=== PATIENT | female | born 1950 | race Caucasian/White ===

== ENCOUNTER → 2020-06-19 11:08 | Outpatient (CLI) | payer OTHER, SELFPAY ==
[2020-06-19 10:42] VITALS: BMI 26.5
[2020-06-19 12:01] LABS: Absolute Lymphocyte Count 1.31 X10^3/uL (0.83-4.51); Absolute Neutrophil Count 2.9 X10^3/uL (2.0-7.7); Basophil# 0.02 X10^3/uL; Basophil% 0.4 % (0-1); Eosinophil# 0.05 X10^3/uL; Eosinophils% 1.1 % (0-5); Hematocrit 37.1 % (37-47); Hemoglobin 12.1 g/dL (12.0-15.0); Lymphocyte # 1.31 X10^3/ul (4.0); Lymphocyte % 28.7 % (19-41); Mean Corp Hgb Conc 32.6 g/dL (32-36); Mean Corpuscular Hgb 31.9 pg (27.0-32.0); Mean Corpuscular Volume 97.9 fL (81-99); Mean Platelet Vol. 10.8 fl (6.2-12.0); Monocyte# 0.32 X10^3/uL; NRBC Flagged by Analyzer 0 % (0-5); Neutrophil # 2.86 X10^3/uL (2.7-7.7); Neutrophil % 62.6 % (47-70); Platelet Count 246 K/mm3 (150-450); RBC Distribution Width CV 12.8 % (11.6-14.6); RBC Distribution Width SD 45.7 fl (35.1-43.9); Red Blood Count 3.79 M/mm3 (4.2-5.4); White Blood Count 4.6 K/mm3 (4.4-11.0)
[2020-06-19 12:28] LABS: ALB/GLOB Ratio 1.2 RATIO (0.9-2.4); AST(SGOT) 20 U/L (15-37); Alanine Aminotransfer ALT/SGPT 26 U/L (13-56); Albumin, Serum 4.1 g/dL (3.2-5.0); Alkaline Phosphatase 84 U/L (45-117); Anion Gap 6 (5-15); BUN 16 mg/dL (7-18); Calcium,Total 8.7 mg/dL (8.5-10.1); Chloride 105 mmol/L (98-107); EST Glomerular Filtration Rate 76 mL/min (>60); Est Glom Filt Rate - Afr Amer 92 mL/min (>60); Globulin 3.5 g/dL (2.2-4.2); Glucose 100 mg/dL (74-106); Protein, Total 7.6 g/dL (6.4-8.2); Sodium Level 140 mmol/L (136-145); T4 Free Direct 1.01 ng/dL (0.76-1.46); Thyroid Stim Hormone (TSH) 2.69 uIU/mL (0.358-3.74)
--- NOTE | 2020-06-19 16:49 | US_ITS ---
We are attempting to reach an attending provider to discuss findings. An addendum with communication details will be sent when the communication is complete. STUDY: ULTRASOUND TRANSVAGINAL CLINICAL: Female, 69 years old. Post menopausal bleeding -- HEAVY BLEEDING SINCE THIS MORNING TECHNIQUE: Transvaginal COMPARISON: None. FINDINGS: Normal uterine size measuring 7.3 x 5.7 x 4.1 cm in maximal craniocaudal dimension. There are no myometrial masses. Normal endometrial thickness measuring 19.1 mm. There is a small hyperechoic nodule within the endometrial lining with internal vascularity and adjacent cystic areas measuring 2.7 x 3.3 x 1.5 cm Normal uterine cervix. Right ovary is not visualized. There is no adnexal mass. Left ovary is not visualized. There is no adnexal mass. There is no free fluid in the pelvis. US/Transvaginal Non- IMPRESSION: Endometrial polypoid lesion with internal vascularity which may be consistent with polypoid neoplasm however clinical correlation is recommended Electronically Signed: Jose Yanes MD at 18:36 EDT , Service support ,
== END ==
PROVIDERS: PCP Internal Medicine; Referring Provider Internal Medicine; Visit Provider Internal Medicine
DX: N95.0 Postmenopausal bleeding (principal); I10 Essential (primary) hypertension
CPT/HCPCS: 36415; 76830; 80053; 84439; 84443; 85025

== ENCOUNTER → 2020-06-24 15:32 | Outpatient (CLI) | payer OTHER, SELFPAY ==
--- NOTE | 2020-06-24 | IMM_PTH ---
PATIENT: CARY SPRAGUE LOC: [facility] U#:[id number] AGE/SX: 74/F ROOM: RE06/24/[address]: MALATHI Amaya : 1950 BED: DIS: SPEC #: [id number] RECD: 06/26/20 10:55 STATUS: ANGIE REQ #: [id number] YULY: 06/24/20 00:[address]: Linda Nieves NP DEPT: IMMUNOHISTOCHEMISTRY RECD BY: Matilde Willams ENTERED: 06/26/20 11:02 SP TYPE: IMMUNO OTHR DR: Dr. Jose L Wiseman MD Tissues: Endometrium, NOS Procedures: MSH2 (add) MLH-1 (add) MSH6 (add) Anti-PMS2 (add) CEA (add) CK20 (add) CK7 (add) CK8 (add) DIAZ-2 (add) RODRICK (add) P53 (add) VA (add) Vimentin (add) Pankeratin (add) ER (initial) PHYSICIAN & [address] [address] SPECIMEN INFORMATION: Tissue Source: Endometrial biopsy Clinical Info: [facility] Specimen Number: [id number] #2 CPT code: 93108, 84827 x14 METHODOLOGY: Deparaffinized sections of prefer/formalin-fixed tissue or PAP/DQ stained slides are incubated with monoclonal/polyclonal antibodies/oligonucleotide probes. Localization is made via biotin free immunoperoxidase method. Appropriate controls are performed and reacted as expected. Results on target cell population are indicated in the following table: RESULTS: ANTIBODY / CLONE RESULT Block 2 ER (6F11) positive VA (1E2) negative AE1-3 (AE1/AE3/PCK26) positive CK7 (OV-TL12/30) positive CK8 (75bwnmV99) positive CK20 (KS20.8) negative Vimentin (V9) positive RODRICK (E29) positive CEA (11-7/TF-3HB-1) negative P53 (DO-7) positive, >95% DIAZ-2 (SP21) positive MLH-1 (M1) positive MSH2 (25D12) positive MSH6 (44) positive PMS2 (XOD4351) positive These tests were developed and their performance characteristics determined by [facility]. They may not have been cleared or approved by the U.S. Food and Drug Administration. The FDA has determined that such clearance or approval is not necessary. The above immunohistochemical/dualISH markers are ordered and reviewed by the Pathologist. INTERPRETATION: Endometrial biopsy: Papillary adenocarcinoma. Result of Microsatellite Instability Study: Negative (no loss of mismatch protein; no microsatellite instability detected). AM:dennis 06/29/2020
[2020-06-24 10:04] VITALS: BMI 25.7
--- NOTE | 2020-06-24 10:20 | EMB_PTH ---
PATIENT: CARY SPRAGUE LOC: [facility] U#:[id number] AGE/SX: 74/F ROOM: RE06/24/[address]: MALATHI Amaya : 1950 BED: DIS: SPEC #: [id number] RECD: 06/24/20 13:27 STATUS: ANGIE TERESA #: [id number] YULY: 06/24/20 10:[address]: Linda Nieves NP DEPT: SURGICAL PATHOLOGY RECD BY: Lou Hedrick ENTERED: 06/25/20 07:18 SP TYPE: ENDOM BX/C KARI DR: Dr. Jose L Wiseman MD Tissues: Endometrium, NOS Procedures: Surgery Specimen Level IV HEADER OPERATION: Endometrial biopsy PRE-OP DIAGNOSIS: PMB TISSUE SUBMITTED: Endometrial biopsy MICROSCOPIC DIAGNOSIS Endometrium, biopsy: Endometrial adenocarcinoma, predominantly papillary morphology, FIGO grade 3. See comment. AM:dennis 06/26/2020 COMMENT Immunohistochemistry ([id number]) supports the above diagnosis. Case has been reviewed in consultation with Dr. Noriega who concurs with the above diagnosis. IDC:SJ MICROSCOPIC DESCRIPTION Slides are reviewed. GROSS DESCRIPTION Received is one container labeled with the patient's name and not further designated. The specimen consists of multiple fragments of hemorrhagic soft tissue that in aggregate measure 7.5 x 3 x 0.3 cm. The specimen is totally submitted in three cassettes. / KATHY:dennis 06/25/20 TC:0 CPT: 95277
[2020-06-24 14:09] VITALS: BMI 25.5
--- NOTE | 2020-06-24 15:36 | BI_ITS ---
MAMMOGRAPHY - BILATERAL SCREENING REASON FOR EXAM: Female, 69 years old. Routine annual screening examination. PERTINENT HISTORY: Non-contributory. TECHNIQUE: Digital bilateral breast rian (3D mammographic acquisition) in the CC and MLO projections. 2-D mediolateral oblique (MLO) and craniocaudad (CC) views of both breasts were obtained. CAD: Full Field Digital Mammography with Computer Added Detection was performed. COMPARISON: Comparison is made with prior study dated 10/21/2016 and 01/09/2014. FINDINGS: Breast Composition: There are scattered areas of fibroglandular density. There are no dominant masses or suspicious calcifications. No other significant abnormalities are identified. There has been no significant change since the prior study. BI/SCRN MAMM (CAD)W/RIAN BILAT IMPRESSION: Stable bilateral screening mammogram. Yearly follow-up mammogram recommended. (A) ASSESSMENT CATEGORY: BIRADS Category 1: Negative. A letter regarding these results will be sent to the patient by the facility within 30 days. Approximately 10% of breast cancers are not detected by mammography. A normal mammogram should not delay biopsy of a clinically suspicious abnormality. [id number] Electronically Signed: Russ Lion MD at 8:24 EDT , Service support ,
[2020-06-29 16:28] LABS: HPV APTIMA, High Risk Negative (Negative)
== END ==
PROVIDERS: PCP Internal Medicine; Referring Provider Nurse Practitioner Women's Health; Visit Provider Nurse Practitioner Women's Health
DX: Z12.31 Encounter for screening mammogram for malignant neoplasm of breast (principal); Z12.4 Encounter for screening for malignant neoplasm of cervix; C54.1 Malignant neoplasm of endometrium; N95.0 Postmenopausal bleeding
CPT/HCPCS: 77063; 77067; 87624; 88175; 88305; 88341; 88342; G0145

== ENCOUNTER → 2020-08-13 09:04 | Outpatient (CLI) | payer OTHER, SELFPAY ==
[2020-06-24 14:09] VITALS: BMI 25.5
[2020-08-10 13:01] VITALS: BMI 25.5
--- NOTE | 2020-08-13 09:08 | NM_ITS ---
CLINICAL: 69-year-old female with reported history of endometrial carcinoma. WHOLE BODY 99m Tc MDP RADIONUCLIDE BONE SCINTIGRAPHY COMPARISON: None available FINDINGS: Following the intravenous administration of 23.0 mCi of 99m Tc MDP, whole body bone images reveal: 1. Increased radiopharmaceutical concentration is identified in the acromioclavicular and glenohumeral compartments of both shoulders, sternoclavicular compartment of the left shoulder, bilateral wrists and hands, both knees, the left ankle, right-left midfoot and left forefoot. 2. The remaining skeletal structures are scintigraphically unremarkable with normal-appearing renal images and urinary bladder activity identified. NM/Bone Scan Whole Body IMPRESSION: 1. The increase in tracer uptake defined in the bilateral shoulders, right and left wrists, both hands, knees bilaterally, the left ankle, right-left midfoot and left forefoot is most consistent with degenerative arthritis. Plain film radiography correlation may be of benefit in the region of the right knee. 2. No other definitive scintigraphic abnormalities are noted. There is no typical scintigraphic evidence of diffuse axial skeletal metastatic disease on the current examination. Electronically Signed: Sunday Granados DO at 23:10 EDT Tel , Service support ,
== END ==
PROVIDERS: PCP Internal Medicine; Referring Provider Internal Medicine Hematology & Oncology; Visit Provider Internal Medicine Hematology & Oncology
DX: C54.1 Malignant neoplasm of endometrium (principal); C79.51 Secondary malignant neoplasm of bone
CPT/HCPCS: 78306; A9503

== ENCOUNTER → 2020-08-14 12:45 | Outpatient (CLI) | payer OTHER, SELFPAY ==
[2020-06-24 14:09] VITALS: BMI 25.5
[2020-08-10 13:01] VITALS: BMI 25.5
--- NOTE | 2020-08-14 12:49 | CT_ITS ---
STUDY: CT CHEST, ABDOMEN T PELVIS WITH CONTRAST REASON FOR EXAM: Female, 69 years old. Endometrial cancer. Initial staging. RADIATION DOSAGE (If Supplied By Facility): CTDIvol = ( 11.36 ) mGy, DLP = ( 801.65 ) mGycm TECHNIQUE: Transaxial imaging was performed following intravenous administration of ; 100mL Isovue-300. Oral contrast was also utilized. Multiplanar coronal and sagittal images were reformatted. Individualized dose optimization techniques were used for this CT. COMPARISON: Whole-body bone scan, 08/13/2020. FINDINGS: CHEST The lungs are normal. There is no demonstrated pleural abnormality. Normal heart and pericardium. Normal mediastinum. Normal hilar regions. Normal unenhanced pulmonary arteries. Normal aorta arch and descending thoracic aorta. Mild degenerative changes of the thoracic spine. No lytic or blastic lesions. No evidence of fracture. ABDOMEN Liver is enlarged. There is a 7.7 x 7.7 x 7.0 cm cyst in segment 7 of the liver. A smaller 2.3 x 1.7 x 1.6 cm cyst is seen in segment IVb. There is no enhancing mass. Normal gallbladder and extrahepatic biliary system. Normal spleen. Normal pancreas. Normal bilateral adrenal glands. Normal right kidney. There is a 2.2 cm in the upper pole of the left kidney. No hydronephrosis. Normal bilateral ureters. Normal visualized stomach. Normal small intestine. Disease is seen in the colon without mass or obstruction. There are surgical clips in the region of the appendix consistent with a prior appendectomy. No evidence of mesenteric mass. Minimal atherosclerotic changes of the abdominal aorta without aneurysm or dissection. Normal inferior vena cava. Normal retroperitoneum. PELVIS Urinary bladder is poorly distended but appears otherwise unremarkable. Unremarkable vaginal cuff. There is no pelvic lymphadenopathy or mass. No free air or free fluid is seen within the peritoneal cavity. Normal abdominal wall. There are mild degenerative changes of the lumbar spine. No lytic or blastic lesions are seen. CT/CT Chest, Abd, Pel w/Contrast IMPRESSION: 1. No evidence of local recurrence or metastatic disease. 2. Hepatic and left renal cysts. 3. Status post hysterectomy. Electronically Signed: Min Jay DO at 20:08 EDT Tel [phone], Service support ,
== END ==
PROVIDERS: PCP Internal Medicine; Referring Provider Internal Medicine Hematology & Oncology; Visit Provider Internal Medicine Hematology & Oncology
DX: C54.1 Malignant neoplasm of endometrium (principal)
CPT/HCPCS: 71260; 74177; Q9967

== ENCOUNTER → 2020-08-20 12:55 | Outpatient (CLI) | payer OTHER, SELFPAY ==
[2020-08-10 13:01] VITALS: BMI 25.5
[2020-08-17 15:37] VITALS: BMI 25.3
--- NOTE | 2020-08-20 12:58 | ECHODONC_ITS ---
Version 2 Reason For Study: HIGH RISK MEDICATION, PRE-CHEMO Procedure This was a 2D Doppler, Color Flow transthoracic echocardiogram. Myocardial strain analysis was performed in this exam to aid in the assessment of cardiac function. Exam performed in department. Left Ventricle Normal LV size. Left ventricular systolic function is normal. The estimated ejection fraction is 60 %. Stage 1 diastolic dysfunction. No regional wall motion abnormalities noted. Right Ventricle Normal RV size. Normal systolic function. Atria Normal left atrium. Normal right atrium. Mitral Valve Normal mitral valve. Tricuspid Valve Normal tricuspid valve. Mild tricuspid valve insufficiency. Pulmonary artery systolic pressure is 24 mmHg. Aortic Valve Trisinus/trileaflet aortic valve. Mild (1+) aortic valve insufficiency. Pulmonic Valve Normal pulmonic valve. Great Vessels Normal aortic root. The pulmonary artery is normal size. Normal inferior vena cava. Pericardium/Pleural No pericardial effusion. MMode/2D Measurements & Calculations LVIDd: 3.6 cm IVSd: 0.86 cm Ao root diam: 3.2 cm LVIDs: 2.4 cm LVPWd: 0.86 cm RVDd: 3.0 cm FS: 33.0 % LAV(MOD-bp): 27.9 ml LVAd ap4: 24.7 cm2 SV(MOD-sp4): 45.4 ml LAV(MOD-bp) Indexed: 16.3 ml/m2 LVLd ap4: 6.6 cm LAV(MOD-sp2): 33.9 ml EDV(MOD-sp4): 74.0 ml LAV(MOD-sp4): 19.4 ml EDV(sp4-el): 77.8 ml LVAs ap4: 14.1 cm2 LVLs ap4: 5.7 cm ESV(MOD-sp4): 28.6 ml ESV(sp4-el): 29.5 ml EF(MOD-sp4): 61.4 % EF(sp4-el): 62.0 % SV(sp4-el): 48.2 ml LA A4 area: 9.8 cm2 LA dimension(2D): 2.8 cm RA A4 area: 8.8 cm2 Time Measurements MV dec time: 0.31 sec Doppler Measurements & Calculations MV E max rian: 48.0 cm/sec Lat Peak E' Rian: 6.7 cm/sec Med Peak E' Rian: 4.7 cm/sec MV A max rian: 60.5 cm/sec E/E' lat: 7.2 E/E' med: 10.1 MV E/A: 0.79 Ao V2 max: 108.7 cm/sec AI max rian: 349.0 cm/sec LV V1 max: 109.6 cm/sec Ao max P.7 mmHg AI max P.7 mmHg LV V1 max P.8 mmHg AI dec slope: 229.0 cm/sec2 AI P1/2t: 446.4 msec PA V2 max: 79.7 cm/sec PI end-d rian: 101.3 cm/sec TR max rian: 227.0 cm/sec TR max P.3 mmHg ECHO/ONC Echo Complete Interpretation Summary Normal LV size. Left ventricular systolic function is normal. The estimated ejection fraction is 60 %. Stage 1 diastolic dysfunction. Mild (1+) aortic valve insufficiency. The global longitudinal strain is normal. The global longitudinal strain = -19. 3 % (normal). Ordering Physician: Rishi Gonzalez Referring Physician: ASHLEIGH MONTE Performed By: Rylee Marte RDCS
== END ==
PROVIDERS: PCP Internal Medicine; Referring Provider Internal Medicine Cardiovascular Disease; Visit Provider Internal Medicine Cardiovascular Disease
DX: C77.9 Secondary and unspecified malignant neoplasm of lymph node, unspecified (principal); C54.1 Malignant neoplasm of endometrium; M85.80 Other specified disorders of bone density and structure, unspecified site; M19.90 Unspecified osteoarthritis, unspecified site; Z51.81 Encounter for therapeutic drug level monitoring; Z79.899 Other long term (current) drug therapy
CPT/HCPCS: 93306; 93356

== ENCOUNTER 2020-09-07 10:29 | Day surgery (SDC) | payer MEDICARE, OTHER, SELFPAY ==
[2020-08-10 13:01] VITALS: BMI 25.5
[2020-08-21 08:31] VITALS: BMI 25.4
[2020-09-07] VITALS (7 sets, daily range): BP systolic 125–148; BP diastolic 63–77; PULSE 73–90; RESP 16; TEMP 35.7–37.1; O2SAT 98–100; BMI 25.4
[2020-09-07] MEDS: Lactated Ringers 1,000 ML 100 ML IV (11:16)
[2020-09-07] MEDS: Bupiv/Epi 0.25% 30 ML Vial (12:10)
[2020-09-07] MEDS: Cefazolin 2 GM in 0.9% Normal Saline 100 ML IV (12:10)
--- NOTE | 2020-09-07 12:13 | HP.PCM_ITS ---
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 Is patient in pain?: No Allergies levofloxacin [From Levaquin] Allergy (Severe, Verified 08/10/20 13:01) abdominal pain Medications ascorbate calcium (vitamin C) 500 mg tablet 500 mg PO DAILY 06/19/20 [History Confirmed 08/10/20] cholecalciferol (vitamin D3) 25 mcg (1,000 unit) capsule 25 mcg PO DAILY 06/19/20 [History Confirmed 08/10/20] multivitamin 1 tablet PO DAILY 06/19/20 [History Confirmed 08/10/20] Is last menstrual period known: No Post menopausal: Yes Patient : No PFSH Medical History (Updated 08/10/20 @ 12:59 by Shana Spencer) Cancer of endometrium Hemorrhoids History of fracture of ankle Osteoarthritis Osteopenia Post-menopausal bleeding Regional lymph node metastasis present Surgical History (Updated 08/10/20 @ 12:59 by Shana Spencer) History of ankle surgery History of colonoscopy (~2003) History of knee surgery History of sinus surgery Family History Father Cancer lung Sister Depression Thyroid disorder Hypertension Skin cancer Diabetes Grandmother Osteoporosis Mother Hypertension Skin cancer Aunt Cancer cervical cancer Other Arthritis Social History (Updated 08/06/20 @ 09:17 by Micki Cuellar) Smoking Status: Never smoker second hand exposure: No alcohol intake: never caffeine: Yes what type of physical activity do you participate in: walking frequency: 3-4 times per week seatbelt use: always do you feel safe at home: Yes additional social history: [employer] HPI HPI HPI: CARY SPRAGUE, is a 69 F who presents to the office today for port placement due to endometrial cancer with lymph node metastasis. Patient has completed surgery with Dr. Richey and is currently seeing Dr. Ignacio per oncology. Plan to start treatments once patient is able to be switched to Medicare. Likely beginning of August. Patient denies any abdominal pain incisions healing well. ROS General General: No weight change or fatigue Gastro Gastrointestinal: No abdominal pain, No nausea or vomiting, No diarrhea, No constipation, No blood in stool, No acid reflux, Yes hemorrhoids, No ulcers, No gallbladder problem and No black,tarry stools Exam Const General: cooperative, healthy appearing, comfortable and no acute distress Neck Neck: normal visual inspection Chest Other: Inspection palpation of upper chest normal Resp Effort & Inspection: normal respiratory effort Cardio Rate: regular rate GI Inspection: non-distended Palpation: soft, no guarding and nontender Skin General: no rashes or lesions noted Neuro General: patient oriented x3 Psych Affect: normal affect COVID (Procedure Consent) Procedure Criteria Procedure Criteria: Yes Elective The surgeon/proceduralist and patient have discussed in detail the risk of exposure to and/or potential harm posed by the COVID-19 virus with having a surgery/procedure at this time versus the risk of delaying the surgery/procedure. It is not possible to know either the risk of delaying the surgery or procedure or chance of getting an infection with perfect accuracy, but a joint decision was made between the patient and the surgeon/proceduralist to proceed at this time with the scheduled surgery/procedure as indicated on the consent form. Assessment and Plan Assessment and Plan (1) Cancer of endometrium: Status: Acute (2) Regional lymph node metastasis present: Status: Acute (3) Admission for fitting and adjustment of vascular catheter: Plan - Dr. Arielle Sol MD: I have discussed above with the patient- Port-a-Cath placement. Right possible left, scheduling for 08/27/2020 per patient request Patient has been counseled as to the risks/benefits of the procedure. I have explained the risks of the surgery, including but not limited to: infection, bleeding, injury to any blood vessels/nerves, injury to lungs (such as pneumothorax or hemothorax and need for chest tube), not having any access, nonfunctioning of port due to thrombosis, infection of port, etc. the patient understands and agrees to proceed. I have answered all the patient's questions to the patient?s satisfaction and the patient has no further questions. Arielle Sol M.D. Pager: [phone] [facility] [address] [place] [address], [address] [place] [id number] Office: [phone] I saw the patient today and individually saw and examined the patient. The patient was seen by Dr. Sol who was unable to be here today to perform her port. I discussed port placement with the patient in detail. I discussed the risk including but not limited to bleeding, infection, pneumothorax, line infection or DVT. Patient understands the risks and I will proceed with right- sided chest port placement. Davin Mccullough MD Pager: [facility] [address] [place] [phone] Office:
--- NOTE | 2020-09-07 12:54 | OP.PCM_ITS ---
Problems Associated Problem List Diagnoses (1) Cancer of endometrium: (2) Encounter for insertion of venous access port: Report of Operation Date of Procedure: 09/07/20 Pre-Operative Diagnosis: Need for vascular access for chemotherapy for endometrial carcinoma Post-Operative Diagnosis: Same Surgery/Procedure Performed:: Ultrasound and fluoroscopy guided right chest port placement utilizing right IJ Description of Procedure: After obtaining informed consent patient was brought back to the operating room MAC anesthesia was induced and the right chest and neck were prepped in normal sterile fashion. Ultrasound was used to evaluate both IJs and the right IJ was selected. Next, using a needle, the right IJ was accessed and a guidewire was passed on into the superior vena cava under fluoroscopy guidance. A small incision was made over the puncture site and the dilator introducer was placed over the guidewire. Next this was capped and the pocket was made for the port. 1% lidocaine with epinephrine was injected in the proposed port site. An incision was made with scalpel. Electrocautery was used to make a pocket under the skin and subcutaneous tissue. Hemostasis was obtained. Next, the catheter was tunneled up to the neck incision site and placed through the introducer. The peel-away introducer was removed and the position of the catheter was confirmed on fluoroscopy. Next, the catheter was trimmed and attached to the port with the locking device. Interrupted 2-0 Vicryl sutures were used to anchor the port to the chest wall and then the port was placed inside the pocket. The pocket was then flushed with saline and the port irrigated with saline. There was good blood return and the port flushed easily. The skin was closed with subcutaneous interrupted 3-0 Vicryl sutures. A single 3-0 Vicryl sutures placed under the skin at the neck incision site. Steri-Strips were placed as well as op sites. The port was then accessed with the access needle and there was good drawback and flushing. The port was then flushed with heparinized saline. The bandage was then applied. Patient tolerated procedure well, was taken to PACU in stable condition. Chest x-ray will be obtained. Grafts/Implants Used: 8 [place] [employer]Port Admit VTE Documentation VTE Mechan Device Prophylaxis: SCD's
--- NOTE | 2020-09-07 12:56 | EX.PCM.DISCH ---
Discharge Instructions Procedure Port-A-Cath Diet Discharge Diet: Light diet - advance as tolerated (Pain medication may cause nausea. You should typically eat light foods as you take your pain medication.) Activity Discharge Activity: Return to Normal Activity and May Shower (with your bandage in place in 1-2 days after surgery. DO NOT SHOWER WHEN YOUR PORT IS ACCESSED.) Dressing / Incision Call your doctor if your incision/area has: Continuous Slow Oozing, Sudden Increased Bleeding, Increased Pain/ Swelling and Increased Redness Call your doctor if you observe: Fever of 101 or Higher Remove Dressing in: tomorrow Cleanse incision/area with: Soap & Water Follow Up Care Please Follow Up With: Davin Mccullough MD When: Follow up as needed. [phone] Test Results: Test results from this visit will be discussed in further detail at your follow-up appointment, if applicable. Discharge Plan Admission Attending Provider: Davin Mccullough Primary Care Provider: Jose L Wiseman Discharge Orders/Prescriptions Prescriptions: No Action multivitamin Tablet 1 tablet PO DAILY RF: 0 cholecalciferol (vitamin D3) 25 mcg (1,000 unit) capsule 25 mcg PO DAILY RF: 0 prochlorperazine maleate 10 mg tablet 10 mg PO Q6H PRN (Reason: nausea and vomiting) Qty: 30 RF: 2 ondansetron 8 mg tablet,disintegrating 8 mg PO Q8H PRN (Reason: nausea and vomiting) Qty: 30 RF: 2 lidocaine-prilocaine 2.5-2.5 % cream 1 applic topical ONCE PRN (Reason: Port access) 30 Days Qty: 30 RF: 2 Referrals / Follow Up: Jose L Wiseman MD [Primary Care Provider] - Disposition Disposition (needs filled in before D/C Order can be placed): Home, self care
--- NOTE | 2020-09-07 13:00 | RAD_ITS ---
STUDY: X-RAY CHEST REASON FOR EXAM: Female, 69 years old. Line placement -- in pacu TECHNIQUE: Single AP portable view of the chest. COMPARISON: None. FINDINGS: A right-sided portacatheter has been placed with the tip at the junction of the superior vena cava and right atrium. Hyperinflation. The lungs are clear. There is no demonstrated pleural abnormality. Normal size heart. Normal mediastinum and kali. Normal visualized pulmonary arteries. There is atherosclerotic calcification of the aortic arch with tortuosity. There are degenerative changes of the visualized thoracic spine. Normal visualized ribs, clavicles, and shoulders. There is no demonstrated abnormality of the visualized soft tissue structures of the upper abdomen. RAD/CXR for Line Placement IMPRESSION: The tip of the right-sided edita catheter is at the junction of the superior vena cava and right atrium. Electronically Signed: Russ Lion MD at 13:22 EDT , Service support ,
== END 2020-09-07 13:45 | disposition home or self-care (01) ==
LOC: SDC 10:35 → AC 10:36
PROVIDERS: PCP Internal Medicine; Referring Provider Surgery; Visit Provider Surgery
PROC: (CPT 36561; principal; 2020-09-07 12:00)
DX: Z45.2 Encounter for adjustment and management of vascular access device (principal); C54.1 Malignant neoplasm of endometrium; C77.9 Secondary and unspecified malignant neoplasm of lymph node, unspecified; Z88.1 Allergy status to other antibiotic agents
CPT/HCPCS: 00532; 36561; 71045; 77001; J7120; C1788

== ENCOUNTER → 2020-12-21 13:10 | Outpatient (CLI) | payer MEDICARE, OTHER, SELFPAY ==
[2020-09-30 09:10] VITALS: BMI 25.6
--- NOTE | 2020-12-21 13:22 | CT_ITS ---
STUDY: CT CHEST, ABDOMEN T PELVIS WITH CONTRAST REASON FOR EXAM: Female, 70 years old. F/U UTERINE CANCER. IV AND PO CONTRAST. RADIATION DOSAGE (If Supplied By Facility): CTDIvol = ( 8.60 ) mGy, DLP = ( 754.47 ) mGycm TECHNIQUE: Transaxial imaging was performed following intravenous administration of Oral and amp; IV Gastrografin and amp; 100mL Isovue-300. Individualized dose optimization techniques were used for this CT. COMPARISON: Comparison is made with prior examination dated 08/14/2020. FINDINGS: CHEST A right-sided portacatheter is seen with the tip in the superior vena cava. Stable small benign-appearing bilateral axillary lymph nodes. Mild degree of emphysematous changes. No focal mass lesion or infiltration is seen. There is no demonstrated pleural abnormality. Normal heart and pericardium. Normal mediastinum. Normal hilar regions. Normal unenhanced pulmonary arteries. Mild degree of calcified atherosclerotic plaques of the aortic arch and descending thoracic aorta. There are degenerative changes of the thoracic spine. Increased kyphosis. There is a 7.7 cm x 7.9 cm cyst in the mid and inferior aspects of the right lobe of the liver. ABDOMEN There is a 7.7 cm x 7.9 cm cyst in the mid and inferior aspects of the right lobe of the liver. This is essentially unchanged. There is also evidence of a 2.4 cm x 1.4 cm cyst in the medial aspect of the right lobe of the liver. Normal gallbladder and extrahepatic biliary system. Normal spleen. Normal pancreas. Normal bilateral adrenal glands. Normal right kidney. There is a 2.7 cm x 2.5 summary cyst in the medial upper pole of the left kidney. Normal visualized stomach. Normal small intestine. Normal colon. The patient is status post appendectomy. There is atherosclerotic calcification of the abdominal aorta and its major visceral branches, without a demonstrated aneurysm. Normal inferior vena cava. Normal retroperitoneum. PELVIS There is evidence of a cystocele. The patient is status post hysterectomy. Normal visualized small intestine. Normal visualized colon. There is no pelvic fluid. There is no pelvic lymphadenopathy or mass lesion. Normal visualized pelvic arteries. Normal abdominal wall. There are degenerative changes of the visualized lumbar spine. CT/CT Chest, Abd, Pel w/Contrast IMPRESSION: Stable examination. Electronically Signed: Russ Lion MD at 14:40 EDT , Service support ,
[2020-12-21 13:26] LABS: CREATININE FINGERSTICK 0.7 mg/dL (0.55-1.02); EGFR FINGERSTICK > 60.0000 mL/min (>60)
[2020-12-21] MEDS: 0.9% Saline Lock 10 ML Syringe IV (13:29)
== END ==
PROVIDERS: PCP Internal Medicine; Visit Provider Internal Medicine Hematology & Oncology
DX: C54.1 Malignant neoplasm of endometrium (principal); C77.9 Secondary and unspecified malignant neoplasm of lymph node, unspecified; M85.80 Other specified disorders of bone density and structure, unspecified site
CPT/HCPCS: 36591; 71260; 74177; 80053; 85025; 86304; Q9967; A4216

== ENCOUNTER 2021-01-22 09:58 | Day surgery (SDC) | payer MEDICARE, OTHER, SELFPAY ==
--- NOTE | 2021-01-22 09:58 | HP.PCM_ITS ---
History and Physical Date of Admission: 01/22/21 Date of Service: 01/05/21 Intake Vital Signs 01/05/21 09:23 Height 5 ft 4 in Weight: 147 lb BMI 25.2 BP 145/76 H Blood Pressure Location Rt brachial Position Sitting Respiration 16 Intake Visit Reasons: C-Scope Chief Complaint: c-scope [employer] Required: No Is patient in pain?: No Allergies carboplatin Allergy (Severe, Verified 01/05/21 09:24) Rash hyaluronidase [From Herceptin Hylecta] Allergy (Severe, Verified 01/05/21 09:24) Rash paclitaxel [From Taxol] Allergy (Severe, Verified 01/05/21 09:24) Rash trastuzumab-oysk [From Herceptin Hylecta] Allergy (Severe, Verified 01/05/21 09:24) Rash levofloxacin [From Levaquin] Adverse Reaction (Severe, Verified 01/05/21 09:24) abdominal pain Medications cholecalciferol (vitamin D3) 25 mcg (1,000 unit) capsule 25 mcg PO DAILY 06/19/20 [History Confirmed 01/05/21] multivitamin 1 tablet PO DAILY 06/19/20 [History Confirmed 01/05/21] lidocaine-prilocaine 2.5 %-2.5 % topical cream 1 applic TOPICAL ONCE PRN 30 Days #30 g 08/17/20 [Rx Confirmed 01/05/21] ondansetron 8 mg disintegrating tablet 8 mg PO Q8H PRN #30 tab 08/17/20 [Rx Confirmed 01/05/21] prochlorperazine maleate 10 mg tablet 10 mg PO Q6H PRN #30 tab 08/17/20 [Rx Confirmed 01/05/21] Hydrocortisone 2.5%/lidocaine 5% suppository (cmpd) #30 ea 01/05/21 [Rx Co nfirmed 01/05/21] [facility] Medical History (Updated 01/05/21 @ 09:[address] Arielle Sol MD) Arthritis Cancer Cancer of endometrium Cardiology follow-up encounter Hemorrhoids History of fracture of ankle Hx of echocardiogram Non-smoker Osteoarthritis Osteopenia Post-menopausal bleeding Regional lymph node metastasis present Wears glasses Surgical History History of ankle surgery History of colonoscopy (2003) History of knee surgery History of sinus surgery Hx of total hysterectomy Family History Father Cancer lung Sister Depression Thyroid disorder Hypertension Skin cancer Diabetes Grandmother Osteoporosis Mother Hypertension Skin cancer Aunt Cancer cervical cancer Other Arthritis Social History Smoking Status: Never smoker second hand exposure: No alcohol intake: never caffeine: Yes what type of physical activity do you participate in: walking frequency: 3-4 times per week seatbelt use: always do you feel safe at home: Yes additional social history: [employer] [facility] HPI HPI HPI: CARY SPRAGUE, is a 70 F who presents to the office today for hemorrhoids and screening colonoscopy. Patient was recently diagnosed with endometrial adenocarcinoma in May of this year. In August patient started adjuvant chemotherapy however she did not tolerate this well and did stop after the first cycle due to side effects. Patient states she has had hemorrhoids since childhood patient has 5 kids. States that she does have some daily bleeding and needing to push the hemorrhoid back in. Patient states that she occasionally has some constipation and occasionally has some straining as well. Patient's last colonoscopy was 16 years ago. Patient denies any family history of colon cancer. Patient denies any pain with her hemorrhoids but does admit to a high pain tolerance. ROS General General: No weight change or fatigue Gastro Gastrointestinal: No abdominal pain, No nausea or vomiting, No diarrhea, No constipation, No blood in stool, No acid reflux, Yes hemorrhoids, No ulcers, No gallbladder problem and No black,tarry stools Exam Const General: cooperative, healthy appearing, comfortable and no acute distress Neck Neck: normal visual inspection Resp Effort & Inspection: normal respiratory effort Cardio Rate: regular rate GI Inspection: non-distended Palpation: soft, no guarding and nontender Rectal Exam: normal sphincter tone, hemorrhoids (Internal at about 5:00, manually reduced, no active bleeding) and No mass Skin General: no rashes or lesions noted Neuro General: patient oriented x3 Psych Affect: normal affect COVID (Procedure Consent) Procedure Criteria Procedure Criteria: Yes Elective The surgeon/proceduralist and patient have discussed in detail the risk of exposure to and/or potential harm posed by the COVID-19 virus with having a surgery/procedure at this time versus the risk of delaying the surgery/procedure. It is not possible to know either the risk of delaying the surgery or procedure or chance of getting an infection with perfect accuracy, but a joint decision was made between the patient and the surgeon/proceduralist to proceed at this time with the scheduled surgery/procedure as indicated on the consent form. Assessment and Plan Assessment and Plan (1) Hemorrhoids: Status: Inactive (2) Screening for colon cancer: Status: Acute Plan - Dr. Arielle Sol MD: Did discuss with patient that hydrocortisone/lidocaine suppositories may help with her hemorrhoids and not be at bothersome to her. Patient was willing to try medication first before going forward with any surgery. Did discuss surgery with the patient as well as that it can be a painful surgery. Also went over recommended fiber for her age is 20 g daily and gave her a sheet of high-fiber foods as well. We will schedule colonoscopy and patient will let us know if the medication does not help with her hemorrhoids and she preferred to have them excised. I have discussed the above with the patient. I have offered the patient colonoscopy for evaluation. I have explained the risks/benefits of the procedure and described the procedure. I have discussed the risks with the patient, including but not limited to: infection, bleeding, perforation of the GI tract requiring emergency surgery, inability to complete the procedure, injury to any internal organs, complications of anesthesia, etc. - the patient understands and agrees to proceed. I have answered all the patient's questions to the patient's satisfaction and the patient has no further questions. The patient has been given instructions for the colon cleansing preparation. Arielle Sol M.D. Pager: [phone] [facility] [address] [place] [address], [address] [place] [address] Office: [phone] Plan Details Other Medications: New: Hydrocortisone 2.5%/lidocaine 5% suppository (cmpd) As directed 30 ea 1RF Other Orders: Orders: Colonoscopy Today Follow Up: We will schedule colonoscopy Coding Level of Care Code Off vis,est,level 3 Diagnoses Hemorrhoids K64.9 Screening for colon cancer Z12.11 01/05/21 1001<Electronically signed by Arielle Sol MD>[facility]
[2021-01-22 10:31] VITALS: BP 124/68; PULSE 82; RESP 16; TEMP 36.5; O2SAT 99; BMI 24.9
[2021-01-22] MEDS: Lactated Ringers 1,000 ML 100 ML IV (10:35)
[2021-01-22 11:40] VITALS: BP 104/52; BP 124/68; PULSE 74; RESP 14; TEMP 35.8; O2SAT 100
--- NOTE | 2021-01-22 11:43 | OP.COLON_ITS ---
Patient Name: Genevieve Swenson Procedure Date: 01/22/2021 10:51 AM Date of : 1950 Age: 70 Procedure: Colonoscopy Indications: Screening for colorectal malignant neoplasm Providers: Arielle Sol MD Medicines: Monitored Anesthesia Care Patient Profile: This is a 70 year old female. Last Colonoscopy: more than 10 years ago. Complications: No immediate complications. Procedure: Pre-Anesthesia Assessment: - Prior to the procedure, a History and Physical was performed, and patient medications and allergies were reviewed. The patient's tolerance of previous anesthesia was also reviewed. The risks and benefits of the procedure and the sedation options and risks were discussed with the patient. All questions were answered, and informed consent was obtained. Prior Anticoagulants: The patient has taken no previous anticoagulant or antiplatelet agents. ASA Grade Assessment: Per anesthesia. After reviewing the risks and benefits, the patient was deemed in satisfactory condition to undergo the procedure. After I obtained informed consent, the scope was passed under direct vision. Throughout the procedure, the patient's blood pressure, pulse, and oxygen saturations were monitored continuously. The pediatric colonoscope was introduced through the anus and advanced to the cecum, identified by the appendiceal orifice, IC valve and transillumination. The colonoscopy was technically difficult and complex due to a tortuous colon. The patient tolerated the procedure well. The quality of the bowel preparation was good. Scope In: 11:02:07 AM Scope Withdrawal Time 0 hours 6 minutes 32 seconds Scope Out: 11:34:31 AM Total Procedure Duration Time 0 hours 32 minutes 24 seconds Findings: Hemorrhoids were found on perianal exam. Non-bleeding external and internal hemorrhoids were found. The hemorrhoids were Grade II (internal hemorrhoids that prolapse but reduce spontaneously). The exam was otherwise without abnormality. Impression: - Hemorrhoids found on perianal exam. - Non-bleeding external and internal hemorrhoids. - The examination was otherwise normal. - No specimens collected. Recommendation: - Discharge patient to home. - Resume previous diet. - Continue present medications. - Repeat colonoscopy in 10 years for screening purposes. Procedure Code(s): --- Professional --- G0121, PT, Colorectal cancer screening; colonoscopy on individual not meeting criteria for high risk Diagnosis Code(s): --- Professional --- Z12.11, Encounter for screening for malignant neoplasm of colon K64.1, Second degree hemorrhoids CPT copyright 2017 [employer]. All rights reserved. The codes documented in this report are preliminary and upon senior software tester review may be revised to meet current compliance requirements. MD Arielle Gonzalez MD 01/22/2021 11:43:03 AM This report has been signed electronically. Number of Addenda: 0 Note Initiated On: 01/22/2021 10:51 AM
--- NOTE | 2021-01-22 11:44 | OP.CCLET_ITS ---
01/22/2021 Jose L Wiseman MD [address] [place] [address] [place] [address] Re : Colonoscopy procedure for Genevieve Swenson Dear Dr. Wiseman This procedure was performed on Friday, January 22, 2021. My impressions and recommendations are as follows: Impressions : - Hemorrhoids found on perianal exam. - Non-bleeding external and internal hemorrhoids. - The examination was otherwise normal. - No specimens collected. Recommendations : - Discharge patient to home. - Resume previous diet. - Continue present medications. - Repeat colonoscopy in 10 years for screening purposes. My findings are described in the full procedure note, which is enclosed. If I can be of further assistance, please feel free to contact me at Doctor phone number(s): , Work: . Sincerely, MD Arielle Gonzalez MD 01/22/2021 11:43:03 AM This report has been signed electronically.
[2021-01-22 11:45] VITALS: BP 106/58; BP 124/68; PULSE 75; RESP 14; O2SAT 98
[2021-01-22 11:50] VITALS: BP 110/56; BP 124/68; PULSE 78; RESP 16; O2SAT 99
[2021-01-22 11:56] VITALS: BP 107/61; BP 124/68; PULSE 69; RESP 16; TEMP 36.2; O2SAT 98
[2021-01-22 12:39] VITALS: BP 124/68
== END 2021-01-22 12:59 | disposition home or self-care (01) ==
LOC: EN 10:01 → AC 10:01
PROVIDERS: PCP Internal Medicine; Referring Provider Internal Medicine; Visit Provider Surgery
PROC: 0DJD8ZZ Inspection of Lower Intestinal Tract, Via Natural or Artificial Opening Endoscopic (ICD-10-PCS; CPT 45378; principal; 2021-01-22 10:55)
DX: Z12.11 Encounter for screening for malignant neoplasm of colon (principal); K64.1 Second degree hemorrhoids; C54.1 Malignant neoplasm of endometrium; M19.90 Unspecified osteoarthritis, unspecified site
CPT/HCPCS: G0121; J7120; A4216; J2405

== ENCOUNTER 2021-02-24 09:31 | Day surgery (SDC) | payer MEDICARE, OTHER, SELFPAY ==
[2021-02-24] VITALS (7 sets, daily range): BP systolic 132–154; BP diastolic 65–84; PULSE 78–94; RESP 14–16; TEMP 36–36.8; O2SAT 93–98; BMI 25.0
[2021-02-24] MEDS: Lactated Ringers 1,000 ML 100 ML IV (09:45)
--- NOTE | 2021-02-24 10:34 | PCM.HP.STD ---
HPI - General HPI Narrative CARY SPRAGUE, is a 70 F who presents for hemorrhoidectomy. Patient did have a screening colonoscopy which was negative only showed internal/external hemorrhoids. Patient states she still has daily bleeding and needing to push the hemorrhoid back in. Patient denies any family history of colon cancer. Patient denies any pain with her hemorrhoids but does admit to a high pain tolerance. [facility] Medical History (Updated 02/24/21 @ 10:[address] Arielle Sol MD) Arthritis Cancer Cancer of endometrium Cardiology follow-up encounter Hemorrhoids History of fracture of ankle Hx of echocardiogram Non-smoker Osteoarthritis Osteopenia Port-A-Cath in place Post-menopausal bleeding Regional lymph node metastasis present Wears glasses Home Medications cholecalciferol (vitamin D3) 25 mcg (1,000 unit) capsule 25 mcg PO DAILY 06/19/20 [History Last Taken Unknown] multivitamin 1 tablet PO DAILY 06/19/20 [History Last Taken Unknown] Hydrocortisone 2.5%/lidocaine 5% suppository (cmpd) #30 ea 01/05/21 [Rx Last Taken Unknown] B-complex with vitamin C [Vitamin B Complex-8] 1 tab PO DAILY 01/07/21 [History Last Taken Unknown] ascorbic acid (vitamin C) [Vitamin C] 500 mg PO DAILY 01/07/21 [History Last Taken Unknown] Allergy/AdvReac Type Severity Reaction Status Date / Time carboplatin Allergy Severe Rash Verified 02/17/21 09:26 hyaluronidase Allergy Severe Rash Verified 02/17/21 09:26 [From Herceptin Hylecta] paclitaxel [From Taxol] Allergy Severe Rash Verified 02/17/21 09:26 trastuzumab-oysk Allergy Severe Rash Verified 02/17/21 09:26 [From Herceptin Hylecta] levofloxacin [From Levaquin] AdvReac Severe abdominal Verified 02/17/21 09:26 pain Family History Father Cancer lung Sister Depression Thyroid disorder Hypertension Skin cancer Diabetes Grandmother Osteoporosis Mother Hypertension Skin cancer Aunt Cancer cervical cancer Other Arthritis Surgical History History of ankle surgery History of colonoscopy (2003) History of knee surgery History of sinus surgery Hx of total hysterectomy Social History Smoking Status: Never smoker second hand exposure: No alcohol intake: never caffeine: Yes what type of physical activity do you participate in: walking frequency: 3-4 times per week seatbelt use: always do you feel safe at home: Yes additional social history: [employer] [facility] Vital Signs Vital Signs Vital Signs: 02/24/21 09:30 02/24/21 10:25 Temperature 98.2 F Temperature Source Temporal Pulse Rate 78 Respiratory Rate 16 Respiratory Pattern Normal Blood Pressure 142/76 H Blood Pressure Mean 98 Blood Pressure Source Monitor Blood Pressure Position Semi-Fowlers Blood Pressure Location Left Arm Pulse Ox 98 Oxygen Delivery Method Room Air Weight Weight: 146 lb Body Mass Index (BMI) 25.0 Physical Exam Const alert, oriented x3 and no apparent distress HEENT normocephalic and head/scalp atraumatic Resp normal respiratory effort Cardio regular rate GI soft to palpation and non-tender; Negative for non-distended Palpation: Negative for guarding Extremity no clubbing, cyanosis or edema Neuro CN's II-XII intact bilaterally Psych mental status grossly normal Assessment & Plan Assessment/Plan (1) Hemorrhoids: PLAN: Discussed plan for hemorrhoidectomy with the patient including risks not limited to bleeding, infection, anesthesia. Patient no further question this time. Arielle Sol M.D. Pager: [phone] [facility] [address] [place] [address] [place] [address] Office: [phone] Procedure Criteria Type of Procedure Procedure Type: Elective Elective Risks - COVID COVID Risk Discussion: The surgeon/proceduralist and patient have discussed in detail the risk of exposure to and/or potential harm posed by the COVID-19 virus with having a surgery/procedure at this time versus the risk of delaying the surgery/procedure. It is not possible to know either the risk of delaying the surgery or procedure or chance of getting an infection with perfect accuracy, but a joint decision was made between the patient and the surgeon/proceduralist to proceed at this time with the scheduled surgery/procedure as indicated on the consent form.
--- NOTE | 2021-02-24 11:00 | HEM_PTH ---
PATIENT: CARY SPRAGUE LOC: [facility] U#:[id number] AGE/SX: 70/F ROOM: RE02/24/[address]: Dr. Arielle Sol MD : 1950 BED: DIS: 02/24/2021 SPEC #: [id number] RECD: 02/24/21 13:26 STATUS: ANGIE RERadha #: [id number] YULY: 02/24/21 11:[address]: Arielle Sol DEPT: SURGICAL PATHOLOGY RECD BY: Lou Hedrick ENTERED: 02/24/21 13:44 SP TYPE: HEMORRHOID OTHR DR: Dr. Jose L Wiseman MD Tissues: HEMORRHOIDS Procedures: Surgery Specimen Level III HEADER OPERATION: Hemorrhoidectomy PRE-OP DIAGNOSIS: Hemorrhoids TISSUE SUBMITTED: Hemorrhoid MICROSCOPIC DIAGNOSIS Hemorrhoid, hemorrhoidectomy: Pieces of anorectal mucosa with dilated and congested blood vessels, consistent with hemorrhoids. SJ:dennis 02/25/2021 MICROSCOPIC DESCRIPTION Slides are reviewed. GROSS DESCRIPTION Received in fixative is one container labeled with the patient's name and designated hemorrhoid. The specimen consists of two pieces of dial mucosal tissue measuring in aggregate 2.5 x 1.5 x 0.5 cm. Sections reveal congested cut surfaces. The entire specimen is submitted in one cassette. / KATHY:dennis 02/24/21 TC:5 CPT: 98658
[2021-02-24] MEDS: Lubricating Jelly 60 GM Tube 30 GM (11:20)
[2021-02-24] MEDS: Dibucaine 30 GM Tube 1 APPLIC (11:36)
[2021-02-24] MEDS: BUPIVACAINE LIPOSOME/PF 20 ML VIAL OPERA.SITE (11:38)
--- NOTE | 2021-02-24 11:41 | PCM.OPRPT ---
Report of Operation Date of Procedure: 02/24/21 Pre-Operative Diagnosis: Internal/external hemorrhoid Post-Operative Diagnosis: Same Surgery/Procedure Performed:: Hemorrhoidectomy Surgeon: Arielle Sol supervisor mold construction: Mira Holguin Type of Anesthesia: General/Supplemental Anesthesiologist: Boris Perla Special Medications: None Estimated Blood Loss (mL): < 10 cc Description of Procedure: The patient was brought into the operating room and general anesthesia was induced. She was placed in prone jackknife lithotomy position. A timeout was completed verifying correct patient, procedure, site, position, and special equipment prior to beginning the procedure. The buttocks were taped apart. Perineum was prepared prepped and draped in standard sterile fashion. Local anesthesia was injected as a perianal nerve block-Exparel. A total of 20 cc of Exparel was used throughout the case. Anus carefully dilated. Small then medium Hill-Glaser retractor were introduced and 3 marginal pedicles identified. She was noted to have internal and external hemorrhoids at the right posterior location which were prolapsed with the jackknife position. 2-0 Vicryl suture was placed at the base of the right posterior pedicle and retracted externally to exteriorize the hemorrhoidal pedicles. An elliptical incision was made extending from perianal skin to anal rectal ring including both internal and external hemorrhoids and excising a minimal amount of anoderm. Cautery was used to separate the hemorrhoid from the underlying tissue. Careful not to involve any of the sphincter muscle. The pedicle was excised from the base and sent to pathology. Additional residual hemorrhoidal tissue was taken from 5-6 o'clock (anterior) this was also sutured with 2-0 chromic. Hemostasis was achieved using electrocautery. Following the hemostasis the skin and mucosal incisions were closed with the running lock stitch of 2-0 chromic. A Surgifoam with dibucaine was placed in the anus. A gauze pad tucked between the gluteal folds. The patient tolerated procedure well and was extubated and taken to the postanesthesia care unit in stable condition. Complications none
--- NOTE | 2021-02-24 11:45 | EX.PCM.DISCH ---
Discharge Instructions Procedure Rectal Surgery Diet Discharge Diet: No restrictions Activity Discharge Activity: Return to Normal Activity and May Not Drive (while you are taking narcotic pain medications. ) Additional Activity Instructions:: Be aware that pain medications may cause nausea. You should typically eat light foods as you take your pain medications. Pain medications may also cause constipation, if you have difficulty with this please discuss with your doctor. Dressing / Incision Additional Dressing/Incision Instructions:: A local anesthetic plug was placed in the anal area, try not to expel for 24-48 hours--it is okay if it comes out on its own. Place dibucaine ointment on the perianal area as needed. Sitz baths twice daily and after bowel movements. Follow Up Care Please Follow Up With: Arielle Sol MD When: Please call [phone] to schedule a follow up appointment to be 2 weeks after surgery. Test Results: Test results from this visit will be discussed in further detail at your follow-up appointment, if applicable. Discharge Plan Admission Attending Provider: Arielle Sol Primary Care Provider: Jose L Wiseman Discharge Orders/Prescriptions Prescriptions: No Action multivitamin Tablet 1 tablet PO DAILY RF: 0 cholecalciferol (vitamin D3) 25 mcg (1,000 unit) capsule 25 mcg PO DAILY RF: 0 (DME) Hydrocortisone 2.5%/lidocaine 5% suppository (cmpd) Suppository See Rx Instructions .ROUTE .MEDSUPPLY Qty: 30 RF: 1 ascorbic acid (vitamin C) [Vitamin C] 500 mg Tablet 500 mg PO DAILY RF: 0 B-complex with vitamin C [Vitamin B Complex-8] Tablet 1 tab PO DAILY RF: 0 Referrals / Follow Up: Jose L Wiseman MD [Primary Care Provider] - Disposition Disposition (needs filled in before D/C Order can be placed): Home, Self Care
--- NOTE | 2021-02-24 13:05 | SUR.PHASEII ---
Phase 2 assessment; port remains accessed. Infusion per order. Will cont to monitor.
== END 2021-02-24 13:52 | disposition home or self-care (01) ==
LOC: SDC 09:35 → AC 09:36
PROVIDERS: PCP Internal Medicine; Referring Provider Surgery; Visit Provider Surgery
PROC: (CPT 46255; principal; 2021-02-24 10:45)
DX: K64.4 Residual hemorrhoidal skin tags (principal); K64.8 Other hemorrhoids; M19.90 Unspecified osteoarthritis, unspecified site; M85.80 Other specified disorders of bone density and structure, unspecified site; Z85.42 Personal history of malignant neoplasm of other parts of uterus
CPT/HCPCS: 46255; 88304; J7120; A4216; J2405

== ENCOUNTER → 2021-03-22 12:57 | Outpatient (CLI) | payer MEDICARE, OTHER, SELFPAY ==
--- NOTE | 2021-03-22 12:59 | CT_ITS ---
STUDY: CT CHEST, ABDOMEN T PELVIS WITH CONTRAST REASON FOR EXAM: Female, 70 years old. Endometrial cancer. RADIATION DOSAGE (If Supplied By Facility): CTDIvol = ( 11.53 ) mGy, DLP = ( 1067.09 ) mGycm TECHNIQUE: Transaxial imaging was performed following intravenous administration of 100 mL Isovue-370. Individualized dose optimization techniques were used for this CT. COMPARISON: December 21, 2020. FINDINGS: CHEST The lungs are normal. There is no demonstrated pleural abnormality. Right-sided port implanted in the anterior chest wall. Port tip at the cavoatrial junction. Normal heart and pericardium. Normal mediastinum. Normal hilar regions. Normal unenhanced pulmonary arteries. Normal aorta arch and descending thoracic aorta. Normal osseous structures. ABDOMEN Stable simple hepatic cysts. Normal gallbladder and extrahepatic biliary system. Normal spleen. Normal pancreas. Normal bilateral adrenal glands. Normal right kidney. Stable superior pole simple left renal cyst. Stable appearance of the stomach which is not well distended. Normal small intestine. Normal colon. Stool is present throughout the colon which could represent constipation. The appendix is visualized and appears normal. Normal abdominal aorta. Normal inferior vena cava. Normal retroperitoneum. No intra-abdominal free air. Normal abdominal wall. Mild degenerative changes of the thoracic spine. Lower thoracic kyphosis unchanged. PELVIS Normal urinary bladder. Uterus is absent compatible with hysterectomy. No adnexal masses seen. Normal visualized small intestine. Normal visualized colon. There is no pelvic fluid. There is no pelvic lymphadenopathy or mass lesion. Normal visualized pelvic arteries. Normal abdominal wall. Normal osseous structures. CT/CT Chest, Abd, Pel w/Contrast IMPRESSION: Stable CT chest, abdomen and pelvis. No acute findings. No evidence of metastatic disease. No thoracic, abdominal or pelvic lymphadenopathy. Stable simple hepatic and left renal cysts which require no further evaluation. Electronically Signed: Raul Chapin MD at 4:22 EST , Service support ,
[2021-03-22] MEDS: 0.9% Saline Lock 10 ML Syringe IV (13:40)
== END ==
PROVIDERS: PCP Internal Medicine; Referring Provider Internal Medicine Hematology & Oncology; Visit Provider Internal Medicine Hematology & Oncology
DX: C54.1 Malignant neoplasm of endometrium (principal)
CPT/HCPCS: 71260; 74177; Q9967; A4216

== ENCOUNTER → 2021-06-28 | Outpatient (CLI) | payer MEDICARE, OTHER, SELFPAY ==
--- NOTE | 2021-06-28 10:19 | BI_ITS ---
MAMMOGRAPHY - BILATERAL SCREENING REASON FOR EXAM: Female, 70 years old. Routine annual screening examination. PERTINENT HISTORY: Non-contributory. TECHNIQUE: Digital bilateral breast rian (3D mammographic acquisition) in the CC and MLO projections. 2-D mediolateral oblique (MLO) and craniocaudad (CC) views of both breasts were obtained. CAD: Full Field Digital Mammography with Computer Added Detection was performed. COMPARISON: Comparison is made with prior study dated 06/24/2020 and 04/23/2016. FINDINGS: Breast Composition: There are scattered areas of fibroglandular density. Focal area of architectural distortion in the deep upper lateral aspect of the right breast. Correlation with ultrasound is recommended. No other significant abnormalities are identified. BI/SCRN MAMM (CAD)W/RIAN BILAT IMPRESSION: Focal area of architectural distortion is seen in the deep upper lateral aspect of the right breast as described. Correlation with ultrasound is recommended. ASSESSMENT CATEGORY: BIRADS Category 0: Incomplete. Need additional imaging evaluation. A letter regarding these results will be sent to the patient by the facility within 30 days. Approximately 10% of breast cancers are not detected by mammography. A normal mammogram should not delay biopsy of a clinically suspicious abnormality. [id number] Electronically Signed: Russ Lion MD at 11:24 EDT ,
== END | disposition home or self-care (01) ==
LOC: OPBI 10:18
PROVIDERS: PCP Internal Medicine; Visit Provider Internal Medicine Hematology & Oncology
DX: Z12.31 Encounter for screening mammogram for malignant neoplasm of breast (principal); C77.9 Secondary and unspecified malignant neoplasm of lymph node, unspecified; C54.1 Malignant neoplasm of endometrium; N64.89 Other specified disorders of breast
CPT/HCPCS: 36591; 77063; 77067; 80053; 85025; 86304; A4216

== ENCOUNTER 2021-06-29 10:43 | Outpatient (CLI) | payer MEDICARE, OTHER, SELFPAY ==
--- NOTE | 2021-06-29 10:45 | US_ITS ---
STUDY: ULTRASOUND BREAST - RIGHT REASON FOR EXAM: Female, 70 years old. Abnormal screening mammogram. TECHNIQUE: Axial and longitudinal images of the RIGHT breast were performed with a high resolution ultrasound transducer. # OF IMAGES: 26 COMPARISON: Comparison is made with prior mammogram dated 06/28/2021. FINDINGS: RIGHT Breast: The upper outer aspect of the right breast was examined by ultrasound. No sonographic abnormality is seen. Additional mammographic views will be obtained. US/Breast Limited Unilateral IMPRESSION: Unremarkable targeted ultrasound. The patient will be recalled for additional views including 90 degree lateral and compression spot views in the cranial caudad and the lateral oblique projections. ASSESSMENT CATEGORY: BIRADS Category 0: Incomplete. Need additional imaging evaluation. A letter regarding these results will be sent to the patient by the facility within 30 days. Electronically Signed: Russ Lion MD at 11:22 EDT ,
--- NOTE | 2021-06-29 11:11 | BI_ITS ---
MAMMOGRAPHY - UNILATERAL DIAGNOSTIC: RIGHT BREAST REASON FOR EXAM: Female, 70 years old. Abnormal screening mammogram. PERTINENT HISTORY: Non-contributory. TECHNIQUE: Compression views of the right breast in the mediolateral oblique and craniocaudad views were obtained. CAD: Full Field Digital Mammography with Computer Added Detection was performed. COMPARISON: Comparison is made with prior mammogram dated 06/28/2021. FINDINGS: Breast Composition: There are scattered areas of fibroglandular density. The focal area of architectural distortion persists. Since the targeted sonogram was negative, correlation with MRI scan is recommended. No other significant abnormalities are identified. BI/DIAG MAMM W/CAD, UNILAT IMPRESSION: Persistent architectural distortion in the upper lateral aspect of the breast. Correlation with MRI is recommended. ASSESSMENT CATEGORY: BIRADS Category 0: Incomplete. Need additional imaging evaluation. A letter regarding these results will be sent to the patient by the facility within 30 days. Approximately 10% of breast cancers are not detected by mammography. A normal mammogram should not delay biopsy of a clinically suspicious abnormality. Electronically Signed: Russ Lion MD at 13:39 EDT ,
== END 2021-06-29 23:59 | disposition home or self-care (01) ==
PROVIDERS: PCP Internal Medicine; Referring Provider Internal Medicine Hematology & Oncology; Visit Provider Internal Medicine Hematology & Oncology
DX: R92.2 Inconclusive mammogram (principal)
CPT/HCPCS: 76642; 77065

== ENCOUNTER → 2021-07-16 | Outpatient (CLI) | payer MEDICARE, OTHER, SELFPAY ==
--- NOTE | 2021-07-16 12:32 | MRI_ITS ---
STUDY: BILATERAL BREAST MR WITHOUT AND WITH CONTRAST REASON FOR EXAM: Female, 70 years old. Architectural distortion on mammogram with negative ultrasound. Further evaluation. TECHNIQUE: Multi-sequence multi-echo imaging of both breasts was performed with a dedicated breast coil. T1-weighted and T2-weighted images were performed before the administration of contrast. T1-weighted images were also performed after the intravenous administration of 14mL of DOTAREM. COMPARISON: Right breast mammogram dated 06/29/2021, right breast ultrasound dated 06/29/2021, bilateral mammograms dated 06/28/2021 and 06/24/2020. FINDINGS: RIGHT BREAST: The breast tissue is scattered fibroglandular densities with marked background enhancement which can lower the sensitivity of breast MRI for detection of small masses or small areas of non-mass enhancement. Asymmetric glandular tissue is noted in the upper outer quadrant of the right breast. No suspicious lesions. There are no other abnormal enhancing masses or areas of non-mass enhancement in the right breast. LEFT BREAST: The breast tissue is scattered fibroglandular densities with marked background enhancement which can lower the sensitivity of breast MRI for detection of small masses or small areas of non-mass enhancement. There are no abnormal enhancing masses or areas of non-mass enhancement in the left breast. There are no enlarged or abnormal lymph nodes. There is no abnormality in the visualized regions of the chest or liver. MRI/Breast Bilateral W/O and W IMPRESSION: Minimal asymmetric breast tissue in the right breast. Given the minimal architectural distortion, a six-month follow-up right diagnostic mammogram and repeat ultrasound would be appropriate. CATEGORY: BIRADS Category 3: Probably Benign - Short-Interval Follow-up Suggested. A letter regarding these results will be sent to the patient by the facility within 30 days. Electronically Signed: Jesus Brandt MD at 10:45 EDT ,
== END | disposition home or self-care (01) ==
LOC: MRI 12:32
PROVIDERS: PCP Internal Medicine; Referring Provider Internal Medicine Hematology & Oncology; Visit Provider Internal Medicine Hematology & Oncology
DX: R92.8 Other abnormal and inconclusive findings on diagnostic imaging of breast (principal); R92.2 Inconclusive mammogram
CPT/HCPCS: 77049; A9575; A4216; C8908

== ENCOUNTER 2021-10-11 08:00 | Outpatient (CLI) | payer MEDICARE, OTHER, SELFPAY ==
--- NOTE | 2021-10-11 08:01 | CT_ITS ---
STUDY: CT CHEST, ABDOMEN T PELVIS WITH CONTRAST REASON FOR EXAM: Female, 70 years old. F/U ENDOMETRIAL CANCER RADIATION DOSAGE (If Supplied By Facility): CTDIvol = ( 11.56 ) mGy, DLP = ( 985.85 ) mGycm TECHNIQUE: Transaxial imaging was performed following intravenous administration of Oral and IV Readi-CAT and 100mL Isovue-300. Multiplanar coronal and sagittal images were reformatted. Individualized dose optimization techniques were used for this CT. COMPARISON: Comparison is made with prior examination dated 03/22/2021. FINDINGS: A right-sided portacatheter is seen with the tip in the superior vena cava. CHEST Stable small benign-appearing bilateral axillary lymph nodes. The lungs are normal. There is no demonstrated pleural abnormality. Normal heart and pericardium. Normal mediastinum. Normal hilar regions. Normal unenhanced pulmonary arteries. Normal aorta arch and descending thoracic aorta. There are multi-level degenerative changes of the thoracic spine. 7.7 cm x 8.2 cm cyst in the dome of the right lobe of the liver. ABDOMEN The visualized lung bases are unremarkable. The visualized portions of the heart are within normal limits. Stable 7.7 cm x 8.2 cm cyst in the dome of the right lobe of the liver. Stable 2.2 cm cyst in the medial aspect of the anterior right lobe of the liver. Normal gallbladder and extrahepatic biliary system. Normal spleen. Normal pancreas. Normal bilateral adrenal glands. Normal right kidney. Stable 2.6 cm x 2.7 cm cyst in the upper medial portion of the left lobe of the liver. Normal visualized stomach. Normal small intestine. Moderate amount of fecal material is seen in the colon. The appendix is visualized and appears normal. There is scattered atherosclerotic calcification of the abdominal aorta, without a demonstrated aneurysm. Normal inferior vena cava. Normal retroperitoneum. PELVIS Normal urinary bladder. The patient is status post hysterectomy. There is no pelvic fluid. There is no pelvic lymphadenopathy or mass lesion. Normal visualized pelvic arteries. Normal abdominal wall. There are degenerative changes of the visualized lumbar spine. CT/CT Chest, Abd, Pel w/Contrast IMPRESSION: Stable examination. Electronically Signed: Russ Lion MD at 9:48 EDT ,
[2021-10-11] MEDS: 0.9% Saline Lock 10 ML Syringe IV (08:15)
[2021-10-11 08:31] LABS: CREATININE FINGERSTICK < 0.9 mg/dL (0.55-1.02); EGFR FINGERSTICK > 60.0000 mL/min (>60)
== END 2021-10-11 23:59 | disposition home or self-care (01) ==
LOC: CT 08:00
PROVIDERS: PCP Internal Medicine; Referring Provider Internal Medicine Hematology & Oncology; Visit Provider Internal Medicine Hematology & Oncology
DX: C54.1 Malignant neoplasm of endometrium (principal); Z51.81 Encounter for therapeutic drug level monitoring; Z79.899 Other long term (current) drug therapy
CPT/HCPCS: 36591; 71260; 74177; 85025; 86304; Q9967; A4216

== ENCOUNTER 2021-11-09 16:15 | Emergency (ER) | payer MEDICARE, OTHER, SELFPAY ==
[2021-11-09 16:15] VITALS: BP 137/81; PULSE 88; RESP 16; TEMP 36.6; O2SAT 98; BMI 25.0
[2021-11-09 16:26] VITALS: PULSE 89; RESP 16; O2SAT 98
--- NOTE | 2021-11-09 16:44 | EX.ED.DYSGE1 ---
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 Patient started having itching under her underarms bilaterally today and then throughout the day has spread to diffuse hives. She states that she is currently staying at her daughter's house which she stated before and is giving the dog its canine lupus medications. She was not wearing gloves last night and the dog Spitting the medicine out so she had to keep pushing it back in. The medications include mycophenolate, cyclosporine and pentoxifylline. Patient know she gave the dog the medicines normally on Monday without any issue. Patient denies any difficulty breathing, wheezing, GI upset or any other complaints at this time. Did not take Benadryl because she has an adverse reaction to it. [facility] Medical History Arthritis Cancer Cancer of endometrium Cardiology follow-up encounter Hemorrhoids History of fracture of ankle Hx of echocardiogram Non-smoker Osteoarthritis Osteopenia Port-A-Cath in place Post-menopausal bleeding Regional lymph node metastasis present Wears glasses Home Medications cholecalciferol (vitamin D3) 25 mcg (1,000 unit) capsule 25 mcg PO DAILY 06/19/20 [History Last Taken Unknown] multivitamin 1 tablet PO DAILY 06/19/20 [History Last Taken Unknown] Hydrocortisone 2.5%/lidocaine 5% suppository (cmpd) #30 ea 01/05/21 [Rx Last Taken Unknown] B-complex with vitamin C 1 tab PO DAILY 01/07/21 [History Last Taken Unknown] ascorbic acid (vitamin C) 500 mg tablet (Vitamin C) 500 mg PO DAILY 01/07/21 [History Last Taken Unknown] inulin 2 gram chewable tablet (Fiber Gummies) 2 g PO DAILY 04/01/21 [History Last Taken Unknown] cetirizine 10 mg capsule (Zyrtec) 10 mg PO DAILY #7 caps 11/09/21 [Rx Last Taken Unknown] epinephrine 0.3 mg/0.3 mL injection, auto-injector 0.3 mg (0.3 mL) IM Q10M PRN anaphylaxis #2 ea 11/09/21 [Rx Last Taken Unknown] prednisone 20 mg tablet 40 mg PO DAILY #8 tabs 11/09/21 [Rx Last Taken Unknown] Allergy/AdvReac Type Severity Reaction Status Date / Time carboplatin Allergy Severe Rash Verified 11/09/21 16:17 hyaluronidase Allergy Severe Rash Verified 11/09/21 16:17 [From Herceptin Hylecta] paclitaxel [From Taxol] Allergy Severe Rash Verified 11/09/21 16:17 trastuzumab-oysk Allergy Severe Rash Verified 11/09/21 16:17 [From Herceptin Hylecta] levofloxacin [From Levaquin] AdvReac Severe abdominal Verified 11/09/21 16:17 pain Family History Father Cancer lung Sister Depression Thyroid disorder Hypertension Skin cancer Diabetes Grandmother Osteoporosis Mother Hypertension Skin cancer Aunt Cancer cervical cancer Other Arthritis Surgical History History of ankle surgery History of colonoscopy (2003) History of knee surgery History of sinus surgery Hx of total hysterectomy S/P hemorrhoidectomy Social History Smoking Status: Never smoker second hand exposure: No alcohol intake: never caffeine: Yes what type of physical activity do you participate in: walking frequency: 3-4 times per week seatbelt use: always do you feel safe at home: Yes additional social history: [employer] Derm ROS ROS ED Constitutional Constitutional ED: Denies chills or fever(s) Eyes Eyes: Denies change in vision or diplopia ENT ENT ED: Denies rhinorrhea or sore throat Cardiovascular Cardiovascular: Denies chest pain Respiratory/Chest Respiratory/Chest: Denies cough or dyspnea Gastrointestinal Gastrointestinal: Denies abdominal pain, diarrhea, nausea or vomiting Genitourinary Genitourinary ED: Denies dysuria or hematuria Musculoskeletal Musculoskeletal: Denies arthralgias or myalgias Integumentary Reports rash Neurologic Neurologic: Denies headache(s) or weakness Psychiatric Psychiatric: Denies anxiety EXAM Physical Exam Const Vital Signs: 11/09/21 16:15 11/09/21 16:26 Temperature 97.8 F Temperature Source Temporal Pulse Rate 88 89 Respiratory Rate 16 16 Blood Pressure 137/81 H Blood Pressure Mean 99 Pulse Ox 98 98 Oxygen Delivery Method Room Air Room Air Positive well nourished and well developed General Appearance ED: well developed HEENT Reports moist mucous membranes HEENT Narrative: No oral pharyngeal swelling. Normal uvula. Normal phonation. No lesion or wounds noted in the mouth. Negative for trauma Eyes PERRL and EOMs intact bilaterally Eyes Narrative: No conjunctival injection appreciated Neck no lymphadenopathy and supple Neck Narrative: Normal range of motion Chest Wall inspection of chest normal Resp normal respiratory effort and clear to auscultation bilaterally Auscultation: Negative for wheezes or diminished lung sounds Cardio regular rate, regular rhythm and no murmurs GI normal to inspection, nondistended, normoactive bowel sounds and non-tender Extremity normal to inspection General Extremety ED: Negative for edema or tenderness General Extremity: Negative for edema Neuro oriented x3 Neuro Narrative: No focal deficits appreciated Psych mental status grossly normal Skin Skin Narrative: Diffuse scattered urticaria present MDM MDM MDM Narrative Medical decision making narrative: Patient evaluated for 1 day of rash. Physical exam is consistent with urticaria. Physical exam is not consistent with acute anaphylaxis. Patient does not have any mucosal membrane involvement or involvement of the palms of her hands and have a low suspicion for Miguel Raciel syndrome or erythema multiforme at this time. It is possible that the hives came from one of the dog medications that she was transdermally exposed to yesterday. Patient denies any other new environmental exposures, medications or supplements. Denies any new foods. Patient declines Benadryl because it makes her very agitated. She is given Claritin which she has tolerated in the past and started on a burst of prednisone. Should be given a prescription for an EpiPen. She is counseled how to use it. She verbalizes agreement understand this plan. Discharged home in stable condition. Discharge Plan Triage Chief Complaint: Allergic Reaction ED Provider: Farhana Lozano Dx/Rx/DC Orders Clinical Impression: Urticaria, Allergic reaction Instructions: ED Hives (Adult), ED Using an Injection Pen Prescriptions: New epinephrine 0.3 mg/0.3 mL auto-injector 0.3 mg IM Q10M PRN (Reason: anaphylaxis) Qty: 2 0RF Rx Instructions: for 2 doses prednisone 20 mg tablet 40 mg PO DAILY Qty: 8 0RF Zyrtec 10 mg capsule 10 mg PO DAILY Qty: 7 0RF No Action multivitamin Tablet 1 tablet PO DAILY cholecalciferol (vitamin D3) 25 mcg (1,000 unit) capsule 25 mcg PO DAILY Fiber Gummies 2 gram tablet,chewable 2 g PO DAILY (DME) Hydrocortisone 2.5%/lidocaine 5% suppository (cmpd) Suppository See Rx Instructions .ROUTE .MEDSUPPLY Qty: 30 1RF Rx Instructions: As directed ascorbic acid (vitamin C) [Vitamin C] 500 mg Tablet 500 mg PO DAILY B-complex with vitamin C [Vitamin B Complex-8] Tablet 1 tab PO DAILY Primary Care Provider: Jose L Wiseman Referrals: Jose L Wiseman MD [Primary Care Provider] - Disposition Disposition: Home, Self Care
[2021-11-09] MEDS: predniSONE 20 MG Tablet 60 MG PO (16:57)
[2021-11-09] MEDS: Loratadine 10 MG Tablet PO (16:57)
--- NOTE | 2021-11-09 17:51 | ED.RN ---
PT WAS BROUGHT BACK UP RAMP TO ED BY FAMILY DUE TO NEAR SYNCOPAL EPISODE IN CAR. PT PLACED BACK IN A ROOM AND THE ORIGINAL ED PHYSICIAN DR. CUEVAS WAS NOTIFIED OF PTS RETURN
[2021-11-09 18:16] VITALS: BP 111/66; PULSE 75; RESP 16; O2SAT 100
--- NOTE | 2021-11-09 18:16 | NURSING ---
pt reports that feeling perfectly fine now. denies any light headedness when sat at edge of bed. vitals signs wnl now. family comfortable taking pt home. reported that i think that much prednisone was too much dc'd out with family and refused wc with steady gait obs
== END 2021-11-09 17:09 | disposition home or self-care (01) ==
LOC: ED 17:05
PROVIDERS: Emergency Provider Emergency Medicine; PCP Internal Medicine; Visit Provider Emergency Medicine
DX: L50.0 Allergic urticaria (principal)
CPT/HCPCS: 99285; A4216

== ENCOUNTER → 2022-01-03 | Outpatient (CLI) | payer MEDICARE, OTHER, SELFPAY ==
--- NOTE | 2022-01-03 09:15 | US_ITS ---
STUDY: ULTRASOUND BREAST - RIGHT REASON FOR EXAM: Female, 71 years old. Six-month follow-up examination. TECHNIQUE: Axial and longitudinal images of the RIGHT breast were performed with a high resolution ultrasound transducer. # OF IMAGES: 32 COMPARISON: Comparison is made with prior mammogram done earlier in the day as well as prior sonogram of the right breast dated 06/29/2021. FINDINGS: RIGHT Breast: The upper lateral quadrant of the right breast was examined with ultrasound. No sonographic abnormality is seen. US/Breast Limited Unilateral IMPRESSION: No sonographic abnormality is seen. ASSESSMENT CATEGORY: BIRADS Category 1: Negative. A letter regarding these results will be sent to the patient by the facility within 30 days. Electronically Signed: Russ Lion MD at 15:01 EDT ,
--- NOTE | 2022-01-03 09:15 | BI_ITS ---
MAMMOGRAPHY - UNILATERAL DIAGNOSTIC: RIGHT BREAST REASON FOR EXAM: Female, 71 years old. Six-month follow-up for right breast abnormality. PERTINENT HISTORY: Non-contributory. TECHNIQUE: Digital unilateral breast ara (3D mammographic acquisition) in the CC and MLO projections. 2-D mediolateral oblique (MLO) and craniocaudad (CC) views of both breasts were obtained. CAD: Full Field Digital Mammography with Computer Added Detection was performed. COMPARISON: Comparison is made with prior examination dated June 28 and 2021 and 06/24/2020. FINDINGS: Breast Composition: There are scattered areas of fibroglandular density. There are no dominant masses or suspicious calcifications. The previously seen focal area of architectural distortion in the upper lateral aspect of the right breast is not as prominent at this time. Correlation with ultrasound is recommended. No other significant abnormalities are identified. BI/DIAG MAMM W/CAD, UNILAT IMPRESSION: Stable unilateral diagnostic mammogram. Targeted correlation with ultrasound of the upper-outer quadrant of the right breast is recommended. ASSESSMENT CATEGORY: BIRADS Category 0: Incomplete. Need additional imaging evaluation. A letter regarding these results will be sent to the patient by the facility within 30 days. Approximately 10% of breast cancers are not detected by mammography. A normal mammogram should not delay biopsy of a clinically suspicious abnormality. Electronically Signed: Russ Lion MD at 10:07 EDT ,
== END | disposition home or self-care (01) ==
LOC: OPBI 09:14
PROVIDERS: PCP Internal Medicine; Visit Provider Internal Medicine Hematology & Oncology
DX: R92.8 Other abnormal and inconclusive findings on diagnostic imaging of breast (principal)
CPT/HCPCS: 76642; 77061; 77065; G0279

== ENCOUNTER → 2022-03-16 | Outpatient (CLI) | payer MEDICARE, OTHER, SELFPAY ==
--- NOTE | 2022-03-16 08:30 | PET_ITS ---
EXAMINATION: FDG PET/CT ? INDICATIONS: 71-year-old female with a history of endometrial carcinoma, presenting for restaging examination. ? COMPARISON EXAMINATION: None available ? INDEX LESION SIZE SUV INTERPRETATION Vaginal cuff 48.1 mm 8.0 Fulfills quantitative criteria for viable neoplasm ? Obturator and left common iliac lymphadenopathy 13.2 mm largest 4.7 max Fulfills quantitative criteria for viable neoplasm TECHNIQUE: Following the intravenous administration of 14.02 mCi of F-18 deoxyglucose via the left antecubital fossa, multiplanar image acquisitions of the neck, chest, abdomen and pelvis to the level of the midthigh, obtained at one-hour post radiopharmaceutical administration contemporaneously interpreted reveal: ? SERUM GLUCOSE LEVEL:? 118 mg/dL? HEIGHT:?? 64 inches WEIGHT:?? 146 pounds ? FINDINGS: ? HEAD/NECK:? There is no evidence of abnormal increased glucose metabolism in the pharyngeal mucosal space, parapharyngeal space, oropharynx, bilateral-lateral and anterior neck, hypopharynx and distribution of the larynx. ? The visualized portion of the cerebral cortical-subcortical structures demonstrate symmetric and preserved glucose metabolism. ? CHEST:? There is no quantitative scintigraphic evidence of abnormal increased glucose metabolism within the context of the bilateral hemithorax pulmonary parenchyma, right and left hemithorax at the pleural interface, mediastinal structures, and left-right thoracic perihilum. There is visualized radiopharmaceutical concentration noted in the left ventricular myocardium, consistent with the [place].? Descending thoracic aorta is demonstrated consistent with activated leukocytes associated with atherosclerotic plaque formation. ? CT of the chest demonstrates the following anatomic characteristics: There are no parenchymal densities-nodules defined in the right and left hemithorax pulmonary parenchyma with quantitatively significant increased FDG uptake. Atherosclerotic calcification is defined in the thoracic aorta without evidence of dilatation, aneurysm formation. Right and left axillary soft tissue densities, subcentimeter in presentation, with fatty hilus formation are nonglucose avid. ? ABDOMEN/PELVIS:? Enhanced FDG uptake is noted in the lower pelvis associated with the vaginal cuff, vaginal vault demonstrating a calculated standard uptake value of 8.0. The maximal axial diameter of the metabolic, morphologic abnormality is 48.1 mm. Facilitated uptake is noted in the region of the left obturator, left common iliac lymph nodes in a single nodular presentation. The calculated maximum standard uptake value is 4.7 with a maximal axial diameter of 13.2 mm AP.?? Normal physiologic distribution of the radiopharmaceutical is identified in the hepatic (3.3) and splenic parenchyma, both renal units, urinary bladder, and visualized intestinal tract.? Diffuse intestinal tract is identified in all four quadrants of the abdomen and pelvis. ? CT of the abdomen and pelvis is remarkable for the following: Photopenia is noted in the right lower abdomen consistent with hepatic cyst formation. ? SKELETAL:? There is no evidence of quantitatively significant enhanced glucose metabolism on meticulous inspection of the appendicular and axial skeletal structures. ? Degenerative changes defined in the thoracic and lumbar spine demonstrate no evidence of increased glucose metabolism. There are no sclerotic, mixed sclerotic-lytic, or primarily lytic changes defined in the axial skeletal structures with evidence of increased FDG uptake. ? PET/PET/CT Tumor Base -Thigh Subs IMPRESSION: 1. ABNORMAL EXAMINATION INDICATIVE OF MALIGNANT-VIABLE NEOPLASM. 2. Increased radiopharmaceutical concentration defined in the vaginal cuff fulfills quantitative criteria for viable neoplasm. 3. Enhanced tracer uptake noted in the region of the left obturator as well as common iliac lymph node distributions fulfill quantitative criteria for viable neoplasm. ? Electronic Signature Sunday Granados D.O. Accurate Quantification of SUVs for this report are calculated using the exclusive [employer]. ([place]. Patent No. [phone] B2 [phone] [place] patent [phone]). Standardization and correction of the FDG SUV metric via [employer]UQUAN technology allow for vendor non-specific objective quantitative examination comparison and optimization of the sensitivity and specificity of the FDG PET-CT examination. Electronically Signed: Sunday Granados, at 23:16 EST ,
== END | disposition home or self-care (01) ==
LOC: ONC 08:12
PROVIDERS: PCP Internal Medicine; Referring Provider Obstetrics & Gynecology Gynecologic Oncology; Visit Provider Obstetrics & Gynecology Gynecologic Oncology
DX: C54.1 Malignant neoplasm of endometrium (principal)
CPT/HCPCS: 78815; A9552

== ENCOUNTER → 2022-03-23 | Outpatient (CLI) | payer MEDICARE, OTHER, SELFPAY ==
--- NOTE | 2022-03-23 13:39 | ECHOD_ITS ---
Version 2 Reason For Study: High risk meds Procedure This was a 2D Doppler, Color Flow transthoracic echocardiogram. Myocardial strain analysis was performed in this exam to aid in the assessment of cardiac function. The exam was of adequate technical quality. Exam performed in department. Left Ventricle Normal LV size. Left ventricular systolic function is normal. The estimated ejection fraction is 65 %. The global longitudinal strain = -20 % (normal). Diastolic function is indeterminate. No regional wall motion abnormalities noted. Right Ventricle Normal RV size. Normal systolic function. Atria Normal left atrium. Normal right atrium. No doppler evidence for ASD. Mitral Valve There is mild mitral annular calcification. Extension of the mitral annular calcification onto the base of the posterior mitral valve leaflet. Mild-Moderate (1-2+) mitral valve insufficiency. Tricuspid Valve Normal tricuspid valve. Mild to moderate (1-2+) eccentric tricuspid valve insufficiency. Right ventricular systolic pressure estimated to be 21 mmHg. Aortic Valve Trisinus/trileaflet aortic valve. Normal aortic valve. Mild (1+) aortic valve insufficiency. Pulmonic Valve Normal pulmonic valve. Great Vessels Normal sized aortic root. Pericardium/Pleural No pericardial effusion. MMode/2D Measurements & Calculations LVIDd: 3.8 cm IVSd: 1.1 cm Ao root diam: 3.4 cm LVIDs: 1.8 cm LVPWd: 0.96 cm RVDd: 2.8 cm FS: 53.5 % LAV(MOD-bp): 40.7 ml LVAd ap4: 24.5 cm2 LVAd ap2: 22.7 cm2 LAV(MOD-bp) Indexed: 23.9 ml/m2 LVLd ap4: 7.4 cm LVLd ap2: 7.2 cm LAV(MOD-sp2): 41.1 ml EDV(MOD-sp4): 65.8 ml EDV(MOD-sp2): 60.2 ml LAV(MOD-sp4): 31.4 ml EDV(sp4-el): 68.7 ml EDV(sp2-el): 61.0 ml LVAs ap4: 13.2 cm2 LVAs ap2: 11.9 cm2 LVLs ap4: 6.0 cm LVLs ap2: 6.3 cm ESV(MOD-sp4): 24.3 ml ESV(MOD-sp2): 20.2 ml ESV(sp4-el): 24.6 ml ESV(sp2-el): 19.3 ml EF(MOD-sp4): 63.1 % EF(MOD-sp2): 66.5 % EF(sp4-el): 64.1 % SV(MOD-sp4): 41.5 ml SV(MOD-sp2): 40.1 ml SV(sp4-el): 44.0 ml LA dimension(2D): 3.4 cm LA A4 area: 12.2 cm2 RA A4 area: 9.9 cm2 Time Measurements MV dec time: 0.26 sec Doppler Measurements & Calculations MV E max rian: 54.5 cm/sec Lat Peak E' Rian: 6.5 cm/sec Med Peak E' Rian: 3.5 cm/sec MV A max rian: 72.8 cm/sec E/E' lat: 8.4 E/E' med: 15.4 MV E/A: 0.75 MV dec slope: 215.7 cm/sec2 Ao V2 max: 116.8 cm/sec AI max rian: 442.7 cm/sec Ao max P.5 mmHg AI max P.7 mmHg AI dec slope: 273.1 cm/sec2 AI P1/2t: 474.7 msec LV V1 max: 105.5 cm/sec PA V2 max: 72.5 cm/sec TR max rian: 211.6 cm/sec LV V1 max P.4 mmHg TR max P.1 mmHg ECHO/ONC Echo Complete Interpretation Summary Left ventricular systolic function is normal. The estimated ejection fraction is 65 %. The global longitudinal strain = -20 % (normal). There is mild mitral annular calcification. Extension of the mitral annular calcification onto the base of the posterior mi tral valve leaflet. Mild-Moderate (1-2+) mitral valve insufficiency. Mild to moderate (1-2+) eccentric tricuspid valve insufficiency. Mild (1+) aortic valve insufficiency. Right ventricular systolic pressure estimated to be 21 mmHg. Diastolic function is indeterminate. Comment: 2D echocardiographic images demonstrate an echolucency appearing jane tible with an hepatic cyst. Consider further radiologic evaluation as deemed appropriate. Ordering Physician: Denis Richey Referring Physician: Jose L Wiseman Performed By: Ursula Esteban RDCS
== END | disposition home or self-care (01) ==
LOC: CVS 13:37
PROVIDERS: PCP Internal Medicine; Visit Provider Obstetrics & Gynecology Gynecologic Oncology
DX: Z51.11 Encounter for antineoplastic chemotherapy (principal); C54.1 Malignant neoplasm of endometrium; Z79.899 Other long term (current) drug therapy
CPT/HCPCS: 93306; 93356

== ENCOUNTER → 2022-04-01 | Outpatient (CLI) | payer MEDICARE, OTHER, SELFPAY ==
[2022-04-01 11:28] LABS: Absolute Lymphocyte Count 1.33 X10^3/uL (0.83-4.51); Absolute Neutrophil Count 2.7 X10^3/uL (2.0-7.7); Basophil# 0.03 X10^3/uL; Basophil% 0.7 % (0-1); Eosinophil# 0.11 X10^3/uL; Eosinophils% 2.4 % (0-5); Hematocrit 37.6 % (37-47); Hemoglobin 12.4 g/dL (12.0-15.0); Lymphocyte # 1.33 X10^3/ul (0.83-4.51); Mean Corpuscular Hgb 32.7 pg (27.0-32.0); Mean Corpuscular Volume 99.2 fL (81-99); Mean Platelet Vol. 10.6 fl (6.2-12.0); Monocyte# 0.42 X10^3/uL; Monocyte% 9.2 % (0-10); NRBC Flagged by Analyzer 0 % (0-5); Neutrophil # 2.69 X10^3/uL (2.7-7.7); Neutrophil % 58.5 % (47-70); Platelet Count 234 K/mm3 (150-450); RBC Distribution Width CV 12.2 % (11.6-14.6); RBC Distribution Width SD 44.7 fl (35.1-43.9); Red Blood Count 3.79 M/mm3 (4.2-5.4); White Blood Count 4.6 K/mm3 (4.4-11.0)
[2022-04-01 11:42] LABS: ALB/GLOB Ratio 1.1 RATIO (0.9-2.4); AST(SGOT) 19 U/L (15-37); Alanine Aminotransfer ALT/SGPT 22 U/L (13-56); Albumin, Serum 3.8 g/dL (3.2-5.0); Alkaline Phosphatase 84 U/L (45-117); Anion Gap 2 (5-15); BUN 18 mg/dL (7-18); BUN/Creat Ratio 23.4 RATIO (10-20); Calcium,Total 8.9 mg/dL (8.5-10.1); Chloride 108 mmol/L (98-107); Creatinine, Serum 0.77 mg/dL (0.55-1.02); EST Glomerular Filtration Rate 79 mL/min (>60); Est Glom Filt Rate - Afr Amer 96 mL/min (>60); Globulin 3.4 g/dL (2.2-4.2); Glucose 94 mg/dL (74-106); Potassium 3.9 mmol/L (3.5-5.1); Protein, Total 7.2 g/dL (6.4-8.2); Sodium Level 141 mmol/L (136-145)
[2022-04-01 19:19] LABS: Xtra Tube EP Lab EXTRA TUBE
[2022-04-02 10:24] LABS: Cancer Antigen 125 36.3 U/mL (0.0-38.1)
== END | disposition home or self-care (01) ==
LOC: MEDOUTP 11:01
PROVIDERS: Internal Medicine Hematology & Oncology; PCP Internal Medicine; Referring Provider Obstetrics & Gynecology Gynecologic Oncology; Visit Provider Obstetrics & Gynecology Gynecologic Oncology
DX: C54.1 Malignant neoplasm of endometrium (principal); C77.9 Secondary and unspecified malignant neoplasm of lymph node, unspecified
CPT/HCPCS: 36415; 80053; 85025; 86304

== ENCOUNTER 2022-05-19 13:09 | Outpatient (RCR) | payer MEDICARE, OTHER, SELFPAY ==
[2022-04-28 13:38] LABS: Absolute Neutrophil Count 2.8 X10^3/uL (2.0-7.7); Basophil# 0.03 X10^3/uL; Basophil% 0.6 % (0-1); Eosinophil# 0.02 X10^3/uL; Eosinophils% 0.4 % (0-5); Hematocrit 33.1 % (37-47); Lymphocyte % 30.3 % (19-41); Mean Corp Hgb Conc 33.2 g/dL (32-36); Mean Corpuscular Hgb 32.5 pg (27.0-32.0); Mean Corpuscular Volume 97.9 fL (81-99); Mean Platelet Vol. 9.5 fl (6.2-12.0); Monocyte# 0.35 X10^3/uL; Monocyte% 7.6 % (0-10); NRBC Flagged by Analyzer 0 % (0-5); Neutrophil # 2.81 X10^3/uL (2.7-7.7); Neutrophil % 60.9 % (47-70); Platelet Count 246 K/mm3 (150-450); RBC Distribution Width CV 13.1 % (11.6-14.6); RBC Distribution Width SD 46.5 fl (35.1-43.9); Red Blood Count 3.38 M/mm3 (4.2-5.4); White Blood Count 4.6 K/mm3 (4.4-11.0)
[2022-04-28 13:53] LABS: ALB/GLOB Ratio 1.1 RATIO (0.9-2.4); AST(SGOT) 32 U/L (15-37); Alanine Aminotransfer ALT/SGPT 36 U/L (13-56); Albumin, Serum 3.9 g/dL (3.2-5.0); Alkaline Phosphatase 87 U/L (45-117); Anion Gap 6 (5-15); BUN 19 mg/dL (7-18); BUN/Creat Ratio 25.6 RATIO (10-20); Calcium,Total 8.9 mg/dL (8.5-10.1); Chloride 105 mmol/L (98-107); Creatinine, Serum 0.74 mg/dL (0.55-1.02); EST Glomerular Filtration Rate 82 mL/min (>60); Est Glom Filt Rate - Afr Amer 100 mL/min (>60); Globulin 3.7 g/dL (2.2-4.2); Glucose 97 mg/dL (74-106); Potassium 3.7 mmol/L (3.5-5.1); Protein, Total 7.6 g/dL (6.4-8.2); Sodium Level 141 mmol/L (136-145)
[2022-04-30 14:51] LABS: Cancer Antigen 125 21.5 U/mL (0.0-38.1)
[2022-05-19 13:32] LABS: Absolute Lymphocyte Count 1.23 X10^3/uL (0.83-4.51); Absolute Neutrophil Count 1.3 X10^3/uL (2.0-7.7); Basophil# 0.01 X10^3/uL; Basophil% 0.3 % (0-1); Eosinophil# 0.02 X10^3/uL; Eosinophils% 0.7 % (0-5); Hematocrit 31.1 % (37-47); Hemoglobin 10.2 g/dL (12.0-15.0); Lymphocyte # 1.23 X10^3/ul (0.83-4.51); Lymphocyte % 42.6 % (19-41); Mean Corp Hgb Conc 32.8 g/dL (32-36); Mean Corpuscular Hgb 33.2 pg (27.0-32.0); Mean Corpuscular Volume 101.3 fL (81-99); Mean Platelet Vol. 9.9 fl (6.2-12.0); Monocyte# 0.28 X10^3/uL; Monocyte% 9.7 % (0-10); NRBC Flagged by Analyzer 0 % (0-5); Neutrophil # 1.34 X10^3/uL (2.7-7.7); Neutrophil % 46.4 % (47-70); Platelet Count 154 K/mm3 (150-450); RBC Distribution Width CV 14.4 % (11.6-14.6); RBC Distribution Width SD 51.5 fl (35.1-43.9); Red Blood Count 3.07 M/mm3 (4.2-5.4); White Blood Count 2.9 K/mm3 (4.4-11.0)
[2022-05-19 13:46] LABS: ALB/GLOB Ratio 1.1 RATIO (0.9-2.4); AST(SGOT) 24 U/L (15-37); Alanine Aminotransfer ALT/SGPT 25 U/L (13-56); Albumin, Serum 3.9 g/dL (3.2-5.0); Alkaline Phosphatase 94 U/L (45-117); Anion Gap 6 (5-15); BUN 19 mg/dL (7-18); BUN/Creat Ratio 20.8 RATIO (10-20); Calcium,Total 9.1 mg/dL (8.5-10.1); Chloride 104 mmol/L (98-107); Creatinine, Serum 0.91 mg/dL (0.55-1.02); EST Glomerular Filtration Rate 65 mL/min (>60); Est Glom Filt Rate - Afr Amer 78 mL/min (>60); Globulin 3.6 g/dL (2.2-4.2); Glucose 102 mg/dL (74-106); Potassium 3.8 mmol/L (3.5-5.1); Protein, Total 7.5 g/dL (6.4-8.2); Sodium Level 140 mmol/L (136-145)
[2022-05-22 09:20] LABS: Cancer Antigen 125 15.3 U/mL (0.0-38.1)
== END 2022-05-24 23:59 ==
LOC: PAVLAB 13:09
PROVIDERS: PCP Internal Medicine; Referring Provider Obstetrics & Gynecology Gynecologic Oncology; Visit Provider Obstetrics & Gynecology Gynecologic Oncology
DX: C54.1 Malignant neoplasm of endometrium (principal)
CPT/HCPCS: 36415; 80053; 85025; 86304

== ENCOUNTER 2022-06-16 11:19 | Outpatient (RCR) | payer MEDICARE, OTHER, SELFPAY ==
[2022-06-09 13:09] LABS: Absolute Lymphocyte Count 1.03 X10^3/uL (0.83-4.51); Basophil# 0.01 X10^3/uL; Basophil% 0.4 % (0-1); Eosinophil# 0.01 X10^3/uL; Eosinophils% 0.4 % (0-5); Hematocrit 29.1 % (37-47); Hemoglobin 10.1 g/dL (12.0-15.0); Lymphocyte # 1.03 X10^3/ul (0.83-4.51); Lymphocyte % 45.2 % (19-41); Mean Corp Hgb Conc 34.7 g/dL (32-36); Mean Corpuscular Hgb 35.8 pg (27.0-32.0); Mean Corpuscular Volume 103.2 fL (81-99); Mean Platelet Vol. 9.1 fl (6.2-12.0); Monocyte# 0.25 X10^3/uL; NRBC Flagged by Analyzer 0 % (0-5); Neutrophil # 0.98 X10^3/uL (2.7-7.7); POSITIVE DIFFERENTIAL YES; Platelet Count 118 K/mm3 (150-450); RBC Distribution Width CV 15.9 % (11.6-14.6); RBC Distribution Width SD 58.4 fl (35.1-43.9); Red Blood Count 2.82 M/mm3 (4.2-5.4); White Blood Count 2.3 K/mm3 (4.4-11.0)
[2022-06-09 13:10] LABS: Differential Indicated SCAN CRITERIA MET
[2022-06-09 13:25] LABS: ALB/GLOB Ratio 1.1 RATIO (0.9-2.4); AST(SGOT) 22 U/L (15-37); Alanine Aminotransfer ALT/SGPT 26 U/L (13-56); Albumin, Serum 3.7 g/dL (3.2-5.0); Alkaline Phosphatase 97 U/L (45-117); Anion Gap 7 (5-15); BUN 13 mg/dL (7-18); BUN/Creat Ratio 16.1 RATIO (10-20); Calcium,Total 8.7 mg/dL (8.5-10.1); Chloride 106 mmol/L (98-107); Creatinine, Serum 0.81 mg/dL (0.55-1.02); EST Glomerular Filtration Rate 75 mL/min (>60); Est Glom Filt Rate - Afr Amer 91 mL/min (>60); Globulin 3.5 g/dL (2.2-4.2); Glucose 103 mg/dL (74-106); Potassium 3.9 mmol/L (3.5-5.1); Protein, Total 7.2 g/dL (6.4-8.2); Sodium Level 141 mmol/L (136-145)
[2022-06-09 13:31] LABS: Differential Comment SCANNED
[2022-06-11 12:57] LABS: Cancer Antigen 125 13.3 U/mL (0.0-38.1)
[2022-06-16 11:39] LABS: Absolute Neutrophil Count 1.5 X10^3/uL (2.0-7.7); Basophil# 0.01 X10^3/uL; Basophil% 0.3 % (0-1); Eosinophil# 0.02 X10^3/uL; Eosinophils% 0.7 % (0-5); Hematocrit 29.8 % (37-47); Hemoglobin 9.9 g/dL (12.0-15.0); Lymphocyte % 39.5 % (19-41); Mean Corp Hgb Conc 33.2 g/dL (32-36); Mean Corpuscular Volume 102.4 fL (81-99); Mean Platelet Vol. 10.1 fl (6.2-12.0); Monocyte# 0.28 X10^3/uL; Monocyte% 9.2 % (0-10); NRBC Flagged by Analyzer 0 % (0-5); Neutrophil # 1.53 X10^3/uL (2.7-7.7); Neutrophil % 50.3 % (47-70); Platelet Count 153 K/mm3 (150-450); RBC Distribution Width CV 16.1 % (11.6-14.6); Red Blood Count 2.91 M/mm3 (4.2-5.4)
[2022-06-16 11:56] LABS: AST(SGOT) 20 U/L (15-37); Alanine Aminotransfer ALT/SGPT 22 U/L (13-56); Albumin, Serum 3.7 g/dL (3.2-5.0); Alkaline Phosphatase 92 U/L (45-117); Anion Gap 6 (5-15); BUN 19 mg/dL (7-18); BUN/Creat Ratio 24.8 RATIO (10-20); Calcium,Total 8.6 mg/dL (8.5-10.1); Chloride 107 mmol/L (98-107); Creatinine, Serum 0.76 mg/dL (0.55-1.02); EST Glomerular Filtration Rate 80 mL/min (>60); Est Glom Filt Rate - Afr Amer 96 mL/min (>60); Globulin 3.6 g/dL (2.2-4.2); Glucose 107 mg/dL (74-106); Potassium 3.7 mmol/L (3.5-5.1); Protein, Total 7.3 g/dL (6.4-8.2); Sodium Level 140 mmol/L (136-145)
== END 2022-06-24 23:59 ==
LOC: PAVLAB 11:19
PROVIDERS: PCP Internal Medicine; Referring Provider Obstetrics & Gynecology Gynecologic Oncology; Visit Provider Obstetrics & Gynecology Gynecologic Oncology
DX: C54.1 Malignant neoplasm of endometrium (principal)
CPT/HCPCS: 36415; 80053; 85025; 86304

== ENCOUNTER → 2022-06-30 | Outpatient (CLI) | payer MEDICARE, OTHER, SELFPAY ==
--- NOTE | 2022-06-30 10:55 | ECHODONC_ITS ---
Reason For Study: Endometrial Cancer Procedure This was a 2D Doppler, Color Flow transthoracic echocardiogram. Myocardial strain analysis was performed in this exam to aid in the assessment of cardiac function. Left Ventricle Normal size and thickness. The global longitudinal strain = -20.8 % (normal). The left ventricular ejection fraction is 65 %. Normal diastololic function. Right Ventricle Normal right ventricle. Atria The left and right atria are normal. Mitral Valve Mild-Moderate (1-2+) mitral valve insufficiency. Tricuspid Valve Mild tricuspid valve insufficiency. Normal pulmonary artery pressure. Aortic Valve Moderate (2+) aortic valve insufficiency. Pulmonic Valve The pulmonic valve is not well visualized. Great Vessels Normal sized aortic root. Pericardium/Pleural No pericardial effusion. MMode/2D Measurements & Calculations LVIDd: 4.2 cm IVSd: 1.1 cm Ao root diam: 3.3 cm LVIDs: 2.9 cm LVPWd: 1.0 cm LA dimension: 3.3 cm RVDd: 3.2 cm FS: 30.2 % LAV(MOD-sp2): 73.9 ml Time Measurements MV dec time: 0.18 sec Doppler Measurements & Calculations MV E max rian: 69.2 cm/sec Lat Peak E' Rian: 9.7 cm/sec Med Peak E' Rian: 7.3 cm/sec MV A max rian: 95.1 cm/sec E/E' lat: 7.1 E/E' med: 9.4 MV E/A: 0.73 MV V2 max: 103.9 cm/sec MV P1/2t max rian: 77.8 cm/sec Ao V2 max: 130.9 cm/sec MV max P.3 mmHg MV P1/2t: 62.0 msec Ao max P.9 mmHg MV V2 mean: 58.3 cm/sec Ao V2 mean: 93.2 cm/sec MV mean P.6 mmHg MV dec slope: 367.2 cm/sec2 Ao mean P.9 mmHg MV V2 VTI: 20.6 cm MVA(P1/2t): 3.5 cm2 Ao V2 VTI: 28.0 cm AV (velocity ratio): 0.90 AI max rian: 412.7 cm/sec LV V1 max: 120.0 cm/sec MR max rian: 571.6 cm/sec AI max P.2 mmHg LV V1 max P.8 mmHg MR max P.7 mmHg AI dec slope: 396.7 cm/sec2 LV V1 mean P.1 mmHg AI P1/2t: 304.7 msec LV V1 mean: 82.3 cm/sec LV V1 VTI: 25.1 cm PA V2 max: 96.4 cm/sec PI end-d rian: 103.9 cm/sec TR max rian: 235.0 cm/sec TR max P.1 mmHg ECHO/ONC Echo Complete Interpretation Summary The global longitudinal strain = -20.8 % (normal). The left ventricular ejection fraction is 65 %. Mild tricuspid valve insufficiency. Moderate (2+) aortic valve insufficiency. Mild-Moderate (1-2+) mitral valve insufficiency. Ordering Physician: RODNEY DREW Referring Physician: Jose L Wiseman Performed By: Alberto Yip RCS
== END | disposition home or self-care (01) ==
LOC: CVS 10:53
PROVIDERS: PCP Internal Medicine
DX: Z51.11 Encounter for antineoplastic chemotherapy (principal); C54.1 Malignant neoplasm of endometrium; I08.0 Rheumatic disorders of both mitral and aortic valves
CPT/HCPCS: 93306; 93356

== ENCOUNTER 2022-07-01 11:56 | Observation (INO) | payer MEDICARE, OTHER, SELFPAY ==
[2022-07-01] VITALS (15 sets, daily range): BP systolic 135–181; BP diastolic 69–83; PULSE 73–98; RESP 12–20; TEMP 36.7–37.2; O2SAT 96–100; BMI 26.6; BMI 25.7
--- NOTE | 2022-07-01 12:24 | EDS_ITS ---
HPI History of Present Illness Chief Complaint: Fever Detail of Chief Complaint: Fever Informant: patient Narrative Narrative: Patient presents to the emergency department complaint of a fever that was noticed today. Patient started having some body aches yesterday. She today noticed some swollen glands in her throat although she denies a sore throat. Patient has some mild shortness of breath but no cough. Checked her oral temperature at home and it was 100.7 today. Patient is being treated for uterine cancer and her last chemotherapy was 2 weeks ago. Patient denies sick contacts. She denies vomiting or diarrhea. She denies rashes. [facility] Medical History Arthritis Cancer Cancer of endometrium Cardiology follow-up encounter Hemorrhoids History of fracture of ankle Hx of echocardiogram Non-smoker Osteoarthritis Osteopenia Port-A-Cath in place Post-menopausal bleeding Regional lymph node metastasis present Wears glasses Home Medications cholecalciferol (vitamin D3) 25 mcg (1,000 unit) capsule 25 mcg PO DAILY 06/19/20 [History Last Taken Unknown] multivitamin 1 tablet PO DAILY 06/19/20 [History Last Taken Unknown] Hydrocortisone 2.5%/lidocaine 5% suppository (cmpd) #30 ea 01/05/21 [Rx Last Taken Unknown] B-complex with vitamin C 1 tab PO DAILY 01/07/21 [History Last Taken Unknown] ascorbic acid (vitamin C) 500 mg tablet (Vitamin C) 500 mg PO DAILY 01/07/21 [History Last Taken Unknown] inulin 2 gram chewable tablet (Fiber Gummies) 2 g PO DAILY 04/01/21 [History Last Taken Unknown] cetirizine 10 mg capsule (Zyrtec) 10 mg PO DAILY #7 caps 11/09/21 [Rx Last Taken Unknown] epinephrine 0.3 mg/0.3 mL injection, auto-injector 0.3 mg (0.3 mL) IM Q10M PRN anaphylaxis #2 ea 11/09/21 [Rx Last Taken Unknown] prednisone 20 mg tablet 40 mg PO DAILY #8 tabs 11/09/21 [Rx Last Taken Unknown] Allergy/AdvReac Type Severity Reaction Status Date / Time carboplatin Allergy Severe Rash Verified 07/01/22 12:05 hyaluronidase Allergy Severe Rash Verified 07/01/22 12:05 [From Herceptin Hylecta] paclitaxel [From Taxol] Allergy Severe Rash Verified 07/01/22 12:05 trastuzumab-oysk Allergy Severe Rash Verified 07/01/22 12:05 [From Herceptin Hylecta] levofloxacin [From Levaquin] AdvReac Severe abdominal Verified 07/01/22 12:05 pain Family History Father Cancer lung Sister Depression Thyroid disorder Hypertension Skin cancer Diabetes Grandmother Osteoporosis Mother Hypertension Skin cancer Aunt Cancer cervical cancer Other Arthritis Surgical History History of ankle surgery History of colonoscopy (2003) History of knee surgery History of sinus surgery Hx of total hysterectomy S/P hemorrhoidectomy Social History Smoking Status: Never smoker second hand exposure: No alcohol intake: never caffeine: Yes what type of physical activity do you participate in: walking frequency: 3-4 times per week seatbelt use: always do you feel safe at home: Yes additional social history: [employer] [facility] ROS ROS ED Review of Systems ROS Unobtainable: other Constitutional Constitutional ED: Reports fever(s) and lethargy; Denies chills, sweats or weight loss Eyes Eyes: Denies blurry vision, change in vision or diplopia ENT ENT ED: Denies rhinorrhea or sore throat Cardiovascular Cardiovascular: Denies chest pain, orthopnea or racing heartbeat Respiratory/Chest Respiratory/Chest: Denies cough, dyspnea, dyspnea on exertion, orthopnea or sputum Gastrointestinal Gastrointestinal: Denies abdominal pain, diarrhea, nausea or vomiting Genitourinary Genitourinary ED: Denies dysuria, hematuria or urinary frequency Musculoskeletal Musculoskeletal: Reports myalgias; Denies arthralgias, back pain or neck pain Integumentary Denies abscess, Abrasions or rash Neurologic Neurologic: Denies headache(s) or weakness Psychiatric Psychiatric: Denies anxiety, depression or suicidal thoughts Endocrine Endocrinology: Denies polydipsia, polyphagia or polyuria Hematologic/Lymphatic Hematologic/Lymphatic: Denies easy bleeding, easy bruising or lymphadenopathy Allergic/Immunologic Allergic/Immunologic ED: Denies mouth swelling, tongue swelling or urticaria EXAM Physical Exam Const Vital Signs: 07/01/22 11:57 07/01/22 12:04 07/01/22 12:06 Temperature 98.4 F 98.5 F Temperature Source Oral Oral Pulse Rate 98 Respiratory Rate 20 H Respiratory Effort Short of Breath Respiratory Pattern Normal Blood Pressure 181/78 H Blood Pressure Mean 112 Pulse Ox 98 Oxygen Delivery Method Room Air 07/01/22 12:12 07/01/22 13:23 07/01/22 13:33 Temperature 98.5 F 98.3 F Temperature Source Oral Oral Pulse Rate 78 79 73 Respiratory Rate 17 18 13 Respiratory Effort Respiratory Pattern Blood Pressure 150/77 H 145/69 H 135/69 H Blood Pressure Mean 101 94 91 Pulse Ox 96 99 99 Oxygen Delivery Method Room Air Room Air Room Air 07/01/22 14:01 07/01/22 14:30 Temperature 98.3 F Temperature Source Oral Pulse Rate 76 78 Respiratory Rate 15 17 Respiratory Effort Respiratory Pattern Blood Pressure 149/74 H 158/79 H Blood Pressure Mean 99 105 Pulse Ox 100 98 Oxygen Delivery Method Room Air Room Air Positive well nourished and well developed General Appearance ED: well developed and NAD HEENT Reports TM's clear and moist mucous membranes normocephalic and atraumatic; Negative for trauma or tenderness Tympanic Membrane ED: Yes TM's clear Eyes PERRL and EOMs intact bilaterally General Eye ED: Negative for pale conjunctiva or scleral icterus Neck no lymphadenopathy, supple and no JVD Neck Narrative: Mild anterior adenopathy bilaterally. General: Negative for tenderness Chest Wall inspection of chest normal and palpation of chest normal Chest: Negative for tenderness Resp normal respiratory effort and clear to auscultation bilaterally Effort and Inspection: Negative for respiratory distress or pain with movement Auscultation: Negative for rhonchi, wheezes or diminished lung sounds Cardio regular rate, regular rhythm, S1 normal heart sound, S2 normal heart sound and no murmurs Peripheral Pulses: pulses 2+ throughout GI normal to inspection, nondistended, normoactive bowel sounds, soft to palpation, non-tender, non-distended and no masses Back/Spine no CVA tenderness and no thoracic nor lumbar tenderness Extremity normal to inspection General Extremety ED: Negative for edema General Extremity: Negative for edema Neuro oriented x3, CN's II-XII intact bilaterally, no sensory deficits noted and gait normal Sensorium / Orientation: awake, alert, oriented to person, oriented to place and oriented to time Motor Exam: strength 5/5 throughout and strength abnormal Psych mental status grossly normal Skin no rashes or lesions noted and no wounds MDM MDM MDM Narrative Medical decision making narrative: Patient with fever at home. Patient neutropenic due to chemotherapy. CBC with differential obtained showing a 1.9 with a hemoglobin of 8 and hematocrit of of 24.5. Platelets 100. Chemistries unremarkable. LFTs normal. D-dimer elevated 1.19 urinalysis was normal. Patient had a COVID and flu rapid test both were negative. Patient had a negative strep screen. CTA of the chest was negative for PE or dissection. At this time I do not have a clear source or etiology for her fever. Patient was empirically started on Zosyn. Case will be discussed with hospitalist evaluate patient for admission for neutropenic fever Lab Data Labs: Laboratory Results - last 24 hr 07/01/22 07/01/22 07/01/22 12:45 12:45 12:45 WBC 1.9 L RBC 2.33 L Hgb 8.0 L Hct 24.5 L MCV 105.2 H MCH 34.3 H MCHC 32.7 RDW Std Deviation 59.7 H RDW Coeff of [place] 15.8 H Plt Count 100 L MPV 10.3 Immature Gran % (Auto) 0.000 Neut % (Auto) 16.0 L Lymph % (Auto) 50.3 H [place] % (Auto) 33.2 H Eos % (Auto) 0.0 Baso % (Auto) 0.5 Absolute Neuts (auto) 0.3 L Absolute Lymphs (auto) 0.97 Nucleated RBC % 0 Differential Comment SCANNED D-Dimer Quant (PE/DVT) 1.19 H* Sodium 138 Potassium 3.8 Chloride 105 Carbon Dioxide 28.0 Anion Gap 5 BUN 12 Creatinine 0.76 Estim Creat Clear Calc 45.85 Est GFR (MDRD) Af Amer 97 Est GFR (MDRD) Non-Af 80 BUN/Creatinine Ratio 15.8 Glucose 97 Lactic Acid Calcium 8.4 L Total Bilirubin 0.30 AST 22 ALT 22 Alkaline Phosphatase 78 Total Protein 6.9 Albumin 3.4 Globulin 3.5 Albumin/Globulin Ratio 1.0 Urine Color Urine Clarity Urine pH Ur Specific [place] Urine Protein Urine Glucose (UA) Urine Ketones Urine Occult Blood Urine Nitrite Urine Bilirubin Urine Urobilinogen Ur Leukocyte Esterase Urine RBC Urine WBC Ur Squamous Epith Cells Urine Bacteria Urine Mucus 07/01/22 07/01/22 12:45 13:55 WBC RBC Hgb Hct MCV MCH MCHC RDW Std Deviation RDW Coeff of [place] Plt Count MPV Immature Gran % (Auto) Neut % (Auto) Lymph % (Auto) [place] % (Auto) Eos % (Auto) Baso % (Auto) Absolute Neuts (auto) Absolute Lymphs (auto) Nucleated RBC % Differential Comment D-Dimer Quant (PE/DVT) Sodium Potassium Chloride Carbon Dioxide Anion Gap BUN Creatinine Estim Creat Clear Calc Est GFR (MDRD) Af Amer Est GFR (MDRD) Non-Af BUN/Creatinine Ratio Glucose Lactic Acid 0.8 Calcium Total Bilirubin AST ALT Alkaline Phosphatase Total Protein Albumin Globulin Albumin/Globulin Ratio Urine Color Yellow Urine Clarity Clear Urine pH 8.0 Ur Specific [place] 1.010 Urine Protein Negative Urine Glucose (UA) Normal Urine Ketones Negative Urine Occult Blood Negative Urine Nitrite Negative Urine Bilirubin Negative Urine Urobilinogen Normal Ur Leukocyte Esterase Negative Urine RBC 0 SEEN Urine WBC 0 SEEN Ur Squamous Epith Cells 0 SEEN Urine Bacteria 0 SEEN Urine Mucus 0 SEEN Radiography Diagnostic Testing: Clinical Impression(s) from Imaging Studies Chest X-Ray 07/01/22 12:59 IMPRESSION: Hyperinflation. The lungs are clear. Electronically Signed: Russ Lion MD at 13:10 EDT , Chest CTA 07/01/22 13:47 IMPRESSION: Normal CTA chest examination, without a demonstrated pulmonary embolism or arterial dissection. Electronically Signed: Russ Lion MD at 14:33 EDT , 1 view chest x-ray obtained interpreted by myself as no evidence of infiltrate or pneumothorax or acute process. Radiology in agreement. Discharge Plan Triage Chief Complaint: Fever ED Provider: Anna White Dx/Rx/DC Orders Clinical Impression: Fever and neutropenia, Hx of cancer of uterus, Thrombocytopenia Prescriptions: No Action multivitamin Tablet 1 tablet PO DAILY cholecalciferol (vitamin D3) 25 mcg (1,000 unit) capsule 25 mcg PO DAILY Fiber Gummies 2 gram tablet,chewable 2 g PO DAILY (DME) Hydrocortisone 2.5%/lidocaine 5% suppository (cmpd) Suppository See Rx Instructions .ROUTE .MEDSUPPLY Qty: 30 1RF Rx Instructions: As directed ascorbic acid (vitamin C) [Vitamin C] 500 mg Tablet 500 mg PO DAILY B-complex with vitamin C [Vitamin B Complex-8] Tablet 1 tab PO DAILY epinephrine 0.3 mg/0.3 mL auto-injector 0.3 mg IM Q10M PRN (Reason: anaphylaxis) Qty: 2 0RF Rx Instructions: for 2 doses prednisone 20 mg tablet 40 mg PO DAILY Qty: 8 0RF Zyrtec 10 mg capsule 10 mg PO DAILY Qty: 7 0RF Primary Care Provider: Jose L Wiseman Referrals: Jose L Wiseman MD [Primary Care Provider] - Disposition Disposition: Acute Care [facility]
[2022-07-01] MEDS: 0.9% Normal Saline 1,000 ML 150 ML IV (12:55)
--- NOTE | 2022-07-01 12:59 | RAD_ITS ---
STUDY: X-RAY CHEST REASON FOR EXAM: Female, 71 years old. Dyspnea TECHNIQUE: Single AP portable view of the chest. COMPARISON: None. FINDINGS: EKG electrodes are seen. Hyperinflation. The lungs are clear. There is no demonstrated pleural abnormality. Normal size heart. Normal mediastinum and kali. Normal visualized pulmonary arteries. There is atherosclerotic calcification of the aortic arch with tortuosity. There are diffuse degenerative changes of the visualized thoracic spine. Normal visualized ribs, clavicles, and shoulders. There is no demonstrated abnormality of the visualized soft tissue structures of the upper abdomen. RAD/Chest 1 View (Portable) IMPRESSION: Hyperinflation. The lungs are clear. Electronically Signed: Russ Lion MD at 13:10 EDT ,
[2022-07-01 13:00] LABS: Absolute Lymphocyte Count 0.97 X10^3/uL (0.83-4.51); Absolute Neutrophil Count 0.3 X10^3/uL (2.0-7.7); Basophil# 0.01 X10^3/uL; Basophil% 0.5 % (0-1); Hematocrit 24.5 % (37-47); Lymphocyte # 0.97 X10^3/ul (0.83-4.51); Lymphocyte % 50.3 % (19-41); Mean Corp Hgb Conc 32.7 g/dL (32-36); Mean Corpuscular Hgb 34.3 pg (27.0-32.0); Mean Corpuscular Volume 105.2 fL (81-99); Mean Platelet Vol. 10.3 fl (6.2-12.0); Monocyte# 0.64 X10^3/uL; Monocyte% 33.2 % (0-10); NRBC Flagged by Analyzer 0 % (0-5); Neutrophil # 0.31 X10^3/uL (2.7-7.7); POSITIVE DIFFERENTIAL YES; Platelet Count 100 K/mm3 (150-450); RBC Distribution Width CV 15.8 % (11.6-14.6); RBC Distribution Width SD 59.7 fl (35.1-43.9); Red Blood Count 2.33 M/mm3 (4.2-5.4); White Blood Count 1.9 K/mm3 (4.4-11.0)
[2022-07-01 13:06] LABS: Differential Indicated SCAN CRITERIA MET
[2022-07-01 13:16] LABS: AST(SGOT) 22 U/L (15-37); Alanine Aminotransfer ALT/SGPT 22 U/L (13-56); Albumin, Serum 3.4 g/dL (3.2-5.0); Alkaline Phosphatase 78 U/L (45-117); Anion Gap 5 (5-15); BUN 12 mg/dL (7-18); BUN/Creat Ratio 15.8 RATIO (10-20); Calcium,Total 8.4 mg/dL (8.5-10.1); Chloride 105 mmol/L (98-107); Creatinine, Serum 0.76 mg/dL (0.55-1.02); EST Glomerular Filtration Rate 80 mL/min (>60); Est Glom Filt Rate - Afr Amer 97 mL/min (>60); Estimated Creatinine Clearance 45.85 ml/min; Globulin 3.5 g/dL (2.2-4.2); Glucose 97 mg/dL (74-106); Potassium 3.8 mmol/L (3.5-5.1); Protein, Total 6.9 g/dL (6.4-8.2); Sodium Level 138 mmol/L (136-145)
[2022-07-01 13:18] LABS: D-Dimer Quantitative (DVT/PE) 1.19 FEU/ug/m (0.27-0.49)
[2022-07-01 13:33] LABS: Differential Comment SCANNED
[2022-07-01 13:38] LABS: Lactic Acid 0.8 mmol/L (0.4-1.9)
--- NOTE | 2022-07-01 13:47 | CT_ITS ---
STUDY: CTA CHEST REASON FOR EXAM: Female, 71 years old. Dyspnea RADIATION DOSAGE (If Supplied By Facility): CTDIvol = ( 11.70 ) mGy, DLP = ( 376.52 ) mGycm TECHNIQUE: The examination was performed with the intravenous administration of IV 100mL [id number]-370. Post-processing of the angiographic images was performed, with multiplanar reformation and 3D reconstruction. Individualized dose optimization techniques were used for this CT. COMPARISON: None. FINDINGS: Normal enhancement of the main pulmonary artery and right and left pulmonary arteries. Normal enhancement of the bilateral peripheral pulmonary arteries. There is no demonstrated pulmonary embolism. Normal thoracic aorta and visualized great vessels. There is no demonstrated aortic dissection. Normal heart and pericardium. Normal mediastinum. Normal hilar regions. Normal visualized trachea and bronchi. The lungs are well expanded. Normal pulmonary parenchyma. Normal pleura. Normal chest wall structures. Normal osseous structures. Stable hepatic cysts. Stable cyst in the upper pole of the left kidney. CT/CTA Chest W/WO Contrast IMPRESSION: Normal CTA chest examination, without a demonstrated pulmonary embolism or arterial dissection. Electronically Signed: Russ Lion MD at 14:33 EDT ,
[2022-07-01 14:14] LABS: Bacteria 0 SEEN /hpf (None Seen); Mucous, Urine 0 SEEN /hpf (<or=2+); Red Blood Cells-Urine 0 SEEN /hpf (0-5); Squamous Epithelial Cells - UA 0 SEEN /hpf (5-10); White Blood Cells 0 SEEN /hpf (0-5)
[2022-07-01 14:29] LABS: Glucose, Dipstick Normal (Normal); Ketone-Dipstick Negative (Negative); Leukocyte Esterase-Dipstick Negative /ul (Negative); Nitrite-Dipstick Negative (Negative); Occult Blood-Urine Negative /ul (Negative); Protein-Dipstick Negative (Negative); Urine Bilirubin Dipstick Negative (Negative); Urine Urobilinogen Normal (Normal)
[2022-07-01 14:49] LABS: Color, Urine Yellow (Yellow); Urine Clarity Clear (Clear)
--- NOTE | 2022-07-01 15:39 | PCM.HP.STD ---
HPI - General General Date of Admission: 07/01/22 Date of Service: 07/01/22 Chief Complaint: Neutropenic fever, unclear source. HPI Narrative The patient is a 71 y/o F w/ PMHx: Allergic rhinitis, Endometrial/Uterine Cancer with ongoing chemotherapy last ~ 2 weeks prior who presents to the [facility] ED on 07/01/22 with history of onset fever on day of presentation with mild body aches as well as cervical lymphadenopathy and mild dyspnea but no cough with no recent ill contacts and no associated nausea, emesis or diarrhea or urinary symptoms however given ongoing chemotherapy prompted ED evaluation. Patient does report that her 5-year-old granddaughter did stay with her within the last 5 to 7 days but she did not have any respiratory type symptoms or any illness at that time but this is her only contact of any concern. Work-up in the ED included T98.3, heart rate 77, BP 149/78, respiratory rate 14, 97% on room air CBC with WBC 1.9, hemoglobin 8.0, MCV 105.2, platelet 100 with neutropenia, D-dimer 1.19, CMP not marked appearing, lactic acid 0.8, urinalysis unremarkable, chest x-ray with hyperinflation with no acute cardiopulmonary findings, CTPA with no demonstrated PE or arterial dissection with no acute cardiopulmonary findings, negative rapid strep with confirmatory culture pending and requested evaluation, blood culture x2 pending per ED, urine culture pending per ED, negative SARS COVID and influenza antigen. In the ED patient administered IV zosyn empirically. Patient in the ED very reticent to stay therefore several attempts made and eventually did contact patient's oncology nurse and reviewed her case who agreed that she should be admitted therefore this was rediscussed with patient and she was now amenable. [facility] Medical History Arthritis Cancer Cancer of endometrium Cardiology follow-up encounter Hemorrhoids History of fracture of ankle Hx of echocardiogram Non-smoker Osteoarthritis Osteopenia Port-A-Cath in place Post-menopausal bleeding Regional lymph node metastasis present Wears glasses Home Medications cholecalciferol (vitamin D3) 25 mcg (1,000 unit) capsule 25 mcg PO DAILY 06/19/20 [History Last Taken 06/30/22] multivitamin 1 tablet PO DAILY 06/19/20 [History Last Taken 06/30/22] B-complex with vitamin C 1 tab PO DAILY 01/07/21 [History Last Taken 06/30/22] ascorbic acid (vitamin C) 500 mg tablet (Vitamin C) 500 mg PO DAILY 01/07/21 [History Last Taken 06/30/22] alpha lipoic acid 200 mg capsule 200 mg PO DAILY SUPPLEMENT 07/01/22 [History Last Taken 06/30/22] Allergy/AdvReac Type Severity Reaction Status Date / Time carboplatin Allergy Severe Rash Verified 07/01/22 12:05 hyaluronidase Allergy Severe Rash Verified 07/01/22 12:05 [From Herceptin Hylecta] paclitaxel [From Taxol] Allergy Severe Rash Verified 07/01/22 12:05 [id number] Allergy Severe Rash Verified 07/01/22 12:05 [From Herceptin Hylecta] levofloxacin [From Levaquin] AdvReac Severe abdominal Verified 07/01/22 12:05 pain Family History Father Cancer lung Sister Depression Thyroid disorder Hypertension Skin cancer Diabetes Grandmother Osteoporosis Mother Hypertension Skin cancer Aunt Cancer cervical cancer Other Arthritis Surgical History History of ankle surgery History of colonoscopy (2003) History of knee surgery History of sinus surgery Hx of total hysterectomy S/P hemorrhoidectomy Social History Smoking Status: Never smoker second hand exposure: No alcohol intake: never caffeine: Yes what type of physical activity do you participate in: walking frequency: 3-4 times per week seatbelt use: always do you feel safe at home: Yes additional social history: [employer] [facility] ROS ROS Narrative Admission Review of Systems: CONSTITUTIONAL: No weight loss, + fever, chills, weakness or fatigue. HEENT: + mild rhinorrhea. Eyes: No visual loss, blurred vision, double vision or yellow sclerae. Ears, Nose, Throat: No hearing loss, sneezing or sore throat. SKIN: No rash or itching, lesions, wounds. CARDIOVASCULAR: No chest pain, chest pressure or chest discomfort, palpitations, edema, orthopnea, syncopal events. RESPIRATORY: No shortness of breath, cough or sputum, wheezing, hemoptysis. GASTROINTESTINAL: + anorexia, No nausea, vomiting or diarrhea, abdominal pain, melena, BRBPR. GENITOURINARY: No dysuria, frequency, urgency or retention. NEUROLOGICAL: No headache, dizziness, syncope, paralysis, ataxia, numbness or tingling in the extremities, focal weakness, change in bowel or bladder control, seizure. MUSCULOSKELETAL: + muscle, back pain, joint pain or stiffness. HEMATOLOGIC: + anemia, bleeding or bruising. LYMPHATICS: No enlarged nodes. No history of splenectomy. PSYCHIATRIC: No history of depression or anxiety. ENDOCRINOLOGIC: No reports of sweating, cold or heat intolerance. No polyuria or polydipsia. ALLERGIES: + history of rhinitis. Vital Signs Vital Signs Vital Signs: 07/01/22 11:57 07/01/22 12:04 07/01/22 12:06 Temperature 98.4 F 98.5 F Temperature Source Oral Oral Pulse Rate 98 Respiratory Rate 20 H Respiratory Effort Short of Breath Respiratory Pattern Normal Blood Pressure 181/78 H Blood Pressure Mean 112 Pulse Ox 98 Oxygen Delivery Method Room Air 07/01/22 12:12 07/01/22 13:23 07/01/22 13:33 Temperature 98.5 F 98.3 F Temperature Source Oral Oral Pulse Rate 78 79 73 Respiratory Rate 17 18 13 Respiratory Effort Respiratory Pattern Blood Pressure 150/77 H 145/69 H 135/69 H Blood Pressure Mean 101 94 91 Pulse Ox 96 99 99 Oxygen Delivery Method Room Air Room Air Room Air 07/01/22 14:01 07/01/22 14:30 07/01/22 15:07 Temperature 98.3 F Temperature Source Oral Pulse Rate 76 78 77 Respiratory Rate 15 17 15 Respiratory Effort Respiratory Pattern Blood Pressure 149/74 H 158/79 H 149/78 H Blood Pressure Mean 99 105 101 Pulse Ox 100 98 98 Oxygen Delivery Method Room Air Room Air Room Air 07/01/22 15:08 Temperature 98.3 F Temperature Source Oral Pulse Rate 77 Respiratory Rate 14 Respiratory Effort Respiratory Pattern Blood Pressure 149/78 H Blood Pressure Mean 101 Pulse Ox 97 Oxygen Delivery Method Room Air Weight Weight: 155 lb Body Mass Index (BMI) 26.6 Physical Exam Narrative Physical Examination: General: Awake, alert, oriented x 3 and cooperative, seated upright in the ED bed in no apparent distress. Skin: Normal color, normal turgor, no icterus, no cyanosis except occasional staged ecchymoses. HEENT: AT/NC, EOMI, PERRLA, MMM, no carotid bruits or JVD noted. Lungs: Diminished, greater bases, appropriate effort, no rales, ronchi or wheezing. Heart: Currently regular rate and rhythm; no gallop, rub audible. Abdomen: Soft, NTTP, ND, normal BS, no obvious evidence of HSM. Extremities: No cyanosis, clubbing, or edema. Neurological: Patient awake, alert, oriented as noted, cognitive function intact; pupils equally reactive to light and accommodation, cranial nerves II-XII grossly normal, moving all 4 extremities, no focal deficits, strength mildly to moderately globally decreased secondary to acute presentation. Psychiatric: Affect appears fatigued otherwise normal, no acute evidence of depressive or anxiety feelings. Results Lab / Micro Data Result Diagrams: 07/01/22 12:45 07/01/22 12:45 Labs: Laboratory Results - last 24 hr 07/01/22 12:45: WBC 1.9 L, RBC 2.33 L, Hgb 8.0 L, Hct 24.5 L, MCV 105.2 H, MCH 34.3 H, MCHC 32.7, RDW Std Deviation 59.7 H, RDW Coeff of [place] 15.8 H, Plt Count 100 L, MPV 10.3, Immature Gran % (Auto) 0.000, Neut % (Auto) 16.0 L, Lymph % (Auto) 50.3 H, [place] % (Auto) 33.2 H, Eos % (Auto) 0.0, Baso % (Auto) 0.5, Absolute Neuts (auto) 0.3 L, Absolute Lymphs (auto) 0.97, Nucleated RBC % 0, Differential Comment SCANNED 07/01/22 12:45: D-Dimer Quant (PE/DVT) 1.19 H* 07/01/22 12:45: Sodium 138, Potassium 3.8, Chloride 105, Carbon Dioxide 28.0, Anion Gap 5, BUN 12, Creatinine 0.76, Estim Creat Clear Calc 45.85, Est GFR (MDRD) Af Amer 97, Est GFR (MDRD) Non-Af 80, BUN/Creatinine Ratio 15.8, Glucose 97, Calcium 8.4 L, Total Bilirubin 0.30, AST 22, ALT 22, Alkaline Phosphatase 78, Total Protein 6.9, Albumin 3.4, Globulin 3.5, Albumin/Globulin Ratio 1.0 07/01/22 12:45: Lactic Acid 0.8 07/01/22 13:55: Urine Color Yellow, Urine Clarity Clear, Urine pH 8.0, Ur Specific [place] 1.010, Urine Protein Negative, Urine Glucose (UA) Normal, Urine Ketones Negative, Urine Occult Blood Negative, Urine Nitrite Negative, Urine Bilirubin Negative, Urine Urobilinogen Normal, Ur Leukocyte Esterase Negative, Urine RBC 0 SEEN, Urine WBC 0 SEEN, Ur Squamous Epith Cells 0 SEEN, Urine Bacteria 0 SEEN, Urine Mucus 0 SEEN Micro: Microbiology 07/01/22 12:57 Nasal Secretion SARS-CoV-2 & FLU Antigen (Rapid) - Final 07/01/22 12:30 Interface Orders Group A Streptococcus Rapid Screen - Preliminary Radiology Impression Chest X-Ray 07/01/22 12:59 IMPRESSION: Hyperinflation. The lungs are clear. Electronically Signed: Russ Lion MD at 13:10 EDT , Chest CTA 07/01/22 13:47 IMPRESSION: Normal CTA chest examination, without a demonstrated pulmonary embolism or arterial dissection. Electronically Signed: Russ Lion MD at 14:33 EDT , Assessment & Plan Assessment/Plan (1) Fever and neutropenia: PLAN: Plan The patient is a 71 y/o F w/ PMHx: Allergic rhinitis, Endometrial/Uterine Cancer with ongoing chemotherapy last ~ 2 weeks prior who presents to the [facility] ED on 07/01/22 with history of onset fever on day of presentation with mild body aches as well as cervical lymphadenopathy and mild dyspnea but no cough with no recent ill contacts and no associated nausea, emesis or diarrhea or urinary symptoms however given ongoing chemotherapy prompted ED evaluation. #1. Neutropenic fever of unclear etiology, potentially Viral Syndrome: Oncology at [facility] consulted and aware of her admission with requested early follow-up after discharge. Will admit to [facility], maintain on Neutropenic precautions, obtain mag and phos level given recent chemotherapy treatments, maintain I&Os, treat with IV cefepime pending cultures. PRN tylenol, anti-emetics, pain regimen, will dose with granix. #2. Elevated BP without hypertensive diagnosis: Unclear if related with her acute presentation, BP above normal range, will continue monitor and if remains elevated and consistent with hypertension would add oral regimen, as needed IV hydralazine in the interim #3. Endometrial/uterine cancer: Status post hysterectomy, ongoing chemotherapy, following with oncology in the [facility], made aware of her current presentation and plan of care to which they are amenable, magnesium and phosphorus levels requested, CBC with evidence of pancytopenia, will trend. #4. Allergic rhinitis: Noted history, currently not on any scheduled regimen. #5. DVT prophylaxis: SCDs. #6. CODE status: Patient ALVARO is her daughter who is present and living will is currently in place. Discussed CODE status at length including difference between FULL code, DNR-CCA and DNR-CC status. Following discussions about the differences in these status, requested Full Code status although from discussions do believe this has not been discussed at length and recommended that they continue to review these items as patient was initially hesitant for full code. Advanced Care Planning Face to Face Time: 16 minutes. Admission Evaluation Time spent evaluating chart, patient history, patient evaluation, care planning and discussion with specialists: 75 minutes. Charges/Coding Visit Charges Inpatient E&M: 15959 Init Hosp L3 Procedures Hospitalists Procedures: 26605 Advncd Care Plan 30 Min
[2022-07-01 17:35] LABS: Phosphorus 3.2 mg/dL (2.5-4.9)
[2022-07-01] MEDS: TBO-FILGRASTIM 480 MCG/0.8 ML ML SC (20:17)
[2022-07-01] MEDS: 0.9% Normal Saline 1,000 ML 100 ML IV (20:31)
[2022-07-02 02:40] VITALS: BP 135/70; PULSE 92; RESP 17; TEMP 37.2; O2SAT 95
[2022-07-02] MEDS: 0.9% Normal Saline 1,000 ML 100 ML IV (05:41)
[2022-07-02 06:00] VITALS: BMI 25.7
[2022-07-02 06:45] LABS: Absolute Lymphocyte Count 1.13 X10^3/uL (0.83-4.51); Absolute Neutrophil Count 1.9 X10^3/uL (2.0-7.7); Basophil# 0.01 X10^3/uL; Basophil% 0.3 % (0-1); Eosinophil# 0.01 X10^3/uL; Eosinophils% 0.3 % (0-5); Hematocrit 23.9 % (37-47); Lymphocyte # 1.13 X10^3/ul (0.83-4.51); Lymphocyte % 30.4 % (19-41); Mean Corp Hgb Conc 33.5 g/dL (32-36); Mean Corpuscular Hgb 35.2 pg (27.0-32.0); Mean Corpuscular Volume 105.3 fL (81-99); Mean Platelet Vol. 10.1 fl (6.2-12.0); Monocyte# 0.63 X10^3/uL; Monocyte% 16.9 % (0-10); NRBC Flagged by Analyzer 0 % (0-5); Neutrophil # 1.93 X10^3/uL (2.7-7.7); Neutrophil % 51.8 % (47-70); POSITIVE COUNT YES; POSITIVE MORPHOLOGY YES; Platelet Count 92 K/mm3 (150-450); RBC Distribution Width CV 16.1 % (11.6-14.6); RBC Distribution Width SD 62.1 fl (35.1-43.9); Red Blood Count 2.27 M/mm3 (4.2-5.4); White Blood Count 3.7 K/mm3 (4.4-11.0)
[2022-07-02 07:09] LABS: Differential Indicated SCAN CRITERIA MET
[2022-07-02 07:27] VITALS: O2SAT 94
[2022-07-02 07:29] LABS: ALB/GLOB Ratio 0.9 RATIO (0.9-2.4); AST(SGOT) 17 U/L (15-37); Alanine Aminotransfer ALT/SGPT 19 U/L (13-56); Alkaline Phosphatase 68 U/L (45-117); Anion Gap 3 (5-15); BUN 9 mg/dL (7-18); BUN/Creat Ratio 13.9 RATIO (10-20); Calcium,Total 8.1 mg/dL (8.5-10.1); Chloride 110 mmol/L (98-107); Creatinine, Serum 0.65 mg/dL (0.55-1.02); EST Glomerular Filtration Rate 96 mL/min (>60); Est Glom Filt Rate - Afr Amer 117 mL/min (>60); Estimated Creatinine Clearance 45.85 ml/min; Globulin 3.2 g/dL (2.2-4.2); Glucose 92 mg/dL (74-106); Potassium 3.6 mmol/L (3.5-5.1); Protein, Total 6.2 g/dL (6.4-8.2); Sodium Level 139 mmol/L (136-145)
[2022-07-02 08:48] VITALS: BP 142/76; PULSE 83; RESP 18; TEMP 36.8; O2SAT 97
--- NOTE | 2022-07-02 08:54 | PCM.DC.SUM ---
Providers Date of Admission: 07/01/22 Date of Discharge: 07/02/22 Primary Care Physician: Dr. Jose L Wiseman MD Reason For Visit: NEUTROPENIC FEVER Diagnosis Discharge Diagnosis (1) Fever and neutropenia: Status: Acute Code(s): D70.9 - Neutropenia, unspecified; R50.81 - Fever presenting with conditions classified elsewhere Medications at Discharge Home Medications cholecalciferol (vitamin D3) 25 mcg (1,000 unit) capsule 25 mcg PO DAILY 06/19/20 multivitamin 1 tablet PO DAILY 06/19/20 B-complex with vitamin C 1 tab PO DAILY 01/07/21 ascorbic acid (vitamin C) 500 mg tablet (Vitamin C) 500 mg PO DAILY 01/07/21 alpha lipoic acid 200 mg capsule 200 mg PO DAILY SUPPLEMENT 07/01/22 cefdinir 300 mg capsule 300 mg PO BID #10 caps 07/02/22 Hospital Course Summary of Care Provided Minutes Spent on Discharge: 35 Hospital Course: Patient is a 71-year-old lady with history of endometrial cancer currently undergoing chemo presented with fever and body aches 1. Fever in a patient undergoing chemotherapy. Patient was placed on a monitored bed cultures came back negative. An order was given for patient to undergo viral respiratory panel this could not be performed due to lack of availability so for 01/13/2023. Patient requested to be discharged home. She was instructed to call her oncologist for follow-up 2. Endometrial CA ? Status post hysterectomy currently undergoing chemo 3. Allergic rhinitis ? Stable 4. Chemo induced pancytopenia ? Did monitor patient CBC with differential 5. DVT prophylaxis ? Bilateral SCDs Physical Exam Narrative GENERAL: cooperative HEENT: Atraumatic; normocephalic EYES; Anicteric, Normal Conjunctiva NECK; supple, normal thyroid, RESPIRATORY: Diminished to auscultation CARDIOVASCULAR: Regular S1 S2, GI: soft, normoactive bowel sounds, : No Renal angle tenderness; EXTREMITIES: No edema, no clubbing, MUSCULOSKELETAL: no muscle wasting NEURO: Awake; no lateralizing signs. SKIN: No Rash PSYCH; Flat affect Weight / BMI Weight Weight: 68.3 kg Body Mass Index (BMI) 25.7 ABG / Lab / Microbiology Data Result Diagrams: 07/02/22 06:00 07/02/22 06:00 Laboratory: Laboratory Results - last 24 hr 07/01/22 12:45: WBC 1.9 L, RBC 2.33 L, Hgb 8.0 L, Hct 24.5 L, MCV 105.2 H, MCH 34.3 H, MCHC 32.7, RDW Std Deviation 59.7 H, RDW Coeff of [place] 15.8 H, Plt Count 100 L, MPV 10.3, Immature Gran % (Auto) 0.000, Neut % (Auto) 16.0 L, Lymph % (Auto) 50.3 H, [place] % (Auto) 33.2 H, Eos % (Auto) 0.0, Baso % (Auto) 0.5, Absolute Neuts (auto) 0.3 L, Absolute Lymphs (auto) 0.97, Nucleated RBC % 0, Differential Comment SCANNED 07/01/22 12:45: D-Dimer Quant (PE/DVT) 1.19 H* 07/01/22 12:45: Sodium 138, Potassium 3.8, Chloride 105, Carbon Dioxide 28.0, Anion Gap 5, BUN 12, Creatinine 0.76, Estim Creat Clear Calc 45.85, Est GFR (MDRD) Af Amer 97, Est GFR (MDRD) Non-Af 80, BUN/Creatinine Ratio 15.8, Glucose 97, Calcium 8.4 L, Total Bilirubin 0.30, AST 22, ALT 22, Alkaline Phosphatase 78, Total Protein 6.9, Albumin 3.4, Globulin 3.5, Albumin/Globulin Ratio 1.0 07/01/22 12:45: Lactic Acid 0.8 07/01/22 12:45: Phosphorus 3.2, Magnesium 2.0 07/01/22 13:55: Urine Color Yellow, Urine Clarity Clear, Urine pH 8.0, Ur Specific [place] 1.010, Urine Protein Negative, Urine Glucose (UA) Normal, Urine Ketones Negative, Urine Occult Blood Negative, Urine Nitrite Negative, Urine Bilirubin Negative, Urine Urobilinogen Normal, Ur Leukocyte Esterase Negative, Urine RBC 0 SEEN, Urine WBC 0 SEEN, Ur Squamous Epith Cells 0 SEEN, Urine Bacteria 0 SEEN, Urine Mucus 0 SEEN 07/01/22 19:25: COVID-19 (NICOLE) Not Detected 07/02/22 06:00: WBC 3.7 L, RBC 2.27 L, Hgb 8.0 L, Hct 23.9 L, MCV 105.3 H, MCH 35.2 H, MCHC 33.5, RDW Std Deviation 62.1 H, RDW Coeff of [place] 16.1 H, Plt Count 92 L, MPV 10.1, Immature Gran % (Auto) 0.300, Neut % (Auto) 51.8, Lymph % (Auto) 30.4, [place] % (Auto) 16.9 H, Eos % (Auto) 0.3, Baso % (Auto) 0.3, Absolute Neuts (auto) 1.9 L, Absolute Lymphs (auto) 1.13, Nucleated RBC % 0 07/02/22 06:00: Sodium 139, Potassium 3.6, Chloride 110 H, Carbon Dioxide 26.0, Anion Gap 3 L, BUN 9, Creatinine 0.65, Estim Creat Clear Calc 45.85, Est GFR (MDRD) Af Amer 117, Est GFR (MDRD) Non-Af 96, BUN/Creatinine Ratio 13.9, Glucose 92, Calcium 8.1 L, Total Bilirubin 0.30, AST 17, ALT 19, Alkaline Phosphatase 68, Total Protein 6.2 L, Albumin 3.0 L, Globulin 3.2, Albumin/Globulin Ratio 0.9 Microbiology: Microbiology 07/01/22 13:55 Urine, Clean Catch Urine Culture - Preliminary Culture exhibits no growth. 07/01/22 12:57 Nasal Secretion SARS-CoV-2 & FLU Antigen (Rapid) - Final 07/01/22 12:30 Interface Orders Group A Streptococcus Rapid Screen - Preliminary Radiography Diagnostic Testing: Radiology Impression Chest X-Ray 07/01/22 12:59 IMPRESSION: Hyperinflation. The lungs are clear. Electronically Signed: Russ Lion MD at 13:10 EDT , Chest CTA 07/01/22 13:47 IMPRESSION: Normal CTA chest examination, without a demonstrated pulmonary embolism or arterial dissection. Electronically Signed: Russ Lion MD at 14:33 EDT , D/C Instructions Discharge Diet: No restrictions Discharge Activity: Return to Normal Activity Call your doctor if you observe: Fever of 101 or Higher, Shortness of breath, Fainting spells and Chest pain Meaningful Use Info Meaningful Use Diagnoses (Choose all that apply): None applicable Discharge Plan Admission Admit Date/Time: 07/01/22 15:40 Attending Provider: Pilo Harrell Primary Care Provider: Jose L Wiseman Consulting Providers: Marisa Hay Discharge Orders/Prescriptions Prescriptions: New cefdinir 300 mg capsule 300 mg PO BID Qty: 10 0RF Continued multivitamin Tablet 1 tablet PO DAILY cholecalciferol (vitamin D3) 25 mcg (1,000 unit) capsule 25 mcg PO DAILY ascorbic acid (vitamin C) [Vitamin C] 500 mg Tablet 500 mg PO DAILY B-complex with vitamin C Tablet 1 tab PO DAILY alpha lipoic acid 200 mg Capsule 200 mg PO DAILY Referrals / Follow Up: Jose L Wiseman MD [Primary Care Provider] - Disposition Disposition (needs filled in before D/C Order can be placed): Home, Self Care Charges/Coding Visit Charges Inpatient E&M: 16250 Disch Hosp >30min
[2022-07-02 09:37] LABS: Differential Comment SCANNED; Platelet Estimate MOD DEC (ADEQ)
== END 2022-07-02 10:44 | disposition home or self-care (01) ==
LOC: ED 15:47 → MS3 16:16
PROVIDERS: Admitting Provider Family Medicine; Emergency Provider Emergency Medicine; PCP Internal Medicine; Referring Provider Internal Medicine; Visit Provider Internal Medicine
DX: D70.9 Neutropenia, unspecified (principal); C77.9 Secondary and unspecified malignant neoplasm of lymph node, unspecified; D61.810 Antineoplastic chemotherapy induced pancytopenia; C54.1 Malignant neoplasm of endometrium; R06.02 Shortness of breath; R50.81 Fever presenting with conditions classified elsewhere; T45.1X5A Adverse effect of antineoplastic and immunosuppressive drugs, initial encounter; J30.9 Allergic rhinitis, unspecified; R59.0 Localized enlarged lymph nodes; Z79.899 Other long term (current) drug therapy
CPT/HCPCS: 36415; 71045; 71275; 80053; 81001; 83605; 83735; 84100; 85025; 85379; 87040; 87086; 87428; 87633; 87635; 87880; 94668; 96361; 96365; 96366; 96367; 96372; 99221; 99252; 99285; J7030; Q9967; A4216; G0378; G0463; J1447; U0003; U0005

== ENCOUNTER 2022-07-07 10:26 | Outpatient (RCR) | payer MEDICARE, OTHER, SELFPAY ==
[2022-07-07 10:56] LABS: Absolute Lymphocyte Count 0.93 X10^3/uL (0.83-4.51); Absolute Neutrophil Count 1.3 X10^3/uL (2.0-7.7); Basophil# 0.01 X10^3/uL; Basophil% 0.4 % (0-1); Eosinophil# 0.01 X10^3/uL; Eosinophils% 0.4 % (0-5); Hemoglobin 8.5 g/dL (12.0-15.0); Lymphocyte # 0.93 X10^3/ul (0.83-4.51); Lymphocyte % 35.5 % (19-41); Mean Corpuscular Hgb 35.4 pg (27.0-32.0); Mean Corpuscular Volume 104.2 fL (81-99); Mean Platelet Vol. 9.6 fl (6.2-12.0); Monocyte# 0.33 X10^3/uL; Monocyte% 12.6 % (0-10); NRBC Flagged by Analyzer 0 % (0-5); Neutrophil # 1.33 X10^3/uL (2.7-7.7); Neutrophil % 50.7 % (47-70); Platelet Count 111 K/mm3 (150-450); RBC Distribution Width CV 15.6 % (11.6-14.6); RBC Distribution Width SD 59.3 fl (35.1-43.9); White Blood Count 2.6 K/mm3 (4.4-11.0)
[2022-07-07 11:07] LABS: ALB/GLOB Ratio 0.9 RATIO (0.9-2.4); AST(SGOT) 19 U/L (15-37); Alanine Aminotransfer ALT/SGPT 23 U/L (13-56); Albumin, Serum 3.4 g/dL (3.2-5.0); Alkaline Phosphatase 89 U/L (45-117); Anion Gap 5 (5-15); BUN 14 mg/dL (7-18); BUN/Creat Ratio 18.9 RATIO (10-20); Calcium,Total 8.3 mg/dL (8.5-10.1); Chloride 106 mmol/L (98-107); Creatinine, Serum 0.74 mg/dL (0.55-1.02); EST Glomerular Filtration Rate 82 mL/min (>60); Est Glom Filt Rate - Afr Amer 100 mL/min (>60); Globulin 3.7 g/dL (2.2-4.2); Glucose 103 mg/dL (74-106); Potassium 3.6 mmol/L (3.5-5.1); Protein, Total 7.1 g/dL (6.4-8.2); Sodium Level 140 mmol/L (136-145)
== END 2022-07-24 23:59 ==
LOC: PAVLAB 10:26
PROVIDERS: PCP Internal Medicine; Referring Provider Obstetrics & Gynecology Gynecologic Oncology; Visit Provider Obstetrics & Gynecology Gynecologic Oncology
DX: C54.1 Malignant neoplasm of endometrium (principal)
CPT/HCPCS: 36415; 80053; 85025; 86304

== ENCOUNTER 2022-08-18 10:40 | Outpatient (RCR) | payer MEDICARE, OTHER, SELFPAY ==
[2022-07-28 11:07] LABS: Absolute Lymphocyte Count 0.97 X10^3/uL (0.83-4.51); Absolute Neutrophil Count 1.5 X10^3/uL (2.0-7.7); Basophil# 0.02 X10^3/uL; Basophil% 0.7 % (0-1); Eosinophil# 0.01 X10^3/uL; Eosinophils% 0.4 % (0-5); Hemoglobin 8.3 g/dL (12.0-15.0); Lymphocyte # 0.97 X10^3/ul (0.83-4.51); Lymphocyte % 34.3 % (19-41); Mean Corp Hgb Conc 33.2 g/dL (32-36); Mean Corpuscular Hgb 36.4 pg (27.0-32.0); Mean Corpuscular Volume 109.6 fL (81-99); Mean Platelet Vol. 9.1 fl (6.2-12.0); Monocyte# 0.34 X10^3/uL; NRBC Flagged by Analyzer 0 % (0-5); Neutrophil # 1.48 X10^3/uL (2.7-7.7); Neutrophil % 52.2 % (47-70); POSITIVE MORPHOLOGY YES; Platelet Count 216 K/mm3 (150-450); RBC Distribution Width CV 17.9 % (11.6-14.6); RBC Distribution Width SD 73.4 fl (35.1-43.9); Red Blood Count 2.28 M/mm3 (4.2-5.4); White Blood Count 2.8 K/mm3 (4.4-11.0)
[2022-07-28 11:21] LABS: Differential Indicated SCAN CRITERIA MET
[2022-07-28 11:22] LABS: ALB/GLOB Ratio 1.1 RATIO (0.9-2.4); AST(SGOT) 29 U/L (15-37); Alanine Aminotransfer ALT/SGPT 34 U/L (13-56); Albumin, Serum 3.7 g/dL (3.2-5.0); Alkaline Phosphatase 94 U/L (45-117); Anion Gap 8 (5-15); BUN 17 mg/dL (7-18); BUN/Creat Ratio 21.5 RATIO (10-20); Calcium,Total 8.7 mg/dL (8.5-10.1); Chloride 107 mmol/L (98-107); Creatinine, Serum 0.79 mg/dL (0.55-1.02); EST Glomerular Filtration Rate 77 mL/min (>60); Est Glom Filt Rate - Afr Amer 93 mL/min (>60); Globulin 3.5 g/dL (2.2-4.2); Glucose 97 mg/dL (74-106); Protein, Total 7.2 g/dL (6.4-8.2); Sodium Level 142 mmol/L (136-145)
[2022-07-28 11:53] LABS: Anisocytosis 1+
[2022-07-29 04:07] LABS: Cancer Antigen 125 14.8 U/mL (0.0-38.1)
[2022-08-18 11:04] LABS: Absolute Lymphocyte Count 0.91 X10^3/uL (0.83-4.51); Absolute Neutrophil Count 1.3 X10^3/uL (2.0-7.7); Basophil# 0.01 X10^3/uL; Basophil% 0.4 % (0-1); Eosinophil# 0.02 X10^3/uL; Eosinophils% 0.8 % (0-5); Hematocrit 26.6 % (37-47); Hemoglobin 8.6 g/dL (12.0-15.0); Lymphocyte # 0.91 X10^3/ul (0.83-4.51); Mean Corp Hgb Conc 32.3 g/dL (32-36); Mean Corpuscular Hgb 37.1 pg (27.0-32.0); Mean Corpuscular Volume 114.7 fL (81-99); Mean Platelet Vol. 9.7 fl (6.2-12.0); Monocyte# 0.28 X10^3/uL; Monocyte% 11.1 % (0-10); NRBC Flagged by Analyzer 0 % (0-5); Neutrophil # 1.31 X10^3/uL (2.7-7.7); Neutrophil % 51.7 % (47-70); POSITIVE MORPHOLOGY YES; Platelet Count 157 K/mm3 (150-450); RBC Distribution Width CV 16.3 % (11.6-14.6); RBC Distribution Width SD 68.8 fl (35.1-43.9); Red Blood Count 2.32 M/mm3 (4.2-5.4); White Blood Count 2.5 K/mm3 (4.4-11.0)
[2022-08-18 11:16] LABS: Differential Indicated SCAN CRITERIA MET
[2022-08-18 11:24] LABS: ALB/GLOB Ratio 1.1 RATIO (0.9-2.4); AST(SGOT) 31 U/L (15-37); Alanine Aminotransfer ALT/SGPT 41 U/L (13-56); Albumin, Serum 3.7 g/dL (3.2-5.0); Alkaline Phosphatase 99 U/L (45-117); Anion Gap 5 (5-15); BUN 16 mg/dL (7-18); BUN/Creat Ratio 21.4 RATIO (10-20); Calcium,Total 8.4 mg/dL (8.5-10.1); Chloride 109 mmol/L (98-107); Creatinine, Serum 0.75 mg/dL (0.55-1.02); EST Glomerular Filtration Rate 82 mL/min (>60); Est Glom Filt Rate - Afr Amer 99 mL/min (>60); Globulin 3.4 g/dL (2.2-4.2); Glucose 104 mg/dL (74-106); Potassium 3.7 mmol/L (3.5-5.1); Protein, Total 7.1 g/dL (6.4-8.2); Sodium Level 142 mmol/L (136-145)
[2022-08-19 04:07] LABS: Cancer Antigen 125 13.1 U/mL (0.0-38.1)
== END 2022-08-24 23:59 ==
LOC: PAVLAB 10:40
PROVIDERS: PCP Internal Medicine; Referring Provider Obstetrics & Gynecology Gynecologic Oncology; Visit Provider Obstetrics & Gynecology Gynecologic Oncology
DX: C54.1 Malignant neoplasm of endometrium (principal)
CPT/HCPCS: 36415; 80053; 85025; 86304

== ENCOUNTER → 2022-08-26 | Outpatient (CLI) | payer MEDICARE, OTHER, SELFPAY ==
--- NOTE | 2022-08-26 13:50 | ECHODONC_ITS ---
Reason For Study: Endometrial Cancer Procedure This was a 2D Doppler, Color Flow transthoracic echocardiogram. Myocardial strain analysis was performed in this exam to aid in the assessment of cardiac function. Exam performed in department. Left Ventricle Normal LV size. Mild concentric left ventricular hypertrophy. The global longitudinal strain = -20.3 % (normal). The left ventricular ejection fraction is 65 %. Normal diastology for age. Right Ventricle Normal right ventricle. Atria The left and right atria are normal. Mitral Valve Mild-Moderate (1-2+) mitral valve insufficiency. Tricuspid Valve Mild tricuspid valve insufficiency. Normal pulmonary artery pressure. Aortic Valve Trisinus/trileaflet aortic valve. There is no aortic stenosis. Mild-Moderate (1-2+) aortic valve insufficiency. Pulmonic Valve Trivial pulmonic valve insufficiency. Great Vessels Normal sized aortic root. Pericardium/Pleural No pericardial effusion. MMode/2D Measurements & Calculations LVIDd: 4.3 cm IVSd: 1.2 cm Ao root diam: 3.3 cm LVIDs: 2.9 cm LVPWd: 0.91 cm LA dimension: 3.3 cm RVDd: 3.7 cm FS: 32.5 % LAV(MOD-bp): 49.3 ml LVAd ap4: 28.8 cm2 SV(MOD-sp4): 49.0 ml LAV(MOD-bp) Indexed: 28.5 ml/m2 LVLd ap4: 7.3 cm LAV(MOD-sp2): 53.3 ml EDV(MOD-sp4): 91.8 ml LAV(MOD-sp4): 42.7 ml EDV(sp4-el): 97.1 ml LVAs ap4: 17.3 cm2 LVLs ap4: 6.1 cm ESV(MOD-sp4): 42.7 ml ESV(sp4-el): 41.5 ml EF(MOD-sp4): 53.4 % EF(sp4-el): 57.2 % SV(sp4-el): 55.6 ml LA A4 area: 17.1 cm2 RA A4 area: 15.6 cm2 TAPSE: 1.9 cm Time Measurements MV dec time: 0.17 sec Doppler Measurements & Calculations MV E max rian: 79.5 cm/sec Lat Peak E' Rian: 10.7 cm/sec Med Peak E' Rian: 6.6 cm/sec MV A max rian: 87.3 cm/sec E/E' lat: 7.4 E/E' med: 12.0 MV E/A: 0.91 MV V2 max: 87.2 cm/sec MV P1/2t max rian: 81.9 cm/sec Ao V2 max: 121.7 cm/sec MV max P.0 mmHg MV P1/2t: 53.1 msec Ao max P.9 mmHg MV V2 mean: 54.3 cm/sec MV dec slope: 451.6 cm/sec2 Ao V2 mean: 82.3 cm/sec MV mean P.4 mmHg Ao mean P.2 mmHg MV V2 VTI: 23.8 cm MVA(P1/2t): 4.1 cm2 Ao V2 VTI: 30.3 cm AV (velocity ratio): 0.88 AI max rian: 436.2 cm/sec LV V1 max: 106.0 cm/sec PA V2 max: 96.5 cm/sec AI max P.3 mmHg LV V1 max P.5 mmHg PA V2 mean: 68.1 cm/sec AI dec slope: 283.7 cm/sec2 LV V1 mean P.1 mmHg AI P1/2t: 450.2 msec LV V1 mean: 67.3 cm/sec LV V1 VTI: 26.7 cm PI end-d rian: 100.9 cm/sec TR max rian: 247.2 cm/sec TR max P.4 mmHg ECHO/ONC Echo Complete Interpretation Summary Mild concentric left ventricular hypertrophy. The global longitudinal strain = -20.3 % (normal). The left ventricular ejection fraction is 65 %. Mild-Moderate (1-2+) mitral valve insufficiency. Mild tricuspid valve insufficiency. Mild-Moderate (1-2+) aortic valve insufficiency. Ordering Physician: KATELYN MASON Referring Physician: Jose L Wiseman Performed By: Alberto Yip RCS
== END | disposition home or self-care (01) ==
LOC: CVS 13:42
PROVIDERS: PCP Internal Medicine; Referring Provider Nurse Practitioner Gerontology; Visit Provider Nurse Practitioner Gerontology
DX: Z51.11 Encounter for antineoplastic chemotherapy (principal); C54.1 Malignant neoplasm of endometrium
CPT/HCPCS: 93306; 93356

== ENCOUNTER → 2022-09-06 | Outpatient (CLI) | payer MEDICARE, OTHER, SELFPAY ==
--- NOTE | 2022-09-06 09:00 | PET_ITS ---
EXAMINATION: FDG PET-CT INDICATIONS: A 71-year-old female with history of endometrial carcinoma presenting for restaging examination. COMPARISON EXAMINATION: Previous FDG PET study dated 03/16/22 TECHNIQUE: Following the intravenous administration of 14.42 mCi of F-18 deoxyglucose via the right antecubital fossa, multiplanar image acquisitions of the neck, chest, abdomen and pelvis to level of mid thigh, obtained at one hour post radiopharmaceutical administration contemporaneously interpreted with the current CT of the neck, chest, abdomen and pelvis, to level of mid thigh, dated 09/06/22 via coregistration and FDG PET study dated 03/16/22 reveals: BLOOD GLUCOSE LEVEL:?? 125 mg/dl?HEIGHT:?64 inches?WEIGHT: 150 lbs. FINDINGS: Head/Neck: There is no evidence of abnormal increased glucose metabolism in the pharyngeal mucosal space, parapharyngeal space, bilateral-lateral and anterior neck, hypopharynx and distribution of the laryngeal structures. The visualized portion of the cerebral cortical-subcortical structures demonstrate symmetric and preserved glucose metabolism. CHEST: There is no quantitative scintigraphic evidence of abnormal increased glucose metabolism within the context of the bilateral hemithorax pulmonary parenchyma, right and left hemithorax pleural interface, mediastinal structures and right-left thoracic perihilum. Prominent radiopharmaceutical concentration is identified in the left ventricular myocardium commensurate with the [place]. Previously defined morphologic-anatomic changes noted on review of CT of the chest dated 03/16/22, are essentially unchanged on the current examination. Abdomen/Pelvis: The prior defined vaginal cuff, as well as obturator and left common iliac hypermetabolic lymphadenopathy are not encountered on the current examination. Normal physiologic distribution of the radiopharmaceutical is apparent in the hepatic (??) and splenic parenchyma, both renal units, bladder and visualized intestinal tract. Review of CT of the abdomen and pelvis dated 03/16/23 demonstrates no significant interval change. Skeletal: There are no well-defined sclerotic-lytic changes manifest on review of the appendicular-axial skeletal structures. PET/PET/CT Tumor Base -Thigh Subs IMPRESSION: 1. NEGATIVE EXAMINATION. There is no definitive quantitative scintigraphic evidence of recurrent/viable neoplasm. 2. There is interim metabolic resolution of the prior defined vaginal cuff and obturator left common iliac lymphadenopathy. 3. Overall, compared to the prior FDG PET study dated 03/16/22, there is interim metabolic resolution of the prior defined quantitatively significant hypermetabolic foci. Electronic Signature Sunday Granados D.O. Accurate Quantification of SUVs for this report are calculated using the exclusive [employer]. ([place].S. Patent No. [id number] 983 B2 [phone] [place] patent [phone]). Standardization and correction of the FDG SUV metric via ACCUQUAN technology allow for vendor non-specific objective quantitative examination comparison and optimization of the sensitivity and specificity of the FDG PET-CT examination. Electronically Signed: Sunday Granados, at 11:52 EDT ,
== END | disposition home or self-care (01) ==
LOC: ONC 08:35
PROVIDERS: PCP Internal Medicine; Referring Provider Nurse Practitioner Gerontology; Visit Provider Nurse Practitioner Gerontology
DX: C54.1 Malignant neoplasm of endometrium (principal)
CPT/HCPCS: 78815; A9552

== ENCOUNTER → 2022-11-22 | Outpatient (CLI) | payer MEDICARE, OTHER, SELFPAY ==
--- NOTE | 2022-11-22 12:38 | ECHOD_ITS ---
Reason For Study: ENDOMETRIAL CANCER Procedure This was a 2D Doppler, Color Flow transthoracic echocardiogram. Myocardial strain analysis was performed in this exam to aid in the assessment of cardiac function. Exam performed in department. Left Ventricle Normal LV size. Stage 1 diastolic dysfunction. The estimated ejection fraction is 60 %. The global longitudinal strain = -18.9 % (normal). No regional wall motion abnormalities noted. Right Ventricle Normal RV size. Normal systolic function. Atria Normal left atrium. Normal right atrium. Mitral Valve Normal mitral valve. Tricuspid Valve Normal tricuspid valve. Aortic Valve Normal aortic valve. Trisinus/trileaflet aortic valve. Pulmonic Valve Normal pulmonic valve. Great Vessels Normal aortic root. The pulmonary artery is normal size. Normal inferior vena cava. Pericardium/Pleural No pericardial effusion. MMode/2D Measurements & Calculations LVIDd: 4.6 cm IVSd: 0.79 cm Ao root diam: 3.1 cm LVIDs: 3.8 cm LVPWd: 0.73 cm RVDd: 3.4 cm FS: 17.7 % LAV(MOD-bp): 38.5 ml LVAd ap4: 27.1 cm2 SV(MOD-sp4): 44.7 ml LAV(MOD-bp) Indexed: 22.9 ml/m2 LVLd ap4: 7.9 cm LAV(MOD-sp2): 36.3 ml EDV(MOD-sp4): 75.6 ml LAV(MOD-sp4): 38.8 ml EDV(sp4-el): 79.0 ml LVAs ap4: 15.3 cm2 LVLs ap4: 6.6 cm ESV(MOD-sp4): 31.0 ml ESV(sp4-el): 30.1 ml EF(MOD-sp4): 59.1 % EF(sp4-el): 61.9 % SV(sp4-el): 48.9 ml LA A4 area: 15.7 cm2 LA dimension(2D): 3.5 cm RA A4 area: 9.8 cm2 TAPSE: 2.2 cm Time Measurements MV dec time: 0.19 sec Doppler Measurements & Calculations MV E max rian: 58.4 cm/sec Lat Peak E' Rian: 8.2 cm/sec Med Peak E' Rian: 4.8 cm/sec MV A max rian: 61.4 cm/sec E/E' lat: 7.2 E/E' med: 12.2 MV E/A: 0.95 MV V2 max: 80.5 cm/sec Ao V2 max: 105.3 cm/sec MV max P.6 mmHg MV dec slope: 313.5 cm/sec2 Ao max P.4 mmHg MV V2 mean: 58.3 cm/sec Ao V2 mean: 71.6 cm/sec MV mean P.5 mmHg Ao mean P.3 mmHg MV V2 VTI: 31.8 cm Ao V2 VTI: 27.6 cm AV (velocity ratio): 0.96 AI max rian: 433.3 cm/sec LV V1 max: 101.3 cm/sec PA V2 max: 76.8 cm/sec AI max P.1 mmHg LV V1 max P.1 mmHg PA V2 mean: 54.5 cm/sec LV V1 mean P.1 mmHg AI dec slope: 237.4 cm/sec2 LV V1 mean: 66.7 cm/sec AI P1/2t: 534.6 msec LV V1 VTI: 26.4 cm ECHO/Echo Complete Interpretation Summary Normal LV size. Stage 1 diastolic dysfunction. The estimated ejection fraction is 60 %. The global longitudinal strain = -18.9 % (normal). Liver Cyst present. Ordering Physician: Denis Richey Referring Physician: Denis Richey Performed By: Kelly Samson RCS
== END | disposition home or self-care (01) ==
LOC: CVS 12:37
PROVIDERS: PCP Internal Medicine; Referring Provider Obstetrics & Gynecology Gynecologic Oncology; Visit Provider Obstetrics & Gynecology Gynecologic Oncology
DX: C54.1 Malignant neoplasm of endometrium (principal); Z51.11 Encounter for antineoplastic chemotherapy
CPT/HCPCS: 93306

== ENCOUNTER → 2023-02-20 | Outpatient (CLI) | payer MEDICARE, OTHER, SELFPAY ==
--- NOTE | 2023-02-20 13:50 | ECHODONC_ITS ---
Reason For Study: ANTINEOPLASTIC CHEMO Procedure This was a 2D Doppler, Color Flow transthoracic echocardiogram. Myocardial strain analysis was performed in this exam to aid in the assessment of cardiac function. Exam performed in department. Left Ventricle Normal LV size. Left ventricular systolic function is normal. The estimated ejection fraction is 65 %. Stage 1 diastolic dysfunction. No regional wall motion abnormalities noted. Right Ventricle Normal RV size. Normal systolic function. Atria Normal left atrium. Normal right atrium. Mitral Valve Normal mitral valve. Tricuspid Valve Normal tricuspid valve. Mild tricuspid valve insufficiency. Pulmonary artery systolic pressure is 24 mmHg. Aortic Valve Trisinus/trileaflet aortic valve. Mild (1+) aortic valve insufficiency. Pulmonic Valve Normal pulmonic valve. Great Vessels Normal aortic root. The pulmonary artery is normal size. Normal inferior vena cava. Pericardium/Pleural No pericardial effusion. MMode/2D Measurements & Calculations LVIDd: 3.6 cm IVSd: 1.4 cm Ao root diam: 3.2 cm LVIDs: 2.3 cm LVPWd: 1.1 cm RVDd: 2.8 cm FS: 35.6 % LAV(MOD-bp): 61.4 ml EDV(MOD-sp4): 96.1 ml EDV(MOD-sp2): 50.1 ml LAV(MOD-bp) Indexed: 35.7 ml/m2 ESV(MOD-sp4): 36.4 ml ESV(MOD-sp2): 17.6 ml LAV(MOD-sp2): 57.4 ml EF(MOD-sp4): 62.1 % EF(MOD-sp2): 64.9 % LAV(MOD-sp4): 57.6 ml SV(MOD-sp4): 59.7 ml SV(MOD-sp2): 32.5 ml LA A4 area: 17.6 cm2 LA dimension(2D): 3.4 cm TAPSE: 2.1 cm RA A4 area: 11.3 cm2 Time Measurements MV dec time: 0.18 sec Doppler Measurements & Calculations MV E max rian: 61.1 cm/sec Lat Peak E' Rian: 7.6 cm/sec Med Peak E' Rian: 5.9 cm/sec MV A max rian: 70.4 cm/sec E/E' lat: 8.0 E/E' med: 10.4 MV E/A: 0.87 MV V2 max: 77.0 cm/sec MV P1/2t max rian: 71.4 cm/sec Ao V2 max: 91.4 cm/sec MV max P.4 mmHg MV P1/2t: 70.5 msec Ao max P.3 mmHg MV V2 mean: 45.3 cm/sec MV dec slope: 296.6 cm/sec2 Ao V2 mean: 63.8 cm/sec MV mean P.95 mmHg Ao mean P.9 mmHg MV V2 VTI: 27.1 cm MVA(P1/2t): 3.1 cm2 Ao V2 VTI: 23.5 cm AV (velocity ratio): 0.98 AI max rian: 416.9 cm/sec LV V1 max: 100.9 cm/sec PA V2 max: 75.2 cm/sec AI max P.6 mmHg LV V1 max P.1 mmHg PA V2 mean: 54.3 cm/sec AI dec slope: 253.4 cm/sec2 LV V1 mean P.2 mmHg AI P1/2t: 481.8 msec LV V1 mean: 69.1 cm/sec LV V1 VTI: 23.0 cm PI dec slope: 168.8 cm/sec2 TR max rian: 224.0 cm/sec TR max P.1 mmHg ECHO/ONC Echo Complete Interpretation Summary Normal LV size. Left ventricular systolic function is normal. The estimated ejection fraction is 65 %. Stage 1 diastolic dysfunction. Pulmonary artery systolic pressure is 24 mmHg. The global longitudinal strain is normal. The global longitudinal strain = -19. 8 % (normal). Ordering Physician: RODNEY DREW Referring Physician: OTD Performed By: Salud Lloyd RDCS, RVT
== END | disposition home or self-care (01) ==
LOC: CVS 13:47
DX: Z51.11 Encounter for antineoplastic chemotherapy (principal)
CPT/HCPCS: 93306; 93356

== ENCOUNTER → 2023-03-14 | Outpatient (CLI) | payer MEDICARE, OTHER, SELFPAY ==
--- NOTE | 2023-03-14 09:30 | PET_ITS ---
EXAMINATION: FDG PET/CT ? INDICATIONS: 72-year-old female with a history of endometrial carcinoma, presenting for restaging examination. ? COMPARISON EXAMINATION: FDG-PET CT study dated 09/06/2022. ? TECHNIQUE: Following the intravenous administration of 14.23 mCi of F-18 deoxyglucose via the right antecubital fossa, multiplanar image acquisitions of the head, neck, chest, abdomen and pelvis to the level of the midthigh, obtained at one-hour post radiopharmaceutical administration contemporaneously interpreted with the current CT of the chest, abdomen and pelvis dated 03/14/2023 and prior FDG-PET CT study dated 09/06/2022 via coregistration reveal: SERUM GLUCOSE LEVEL:? 99 mg/dL? HEIGHT:?? 63 inches WEIGHT:?? 155 pounds ? FINDINGS: ? HEAD/NECK:? There is no evidence of abnormal increased glucose metabolism in the pharyngeal mucosal space, parapharyngeal space, oropharynx, bilateral-lateral and anterior neck, hypopharynx and distribution of the larynx. ? The visualized portion of the cerebral cortical-subcortical structures demonstrate symmetric and preserved glucose metabolism. ? CHEST:? There is no quantitative scintigraphic evidence of abnormal increased glucose metabolism within the context of the bilateral hemithorax pulmonary parenchyma, right and left hemithorax at the pleural interface, mediastinal structures, and left-right thoracic perihilum. The left ventricular myocardium visualization is consistent with the [place]. ? CT of the chest demonstrates the following anatomic characteristics: On review of CT of the chest, there is no definitive interval change compared to the study dated 09/06/2022. ? ABDOMEN/PELVIS:? Normal physiologic distribution of the radiopharmaceutical is identified in the hepatic and splenic parenchyma, both renal units, urinary bladder, and visualized intestinal tract. Cyst formation is defined in the left and right lobe of the hepatic parenchyma. ? CT of the abdomen and pelvis is remarkable for the following: On review of CT of the abdomen/pelvis, there is no definitive interval change compared to the study dated 09/06/2022. ? SKELETAL:? There is no evidence of quantitatively significant enhanced glucose metabolism on meticulous inspection of the appendicular and axial skeletal structures. ? Degenerative changes defined in the thoracic and lumbar spine demonstrate no evidence of increased glucose metabolism. There are no sclerotic, mixed sclerotic-lytic, or primarily lytic changes defined in the axial skeletal structures with evidence of increased FDG uptake. ? PET/PET/CT Tumor Base -Thigh Subs IMPRESSION: 1. NEGATIVE EXAMINATION. There is no definitive quantitative scintigraphic evidence of recurrent-metastatic viable neoplasm. 2. Overall, compared to the prior FDG-PET CT study dated 09/06/2022, there is current and continued absence of defined viable neoplastic disease. Electronic Signature Sunday Grandaos D.O. Accurate Quantification of SUVs for this report are calculated using the exclusive [employer]. (U.S. Patent No. [phone], [id number] 983 B2 [phone] [place] patent [phone]). Standardization and correction of the FDG SUV metric via [employer] technology allow for vendor non-specific objective quantitative examination comparison and optimization of the sensitivity and specificity of the FDG PET-CT examination. . [email or web address] Electronically Signed: Sunday Granados DO at 12:16 EST ,
== END | disposition home or self-care (01) ==
LOC: ONC 09:10
DX: Z01.89 Encounter for other specified special examinations (principal); C79.82 Secondary malignant neoplasm of genital organs; C54.1 Malignant neoplasm of endometrium; M25.552 Pain in left hip; M89.8X5 Other specified disorders of bone, thigh
CPT/HCPCS: 78815; A9552

== ENCOUNTER 2023-05-15 10:47 | Outpatient (CLI) | payer MEDICARE, OTHER, SELFPAY ==
--- NOTE | 2023-05-15 10:51 | ECHODONC_ITS ---
Reason For Study: ANTINEOPLASTIC CHEMOTHERAPY Procedure This was a 2D Doppler, Color Flow transthoracic echocardiogram. Myocardial strain analysis was performed in this exam to aid in the assessment of cardiac function. Exam performed in department. Left Ventricle Normal LV size. Left ventricular systolic function is normal. The left ventricular ejection fraction is 60 %. Stage 1 diastolic dysfunction. No regional wall motion abnormalities noted. Right Ventricle Normal RV size. Normal systolic function. Atria Normal left atrium. Normal right atrium. Mitral Valve There is mild mitral annular calcification. Mild (1+) eccentric mitral valve insufficiency. Tricuspid Valve Normal tricuspid valve. Mild (1+) tricuspid valve insufficiency. Pulmonary artery systolic pressure is 25 mmHg. Aortic Valve Normal aortic valve. Trisinus/trileaflet aortic valve. Trivial aortic valve insufficiency. Pulmonic Valve Normal pulmonic valve. Great Vessels Normal aortic root. The pulmonary artery is normal size. Normal inferior vena cava. Pericardium/Pleural No pericardial effusion. MMode/2D Measurements & Calculations LVIDd: 4.0 cm IVSd: 1.0 cm Ao root diam: 2.9 cm LVIDs: 2.7 cm LVPWd: 0.92 cm RVDd: 3.1 cm FS: 32.2 % LAV(MOD-bp): 23.7 ml LVAd ap4: 29.1 cm2 SV(MOD-sp4): 54.0 ml LAV(MOD-bp) Indexed: 13.8 ml/m2 LVLd ap4: 7.7 cm LAV(MOD-sp2): 26.1 ml EDV(MOD-sp4): 89.0 ml LAV(MOD-sp4): 21.1 ml EDV(sp4-el): 93.6 ml LVAs ap4: 16.5 cm2 LVLs ap4: 6.6 cm ESV(MOD-sp4): 35.0 ml ESV(sp4-el): 35.1 ml EF(MOD-sp4): 60.6 % EF(sp4-el): 62.6 % SV(sp4-el): 58.6 ml LA A4 area: 10.8 cm2 LA dimension(2D): 3.0 cm RA A4 area: 10.8 cm2 TAPSE: 1.8 cm Time Measurements MV dec time: 0.20 sec Doppler Measurements & Calculations MV E max rian: 60.2 cm/sec Lat Peak E' Rian: 11.3 cm/sec Med Peak E' Rian: 8.7 cm/sec MV A max rian: 83.2 cm/sec E/E' lat: 5.3 E/E' med: 6.9 MV E/A: 0.72 Ao V2 max: 105.5 cm/sec AI max rian: 429.9 cm/sec LV V1 max: 92.2 cm/sec Ao max P.5 mmHg AI max P.9 mmHg LV V1 max P.4 mmHg AI dec slope: 251.6 cm/sec2 AI P1/2t: 500.5 msec PA V2 max: 67.3 cm/sec TR max rian: 234.5 cm/sec TR max P.0 mmHg ECHO/ONC Echo Complete Interpretation Summary Normal LV size. Left ventricular systolic function is normal. The left ventricular ejection fraction is 60 %. Stage 1 diastolic dysfunction. The global longitudinal strain is normal. The global longitudinal strain = -17. 9 % (normal). Ordering Physician: RODNEY DREW Referring Physician: ANTONY BURR Performed By: Rylee Marte RDCS
== END 2023-05-15 23:59 | disposition home or self-care (01) ==
PROVIDERS: PCP Obstetrics & Gynecology Gynecologic Oncology
DX: C54.1 Malignant neoplasm of endometrium (principal); I34.0 Nonrheumatic mitral (valve) insufficiency
CPT/HCPCS: 93306; 93356

== ENCOUNTER → 2023-08-28 | Outpatient (CLI) | payer MEDICARE, OTHER, SELFPAY ==
--- NOTE | 2023-08-28 12:43 | ECHOD_ITS ---
Reason For Study: ENDOMETRIAL CANCER Procedure This was a 2D Doppler, Color Flow transthoracic echocardiogram. Myocardial strain analysis was performed in this exam to aid in the assessment of cardiac function. Exam performed in department. Left Ventricle Normal LV size. Mild concentric left ventricular hypertrophy. Left ventricular systolic function is normal. The estimated ejection fraction is 62 %. Stage 1 diastolic dysfunction. No regional wall motion abnormalities noted. Right Ventricle Normal RV size. Normal systolic function. Atria Normal left atrium. Normal right atrium. Mitral Valve There is mild to moderate mitral annular calcification. Mild (1+) mitral valve insufficiency. Tricuspid Valve Normal tricuspid valve. Mild (1+) tricuspid valve insufficiency. Pulmonary artery systolic pressure is 26 mmHg. Aortic Valve Trisinus/trileaflet aortic valve. Mild (1+) aortic valve insufficiency. Pulmonic Valve Normal pulmonic valve. Mild (1+) pulmonic valve insufficiency. MMode/2D Measurements & Calculations LVIDd: 3.8 cm IVSd: 1.5 cm LVOT diam: 2.0 cm LVIDs: 2.8 cm LVPWd: 1.2 cm LVOT area: 3.0 cm2 RVDd: 3.9 cm FS: 25.7 % LAV(MOD-bp): 36.6 ml LVAd ap4: 27.8 cm2 LVAd ap2: 29.4 cm2 LAV(MOD-bp) Indexed: 21.2 ml/m2 LVLd ap4: 7.3 cm LVLd ap2: 7.9 cm LAV(MOD-sp2): 43.4 ml EDV(MOD-sp4): 86.6 ml EDV(MOD-sp2): 92.5 ml LAV(MOD-sp4): 27.4 ml EDV(sp4-el): 90.4 ml EDV(sp2-el): 93.0 ml LVAs ap4: 15.0 cm2 LVAs ap2: 16.6 cm2 LVLs ap4: 5.8 cm LVLs ap2: 6.1 cm ESV(MOD-sp4): 33.6 ml ESV(MOD-sp2): 38.7 ml ESV(sp4-el): 33.2 ml ESV(sp2-el): 38.5 ml EF(MOD-sp4): 61.2 % EF(MOD-sp2): 58.2 % EF(sp4-el): 63.3 % SV(MOD-sp4): 53.0 ml SV(MOD-sp2): 53.8 ml SV(sp4-el): 57.2 ml LA A4 area: 12.6 cm2 RA A4 area: 10.4 cm2 TAPSE: 2.1 cm Time Measurements MV dec time: 0.28 sec Doppler Measurements & Calculations MV E max rian: 65.1 cm/sec Lat Peak E' Rian: 7.5 cm/sec Med Peak E' Rian: 4.3 cm/sec MV A max rian: 72.4 cm/sec E/E' lat: 8.7 E/E' med: 15.2 MV E/A: 0.90 MV V2 max: 82.2 cm/sec MV dec slope: 234.9 cm/sec2 Ao V2 max: 112.9 cm/sec MV max P.7 mmHg Ao max P.1 mmHg MV V2 mean: 42.5 cm/sec Ao V2 mean: 74.3 cm/sec MV mean P.86 mmHg Ao mean P.6 mmHg MV V2 VTI: 23.5 cm Ao V2 VTI: 27.5 cm MVA(VTI): 2.8 cm2 AV (velocity ratio): 0.78 FLORESITA(I,D): 2.4 cm2 FLORESITA(V,D): 2.6 cm2 AI max rian: 415.4 cm/sec LV V1 max: 94.9 cm/sec SV(LVOT): 65.1 ml AI max P.0 mmHg LV V1 max P.6 mmHg LV V1 mean P.9 mmHg AI dec slope: 233.4 cm/sec2 LV V1 mean: 64.1 cm/sec AI P1/2t: 521.3 msec LV V1 VTI: 21.4 cm PA V2 max: 58.0 cm/sec TR max rian: 236.3 cm/sec PA max PG (full): 0.13 mmHg TR max P.3 mmHg PA V2 mean: 41.0 cm/sec ECHO/Echo Complete Interpretation Summary Normal LV size. Left ventricular systolic function is normal. The estimated ejection fraction is 62 %. Mild concentric left ventricular hypertrophy. Stage 1 diastolic dysfunction. Mild (1+) mitral valve insufficiency. Mild (1+) aortic valve insufficiency. Mild (1+) tricuspid valve insufficiency. Liver cyst noted. The global longitudinal strain is normal. The global longitud inal strain = -20.4 % (normal). Ordering Physician: KATELYN MASON Referring Physician: KATELYN MASON Performed By: Kelly Webb and Student
== END | disposition home or self-care (01) ==
PROVIDERS: PCP Obstetrics & Gynecology Gynecologic Oncology; Referring Provider Nurse Practitioner Gerontology; Visit Provider Nurse Practitioner Gerontology
DX: Z51.11 Encounter for antineoplastic chemotherapy (principal)
CPT/HCPCS: 93306

== ENCOUNTER → 2023-09-27 | Outpatient (CLI) | payer MEDICARE, OTHER, SELFPAY ==
--- NOTE | 2023-09-27 09:52 | ECHODONC_ITS ---
Reason For Study: PRE-CHEMO Procedure This was a 2D Doppler, Color Flow transthoracic echocardiogram. Myocardial strain analysis was performed in this exam to aid in the assessment of cardiac function. Exam performed in department. Left Ventricle Normal LV size. Left ventricular systolic function is normal. The estimated ejection fraction is 63 %. No regional wall motion abnormalities noted. Right Ventricle Normal RV size. Normal systolic function. Atria Normal left atrium. Normal right atrium. Mitral Valve There is mild to moderate mitral annular calcification. Tricuspid Valve Normal tricuspid valve. Mild (1+) tricuspid valve insufficiency. Pulmonary artery systolic pressure is 24 mmHg. Aortic Valve Normal aortic valve. Trisinus/trileaflet aortic valve. Trivial aortic valve insufficiency. Great Vessels Normal aortic root. The pulmonary artery is normal size. Normal inferior vena cava. Pericardium/Pleural No pericardial effusion. MMode/2D Measurements & Calculations LVIDd: 4.5 cm IVSd: 0.91 cm Ao root diam: 3.0 cm LVIDs: 3.2 cm LVPWd: 0.82 cm RVDd: 3.0 cm FS: 28.8 % LAV(MOD-bp): 26.8 ml LVAd ap4: 24.2 cm2 SV(MOD-sp4): 36.4 ml LAV(MOD-bp) Indexed: 15.6 ml/m2 LVLd ap4: 7.4 cm LAV(MOD-sp2): 33.8 ml EDV(MOD-sp4): 63.6 ml LAV(MOD-sp4): 21.5 ml EDV(sp4-el): 66.5 ml LVAs ap4: 14.6 cm2 LVLs ap4: 6.4 cm ESV(MOD-sp4): 27.2 ml ESV(sp4-el): 28.2 ml EF(MOD-sp4): 57.2 % EF(sp4-el): 57.7 % SV(sp4-el): 38.4 ml LA dimension(2D): 3.1 cm LA A4 area: 10.5 cm2 RA A4 area: 8.7 cm2 TAPSE: 1.9 cm Time Measurements MV dec time: 0.25 sec Doppler Measurements & Calculations MV E max rian: 52.6 cm/sec Lat Peak E' Rian: 9.5 cm/sec Med Peak E' Rian: 6.9 cm/sec MV A max rian: 60.3 cm/sec E/E' lat: 5.5 E/E' med: 7.6 MV E/A: 0.87 Ao V2 max: 111.7 cm/sec AI max rian: 401.7 cm/sec LV V1 max: 90.8 cm/sec Ao max P.0 mmHg AI max P.6 mmHg LV V1 max P.3 mmHg AI dec slope: 219.9 cm/sec2 AI P1/2t: 535.0 msec PA V2 max: 74.4 cm/sec TR max rian: 233.0 cm/sec TR max P.7 mmHg ECHO/ONC Echo Complete Interpretation Summary Normal LV size. Left ventricular systolic function is normal. The estimated ejection fraction is 63 %. Trivial aortic valve insufficiency. Pulmonary artery systolic pressure is 24 mmHg. The global longitudinal strain is normal. The global longitudinal strain = -17 % (normal). Ordering Physician: KATELYN MASON Referring Physician: KATELYN MASON Performed By: Rylee Marte RDCS
== END | disposition home or self-care (01) ==
LOC: CVS 09:51
PROVIDERS: PCP Obstetrics & Gynecology Gynecologic Oncology; Referring Provider Nurse Practitioner Gerontology; Visit Provider Nurse Practitioner Gerontology
DX: Z51.11 Encounter for antineoplastic chemotherapy (principal)
CPT/HCPCS: 93306; 93356

== ENCOUNTER → 2023-10-03 | Outpatient (CLI) | payer MEDICARE, OTHER, SELFPAY ==
--- NOTE | 2023-10-03 11:30 | PET_ITS ---
EXAMINATION: FDG PET-CT INDICATIONS: A 72-year-old female with history of endometrial carcinoma presenting for restaging examination. COMPARISON EXAMINATION: FDG PET study dated 03/14/23 TECHNIQUE: Following the intravenous administration of 13.38 mCi of F-18 deoxyglucose via the left antecubital fossa, multiplanar image acquisitions of the neck, chest, abdomen and pelvis to level of mid thigh, obtained at one hour post radiopharmaceutical administration contemporaneously interpreted with the current CT of the neck, chest, abdomen and pelvis, to level of mid thigh, dated 10/03/23 via coregistration and FDG PET study dated 03/14/23 reveals: BLOOD GLUCOSE LEVEL:?? 82 mg/dl?HEIGHT:?63 inches?WEIGHT: 150 lbs. FINDINGS: Head/Neck: There is no evidence of abnormal increased glucose metabolism in the pharyngeal mucosal space, parapharyngeal space, bilateral-lateral and anterior neck, hypopharynx and distribution of the laryngeal structures. The visualized portion of the cerebral cortical-subcortical structures demonstrate symmetric and preserved glucose metabolism. CHEST: There is no quantitative scintigraphic evidence of abnormal increased glucose metabolism within the context of the bilateral hemithorax pulmonary parenchyma, right and left hemithorax pleural interface, mediastinal structures and right-left thoracic perihilum. Previously defined morphologic-anatomic changes noted on review of CT of the chest dated 03/14/23, are essentially unchanged on the current examination. Abdomen/Pelvis: Normal physiologic distribution of the radiopharmaceutical is apparent in the hepatic and splenic parenchyma, both renal units, bladder and visualized intestinal tract. A large photopenic abnormality is noted in the hepatic parenchyma commensurate with cyst formation. Review of CT of the abdomen and pelvis dated 03/14/23 demonstrates no significant interval change. Skeletal: Degenerative changes are noted in the cervical, thoracic and lumbar spine without evidence of increased radiopharmaceutical concentration. PET/PET/CT Tumor Base -Thigh Subs IMPRESSION: 1. NEGATIVE EXAMINATION. There is no definitive quantitative scintigraphic evidence of recurrent/viable neoplasm. 2. Overall, compared to the prior FDG PET study dated 03/14/23, there is current and continued absence of defined viable neoplastic disease. Electronic Signature Sunday Granados D.O. Accurate Quantification of SUVs for this report are calculated using the exclusive [employer], (U.S. Patent No. 10, [id number] 983 B2 [phone] [place] patent [phone] ). Standardization and correction of the FDG SUV metric exclusively available with [employer] intellectual property, allow for vendor non-specific objective quantitative sequential FDG PET-CT comparison and otherwise unobtainable optimization of the sensitivity and specificity of the examination. [email or web address] Electronically Signed: Sunday Granados DO at 8:17 EDT ,
== END | disposition home or self-care (01) ==
LOC: ONC 09:27
PROVIDERS: PCP Obstetrics & Gynecology Gynecologic Oncology; Referring Provider Nurse Practitioner Gerontology; Visit Provider Nurse Practitioner Gerontology
DX: C54.1 Malignant neoplasm of endometrium (principal)
CPT/HCPCS: 78815; A9552

== ENCOUNTER → 2023-12-29 | Outpatient (CLI) | payer MEDICARE, OTHER, SELFPAY ==
--- NOTE | 2023-12-29 08:50 | ECHODONC_ITS ---
Reason For Study: CHEMO Procedure This was a 2D Doppler, Color Flow transthoracic echocardiogram. Myocardial strain analysis was performed in this exam to aid in the assessment of cardiac function. Exam performed in department. Left Ventricle Normal LV size. Left ventricular systolic function is normal. The left ventricular ejection fraction is 55 %. Stage 1 diastolic dysfunction. No regional wall motion abnormalities noted. Right Ventricle Normal RV size. Normal systolic function. Atria Normal left atrium. Normal right atrium. Mitral Valve Normal mitral valve. Tricuspid Valve Normal tricuspid valve. Aortic Valve Trisinus/trileaflet aortic valve. Mild (1+) aortic valve insufficiency. Pericardium/Pleural No pericardial effusion. MMode/2D Measurements & Calculations LVIDd: 4.5 cm IVSd: 0.88 cm Ao root diam: 3.3 cm LVIDs: 3.3 cm LVPWd: 1.0 cm RVDd: 2.8 cm FS: 25.6 % LAV(MOD-bp): 35.3 ml SV(MOD-sp4): 38.7 ml LVAd ap4: 25.6 cm2 LAV(MOD-bp) Indexed: 20.6 ml/m2 LVLd ap4: 8.3 cm LAV(MOD-sp2): 44.8 ml EDV(MOD-sp4): 67.3 ml LAV(MOD-sp4): 30.6 ml EDV(sp4-el): 67.1 ml LVAs ap4: 15.5 cm2 LVLs ap4: 7.2 cm ESV(MOD-sp4): 28.6 ml ESV(sp4-el): 28.2 ml EF(MOD-sp4): 57.5 % EF(sp4-el): 57.9 % SV(sp4-el): 38.8 ml LA dimension(2D): 2.9 cm LA A4 area: 14.0 cm2 TAPSE: 1.5 cm RA A4 area: 10.0 cm2 Time Measurements MV dec time: 0.20 sec Doppler Measurements & Calculations MV E max rian: 66.7 cm/sec Lat Peak E' Rina: 7.0 cm/sec Med Peak E' Rian: 5.3 cm/sec MV A max rian: 81.7 cm/sec E/E' lat: 9.5 E/E' med: 12.5 MV E/A: 0.82 MV V2 max: 84.9 cm/sec Ao V2 max: 115.2 cm/sec MV max P.9 mmHg MV dec slope: 328.1 cm/sec2 Ao max P.3 mmHg MV V2 mean: 52.6 cm/sec Ao V2 mean: 78.1 cm/sec MV mean P.2 mmHg Ao mean P.8 mmHg MV V2 VTI: 20.2 cm Ao V2 VTI: 28.9 cm AV (velocity ratio): 0.75 AI max rian: 500.9 cm/sec LV V1 max: 100.6 cm/sec PA V2 max: 78.7 cm/sec AI max P.4 mmHg LV V1 max P.1 mmHg PA V2 mean: 58.0 cm/sec AI dec slope: 320.7 cm/sec2 LV V1 mean P.3 mmHg AI P1/2t: 457.4 msec LV V1 mean: 71.6 cm/sec LV V1 VTI: 21.8 cm ECHO/ONC Echo Complete Interpretation Summary Normal LV size. Left ventricular systolic function is normal. The left ventricular ejection fraction is 55 %. Stage 1 diastolic dysfunction. The global longitudinal strain is borderline abnormal. The global longitudinal strain = -16.5% (abnormal). Compared to previous study, the left ventricular systolic function is the same.. Ordering Physician: Denis Richey Referring Physician: Denis Richey Performed By: Kelly Samson RCS
== END | disposition home or self-care (01) ==
PROVIDERS: PCP Obstetrics & Gynecology Gynecologic Oncology; Referring Provider Obstetrics & Gynecology Gynecologic Oncology; Visit Provider Obstetrics & Gynecology Gynecologic Oncology
DX: Z01.810 Encounter for preprocedural cardiovascular examination (principal); C54.1 Malignant neoplasm of endometrium
CPT/HCPCS: 93306; 93356

== ENCOUNTER → 2024-01-26 | Outpatient (CLI) | payer MEDICARE, OTHER, SELFPAY ==
--- NOTE | 2024-01-26 08:51 | ECHOD_ITS ---
Reason For Study: CHEMOTHERAPY Procedure This was a 2D Doppler, Color Flow transthoracic echocardiogram. Myocardial strain analysis was performed in this exam to aid in the assessment of cardiac function. Exam performed in department. Left Ventricle Normal LV size. The left ventricular ejection fraction is 60 %. Stage 1 diastolic dysfunction. No regional wall motion abnormalities noted. Right Ventricle Normal RV size. Normal systolic function. Atria Normal left atrium. Normal right atrium. Mitral Valve Normal mitral valve. Mild-Moderate (1-2+) eccentric mitral valve insufficiency. Tricuspid Valve Normal tricuspid valve. Mild tricuspid valve insufficiency. Pulmonary artery systolic pressure is 27 mmHg. Aortic Valve Trisinus/trileaflet aortic valve. Mild (1+) eccentric aortic valve insufficiency. Pulmonic Valve Normal pulmonic valve. Great Vessels Normal aortic root. The pulmonary artery is normal size. Normal inferior vena cava. Pericardium/Pleural No pericardial effusion. MMode/2D Measurements & Calculations LVIDd: 4.5 cm IVSd: 0.98 cm LVOT diam: 2.0 cm LVIDs: 2.7 cm LVPWd: 0.81 cm LVOT area: 3.1 cm2 RVDd: 3.1 cm FS: 39.9 % asc Aorta Diam: 3.6 cm LAV(MOD-bp): 50.0 ml LVAd ap4: 24.7 cm2 LAV(MOD-bp) Indexed: 29.2 ml/m2 LVLd ap4: 7.7 cm LAV(MOD-sp2): 55.1 ml EDV(MOD-sp4): 64.8 ml LAV(MOD-sp4): 43.1 ml EDV(sp4-el): 67.0 ml LVAs ap4: 14.4 cm2 LVLs ap4: 6.5 cm ESV(MOD-sp4): 27.2 ml ESV(sp4-el): 27.2 ml EF(MOD-sp4): 58.0 % EF(sp4-el): 59.3 % LVAd ap2: 22.6 cm2 SV(MOD-sp4): 37.6 ml SV(MOD-sp2): 31.5 ml LVLd ap2: 7.6 cm SI(MOD-sp4): 22.0 ml/m2 SI(MOD-sp2): 18.4 ml/m2 EDV(MOD-sp2): 54.9 ml EDV(sp2-el): 56.7 ml LVAs ap2: 13.6 cm2 LVLs ap2: 6.7 cm ESV(MOD-sp2): 23.4 ml ESV(sp2-el): 23.5 ml EF(MOD-sp2): 57.4 % SV(sp4-el): 39.7 ml Ao sinus diam: 3.[address] Junction: 2.6 cm LA dimension(2D): 3.2 cm LA A4 area: 15.7 cm2 RA A4 area: 11.8 cm2 TAPSE: 1.5 cm Time Measurements MV dec time: 0.18 sec Doppler Measurements & Calculations MV E max rian: 67.3 cm/sec Lat Peak E' Rian: 9.1 cm/sec Med Peak E' Rian: 8.0 cm/sec MV A max rian: 77.5 cm/sec E/E' lat: 7.4 E/E' med: 8.4 MV E/A: 0.87 MV dec slope: 369.0 cm/sec2 Ao V2 max: 103.0 cm/sec AI max rian: 386.3 cm/sec Ao max P.2 mmHg AI max P.7 mmHg Ao V2 mean: 73.2 cm/sec AI dec slope: 251.6 cm/sec2 Ao mean P.4 mmHg AI P1/2t: 449.7 msec Ao V2 VTI: 24.6 cm AV (velocity ratio): 0.82 FLORESITA(I,D): 2.5 cm2 FLORESITA(V,D): 2.6 cm2 LV V1 max: 88.2 cm/sec SV(LVOT): 62.2 ml PA V2 max: 74.5 cm/sec LV V1 max P.1 mmHg PA max PG (full): 1.1 mmHg LV V1 mean P.5 mmHg LV V1 mean: 56.0 cm/sec LV V1 VTI: 20.3 cm TR max rian: 241.1 cm/sec TR max P.3 mmHg ECHO/Echo Complete Interpretation Summary Normal LV size. The left ventricular ejection fraction is 60 %. Stage 1 diastolic dysfunction. Mild-Moderate (1-2+) eccentric mitral valve insufficiency. The global longitudinal strain is normal. The global longitudinal strain = -17 % (normal). Ordering Physician: Denis Richey Referring Physician: Denis Richey Performed By: Bianca Dewey RDCS
== END | disposition home or self-care (01) ==
LOC: CVS 08:50
PROVIDERS: PCP Obstetrics & Gynecology Gynecologic Oncology; Referring Provider Obstetrics & Gynecology Gynecologic Oncology; Visit Provider Obstetrics & Gynecology Gynecologic Oncology
DX: Z01.818 Encounter for other preprocedural examination (principal); C54.1 Malignant neoplasm of endometrium
CPT/HCPCS: 93306

== ENCOUNTER → 2024-03-25 | Outpatient (CLI) | payer MEDICARE, OTHER, SELFPAY ==
--- NOTE | 2024-03-25 08:47 | ECHOLONC_ITS ---
Reason For Study: CHEMOTHERAPY Procedure This was a limited 2D transthoracic echocardiogram. Myocardial strain analysis was performed in this exam to aid in the assessment of cardiac function. Exam performed in department. Left Ventricle Normal LV size. Left ventricular systolic function is normal. The estimated ejection fraction is 57 %. No regional wall motion abnormalities noted. Right Ventricle Normal RV size. Normal systolic function. Atria Normal left atrium. Normal right atrium. Mitral Valve There is mild mitral annular calcification. Tricuspid Valve Normal tricuspid valve. Mild tricuspid valve insufficiency. Aortic Valve Trisinus/trileaflet aortic valve. Mild (1+) aortic valve insufficiency. Pulmonic Valve Normal pulmonic valve. Great Vessels Normal aortic root. The pulmonary artery is normal size. Inferior vena cava collapse with respiration. Pericardium/Pleural No pericardial effusion. 7.9 x 7.6 cm cystic structure seen in the liver. MMode/2D Measurements & Calculations LVIDd: 4.6 cm IVSd: 1.1 cm LVOT diam: 2.0 cm LVIDs: 2.4 cm LVPWd: 0.87 cm LVOT area: 3.2 cm2 RVDd: 3.1 cm FS: 47.3 % LAV(MOD-bp): 50.4 ml LVAd ap4: 23.6 cm2 LVAd ap2: 23.4 cm2 LAV(MOD-bp) Indexed: 29.5 ml/m2 LVLd ap4: 7.1 cm LVLd ap2: 7.1 cm LAV(MOD-sp2): 58.3 ml EDV(MOD-sp4): 63.4 ml EDV(MOD-sp2): 62.8 ml LAV(MOD-sp4): 39.1 ml EDV(sp4-el): 67.0 ml EDV(sp2-el): 65.2 ml LVAs ap4: 14.4 cm2 LVAs ap2: 13.4 cm2 LVLs ap4: 6.1 cm LVLs ap2: 6.0 cm ESV(MOD-sp4): 29.0 ml ESV(MOD-sp2): 24.6 ml ESV(sp4-el): 28.6 ml ESV(sp2-el): 25.3 ml EF(MOD-sp4): 54.2 % EF(MOD-sp2): 60.7 % EF(sp4-el): 57.3 % SV(MOD-sp4): 34.3 ml SV(MOD-sp2): 38.1 ml SV(sp4-el): 38.4 ml SI(MOD-sp4): 20.1 ml/m2 SI(MOD-sp2): 22.3 ml/m2 Ao sinus diam: 2.[address] Junction: 2.5 cm LA A4 area: 14.4 cm2 LA dimension(2D): 3.3 cm TAPSE: 1.7 cm RA A4 area: 10.7 cm2 Time Measurements MV dec time: 0.18 sec Doppler Measurements & Calculations MV E max rian: 68.9 cm/sec Lat Peak E' Rian: 10.0 cm/sec Med Peak E' Rian: 6.1 cm/sec MV A max rian: 79.5 cm/sec E/E' lat: 6.9 E/E' med: 11.3 MV E/A: 0.87 MV dec slope: 382.7 cm/sec2 Ao V2 max: 115.0 cm/sec AI max rian: 398.5 cm/sec Ao max P.3 mmHg AI max P.5 mmHg Ao V2 mean: 75.2 cm/sec AI dec slope: 318.4 cm/sec2 Ao mean P.6 mmHg AI P1/2t: 366.5 msec Ao V2 VTI: 24.5 cm TR max rian: 208.1 cm/sec TR max P.3 mmHg ECHO/ONC Echo, Limited Study Interpretation Summary Normal LV size. Left ventricular systolic function is normal. The estimated ejection fraction is 57 %. Mild (1+) aortic valve insufficiency. The global longitudinal strain is normal. The global longitudinal strain = -19. 8 % (normal). Ordering Physician: Denis Richey Referring Physician: Denis Richey Performed By: Bianca Dewey RDCS
== END | disposition home or self-care (01) ==
LOC: CVS 08:46
PROVIDERS: PCP Obstetrics & Gynecology Gynecologic Oncology; Referring Provider Obstetrics & Gynecology Gynecologic Oncology; Visit Provider Obstetrics & Gynecology Gynecologic Oncology
DX: Z01.818 Encounter for other preprocedural examination (principal); C54.1 Malignant neoplasm of endometrium
CPT/HCPCS: 93308; 93356

== ENCOUNTER → 2024-04-02 | Outpatient (CLI) | payer MEDICARE, OTHER, SELFPAY ==
--- NOTE | 2024-04-02 09:00 | PET_ITS ---
EXAMINATION: FDG PET-CT INDICATIONS: A 73-year-old female with history of endometrial carcinoma presenting for restaging examination. COMPARISON EXAMINATION: FDG PET study dated 10/03/23 INDEX LESION SIZE SUV INTERPRETATION Mid abdominal retroperitoneum left of the midline 12.1-mm 9.0 Fulfills quantitative criteria for viable neoplasm Heterogeneous soft tissues right shoulder 22.4-mm (largest) 3.5 (max) Warrants further investigation with magnetic resonance imaging TECHNIQUE: Following the intravenous administration of 13.62 mCi of F-18 deoxyglucose via the left antecubital fossa, multiplanar image acquisitions of the neck, chest, abdomen and pelvis to level of mid thigh, obtained at one hour post radiopharmaceutical administration contemporaneously interpreted with the current CT of the neck, chest, abdomen and pelvis, to level of mid thigh, dated 04/02/24 via coregistration and FDG PET study dated 10/03/23 reveals: BLOOD GLUCOSE LEVEL:?? 97 mg/dl?HEIGHT:?63 inches?WEIGHT: 150 lbs. FINDINGS: HEAD/NECK: There is no evidence of abnormal increased glucose metabolism in the pharyngeal mucosal space, parapharyngeal space, bilateral-lateral and anterior neck, hypopharynx and distribution of the laryngeal structures. The visualized portion of the cerebral cortical-subcortical structures demonstrate symmetric and preserved glucose metabolism. CHEST: There is no quantitative scintigraphic evidence of abnormal increased glucose metabolism within the context of the bilateral hemithorax pulmonary parenchyma, right and left hemithorax pleural interface, mediastinal structures and right-left thoracic perihilum. Previously defined morphologic-anatomic changes noted on review of CT of the chest dated 10/03/23, are essentially unchanged on the current examination. ABDOMEN/PELVIS: Facilitated FDG concentration is noted in the mid abdominal retroperitoneum to the left of the midline in the region of the lateral aortic lymph node basin. The calculated maximal standard uptake value is 9.0. The maximal axial diameter of the corresponding soft tissue density is 12.1-mm. Normal physiologic distribution of the radiopharmaceutical is apparent in the hepatic (3.2) and splenic parenchyma, both renal units, bladder and visualized intestinal tract. Review of CT of the abdomen and pelvis dated 10/03/23 demonstrates no significant interval change. SKELETAL: Degenerative changes are noted in the cervical, thoracic and lumbar spine without evidence of increased radiopharmaceutical concentration. Facilitated uptake is noted in the soft tissues of the right shoulder articulation. The calculated maximal standard uptake value is 3.5. The maximal axial diameter of the most conspicuous metabolic, morphologic abnormality is 22.4-mm. PET/PET/CT Tumor Base -Thigh Subs IMPRESSION: 1. ABNORMAL EXAMINATION INDICATIVE OF MALIGNANT VIABLE NEOPLASM. 2. Enhanced tracer uptake noted in the mid abdominal retroperitoneum to the left of the midline fulfills quantitative criteria for viable neoplasm. 3. Increased glucose metabolism newly visualized in the region of the right shoulder warrants further investigation with magnetic resonance imaging. Electronic Signature Sunday Granados D.O. Accurate Quantification of SUVs for this report are calculated using the exclusive [employer]. ([place] Patent No. [id number] B2 [phone] [place] patent [phone]). Standardization and correction of the FDG SUV metric via [employer] technology allow for vendor non-specific objective quantitative examination comparison and optimization of the sensitivity and specificity of the FDG PET-CT examination. [email or web address] Electronically Signed: Sunday Granados DO at 7:36 EST ,
== END | disposition home or self-care (01) ==
LOC: ONC 08:48
PROVIDERS: PCP Obstetrics & Gynecology Gynecologic Oncology; Referring Provider Obstetrics & Gynecology Gynecologic Oncology; Visit Provider Obstetrics & Gynecology Gynecologic Oncology
DX: C67.4 Malignant neoplasm of posterior wall of bladder (principal)
CPT/HCPCS: 78815; A9552

== ENCOUNTER 2024-05-22 11:17 | Outpatient (RCR) | payer MEDICARE, OTHER, SELFPAY ==
[2024-05-15 11:40] LABS: Absolute Neutrophil Count 2.5 X10^3/uL (2.0-7.7); Basophil# 0.03 X10^3/uL; Basophil% 0.7 % (0-1); Eosinophil# 0.09 X10^3/uL; Eosinophils% 2.2 % (0-5); Hematocrit 35.4 % (37-47); Hemoglobin 11.7 g/dL (12.0-15.0); Lymphocyte % 28.8 % (19-41); Mean Corp Hgb Conc 33.1 g/dL (32-36); Mean Corpuscular Hgb 32.6 pg (27.0-32.0); Mean Corpuscular Volume 98.6 fL (81-99); Mean Platelet Vol. 10.2 fl (6.2-12.0); Monocyte# 0.35 X10^3/uL; Monocyte% 8.4 % (0-10); NRBC Flagged by Analyzer 0 % (0-5); Neutrophil # 2.48 X10^3/uL (2.7-7.7); Neutrophil % 59.4 % (47-70); Platelet Count 226 K/mm3 (150-450); RBC Distribution Width CV 12.7 % (11.6-14.6); RBC Distribution Width SD 45.5 fl (35.1-43.9); Red Blood Count 3.59 M/mm3 (4.2-5.4); White Blood Count 4.2 K/mm3 (4.4-11.0)
[2024-05-15 12:03] LABS: ALB/GLOB Ratio 1.1 RATIO (0.9-2.4); AST(SGOT) 22 U/L (15-37); Alanine Aminotransfer ALT/SGPT 22 U/L (13-56); Albumin, Serum 3.9 g/dL (3.2-5.0); Alkaline Phosphatase 104 U/L (45-117); Anion Gap 7 (5-15); BUN 16 mg/dL (7-18); BUN/Creat Ratio 18.9 RATIO (10-20); Calcium,Total 8.8 mg/dL (8.5-10.1); Chloride 105 mmol/L (98-107); Creatinine, Serum 0.85 mg/dL (0.55-1.02); EST Glomerular Filtration Rate 70 mL/min (>60); Est Glom Filt Rate - Afr Amer 85 mL/min (>60); Globulin 3.6 g/dL (2.2-4.2); Glucose 101 mg/dL (74-106); Potassium 3.9 mmol/L (3.5-5.1); Protein, Total 7.5 g/dL (6.4-8.2); Sodium Level 139 mmol/L (136-145)
[2024-05-16 04:07] LABS: Cancer Antigen 125 13.3 U/mL (0.0-38.1)
== END 2024-05-24 23:59 ==
LOC: PAVLAB 11:17
PROVIDERS: PCP Obstetrics & Gynecology Gynecologic Oncology; Referring Provider Nurse Practitioner Adult Health; Visit Provider Nurse Practitioner Adult Health
DX: C54.1 Malignant neoplasm of endometrium (principal); Z79.899 Other long term (current) drug therapy; R94.6 Abnormal results of thyroid function studies; R79.89 Other specified abnormal findings of blood chemistry
CPT/HCPCS: 36415; 80053; 84439; 84443; 85025; 86304

== ENCOUNTER 2024-06-06 10:59 | Outpatient (RCR) | payer MEDICARE, OTHER, SELFPAY ==
[2024-06-06 11:37] LABS: Absolute Lymphocyte Count 0.95 X10^3/uL (0.83-4.51); Absolute Neutrophil Count 1.6 X10^3/uL (2.0-7.7); Basophil# 0.01 X10^3/uL; Basophil% 0.4 % (0-1); Eosinophil# 0.04 X10^3/uL; Eosinophils% 1.4 % (0-5); Hematocrit 31.1 % (37-47); Hemoglobin 10.5 g/dL (12.0-15.0); Lymphocyte # 0.95 X10^3/ul (0.83-4.51); Lymphocyte % 33.3 % (19-41); Mean Corp Hgb Conc 33.8 g/dL (32-36); Mean Corpuscular Volume 97.8 fL (81-99); Monocyte# 0.29 X10^3/uL; Monocyte% 10.2 % (0-10); NRBC Flagged by Analyzer 0 % (0-5); Neutrophil # 1.55 X10^3/uL (2.7-7.7); Neutrophil % 54.3 % (47-70); Platelet Count 172 K/mm3 (150-450); RBC Distribution Width CV 13.1 % (11.6-14.6); Red Blood Count 3.18 M/mm3 (4.2-5.4); White Blood Count 2.9 K/mm3 (4.4-11.0)
[2024-06-06 12:10] LABS: ALB/GLOB Ratio 1.5 RATIO (0.9-2.4); AST(SGOT) 24 U/L (<=31); Alanine Aminotransfer ALT/SGPT 19 U/L (<=34); Albumin, Serum 4.2 g/dL (3.4-4.8); Alkaline Phosphatase 104 U/L (35-104); Anion Gap 11 (5-15); BUN 18 mg/dL (4-19); BUN/Creat Ratio 20.3 RATIO (10-20); Calcium,Total 8.6 mg/dL (7.6-11.0); Carbon Dioxide 24.6 mmol/L (21.0-32.0); Chloride 102 mmol/L (98-108); Creatinine, Serum 0.89 mg/dL (0.70-1.20); EST Glomerular Filtration Rate 70 (>60); Globulin 2.8 g/dL (2.2-4.2); Glucose 94 mg/dL (70-99); Potassium 4.1 mmol/L (3.3-5.1); Protein, Total 6.9 g/dL (5.9-8.4); Sodium Level 138 mmol/L (133-145); Total Bilirubin 0.32 mg/dL (0.00-1.30)
== END 2024-06-24 23:59 ==
LOC: PAVLAB 10:59
PROVIDERS: PCP Obstetrics & Gynecology Gynecologic Oncology; Referring Provider Nurse Practitioner Adult Health; Visit Provider Nurse Practitioner Adult Health
DX: C54.1 Malignant neoplasm of endometrium (principal); Z79.899 Other long term (current) drug therapy
CPT/HCPCS: 36415; 80053; 84443; 85025

== ENCOUNTER 2024-06-27 11:20 | Outpatient (RCR) | payer MEDICARE, OTHER, SELFPAY ==
[2024-06-27 11:58] LABS: Absolute Lymphocyte Count 0.92 X10^3/uL (0.83-4.51); Absolute Neutrophil Count 1.4 X10^3/uL (2.0-7.7); Basophil# 0.01 X10^3/uL; Basophil% 0.4 % (0-1); Eosinophil# 0.01 X10^3/uL; Eosinophils% 0.4 % (0-5); Hematocrit 30.2 % (37-47); Hemoglobin 10.2 g/dL (12.0-15.0); Lymphocyte # 0.92 X10^3/ul (0.83-4.51); Lymphocyte % 35.5 % (19-41); Mean Corp Hgb Conc 33.8 g/dL (32-36); Mean Corpuscular Hgb 33.6 pg (27.0-32.0); Mean Corpuscular Volume 99.3 fL (81-99); Mean Platelet Vol. 9.8 fl (6.2-12.0); Monocyte# 0.28 X10^3/uL; Monocyte% 10.8 % (0-10); NRBC Flagged by Analyzer 0 % (0-5); Neutrophil # 1.37 X10^3/uL (2.7-7.7); Neutrophil % 52.9 % (47-70); Platelet Count 163 K/mm3 (150-450); RBC Distribution Width CV 14.6 % (11.6-14.6); RBC Distribution Width SD 52.1 fl (35.1-43.9); Red Blood Count 3.04 M/mm3 (4.2-5.4); White Blood Count 2.6 K/mm3 (4.4-11.0)
[2024-06-27 14:11] LABS: ALB/GLOB Ratio 1.4 RATIO (0.9-2.4); AST(SGOT) 25 U/L (<=31); Alanine Aminotransfer ALT/SGPT 19 U/L (<=34); Albumin, Serum 4.2 g/dL (3.4-4.8); Alkaline Phosphatase 108 U/L (35-104); Anion Gap 12 (5-15); BUN 15 mg/dL (4-19); BUN/Creat Ratio 18.5 RATIO (10-20); Calcium,Total 8.7 mg/dL (7.6-11.0); Carbon Dioxide 23.7 mmol/L (21.0-32.0); Chloride 104 mmol/L (98-108); EST Glomerular Filtration Rate 78 (>60); Globulin 2.9 g/dL (2.2-4.2); Glucose 98 mg/dL (70-99); Potassium 4.3 mmol/L (3.3-5.1); Sodium Level 140 mmol/L (133-145)
== END 2024-07-24 23:59 ==
LOC: PAVLAB 11:20
PROVIDERS: PCP Obstetrics & Gynecology Gynecologic Oncology; Referring Provider Nurse Practitioner Adult Health; Visit Provider Nurse Practitioner Adult Health
DX: C54.1 Malignant neoplasm of endometrium (principal); Z79.899 Other long term (current) drug therapy
CPT/HCPCS: 36415; 80053; 84443; 85025

== ENCOUNTER → 2024-07-16 | Outpatient (CLI) | payer MEDICARE, OTHER, SELFPAY ==
[2024-07-16 15:59] LABS: Absolute Lymphocyte Count 1.13 X10^3/uL (0.83-4.51); Absolute Neutrophil Count 1.1 X10^3/uL (2.0-7.7); Basophil# 0.01 X10^3/uL; Basophil% 0.4 % (0-1); Eosinophil# 0.01 X10^3/uL; Eosinophils% 0.4 % (0-5); Hematocrit 28.4 % (37-47); Hemoglobin 9.8 g/dL (12.0-15.0); Lymphocyte # 1.13 X10^3/ul (0.83-4.51); Lymphocyte % 45.4 % (19-41); Mean Corp Hgb Conc 34.5 g/dL (32-36); Mean Corpuscular Hgb 34.5 pg (27.0-32.0); Mean Platelet Vol. 9.6 fl (6.2-12.0); Monocyte# 0.25 X10^3/uL; NRBC Flagged by Analyzer 0 % (0-5); Neutrophil # 1.09 X10^3/uL (2.7-7.7); Neutrophil % 43.8 % (47-70); Platelet Count 142 K/mm3 (150-450); RBC Distribution Width CV 15.9 % (11.6-14.6); RBC Distribution Width SD 57.2 fl (35.1-43.9); Red Blood Count 2.84 M/mm3 (4.2-5.4); White Blood Count 2.5 K/mm3 (4.4-11.0)
[2024-07-16 16:50] LABS: ALB/GLOB Ratio 1.5 RATIO (0.9-2.4); AST(SGOT) 25 U/L (<=31); Alanine Aminotransfer ALT/SGPT 20 U/L (<=34); Albumin, Serum 4.1 g/dL (3.4-4.8); Alkaline Phosphatase 101 U/L (35-104); Anion Gap 11 (5-15); BUN 18 mg/dL (4-19); BUN/Creat Ratio 23.2 RATIO (10-20); Calcium,Total 8.6 mg/dL (7.6-11.0); Carbon Dioxide 24.5 mmol/L (21.0-32.0); Chloride 105 mmol/L (98-108); Creatinine, Serum 0.76 mg/dL (0.70-1.20); EST Glomerular Filtration Rate 84 (>60); Globulin 2.8 g/dL (2.2-4.2); Glucose 97 mg/dL (70-99); Potassium 3.8 mmol/L (3.3-5.1); Protein, Total 6.8 g/dL (5.9-8.4); Sodium Level 140 mmol/L (133-145); Total Bilirubin 0.19 mg/dL (0.00-1.30)
== END | disposition home or self-care (01) ==
PROVIDERS: PCP Obstetrics & Gynecology Gynecologic Oncology; Referring Provider Obstetrics & Gynecology Gynecologic Oncology; Visit Provider Nurse Practitioner Adult Health
DX: C54.1 Malignant neoplasm of endometrium (principal); Z79.899 Other long term (current) drug therapy
CPT/HCPCS: 36415; 80053; 84439; 84443; 85025

== ENCOUNTER 2024-08-07 11:01 | Outpatient (RCR) | payer MEDICARE, OTHER, SELFPAY ==
[2024-08-07 11:20] LABS: Absolute Lymphocyte Count 0.88 X10^3/uL (0.83-4.51); Absolute Neutrophil Count 1.4 X10^3/uL (2.0-7.7); Basophil# 0.01 X10^3/uL; Basophil% 0.4 % (0-1); Eosinophil# 0.03 X10^3/uL; Eosinophils% 1.1 % (0-5); Hematocrit 31.3 % (37-47); Hemoglobin 10.6 g/dL (12.0-15.0); Lymphocyte # 0.88 X10^3/ul (0.83-4.51); Lymphocyte % 33.2 % (19-41); Mean Corp Hgb Conc 33.9 g/dL (32-36); Mean Corpuscular Hgb 35.8 pg (27.0-32.0); Mean Corpuscular Volume 105.7 fL (81-99); Mean Platelet Vol. 9.8 fl (6.2-12.0); Monocyte# 0.33 X10^3/uL; Monocyte% 12.5 % (0-10); NRBC Flagged by Analyzer 0 % (0-5); Neutrophil % 52.8 % (47-70); Platelet Count 241 K/mm3 (150-450); RBC Distribution Width SD 62.4 fl (35.1-43.9); Red Blood Count 2.96 M/mm3 (4.2-5.4); White Blood Count 2.7 K/mm3 (4.4-11.0)
[2024-08-07 11:50] LABS: ALB/GLOB Ratio 1.5 RATIO (0.9-2.4); AST(SGOT) 25 U/L (<=31); Alanine Aminotransfer ALT/SGPT 18 U/L (<=34); Albumin, Serum 4.2 g/dL (3.4-4.8); Alkaline Phosphatase 106 U/L (35-104); Anion Gap 9 (5-15); BUN 15 mg/dL (4-19); BUN/Creat Ratio 19.8 RATIO (10-20); Calcium,Total 8.7 mg/dL (7.6-11.0); Carbon Dioxide 25.3 mmol/L (21.0-32.0); Chloride 105 mmol/L (98-108); Creatinine, Serum 0.77 mg/dL (0.70-1.20); EST Glomerular Filtration Rate 82 (>60); Globulin 2.8 g/dL (2.2-4.2); Glucose 104 mg/dL (70-99); Potassium 4.3 mmol/L (3.3-5.1); Sodium Level 140 mmol/L (133-145); Total Bilirubin 0.34 mg/dL (0.00-1.30)
== END 2024-08-24 23:59 ==
LOC: PAVLAB 11:01
PROVIDERS: PCP Obstetrics & Gynecology Gynecologic Oncology; Referring Provider Nurse Practitioner Adult Health; Visit Provider Nurse Practitioner Adult Health
DX: C54.1 Malignant neoplasm of endometrium (principal); Z79.899 Other long term (current) drug therapy; R94.6 Abnormal results of thyroid function studies
CPT/HCPCS: 36415; 80053; 84439; 84443; 85025

== ENCOUNTER → 2024-09-10 | Outpatient (CLI) | payer MEDICARE, OTHER, SELFPAY ==
--- NOTE | 2024-09-10 08:00 | PET_ITS ---
PROCEDURE: 13.5 09/10/2024 REASON FOR EXAM: 73 y/o wary 2024 PET-CT TECHNIQUE: Following the intravenous administration of radionucleotide, image acquisition on a dedicated PET/CT unit was performed at one hour post injection. A preliminary CT study encompassing the Skull base, neck, chest, abdomen, pelvis, and proximal thighs was performed for purposes of attenuation correction and anatomic localization. The proximal thighs were also included. The patient's blood glucose level was 107 mg/dL (allowable range: 50-180 mg/dL). RADIOPHARMACEUTICAL: mCi 18F-FDG (Fluorodeoxyglucose F18) IV was injected into an access site in the right hand RADIATION DOSE SUMMARY: Effective Dose: Approximately 7 mSv for a standard whole-body PET scan Organ Doses: Varies by organ, with higher doses typically to the bladder, liver, and brain COMPARISON: COMPARISON FROM CT, PET OR OTHER PERTINENT EXAMS: . FINDINGS: Physiologic uptake: There may be expected metabolic uptake within the brain, tongue and floor of the mouth and larynx/vocal cords, heart, kali (many normal individuals have hilar uptake in less than 3 nodes with mildly avid hilar nodes less than 2.7 SUV), liver and spleen, system, and GI tract and symmetric muscle uptake. FDG AVID AND NON-AVID LESIONS. Reported avid SUV values (g/mL*) are maximum SUV. NECK: There are no significant neck abnormalities. CHEST: Chest wall- There are no significant chest wall abnormalities. Axilla- There are no significant axillary abnormalities. Lung parenchyma- There are no significant lung parenchyma abnormalities. Mediastinum- There are no significant hilar or mediastinal adenopathy. Pleura- There are no significant pleural abnormalities. ABDOMEN: Stomach- No significant abnormalities. Liver- No significant abnormalities. Spleen- No significant abnormalities. Pancrease- No significant abnormalities. Kidneys- No significant abnormalities. Bowel- Normal bowel activity. Spine- No significant abnormalities. FDG concentration in the mid-abdominal retroperitoneum to the left of the midline in the region of the lateral aortic lymph node basin was noted on the previous exam. It is no longer seen. The left ureter is nearby and normal physiologic excretion is seen in the left ureter. PELVIS: Bowel- Normal physiologic bowel activity is identified. Masses- There are no pelvic masses. LOWER EXTREMITIES: Bones- With the use of bone window settings, there are no osteolytic or osteoblastic lesions. There are no FDG avid lesions within the visualized portion of the axial skeleton. PET/PET/CT Tumor Base -Thigh Subs IMPRESSION: FDG avid- No significant avid lesions. Suspicious- No significant suspicious abnormalities. Previously reported right aortic lymph node uptake is not identified on today's study Non-FDG avid- No non-FDG avid cysts. Other: No additional comments. Please note the low-dose CT scan was performed to facilitate PET image reconstr uction and anatomic localization and does not replace a diagnostic CT. Reading [facility]
== END | disposition home or self-care (01) ==
LOC: ONC 07:53
PROVIDERS: PCP Obstetrics & Gynecology Gynecologic Oncology; Referring Provider Nurse Practitioner Adult Health; Visit Provider Nurse Practitioner Adult Health
DX: C54.1 Malignant neoplasm of endometrium (principal)
CPT/HCPCS: 78815; A9552

== ENCOUNTER 2025-03-04 07:15 | Outpatient (CLI) | payer MEDICARE, OTHER, SELFPAY ==
--- OUTSIDE RECORDS SUMMARY | 2025-03-04 07:22 | XMS RPT_ITS | CCD ---
Author Organization [facility] Care Team Providers Care Slitter Helper Name Role Phone Jose L Wiseman Primary Care Provider Dr. Jose L Wiseman Primary Care Provider [phone] Dr. Jose L Wiseman Referring Provider [phone] Dr. Arielle Sol Attending Provider Dr. Harrison Ignacio Attending Provider Dr. Jose L Wiseman Primary Care Provider [phone] Dr. Jose L Wiseman Referring Provider [phone] Dr. Jose L Wiseman Primary Care Provider [phone] Dr. Jose L Wiseman Referring Provider [phone] Dr. Harrison Ignacio Attending Provider Dr. Arielle Sol Attending Provider Dr. Jose L Wiseman Primary Care Provider [phone] Dr. Jose L Wiseman Referring Provider [phone] Dr. Harrison Ignacio Attending Provider Dr. López Navarro Attending Provider Dr. Jose L Wiseman Primary Care Provider [phone] Jose L Wiseman Primary Care Provider Kaiden SIMMONS, Denis Wheeler Unavailable Alvino TOTH, Jeri M Unavailable Unavailable Viki LOGISTICAL ENGINEER - NET MVC DEVELOPER, Ricarda Unavailable Dr. Jose L Wiseman Primary Care Provider Dr. López Navarro Attending Provider Dr. Bala Luu Attending Provider Dr. Jose L Wiseman Referring Provider Dr. Anna White Emergency Provider Dr. Marisa Hay Admit Provider Dr. Marisa Hay Other Provider Dr. Pilo Harrell Attending Provider Unavailable Dr. Pilo Harrell Other Provider Unavailable Dr. Jose L Wiseman Primary Care Provider Oleghmary, Efewongbe B Primary Care Provider Marlon LOGISTICAL ENGINEER - NET MVC DEVELOPER, Lupe Unavailable Olevannesa, Efewongbe B Primary Care Provider Kaiden SIMMONS, Denis Wheeler Unavailable Alvino TOTH, Jeri Bear Unavailable Unavailable Viki LOGISTICAL ENGINEER - NET MVC DEVELOPER, Ricarda Unavailable Marlon LOGISTICAL ENGINEER - NET MVC DEVELOPER, Lupe Unavailable Yi SIMMONS, Era Dias Unavailable Ivone, Efewongbe B Primary Care Provider Dr. Jose L Wiseman Primary Care Provider Dr. Bala Luu Attending Provider Yi SIMMONS, Era Dias Unavailable Ivone, Efewongbe B Primary Care Provider Viki LOGISTICAL ENGINEER - NET MVC DEVELOPER, Ricarda Unavailable Sharon SIMMONS, Mary Primary Care Provider Dr. Jose L Wiseman Primary Care Provider Dr. Rishi Gonzalez Attending Provider Kaiden SIMMONS, Denis Wheeler Unavailable Denis Richey MD Unavailable Jonathan SIMMONS, Baudilio Velásquez Unavailable Dr. Rishi Gonzalez Attending Provider Dr. Denis Richey Primary Care Provider Katarzyna SIMMONS, Kavon Primary Care Provider Vira LOGISTICAL ENGINEER - NET MVC DEVELOPER, Renay Hull Unavailable Yvonne Paniagua Primary Care Provider Katarzyna SIMMONS, Kavon Primary Care Provider Alex DUMONT - NET MVC DEVELOPER, Rosie Unavailable Kaiden SIMMONS, Dr. Barrios Primary Care Provider [phone] Kaiden SIMMONS, Dr. Barrios Attending Provider [phone] Dr. Denis Richey MD Referring Provider Carlos SIMMONS, Dr. Blackwell Attending Provider Rosie Lara Attending Provider Rosie Lara Referring Provider Kaiden SIMMONS, Dr. Barrios Primary Care Provider Kaiden SIMMONS, Dr. Barrios Referring Provider [phone] Denis Richey Referring Unavailable Denis Richey Attending Unavailable Kaiden, Denis Primary Care Unavailable Denis Richey Referring Unavailable Denis Richey Attending Unavailable Denis Richey Primary Care Unavailable Kaiden, Denis Primary Care Unavailable Carlos, Rishi Attending Unavailable CarlosMirza hensonril Attending Unavailable Kaiden, Denis Primary Care Unavailable Kaiden, Denis Primary Care Unavailable Carlos, Rishi Attending Unavailable Kaiden, Denis Primary Care Unavailable Carlos, Lula Attending Unavailable Denis Richey Referring Unavailable Denis Richey Attending Unavailable Richey, Denis Primary Care Unavailable Denis Richey Referring Unavailable Denis Richey Attending Unavailable Kaiden, Denis Primary Care Unavailable RicheyDenis mann Primary Care Unavailable RicheyCosmeDenis Referring Unavailable Rosie Fuller Attending Unavailable MARLONMARIOE Attending Unavailable Denis Richey Primary Care Unavailable MARLON, LUPE Referring Unavailable Denis Richey Primary Care Unavailable Fuller, Rosie Attending Unavailable Fuller, Rosie Referring Unavailable Kaiden Denis Primary Care Unavailable Fuller, Rosie Attending Unavailable Fuller, Rosie Referring Unavailable Kaiden Denis Primary Care Unavailable Fuller, Rosie Attending Unavailable Fuller, Rosie Referring Unavailable Richey, Denis Primary Care Unavailable Fuller, Rosie Attending Unavailable Fuller, Rosie Referring Unavailable Fuller, Rosie Attending Unavailable Fuller, Rosie Referring Unavailable Denis Richey Primary Care Unavailable MARLON, LUPE Referring Unavailable MARLON, LUPE Attending Unavailable RicheyDenis Primary Care Unavailable Alex, Rosie Referring Unavailable Alex, Rosie Attending Unavailable Denis Richey Primary Care Unavailable Viki LOGISTICAL ENGINEER - NET MVC DEVELOPER, Ricarda Unavailable Marlon LOGISTICAL ENGINEER - NET MVC DEVELOPER, Lupe Unavailable Lucas LOGISTICAL ENGINEER - NET MVC DEVELOPER, Renay D Unavailable Fuller LOGISTICAL ENGINEER - NET MVC DEVELOPER, Rosie Unavailable Branch LOGISTICAL ENGINEER - NET MVC DEVELOPER, Renay D Unavailable DENIS RICHEY Referring Unavailable DENIS RICHEY Attending Unavailable IRAIFF, YVONNE Primary Care Unavailable DENIS RICHEY Attending Unavailable DENIS RICHEY Referring Unavailable COLÓN, KAVON Primary Care Unavailable DENIS RICHEY Attending Unavailable DENIS RICHEY Referring Unavailable COLÓN, KAVON Primary Care Unavailable DENIS RICHEY Referring Unavailable JOLLIFF, YVONNE Primary Care Unavailable DENIS RICHEY Attending Unavailable DENIS RICHEY Referring Unavailable JOLLIFF, YVONNE Primary Care Unavailable DENIS RICHEY Attending Unavailable COLÓN, KAVON Primary Care Unavailable DENIS RICHEY Referring Unavailable DENIS RICHEY Attending Unavailable JOLLIFF, VYONNE Primary Care Unavailable JOLLIFF, YVONNE Primary Care Unavailable ROSIE FULLER Attending Unavailable DENIS RICHEY Referring Unavailable DENIS RICHEY Attending Unavailable JOLLIFF, YVONNE Primary Care Unavailable DENIS RICHEY Referring Unavailable DENIS RICHEY Attending Unavailable JOLLIFF, YVONNE Primary Care Unavailable DENIS RICHEY Attending Unavailable DENIS RICHEY Referring Unavailable COLÓN, KAVON Primary Care Unavailable JOLLIFF, YVONNE Primary Care Unavailable DENIS RICHEY Attending Unavailable DENIS RICHEY Attending Unavailable DENIS RICHEY Referring Unavailable JOLLIFF, YVONNE Primary Care Unavailable JOLLIFF, YVONNE Primary Care Unavailable ANKUR, REANY Hull Attending Unavailable JOLLIFF, YVONNE Primary Care Unavailable DENIS RICHEY Attending Unavailable JOLLIFF, YVONNE Primary Care Unavailable ROSIE FULLER Attending Unavailable DENIS RICHEY Attending Unavailable COLÓN, KAVON Primary Care Unavailable DENIS RICHEY Attending Unavailable KATARZYNA, [facility] Primary Care Unavailable DENIS RICHEY Attending Unavailable DENIS RICHEY Admitting Unavailable JOLLIFF, YVONNE Primary Care Unavailable DENIS RICHEY Attending Unavailable DENIS RICHEY Referring Unavailable JOLLIFF, YVONNE Primary Care Unavailable Katarzyna SIMMONS, [facility] Provider Allergies Allergy Classification Reported Allergen(s) Allergy Type Date of Onset Reaction(s) Facility PACLitaxel (1 source) PACLitaxel Drug Allergy 1 [facility] Quinolones (antibiotic) (1 source) levoFLOXacin Drug Allergy 1 [facility] (20 sources) levoFLOXacin Drug Allergy 1 abdominal pain [facility] Work Phone: (20 sources) CARBOplatin Drug Allergy 2 [facility] Comment on above: Despite premedicatio n with steroids, H1 and H2 blockers (20 sources) Hyaluronidase Drug Allergy 1 [facility] Comment on above: Despite premedicatio n with steroids, H1 and H2 blockers (20 sources) PACLitaxel Drug Allergy 2 [facility] Comment on above: Despite premedicatio n with steroids, H1 and H2 blockers (20 sources) trastuzumab Drug Allergy 2 [facility] Comment on above: Despite premedicatio n with steroids, H1 and H2 blockers (20 sources) PACLitaxel Drug Allergy 1 [facility] (16 sources) CARBOplatin Drug Allergy 1 [facility] (16 sources) trastuzumab Drug Allergy 1 [facility] (1 source) CARBOplatin Drug Allergy 3 [facility] Repository (1 source) Hyaluronidase Drug Allergy 3 [facility] (1 source) levoFLOXacin Drug Allergy 3 [facility] Rep[facility] (1 source) PACLitaxel Drug Allergy 3 [facility] Repository (1 source) trastuzumab-oysk Drug allergy (disorder) 3 [facility] Repository Medications Current Medications Medication Drug Class(es) Dates Sig (Normalized) Sig (Original) acetaminophen 500 mg oral tablet (13 sources) Start: 04-17-2024 End: 04-27-2024 take 2 tablets by mouth every six hours as needed for pain acetaminophen (Tylenol Extra Strength) 500 MG tablet Take 2 tablets (1,000 mg) by mouth every 6 hours as needed for mild pain (1-3) for up to 10 days. 30 tablet 04/17/2024 11:48 AM EST 04/17/2024 04/27/2024 Active Start: 04-16-2024 End: 04-17-2024 take 1 tablet by mouth every eight hours 1,000 mg, Oral, Every 8 hours, First dose on Mon04/16/24 at 2200, Maximum dose of acetaminophen is 4000 mg from all sources in 24 hours. Start: 04-16-2024 End: 04-16-2024 take 1000 mg by mouth once, then take 4000 mg by mouth every twenty-four hours 1,000 mg, Oral, Once, On Mon04/16/24 at 1215, For 1 dose, Preprocedure, Maximum dose of acetaminophen is 4000 mg from all sources in 24 hours. Do not administer if patient has taken tylenol Start: 04-04-2022 End: 04-04-2022 acetaminophen (Tylenol) tabl et 650 mg ascorbic acid 500 mg oral tablet (20 sources) Vitamin C Start: 01-07-2021 take 1 tablet by mouth once daily Ascorbic Acid (Vitamin C) (Vitamin C) 500 mg Tablet Active 500 mg PO DAILY January 07, 2021 12:00am End: 02-24-2023 ascorbic acid (Vitamin C) 50 0 mg chewable tablet Chew 500 mg daily. 0 02/24/2023 Discontinued (Therapy completed) take 1 tablet by dav th once daily ascorbic acid (VITAMIN C) 500 MG tablet Take 500 mg by mouth daily 0 Active B Iyaeavz-B-Wrqpjwf (B-COMPLEX/VITAMIN C, W/ CA, PO) (20 sources) Start: 01-07-2021 B Cggqiwe-M-Zx lcium (B-COMPLEX/VITAMIN C, W/ CA, PO) Take by mouth. 01/07/2021 Active Start: 01-07-2021 B Ljazjjh-Z-Vy lcium (B-COMPLEX/VITAMIN C, W/ CA, PO) Take by mouth. 0 01/07/2021 Active B-Complex With Vitamin C (10 sources) Start: 01-07-2021 take 1 tablet by mouth once daily B-Complex With Vitamin C Active 1 TABLET PO DAILY January 06, 2021 11:00pm Start: 01-07-2021 take 1 tablet by dav th once daily B-Complex With Vitamin C Active 1 TABLET PO DAILY January 07, 2021 12:00am B-Complex With Vitamin C (Vitamin B Complex-8) Tablet (10 sources) Start: 01-07-2021 take 1 tablet by mouth once daily B-Complex With Vitamin C (Vitamin B Complex-8) Tablet Active 1 TABLET PO DAILY January 07, 2021 9:14am Start: 01-07-2021 take 1 tablet by dav th once daily B-Complex With Vitamin C (Vitamin B Complex-8) Tablet Active 1 TABLET PO DAILY January 06, 2021 11:00pm Start: 01-07-2021 take 1 tablet by dav th once daily B-Complex With Vitamin C (Vitamin B Complex-8) Tablet Active 1 TABLET PO DAILY January 07, 2021 12:00am B-Complex With Vitamin C Tablet (4 sources) Start: 01-07-2021 B-Complex With Vitamin C Tablet Active 1 {tbl} PO DAILY January 07, 2021 12:00am cefdinir 300 mg oral capsule (14 sources) Cephalosporin Antibacterial Start: 07-02-2022 take 1 capsule by mouth twice daily Cefdinir 300 mg capsule Active 300 mg PO TWICE A DAY July 02, 2022 12:00am cetirizine hydrochloride 10 mg oral capsule (5 sources) Histamine-1 Receptor Antagonist Start: 11-09-2021 take 1 capsule by mouth once daily Cetirizine (Zyrtec) 10 mg capsule Active 10 MG PO DAILY November 09, 2021 12:00am cholecalciferol 0.025 mg oral capsule (20 sources) Vitamin D Start: 06-19-2020 take 1 capsule by mouth once daily Cholecalciferol (Vitamin D3) 25 mcg (1,000 unit) capsule Active 25 ug PO DAILY June 19, 2020 12:00am End: 12-02-2022 take 1 tablet by mouth once daily cholecalciferol (Vitamin D-3) 25 MCG (1000 UT) tablet Take 1,000 Units by mouth daily. 0 12/02/2022 Discontinued (Therapy completed) vitamin D (KING CALCIFEROL) 25 MCG (1000 UT) TABS tablet Take 1,000 Units by mouth daily 0 Active [id number] 0.3 ml EPINEPHrine 1 mg/ml auto-injector (5 sources) alpha-Adrenergic Agonist, beta-Adrenergic Agonist, Catecholamine Start: 11-09-2021 Epinephrine Activ e 0.3 MG IM Q10M November 09, 2021 12:00am for 2 doses Hydrocortisone 2.5%/Lidocaine 5% Suppository (Cmpd) (9 sources) Start: 01-05-2021 Hydrocortisone 2.5%/Lidocaine 5% Suppository (Cmpd) Active 0 .ROUTE .MEDSUPPLY January 05, 2021 9:44am As directed Start: 01-05-2021 Hydrocortisone 2.5%/Lidocaine 5% Suppository (Cmpd) Active 0 .ROUTE .MEDSUPPLY January 04, 2021 11:00pm As directed Start: 01-05-2021 Hydrocortisone 2.5%/Lidocaine 5% Suppository (Cmpd) Active 0 .ROUTE .MEDSUPPLY January 05, 2021 12:00am As directed inulin 2000 mg chewable tablet (9 sources) Start: 04-01-2021 take 1 tablet by mouth once daily Inulin (Fiber Gummies) 2 gram tablet,chewable Active 2 GM PO DAILY April 01, 2021 1:00am Multiple Vitamin (MULTIVITAMIN ADULT PO) (1 source) take 1 tablet by mouth once daily Multiple Vitamin (MULTIVITAMIN ADULT PO) Take 1 tablet by mouth daily 0 Active Multivitamin preparation (20 sources) Start: 06-19-2020 take 1 tablet by mouth once daily Multivitamin Active 1 TABLET PO DAILY June 19, 2020 10:36am Start: 06-19-2020 take 1 tablet by dav th once daily Multivitamin Active 1 TABLET PO DAILY June 18, 2020 11:00pm Start: 06-19-2020 take 1 tablet by dav th once daily Multivitamin Active 1 TABLET PO DAILY June 19, 2020 12:00am Multivitamin tablet (4 sources) Start: 06-19-2020 Multivitamin t ablet Active 1 {tbl} PO DAILY June 19, 2020 12:00am multivitamin with minerals (Cerovite) 18-400 mg-mcg tablet tablet (20 sources) take 1 tablet by mouth once daily multivitamin with minerals (Cerovite) 18-400 mg-mcg tablet tablet Take 1 tablet by mouth daily. Active take 1 tablet by mouth once estrada y multivitamin with minerals (Cerovite) 18-400 mg-mcg tablet tablet Take 1 tablet by mouth daily. 0 Active ondansetron 8 mg oral tablet (20 sources) Serotonin-3 Receptor Antagonist Start: 05-08-2024 take 1 tablet by mouth every eight hours as needed for nausea ondansetron (Zofran) 8 MG tablet Indications: Endometrial cancer (HCC) Take 1 tablet (8 mg) by mouth every 8 hours as needed for nausea or vomiting. 20 tablet 2 05/08/2024 Active Start: 03-29-2022 End: 12-02-2022 take 1 tablet by mouth every eight hours as needed for nausea ondansetron (Zofran) 8 MG tablet Indications: Endometrial cancer (CMS/HCC) (HCC) Take 1 tablet (8 mg) by mouth every 8 hours as needed for nausea or vomiting for up to 7 days. 20 tablet 0 03/29/2022 04/05/2022 Active oxyCODONE hydrochloride 5 mg oral tablet (5 sources) Opioid Agonist Start: 04-17-2024 End: 04-22-2024 take 1 tablet by mouth every six hours as needed for pain oxyCODONE (Roxicodone) 5 MG immediate release tablet Indications: Postoperative state Take 1 tablet (5 mg) by mouth every 6 hours as needed for severe pain (7-10) for up to 5 days. 15 tablet 04/17/2024 11:48 AM EST 04/17/2024 04/22/2024 Active Start: 04-16-2024 End: 04-17-2024 take 1 tablet by mouth every four hours as needed for pain oxyCODONE (Roxicodone) immediate release tablet 5 mg predniSONE 20 mg oral tablet (5 sources) Start: 11-09-2021 take 40 mg by mouth once daily Prednisone Active 40 MG PO DAILY November 09, 2021 12:00am prochlorperazine 10 mg oral tablet (20 sources) Phenothiazine Start: 05-08-2024 take 1 tablet by mouth every six hours as needed for nausea prochlorperazine (Compazine) 10 MG tablet Indications: Endometrial cancer (HCC) Take 1 tablet (10 mg) by mouth every 6 hours as needed for nausea or vomiting. 30 tablet 2 05/08/2024 Active End: 12-02-2022 take 1 tablet by mouth every six hours as needed for nausea prochlorperazine (Compazine) 10 MG tablet Indications: Endometrial cancer (CMS/HCC) (HCC) Take 1 tablet (10 mg) by mouth every 6 hours as needed for nausea or vomiting. 30 tablet 2 12/02/2022 Discontinued (Therapy completed) saccharomyces boulardii 250 mg oral capsule (20 sources) take 1 capsule by mouth twice daily saccharomyces boulardii (Florastor) 250 MG capsule Take 250 mg by mouth 2 times daily. Active thioctic acid 200 mg oral capsule (20 sources) Start: 07-01-2022 take 1 capsule by mouth once daily Alpha Lipoic Acid 200 mg Capsule Active 200 mg PO DAILY July 01, 2022 12:00am Alpha-Lipoic Aci d 600 MG capsule Take by mouth daily. Active Completed/Discontinued Medications Medication Drug Class(es) Dates Sig (Normalized) Sig (Original) albumin-bound PACLitaxel (Abraxane) 337 mg in sodium chloride 0.9 % 67.4 mL chemo IVPB (1 source) Start: 07-29-2022 End: 07-29-2022 albumin-bound PACLitaxel (Abraxane) 337 mg in sodium chloride 0.9 % 67.4 mL chemo IVPB albumin-bound PACLitaxel (Abraxane) 450 mg in sodium chloride 0.9 % 90 mL chemo IVPB (1 source) Start: 06-17-2022 End: 06-17-2022 albumin-bound PACLitaxel (Abraxane) 450 mg in sodium chloride 0.9 % 90 mL chemo IVPB ALPRAZolam 0.25 mg disintegrating oral tablet (2 sources) Benzodiazepine Start: 04-16-2024 End: 04-16-2024 take 0.25 mg by mouth once as needed for anxiety 0.25 mg, Oral, Once PRN, anxiety, Starting on Mon04/16/24 at 1214, For 1 dose, Preprocedure, Please do not administer prior to obtaining consent and / or history and physical. calcium ascorbate 500 mg oral tablet (20 sources) Start: 06-19-2020 End: 08-17-2020 take 1 tablet by mouth once daily Ascorbate Calcium (Vitamin C) 500 mg tablet Discontinued 500 mg PO DAILY June 19, 2020 12:00am August 17, 2020 4:21pm calcium chloride 0.0014 meq/ml / potassium chloride 0.004 meq/ml / sodium chloride 0.103 meq/ml / sodium lactate 0.028 meq/ml injectable solution (2 sources) Start: 04-16-2024 End: 04-16-2024 take 50 mL intravenously every hour 50 mL/hr, IntraVENous, Continuous, Starting on Mon04/16/24 at 1215, Preprocedure, Upon admission to sameday - please start iv if patient does not have iv access. Use 500ml NS for patients on dialysis. CARBOplatin (Paraplatin) 440 mg in sodium chloride 0.9 % 250 mL chemo IVPB (2 sources) Start: 05-20-2022 End: 05-20-2022 CARBOplatin (Paraplatin) 440 mg in sodium chloride 0.9 % 250 mL chemo IVPB CARBOplatin (Paraplatin) 450 mg in sodium chloride 0.9 % 250 mL chemo IVPB (1 source) Start: 06-07-2024 End: 06-07-2024 450 mg (Target AUC = 5), IntraVENous, at 590 mL/hr, Administer over 30 Minutes, Once, On Mon06/07/24 at 1645, For 1 dose, Pharmacy to dose carboplatin AUC=5, Scr=0.89 mg/dl, CrCl=65 ml/min, Dose rounded to 450 mg Hazardous Medication -- Refer to facility policy for handling and disposal. CARBOplatin (Paraplatin) 460 mg in sodium chloride 0.9 % 250 mL chemo IVPB (1 source) Start: 05-17-2024 End: 05-17-2024 460 mg (Target AUC = 5), IntraVENous, at 592 mL/hr, Administer over 30 Minutes, Once, On Mon05/17/24 at 1730, For 1 dose, Pharmacy to dose carboplatin AUC=5, Scr=0.85 mg/dl, CrCl=67.5 ml/min, Dose rounded to 460 mg Hazardous Medication -- Refer to facility policy for handling and disposal. CARBOplatin (Paraplatin) 490 mg in sodium chloride 0.9 % 250 mL chemo IVPB (8 sources) Start: 06-28-2024 End: 06-28-2024 490 mg (Target AUC = 5), IntraVENous, at 598 mL/hr, Administer over 30 Minutes, Once, On Mon06/28/24 at 1515, For 1 dose, Pharmacy to dose carboplatin AUC=5, Scr=0.8 mg/dl, CrCl=74 ml/min, Dose rounded to 490 mg Hazardous Medication -- Refer to facility policy for handling and disposal. Start: 06-17-2022 End: 06-17-2022 CARBOplatin (Paraplatin) 490 mg in sodium chloride 0.9 % 250 mL chemo IVPB Start: 04-04-2022 End: 04-04-2022 CARBOplatin (Paraplatin) 490 mg in sodium chloride 0.9 % 250 mL chemo IVPB CARBOplatin (Paraplatin) 500 mg in sodium chloride 0.9 % 250 mL chemo IVPB (1 source) Start: 07-29-2022 End: 07-29-2022 CARBOplatin (Paraplatin) 500 mg in sodium chloride 0.9 % 250 mL chemo IVPB CARBOplatin (Paraplatin) 510 mg in sodium chloride 0.9 % 250 mL chemo IVPB (2 sources) Start: 04-29-2022 End: 04-29-2022 CARBOplatin (Paraplatin) 510 mg in sodium chloride 0.9 % 250 mL chemo IVPB Dexamethasone (20 sources) Corticosteroid Start: 06-28-2024 End: 06-28-2024 8 mg, IntraVENous, at 150 mL/hr, Administer over 20 Minutes, Once, On Mon06/28/24 at 1115, For 1 dose, In sodium chloride 0.9% 50 ml IVPB. Over 20 minutes. premix bag Start: 06-07-2024 End: 06-07-2024 8 mg, IntraVENous, at 150 mL /hr, Administer over 20 Minutes, Once, On Mon06/07/24 at 1245, For 1 dose, In sodium chloride 0.9% 50 ml IVPB. Over 20 minutes. premix bag Start: 05-17-2024 End: 05-17-2024 12 mg, IntraVENous, at 150 m L/hr, Administer over 20 Minutes, Once, On Mon05/17/24 at 1330, For 1 dose, In sodium chloride 0.9% 50 ml IVPB. Over 20 minutes. premix bag Start: 03-29-2022 End: 12-02-2022 take 5 tablets by mouth every twelve hours dexAMETHasone (Decadron) 4 MG tablet Indications: Endometrial cancer (CMS/HCC) (HCC) Take 5 tablets po 12 hours and 6 hours prior to each chemo. 10 tablet 3 03/29/2022 12/02/2022 Discontinued (Alternate therapy) dexAMETHasone (Decadron) 12 mg in sodium chloride 0.9 % 50 mL IVPB (12 sources) Start: 07-29-2022 End: 07-29-2022 dexAMETHasone (Decadron) 12 mg in sodium chloride 0.9 % 50 mL IVPB Start: 06-17-2022 End: 06-17-2022 dexAMETHasone (Decadron) 12 mg in sodium chloride 0.9 % 50 mL IVPB Start: 05-20-2022 End: 05-20-2022 dexAMETHasone (Decadron) 12 mg in sodium chloride 0.9 % 50 mL IVPB Start: 04-29-2022 End: 04-29-2022 dexAMETHasone (Decadron) 12 mg in sodium chloride 0.9 % 50 mL IVPB Start: 04-04-2022 End: 04-04-2022 dexAMETHasone (Decadron) 12 mg in sodium chloride 0.9 % 50 mL IVPB diphenhydrAMINE (BENADryl) 25 mg in sodium chloride 0.9 % 50 mL IVPB (6 sources) Start: 04-04-2022 End: 04-04-2022 diphenhydrAMINE (BENADryl) 25 mg in sodium chloride 0.9 % 50 mL IVPB diphenhydrAMINE (BENADryl) 25 mg, famotidine (Pepcid) 20 mg in sodium chloride 0.9 % 50 mL IVPB (6 sources) Start: 04-04-2022 End: 04-04-2022 diphenhydrAMINE (BENADryl) 25 mg, famotidine (Pepcid) 20 mg in sodium chloride 0.9 % 50 mL IVPB diphenhydrAMINE (BENADryl) 50 mg, famotidine (Pepcid) 20 mg in sodium chloride 0.9 % 50 mL IVPB (2 sources) Start: 04-29-2022 End: 04-29-2022 diphenhydrAMINE (BENADryl) 50 mg, famotidine (Pepcid) 20 mg in sodium chloride 0.9 % 50 mL IVPB docusate sodium 100 mg oral capsule (20 sources) Start: 04-17-2024 End: 05-17-2024 take 1 capsule by mouth twice daily docusate sodium (Colace) 100 MG capsule Take 1 capsule (100 mg) by mouth 2 times daily. 60 capsule 04/17/2024 11:48 AM EST 04/17/2024 05/17/2024 End: 12-02-2022 take 1 capsule by mouth once daily Docusate Sodium (DSS) 100 MG capsule Take 100 mg by mouth daily. 0 12/02/2022 Discontinued (Therapy completed) docusate sodium 50 mg / sennosides, senior care 8.6 mg oral tablet (2 sources) Start: 04-16-2024 End: 04-17-2024 take 2 tablets by mouth every twenty-four hours as needed for constipation fosaprepitant (Emend) 150 mg in sodium chloride 0.9 % 250 mL IVPB (15 sources) Start: 06-28-2024 End: 06-28-2024 150 mg, IntraVENous, at 500 mL/hr, Administer over 30 Minutes, Once, On Mon06/28/24 at 1115, For 1 dose, Administer 30 minutes prior to chemotherapy. Start: 06-07-2024 End: 06-07-2024 150 mg, IntraVENous, at 500 mL/hr, Administer over 30 Minutes, Once, On Mon06/07/24 at 1245, For 1 dose, Administer 30 minutes prior to chemotherapy. Start: 05-17-2024 End: 05-17-2024 150 mg, IntraVENous, at 500 mL/hr, Administer over 30 Minutes, Once, On Mon05/17/24 at 1330, For 1 dose, Administer 30 minutes prior to chemotherapy. Start: 07-29-2022 End: 07-29-2022 fosaprepitant (Emend) 150 mg in sodium chloride 0.9 % 250 mL IVPB Start: 06-17-2022 End: 06-17-2022 fosaprepitant (Emend) 150 mg in sodium chloride 0.9 % 250 mL IVPB Start: 05-20-2022 End: 05-20-2022 fosaprepitant (Emend) 150 mg in sodium chloride 0.9 % 250 mL IVPB Start: 04-29-2022 End: 04-29-2022 fosaprepitant (Emend) 150 mg in sodium chloride 0.9 % 250 mL IVPB Start: 04-04-2022 End: 04-04-2022 fosaprepitant (Emend) 150 mg in sodium chloride 0.9 % 250 mL IVPB 1 ml HYDROmorphone hydrochloride 1 mg/ml cartridge (2 sources) Opioid Agonist Start: 04-16-2024 End: 04-16-2024 0.25 mg, IntraVENous, Every 5 min PRN, moderate pain (4-6), Starting on Mon04/16/24 at 1423, For 4 doses, Recovery (only), Phase I and Phase II- Initial therapy for moderate pain (4-6). Restricted to a 90 minute time frame starting when the patient can verbally state their pain score. If after 2 doses the pain score does not decrease by more than one point, then call the provider. If oral meds are utilized, do not return to initial therapy medications. ibuprofen 600 mg oral tablet (20 sources) Nonsteroidal Anti-inflammatory Drug Start: 04-17-2024 End: 06-28-2024 take 1 tablet by mouth every six hours ibuprofen 600 MG tablet Take 1 tablet (600 mg) by mouth every 6 hours. 60 tablet 04/17/2024 11:48 AM EST 04/17/2024 06/28/2024 Discontinued Start: 07-16-2020 End: 12-02-2022 ibuprofen 600 MG tablet Take 600 mg by mouth. 0 07/16/2020 12/02/2022 Discontinued (Therapy completed) megestrol acetate 40 mg oral tablet (20 sources) Progestin Start: 06-24-2020 End: 08-10-2020 take 1 tablet by mouth once daily Megestrol 40 mg tablet Discontinued 40 mg PO DAILY June 24, 2020 12:00am August 10, 2020 1:01pm 1 ml naloxone hydrochloride 0.4 mg/ml injection (2 sources) Opioid Antagonist Start: 04-16-2024 End: 04-17-2024 0.4 mg, IntraVENous, Every 5 min PRN, opioid reversal, respiratory depression, Starting on Mon04/16/24 at 1744, +++ For RR ondansetron ODT (Zofran-ODT) disintegrating tablet 4 mg (2 sources) Start: 04-16-2024 End: 04-17-2024 take 1 tablet by mouth every eight hours as needed for nausea and vomiting ondansetron ODT (Zofran-ODT) disintegrating tablet 4 mg PACLitaxel (Taxol) 300 mg in sodium chloride 0.9 % 500 mL chemo IVPB (6 sources) Start: 04-04-2022 End: 04-04-2022 PACLitaxel (Taxol) 300 mg in sodium chloride 0.9 % 500 mL chemo IVPB 5 ml palonosetron 0.05 mg/ml injection (15 sources) Serotonin-3 Receptor Antagonist Start: 06-28-2024 End: 06-28-2024 0.25 mg, IntraVENous, Once, On Mon06/28/24 at 1115, For 1 dose Start: 06-07-2024 End: 06-07-2024 0.25 mg, IntraVENous, Once, On Mon06/07/24 at 1245, For 1 dose Start: 05-17-2024 End: 05-17-2024 0.25 mg, IntraVENous, Once, On Mon05/17/24 at 1330, For 1 dose Start: 07-29-2022 End: 07-29-2022 palonosetron (Aloxi) injecti on 0.25 mg Start: 06-17-2022 End: 06-17-2022 palonosetron (Aloxi) injecti on 0.25 mg Start: 05-20-2022 End: 05-20-2022 palonosetron (Aloxi) injecti on 0.25 mg Start: 04-29-2022 End: 04-29-2022 palonosetron (Aloxi) injecti on 0.25 mg Start: 04-29-2022 End: 04-29-2022 palonosetron (Aloxi) injecti on 0.25 mg Start: 04-04-2022 End: 04-04-2022 palonosetron (Aloxi) injecti on 0.25 mg Start: 04-04-2022 End: 04-04-2022 palonosetron (Aloxi) injecti on 0.25 mg Start: 04-04-2022 End: 04-04-2022 palonosetron (Aloxi) injecti on 0.25 mg Start: 04-04-2022 End: 04-04-2022 palonosetron (Aloxi) injecti on 0.25 mg Start: 04-04-2022 End: 04-04-2022 palonosetron (Aloxi) injecti on 0.25 mg Start: 04-04-2022 End: 04-04-2022 palonosetron (Aloxi) injecti on 0.25 mg 0.6 ml pegfilgrastim 10 mg/ml prefilled syringe (1 source) Leukocyte Growth Factor Start: 07-29-2022 End: 07-29-2022 pegfilgrastim (Neulasta Onpro) injection 6 mg pembrolizumab (Keytruda) 200 mg in sodium chloride 0.9 % 100 mL chemo IVPB (3 sources) Start: 06-28-2024 End: 06-28-2024 200 mg, IntraVENous, at 216 mL/hr, Administer over 30 Minutes, Once, On Mon06/28/24 at 1145, For 1 dose, Final concentration of 1 to 10 mg/mL. Hazardous Waste -- Refer to facility policy for handling and disposal. Infuse through a 0.2 to 5 micron sterile, nonpyrogenic, low-protein binding inline or add-on filter. Do not infuse other medications through the same infusion line. Start: 06-07-2024 End: 06-07-2024 200 mg, IntraVENous, at 216 mL/hr, Administer over 30 Minutes, Once, On Mon06/07/24 at 1315, For 1 dose, Final concentration of 1 to 10 mg/mL. Hazardous Waste -- Refer to facility policy for handling and disposal. Infuse through a 0.2 to 5 micron sterile, nonpyrogenic, low-protein binding inline or add-on filter. Do not infuse other medications through the same infusion line. Start: 05-17-2024 End: 05-17-2024 200 mg, IntraVENous, at 216 mL/hr, Administer over 30 Minutes, Once, On Mon05/17/24 at 1400, For 1 dose, Final concentration of 1 to 10 mg/mL. Hazardous Waste -- Refer to facility policy for handling and disposal. Infuse through a 0.2 to 5 micron sterile, nonpyrogenic, low-protein binding inline or add-on filter. Do not infuse other medications through the same infusion line. pembrolizumab (Keytruda) 400 mg in sodium chloride 0.9 % 100 mL chemo IVPB (7 sources) Start: 01-03-2025 End: 01-03-2025 400 mg, IntraVENous, at 232 mL/hr, Administer over 30 Minutes, Once, On Mon01/03/25 at 1400, For 1 dose, Final concentration of 1 to 10 mg/mL. Hazardous Waste -- Refer to facility policy for handling and disposal. Infuse through a 0.2 to 5 micron sterile, nonpyrogenic, low-protein binding inline or add-on filter. Do not infuse other medications through the same infusion line. Start: 11-22-2024 End: 11-22-2024 400 mg, IntraVENous, at 232 mL/hr, Administer over 30 Minutes, Once, On Mon11/22/24 at 1230, For 1 dose, Final concentration of 1 to 10 mg/mL. Hazardous Waste -- Refer to facility policy for handling and disposal. Infuse through a 0.2 to 5 micron sterile, nonpyrogenic, low-protein binding inline or add-on filter. Do not infuse other medications through the same infusion line. Start: 10-11-2024 End: 10-11-2024 400 mg, IntraVENous, at 232 mL/hr, Administer over 30 Minutes, Once, On Mon10/11/24 at 1430, For 1 dose, Final concentration of 1 to 10 mg/mL. Hazardous Waste -- Refer to facility policy for handling and disposal. Infuse through a 0.2 to 5 micron sterile, nonpyrogenic, low-protein binding inline or add-on filter. Do not infuse other medications through the same infusion line. Start: 08-30-2024 End: 08-30-2024 400 mg, IntraVENous, at 232 mL/hr, Administer over 30 Minutes, Once, On Mon08/30/24 at 1000, For 1 dose, Final concentration of 1 to 10 mg/mL. Hazardous Waste -- Refer to facility policy for handling and disposal. Infuse through a 0.2 to 5 micron sterile, nonpyrogenic, low-protein binding inline or add-on filter. Do not infuse other medications through the same infusion line. Start: 07-19-2024 End: 07-19-2024 400 mg, IntraVENous, at 232 mL/hr, Administer over 30 Minutes, Once, On Mon07/19/24 at 1245, For 1 dose, Final concentration of 1 to 10 mg/mL. Hazardous Waste -- Refer to facility policy for handling and disposal. Infuse through a 0.2 to 5 micron sterile, nonpyrogenic, low-protein binding inline or add-on filter. Do not infuse other medications through the same infusion line. polyethylene glycol 3350 [id number] mg powder for oral solution (2 sources) Osmotic Laxative Start: 04-16-2024 End: 04-17-2024 take 17 g by mouth every twenty-four hours as needed for constipation silver sulfADIAZINE 10 mg/ml topical cream (20 sources) Sulfonamide Antibacterial Start: 04-06-2022 End: 12-02-2022 silver sulfADIAZINE (Silvadene) 1 % cream Indications: Rash Apply topically daily. To rash-type areas. 50 g 3 04/06/2022 12/02/2022 Discontinued (Alternate therapy) 50 ml sodium chloride 9 mg/ml injection (20 sources) Start: 01-03-2025 End: 01-03-2025 take 100 mL intravenously every hour, then take 20 mL intravenously every hour 5-250 mL/hr, IntraVENous, Once PRN, KVO, Starting on Mon01/03/25 at 1346, If patient receiving piggyback infusions and maintenance fluids are not ordered OR KVO fluids to protect IV site/ prevent frequent line interruptions/ long duration For piggyback infusion, administer at same rate as piggyback for a total of 25 mL. Enter 25 mL into dose field and piggyback rate into rate field of order. If piggyback is infusing at a rate less than 100 mL/hr, enter 25 mL into dose field and 100 mL/hr into rate field of order. For KVO fluids, enter rate of 20 mL/hr or less into rate field of order. Start: 10-11-2024 End: 10-11-2024 take 100 mL intravenously every hour, then take 20 mL intravenously every hour 5-250 mL/hr, IntraVENous, Once PRN, KVO, Starting on Mon10/11/24 at 1420, If patient receiving piggyback infusions and maintenance fluids are not ordered OR KVO fluids to protect IV site/ prevent frequent line interruptions/ long duration For piggyback infusion, administer at same rate as piggyback for a total of 25 mL. Enter 25 mL into dose field and piggyback rate into rate field of order. If piggyback is infusing at a rate less than 100 mL/hr, enter 25 mL into dose field and 100 mL/hr into rate field of order. For KVO fluids, enter rate of 20 mL/hr or less into rate field of order. Start: 08-30-2024 End: 08-30-2024 take 100 mL intravenously every hour, then take 20 mL intravenously every hour 5-250 mL/hr, IntraVENous, Once PRN, KVO, Starting on Mon08/30/24 at 0954, If patient receiving piggyback infusions and maintenance fluids are not ordered OR KVO fluids to protect IV site/ prevent frequent line interruptions/ long duration For piggyback infusion, administer at same rate as piggyback for a total of 25 mL. Enter 25 mL into dose field and piggyback rate into rate field of order. If piggyback is infusing at a rate less than 100 mL/hr, enter 25 mL into dose field and 100 mL/hr into rate field of order. For KVO fluids, enter rate of 20 mL/hr or less into rate field of order. Start: 07-19-2024 End: 07-19-2024 take 100 mL intravenously every hour, then take 20 mL intravenously every hour 5-250 mL/hr, IntraVENous, Once PRN, KVO, Starting on Mon07/19/24 at 1209, If patient receiving piggyback infusions and maintenance fluids are not ordered OR KVO fluids to protect IV site/ prevent frequent line interruptions/ long duration For piggyback infusion, administer at same rate as piggyback for a total of 25 mL. Enter 25 mL into dose field and piggyback rate into rate field of order. If piggyback is infusing at a rate less than 100 mL/hr, enter 25 mL into dose field and 100 mL/hr into rate field of order. For KVO fluids, enter rate of 20 mL/hr or less into rate field of order. Start: 06-28-2024 End: 06-28-2024 take 100 mL intravenously every hour, then take 20 mL intravenously every hour 5-250 mL/hr, IntraVENous, Once PRN, KVO, Starting on Mon06/28/24 at 1055, If patient receiving piggyback infusions and maintenance fluids are not ordered OR KVO fluids to protect IV site/ prevent frequent line interruptions/ long duration For piggyback infusion, administer at same rate as piggyback for a total of 25 mL. Enter 25 mL into dose field and piggyback rate into rate field of order. If piggyback is infusing at a rate less than 100 mL/hr, enter 25 mL into dose field and 100 mL/hr into rate field of order. For KVO fluids, enter rate of 20 mL/hr or less into rate field of order. Start: 04-16-2024 End: 04-17-2024 10 mL, IntraVENous, Every 12 hours scheduled (2 times per day), First dose on Mon04/16/24 at 2100, Phase II/On Unit Start: 04-16-2024 End: 04-17-2024 Start: 04-16-2024 End: 04-17-2024 Start: 03-01-2024 End: 03-01-2024 take 100 mL intravenously every hour, then take 20 mL intravenously every hour 5-250 mL/hr, IntraVENous, Once PRN, KVO, Starting on Mon03/01/24 at 1423, If patient receiving piggyback infusions and maintenance fluids are not ordered OR KVO fluids to protect IV site/ prevent frequent line interruptions/ long duration For piggyback infusion, administer at same rate as piggyback for a total of 25 mL. Enter 25 mL into dose field and piggyback rate into rate field of order. If piggyback is infusing at a rate less than 100 mL/hr, enter 25 mL into dose field and 100 mL/hr into rate field of order. For KVO fluids, enter rate of 20 mL/hr or less into rate field of order. Start: 12-15-2023 End: 12-15-2023 take 100 mL intravenously every hour, then take 20 mL intravenously every hour 5-250 mL/hr, IntraVENous, Once PRN, KVO, Starting on Mon12/15/23 at 1322, If patient receiving piggyback infusions and maintenance fluids are not ordered OR KVO fluids to protect IV site/ prevent frequent line interruptions/ long duration For piggyback infusion, administer at same rate as piggyback for a total of 25 mL. Enter 25 mL into dose field and piggyback rate into rate field of order. If piggyback is infusing at a rate less than 100 mL/hr, enter 25 mL into dose field and 100 mL/hr into rate field of order. For KVO fluids, enter rate of 20 mL/hr or less into rate field of order. Start: 11-24-2023 End: 11-24-2023 take 100 mL intravenously every hour, then take 20 mL intravenously every hour 5-250 mL/hr, IntraVENous, Once PRN, KVO, Starting on Mon11/24/23 at 1313, If patient receiving piggyback infusions and maintenance fluids are not ordered OR KVO fluids to protect IV site/ prevent frequent line interruptions/ long duration For piggyback infusion, administer at same rate as piggyback for a total of 25 mL. Enter 25 mL into dose field and piggyback rate into rate field of order. If piggyback is infusing at a rate less than 100 mL/hr, enter 25 mL into dose field and 100 mL/hr into rate field of order. For KVO fluids, enter rate of 20 mL/hr or less into rate field of order. Start: 10-13-2023 End: 10-13-2023 take 100 mL intravenously every hour, then take 20 mL intravenously every hour 5-250 mL/hr, IntraVENous, Once PRN, KVO, Starting on Mon10/13/23 at 1314, If patient receiving piggyback infusions and maintenance fluids are not ordered OR KVO fluids to protect IV site/ prevent frequent line interruptions/ long duration For piggyback infusion, administer at same rate as piggyback for a total of 25 mL. Enter 25 mL into dose field and piggyback rate into rate field of order. If piggyback is infusing at a rate less than 100 mL/hr, enter 25 mL into dose field and 100 mL/hr into rate field of order. For KVO fluids, enter rate of 20 mL/hr or less into rate field of order. Start: 09-22-2023 End: 09-22-2023 take 100 mL intravenously every hour, then take 20 mL intravenously every hour 5-250 mL/hr, IntraVENous, Once PRN, KVO, Starting on Mon09/22/23 at 1314, If patient receiving piggyback infusions and maintenance fluids are not ordered OR KVO fluids to protect IV site/ prevent frequent line interruptions/ long duration For piggyback infusion, administer at same rate as piggyback for a total of 25 mL. Enter 25 mL into dose field and piggyback rate into rate field of order. If piggyback is infusing at a rate less than 100 mL/hr, enter 25 mL into dose field and 100 mL/hr into rate field of order. For KVO fluids, enter rate of 20 mL/hr or less into rate field of order. Start: 09-01-2023 End: 09-01-2023 sodium chloride 0.9 % infusi on Start: 07-21-2023 End: 07-21-2023 sodium chloride 0.9 % infusi on Start: 06-09-2023 End: 06-09-2023 sodium chloride 0.9 % infusi on Start: 04-28-2023 End: 04-28-2023 sodium chloride 0.9 % infusi on Start: 02-24-2023 End: 02-24-2023 sodium chloride 0.9 % infusi on Start: 02-03-2023 End: 02-03-2023 sodium chloride 0.9 % infusi on Start: 01-13-2023 End: 01-13-2023 sodium chloride 0.9 % infusi on Start: 09-08-2022 End: 09-08-2022 sodium chloride 0.9 % infusi on Start: 06-17-2022 End: 06-17-2022 sodium chloride 0.9 % infusi on Start: 04-29-2022 End: 04-29-2022 sodium chloride 0.9 % infusi on Start: 04-04-2022 End: 04-04-2022 sodium chloride 0.9 % infusi on trastuzumab-qyyp (Trazimera) 322 mg in sodium chloride 0.9 % 250 mL chemo IVPB (1 source) Start: 04-28-2023 End: 04-28-2023 trastuzumab-qyyp (Trazimera) 322 mg in sodium chloride 0.9 % 250 mL chemo IVPB trastuzumab-qyyp (Trazimera) 399 mg in sodium chloride 0.9 % 250 mL chemo IVPB (17 sources) Start: 04-07-2023 End: 04-07-2023 trastuzumab-qyyp (Trazimera) 399 mg in sodium chloride 0.9 % 250 mL chemo IVPB Start: 02-24-2023 End: 02-24-2023 trastuzumab-qyyp (Trazimera) 399 mg in sodium chloride 0.9 % 250 mL chemo IVPB Start: 02-03-2023 End: 02-03-2023 trastuzumab-qyyp (Trazimera) 399 mg in sodium chloride 0.9 % 250 mL chemo IVPB Start: 01-13-2023 End: 01-13-2023 trastuzumab-qyyp (Trazimera) 399 mg in sodium chloride 0.9 % 250 mL chemo IVPB Start: 12-23-2022 End: 12-23-2022 trastuzumab-qyyp (Trazimera) 399 mg in sodium chloride 0.9 % 250 mL chemo IVPB Start: 12-02-2022 End: 12-02-2022 trastuzumab-qyyp (Trazimera) 399 mg in sodium chloride 0.9 % 250 mL chemo IVPB Start: 11-11-2022 End: 11-11-2022 trastuzumab-qyyp (Trazimera) 399 mg in sodium chloride 0.9 % 250 mL chemo IVPB Start: 10-21-2022 End: 10-21-2022 trastuzumab-qyyp (Trazimera) 399 mg in sodium chloride 0.9 % 250 mL chemo IVPB Start: 09-08-2022 End: 09-08-2022 trastuzumab-qyyp (Trazimera) 399 mg in sodium chloride 0.9 % 250 mL chemo IVPB Start: 08-19-2022 End: 08-19-2022 trastuzumab-qyyp (Trazimera) 399 mg in sodium chloride 0.9 % 250 mL chemo IVPB Start: 07-29-2022 End: 07-29-2022 trastuzumab-qyyp (Trazimera) 399 mg in sodium chloride 0.9 % 250 mL chemo IVPB Start: 06-17-2022 End: 06-17-2022 trastuzumab-qyyp (Trazimera) 399 mg in sodium chloride 0.9 % 250 mL chemo IVPB Start: 05-20-2022 End: 05-20-2022 trastuzumab-qyyp (Trazimera) 399 mg in sodium chloride 0.9 % 250 mL chemo IVPB Start: 04-29-2022 End: 04-29-2022 trastuzumab-qyyp (Trazimera) 399 mg in sodium chloride 0.9 % 250 mL chemo IVPB trastuzumab-qyyp (Trazimera) 433 mg in sodium chloride 0.9 % 250 mL chemo IVPB (20 sources) Start: 03-29-2024 End: 03-29-2024 take 1 dose intravenously once 433 mg (rounded from 432.6 mg = 6 mg/kg 72.1 kg Order-specific weight), IntraVENous, at 541.2 mL/hr, Administer over 30 Minutes, Once, On Mon03/29/24 at 1515, For 1 dose, DO NOT administer IV PUSH or BOLUS. Trastuzumab-qyyp not compatible with D5W. Hazardous Medication -- Refer to facility policy for handling and disposal. Start: 03-01-2024 End: 03-01-2024 take 1 dose intravenously once 433 mg (rounded from 43 2.6 mg = 6 mg/kg 72.1 kg Order-specific weight), IntraVENous, at 542 mL/hr, Administer over 30 Minutes, Once, On Mon03/01/24 at 1430, For 1 dose, DO NOT administer IV PUSH or BOLUS. Trastuzumab-qyyp not compatible with D5W. Hazardous Medication -- Refer to facility policy for handling and disposal. Start: 02-02-2024 End: 02-02-2024 take 1 dose intravenously once 433 mg (rounded from 43 2.6 mg = 6 mg/kg 72.1 kg Order-specific weight), IntraVENous, at 541.2 mL/hr, Administer over 30 Minutes, Once, On Mon02/02/24 at 1445, For 1 dose, DO NOT administer IV PUSH or BOLUS. Trastuzumab-qyyp not compatible with D5W. Hazardous Medication -- Refer to facility policy for handling and disposal. Start: 12-15-2023 End: 12-15-2023 take 1 dose intravenously once 433 mg (rounded from 43 2.6 mg = 6 mg/kg 72.1 kg Order-specific weight), IntraVENous, at 542 mL/hr, Administer over 30 Minutes, Once, On Mon12/15/23 at 1330, For 1 dose, DO NOT administer IV PUSH or BOLUS. Trastuzumab-qyyp not compatible with D5W. Hazardous Medication -- Refer to facility policy for handling and disposal. Start: 11-24-2023 End: 11-24-2023 take 1 dose intravenously once 433 mg (rounded from 43 2.6 mg = 6 mg/kg 72.1 kg Order-specific weight), IntraVENous, at 542 mL/hr, Administer over 30 Minutes, Once, On Mon11/24/23 at 1315, For 1 dose, DO NOT administer IV PUSH or BOLUS. Trastuzumab-qyyp not compatible with D5W. Hazardous Medication -- Refer to facility policy for handling and disposal. Start: 11-03-2023 End: 11-03-2023 take 1 dose intravenously once 433 mg (rounded from 43 2.6 mg = 6 mg/kg 72.1 kg Order-specific weight), IntraVENous, at 541.2 mL/hr, Administer over 30 Minutes, Once, On Mon11/03/23 at 1415, For 1 dose, DO NOT administer IV PUSH or BOLUS. Trastuzumab-qyyp not compatible with D5W. Hazardous Medication -- Refer to facility policy for handling and disposal. Start: 10-13-2023 End: 10-13-2023 take 1 dose intravenously once 433 mg (rounded from 43 2.6 mg = 6 mg/kg 72.1 kg Order-specific weight), IntraVENous, at 542 mL/hr, Administer over 30 Minutes, Once, On Mon10/13/23 at 1315, For 1 dose, DO NOT administer IV PUSH or BOLUS. Trastuzumab-qyyp not compatible with D5W. Hazardous Medication -- Refer to facility policy for handling and disposal. Start: 09-22-2023 End: 09-22-2023 take 1 dose intravenously once 433 mg (rounded from 43 2.6 mg = 6 mg/kg 72.1 kg Order-specific weight), IntraVENous, at 542 mL/hr, Administer over 30 Minutes, Once, On Mon09/22/23 at 1315, For 1 dose, DO NOT administer IV PUSH or BOLUS. Trastuzumab-qyyp not compatible with D5W. Hazardous Medication -- Refer to facility policy for handling and disposal. Start: 07-21-2023 End: 07-21-2023 trastuzumab-qyyp (Trazimera) 433 mg in sodium chloride 0.9 % 250 mL chemo IVPB Start: 06-30-2023 End: 06-30-2023 trastuzumab-qyyp (Trazimera) 433 mg in sodium chloride 0.9 % 250 mL chemo IVPB Start: 06-09-2023 End: 06-09-2023 trastuzumab-qyyp (Trazimera) 433 mg in sodium chloride 0.9 % 250 mL chemo IVPB trastuzumab-qyyp (Trazimera) 532 mg in sodium chloride 0.9 % 250 mL chemo IVPB (6 sources) Start: 04-04-2022 End: 04-04-2022 trastuzumab-qyyp (Trazimera) 532 mg in sodium chloride 0.9 % 250 mL chemo IVPB trastuzumab-qyyp (Trazimera) 577 mg in sodium chloride 0.9 % 250 mL chemo IVPB (2 sources) Start: 09-01-2023 End: 09-01-2023 trastuzumab-qyyp (Trazimera) 577 mg in sodium chloride 0.9 % 250 mL chemo IVPB Problems Active Problems Problem Classification Problem Date Documented Date Episodic/Chronic Allergic reactions (20 sources) Urticaria; Translations: [Urticaria, unspecified] 11-17-2021 Episodic Cancer of bladder (1 source) Malignant neoplasm of posterior wall of bladder; Translations: [Malignant neoplasm of posterior wall of bladder] Onset: 04-18-2024 Chronic Cancer of uterus (20 sources) Malignant neoplasm of endometrium of corpus uteri ; Translations: [Malignant neoplasm of endometrium] Onset: 07-16-2020 Chronic Cancer of uterus (20 sources) H/O: malignant neoplasm; Translations: [Personal history of malignant neoplasm of other parts of uterus] 07-01-2022 Episodic Coagulation and hemorrhagic disorders (20 sources) Thrombocytopenic disorder; Translations: [Thrombocytopenia, unspecified] 07-01-2022 Chronic Complication of device; implant or graft (20 sources) Disorder of cardiovascular prostheses and implants; Translations: [Other specified complication of vascular prosthetic devices, implants and grafts, initial encounter] Onset: 03-29-2022 03-29-2022 Chronic Diseases of white blood cells (20 sources) Febrile neutropenia; Translations: [Neutropenia, unspecified] 07-01-2022 Chronic Genitourinary symptoms and ill-defined conditions (1 source) Blood in urine; Translations: [Hematuria, unspecified] Episodic Hemorrhoids (20 sources) Hemorrhoids; Translations: [Unspecified hemorrhoids] 03-12-2021 Episodic Maintenance chemotherapy; radiotherapy (20 sources) Patient encounter status; Translations: [Encounter for antineoplastic chemotherapy] Onset: 10-09-2023 Chronic Malaise and fatigue (1 source) Fatigue due to chemotherapy; Translations: [Other fatigue] 06-10-2024 Episodic Menopausal disorders (20 sources) Postmenopausal bleeding; Translations: [Postmenopausal bleeding] 08-06-2020 Chronic Comment on above: EMB pending Nausea and vomiting (1 source) Nausea; Translations: [Nausea] 06-10-2024 Episodic Nutritional deficiencies (3 sources) Vitamin D deficiency; Translations: [Vitamin D deficiency, unspecified] Onset: 11-22-2024 11-22-2024 Chronic Osteoarthritis (20 sources) Osteoarthritis; Translations: [Unspecified osteoarthritis, unspecified site] 06-19-2020 Chronic Other aftercare (20 sources) Drug therapy finding; Translations: [Encounter for therapeutic drug level monitoring] 08-17-2020 Episodic Other aftercare (1 source) Encounter for adjustment and management of vascular access device; Translations: [Fitting and adjustment, other device] Episodic Other bone disease and musculoskeletal deformities (20 sources) Osteopenia; Translations: [Other specified disorders of bone density and structure, unspecified site] 06-19-2020 Episodic Other bone disease and musculoskeletal deformities (1 source) Pain in femur; Translations: [Other specified disorders of bone, thigh] 02-06-2023 Episodic Other circulatory disease (3 sources) Transient hypertension; Translations: [Elevated blood-pressure reading, without diagnosis of hypertension] 01-20-2023 Episodic Other nervous system disorders (2 sources) Neuropathy; Translations: [Drug-induced polyneuropathy] 09-08-2022 Chronic Other non-traumatic joint disorders (5 sources) Hip pain; Translations: [Pain in left hip] 02-03-2023 Episodic Other skin disorders (20 sources) Eruption; Translations: [Rash and other nonspecific skin eruption] 09-14-2020 Episodic Other skin disorders (1 source) Loss of hair; Translations: [Nonscarring hair loss, unspecified] 12-15-2024 Episodic Other skin disorders (2 sources) Nonscarring hair loss, unspecified; Translations: [Nonscarring hair loss, unspecified] Onset: 11-22-2024 Episodic Residual codes; unclassified (20 sources) Past history of procedure; Translations: [Personal history of other medical treatment] 08-20-2020 Episodic Comment on above: 08/20/20 Residual codes; unclassified (20 sources) History of surgical procedure on vein; Translations: [Other specified postprocedural states] 03-12-2021 Episodic Residual codes; unclassified (3 sources) Influenza vaccination declined; Translations: [Immunization not carried out because of patient refusal] 01-20-2023 Episodic Residual codes; unclassified (3 sources) Pneumococcal vaccination declined; Translations: [Immunization not carried out because of patient refusal] 01-20-2023 Episodic Residual codes; unclassified (3 sources) HIV screening declined; Translations: [Procedure and treatment not carried out because of patient's decision for unspecified reasons] 01-20-2023 Episodic Residual codes; unclassified (3 sources) Procedure and treatment not carried out because of patient's decision for unspecified reasons; Translations: [Surgical or other procedure not carried out because of patient's decision] 01-20-2023 Episodic Secondary malignancies (20 sources) Regional lymph node metastasis present ; Translations: [Secondary and unspecified malignant neoplasm of lymph node, unspecified] 08-20-2020 Chronic Secondary malignancies (5 sources) Secondary and unspecified malignant neoplasm of lymph node, unspecified; Translations: [Secondary and unspecified malignant neoplasm of lymph nodes, site unspecified] Chronic Secondary malignancies (5 sources) Secondary malignant neoplasm of vagina; 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] Chronic Syncope (19 sources) Near syncope; Translations: [Syncope and collapse] 11-17-2021 Episodic Past or Other Problems Problem Classification Problem Date Documented Date Episodic/Chronic Other aftercare (20 sources) Patient encounter status; Translations: [Encounter for adjustment and management of vascular access device] Onset: 09-14-2024 11-12-2021 Episodic Other aftercare (7 sources) Long-term current use of drug therapy; Translations: [Other longterm (current) drug therapy] Onset: 07-19-2024 Episodic Other aftercare (3 sources) Other longterm (current) drug therapy; Translations: [Other longterm (current) drug therapy] Onset: 07-19-2024 Episodic Other nutritional; endocrine; and metabolic disorders (20 sources) Overweight; Translations: [Overweight] Onset: 01-20-2023 01-20-2023 Episodic Other screening for suspected conditions (not mental disorders or infectious disease) (7 sources) Raised TSH level; Translations: [Other specified abnormal findings of blood chemistry] Onset: 02-02-2024 05-21-2024 Episodic Residual codes; unclassified (20 sources) Postoperative state; Translations: [Other specified postprocedural states] Onset: 04-16-2024 04-17-2024 Episodic Residual codes; unclassified (2 sources) Other specified postprocedural states; Translations: [Other specified postprocedural states] Onset: 04-16-2024 Episodic Results Test Name Value Interpretation Reference Range Facility 36on 01-03-2025 36 Called with ca125 Normal [facility] CA 125on 01-03-2025 Cancer Ag 125 Qn 16.8 [arb'U]/mL 0.0 - 35 .0 U/mL [facility] Interpretation and review of laboratory results Normal [facility] Testing performed on the [employer] using a two-step chemiluminescent microparticle immunoassay method. Results obtained by different methods should not be used interchangeably. A 10.75% increase in assay value is considered as a significant change. Results obtained by different methods should not be used interchangeably. The CA 125 result is based on a new assay and the results may not be comparable with assays run prior to 12/13/2022. [facility] [employer] [facility] [employer] CA 125 16.8 U/mL Normal 0.0-35.0 [facility] Comment on above: Result Comment: MAHENDRA Escamilla COMMENTS: Testing performed on the [employer] using a two-step chemiluminescent microparticle immunoassay method. Results obtained by different methods should not be used interchangeably. A 10.75% increase in assay value is considered as a significant change. Results obtained by different methods should not be used interchangeably. The CA 125 result is based on a new assay and the results may not be comparable with assays run prior to 12/13/2022. Performed By: #### L AB17, [id number] ####Transition Of Care Specialist: DAVON OJEDA ([phone])[facility] ([facility])[address] [place] [address] CBC W Auto Differential pane l (Bld)on 01-03-2025 Basophils (Bld) [#/Vol] 0 10*3/uL 0.0 - 0.2 10*3/uL [employer] Basophils/100 WBC (Bld) 0.5 % 0.0 - 2.0 % [employer] Eosinophils (Bld) [#/Vol] 0.1 10*3/uL 0.0 - 0.5 10*3/uL [employer] Eosinophils/100 WBC (Bld) 1.4 % 0.0 - 6.0 % [employer] Erythrocyte distribution width (RBC) [Ratio] 12.7 % 11.5 - 15.0 % [employer] Hematocrit (Bld) [Volume fraction] 34.7 % Low 35.0 - 47.0 % [employer] Hemoglobin (Bld) [Mass/Vol] 11.5 g/dL Low 11.7 - 16.0 g/dL [employer] Immature granulocytes (Bld) [#/Vol] 0 10*3/uL NINF - 0.1 10*3/uL [employer] Immature granulocytes/100 WBC (Bld) 0.2 % 0.0 - 2.0 % [employer] Interpretation and review of laboratory results Abnormal [employer] Lymphocytes (Bld) [#/Vol] 1.1 10*3/uL 1.0 - 4.3 10*3/uL [facility] Lymphocytes/100 WBC (Bld) 27.2 % 15.0 - 45.0 % [facility] MCH (RBC) [Entitic mass] 33.1 pg 26. 0 - 34.0 pg [facility] MCHC (RBC) [Mass/Vol] 33.1 % 30.5 - 36.0 % [facility] MCV (RBC) [Entitic vol] 100 fL High 77.0 - 99.0 fL [facility] Monocytes (Bld) [#/Vol] 0.4 10*3/uL 0.0 - 0.9 10*3/uL [facility] Monocytes/100 WBC (Bld) 8.7 % 5.0 - 13.0 % [facility] Neutrophils (Bld) [#/Vol] 2.6 10*3/uL 1.8 - 7.5 10*3/uL [facility] Neutrophils/100 WBC (Bld) 62 % 38.0 - 82.0 % [facility] Nucleated RBC/100 WBC (Bld) [Ratio] 0 % [facility] Platelet mean volume (Bld) [Entitic vol] 10.1 fL 9.0 - 12.7 fL [facility] Platelets (Bld) [#/Vol] 225 10*3/uL 140 - 440 10*3/uL [facility] RBC (Bld) [#/Vol] 3.47 10*6/uL Low 3.80 - 5.20 10*6/uL [facility] WBC (Bld) [#/Vol] 4.2 10*3/uL 3.6 - 10.7 10*3/uL [facility] CBC WITH AUTO DIFFERENTIALon 01-03-2025 Basophils (Bld) [#/Vol] 0.0 10*3/uL Normal 0.0-0.2 [facility] Comment on above: Performed By: #### L [id number] ####Transition Of Care Specialist: DAVON OJEDA ([phone])[facility] ([facility])[address] [place] [address] Basophils/100 WBC (Bld) 0.5 % Normal 0.0-2.0 S [facility] Comment on above: Performed By: #### L [id number] ####Transition Of Care Specialist: DAVON [phone])[facility] [place] ([facility])[address] Eosinophils (Bld) [#/Vol] 0.1 10*3/uL Normal 0.0-0.5 [facility] Comment on above: Performed By: #### L [id number] ####Transition Of Care Specialist: DAVON OJEDA ([phone])[facility] ([facility])[address] Eosinophils/100 WBC (Bld) 1.4 % Normal 0.0-6.0 [facility] Comment on above: Performed By: #### L [id number] ####Transition Of Care Specialist: DAVON OJEDA ([phone])[facility] [place] [address] Erythrocyte distribution width (RBC) [Ratio] 12.7 % Normal 11.5-15.0 [facility] Comment on above: Performed By: #### L [id number] ####Transition Of Care Specialist: DAVON OJEDA ([phone])[facility] [place] [address] Hematocrit (Bld) [Volume fraction] 34.7 % Low 35.0-47.0 [facility] Comment on above: Performed By: #### L [id number] ####Transition Of Care Specialist: DAVON OJEDA ([phone])[facility] [place] [address] Hemoglobin (Bld) [Mass/Vol] 11.5 g/dL Low 11.7-16.0 [facility] Comment on above: Performed By: #### L [id number] ####Transition Of Care Specialist: DAVON OJEDA ([phone])[facility] IMMATURE GRANS % 0.2 % Normal 0.0-2.0 [facility] Comment on above: Performed By: #### L [id number] ####Transition Of Care Specialist: DAVON OJEDA ([phone])[facility] [place] ([facility])[address] IMMATURE GRANS ABSOLUTE 0.0 10*3/uL Normal <0.1 [facility] Comment on above: Performed By: #### L [id number] ####Transition Of Care Specialist: DAVON OJEDA ([phone])[facility] [place] ([facility])[address] Lymphocytes (Bld) [#/Vol] 1.1 10*3/uL Normal 1.0-4.3 [facility] Comment on above: Performed By: #### L [id number] ####Transition Of Care Specialist: DAVON OJEDA ([phone])[facility] [place] ([facility])[address] Lymphocytes/100 WBC (Bld) 27.2 % Normal 15.0-45.0 [facility] Comment on above: Performed By: #### L [id number] ####Transition Of Care Specialist: DAVON OJEDA ([phone])[facility] [place] ([facility])[address] MCH (RBC) [Entitic mass] 33.1 pg Normal 26.0-34.0 [facility] Comment on above: Performed By: #### L [id number] ####Transition Of Care Specialist: DAVON OJEDA ([phone])[facility] [place] ([facility])[address] [place] [address] MCHC 33.1 % Normal 30.5-36.0 [facility] Comment on above: Performed By: #### L [id number] ####Transition Of Care Specialist: DAVON OJEDA ([phone])[facility] [place] ([facility])[address] MCV (RBC) [Entitic vol] 100.0 fL High 77.0-99.0 S [facility] Comment on above: Performed By: #### L [id number] ####Transition Of Care Specialist: DAVON OJEDA ([phone])[facility] [place] ([facility])[address] Monocytes (Bld) [#/Vol] 0.4 10*3/uL Normal 0.0-0.9 [facility] Comment on above: Performed By: #### L [id number] ####Transition Of Care Specialist: DAVON OJEDA ([phone])[facility] [place] ([facility])[address] Monocytes/100 WBC (Bld) 8.7 % Normal 5.0-13.0 [facility] Comment on above: Performed By: #### L [id number] ####Transition Of Care Specialist: DAVON OJEDA ([phone])[facility] [place] ([facility])[address] NEUTROPHILS ABSOLUTE 2.6 10*3/uL Normal 1.8-7.5 [facility] Comment on above: Performed By: #### L [id number] ####Transition Of Care Specialist: DAVON OJEDA ([phone])[facility] [place] ([facility])[address] Neutrophils/100 WBC (Bld) 62.0 % Normal 38.0-82.0 [facility] Comment on above: Performed By: #### L [id number] ####Transition Of Care Specialist: DAVON OJEDA ([phone])[facility] [place] ([facility])[address] NRBC 0.0 /100 WBCs Normal 0.0-2.0 [facility] Comment on above: Performed By: #### L [id number] ####Transition Of Care Specialist: DAVON OJEDA ([phone])[facility] [place] ([facility])[address] Platelet mean volume (Bld) [Entitic vol] 10.1 fL Normal 9.0-12.7 [facility] Comment on above: Performed By: #### L [id number] ####Transition Of Care Specialist: DAVON OJEDA ([phone])[facility] [place] ([facility])[address] Platelets (Bld) [#/Vol] 225 10*3/uL Normal 140-440 [facility] Comment on above: Performed By: #### L [id number] ####Transition Of Care Specialist: DAVON OJEDA ([phone])[facility] [place] ([facility])[address] RBC (Bld) [#/Vol] 3.47 10*6/uL Low 3.80-5.20 [facility] Comment on above: Performed By: #### L [id number] ####Transition Of Care Specialist: DAVON OJEDA ([phone])[facility]ENTERDidier [place] ([facility])[address] WBC (Bld) [#/Vol] 4.2 10*3/uL Normal 3.6-10.7 [facility] Comment on above: Performed By: #### L [id number] ####Transition Of Care Specialist: DAVON OJEDA ([phone])[facility] CENTERDidier ANDERSONRobert (SBHLAB)[address] [place] [address] COMPREHENSIVE METABOLIC PANE Juan 01-03-2025 Albumin [Mass/Vol] 3.8 g/dL Normal 3.4-4.8 [facility] Comment on above: Performed By: #### L AB17, [id number] ####Transition Of Care Specialist: DAVON OJDEA ([phone])[facility] CENTERDidier SANZMADELINE ([facility])[address] ALP [Catalytic activity/Vol] 99 U/L Normal 40-150 [facility] Comment on above: Performed By: #### L AB17, [id number] ####Transition Of Care Specialist: DAVON OJEDA ([phone])[facility]ENTERDidier SANZLYNDAN ([facility])[address] ALT [Catalytic activity/Vol] 21 U/L Normal <30 [facility] Comment on above: Performed By: #### L AB17, [id number] ####Transition Of Care Specialist: DAVON OJEDA ([phone])[facility] [place] ([facility])[address] Anion gap [Moles/Vol] 11 mmol/L Normal 3-13 [facility] Comment on above: Performed By: #### L AB17, [id number] ####Transition Of Care Specialist: DAVON OJEDA ([phone])[facility] [place] ([facility])[address] AST [Catalytic activity/Vol] 31 U/L Normal <34 [facility] Comment on above: Performed By: #### L AB17, [id number] ####Transition Of Care Specialist: DAVON OJEDA ([phone])[facility] [place] ([facility])[address] Bilirubin [Mass/Vol] 0.4 mg/dL Normal <1.2 [facility] Comment on above: Performed By: #### L AB17, [id number] ####Transition Of Care Specialist: DAVON OJEDA ([phone])[facility] [place] ([facility])[address] Calcium [Mass/Vol] 8.8 mg/dL Normal 8.8-10.0 [facility] Comment on above: Performed By: #### L AB17, [id number] ####Transition Of Care Specialist: DAVON OJEDA ([phone])[facility] [place] ([facility])[address] [place] [address] [place] Chloride [Moles/Vol] 106 mmol/L Normal 98-107 [facility] Comment on above: Performed By: #### L AB17, [id number] ####Transition Of Care Specialist: DAVON OJEDA ([phone])[facility] [place] ([facility])[address] [place] [address] [place] CO2 [Moles/Vol] 23 mmol/L Normal 23-31 [facility] Comment on above: Performed By: #### L AB17, [id number] ####Transition Of Care Specialist: DAVON OJEDA ([phone])[facility] [place] ([facility])[address] Creatinine [Mass/Vol] 0.96 mg/dL Normal 0.57-1.11 [facility] Comment on above: Performed By: #### L AB17, [id number] ####Transition Of Care Specialist: DAVON OJEDA ([phone])[facility] [place] ([facility])[address] [place] [address] [place] GLOMERULAR FILTRATION RATE ML/MIN/1.73 SQ M.PREDICTED 63.0 mL/min/1.73m*2 Normal >60.0 [facility] Comment on above: Result Comment: Calc ulation based on the Chronic Kidney Disease Epidemiology Collaboration (CKD-EPI) equation refit without adjustment for race Performed By: #### L 17, [id number] ####Transition Of Care Specialist: DAVON OJEDA ([phone])[facility] ([facility])[address] Glucose [Mass/Vol] 94 mg/dL Normal 82-115 [facility] Comment on above: Performed By: #### L AB17, [id number] ####Transition Of Care Specialist: DAVON OJEDA ([phone])[facility] ([facility])[address] Potassium [Moles/Vol] 4.1 mmol/L Normal 3.5-5.1 [facility] Comment on above: Result Comment: [facility] potassium values may be up to 0.5 mmol/L lower than serum values. Performed By: #### L AB17, [id number] ####Transition Of Care Specialist: DAVON OJEDA ([phone])[facility] [place] ([facility])[address] [place] [address] [place] Protein [Mass/Vol] 7.3 g/dL Normal 6.4-8.3 [facility] Comment on above: Performed By: #### L AB17, [id number] ####Transition Of Care Specialist: DAVON OJEDA ([phone])[facility] ([facility])[address] [place] [address] [place] Sodium [Moles/Vol] 140 mmol/L Normal 136-145 [facility] Comment on above: Performed By: #### L AB17, [id number] ####Transition Of Care Specialist: DAVON COLORADOAbrilJERRY ([phone])[facility] ([facility])[address] Urea nitrogen [Mass/Vol] 21 mg/dL Normal 9-23 [facility] Comment on above: Performed By: #### L AB17, [id number] ####Transition Of Care Specialist: DAVON OJEDA ([phone])[facility] ([facility])[address] Comprehensive metabolic 1998 panelon 01-03-2025 Albumin [Mass/Vol] 3.8 g/dL 3.4 - 4.8 g/dL [facility] ALP [Catalytic activity/Vol] 99 U/L 40 - 150 U/L [facility] ALT [Catalytic activity/Vol] 21 U/L NINF - 30 U/L [facility] Anion gap [Moles/Vol] 11 mmol/L 3 - 13 mmol/L [facility] AST [Catalytic activity/Vol] 31 U/L NINF - 34 U/L [facility] Bilirubin [Mass/Vol] 0.4 mg/dL [facility] mg/dL [facility] Calcium [Mass/Vol] 8.8 mg/dL 8.8 - 10. 0 mg/dL [facility] Chloride [Moles/Vol] 106 mmol/L 98 - 10 7 mmol/L [facility] CO2 [Moles/Vol] 23 mmol/L 23 - 31 mmol/L [facility] Creatinine [Mass/Vol] 0.96 mg/dL 0.57 - 1.11 mg/dL [facility] GFR/1.73 sq M.predicted (S/P/Bld) [Vol rate/Area] 63 mL/min - PINF [facility] Comment on above: Calculation based on the Chronic Kidney Disease Epidemiology Collaboration (CKD-EPI) equation refit without adjustment for race Glucose [Mass/Vol] 94 mg/dL 82 - 115 mg/dL [facility] Interpretation and review of laboratory results Normal [facility] Potassium [Moles/Vol] 4.1 mmol/L 3.5 - 5.1 mmol/L [facility] Comment on above: Plasma potassium kimberli ues may be up to 0.5 mmol/L lower than serum values. Protein [Mass/Vol] 7.3 g/dL 6.4 - 8.3 g/dL [facility] Sodium [Moles/Vol] 140 mmol/L 136 - 145 mmol/L [facility] Urea nitrogen [Mass/Vol] 21 mg/dL 9 - 23 mg/dL [facility] Progress Noteon 01-03-2025 Progress Note Arrival Note Infusio n Patient is here for keytruda. Labs were drawn via peripheral IV, obtained but do not have to wait for tx. Pt denies any adverse rx to previous tx. 1507 Ordered treatment completed. Patient discharged without any issues. Patient has a copy of next infusion appointment and verbalizes understanding. All questions answered. [facility] 36on 12-24-2024 36 Spoke to patient and per Rosie who found a case study that found some reports of alopecia areata with patient's on keytruda. I also found some patient's reporting thinning of their hair (about 0.4%). unfortunately, she does not have any treatment suggestions for this. It does seem to grow back after they stop though. She verbalizes understanding. [facility] 36on 12-23-2024 36 Spoke to patient and she is losing her hair and would like to know if there is anything Rosie Fuller APRN would recommend. She is already on Biotin and using a shampoo recommended by her Senior Safety Management Consultant. [facility] 36on 11-26-2024 36 Pt called with CA [address] [facility] 36 ----- Message from Denis Richey MD sent at 11/23/2024 6:55 AM EDT ----- Иванz callw [facility] ca 125 ----- Message ----- From: De[employer] Sent: 11/22/2024 12:55 PM EDT To: Denis Richey MD [facility] 25-hydroxyvitamin D3 [Mass/V ol]on 11-22-2024 Target concentration : 30 - 40 ng/mL; toxicity seen at concentrations >100 ng/mL Less than 20 ng/mL: Indicative of Vit D deficiency Test performed by [employer], measuring Total Vitamin D, not individual fractions. [facility] CA 125on 11-22-2024 Cancer Ag 125 Qn 16 [arb'U]/mL 0.0 - 35.0 U/mL [employer] Interpretation and review of laboratory results Normal [employer] Testing performed on the [employer] using a two-step chemiluminescent microparticle immunoassay method. Results obtained by different methods should not be used interchangeably. A 10.75% increase in assay value is considered as a significant change. Results obtained by different methods should not be used interchangeably. The CA 125 result is based on a new assay and the results may not be comparable with assays run prior to 12/13/2022. [facility] [employer] CA 125 16.0 U/mL Normal 0.0-35.0 [facility] [employer] [facility] Comment on above: Result Comment: MAHENDRA Escamilla COMMENTS: Testing performed on the [employer] using a two-step chemiluminescent microparticle immunoassay method. Results obtained by different methods should not be used interchangeably. A 10.75% increase in assay value is considered as a significant change. Results obtained by different methods should not be used interchangeably. The CA 125 result is based on a new assay and the results may not be comparable with assays run prior to 12/13/2022. Performed By: #### L [id number] ####Transition Of Care Specialist: DAVON OJEDA ([phone])[facility] ([facility])[address] [place] [address] CBC W Auto Differential pane l (Bld)on 11-22-2024 Basophils (Bld) [#/Vol] 0 10*3/uL 0.0 - 0.2 10*3/uL [employer] Basophils/100 WBC (Bld) 0.5 % 0.0 - 2.0 % [employer] Eosinophils (Bld) [#/Vol] 0.1 10*3/uL 0.0 - 0.5 10*3/uL [employer] Eosinophils/100 WBC (Bld) 1.6 % 0.0 - 6.0 % [employer] Erythrocyte distribution width (RBC) [Ratio] 11.7 % 11.5 - 15.0 % [employer] Hematocrit (Bld) [Volume fraction] 34.6 % Low 35.0 - 47.0 % [employer] Hemoglobin (Bld) [Mass/Vol] 11.8 g/dL 11.7 - 16.0 g/dL [facility] Immature granulocytes (Bld) [#/Vol] 0 10*3/uL NINF - 0.1 10*3/uL [facility] Immature granulocytes/100 WBC (Bld) 0.5 % 0.0 - 2.0 % [facility] Interpretation and review of laboratory results Abnormal [facility] Lymphocytes (Bld) [#/Vol] 1.2 10*3/uL 1.0 - 4.3 10*3/uL [facility] Lymphocytes/100 WBC (Bld) 26.6 % 15.0 - 45.0 % [facility] MCH (RBC) [Entitic mass] 34.5 pg High 26. 0 - 34.0 pg [facility] MCHC (RBC) [Mass/Vol] 34.1 % 30.5 - 36.0 % [facility] MCV (RBC) [Entitic vol] 101.2 fL High 77.0 - 99.0 fL [facility] Monocytes (Bld) [#/Vol] 0.3 10*3/uL 0.0 - 0.9 10*3/uL [facility] Monocytes/100 WBC (Bld) 7.7 % 5.0 - 13.0 % [facility] Neutrophils (Bld) [#/Vol] 2.8 10*3/uL 1.8 - 7.5 10*3/uL [facility] Neutrophils/100 WBC (Bld) 63.1 % 38.0 - 82.0 % [facility] Nucleated RBC/100 WBC (Bld) [Ratio] 0 % [facility] Platelet mean volume (Bld) [Entitic vol] 10.3 fL 9.0 - 12.7 fL [facility] Platelets (Bld) [#/Vol] 214 10*3/uL 140 - 440 10*3/uL [facility] RBC (Bld) [#/Vol] 3.42 10*6/uL Low 3.80 - 5.20 10*6/uL [facility] WBC (Bld) [#/Vol] 4.4 10*3/uL 3.6 - 10.7 10*3/uL [facility] CBC WITH AUTO DIFFERENTIALon 11-22-2024 Basophils (Bld) [#/Vol] 0.0 10*3/uL Normal 0.0-0.2 [facility] Comment on above: Performed By: #### L [id number] ####Transition Of Care Specialist: YVONNE BRAY ([phone])[facility])[address] [place] [address] Basophils/100 WBC (Bld) 0.5 % Normal 0.0-2.0 [facility] Comment on above: Performed By: #### L [id number] ####Transition Of Care Specialist: YVONNE BRAY ([phone])[facility])[address] [place] [address] Eosinophils (Bld) [#/Vol] 0.1 10*3/uL Normal 0.0-0.5 [facility] Comment on above: Performed By: #### L [id number] ####Transition Of Care Specialist: YVONNE BRAY ([phone])[facility])[address] [place] [address] Eosinophils/100 WBC (Bld) 1.6 % Normal 0.0-6.0 [facility] Comment on above: Performed By: #### L [id number] ####Transition Of Care Specialist: YVONNE BRAY ([phone])[facility])[address] [place] [address] Erythrocyte distribution width (RBC) [Ratio] 11.7 % Normal 11.5-15.0 [facility] Comment on above: Performed By: #### L [id number] ####Transition Of Care Specialist: YVONNE BRAY ([phone])[facility])[address] [place] [address] Hematocrit (Bld) [Volume fraction] 34.6 % Low 35.0-47.0 [facility] Comment on above: Performed By: #### L [id number] ####Transition Of Care Specialist: YVONNE BRAY ([phone])[facility])[address] [place] [address] Hemoglobin (Bld) [Mass/Vol] 11.8 g/dL Normal 11.7-16.0 [facility] Comment on above: Performed By: #### L [id number] ####Transition Of Care Specialist: YVONNE BRAY ([phone])[facility])[address] [place] [address] IMMATURE GRANS % 0.5 % Normal 0.0-2.0 [facility] Comment on above: Performed By: #### L [id number] ####Transition Of Care Specialist: YVONNE BRAY ([phone])[facility])[address] [place] [address] IMMATURE GRANS ABSOLUTE 0.0 10*3/uL Normal <0.1 [facility] Comment on above: Performed By: #### L [id number] ####Transition Of Care Specialist: YVONNE BRAY ([id number])[facility])[address] [place] [address] Lymphocytes (Bld) [#/Vol] 1.2 10*3/uL Normal 1.0-4.3 [facility] Comment on above: Performed By: #### L [id number] ####Transition Of Care Specialist: YVONNE BRAY ([phone])[facility])[address] [place] [address] Lymphocytes/100 WBC (Bld) 26.6 % Normal 15.0-45.0 [facility] Comment on above: Performed By: #### L [id number] ####Transition Of Care Specialist: YVONNE BRAY ([phone])[facility])[address] [place] [address] MCH (RBC) [Entitic mass] 34.5 pg High 26.0-34.0 [facility] Comment on above: Performed By: #### L [id number] ####Transition Of Care Specialist: YVONNE BRAY ([phone])[facility])[address] [place] [address] MCHC 34.1 % Normal 30.5-36.0 [facility] Comment on above: Performed By: #### L [id number] ####Transition Of Care Specialist: YVONNE BRAY ([phone])[facility])[address] [place] [address] MCV (RBC) [Entitic vol] 101.2 fL High 77.0-99.0 [facility] Comment on above: Performed By: #### L [id number] ####Transition Of Care Specialist: YVONNE BRAY ([phone])[facility] ([facility])[address] [place] [address] Monocytes (Bld) [#/Vol] 0.3 10*3/uL Normal 0.0-0.9 [facility] Comment on above: Performed By: #### L [id number] ####Transition Of Care Specialist: YVONNE BRAY ([phone])[facility] ([facility])[address] [place] [address] Monocytes/100 WBC (Bld) 7.7 % Normal 5.0-13.0 [facility] Comment on above: Performed By: #### L [id number] ####Transition Of Care Specialist: YVONNE BRAY ([phone])[facility] ([facility])[address] [place] [address] NEUTROPHILS ABSOLUTE 2.8 10*3/uL Normal 1.8-7.5 [facility] Comment on above: Performed By: #### L [id number] ####Transition Of Care Specialist: YVONNE BRAY ([phone])[facility] ([facility])[address] [place] [address] Neutrophils/100 WBC (Bld) 63.1 % Normal 38.0-82.0 [facility] Comment on above: Performed By: #### L [id number] ####Transition Of Care Specialist: YVONNE BRAY ([phone])[facility] ([facility])[address] [place] [address] NRBC 0.0 /100 WBCs Normal 0.0-2.0 [facility] Comment on above: Performed By: #### L [id number] ####Transition Of Care Specialist: YVONNE BRAY ([phone])[facility] ([facility])[address] [place] [address] Platelet mean volume (Bld) [Entitic vol] 10.3 fL Normal 9.0-12.7 [facility] Comment on above: Performed By: #### L [id number] ####Transition Of Care Specialist: YVONNE BRAY ([phone])[facility])[address] [place] [address] Platelets (Bld) [#/Vol] 214 10*3/uL Normal 140-440 [facility] Comment on above: Performed By: #### L [id number] ####Transition Of Care Specialist: YVONNE BRAY ([phone])[facility] ([facility])[address] [place] [address] RBC (Bld) [#/Vol] 3.42 10*6/uL Low 3.80-5.20 [facility] Comment on above: Performed By: #### L [id number] ####Transition Of Care Specialist: YVONNE BRAY ([phone])[facility] ([facility])[address] [place] [address] WBC (Bld) [#/Vol] 4.4 10*3/uL Normal 3.6-10.7 [facility] Comment on above: Performed By: #### L [id number] ####Transition Of Care Specialist: YVONNE BRAY ([phone])[facility] ([facility])[address] [place] [address] COMPREHENSIVE METABOLIC PANE Juan 11-22-2024 Albumin [Mass/Vol] 4.0 g/dL Normal 3.4-4.8 [facility] Comment on above: Performed By: #### L [id number] ####Transition Of Care Specialist: YVONNE BRAY ([phone])[facility] ([facility])[address] [place] [address] ALP [Catalytic activity/Vol] 97 U/L Normal 40-150 [facility] Comment on above: Performed By: #### L [id number] ####Transition Of Care Specialist: YVONNE BRAY ([phone])[facility])[address] [place] [address] ALT [Catalytic activity/Vol] 22 U/L Normal <30 [facility] Comment on above: Performed By: #### L [id number] ####Transition Of Care Specialist: YVONNE BRAY ([phone])[facility] ([facility])[address] [place] [address] [place] Anion gap [Moles/Vol] 6 mmol/L Normal 3-13 [facility] Comment on above: Performed By: #### L [id number] ####Transition Of Care Specialist: YVONNE BRAY ([phone])[facility] [place] [address] [place] AST [Catalytic activity/Vol] 29 U/L Normal <34 [facility] Comment on above: Performed By: #### L [id number] ####Transition Of Care Specialist: YVONNE BRAY ([phone])[facility] ([facility])[address] [place] [address] Bilirubin [Mass/Vol] 0.4 mg/dL Normal <1.2 [facility] Comment on above: Performed By: #### L [id number] ####Transition Of Care Specialist: YVONNE BRAY ([phone])[facility])[address] [place] [address] Calcium [Mass/Vol] 8.9 mg/dL Normal 8.8-10.0 [facility] Comment on above: Performed By: #### L [id number] ####Transition Of Care Specialist: YVONNE BRAY ([phone])[facility])[address] [place] [address] [place] Chloride [Moles/Vol] 100 mmol/L Normal 98-107 [facility] Comment on above: Performed By: #### L [id number] ####Transition Of Care Specialist: YVONNE BRAY ([phone])[facility])[address] [place] [address] [place] CO2 [Moles/Vol] 29 mmol/L Normal 23-31 [facility] Comment on above: Performed By: #### L [id number] ####Transition Of Care Specialist: YVONNE BRAY ([phone])[facility])[address] [place] [address] [place] Creatinine [Mass/Vol] 0.80 mg/dL Normal 0.57-1.11 [facility] Comment on above: Performed By: #### L [id number] ####Transition Of Care Specialist: YVONNE BRAY ([phone])[facility])[address] [place] [address] GLOMERULAR FILTRATION RATE ML/MIN/1.73 SQ M.PREDICTED 78.9 mL/min/1.73m*2 Normal >60.0 [facility] Comment on above: Result Comment: Calc ulation based on the Chronic Kidney Disease Epidemiology Collaboration (CKD-EPI) equation refit without adjustment for race Performed By: #### L [id number] ####Transition Of Care Specialist: YVONNE BRAY ([phone])[facility])[address] [place] [address] Glucose [Mass/Vol] 90 mg/dL Normal 82-115 [facility] Comment on above: Performed By: #### L [id number] ####Transition Of Care Specialist: YVONNE BRAY ([phone])[address] Potassium [Moles/Vol] 3.9 mmol/L Normal 3.5-5.1 [facility] Comment on above: Result Comment: [facility] potassium values may be up to 0.5 mmol/L lower than serum values. Performed By: #### L [id number] ####Transition Of Care Specialist: YVONNE BRAY ([phone])[facility])[address] [place] [address] Protein [Mass/Vol] 7.3 g/dL Normal 6.4-8.3 [facility] Comment on above: Performed By: #### L [id number] ####Transition Of Care Specialist: YVONNE BRAY ([phone])[facility])[address] [place] [address] Sodium [Moles/Vol] 135 mmol/L Low 136-145 [facility] Comment on above: Performed By: #### L [id number] ####Transition Of Care Specialist: YVONNE BRAY ([phone])[facility])[address] [place] [address] [place] Urea nitrogen [Mass/Vol] 16 mg/dL Normal 9-23 [facility] Comment on above: Performed By: #### L [id number] ####Transition Of Care Specialist: YVONNE BRAY ([phone])[facility] ([facility] Comprehensive metabolic 1998 panelon 11-22-2024 Albumin [Mass/Vol] 4 g/dL 3.4 - 4.8 g/dL [facility] ALP [Catalytic activity/Vol] 97 U/L 40 - 150 U/L [facility] ALT [Catalytic activity/Vol] 22 U/L NINF - 30 U/L [facility] Anion gap [Moles/Vol] 6 mmol/L 3 - 13 mmol/L [facility] AST [Catalytic activity/Vol] 29 U/L NINF - 34 U/L [facility] Bilirubin [Mass/Vol] 0.4 mg/dL NINF - 1.2 mg/dL [facility] Calcium [Mass/Vol] 8.9 mg/dL 8.8 - 10. 0 mg/dL [facility] Chloride [Moles/Vol] 100 mmol/L 98 - 10 7 mmol/L [facility] CO2 [Moles/Vol] 29 mmol/L 23 - 31 mmol/L [facility] Creatinine [Mass/Vol] 0.8 mg/dL 0.57 - 1.11 mg/dL [facility] GFR/1.73 sq M.predicted (S/P/Bld) [Vol rate/Area] 78.9 mL/min - PINF [facility] Comment on above: Calculation based on the Chronic Kidney Disease Epidemiology Collaboration (CKD-EPI) equation refit without adjustment for race Glucose [Mass/Vol] 90 mg/dL 82 - 115 mg/dL [facility] Interpretation and review of laboratory results Abnormal [facility] Potassium [Moles/Vol] 3.9 mmol/L 3.5 - 5.1 mmol/L [facility] Comment on above: Plasma potassium kimberli ues may be up to 0.5 mmol/L lower than serum values. Protein [Mass/Vol] 7.3 g/dL 6.4 - 8.3 g/dL [facility] Sodium [Moles/Vol] 135 mmol/L Low 136 - 145 mmol/L [facility] Urea nitrogen [Mass/Vol] 16 mg/dL 9 - 23 mg/dL [facility] FREE T4on 11-22-2024 Free T4 [Mass/Vol] 0.93 ng/dL Normal 0.70-1.48 [facility] Comment on above: Performed By: #### L [id number], [id number], [id number] ####Transition Of Care Specialist: YVONNE BRAY ([phone])[facility] ([facility])[address] [place] [address] Free T4 [Mass/Vol]on 025 Free T4 Dialysis [Mass/Vol] 0.93 ng/dL 0.70 - 1.48 ng/dL [facility] Interpretation and review of laboratory results Normal [facility] No Panel Informationon 11-22 Interpretation and review of laboratory results Normal [facility] Office Visiton 11-22-2024 Follow-up visit [id number] Cary Swenson 1950 F Date Provider Department Center 11/22/2024 [id number], [facility] 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 None Family History Problem Relation Age of Onset High Blood Pressure Mother Arthritis Mother Skin cancer Mother 60 Autoimmune disease Mother Hearing loss Mother Hypertension Mother Lung cancer Father 66 Cancer Father Thyroid disease Sister Depression Sister High Blood Pressure Sister Skin cancer Sister 60 Autoimmune disease Sister Hypertension Sister Hearing loss Daughter Suicide Attempts Son Osteoporosis Maternal Grandmother Uterine cancer Paternal Grandmother 62 Cancer Paternal Grandmother Lung cancer Paternal Grandfather 56 Cancer Paternal Grandfather Lung cancer Mother's Sister 75 Cancer Mother's Sister Breast cancer Cousin 60 Comments: on dads side Breast cancer Cousin 60 Comments: on dads side Family Status - Relation Status Age at Mother Alive Father Sister Sister Daughter Son Maternal Grandmother Paternal Grandmother Paternal Grandfather Mother's Sister Cousin Alive Cousin Alive Level of Service:19724 [place] OFFICE/OUTPATIENT ESTABLISHED LOW MDM 20 MIN Reason for Visit and Comments: Follow-up [[id number]] - C7 keytruda.. per pt states hair falling out. States first noticed it about 2 months ago. Normal [facility] Progress Noteon 11-22-2024 Progress Note Visited with Cary buckner 12:50pm in the infusion center for cycle #7 keytruda. Her daughter, Sherron, is with her today. I wished Cary a happy early birthday, as it is on Monday, 11/[birth year]. Discussed the weather and changing of seasons, and Cary stated that she hopes it is a warm, [place] day for her birthday. She stated that she has enjoyed her summer - spent much of her time at Chelly's (daughter) new house, watching her grandchildren, Kayode and Haylie, at their pool. 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 Cary plans to have a get together with her sisters this . Sherron stated that she will also be going out of town this weekend to celebrate her anniversary. Wished her a happy anniversary. Discussed that the last time I saw Cary was shortly before [facility]. Cary stated that she was supposed to come back to [place] in August for an office visit, but the appointment was changed to a virtual visit and then she received her infusion in [place]. She stated that her next infusion in December will be at [place], and then she'll likely return to [place] for an office visit and Keytruda on February 14. She stated that she had an office visit with Rosie today, and additional labs have been drawn as she has been experiencing a rash and increased hair loss. Discussed the good news of her PET scan results from 09/10. Provided support and encouragement. Notified Cary that I will continue to follow along in her care. She had no needs, questions, or concerns at this time. Encouraged her to call me or the office should that change or should she experience any new or worsening symptoms. She verbalized understanding. Normal [facility] Progress Note Pt arrives from [place] f or cycle 7 Keytruda. On assessment pt has no immune-mediated side effects. Admits to some recent hair loss but otherwise denies any new complaints. Does state that her neuropathy flares up occasionally after treatment but then returns to baseline. Previously discussed with and Rosie SOLORZANO. PIV placed with ease. CBC, CMP, CA125, TSH, free T4, Vit D obtained and sent to [facility]. POC reviewed. 1329 Treatment complete and tolerated well. PIV removed and gauze/coban placed to site. Pt aware of next apt. Ambulatory home upon discharge in no acute distress. 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 , was diagnosed with a stage III C1 endometrial cancer in June 2020. She was treated with robotic hysterectomy BSO sentinel lymph node sampling followed by chemotherapy with carboplatinum and Taxol and Herceptin in [place]. However the patient developed a severe reaction after the first course. This was in early September. The patient decided not to pursue any further chemotherapy after that point. CT A/P/C 10/15 was NILESH In February 2022 patient presented to the office complaining of a gregoria vaginal discharge. Exam revealed anterior vaginal wall replaced by malignancy. 03/11/22 Biopsy performed in office. Final Diagnosis VAGINA, BIOPSY- VAGINAL MUCOSAL FRAGMENTS WITH INVOLVEMENT BY HIGH GRADE SEROUS CARCINOMA. 03/16/22 PET showed positive for carcinoma Pt receiving Trastuzumab, Carboplatin, Abraxane, last dose 07/29/22 Patient was then started on Herceptin maintenance. PET scan September 2023 showed no evidence of recurrent disease. However PET scan in March 2024 showed evidence of periaortic safia recurrence. This was resected in the operating room , was positive for recurrent cancer. After discussion decided on chemotherapy with carboplatinum and Keytruda x 3 along with Keytruda maintenance. Repeat PET on 09/10 showed no FDG avid disease. Patient presents today for cycle #7 of Keytruda. She reports that she is doing much better with treatment. She does have a slight rash. She also seems to be having hair loss. Denies any grade 3 or 4 toxicities and has a good performance status (ECOG 0). Past Medical History: Diagnosis Date Cancer (CMS/HCC) (HCC) 07/15/2020 Endometrial Hx antineoplastic chemo 04/04/2022 ended july 2022 Osteoarthritis Osteopenia Past Surgical History: Procedure Laterality Date FRACTURE SURGERY Left 1973 ankle HEMORRHOID SURGERY HYSTERECTOMY KNEE SURGERY Right 1969 and 1970 open OTHER SURGICAL HISTORY 07/16/2020 [facility] BSO LND; Dr. Denis Richey SINUS SURGERY 2007 Social History Socioeconomic History Marital status: Single Tobacco Use Smoking status: Never Smokeless tobacco: Never Vaping Use Vaping status: Never Used Substance and Sexual Activity Alcohol use: Not Currently Drug use: Never Sexual activity: Not Currently Partners: Male Social Drivers of Health Financial Resource Strain: Low Risk (01/20/2023) Overall Financial Resource Strain (CARDIA) Difficulty of Paying Living Expenses: Not hard at all Food Insecurity: No Food Insecurity (01/20/2023) Hunger Vital Sign Worried About Running Out of Food in the Last Year: Never true Ran Out of Food in the Last Year: Never true Transportation Needs: No Transportation Needs (01/20/2023) PRAPARE - Transportation Lack of Transportation (Medical): No Lack of Transportation (Non-Medical): No Current Outpatient Medications Medication Sig Dispense Refill Alpha-Lipoic Acid 600 MG capsule Take by mouth daily. B Kdlyvis-U-Vebcqso (B-COMPLEX/VITAMIN C, W/ CA, PO) Take by mouth. multivitamin with minerals (Cerovite) 18-400 mg-mcg tablet tablet Take 1 tablet by mouth daily. ondansetron (Zofran) 8 MG tablet Take 1 tablet (8 mg) by mouth every 8 hours as needed for nausea or vomiting. 20 tablet 2 prochlorperazine (Compazine) 10 MG tablet Take 1 tablet (10 mg) by mouth every 6 hours as needed for nausea or vomiting. 30 tablet 2 saccharomyces boulardii (Florastor) 250 MG capsule Take 250 mg by mouth 2 times daily. No current facility-administered medications for this visit. Facility-Administered Medications Ordered in Other Visits Medication Dose Route Frequency Provider Last Rate Last Admin sodium chloride 0.9 % infusion 5-250 mL/hr IntraVENous Once PRN Denis Richey MD Review of Systems Paclitaxel and Levofloxacin BP (!) 170/80 Pulse 88 Wt 71.8 kg (158 lb 6.4 oz) BMI 28.06 kg/m? Physical Exam Vitals reviewed. Neurological: Mental Status: She is alert and oriented to person, place, and time. Psychiatric: Mood and Affect: Mood normal. Behavior: Behavior normal. Assessment: 73-year-old female with recurrent endometrial cancer currently undergoing Keytruda maintenance after completing 3 cycles of carboplatin with Keytruda. Plan: Plan to proceed with treatment pending labs. Check TSH, T4 and vitamin D due to hair loss. The current plan is to continue Keytruda maintenance every 6 weeks until progression or toxicity. PET scan in February. - I explained diagnosis and treatment plan; the patient understands the plan of care and agrees. The patient had an opportunity to ask questions, all of which were answered to the best of my ability. Rosie Fuller APRN - NET MVC DEVELOPER I spent a total time of 20 minutes reviewing previous notes, test results, obtaining history, communicating results to the patient as well as counse (more content not included)... Normal [facility] THYROID STIMULATING HORMONEo n 11-22-2024 THYROID STIMULATING HORMONE 2.66 uIU/mL Normal 0.35-4.94 [facility] Comment on above: Performed By: #### L [id number], [id number], [id number] ####Transition Of Care Specialist: YVONNE BRAY ([phone])[facility] [place] [address] TSHon 11-22-2024 TSH Qn 2.66 m[IU]/L [facility] VITAMIN D DEFICIENCY SCREENI NG (VIT D 25)on 11-22-2024 VIT D 25-OH, TOTAL 33 ng/mL Normal See comment [facility] Comment on above: Result Comment: MAHENDRA R COMMENTS: Target concentration: 30 - 40 ng/mL; toxicity seen at concentrations >100 ng/mL Less than 20 ng/mL: Indicative of Vit D deficiency Test performed by [employer], measuring Total Vitamin D, not individual fractions. Performed By: #### L AB129, KEC343, NDC310 ####Transition Of Care Specialist: YVONNE BRAY ([phone])[facility] ([facility])[address] [place] [address] Vitamin D Deficiency Screeni ng (Vit D 25)on 11-22-2024 25-hydroxyvitamin D3 [Mass/Vol] 33 ng/mL 20 - 50 ng/mL [facility] Specific Media CA 125on 10-11-2024 Cancer Ag 125 Qn 14.3 [arb'U]/mL 0.0 - 35 .0 U/mL [facility] performed on the [employer] I using a two-step chemiluminescent microparticle immunoassay method. Results obtained by different methods should not be used interchangeably. A 10.75% increase in assay value is considered as a significant change. Results obtained by different methods should not be used interchangeably. The CA 125 result is based on a new assay and the results may not be comparable with assays run prior to 12/13/2022. [employer] CA 125 14.3 U/mL Normal 0.0-35.0 [facility] [employer] System [facility] Comment on above: Result Comment: MAHENDRA Escamilla COMMENTS: Testing performed on the [employer] I using a two-step chemiluminescent microparticle immunoassay method. Results obtained by different methods should not be used interchangeably. A 10.75% increase in assay value is considered as a significant change. Results obtained by different methods should not be used interchangeably. The CA 125 result is based on a new assay and the results may not be comparable with assays run prior to 12/13/2022. Performed By: #### L AB155, LAB17, HCZ224 ####Transition Of Care Specialist: DAVON OJEDA ([phone])[facility] (SBHLAB)[address] [place] [address] CBC W Auto Differential pane l (Bld)on 10-11-2024 Basophils (Bld) [#/Vol] 0 10*3/uL 0.0 - 0.2 10*3/uL [employer] Basophils/100 WBC (Bld) 0.5 % 0.0 - 2.0 % [employer] Eosinophils (Bld) [#/Vol] 0.1 10*3/uL 0.0 - 0.5 10*3/uL [employer] Eosinophils/100 WBC (Bld) 2.2 % 0.0 - 6.0 % [employer] Erythrocyte distribution width (RBC) [Ratio] 11.3 % Low 11.5 - 15.0 % [employer] Hematocrit (Bld) [Volume fraction] 32.7 % Low 35.0 - 47.0 % [employer] Hemoglobin (Bld) [Mass/Vol] 11.4 g/dL Low 11.7 - 16.0 g/dL [employer] Immature granulocytes (Bld) [#/Vol] 0 10*3/uL NINF - 0.1 10*3/uL [employer] Immature granulocytes/100 WBC (Bld) 0 % 0.0 - 2.0 % [employer] Interpretation and review of laboratory results Abnormal [employer] Lymphocytes (Bld) [#/Vol] 1.4 10*3/uL 1.0 - 4.3 10*3/uL [employer] Lymphocytes/100 WBC (Bld) 33.9 % 15.0 - 45.0 % [facility] MCH (RBC) [Entitic mass] 36 pg High 26. 0 - 34.0 pg [facility] MCHC (RBC) [Mass/Vol] 34.9 % 30.5 - 36.0 % [facility] MCV (RBC) [Entitic vol] 103.2 fL High 77.0 - 99.0 fL [facility] Monocytes (Bld) [#/Vol] 0.3 10*3/uL 0.0 - 0.9 10*3/uL [facility] Monocytes/100 WBC (Bld) 7.4 % 5.0 - 13.0 % [facility] Neutrophils (Bld) [#/Vol] 2.3 10*3/uL 1.8 - 7.5 10*3/uL [facility] Neutrophils/100 WBC (Bld) 56 % 38.0 - 82.0 % [facility] Nucleated RBC/100 WBC (Bld) [Ratio] 0 % [facility] Platelet mean volume (Bld) [Entitic vol] 10 fL 9.0 - 12.7 fL [facility] Platelets (Bld) [#/Vol] 218 10*3/uL 140 - 440 10*3/uL [facility] RBC (Bld) [#/Vol] 3.17 10*6/uL Low 3.80 - 5.20 10*6/uL [facility] WBC (Bld) [#/Vol] 4 10*3/uL 3.6 - 10.7 10*3/uL [facility] CBC WITH AUTO DIFFERENTIALon 10-11-2024 Basophils (Bld) [#/Vol] 0.0 10*3/uL Normal 0.0-0.2 [facility] Comment on above: Performed By: #### L [id number] ####Transition Of Care Specialist: DAVON OJEDA ([phone])[facility]ENTERDid[facility] (SBHLAB)[address] [place] [address] Basophils/100 WBC (Bld) 0.5 % Normal 0.0-2.0 S [facility] Comment on above: Performed By: #### L [id number] ####Transition Of Care Specialist: DAVON OJEDA ([phone])[facility] ([facility])[address] Eosinophils (Bld) [#/Vol] 0.1 10*3/uL Normal 0.0-0.5 [facility] Comment on above: Performed By: #### L [id number] ####Transition Of Care Specialist: DAVON PEREZJERRY ([phone])[facility]A [facility] (SBHLAB)[address] Eosinophils/100 WBC (Bld) 2.2 % Normal 0.0-6.0 [facility] Comment on above: Performed By: #### L [id number] ####Transition Of Care Specialist: DAVON PEREZJERRY ([phone])[facility] [place] (SB[facility])[address] Erythrocyte distribution width (RBC) [Ratio] 11.3 % Low 11.5-15.0 [facility] Comment on above: Performed By: #### L [id number] ####Transition Of Care Specialist: DAVON PEREZJERRY ([phone])[facility] (SBAB)[address] Hematocrit (Bld) [Volume fraction] 32.7 % Low 35.0-47.0 [facility] Comment on above: Performed By: #### L [id number] ####Transition Of Care Specialist: DAVON PEREZJERRY ([phone])[facility] (SBAB)[address] [place] [address] Hemoglobin (Bld) [Mass/Vol] 11.4 g/dL Low 11.7-16.0 [facility] Comment on above: Performed By: #### L [id number] ####Transition Of Care Specialist: DAVON OJEDA ([phone])[facility] (SBHLAB)[address] IMMATURE GRANS % 0.0 % Normal 0.0-2.0 [facility] Comment on above: Performed By: #### L [id number] ####Transition Of Care Specialist: DAVON OJEDA ([phone])[facility] (SBAB)[address] IMMATURE GRANS ABSOLUTE 0.0 10*3/uL Normal <0.1 [facility] Comment on above: Performed By: #### L [id number] ####Transition Of Care Specialist: DAVON COLORADOAbrilJERRY ([phone])[facility] [place] (SBHLAB)[address] Lymphocytes (Bld) [#/Vol] 1.4 10*3/uL Normal 1.0-4.3 [facility] Comment on above: Performed By: #### L [id number] ####Transition Of Care Specialist: DAVON GLORYCER ([phone])[facility]A [facility] (SBHLAB)[address] Lymphocytes/100 WBC (Bld) 33.9 % Normal 15.0-45.0 [facility] Comment on above: Performed By: #### L [id number] ####Transition Of Care Specialist: DAVON OJEDA ([phone])[facility] (SB[facility]AB)[address] MCH (RBC) [Entitic mass] 36.0 pg High 26.0-34.0 [facility] Comment on above: Performed By: #### L [id number] ####Transition Of Care Specialist: DAVON OJEDA ([phone])[facility]ENTERDidier [facility] (SBHLAB)[address] [place] [address] MCHC 34.9 % Normal 30.5-36.0 [facility] Comment on above: Performed By: #### L [id number] ####Transition Of Care Specialist: DAVON OJEDA ([phone])[facility] [place] (SBHLAB)[address] MCV (RBC) [Entitic vol] 103.2 fL High 77.0-99.0 [facility] Comment on above: Performed By: #### L [id number] ####Transition Of Care Specialist: DAVON OJEDA ([phone])[facility] (SBHLAB)[address] Monocytes (Bld) [#/Vol] 0.3 10*3/uL Normal 0.0-0.9 [facility] Comment on above: Performed By: #### L [id number] ####Transition Of Care Specialist: DAVON OJEDA ([phone])[facility] [place] (SBHLAB)[address] Monocytes/100 WBC (Bld) 7.4 % Normal 5.0-13.0 [facility] Comment on above: Performed By: #### L [id number] ####Transition Of Care Specialist: DAVON OJEDA ([phone])[facility] [place] (SBHLAB)[address] NEUTROPHILS ABSOLUTE 2.3 10*3/uL Normal 1.8-7.5 [facility] Comment on above: Performed By: #### L [id number] ####Transition Of Care Specialist: DAVON OJEDA ([phone])[facility] [place] (SBHLAB)[address] Neutrophils/100 WBC (Bld) 56.0 % Normal 38.0-82.0 [facility] Comment on above: Performed By: #### L [id number] ####Transition Of Care Specialist: DAVON OJEDA ([phone])[facility] [place] (SBHLAB)[address] NRBC 0.0 /100 WBCs Normal 0.0-2.0 [facility] Comment on above: Performed By: #### L [id number] ####Transition Of Care Specialist: DAVON OJEDA ([phone])[facility] [place] (SBHLAB)[address] Platelet mean volume (Bld) [Entitic vol] 10.0 fL Normal 9.0-12.7 [facility] Comment on above: Performed By: #### L [id number] ####Transition Of Care Specialist: DAVON OJEDA ([phone])[facility] [place] (SBHLAB)[address] [place] [address] [place] Platelets (Bld) [#/Vol] 218 10*3/uL Normal 140-440 [facility] Comment on above: Performed By: #### L [id number] ####Transition Of Care Specialist: DAVON OJEDA ([phone])[facility] [place] (SBHLAB)[address] RBC (Bld) [#/Vol] 3.17 10*6/uL Low 3.80-5.20 [facility] Comment on above: Performed By: #### L [id number] ####Transition Of Care Specialist: DAVON OJEDA ([phone])[facility] [place] (SBHLAB)[address] WBC (Bld) [#/Vol] 4.0 10*3/uL Normal 3.6-10.7 [facility] Comment on above: Performed By: #### L [id number] ####Transition Of Care Specialist: DAVON OJEDA ([phone])[facility] [place] (SBHLAB)[address] COMPREHENSIVE METABOLIC PANE Juan 10-11-2024 Albumin [Mass/Vol] 4.0 g/dL Normal 3.4-4.8 [facility] Comment on above: Performed By: #### Jr WYNN, LAB17, [id number] ####Transition Of Care Specialist: DAVON OJEDA ([phone])[facility] [place] (SBHLAB)[address] [place] [address] ALP [Catalytic activity/Vol] 96 U/L Normal 40-150 [facility] Comment on above: Performed By: #### L ABKevin, LAB17, [id number] ####Transition Of Care Specialist: DAVON OJEDA ([phone])[facility] [place] (SBHLAB)[address] ALT [Catalytic activity/Vol] 23 U/L Normal <30 [facility] Comment on above: Performed By: #### L ABKevin, LAB17, [id number] ####Transition Of Care Specialist: DAVON OJEDA ([phone])[facility] [place] (SBHLAB)[address] Anion gap [Moles/Vol] 12 mmol/L Normal 3-13 [facility] Comment on above: Performed By: #### Jr WYNN, LAB17, [id number] ####Transition Of Care Specialist: DAVON OJEDA ([phone])[facility] [place] (SBHLAB)[address] AST [Catalytic activity/Vol] 29 U/L Normal <34 [facility] Comment on above: Performed By: #### Jr ABKevin, LAB17, LKI109 ####Transition Of Care Specialist: DAVON OJEDA ([phone])[facility] [place] (SBHLAB)[address] Bilirubin [Mass/Vol] 0.4 mg/dL Normal <1.2 [facility] Comment on above: Performed By: #### Jr WYNN, LAB17, [id number] ####Transition Of Care Specialist: DAVON OJEDA ([phone])[facility] [place] (SBHLAB)[address] Calcium [Mass/Vol] 8.8 mg/dL Normal 8.8-10.0 [facility] Comment on above: Performed By: #### Jr WYNN, LAB17, [id number] ####Transition Of Care Specialist: DAVON OJEDA ([phone])[facility] [place] (SBHLAB)[address] Chloride [Moles/Vol] 106 mmol/L Normal 98-107 [facility] Comment on above: Performed By: #### Jr WYNN, LAB17, ICH198 ####Transition Of Care Specialist: DAVON OJEDA ([phone])[facility] [place] (SBHLAB)[address] [place] [address] [place] CO2 [Moles/Vol] 25 mmol/L Normal 23-31 [facility] Comment on above: Performed By: #### L ABKevin, LAB17, DKT796 ####Transition Of Care Specialist: DAVON OJEDA ([phone])[facility] [place] (SB[facility]AB)[address] Creatinine [Mass/Vol] 0.90 mg/dL Normal 0.57-1.11 [facility] Comment on above: Performed By: #### Jr WYNN, LAB17, PGW628 ####Transition Of Care Specialist: DAVON OJEDA ([phone])[facility] (SBHLAB)[address] [place] [address] [place] GLOMERULAR FILTRATION RATE ML/MIN/1.73 SQ M.PREDICTED 68.5 mL/min/1.73m*2 Normal >60.0 [facility] Comment on above: Result Comment: Calc ulation based on the Chronic Kidney Disease Epidemiology Collaboration (CKD-EPI) equation refit without adjustment for race Performed By: #### Jr WYNN, LAB17, [id number] ####Transition Of Care Specialist: DAVON OJEDA ([phone])[facility] (SBHLAB)[address] Glucose [Mass/Vol] 95 mg/dL Normal 82-115 [facility] Comment on above: Performed By: #### Jr WYNN, LAB17, DII256 ####Transition Of Care Specialist: DAVON OJEDA ([phone])[facility] (SBHLAB)[address] Potassium [Moles/Vol] 4.0 mmol/L Normal 3.5-5.1 [facility] Comment on above: Result Comment: [facility] potassium values may be up to 0.5 mmol/L lower than serum values. Performed By: #### Jr WYNN, LAB17, [id number] ####Transition Of Care Specialist: DAVON OJEDA ([phone])[facility] (SBHLAB)[address] [place] [address] [place] Protein [Mass/Vol] 7.1 g/dL Normal 6.4-8.3 [facility] Comment on above: Performed By: #### Jr WYNN, LAB17, ROF270 ####Transition Of Care Specialist: DAVON OJEDA ([phone])[facility] (SBHLAB)[address] [place] [address] [place] Sodium [Moles/Vol] 143 mmol/L Normal 136-145 [facility] Comment on above: Performed By: #### L AB155, LAB17, IOW997 ####Transition Of Care Specialist: DAVON RUSTY ([phone])[facility]ENTERRober[facility] (SBHLAB)[address] Urea nitrogen [Mass/Vol] 20 mg/dL Normal 9-23 [facility] Comment on above: Performed By: #### L AB155, LAB17, YCL788 ####Transition Of Care Specialist: DAVON RUSTY ([phone])[facility] (SBHLAB)[address] Comprehensive metabolic 1998 panelon 10-11-2024 Albumin [Mass/Vol] 4 g/dL 3.4 - 4.8 g/dL [facility] ALP [Catalytic activity/Vol] 96 U/L 40 - 150 U/L [facility] ALT [Catalytic activity/Vol] 23 U/L NINF - 30 U/L [facility] Anion gap [Moles/Vol] 12 mmol/L 3 - 13 mmol/L [facility] AST [Catalytic activity/Vol] 29 U/L NINF - 34 U/L [facility] Bilirubin [Mass/Vol] 0.4 mg/dL [facility] - 1.[facility] mg/dL [facility] Calcium [Mass/Vol] 8.8 mg/dL 8.8 - 10. 0 mg/dL [facility] Chloride [Moles/Vol] 106 mmol/L 98 - 10 7 mmol/L [facility] CO2 [Moles/Vol] 25 mmol/L 23 - 31 mmol/L [facility] Creatinine [Mass/Vol] 0.9 mg/dL 0.57 - 1.11 mg/dL [facility] GFR/1.73 sq M.predicted (S/P/Bld) [Vol rate/Area] 68.5 mL/min - PINF [facility] Comment on above: Calculation based on the Chronic Kidney Disease Epidemiology Collaboration (CKD-EPI) equation refit without adjustment for race Glucose [Mass/Vol] 95 mg/dL 82 - 115 mg/dL [facility] Interpretation and review of laboratory results Normal [facility] Potassium [Moles/Vol] 4 mmol/L 3.5 - 5.1 mmol/L [facility] Comment on above: Plasma potassium kimberli ues may be up to 0.5 mmol/L lower than serum values. Protein [Mass/Vol] 7.1 g/dL 6.4 - 8.3 g/dL [facility] Sodium [Moles/Vol] 143 mmol/L 136 - 145 mmol/L [facility] Urea nitrogen [Mass/Vol] 20 mg/dL 9 - 23 mg/dL [facility] No Panel Informationon 10-11 Interpretation and review of laboratory results Normal [facility] Progress Noteon 10-11-2024 Progress Note 1405: Patient is her e for keytruda. PIV inserted in RAC; blood drawn for labs. Per orders, no need to wait on results. Will proceed with treatment. 1530: Ordered treatment completed. Patient discharged with homegoing instructions and next appointment date/time. All questions answered. Normal [facility] THYROID STIMULATING HORMONEo n 10-11-2024 THYROID STIMULATING HORMONE 2.83 uIU/mL Normal 0.35-4.94 [facility] Comment on above: Performed By: #### L AB155, LAB17, [id number] ####Transition Of Care Specialist: DAVON OJEDA ([phone])[facility] ([facility])[address] [place] [address] TSHon 10-11-2024 TSH Qn 2.83 m[IU]/L [facility] 36on 09-16-2024 36 Pt called with PET Normal [facility] PET/CT Tumor Base -Thigh Sub son 09-10-2024 PET/CT Tumor Base -Thigh Subs [facility] Imaging Services [address] [place] [address] PET/CT Tumor Base -Thigh Subs MR#: [id number] Acct: [id number] Name: CARY SWENSON Rep #: [id number] : 1950 F 73 From: Dwaine Jolley DO PCP: Dr. Denis Richey MD Status: REG CLI Study: PET/CT Tumor Base -Thigh Subs Date of Exam: Exam# [id number] Ordering Dr: Rosie Fuller PROCEDURE: 13.5 09/10/2024 REASON FOR EXAM: 73 y/o chiquitay 2024 PET-CT TECHNIQUE: Following the intravenous administration of radionucleotide, image acquisition on a dedicated PET/CT unit was performed at one hour post injection. A preliminary CT study encompassing the Skull base, neck, chest, abdomen, pelvis, and proximal thighs was performed for purposes of attenuation correction and anatomic localization. The proximal thighs were also included. The patient's blood glucose level was 107 mg/dL (allowable range: 50-180 mg/dL). RADIOPHARMACEUTICAL: mCi 18F-FDG (Fluorodeoxyglucose F18) IV was injected into an access site in the right hand RADIATION DOSE SUMMARY: Effective Dose: Approximately 7 mSv for a standard whole-body PET scan Organ Doses: Varies by organ, with higher doses typically to the bladder, liver, and brain COMPARISON: COMPARISON FROM CT, PET OR OTHER PERTINENT EXAMS: . FINDINGS: Physiologic uptake: There may be expected metabolic uptake within the brain, tongue and floor of the mouth and larynx/vocal cords, heart, kali (many normal individuals have hilar uptake in less than 3 nodes with mildly avid hilar nodes less than 2.7 SUV), liver and spleen, system, and GI tract and symmetric muscle uptake. FDG AVID AND NON-AVID LESIONS. Reported avid SUV values (g/mL*) are maximum SUV. NECK: There are no significant neck abnormalities. CHEST: Chest wall- There are no significant chest wall abnormalities. Axilla- There are no significant axillary abnormalities. Lung parenchyma- There are no significant lung parenchyma abnormalities. Mediastinum- There are no significant hilar or mediastinal adenopathy. Pleura- There are no significant pleural abnormalities. ABDOMEN: Stomach- No significant abnormalities. Liver- No significant abnormalities. Spleen- No significant abnormalities. Pancrease- No significant abnormalities. Kidneys- No significant abnormalities. Bowel- Normal bowel activity. Spine- No significant abnormalities. FDG concentration in the mid-abdominal retroperitoneum to the left of the midline in the region of the lateral aortic lymph node basin was noted on the previous exam. It is no longer seen. The left ureter is nearby and normal physiologic excretion is seen in the left ureter. PELVIS: Bowel- Normal physiologic bowel activity is identified. Masses- There are no pelvic masses. LOWER EXTREMITIES: Bones- With the use of bone window settings, there are no osteolytic or osteoblastic lesions. There are no FDG avid lesions within the visualized portion of the axial skeleton. PET/PET/CT Tumor Base -Thigh Subs IMPRESSION: FDG avid- No significant avid lesions. Suspicious- No significant suspicious abnormalities. Previously reported right aortic lymph node uptake is not identified on today's study Non-FDG avid- No non-FDG avid cysts. Other: No additional comments. Please note the low-dose CT scan was performed to facilitate PET image reconstruction and anatomic localization and does not replace a diagnostic CT. Reading [facility] CC: Dr. 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 Normal [facility] 36on 09-03-2024 36 Patient called back, requesting PET/CT order be sent to [facility] for scheduling. Order has been faxed over. Asked patient if she can call back confirming appt with facility. [place] Pet/CT office P:[phone] F [phone] Normal [facility] 36 LVM for patient to c all back to get scheduled for PET/CT scan. Normal [facility] CA 125on 08-30-2024 CA 125 14.7 U/mL Normal 0.0-35.0 [facility] Comment on above: Result Comment: MAHENDRA Escamilla COMMENTS: Testing performed on the [employer] I using a two-step chemiluminescent microparticle immunoassay method. Results obtained by different methods should not be used interchangeably. A 10.75% increase in assay value is considered as a significant change. Results obtained by different methods should not be used interchangeably. The CA 125 result is based on a new assay and the results may not be comparable with assays run prior to 12/13/2022. Performed By: #### L AB17, [id number] ####Transition Of Care Specialist: DAVON OJEDA ([phone])[facility]ENTERDid[facility] (SBAB)[address] [place] [address] CBC W Auto Differential pane l (Bld)on 08-30-2024 Basophils (Bld) [#/Vol] 0 10*3/uL 0.0 - 0.2 10*3/uL [facility] Basophils/100 WBC (Bld) 0.3 % 0.0 - 2.0 % [facility] Eosinophils (Bld) [#/Vol] 0.1 10*3/uL 0.0 - 0.5 10*3/uL [facility] Eosinophils/100 WBC (Bld) 2 % 0.0 - 6.0 % [facility] Erythrocyte distribution width (RBC) [Ratio] 13.8 % 11.5 - 15.0 % [facility] Hematocrit (Bld) [Volume fraction] 32.5 % Low 35.0 - 47.0 % [facility] Hemoglobin (Bld) [Mass/Vol] 11 g/dL Low 11.7 - 16.0 g/dL [facility] Immature granulocytes (Bld) [#/Vol] 0 10*3/uL NINF - 0.1 10*3/uL [facility] Immature granulocytes/100 WBC (Bld) 0 % 0.0 - 2.0 % [facility] Interpretation and review of laboratory results Abnormal [facility] Lymphocytes (Bld) [#/Vol] 1 10*3/uL 1.0 - 4.3 10*3/uL [facility] Lymphocytes/100 WBC (Bld) 27 % 15.0 - 45.0 % [facility] MCH (RBC) [Entitic mass] 35.3 pg High 26. 0 - 34.0 pg [facility] MCHC (RBC) [Mass/Vol] 33.8 % 30.5 - 36.0 % [facility] MCV (RBC) [Entitic vol] 104.2 fL High 77.0 - 99.0 fL [facility] Monocytes (Bld) [#/Vol] 0.3 10*3/uL 0.0 - 0.9 10*3/uL [facility] Monocytes/100 WBC (Bld) 9.3 % 5.0 - 13.0 % [facility] Neutrophils (Bld) [#/Vol] 2.2 10*3/uL 1.8 - 7.5 10*3/uL [facility] Neutrophils/100 WBC (Bld) 61.4 % 38.0 - 82.0 % [facility] Nucleated RBC/100 WBC (Bld) [Ratio] 0 % [facility] Platelet mean volume (Bld) [Entitic vol] 9.9 fL 9.0 - 12.7 fL [facility] Platelets (Bld) [#/Vol] 237 10*3/uL 140 - 440 10*3/uL [facility] RBC (Bld) [#/Vol] 3.12 10*6/uL Low 3.80 - 5.20 10*6/uL [facility] WBC (Bld) [#/Vol] 3.6 10*3/uL 3.6 - 10.7 10*3/uL [facility] CBC WITH AUTO DIFFERENTIALon 08-30-2024 Basophils (Bld) [#/Vol] 0.0 10*3/uL Normal 0.0-0.2 [facility] Comment on above: Performed By: #### L [id number] ####Transition Of Care Specialist: DAVON OJEDA ([phone])[facility] [place] [address] Basophils/100 WBC (Bld) 0.3 % Normal 0.0-2.0 [facility] Comment on above: Performed By: #### L [id number] ####Transition Of Care Specialist: DAVON OJEDA ([phone])[facility] ([facility])[address] [place] [address] Eosinophils (Bld) [#/Vol] 0.1 10*3/uL Normal 0.0-0.5 [facility] Comment on above: Performed By: #### L [id number] ####Transition Of Care Specialist: DAVON OJEDA ([phone])[facility] ([facility])[address] Eosinophils/100 WBC (Bld) 2.0 % Normal 0.0-6.0 [facility] Comment on above: Performed By: #### L [id number] ####Transition Of Care Specialist: DAVON OJEDA ([phone])[facility] ([facility])[address] [place] [address] Erythrocyte distribution width (RBC) [Ratio] 13.8 % Normal 11.5-15.0 [facility] Comment on above: Performed By: #### L [id number] ####Transition Of Care Specialist: DAVON PEREZJERRY ([phone])[facility] [place] ([facility])[address] Hematocrit (Bld) [Volume fraction] 32.5 % Low 35.0-47.0 [facility] Comment on above: Performed By: #### L [id number] ####Transition Of Care Specialist: DAVON PEREZJERRY ([phone])[facility] [place] ([facility]HLAB)[address] Hemoglobin (Bld) [Mass/Vol] 11.0 g/dL Low 11.7-16.0 [facility] Comment on above: Performed By: #### L [id number] ####Transition Of Care Specialist: DAVON PEREZJERRY ([phone])[facility] [place] ([facility]HL[facility])[address] IMMATURE GRANS % 0.0 % Normal 0.0-2.0 [facility] Comment on above: Performed By: #### L [id number] ####Transition Of Care Specialist: DAVON PEREZJERRY ([phone])[facility] ([facility])[address] IMMATURE GRANS ABSOLUTE 0.0 10*3/uL Normal <0.1 [facility] Comment on above: Performed By: #### L [id number] ####Transition Of Care Specialist: DAVON PEREZJERRY ([phone])[facility] [place] ([facility])[address] Lymphocytes (Bld) [#/Vol] 1.0 10*3/uL Normal 1.0-4.3 [facility] Comment on above: Performed By: #### L [id number] ####Transition Of Care Specialist: DAVON OJEDA ([phone])[facility] [place] ([facility]HLAB)[address] Lymphocytes/100 WBC (Bld) 27.0 % Normal 15.0-45.0 [facility] Comment on above: Performed By: #### L [id number] ####Transition Of Care Specialist: DAVON OJEDA ([phone])[facility] [place] (SBHLAB)[address] MCH (RBC) [Entitic mass] 35.3 pg High 26.0-34.0 [facility] Comment on above: Performed By: #### L [id number] ####Transition Of Care Specialist: DAVON OJEDA ([phone])[facility] [place] ([facility])[address] MCHC 33.8 % Normal 30.5-36.0 [facility] Comment on above: Performed By: #### L [id number] ####Transition Of Care Specialist: DAVON OJEDA ([phone])[facility] [place] ([facility])[address] [place] [address] MCV (RBC) [Entitic vol] 104.2 fL High 77.0-99.0 S [facility] Comment on above: Performed By: #### L [id number] ####Transition Of Care Specialist: DAVON OJEDA ([phone])[facility]Did[facility] [place] (SBHLAB)[address] [place] [address] Monocytes (Bld) [#/Vol] 0.3 10*3/uL Normal 0.0-0.9 [facility] Comment on above: Performed By: #### L [id number] ####Transition Of Care Specialist: DAVON OJEDA ([phone])[facility] [place] (SBHLAB)[address] [place] [address] [place] Monocytes/100 WBC (Bld) 9.3 % Normal 5.0-13.0 S [facility] Comment on above: Performed By: #### L [id number] ####Transition Of Care Specialist: DAVON OJEDA ([phone])[facility] [place] (SBHLAB)[address] NEUTROPHILS ABSOLUTE 2.2 10*3/uL Normal 1.8-7.5 [facility] Comment on above: Performed By: #### L [id number] ####Transition Of Care Specialist: DAVON OJEDA ([phone])[facility] [place] ([facility])[address] Neutrophils/100 WBC (Bld) 61.4 % Normal 38.0-82.0 [facility] Comment on above: Performed By: #### L [id number] ####Transition Of Care Specialist: DAVON OJEDA ([phone])[facility] [place] ([facility])[address] NRBC 0.0 /100 WBCs Normal 0.0-2.0 [facility] Comment on above: Performed By: #### L [id number] ####Transition Of Care Specialist: DAVON OJEDA ([phone])[facility] ([facility])[address] [place] [address] Platelet mean volume (Bld) [Entitic vol] 9.9 fL Normal 9.0-12.7 [facility] Comment on above: Performed By: #### L [id number] ####Transition Of Care Specialist: DAVON OJEDA ([phone])[facility] (SBHLAB)[address] Platelets (Bld) [#/Vol] 237 10*3/uL Normal 140-440 [facility] Comment on above: Performed By: #### L [id number] ####Transition Of Care Specialist: DAVON OJEDA ([phone])[facility] [place] (SBHLAB)[address] [place] [address] [place] RBC (Bld) [#/Vol] 3.12 10*6/uL Low 3.80-5.20 [facility] Comment on above: Performed By: #### L [id number] ####Transition Of Care Specialist: DAVON OJEDA ([phone])[facility] ([facility])[address] [place] [address] [place] WBC (Bld) [#/Vol] 3.6 10*3/uL Normal 3.6-10.7 [facility] Comment on above: Performed By: #### L [id number] ####Transition Of Care Specialist: DAVON OJEDA ([phone])[facility] [place] (SBHLAB)[address] COMPREHENSIVE METABOLIC PANE Juan 08-30-2024 Albumin [Mass/Vol] 3.8 g/dL Normal 3.4-4.8 [facility] Comment on above: Performed By: #### L AB17, [id number] ####Transition Of Care Specialist: DAVON OJEDA ([phone])[facility] ([facility])[address] ALP [Catalytic activity/Vol] 92 U/L Normal 40-150 [facility] Comment on above: Performed By: #### L AB17, [id number] ####Transition Of Care Specialist: DAVON OJEDA ([phone])[facility] ([facility])[address] ALT [Catalytic activity/Vol] 19 U/L Normal <30 [facility] Comment on above: Performed By: #### L AB17, [id number] ####Transition Of Care Specialist: DAVON OJEDA ([phone])[facility] (SBHLAB)[address] Anion gap [Moles/Vol] 7 mmol/L Normal 3-13 [facility] Comment on above: Performed By: #### L AB17, [id number] ####Transition Of Care Specialist: DAVON OJEDA ([phone])[facility] ([facility])[address] AST [Catalytic activity/Vol] 25 U/L Normal <34 [facility] Comment on above: Performed By: #### L AB17, [id number] ####Transition Of Care Specialist: DAVON OJEDA ([phone])[facility] (SBHLAB)[address] Bilirubin [Mass/Vol] 0.5 mg/dL Normal <1.2 [facility] Comment on above: Performed By: #### L AB17, [id number] ####Transition Of Care Specialist: DAVON OJEDA ([phone])[facility]Did[facility] [place] ([facility])[address] Calcium [Mass/Vol] 8.6 mg/dL Low 8.8-10.0 [facility] Comment on above: Performed By: #### L AB17, [id number] ####Transition Of Care Specialist: DAVON OJEDA ([phone])[facility] [place] ([facility])[address] Chloride [Moles/Vol] 106 mmol/L Normal 98-107 [facility] Comment on above: Performed By: #### L AB17, [id number] ####Transition Of Care Specialist: DAVON OJEDA ([phone])[facility] [place] ([facility])[address] CO2 [Moles/Vol] 26 mmol/L Normal 23-31 [facility] Comment on above: Performed By: #### L AB17, [id number] ####Transition Of Care Specialist: DAVON OJEDA ([phone])[facility]ENTERDidier [facility] (SB[facility]AB)[address] Creatinine [Mass/Vol] 0.78 mg/dL Normal 0.57-1.11 [facility] Comment on above: Performed By: #### L AB17, [id number] ####Transition Of Care Specialist: DAVON OJEDA ([phone])[facility]Did[facility] [place] ([facility])[address] GLOMERULAR FILTRATION RATE ML/MIN/1.73 SQ M.PREDICTED 81.3 mL/min/1.73m*2 Normal >60.0 [facility] Comment on above: Result Comment: Calc ulation based on the Chronic Kidney Disease Epidemiology Collaboration (CKD-EPI) equation refit without adjustment for race Performed By: #### L AB17, [id number] ####Transition Of Care Specialist: DAVON OJEDA ([phone])[facility]ENTERDid[facility] [place] ([facility])[address] Glucose [Mass/Vol] 100 mg/dL Normal 82-115 [facility] Comment on above: Performed By: #### L AB17, [id number] ####Transition Of Care Specialist: DAVON OJEDA ([phone])[facility]ENTERDidier [place] (SBHLAB)[address] Potassium [Moles/Vol] 4.3 mmol/L Normal 3.5-5.1 [facility] Comment on above: Result Comment: [facility] potassium values may be up to 0.5 mmol/L lower than serum values. Performed By: #### L AB17, [id number] ####Transition Of Care Specialist: DAVON OJEDA ([phone])[facility]ENTERDid[facility] [place] (SBHLAB)[address] Protein [Mass/Vol] 7.0 g/dL Normal 6.4-8.3 [facility] Comment on above: Performed By: #### L AB17, [id number] ####Transition Of Care Specialist: DAVON OJEDA ([phone])[facility]ENTERDid[facility] CENTERRobert (SBHLAB)[address] Sodium [Moles/Vol] 139 mmol/L Normal 136-145 [facility] Comment on above: Performed By: #### L AB17, [id number] ####Transition Of Care Specialist: DAVON OJEDA ([phone])[facility] ([facility])[address] Urea nitrogen [Mass/Vol] 19 mg/dL Normal 9-23 [facility] Comment on above: Performed By: #### L AB17, [id number] ####Transition Of Care Specialist: DAVON OJEDA ([phone])[facility] (SBHLAB)[address] Comprehensive metabolic 1998 panelon 08-30-2024 Albumin [Mass/Vol] 3.8 g/dL 3.4 - 4.8 g/dL [facility] ALP [Catalytic activity/Vol] 92 U/L 40 - 150 U/L [facility] ALT [Catalytic activity/Vol] 19 U/L [facility] - 30 U/L [facility] Anion gap [Moles/Vol] 7 mmol/L 3 - 13 mmol/L [facility] AST [Catalytic activity/Vol] 25 U/L [facility] - 34 U/L [facility] Bilirubin [Mass/Vol] 0.5 mg/dL NINF - 1.2 mg/dL [facility] Calcium [Mass/Vol] 8.6 mg/dL Low 8.8 - 10. 0 mg/dL [facility] Chloride [Moles/Vol] 106 mmol/L 98 - 10 7 mmol/L [facility] CO2 [Moles/Vol] 26 mmol/L 23 - 31 mmol/L [facility] Creatinine [Mass/Vol] 0.78 mg/dL 0.57 - 1.11 mg/dL [facility] GFR/1.73 sq M.predicted (S/P/Bld) [Vol rate/Area] 81.3 mL/min - PINF [facility] Comment on above: Calculation based on the Chronic Kidney Disease Epidemiology Collaboration (CKD-EPI) equation refit without adjustment for race Glucose [Mass/Vol] 100 mg/dL 82 - 115 mg/dL [facility] Interpretation and review of laboratory results Abnormal [facility] Potassium [Moles/Vol] 4.3 mmol/L 3.5 - 5.1 mmol/L [facility] Comment on above: Plasma potassium kimberli ues may be up to 0.5 mmol/L lower than serum values. Protein [Mass/Vol] 7 g/dL 6.4 - 8.3 g/dL [facility] Sodium [Moles/Vol] 139 mmol/L 136 - 145 mmol/L [facility] Urea nitrogen [Mass/Vol] 19 mg/dL 9 - 23 mg/dL [facility] Laboratory - Chemistry and C hemistry - challengeon 08-30-2024 Cancer Ag 125 Qn 14.7 [arb'U]/mL 0.0 - 35 .0 U/mL [facility] No Panel Informationon 08-30 Interpretation and review of laboratory results Normal [facility] Testing performed on the [employer] using a two-step chemiluminescent microparticle immunoassay method. Results obtained by different methods should not be used interchangeably. A 10.75% increase in assay value is considered as a significant change. Results obtained by different methods should not be used interchangeably. The CA 125 result is based on a new assay and the results may not be comparable with assays run prior to 12/13/2022. [facility] Progress Noteon 08-30-2024 Progress Note Patient here for Keytruda, labs drawn via PIV. Patient denies any issues after last treatment. 1116 Ordered treatment completed. Patient discharged without any issues. Patient has a copy of next infusion appointment and verbalizes understanding. All questions answered. Normal [facility] Progress Noteon 08-28-2024 Progress Note Patient was identifi ed and seen today via Telehealth by agreement and consent. I used the following Telehealth technology: Audio and video capabilities. Patient location: Patient Location: Home. This patient encounter is appropriate and reasonable under the circumstances: transportation issues . The patient has been advised of the potential risks and limitations of this mode of treatment (including but not limited to the absence of in-person examination) and has agreed to be treated in a remote fashion in spite of them. Any and all of the patient's/patient's family's questions on this issue have been answered and I have made no promises or guarantees to the patient. The patient has also been advised to contact this office for worsening conditions or problems, and seek emergency medical treatment and/or call 911 if the patient deems either necessary. The patient stated that they are currently in the [facility]. If the patient is a minor, permission has been obtained by the parent or guardian for the patient to receive medical care at this visit. CC: She is here today for cycle 5 carbo/keytruda. 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 , was diagnosed with a stage III C1 endometrial cancer in June 2020. She was treated with robotic hysterectomy BSO sentinel lymph node sampling followed by chemotherapy with carboplatinum and Taxol and Herceptin in [place]. However the patient developed a severe reaction after the first course. This was in early September. The patient decided not to pursue any further chemotherapy after that point. CT A/P/C 10/15 was NILESH In February 2022 patient presented to the office complaining of a gregoria vaginal discharge. Exam revealed anterior vaginal wall replaced by malignancy. 03/11/22 Biopsy performed in office. Final Diagnosis VAGINA, BIOPSY- VAGINAL MUCOSAL FRAGMENTS WITH INVOLVEMENT BY HIGH GRADE SEROUS CARCINOMA. 03/16/22 PET showed positive for carcinoma Pt receiving Trastuzumab, Carboplatin, Abraxane, last dose 07/29/22 Patient was then started on Herceptin maintenance. PET scan September 2023 showed no evidence of recurrent disease. However PET scan in March 2024 showed evidence of periaortic safia recurrence. This was resected in the operating room , was positive for recurrent cancer. After discussion decided on chemotherapy with carboplatinum and Keytruda x 3 along with Keytruda maintenance. Patient presents today for cycle #5 of Keytruda. She reports that she is doing much better with treatment. She previously had considered stopping treatment, but is now feeling much better. Denies any grade 3 or 4 toxicities and has a good performance status (ECOG 0). Past Medical History: Diagnosis Date Cancer (CMS/HCC) (HCC) 07/15/2020 Endometrial Hx antineoplastic chemo 04/04/2022 ended july 2022 Osteoarthritis Osteopenia Past Surgical History: Procedure Laterality Date FRACTURE SURGERY Left 1973 ankle HEMORRHOID SURGERY HYSTERECTOMY KNEE SURGERY Right 1969 and 1970 open OTHER SURGICAL HISTORY 07/16/2020 [facility] BSO LND; Dr. Denis Richey SINUS SURGERY 2007 Social History Socioeconomic History Marital status: Single Tobacco Use Smoking status: Never Smokeless tobacco: Never Vaping Use Vaping status: Never Used Substance and Sexual Activity Alcohol use: Not Currently Drug use: Never Sexual activity: Not Currently Partners: Male Social Drivers of Health Financial Resource Strain: Low Risk (01/20/2023) Overall Financial Resource Strain (CARDIA) Difficulty of Paying Living Expenses: Not hard at all Food Insecurity: No Food Insecurity (01/20/2023) Hunger Vital Sign Worried About Running Out of Food in the Last Year: Never true Ran Out of Food in the Last Year: Never true Transportation Needs: No Transportation Needs (01/20/2023) PRAPARE - Transportation Lack of Transportation (Medical): No Lack of Transportation (Non-Medical): No Current Outpatient Medications Medication Sig Dispense Refill Alpha-Lipoic Acid 600 MG capsule Take by mouth daily. B Wdxixhg-M-Ltjwzdc (B-COMPLEX/VITAMIN C, W/ CA, PO) Take by mouth. multivitamin with minerals (Cerovite) 18-400 mg-mcg tablet tablet Take 1 tablet by mouth daily. ondansetron (Zofran) 8 MG tablet Take 1 tablet (8 mg) by mouth every 8 hours as needed for nausea or vomiting. 20 tablet 2 prochlorperazine (Compazine) 10 MG tablet Take 1 tablet (10 mg) by mouth every 6 hours as needed for nausea or vomiting. 30 tablet 2 saccharomyces boulardii (Florastor) 250 MG capsule Take 250 mg by mouth 2 times daily. No current facility-administered medications for this visit. Facility-Administered Medications Ordered in Other Visits Medication Dose Route Frequency Provider Last Rate Last Admin sodium chloride 0.9 % infusion 5-250 mL/hr IntraVENous Once PRN Denis Rincon (more content not included)... Normal [facility] 36on 08-07-2024 36 Oscar calling back, stating that the codes are still being rejected. Please call back at [phone] to further discuss, thank you! [facility] 36 Added chemo code to order and faxed with confirmation. [facility] 36 Pt needs new CA125 o rder. Current order has wrong code so Medicare won't cover labs. Please fax to Oscar at [facility] @ . Thank you [facility] Absolute lymphocyte countOrd ered By: Rosie Fuller on 08-07-2024 Lymphocytes Auto (Unsp spec) [#/Vol] 0.88 10*3/uL 0.83-4.51 [facility] Absolute neutrophil countOrd ered By: Rosie Fuller on 08-07-2024 Neutrophils (Bld) [#/Vol] 1.4 10*3/uL Low 2.0-7.7 [facility] Anion gap in Serum or Plasma Ordered By: Rosie Fuller on 08-07-2024 Anion gap [Moles/Vol] 9 mmol/L 5-15 [facility] Automated lymphocyte count a s percentage of total leukocytesOrdered By: Rosie Fuller on 08-07-2024 Lymphocytes/100 WBC Auto (Unsp spec) 33.2 % 19-41 [facility] BUN/creatinine ratioOrdered By: Rosie Fuller on 08-07-2024 Urea nitrogen/Creatinine [Mass ratio] 19.8 mg/mg 10-20 [facility] Basophil percentageOrdered B y: Rosie Fuller on 08-07-2024 Basophils/100 WBC (Bld) 0.4 % 0-1 [facility] Bilirubin, totalOrdered By: Rosie Fuller on 08-07-2024 Bilirubin [Mass/Vol] 0.34 mg/dL 0.00-1.30 [facility] CBC W/Diff, Automatedon 07-25 Absolute Lymph 0.88 X10 3/uL Normal 0.83-4.51 [facility] Comment on above: Performed By: #### L 500.4050, L100.0100, L506.0400, L501.9520 ####[facility] [address] [place], [address] Absolute Neut 1.4 X10 3/uL Low 2.0-7.7 [facility] Comment on above: Performed By: #### L 500.4050, L100.0100, L506.0400, L501.9520 ####[facility] [address] [place], [address] Basophils/100 WBC (Bld) 0.4 % Normal 0-1 [facility] Comment on above: Performed By: #### L 500.4050, L100.0100, L506.0400, L501.9520 ####[facility] [address] [place], [address] Eosinophils/100 WBC (Bld) 1.1 % Normal 0-5 [facility] Comment on above: Performed By: #### L 500.4050, L100.0100, L506.0400, L501.9520 ####[facility] [address] [place], [address] Erythrocyte distribution width (RBC) [Ratio] 16.0 % High 11.6-14.6 [facility] Comment on above: Performed By: #### L 500.4050, L100.0100, L506.0400, L501.9520 ####[facility] [address] [place], [address] Hematocrit (Bld) [Volume fraction] 31.3 % Low 37-47 [facility] Comment on above: Performed By: #### L 500.4050, L100.0100, L506.0400, L501.9520 ####[facility] [address] [place], [address] Hemoglobin (Bld) [Mass/Vol] 10.6 g/dL Low 12.0-15.0 [facility] Comment on above: Performed By: #### L 500.4050, L100.0100, L506.0400, L501.9520 ####[facility] [address] [place], [address] IG% 0.000 Normal 0.0-0.9 [facility] Comment on above: Result Comment: IG% - Immature Granulocytes (promyelocytes, myelocytes and metamyelocytes) > 1% indicates that a LEFT SHIFT is Present. Performed By: #### L 500.4050, L100.0100, L506.0400, L501.9520 ####[facility] [address] [place], [address] Lymphocytes/100 WBC (Bld) 33.2 % Normal 19-41 [facility] Comment on above: Performed By: #### L 500.4050, L100.0100, L506.0400, L501.9520 ####[facility] [address] [place], [address] MCH (RBC) [Entitic mass] 35.8 pg High 27.0-32.0 [facility] [facility] Comment on above: Performed By: #### L 500.4050, L100.0100, L506.0400, L501.9520 ####[facility] [address] [place], [address] MCHC (RBC) [Mass/Vol] 33.9 g/dL Normal 32-36 [facility] Comment on above: Performed By: #### L 500.4050, L100.0100, L506.0400, L501.9520 ####[facility] [address] [place], [address] MCV (RBC) [Entitic vol] 105.7 fL High 81-99 [facility] Comment on above: Performed By: #### L 500.4050, L100.0100, L506.0400, L501.9520 ####[facility] [address] [place], [address] Monocytes/100 WBC (Bld) 12.5 % High 0-10 [facility] Comment on above: Performed By: #### L 500.4050, L100.0100, L506.0400, L501.9520 ####[facility] [address] [place], [address] Neutrophils/100 WBC (Bld) 52.8 % Normal 47-70 [facility] Comment on above: Performed By: #### L 500.4050, L100.0100, L506.0400, L501.9520 ####[facility] [address] [place], [address] Nucleated RBC (Bld) [#/Vol] 0 10*3/uL Normal 0-5 [facility] Comment on above: Performed By: #### L 500.4050, L100.0100, L506.0400, L501.9520 ####[facility] [address] [place], [address] Platelet mean volume (Bld) [Entitic vol] 9.8 fL Normal 6.2-12.0 [facility] Comment on above: Performed By: #### L 500.4050, L100.0100, L506.0400, L501.9520 ####[facility] [address] [place], [address] Platelets (Bld) [#/Vol] 241 10*3/uL Normal 150-450 [facility] Comment on above: Performed By: #### L 500.4050, L100.0100, L506.0400, L501.9520 ####[facility] [address] [place], [address] RBC (Bld) [#/Vol] 2.96 10*6/uL Low 4.2-5.4 [facility] Comment on above: Performed By: #### L 500.4050, L100.0100, L506.0400, L501.9520 ####[facility] [address] [place], [address] RDW SD 62.4 fl High 35.1-43.9 [facility] Comment on above: Performed By: #### L 500.4050, L100.0100, L506.0400, L501.9520 ####[facility] [address] [place], [address] WBC (Bld) [#/Vol] 2.7 10*3/uL Low 4.4-11.0 [facility] Comment on above: Performed By: #### L 500.4050, L100.0100, L506.0400, L501.9520 ####[facility] [address] [place], [address] Carbon dioxide, total [Moles /volume] in Central venous bloodOrdered By: Rosie Fuller on 08-07-2024 CO2 [Moles/Vol] 25.3 mmol/L 21.0-32.0 [facility] Chloride assayOrdered By: Erasto Fuller on 08-07-2024 Chloride [Moles/Vol] 105 mmol/L 98-108 [facility] Comprehensive Metabolic Prof ilon 08-07-2024 Albumin [Mass/Vol] 4.2 g/dL Normal 3.4-4.8 [facility] Comment on above: Performed By: #### L 500.4050, L100.0100, L506.0400, L501.9520 ####[facility] [address] [place], [address] Albumin/Globulin [Mass ratio] 1.5 {ratio} Normal 0.9-2.4 [facility] Comment on above: Performed By: #### L 500.4050, L100.0100, L506.0400, L501.9520 ####[facility] [address] [place], [address] ALK PHOS 106 U/L High 35-104 [facility] Comment on above: Performed By: #### L 500.4050, L100.0100, L506.0400, L501.9520 ####[facility] [address] [place], [address] ALT [Catalytic activity/Vol] 18 U/L Normal <=34 [facility] Comment on above: Performed By: #### L 500.4050, L100.0100, L506.0400, L501.9520 ####[facility] [address] [place], [address] AST [Catalytic activity/Vol] 25 U/L Normal <=31 [facility] Comment on above: Performed By: #### L 500.4050, L100.0100, L506.0400, L501.9520 ####[facility] [address] [place], [address] Bilirubin [Mass/Vol] 0.34 mg/dL Normal 0.00-1.30 [facility] Comment on above: Performed By: #### L 500.4050, L100.0100, L506.0400, L501.9520 ####[facility] [address] [place], [address] BUN/CRE 19.8 RATIO Normal 10-20 [facility] Comment on above: Performed By: #### L 500.4050, L100.0100, L506.0400, L501.9520 ####[facility] [address] [place], [address] Calcium [Mass/Vol] 8.7 mg/dL Normal 7.6-11.0 [facility] Comment on above: Performed By: #### L 500.4050, L100.0100, L506.0400, L501.9520 ####[facility] [address] [place], [address] Chloride [Moles/Vol] 105 mmol/L Normal 98-108 [facility] Comment on above: Performed By: #### L 500.4050, L100.0100, L506.0400, L501.9520 ####[facility] [address] [place], [address] CO2 [Moles/Vol] 25.3 mmol/L Normal 21.0-32.0 [facility] Comment on above: Performed By: #### L 500.4050, L100.0100, L506.0400, L501.9520 ####[facility] [address] [place], [address] Creatinine [Mass/Vol] 0.77 mg/dL Normal 0.70-1.20 [facility] Comment on above: Performed By: #### L 500.4050, L100.0100, L506.0400, L501.9520 ####[facility] [address] [place], [address] GAP 9 Normal 5-15 [facility] Comment on above: Performed By: #### L 500.4050, L100.0100, L506.0400, L501.9520 ####[facility] [address] [place], [address] GFR/1.73 sq M.predicted among non-blacks MDRD (S/P/Bld) [Vol rate/Area] 82 mL/min/{1.73_m2} Normal >60 [facility] Comment on above: Result Comment: mL/m in/1.73m2 CKD-EPI Creatinine Equation (2020) Performed By: #### L 500.4050, L100.0100, L506.0400, L501.9520 ####[facility] [address] [place], [address] Globulin (S) [Mass/Vol] 2.8 g/dL Normal 2.2-4.2 [facility] Comment on above: Performed By: #### L 500.4050, L100.0100, L506.0400, L501.9520 ####[facility] [address] [place], [address] Glucose [Mass/Vol] 104 mg/dL High 70-99 [facility] Comment on above: Performed By: #### L 500.4050, L100.0100, L506.0400, L501.9520 ####[facility] [address] [place], [address] Potassium [Moles/Vol] 4.3 mmol/L Normal 3.3-5.1 [facility] Comment on above: Performed By: #### L 500.4050, L100.0100, L506.0400, L501.9520 ####[facility] [address] [place], [address] Sodium [Moles/Vol] 140 mmol/L Normal 133-145 [facility] Comment on above: Performed By: #### L 500.4050, L100.0100, L506.0400, L501.9520 ####[facility] [address] [place], [address] T PROT 7.0 g/dL Normal 5.9-8.4 [facility] Comment on above: Performed By: #### L 500.4050, L100.0100, L506.0400, L501.9520 ####[facility] [address] [place], [place], [address] Urea nitrogen [Mass/Vol] 15 mg/dL Normal 4-19 [facility] Comment on above: Performed By: #### L 500.4050, L100.0100, L506.0400, L501.9520 ####[facility] [address] [place], [address] Eosinophil percentageOrdered By: Rosie Fuller on 08-07-2024 Eosinophils/100 WBC (Bld) 1.1 % 0-5 [facility] Erythrocyte distribution wid th ratioOrdered By: Rosie Fuller on 08-07-2024 Erythrocyte distribution width (RBC) [Ratio] 16.0 % High 11.6-14.6 [facility] Erythrocyte distribution wid th standard deviationOrdered By: Rosie Fuller on 08-07-2024 Erythrocyte distribution width (RBC) [Ratio] 62.4 fl High 35.1-43.9 [facility] Glomerular filtration rate ( GFR) estimation/1.73 sq m using serum, plasma, or whole bOrdered By: Rosie Fuller on 08-07-2024 GFR/1.73 sq M.predicted among non-blacks MDRD (S/P/Bld) [Vol rate/Area] 82 mL/min/{1.73_m2} >60 [facility] Comment on above: mL/min/1.73m2 CKD-EP I Creatinine Equation (2020) Hematocrit Auto (Bld) [Volum e fraction]Ordered By: Rosie Fuller on 08-07-2024 Hematocrit (Bld) [Volume fraction] 31.3 % Low 37-47 [facility] Hemoglobin measurementOrdere d By: Rosie Fuller on 08-07-2024 Hemoglobin (Bld) [Mass/Vol] 10.6 g/dL Low 12.0-15.0 [facility] Immature granulocytes/100 WB C Auto (Bld)Ordered By: Rosie Fuller on 08-07-2024 Immature granulocytes/100 WBC (Bld) 0.000 % 0.0-0.9 [facility] Comment on above: IG% - Immature Granu locytes (promyelocytes, myelocytes and metamyelocytes) > 1% indicates that a LEFT SHIFT is Present. Laboratory - Chemistry and C hemistry - challengeOrdered By: Rosie Fuller on 08-07-2024 AST [Catalytic activity/Vol] 25 U/L <32 [facility] MCV (mean corpuscular volume ) determinationOrdered By: Rosie Fuller on 08-07-2024 MCV (RBC) [Entitic vol] 105.7 fL High 81-99 [facility] Mean corpuscular hemoglobin (MCH) determinationOrdered By: Rosie Fuller on 08-07-2024 MCH (RBC) [Entitic mass] 35.8 pg High 27.0-32.0 [facility] Mean corpuscular hemoglobin concentration (MCHC) determinationOrdered By: Rosie Fuller on 08-07-2024 MCHC (RBC) [Mass/Vol] 33.9 g/dL 32-36 [facility] Mean platelet volume determi nationOrdered By: Rosie Fuller on 08-07-2024 Platelet mean volume (Bld) [Entitic vol] 9.8 fL 6.2-12.0 [facility] Monocyte percentageOrdered B y: Rosie Fuller on 08-07-2024 Monocytes/100 WBC (Bld) 12.5 % High 0-10 [facility] Neutrophil percentageOrdered By: Rosie Fuller on 08-07-2024 Neutrophils/100 WBC (Bld) 52.8 % 47-70 [facility] Nucleated red blood cell per centageOrdered By: Rosie Fuller on 08-07-2024 Nucleated RBC/100 WBC (Bld) [Ratio] 0 % 0-5 [facility] Platelet countOrdered By: Erasto Fuller on 08-07-2024 Platelets (Bld) [#/Vol] 241 10*3/uL 150-450 [facility] Potassium measurement (mass/ volume)Ordered By: Rosie Fuller on 08-07-2024 Potassium (Unsp spec) [Mass/Vol] 4.3 mmol/L 3.3-5.1 [facility] RBC Auto (Bld) [#/Vol]Ordere d By: Rosie Fuller on 08-07-2024 RBC (Bld) [#/Vol] 2.96 10*6/uL Low 4.2-5.4 [facility] Serum creatinine measurement (mass/volume)Ordered By: Rosie Fuller on 08-07-2024 Creatinine [Mass/Vol] 0.77 mg/dL 0.70-1.20 [facility] Serum globulin measurementOr dered By: Rosie Fuller on 08-07-2024 Globulin (S) [Mass/Vol] 2.8 g/dL 2.2-4.2 [facility] Serum glucose measurement (m ass/volume)Ordered By: Rosie Fuller on 08-07-2024 Glucose [Mass/Vol] 104 mg/dL High 70-99 [facility] Serum or plasma alanine miguel otransferase (ALT) measurementOrdered By: Rosie Fuller on 08-07-2024 ALT [Catalytic activity/Vol] 18 U/L <35 [facility] Serum or plasma albumin tim urement (mass/volume)Ordered By: Rosie Fuller on 08-07-2024 Albumin [Mass/Vol] 4.2 g/dL 3.4-4.8 [facility] Serum or plasma albumin/glob ulin mass ratioOrdered By: Rosie Fuller on 08-07-2024 Albumin/Globulin [Mass ratio] 1.5 {ratio} 0.9-2.4 [facility] Serum or plasma alkaline fritz sphatase measurementOrdered By: Rosie Fuller on 08-07-2024 ALP [Catalytic activity/Vol] 106 U/L High 35-104 [facility] Serum or plasma calcium tim urement (mass/volume)Ordered By: Rosie Fuller on 08-07-2024 Calcium [Mass/Vol] 8.7 mg/dL 7.6-11.0 [facility] Serum or plasma urea nitroge n measurement (mass/volume)Ordered By: Rosie Fuller on 08-07-2024 Urea nitrogen [Mass/Vol] 15 mg/dL 4-19 [facility] Sodium levelOrdered By: Kelly Fuller on 08-07-2024 Sodium [Moles/Vol] 140 mmol/L 133-145 [facility] T4 Free Directon 08-07-2024 T4 FREE DIRECT 0.90 ng/dL Normal 0.76-1.46 [facility] Comment on above: Performed By: #### L 500.4050, L100.0100, L506.0400, L501.9520 ####[facility] [address] [place], [place], [id number] T4 freeOrdered By: Rosie weir on 08-07-2024 Free T4 [Mass/Vol] 0.90 ng/dL 0.76-1.46 [facility] TSH DL <= 0.005 mIU/L QnOrde red By: Rosie Fuller on 08-07-2024 TSH Qn 3.820 uIU/mL 0.300-4.20 0 [facility] Thyroid Stim Hormone (TSH)on 08-07-2024 TSH 3.820 uIU/mL Normal 0.300-4.20 0 [facility] Comment on above: Performed By: #### L 500.4050, L100.0100, L506.0400, L501.9520 ####[facility] [address] [place], [place], [id number] Total proteinOrdered By: Konstantin [facility] on 08-07-2024 Protein [Mass/Vol] 7.0 g/dL 5.9-8.4 [facility] White blood cell (WBC) count Ordered By: Rosie Fuller on 08-07-2024 WBC (Bld) [#/Vol] 2.7 10*3/uL Low 4.4-11.0 [facility] 36on 07-22-2024 36 Called patient denise ding her CA-125. She is doing better this week. I will recheck her thyroid function sooner since it was abnormal then normal Normal [facility] CA 125on 07-19-2024 Cancer Ag 125 Qn 17.5 [arb'U]/mL 0.0 - 35 .0 U/mL [facility] Testing performed on the [employer] using a two-step chemiluminescent microparticle immunoassay method. Results obtained by different methods should not be used interchangeably. A 10.75% increase in assay value is considered as a significant change. Results obtained by different methods should not be used interchangeably. The CA 125 result is based on a new assay and the results may not be comparable with assays run prior to 12/13/2022. [facility] CA 125 17.5 U/mL Normal 0.0-35.0 [facility] Comment on above: Result Comment: MAHENDRA Escamilla COMMENTS: Testing performed on the [employer] using a two-step chemiluminescent microparticle immunoassay method. Results obtained by different methods should not be used interchangeably. A 10.75% increase in assay value is considered as a significant change. Results obtained by different methods should not be used interchangeably. The CA 125 result is based on a new assay and the results may not be comparable with assays run prior to 12/13/2022. Performed By: #### L AB17, [id number], [id number] ####Transition Of Care Specialist: DAVON OJEDA ([phone])[facility] ([facility])[address] [place] [address] CBC W Auto Differential pane l (Bld)on 07-19-2024 Basophils (Bld) [#/Vol] 0 10*3/uL 0.0 - 0.2 10*3/uL [facility] Basophils/100 WBC (Bld) 0.3 % 0.0 - 2.0 % [facility] Eosinophils (Bld) [#/Vol] 0 10*3/uL 0.0 - 0.5 10*3/uL [facility] Eosinophils/100 WBC (Bld) 0.3 % 0.0 - 6.0 % [facility] Erythrocyte distribution width (RBC) [Ratio] 15.8 % High 11.5 - 15.0 % [facility] Hematocrit (Bld) [Volume fraction] 31.3 % Low 35.0 - 47.0 % [facility] Hemoglobin (Bld) [Mass/Vol] 10.5 g/dL Low 11.7 - 16.0 g/dL [facility] [place] Immature granulocytes (Bld) [#/Vol] 0 10*3/uL NINF - 0.1 10*3/uL [facility] Immature granulocytes/100 WBC (Bld) 0.3 % 0.0 - 2.0 % [facility] [place] Interpretation and review of laboratory results Abnormal [facility] [place] Lymphocytes (Bld) [#/Vol] 1 10*3/uL 1.0 - 4.3 10*3/uL [facility] [place] Lymphocytes/100 WBC (Bld) 33 % 15.0 - 45.0 % [facility] [place] MCH (RBC) [Entitic mass] 33.9 pg 26. 0 - 34.0 pg [facility] MCHC (RBC) [Mass/Vol] 33.5 % 30.5 - 36.0 % [facility] [place] MCV (RBC) [Entitic vol] 101 fL High 77.0 - 99.0 fL [facility] [place] Monocytes (Bld) [#/Vol] 0.3 10*3/uL 0.0 - 0.9 10*3/uL [facility] [place] Monocytes/100 WBC (Bld) 10 % 5.0 - 13.0 % [facility] Neutrophils (Bld) [#/Vol] 1.6 10*3/uL Low 1.8 - 7.5 10*3/uL [facility] Neutrophils/100 WBC (Bld) 56.1 % 38.0 - 82.0 % [facility] Nucleated RBC/100 WBC (Bld) [Ratio] 0 % [facility] Platelet mean volume (Bld) [Entitic vol] 9.7 fL 9.0 - 12.7 fL [facility] [place] Platelets (Bld) [#/Vol] 118 10*3/uL Low 140 - 440 10*3/uL [facility] RBC (Bld) [#/Vol] 3.1 10*6/uL Low 3.80 - 5.20 10*6/uL [facility] WBC (Bld) [#/Vol] 2.9 10*3/uL Low 3.6 - 10.7 10*3/uL [facility] CBC WITH AUTO DIFFERENTIALon 07-19-2024 Basophils (Bld) [#/Vol] 0.0 10*3/uL Normal 0.0-0.2 [facility] Comment on above: Performed By: #### L [id number] ####Transition Of Care Specialist: DAVON COLORADOAbrilJERRY ([phone])[facility] ([facility])[address] Basophils/100 WBC (Bld) 0.3 % Normal 0.0-2.0 [facility] Comment on above: Performed By: #### L [id number] ####Transition Of Care Specialist: DAVON PEREZJERRY ([phone])[facility] ([facility])[address] Eosinophils (Bld) [#/Vol] 0.0 10*3/uL Normal 0.0-0.5 [facility] Comment on above: Performed By: #### L [id number] ####Transition Of Care Specialist: DAVON RUSTY ([phone])[facility] ([facility])[address] Eosinophils/100 WBC (Bld) 0.3 % Normal 0.0-6.0 [facility] Comment on above: Performed By: #### L [id number] ####Transition Of Care Specialist: DAVON PEREZJERRY ([phone])[facility] ([facility])[address] Erythrocyte distribution width (RBC) [Ratio] 15.8 % High 11.5-15.0 [facility] Comment on above: Performed By: #### L [id number] ####Transition Of Care Specialist: DAVON PEREZJERRY ([phone])[facility] ([facility])[address] Hematocrit (Bld) [Volume fraction] 31.3 % Low 35.0-47.0 [facility] Comment on above: Performed By: #### L [id number] ####Transition Of Care Specialist: DAVON PEREZJERRY ([phone])[facility] ([facility])[address] Hemoglobin (Bld) [Mass/Vol] 10.5 g/dL Low 11.7-16.0 [facility] Comment on above: Performed By: #### L [id number] ####Transition Of Care Specialist: DAVON OJEDA ([id number])[facility] CORPORATIONRobert (SBHLAB)[address] IMMATURE GRANS % 0.3 % Normal 0.0-2.0 [facility] Comment on above: Performed By: #### L [id number] ####Transition Of Care Specialist: DAVON OJEDA ([phone])[facility] ([facility])[address] IMMATURE GRANS ABSOLUTE 0.0 10*3/uL Normal <0.1 [facility] Comment on above: Performed By: #### L [id number] ####Transition Of Care Specialist: DAVON OJEDA ([phone])[facility] ([facility])[address] [place] [address] Lymphocytes (Bld) [#/Vol] 1.0 10*3/uL Normal 1.0-4.3 [facility] Comment on above: Performed By: #### L [id number] ####Transition Of Care Specialist: DAVON OJEDA ([phone])[facility] ([facility])[address] Lymphocytes/100 WBC (Bld) 33.0 % Normal 15.0-45.0 [facility] Comment on above: Performed By: #### L [id number] ####Transition Of Care Specialist: DAVON OJEDA ([id number])[facility] ([facility])[address] MCH (RBC) [Entitic mass] 33.9 pg Normal 26.0-34.0 [facility] Comment on above: Performed By: #### L [id number] ####Transition Of Care Specialist: DAVON OJEDA ([phone])[facility] ([facility])[address] MCHC 33.5 % Normal 30.5-36.0 [facility] Comment on above: Performed By: #### L [id number] ####Transition Of Care Specialist: DAVON OJEDA ([phone])[facility] ([facility])[address] MCV (RBC) [Entitic vol] 101.0 fL High 77.0-99.0 [facility] Comment on above: Performed By: #### L [id number] ####Transition Of Care Specialist: DAVON OJEDA ([phone])[facility] ([facility])[address] Monocytes (Bld) [#/Vol] 0.3 10*3/uL Normal 0.0-0.9 [facility] Comment on above: Performed By: #### L [id number] ####Transition Of Care Specialist: DAVON OJEDA ([phone])[facility] ([facility])[address] Monocytes/100 WBC (Bld) 10.0 % Normal 5.0-13.0 [facility] Comment on above: Performed By: #### L [id number] ####Transition Of Care Specialist: DAVON OJEDA ([phone])[facility] ([facility])[address] NEUTROPHILS ABSOLUTE 1.6 10*3/uL Low 1.8-7.5 [facility] Comment on above: Performed By: #### L [id number] ####Transition Of Care Specialist: DAVON OJEDA ([phone])[facility] ([facility])[address] Neutrophils/100 WBC (Bld) 56.1 % Normal 38.0-82.0 [facility] Comment on above: Performed By: #### L [id number] ####Transition Of Care Specialist: DAVON OJEDA ([phone])[facility] ([facility])[address] NRBC 0.0 /100 WBCs Normal 0.0-2.0 [facility] Comment on above: Performed By: #### L [id number] ####Transition Of Care Specialist: DAVON COLORADOAbrilJERRY ([phone])TEOFILO ANDERSONRobert (SBHLAB)[address] Platelet mean volume (Bld) [Entitic vol] 9.7 fL Normal 9.0-12.7 [facility] Comment on above: Performed By: #### L [id number] ####Transition Of Care Specialist: DAVON RUSTY ([id number])TEOFILO ANDERSONN (SB[facility])[address] Platelets (Bld) [#/Vol] 118 10*3/uL Low 140-440 [facility] Comment on above: Performed By: #### L [id number] ####Transition Of Care Specialist: DAVON RUSTY ([phone])[facility] CANC[facility] CENTERDidier ANDERSONN (SBHLAB)[address] RBC (Bld) [#/Vol] 3.10 10*6/uL Low 3.80-5.20 [facility] Comment on above: Performed By: #### L [id number] ####Transition Of Care Specialist: DAVON RUSTY ([phone])[facility] CAN[facility] CENTERDidier ANDERSONN (SBHLAB)[address] WBC (Bld) [#/Vol] 2.9 10*3/uL Low 3.6-10.7 [facility] Comment on above: Performed By: #### L [id number] ####Transition Of Care Specialist: DAVON OJEDA ([phone])[facility] CANC[facility] CENTERDidier SANZLYNDAN (SBHLAB)[address] COMPREHENSIVE METABOLIC PANE Juan 07-19-2024 Albumin [Mass/Vol] 4.0 g/dL Normal 3.4-4.8 [facility] Comment on above: Performed By: #### L AB17, [id number], [id number] ####Transition Of Care Specialist: DAVON PEREZJERRY ([phone])[facility] CAN[facility] CENTERDidier ANDERSONN (SBHLAB)[address] ALP [Catalytic activity/Vol] 96 U/L Normal 40-150 [facility] Comment on above: Performed By: #### L AB17, [id number], [id number] ####Transition Of Care Specialist: DAVON OJEDA ([phone])[facility] CAN[facility] CENTERDidier GOMEZ (SBHLAB)[address] ALT [Catalytic activity/Vol] 26 U/L Normal <30 [facility] Comment on above: Performed By: #### L AB17, [id number], [id number] ####Transition Of Care Specialist: DAVON OJEDA ([phone])[facility] CAN[facility] CENTERDidier SANZTSA[facility]ALTH CENTERN (SBHLAB)[address] Anion gap [Moles/Vol] 7 mmol/L Normal 3-13 [facility] Comment on above: Performed By: #### L AB17, [id number], [id number] ####Transition Of Care Specialist: DAVON OJEDA ([phone])[facility] CENTERDidier [facility]CARON[facility] (SBHLAB)[address] AST [Catalytic activity/Vol] 31 U/L Normal <34 [facility] Comment on above: Performed By: #### L AB17, [id number], [id number] ####Transition Of Care Specialist: DAVON OJEDA ([phone])[facility] CAN[facility] CENTERDidier ANDERSONRobert (HLAB)[address] Bilirubin [Mass/Vol] 0.5 mg/dL Normal <1.2 [facility] Comment on above: Performed By: #### L AB17, [id number], [id number] ####Transition Of Care Specialist: DAVON OJEDA ([phone])[facility] CENTERDidier [facility] ([facility])[address] Calcium [Mass/Vol] 8.7 mg/dL Low 8.8-10.0 [facility] Comment on above: Performed By: #### L AB17, [id number], [id number] ####Transition Of Care Specialist: DAVON OJEDA ([phone])[facility] CENTERDidier [facility] ([facility] Chloride [Moles/Vol] 107 mmol/L Normal 98-107 [facility] Comment on above: Performed By: #### L AB17, [id number], [id number] ####Transition Of Care Specialist: DAVONFLORENTIN OJEDA ([phone])[facility] (SBHLAB)[address] CO2 [Moles/Vol] 27 mmol/L Normal 23-31 [facility] Comment on above: Performed By: #### L AB17, [id number], [id number] ####Transition Of Care Specialist: DAVON RUSTY ([phone])[facility] (SBHLAB)[address] Creatinine [Mass/Vol] 0.80 mg/dL Normal 0.57-1.11 [facility] Comment on above: Performed By: #### L AB17, [id number], [id number] ####Transition Of Care Specialist: DAVON RUSTY ([phone])[facility] ([facility])[address] [place] [address] GLOMERULAR FILTRATION RATE ML/MIN/1.73 SQ M.PREDICTED 78.9 mL/min/1.73m*2 Normal >60.0 [facility] Comment on above: Result Comment: Calc ulation based on the Chronic Kidney Disease Epidemiology Collaboration (CKD-EPI) equation refit without adjustment for race Performed By: #### L AB17, [id number], [id number] ####Transition Of Care Specialist: DAVON RUSTY ([phone])[facility] [place] [address] Glucose [Mass/Vol] 101 mg/dL Normal 82-115 [facility] Comment on above: Performed By: #### L AB17, [id number], [id number] ####Transition Of Care Specialist: DAVON RUSTY ([phone])[facility] Potassium [Moles/Vol] 4.3 mmol/L Normal 3.5-5.1 [facility] Comment on above: Result Comment: [facility] potassium values may be up to 0.5 mmol/L lower than serum values. Performed By: #### L AB17, [id number], EEP059 ####Transition Of Care Specialist: DAVON HOLDERCER ([phone])[facility]A [facility] ([facility])[address] Protein [Mass/Vol] 7.3 g/dL Normal 6.4-8.3 [facility] Comment on above: Performed By: #### L AB17, [id number], [id number] ####Transition Of Care Specialist: DAVON COLORADOAbrilJERRY ([phone])[facility]ENTERA [facility] ([facility])[address] Sodium [Moles/Vol] 141 mmol/L Normal 136-145 [facility] Comment on above: Performed By: #### L AB17, [id number], [id number] ####Transition Of Care Specialist: DAVON HOLDERCER ([phone])[facility]ENTERDid[facility] ([facility])[address] [place] [address] Urea nitrogen [Mass/Vol] 20 mg/dL Normal 9-23 [facility] Comment on above: Performed By: #### L AB17, [id number], [id number] ####Transition Of Care Specialist: DAVON COLORADOMANE ([phone])[facility] (SBHLAB)[address] Comprehensive metabolic 1998 panelon 07-19-2024 Albumin [Mass/Vol] 4 g/dL 3.4 - 4.8 g/dL [facility] ALP [Catalytic activity/Vol] 96 U/L 40 - 150 U/L [facility] ALT [Catalytic activity/Vol] 26 U/L NINF - 30 U/L [facility] Anion gap [Moles/Vol] 7 mmol/L 3 - 13 mmol/L [facility] AST [Catalytic activity/Vol] 31 U/L NINF - 34 U/L [facility] Bilirubin [Mass/Vol] 0.5 mg/dL NINF - 1.2 mg/dL [facility] Calcium [Mass/Vol] 8.7 mg/dL Low 8.8 - 10. 0 mg/dL [facility] Chloride [Moles/Vol] 107 mmol/L 98 - 10 7 mmol/L [facility] CO2 [Moles/Vol] 27 mmol/L 23 - 31 mmol/L [facility] Creatinine [Mass/Vol] 0.8 mg/dL 0.57 - 1.11 mg/dL [facility] GFR/1.73 sq M.predicted (S/P/Bld) [Vol rate/Area] 78.9 mL/min - PINF [facility] Comment on above: Calculation based on the Chronic Kidney Disease Epidemiology Collaboration (CKD-EPI) equation refit without adjustment for race Glucose [Mass/Vol] 101 mg/dL 82 - 115 mg/dL [facility] Interpretation and review of laboratory results Abnormal [facility] Potassium [Moles/Vol] 4.3 mmol/L 3.5 - 5.1 mmol/L [facility] Comment on above: Plasma potassium kimberli ues may be up to 0.5 mmol/L lower than serum values. Protein [Mass/Vol] 7.3 g/dL 6.4 - 8.3 g/dL [facility] Sodium [Moles/Vol] 141 mmol/L 136 - 145 mmol/L [facility] Urea nitrogen [Mass/Vol] 20 mg/dL 9 - 23 mg/dL [facility] No Panel Informationon 07-19 Interpretation and review of laboratory results Normal [facility] Progress Noteon 07-19-2024 Progress Note 1125: Patient here f or maintenace Keytruda treatment. PIVplaced in R. AC. With specimen collected and sent to lab. 1200: Labs resulted and parameters met. Patient proceeding with treatment. 1315: Ordered treatment completed. Patient discharged without any issues. Patient has a copy of next infusion appointment and verbalizes understanding. All questions answered. Normal [facility] THYROID STIMULATING HORMONEo n 07-19-2024 THYROID STIMULATING HORMONE 2.16 uIU/mL Normal 0.35-4.94 [facility] Comment on above: Performed By: #### L AB17, [id number], [id number] ####Transition Of Care Specialist: DAVON OJEDA ([phone])[facility] ([facility])[address] [place] [address] TSHon 07-19-2024 TSH Qn 2.16 m[IU]/L [facility] T4 Free Directon 07-17-2024 T4 FREE DIRECT 0.90 ng/dL Normal 0.76-1.46 [facility] Comment on above: Order Comment: ADD O N FT4N Performed By: #### L 100.0100, L506.0400, L500.4050, L501.9520 ####[facility] [id number] [place], [address] 36on 07-16-2024 36 Spoke to patient and she is going to the lab to have her free T4 drawn today. We will call her with the results tomorrow. Normal [facility] 36 Spoke to patient and she states that she is having heartburn and fullness in her chest and weight gain since she started the keytruda. She states she tried pepcid and tums with no help. She states it wakes her up. Her last TSH was 4.5 on 06/28/24. She states she may not want to continue tx because of how she feels. Normal [facility] Absolute lymphocyte countOrd ered By: Rosie Fuller on 07-16-2024 Lymphocytes Auto (Unsp spec) [#/Vol] 1.13 10*3/uL 0.83-4.51 [facility] Absolute neutrophil countOrd ered By: Rosie Fuller on 07-16-2024 Neutrophils (Bld) [#/Vol] 1.1 10*3/uL Low 2.0-7.7 [facility] Anion gap in Serum or Plasma Ordered By: Rosie Fuller on 07-16-2024 Anion gap [Moles/Vol] 11 mmol/L 5-15 [facility] Automated lymphocyte count a s percentage of total leukocytesOrdered By: Rosie Fuller on 07-16-2024 Lymphocytes/100 WBC Auto (Unsp spec) 45.4 % High 19-41 [facility] BUN/creatinine ratioOrdered By: Rosie Fuller on 07-16-2024 Urea nitrogen/Creatinine [Mass ratio] 23.2 mg/mg High 10-20 [facility] Basophil percentageOrdered B y: Rosie Fuller on 07-16-2024 Basophils/100 WBC (Bld) 0.4 % 0-1 [facility] Bilirubin, totalOrdered By: Rosie Fuller on 07-16-2024 Bilirubin [Mass/Vol] 0.19 mg/dL 0.00-1.30 [facility] CBC W/Diff, Automatedon 04-2 -2024 Absolute Lymph 1.13 X10 3/uL Normal 0.83-4.51 [facility] Comment on above: Performed By: #### L 100.0100, L506.0400, L500.4050, L501.9520 #### [facility] [address] [place], [address] Absolute Neut 1.1 X10 3/uL Low 2.0-7.7 [facility] Comment on above: Performed By: #### L 100.0100, L506.0400, L500.4050, L501.9520 #### [facility] [address] [place], [address] Basophils/100 WBC (Bld) 0.4 % Normal 0-1 [facility] Comment on above: Performed By: #### L 100.0100, L506.0400, L500.4050, [id number] #### [facility] [address] [place], [address] Eosinophils/100 WBC (Bld) 0.4 % Normal 0-5 [facility] Comment on above: Performed By: #### L 100.0100, L506.0400, L500.4050, [id number] #### [facility] [address] [place], [address] Erythrocyte distribution width (RBC) [Ratio] 15.9 % High 11.6-14.6 [facility] Comment on above: Performed By: #### L 100.0100, L506.0400, L500.4050, [id number] #### [facility] [address] [place], [address] Hematocrit (Bld) [Volume fraction] 28.4 % Low 37-47 [facility] Comment on above: Performed By: #### L 100.0100, L506.0400, L500.4050, L501.9520 #### [facility] [address] [place], [address] Hemoglobin (Bld) [Mass/Vol] 9.8 g/dL Low 12.0-15.0 [facility] Comment on above: Performed By: #### L 100.0100, L506.0400, L500.4050, L501.9520 #### [facility] [address] [place], [address] IG% 0.000 Normal 0.0-0.9 [facility] Comment on above: Result Comment: IG% - Immature Granulocytes (promyelocytes, myelocytes and metamyelocytes) > 1% indicates that a LEFT SHIFT is Present. Performed By: #### L 100.0100, L506.0400, L500.4050, L501.9520 #### [facility] [address] [place], [address] Lymphocytes/100 WBC (Bld) 45.4 % High 19-41 [facility] Comment on above: Performed By: #### L 100.0100, L506.0400, L500.4050, [id number] #### [facility] [address] [place], [address] MCH (RBC) [Entitic mass] 34.5 pg High 27.0-32.0 [facility] Comment on above: Performed By: #### L 100.0100, L506.0400, L500.4050, L501.9520 #### [facility] [address] [place], [address] MCHC (RBC) [Mass/Vol] 34.5 g/dL Normal 32-36 [facility] Comment on above: Performed By: #### L 100.0100, L506.0400, L500.4050, L501.9520 #### [facility] [address] [place], [address] MCV (RBC) [Entitic vol] 100.0 fL High 81-99 [facility] Comment on above: Performed By: #### L 100.0100, L506.0400, L500.4050, [id number] #### [facility] [address] [place], [address] Monocytes/100 WBC (Bld) 10.0 % Normal 0-10 [facility] Comment on above: Performed By: #### L 100.0100, L506.0400, L500.4050, [id number] #### [facility] [address] [place], [address] Neutrophils/100 WBC (Bld) 43.8 % Low 47-70 [facility] Comment on above: Performed By: #### L 100.0100, L506.0400, L500.4050, [id number] #### [facility] [address] [place], [address] Nucleated RBC (Bld) [#/Vol] 0 10*3/uL Normal 0-5 [facility] Comment on above: Performed By: #### L 100.0100, L506.0400, L500.4050, L501.9520 #### [facility] [address] [place], [address] Platelet mean volume (Bld) [Entitic vol] 9.6 fL Normal 6.2-12.0 [facility] Comment on above: Performed By: #### L 100.0100, L506.0400, L500.4050, [id number] #### [facility] [address] [place], [address] Platelets (Bld) [#/Vol] 142 10*3/uL Low 150-450 [facility] Comment on above: Performed By: #### L 100.0100, L506.0400, L500.4050, [id number] #### [facility] [address] [place], [address] RBC (Bld) [#/Vol] 2.84 10*6/uL Low 4.2-5.4 [facility] Comment on above: Performed By: #### L 100.0100, L506.0400, L500.4050, [id number] #### [facility] [address] [place], [address] RDW SD 57.2 fl High 35.1-43.9 [facility] Comment on above: Performed By: #### L 100.0100, L506.0400, L500.4050, [id number] #### [facility] [address] [place], [address] WBC (Bld) [#/Vol] 2.5 10*3/uL Low 4.4-11.0 [facility] Comment on above: Performed By: #### L 100.0100, L506.0400, L500.4050, L501.9520 #### [facility] [address] [place], [address] Carbon dioxide, total [Moles /volume] in Central venous bloodOrdered By: Rosie Fuller on 07-16-2024 CO2 [Moles/Vol] 24.5 mmol/L 21.0-32.0 [facility] Chloride assayOrdered By: rEasto Fuller on 07-16-2024 Chloride [Moles/Vol] 105 mmol/L 98-108 [facility] Comprehensive Metabolic Prof ilon 07-16-2024 Albumin [Mass/Vol] 4.1 g/dL Normal 3.4-4.8 [facility] Comment on above: Performed By: #### L 100.0100, L506.0400, L500.4050, L501.9520 #### [facility] [address] [place], [address] Albumin/Globulin [Mass ratio] 1.5 {ratio} Normal 0.9-2.4 [facility] Comment on above: Performed By: #### L 100.0100, L506.0400, L500.4050, L501.9520 #### [facility] [address] [place], [address] ALK PHOS 101 U/L Normal 35-104 [facility] Comment on above: Performed By: #### L 100.0100, L506.0400, L500.4050, L501.9520 #### [facility] [address] [place], [address] ALT [Catalytic activity/Vol] 20 U/L Normal <=34 [facility] Comment on above: Performed By: #### L 100.0100, L506.0400, L500.4050, L501.9520 #### [facility] [address] [place], [address] AST [Catalytic activity/Vol] 25 U/L Normal <=31 [facility] Comment on above: Performed By: #### L 100.0100, L506.0400, L500.4050, L501.9520 #### [facility] [address] [place], [address] Bilirubin [Mass/Vol] 0.19 mg/dL Normal 0.00-1.30 [facility] Comment on above: Performed By: #### L 100.0100, L506.0400, L500.4050, L501.9520 #### [facility] [address] [place], [address] BUN/CRE 23.2 RATIO High 10-20 [facility] Comment on above: Performed By: #### L 100.0100, L506.0400, L500.4050, L501.9520 #### [facility] [address] [place], [address] Calcium [Mass/Vol] 8.6 mg/dL Normal 7.6-11.0 [facility] Comment on above: Performed By: #### L 100.0100, L506.0400, L500.4050, L501.9520 #### [facility] [address] [place], [address] Chloride [Moles/Vol] 105 mmol/L Normal 98-108 [facility] Comment on above: Performed By: #### L 100.0100, L506.0400, L500.4050, L501.9520 #### [facility] [address] [place], [address] CO2 [Moles/Vol] 24.5 mmol/L Normal 21.0-32.0 [facility] Comment on above: Performed By: #### L 100.0100, L506.0400, L500.4050, L501.9520 #### [facility] [address] [place], [address] Creatinine [Mass/Vol] 0.76 mg/dL Normal 0.70-1.20 [facility] Comment on above: Performed By: #### L 100.0100, L506.0400, L500.4050, L501.9520 #### [facility] [address] [place], [address] GAP 11 Normal 5-15 [facility] Comment on above: Performed By: #### L 100.0100, L506.0400, L500.4050, L501.9520 #### [facility] [address] [place], [address] GFR/1.73 sq M.predicted among non-blacks MDRD (S/P/Bld) [Vol rate/Area] 84 mL/min/{1.73_m2} Normal >60 [facility] Comment on above: Result Comment: mL/m in/1.73m2 CKD-EPI Creatinine Equation (2020) Performed By: #### L 100.0100, L506.0400, L500.4050, L501.9520 #### [facility] [address] [place], [address] Globulin (S) [Mass/Vol] 2.8 g/dL Normal 2.2-4.2 [facility] Comment on above: Performed By: #### L 100.0100, L506.0400, L500.4050, L501.9520 #### [facility] [address] [place], [address] Glucose [Mass/Vol] 97 mg/dL Normal 70-99 [facility] Comment on above: Performed By: #### L 100.0100, L506.0400, L500.4050, L501.9520 #### [facility] [address] [place], [address] Potassium [Moles/Vol] 3.8 mmol/L Normal 3.3-5.1 [facility] Comment on above: Performed By: #### L 100.0100, L506.0400, L500.4050, L501.9520 #### [facility] [address] [place], [address] Sodium [Moles/Vol] 140 mmol/L Normal 133-145 [facility] Comment on above: Performed By: #### L 100.0100, L506.0400, L500.4050, L501.9520 #### [facility] [address] [place], [address] T PROT 6.8 g/dL Normal 5.9-8.4 [facility] Comment on above: Performed By: #### L 100.0100, L506.0400, L500.4050, L501.9520 #### [facility] [address] [place], [address] Urea nitrogen [Mass/Vol] 18 mg/dL Normal 4-19 [facility] Comment on above: Performed By: #### L 100.0100, L506.0400, L500.4050, L501.9520 #### [facility] [address] [place], [address] Eosinophil percentageOrdered By: Rosie Fuller on 07-16-2024 Eosinophils/100 WBC (Bld) 0.4 % 0-5 [facility] Erythrocyte distribution wid th (RBC) [Ratio]Ordered By: Rosie Fuller on 07-16-2024 Erythrocyte distribution width (RBC) [Entitic vol] 57.2 fL High 35.1-43.9 [facility] Erythrocyte distribution wid th ratioOrdered By: Rosie Fuller on 07-16-2024 Erythrocyte distribution width (RBC) [Ratio] 15.9 % High 11.6-14.6 [facility] Erythrocyte distribution wid th standard deviationOrdered By: Rosie Fuller on 07-16-2024 Erythrocyte distribution width (RBC) [Ratio] 57.2 fl High 35.1-43.9 [facility] GFR/1.73 sq M.predicted vandana g non-blacks MDRD (S/P/Bld) [Vol rate/Area]Ordered By: Rosie Fuller on 07-16-2024 Estimated GFR (MDRD) Non-Af Amer 84 >60 [facility] Comment on above: mL/min/1.73m2 CKD-EP I Creatinine Equation (2020) Glomerular filtration rate ( GFR) estimation/1.73 sq m using serum, plasma, or whole bOrdered By: Rosie Fuller on 07-16-2024 GFR/1.73 sq M.predicted among non-blacks MDRD (S/P/Bld) [Vol rate/Area] 84 mL/min/{1.73_m2} >60 [facility] Comment on above: mL/min/1.73m2 CKD-EP I Creatinine Equation (2020) Hematocrit Auto (Bld) [Volum e fraction]Ordered By: Rosie Fuller on 07-16-2024 Hematocrit (Bld) [Volume fraction] 28.4 % Low 37-47 [facility] Hemoglobin measurementOrdere d By: Rosie Fuller on 07-16-2024 Hemoglobin (Bld) [Mass/Vol] 9.8 g/dL Low 12.0-15.0 [facility] Immature granulocytes/100 WB C Auto (Bld)Ordered By: Rosie Fuller on 07-16-2024 Immature granulocytes/100 WBC (Bld) 0.000 % 0.0-0.9 [facility] Comment on above: IG% - Immature Granu locytes (promyelocytes, myelocytes and metamyelocytes) > 1% indicates that a LEFT SHIFT is Present. Laboratory - Chemistry and C hemistry - challengeOrdered By: Rosie Fuller on 07-16-2024 AST [Catalytic activity/Vol] 25 U/L <32 [facility] Lymphocytes Auto (Unsp spec) [#/Vol]Ordered By: Rosie Fuller on 07-16-2024 Lymphocytes (Bld) [#/Vol] 1.13 10*3/uL 0.83-4.51 [facility] Lymphocytes/100 WBC Auto (Un sp spec)Ordered By: Rosie Fuller on 07-16-2024 Lymphocytes/100 WBC (Bld) 45.4 % High 19-41 [facility] MCV (mean corpuscular volume ) determinationOrdered By: Rosie Fuller on 07-16-2024 MCV (RBC) [Entitic vol] 100.0 fL High 81-99 [facility] Mean corpuscular hemoglobin (MCH) determinationOrdered By: Rosie Fuller on 07-16-2024 MCH (RBC) [Entitic mass] 34.5 pg High 27.0-32.0 [facility] Mean corpuscular hemoglobin concentration (MCHC) determinationOrdered By: Rosie Fuller on 07-16-2024 MCHC (RBC) [Mass/Vol] 34.5 g/dL 32-36 [facility] Mean platelet volume determi nationOrdered By: Rosie Fuller on 07-16-2024 Platelet mean volume (Bld) [Entitic vol] 9.6 fL 6.2-12.0 [facility] Monocyte percentageOrdered B y: Rosie Fuller on 07-16-2024 Monocytes/100 WBC (Bld) 10.0 % 0-10 [facility] Neutrophil percentageOrdered By: Rosie Fuller on 07-16-2024 Neutrophils/100 WBC (Bld) 43.8 % Low 47-70 [facility] Nucleated red blood cell per centageOrdered By: Rosie Fuller on 07-16-2024 Nucleated RBC/100 WBC (Bld) [Ratio] 0 % 0-5 [facility] Platelet countOrdered By: Erasto Fuller on 07-16-2024 Platelets (Bld) [#/Vol] 142 10*3/uL Low 150-450 [facility] Potassium (Unsp spec) [Mass/ Vol]Ordered By: Rosie Fuller on 07-16-2024 Potassium [Moles/Vol] 3.8 mmol/L 3.3-5.1 [facility] Potassium measurement (mass/ volume)Ordered By: Rosie Fuller on 07-16-2024 Potassium (Unsp spec) [Mass/Vol] 3.8 mmol/L 3.3-5.1 [facility] RBC Auto (Bld) [#/Vol]Ordere d By: Rosie Fuller on 07-16-2024 RBC (Bld) [#/Vol] 2.84 10*6/uL Low 4.2-5.4 [facility] Serum creatinine measurement (mass/volume)Ordered By: Rosie Fuller on 07-16-2024 Creatinine [Mass/Vol] 0.76 mg/dL 0.70-1.20 [facility] Serum globulin measurementOr dered By: Rosie Fuller on 07-16-2024 Globulin (S) [Mass/Vol] 2.8 g/dL 2.2-4.2 [facility] Serum glucose measurement (m ass/volume)Ordered By: Rosie Fuller on 07-16-2024 Glucose [Mass/Vol] 97 mg/dL 70-99 [facility] Serum or plasma alanine miguel otransferase (ALT) measurementOrdered By: Rosie Fuller on 07-16-2024 ALT [Catalytic activity/Vol] 20 U/L <35 [facility] Serum or plasma albumin tim urement (mass/volume)Ordered By: Rosie Fuller on 07-16-2024 Albumin [Mass/Vol] 4.1 g/dL 3.4-4.8 [facility] Serum or plasma albumin/glob ulin mass ratioOrdered By: Rosie Fuller on 07-16-2024 Albumin/Globulin [Mass ratio] 1.5 {ratio} 0.9-2.4 [facility] Serum or plasma alkaline fritz sphatase measurementOrdered By: Rosie Fuller on 07-16-2024 ALP [Catalytic activity/Vol] 101 U/L 35-104 [facility] Serum or plasma calcium tim urement (mass/volume)Ordered By: Rosie Fuller on 07-16-2024 Calcium [Mass/Vol] 8.6 mg/dL 7.6-11.0 [facility] Serum or plasma urea nitroge n measurement (mass/volume)Ordered By: Rosie Fuller on 07-16-2024 Urea nitrogen [Mass/Vol] 18 mg/dL 4-19 [facility] Sodium levelOrdered By: Kelly Fuller on 07-16-2024 Sodium [Moles/Vol] 140 mmol/L 133-145 [facility] T4 freeOrdered By: Rosie weir on 07-16-2024 Free T4 [Mass/Vol] 0.90 ng/dL 0.76-1.46 [facility] TSH DL <= 0.005 mIU/L QnOrde red By: Rosie Fuller on 07-16-2024 Thyroid Stimulating Hormone (TSH) 3.780 uIU/mL 0.300-4.20 0 [facility] TSH Qn 3.780 uIU/mL 0.300-4.20 0 [facility] Thyroid Stim Hormone (TSH)on 07-16-2024 TSH 3.780 uIU/mL Normal 0.300-4.20 0 [facility] Comment on above: Performed By: #### L 100.0100, L506.0400, L500.4050, L501.9548 #### [facility] [address], [address] Total proteinOrdered By: Konstantin wilkesa Alex on 07-16-2024 Protein [Mass/Vol] 6.8 g/dL 5.9-8.4 [facility] White blood cell (WBC) count Ordered By: Rosie Fuller on 07-16-2024 WBC (Bld) [#/Vol] 2.5 10*3/uL Low 4.4-11.0 [facility] 36on 06-28-2024 36 Spoke to patient and she is aware that her ca125 was 16.7. She would like to have her keytruda in [place] when she carbajal not need to be seen by a provider. She will see her appointments in my chart. Normal [facility] 36 ----- Message from Denis Richey MD sent at 06/28/2024 3:26 PM EDT ----- I think Courtney is down in the infusion center, can you give her a call and let her know her CA125 level looks good ----- Message ----- From: Deadeye Marksmanship User Chato Sent: 06/28/2024 3:09 PM EDT To: Denis Richey MD [facility] CA 125on 06-28-2024 CA 125 16.7 U/mL Normal 0.0-35.0 [facility] Comment on above: Result Comment: MAHENDRA Escamilla COMMENTS: Testing performed on the [employer] I using a two-step chemiluminescent microparticle immunoassay method. Results obtained by different methods should not be used interchangeably. A 10.75% increase in assay value is considered as a significant change. Results obtained by different methods should not be used interchangeably. The CA 125 result is based on a new assay and the results may not be comparable with assays run prior to 12/13/2022. Performed By: #### L [id number] ####Transition Of Care Specialist: DAVON OJEDA ([id number])[facility] ([facility])[address] [place] [address] Laboratory - Chemistry and C hemistry - challengeon 06-28-2024 Cancer Ag 125 Qn 16.7 [arb'U]/mL 0.0 - 35 .0 U/mL [facility] [place] No Panel Informationon 06-28 Interpretation and review of laboratory results Normal [facility] Testing performed on the [employer] I using a two-step chemiluminescent microparticle immunoassay method. Results obtained by different methods should not be used interchangeably. A 10.75% increase in assay value is considered as a significant change. Results obtained by different methods should not be used interchangeably. The CA 125 result is based on a new assay and the results may not be comparable with assays run prior to 12/13/2022. 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 None Family History Problem Relation Age of Onset High Blood Pressure Mother Arthritis Mother Skin cancer Mother 60 Autoimmune disease Mother Hearing loss Mother Hypertension Mother Lung cancer Father 66 Cancer Father Thyroid disease Sister Depression Sister High Blood Pressure Sister Skin cancer Sister 60 Autoimmune disease Sister Hypertension Sister Hearing loss Daughter Suicide Attempts Son Osteoporosis Maternal Grandmother Uterine cancer Paternal Grandmother 62 Cancer Paternal Grandmother Lung cancer Paternal Grandfather 56 Cancer Paternal Grandfather Lung cancer Mother's Sister 75 Cancer Mother's Sister Breast cancer Cousin 60 Comments: on dads side Breast cancer Cousin 60 Comments: on dads side Family Status - Relation Status Age at Mother Alive Father Sister Sister Daughter Son Maternal Grandmother Paternal Grandmother Paternal Grandfather Mother's Sister Cousin Alive Cousin Alive Level of Service:77161 [place] OFFICE/OUTPATIENT ESTABLISHED LOW MDM 20 MIN (24) Reason for Visit and Comments: Chemotherapy [305] Endometrial Cancer [562] Normal [facility] Progress Noteon 06-28-2024 Progress Note Visited with Cary velásquez round 11:20am in the infusion center for cycle #3 carbo/Keytruda. Her daughter, Sherron, is with her today. Cary stated that she had an office visit with Dr. Richey today, went well. She stated that today will be her last cycle of carbo, and she will continue maintenance Keytruda every 6 weeks, alternating between here and [place]. She stated that she will likely have a PET scan in August. Her daughter, Hannah, arrived and brought lunch for them from [employer]. Discussed their Easter plans and the delicious desserts that Cary plans to prepare, including her traditional Bunny Cake, cupcakes, pecan squares, and a surprise Banana Cream pie. She stated that her granddaughter, Lakeisha, will be turning 21, so the bunny cake is also in honor of her birthday. Wished them a Happy Easter. Provided support and encouragement. Notified Cary that I will continue to follow along in her care. She had no needs, questions, or concerns at this time. Encouraged her to call me or the office should that change or should she experience any new or worsening symptoms. She verbalized understanding. Normal [facility] Progress Note 1110 Pt arrived for Keytruda/Carboplatin treatment. Pt states that she is feeling well today. Reports mild fatigue, unchanged N/T, and intermittent heartburn. Pt denies any new complaints at this time. CA125 drawn via PIV and sent stat to CCL. 1405 Pt tolerated Keytruda/Carboplatin treatment well. Pt aware of POC as well as next follow up appointments. Pt safely left infusion via ambulation in a stable condition with her family 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 , was diagnosed with a stage III C1 endometrial cancer in June 2020. She was treated with robotic hysterectomy BSO sentinel lymph node sampling followed by chemotherapy with carboplatinum and Taxol and Herceptin in [place]. However the patient developed a severe reaction after the first course. This was in early September. The patient decided not to pursue any further chemotherapy after that point. CT A/P/C 10/15 was NILESH In February 2022 patient presented to the office complaining of a gregoria vaginal discharge. Exam revealed anterior vaginal wall replaced by malignancy. 03/11/22 Biopsy performed in office. Final Diagnosis VAGINA, BIOPSY- VAGINAL MUCOSAL FRAGMENTS WITH INVOLVEMENT BY HIGH GRADE SEROUS CARCINOMA. 03/16/22 PET showed positive for carcinoma Pt receiving Trastuzumab, Carboplatin, Abraxane, last dose 07/29/22 Patient was then started on Herceptin maintenance. PET scan September 2023 showed no evidence of recurrent disease. However PET scan in March 2024 showed evidence of periaortic safia recurrence. This was resected in the operating room , was positive for recurrent cancer. After discussion decided on chemotherapy with carboplatinum and Keytruda x 3 along with Keytruda maintenance.here for cycle #3, About 2 weeks ago some LLQ pain by incision this pain has now resolved but she does feel a small lump in the incision line. Denies any vaginal bleeding, has been having some heartburn issues. Has also been noticing some issues with insomnia. Denies any grade 3 or 4 toxicities and has a good performance status Past Medical History: Diagnosis Date Cancer (CMS/HCC) (HCC) 07/15/2020 Endometrial Hx antineoplastic chemo 04/04/2022 ended july 2022 Osteoarthritis Osteopenia Past Surgical History: Procedure Laterality Date FRACTURE SURGERY Left 1973 ankle HEMORRHOID SURGERY KNEE SURGERY Right 1969 and 1970 open OTHER SURGICAL HISTORY 07/16/2020 [facility] BSO LND; Dr. Denis Richey SINUS SURGERY 2007 Social History Socioeconomic History Marital status: Single Tobacco Use Smoking status: Never Smokeless tobacco: Never Vaping Use Vaping status: Never Used Substance and Sexual Activity Alcohol use: Not Currently Drug use: Never Sexual activity: Not Currently Partners: Male Social Drivers of Health Financial Resource Strain: Low Risk (01/20/2023) Overall Financial Resource Strain (CARDIA) Difficulty of Paying Living Expenses: Not hard at all Food Insecurity: No Food Insecurity (01/20/2023) Hunger Vital Sign Worried About Running Out of Food in the Last Year: Never true Ran Out of Food in the Last Year: Never true Transportation Needs: No Transportation Needs (01/20/2023) PRAPARE - Transportation Lack of Transportation (Medical): No Lack of Transportation (Non-Medical): No Current Outpatient Medications Medication Sig Dispense Refill Alpha-Lipoic Acid 600 MG capsule Take by mouth daily. B Adhhgoo-X-Bkhakxe (B-COMPLEX/VITAMIN C, W/ CA, PO) Take by mouth. ibuprofen 600 MG tablet Take 1 tablet (600 mg) by mouth every 6 hours. 60 tablet 0 multivitamin with minerals (Cerovite) 18-400 mg-mcg tablet tablet Take 1 tablet by mouth daily. ondansetron (Zofran) 8 MG tablet Take 1 tablet (8 mg) by mouth every 8 hours as needed for nausea or vomiting. 20 tablet 2 prochlorperazine (Compazine) 10 MG tablet Take 1 tablet (10 mg) by mouth every 6 hours as needed for nausea or vomiting. 30 tablet 2 saccharomyces boulardii (Florastor) 250 MG capsule Take 250 mg by mouth 2 times daily. No current facility-administered medications for this visit. Facility-Administered Medications Ordered in Other Visits Medication Dose Route Frequency Provider Last Rate Last Admin sodium chloride 0.9 % infusion 5-250 mL/hr IntraVENous Once PRN Denis Richey MD Review of Systems Gastrointestinal: Episodic heartburn pain Hematological: Negative for adenopathy. Paclitaxel and Levofloxacin There were no vitals taken for this visit. Physical Exam Vitals and nursing note reviewed. Exam conducted with a business services vice president present. Constitutional: Appearance: Normal appearance. Abdominal: General: Abdomen is flat. Palpations: Abdomen is soft. Comments: Well-healed left paramedian incision, sutures felt under the skin but no evidence of nodularity or masses the suture knot does correspond to the small lump the patient feels Neurological: Mental Status: She is alert. Psychiatric: Mood and Affect: Mood normal. Behavior: Behavior normal. Assessment: Recurrent endometrial cancer currently undergoing carboplatin Keytruda x 3 that would do Keytruda maintenance alone. Plan: Chemotherapy labs have been checked, chemotherapy orders have been calculated sinus at the infusion center today. Discussed long-term plan of (more content not included)... Normal [facility] Absolute lymphocyte countOrd ered By: Rosie Fuller on 06-27-2024 Lymphocytes Auto (Unsp spec) [#/Vol] 0.92 10*3/uL 0.83-4.51 [facility] Absolute neutrophil countOrd ered By: Rosie Fuller on 06-27-2024 Neutrophils (Bld) [#/Vol] 1.4 10*3/uL Low 2.0-7.7 [facility] Anion gap in Serum or Plasma Ordered By: Rosie Fuller on 06-27-2024 Anion gap [Moles/Vol] 12 mmol/L 5-15 [facility] Automated lymphocyte count a s percentage of total leukocytesOrdered By: Rosie Fuller on 06-27-2024 Lymphocytes/100 WBC Auto (Unsp spec) 35.5 % 19-41 [facility] BUN/creatinine ratioOrdered By: Rosie Fuller on 06-27-2024 Urea nitrogen/Creatinine [Mass ratio] 18.5 mg/mg 10-20 [facility] Basophil percentageOrdered B y: Rosie Alex on 06-27-2024 Basophils/100 WBC (Bld) 0.4 % 0-1 [facility] Bilirubin, totalOrdered By: Rosie Jorgensendez on 06-27-2024 Bilirubin [Mass/Vol] 0.30 mg/dL 0.00-1.30 [facility] CBC W/Diff, Automatedon Absolute Lymph 0.92 X10 3/uL Normal 0.83-4.51 [facility] Comment on above: Performed By: #### L 100.0100, L501.9520, [id number] #### [facility] [address] [place], [address] Absolute Neut 1.4 X10 3/uL Low 2.0-7.7 [facility] Comment on above: Performed By: #### L 100.0100, L501.9520, [id number] #### [facility] [address] [place], [address] Basophils/100 WBC (Bld) 0.4 % Normal 0-1 [facility] Comment on above: Performed By: #### L 100.0100, L501.9520, [id number] #### [facility] [address] [place], [address] Eosinophils/100 WBC (Bld) 0.4 % Normal 0-5 [facility] Comment on above: Performed By: #### L 100.0100, L501.9520, [id number] #### [facility] [address] [place], [address] Erythrocyte distribution width (RBC) [Ratio] 14.6 % Normal 11.6-14.6 [facility] Comment on above: Performed By: #### L 100.0100, L501.9520, [id number] #### [facility] [address] [place], [address] Hematocrit (Bld) [Volume fraction] 30.2 % Low 37-47 [facility] Comment on above: Performed By: #### L 100.0100, L501.9520, [id number] #### [facility] [address] [place], [address] Hemoglobin (Bld) [Mass/Vol] 10.2 g/dL Low 12.0-15.0 [facility] Comment on above: Performed By: #### L 100.0100, L501.9520, [id number] #### [facility] [address] [place], [address] IG% 0.000 Normal 0.0-0.9 [facility] Comment on above: Result Comment: IG% - Immature Granulocytes (promyelocytes, myelocytes and metamyelocytes) > 1% indicates that a LEFT SHIFT is Present. Performed By: #### L 100.0100, L501.9520, [id number] #### [facility] [address] [place], [address] Lymphocytes/100 WBC (Bld) 35.5 % Normal 19-41 [facility] Comment on above: Performed By: #### L 100.0100, L501.9520, [id number] #### [facility] [address] [place], [address] MCH (RBC) [Entitic mass] 33.6 pg High 27.0-32.0 [facility] Comment on above: Performed By: #### L 100.0100, L501.9520, [id number] #### [facility] [address] [place], [address] MCHC (RBC) [Mass/Vol] 33.8 g/dL Normal 32-36 [facility] Comment on above: Performed By: #### L 100.0100, L501.9520, [id number] #### [facility] [address] [place], [address] MCV (RBC) [Entitic vol] 99.3 fL High 81-99 [facility] Comment on above: Performed By: #### L 100.0100, L501.9520, [id number] #### [facility] [address] [place], [address] Monocytes/100 WBC (Bld) 10.8 % High 0-10 [facility] Comment on above: Performed By: #### L 100.0100, L501.9520, [id number] #### [facility] [address] [place], [address] Neutrophils/100 WBC (Bld) 52.9 % Normal 47-70 [facility] Comment on above: Performed By: #### L 100.0100, L501.9520, [id number] #### [facility] [address] [place], [address] Nucleated RBC (Bld) [#/Vol] 0 10*3/uL Normal 0-5 [facility] Comment on above: Performed By: #### L 100.0100, L501.9520, [id number] #### [facility] [address] [place], [address] Platelet mean volume (Bld) [Entitic vol] 9.8 fL Normal 6.2-12.0 [facility] Comment on above: Performed By: #### L 100.0100, L501.9520, [id number] #### [facility] [address] [place], [address] Platelets (Bld) [#/Vol] 163 10*3/uL Normal 150-450 [facility] Comment on above: Performed By: #### L 100.0100, L501.9520, [id number] #### [facility] [address] [place], [address] RBC (Bld) [#/Vol] 3.04 10*6/uL Low 4.2-5.4 [facility] Comment on above: Performed By: #### L 100.0100, L501.9520, [id number] #### [facility] [address] [place], [address] RDW SD 52.1 fl High 35.1-43.9 [facility] Comment on above: Performed By: #### L 100.0100, L501.9520, [id number] #### [facility] [address] [place], [address] WBC (Bld) [#/Vol] 2.6 10*3/uL Low 4.4-11.0 [facility] Comment on above: Performed By: #### L 100.0100, L501.9520, [id number] #### [facility] [address] [place], [address] Carbon dioxide, total [Moles /volume] in Central venous bloodOrdered By: Rosie Fuller on 06-27-2024 CO2 [Moles/Vol] 23.7 mmol/L 21.0-32.0 [facility] Chloride assayOrdered By: Erasto Fuller on 06-27-2024 Chloride [Moles/Vol] 104 mmol/L 98-108 [facility] Comprehensive Metabolic Prof ilon 06-27-2024 Albumin [Mass/Vol] 4.2 g/dL Normal 3.4-4.8 [facility] Comment on above: Performed By: #### L 100.0100, L501.9520, [id number] #### [facility] [address] [place], [address] Albumin/Globulin [Mass ratio] 1.4 {ratio} Normal 0.9-2.4 [facility] Comment on above: Performed By: #### L 100.0100, L501.9520, [id number] #### [facility] [address] [place], [address] ALK PHOS 108 U/L High 35-104 [facility] Comment on above: Performed By: #### L 100.0100, L501.9520, [id number] #### [facility] [address] [place], [address] ALT [Catalytic activity/Vol] 19 U/L Normal <=34 [facility] Comment on above: Performed By: #### L 100.0100, L501.9520, [id number] #### [facility] [address] [place], [address] AST [Catalytic activity/Vol] 25 U/L Normal <=31 [facility] Comment on above: Performed By: #### L 100.0100, L501.9520, [id number] #### [facility] [address] [place], [address] Bilirubin [Mass/Vol] 0.30 mg/dL Normal 0.00-1.30 [facility] Comment on above: Performed By: #### L 100.0100, L501.9520, [id number] #### [facility] [address] [place], [address] BUN/CRE 18.5 RATIO Normal 10-20 [facility] Comment on above: Performed By: #### L 100.0100, L501.9520, [id number] #### [facility] [address] [place], [address] Calcium [Mass/Vol] 8.7 mg/dL Normal 7.6-11.0 [facility] Comment on above: Performed By: #### L 100.0100, L501.9520, L500.4050 #### [facility] [address] [place], [address] Chloride [Moles/Vol] 104 mmol/L Normal 98-108 [facility] Comment on above: Performed By: #### L 100.0100, L501.9520, [id number] #### [facility] [address] [place], [address] CO2 [Moles/Vol] 23.7 mmol/L Normal 21.0-32.0 [facility] Comment on above: Performed By: #### L 100.0100, L501.9520, L500.4050 #### [facility] [address] [place], [address] Creatinine [Mass/Vol] 0.80 mg/dL Normal 0.70-1.20 [facility] Comment on above: Performed By: #### L 100.0100, L501.9520, [id number] #### [facility] [address] [place], [address] GAP 12 Normal 5-15 [facility] Comment on above: Performed By: #### L 100.0100, L501.9520, [id number] #### [facility] [address] [place], [address] GFR/1.73 sq M.predicted among non-blacks MDRD (S/P/Bld) [Vol rate/Area] 78 mL/min/{1.73_m2} Normal >60 [facility] Comment on above: Result Comment: mL/m in/1.73m2 CKD-EPI Creatinine Equation (2020) Performed By: #### L 100.0100, L501.9520, L500.4050 #### [facility] [address] [place], [address] Globulin (S) [Mass/Vol] 2.9 g/dL Normal 2.2-4.2 [facility] Comment on above: Performed By: #### L 100.0100, L501.9520, L500.4050 #### [facility] [address] [place], [address] Glucose [Mass/Vol] 98 mg/dL Normal 70-99 [facility] Comment on above: Performed By: #### L 100.0100, L501.9520, L500.4050 #### [facility] [address] [place], [address] Potassium [Moles/Vol] 4.3 mmol/L Normal 3.3-5.1 [facility] Comment on above: Performed By: #### L 100.0100, L501.9520, L500.4050 #### [facility] [address] [place], [address] Sodium [Moles/Vol] 140 mmol/L Normal 133-145 [facility] Comment on above: Performed By: #### L 100.0100, L501.9520, L500.4050 #### [facility] [address] [place], [address] T PROT 7.0 g/dL Normal 5.9-8.4 [facility] Comment on above: Performed By: #### L 100.0100, L501.9520, [id number] #### [facility] [address] [place], [address] Urea nitrogen [Mass/Vol] 15 mg/dL Normal 4-19 [facility] Comment on above: Performed By: #### L 100.0100, L501.9520, [id number] #### [facility] [address] [place], [address] Eosinophil percentageOrdered By: Rosie Fuller on 06-27-2024 Eosinophils/100 WBC (Bld) 0.4 % 0-5 [facility] Erythrocyte distribution wid th (RBC) [Ratio]Ordered By: Rosie Fuller on 06-27-2024 Erythrocyte distribution width (RBC) [Entitic vol] 52.1 fL High 35.1-43.9 [facility] Erythrocyte distribution wid th ratioOrdered By: Rosie Fuller on 06-27-2024 Erythrocyte distribution width (RBC) [Ratio] 14.6 % 11.6-14.6 [facility] Erythrocyte distribution wid th standard deviationOrdered By: Rosie Fuller on 06-27-2024 Erythrocyte distribution width (RBC) [Ratio] 52.1 fl High 35.1-43.9 [facility] GFR/1.73 sq M.predicted vandana g non-blacks MDRD (S/P/Bld) [Vol rate/Area]Ordered By: Rosie Fuller on 06-27-2024 Estimated GFR (MDRD) Non-Af Amer 78 >60 [facility] Comment on above: mL/min/1.73m2 CKD-EP I Creatinine Equation (2020) Glomerular filtration rate ( GFR) estimation/1.73 sq m using serum, plasma, or whole bOrdered By: Rosie Fuller on 06-27-2024 GFR/1.73 sq M.predicted among non-blacks MDRD (S/P/Bld) [Vol rate/Area] 78 mL/min/{1.73_m2} >60 [facility] Comment on above: mL/min/1.73m2 CKD-EP I Creatinine Equation (2020) Hematocrit Auto (Bld) [Volum e fraction]Ordered By: Rosie Fuller on 06-27-2024 Hematocrit (Bld) [Volume fraction] 30.2 % Low 37-47 [facility] Hemoglobin measurementOrdere d By: Rosie Fuller on 06-27-2024 Hemoglobin (Bld) [Mass/Vol] 10.2 g/dL Low 12.0-15.0 [facility] Immature granulocytes/100 WB C Auto (Bld)Ordered By: Rosie Fuller on 06-27-2024 Immature granulocytes/100 WBC (Bld) 0.000 % 0.0-0.9 [facility] Comment on above: IG% - Immature Granu locytes (promyelocytes, myelocytes and metamyelocytes) > 1% indicates that a LEFT SHIFT is Present. Laboratory - Chemistry and C hemistry - challengeOrdered By: Rosie Fuller on 06-27-2024 AST [Catalytic activity/Vol] 25 U/L <32 [facility] Lymphocytes Auto (Unsp spec) [#/Vol]Ordered By: Rosie Fuller on 06-27-2024 Lymphocytes (Bld) [#/Vol] 0.92 10*3/uL 0.83-4.51 [facility] Lymphocytes/100 WBC Auto (Un sp spec)Ordered By: Rosie Fuller on 06-27-2024 Lymphocytes/100 WBC (Bld) 35.5 % 19-41 [facility] MCV (mean corpuscular volume ) determinationOrdered By: Rosie Fuller on 06-27-2024 MCV (RBC) [Entitic vol] 99.3 fL High 81-99 [facility] Mean corpuscular hemoglobin (MCH) determinationOrdered By: Rosie Fuller on 06-27-2024 MCH (RBC) [Entitic mass] 33.6 pg High 27.0-32.0 [facility] Mean corpuscular hemoglobin concentration (MCHC) determinationOrdered By: Rosie Fuller on 06-27-2024 MCHC (RBC) [Mass/Vol] 33.8 g/dL 32-36 [facility] Mean platelet volume determi nationOrdered By: Rosie Fuller on 06-27-2024 Platelet mean volume (Bld) [Entitic vol] 9.8 fL 6.2-12.0 [facility] Monocyte percentageOrdered B y: Rosie Fuller on 06-27-2024 Monocytes/100 WBC (Bld) 10.8 % High 0-10 [facility] Neutrophil percentageOrdered By: Rosie Fuller on 06-27-2024 Neutrophils/100 WBC (Bld) 52.9 % 47-70 [facility] Nucleated red blood cell per centageOrdered By: Rosie Fuller on 06-27-2024 Nucleated RBC/100 WBC (Bld) [Ratio] 0 % 0-5 [facility] Platelet countOrdered By: Erasto Fuller on 06-27-2024 Platelets (Bld) [#/Vol] 163 10*3/uL 150-450 [facility] Potassium (Unsp spec) [Mass/ Vol]Ordered By: Rosie Fuller on 06-27-2024 Potassium [Moles/Vol] 4.3 mmol/L 3.3-5.1 [facility] Potassium measurement (mass/ volume)Ordered By: Rosie Fuller on 06-27-2024 Potassium (Unsp spec) [Mass/Vol] 4.3 mmol/L 3.3-5.1 [facility] RBC Auto (Bld) [#/Vol]Ordere d By: Rosie Fulelr on 06-27-2024 RBC (Bld) [#/Vol] 3.04 10*6/uL Low 4.2-5.4 [facility] Serum creatinine measurement (mass/volume)Ordered By: Rosie Fuller on 06-27-2024 Creatinine [Mass/Vol] 0.80 mg/dL 0.70-1.20 [facility] Serum globulin measurementOr dered By: Rosie Fuller on 06-27-2024 Globulin (S) [Mass/Vol] 2.9 g/dL 2.2-4.2 [facility] Serum glucose measurement (m ass/volume)Ordered By: Rosie Fuller on 06-27-2024 Glucose [Mass/Vol] 98 mg/dL 70-99 [facility] Serum or plasma alanine miguel otransferase (ALT) measurementOrdered By: Rosie Fuller on 06-27-2024 ALT [Catalytic activity/Vol] 19 U/L <35 [facility] Serum or plasma albumin tim urement (mass/volume)Ordered By: Rosie Fuller on 06-27-2024 Albumin [Mass/Vol] 4.2 g/dL 3.4-4.8 [facility] Serum or plasma albumin/glob ulin mass ratioOrdered By: Rosie Fuller on 06-27-2024 Albumin/Globulin [Mass ratio] 1.4 {ratio} 0.9-2.4 [facility] Serum or plasma alkaline fritz sphatase measurementOrdered By: Rosie Fuller on 06-27-2024 ALP [Catalytic activity/Vol] 108 U/L High 35-104 [facility] Serum or plasma calcium tim urement (mass/volume)Ordered By: Rosie Fuller on 06-27-2024 Calcium [Mass/Vol] 8.7 mg/dL 7.6-11.0 [facility] Serum or plasma urea nitroge n measurement (mass/volume)Ordered By: Rosie Fuller on 06-27-2024 Urea nitrogen [Mass/Vol] 15 mg/dL 4-19 [facility] Sodium levelOrdered By: Kelly Fuller on 06-27-2024 Sodium [Moles/Vol] 140 mmol/L 133-145 [facility] TSH DL <= 0.005 mIU/L QnOrde red By: Rosie Fuller on 06-27-2024 Thyroid Stimulating Hormone (TSH) 4.590 uIU/mL High 0.300-4.20 0 [facility] TSH Qn 4.590 uIU/mL High 0.300-4.20 0 [facility] Thyroid Stim Hormone (TSH)on 06-27-2024 TSH 4.590 uIU/mL High 0.300-4.20 0 [facility] Comment on above: Performed By: #### L 100.0100, L501.9520, L500.4050 #### [facility] Laboratory [facility] [address] [place], [place], [id number] Total proteinOrdered By: Konstantin Fuller on 06-27-2024 Protein [Mass/Vol] 7.0 g/dL 5.9-8.4 [facility] White blood cell (WBC) count Ordered By: Rosie Fuller on 06-27-2024 WBC (Bld) [#/Vol] 2.6 10*3/uL Low 4.4-11.0 [facility] CA 125on 06-07-2024 Cancer Ag 125 Qn 15 [arb'U]/mL 0.0 - 35.0 U/mL [employer] Interpretation and review of laboratory results Normal HemoShear Testing performed on the [employer] using a two-step chemiluminescent microparticle immunoassay method. Results obtained by different methods should not be used interchangeably. A 10.75% increase in assay value is considered as a significant change. Results obtained by different methods should not be used interchangeably. The CA 125 result is based on a new assay and the results may not be comparable with assays run prior to 12/13/2022. [facility] CA 125 15.0 U/mL Normal 0.0-35.0 [facility] Comment on above: Result Comment: MAHENDRA Escamilla COMMENTS: Testing performed on the [employer] using a two-step chemiluminescent microparticle immunoassay method. Results obtained by different methods should not be used interchangeably. A 10.75% increase in assay value is considered as a significant change. Results obtained by different methods should not be used interchangeably. The CA 125 result is based on a new assay and the results may not be comparable with assays run prior to 12/13/2022. 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 None Family History Problem Relation Age of Onset High Blood Pressure Mother Arthritis Mother Skin cancer Mother 60 Autoimmune disease Mother Hearing loss Mother Hypertension Mother Lung cancer Father 66 Thyroid disease Sister Depression Sister High Blood Pressure Sister Skin cancer Sister 60 Autoimmune disease Sister Hypertension Sister Hearing loss Daughter Suicide Attempts Son Osteoporosis Maternal Grandmother Uterine cancer Paternal Grandmother 62 Lung cancer Paternal Grandfather 56 Lung cancer Mother's Sister 75 Breast cancer Cousin 60 Comments: on dads side Breast cancer Cousin 60 Comments: on dads side Family Status - Relation Status Age at Mother Alive Father Sister Sister Daughter Son Maternal Grandmother Paternal Grandmother Paternal Grandfather Mother's Sister Cousin Alive Cousin Alive Level of Service:10072 [place] OFFICE/OUTPATIENT ESTABLISHED LOW MDM 20 MIN Reason for Visit and Comments: Follow-up [[id number]] - Chemo Normal [facility] Progress Noteon 06-07-2024 Progress Note Visited with Cary buckner 1:40pm in the infusion center for cycle #2 carbo/Keytruda. Her daughters, Sherron and Hannah, are with her today. They all just finished enjoying their [employer] lunch. Cary and I discussed the fun we had watching soccer together last Monday. Discussed kids, soccer, and the best furniture stores. Discussed that she had an office visit with Renay today, went well. She stated that her steroid dose was decreased for today and will also be run a little slower to hopefully help her tolerate it better. She stated that she did not feel well for at least a week after her last treatment, suffered with a headache. She stated that she has experienced some mouth sores and is trying ice chips and biotene mouth rinse to help prevent/manage the mouth sores. She knows to call the office, if she needs a prescription for magic mouthwash. She stated that she is happy to still have her hair. Discussed that her next treatment will be on 06/28. Provided support and encouragement. Notified Cary that I will continue to follow along in her care. She had no needs, questions, or concerns at this time. Encouraged her to call me or the office should that change or should she experience any new or worsening symptoms. She verbalized understanding. Normal [facility] Progress Note Pt arrived ambulator y for C2 D1 Keytruda/Carbo tx. CBC, CMP, TSH drawn at [facility] on 06/06/24. CA125 drawn via peripheral IV start & sent to [facility] lab. Pt reports having headaches, mouth sores, and nausea for the first week after last treatment but those sx have resolved. Will try sucking on ice chips during Carbo infusion today to see if it helps to prevent mouth sores this cycle. Denies any other new issues/concerns. See toxicity assessment. Decadron dose decreased to 8mg today by provider and pt requested for it to be run over 40 min instead of 20. 1539: Pt tolerated tx without incident. IV removed. Site benign. Pt aware of next infusion appt. Discharged home in stable condition with daughters. Normal [facility] Progress Note CC: Here today for c ycle 2 carbo/keytruda. 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 , was diagnosed with a stage III C1 endometrial cancer in June 2020. She was treated with robotic hysterectomy BSO [place]inel lymph node sampling followed by chemotherapy with carboplatinum and Taxol and Herceptin in [place]. However the patient developed a severe reaction after the first course. This was in early September. The patient decided not to pursue any further chemotherapy after that point. CT A/P/C 10/15 was NILESH In February 2022 patient presented to the office complaining of a gregoria vaginal discharge. Exam revealed anterior vaginal wall replaced by malignancy. 03/11/22 Biopsy performed in office. Final Diagnosis VAGINA, BIOPSY- VAGINAL MUCOSAL FRAGMENTS WITH INVOLVEMENT BY HIGH GRADE SEROUS CARCINOMA. 03/16/22 PET showed positive for carcinoma Pt receiving Trastuzumab, Carboplatin, Abraxane, last dose 07/29/22 Patient was then started on Herceptin maintenance. PET scan September 2023 showed no evidence of recurrent disease. Pt had left periaortic lymph node biopsy on 04/16/24, which was positive for metastatic carcinoma compatible with recurrence. Decision was made to pursue carbo/keytruda x 3 cycles, then keytruda maintenance. Underwent recent echo which shows good left ventricular function. She denies any cardiac symptoms related to the Herceptin. Denies any vaginal bleeding, abdominal pain, pelvic pain, adenopathy. Has good performance status. INTERVAL HISTORY: Pt doing well overall, did report feeling rough after cycle 1. Pt c/o severe flushing and burning sensation with decadron infusion, did not feel normal for a few days after. Fatigue was worst symptom. TSH slightly elevated on previous labs, pt to get TSH and free T4. Nausea was significant, but pt found that eating helped control it even better than the zofran did. No episodes of vomiting. She denies abdominal pain, bloating, constipation/diarrhea, issues with urination. No vaginal bleeding or pain. Past Medical History: Diagnosis Date Cancer (CMS/HCC) (HCC) 07/15/2020 Endometrial Hx antineoplastic chemo 04/04/2022 ended july 2022 Osteoarthritis Osteopenia Past Surgical History: Procedure Laterality Date FRACTURE SURGERY Left 1973 ankle HEMORRHOID SURGERY KNEE SURGERY Right 1969 and 1970 open OTHER SURGICAL HISTORY 07/16/2020 [facility] BSO LND; Dr. Denis Richey SINUS SURGERY 2006 Social History Socioeconomic History Marital status: Single Tobacco Use Smoking status: Never Smokeless tobacco: Never Vaping Use Vaping status: Never Used Substance and Sexual Activity Alcohol use: Not Currently Drug use: Never Sexual activity: Not Currently Partners: Male Social Drivers of Health Financial Resource Strain: Low Risk (01/20/2023) Overall Financial Resource Strain (CARDIA) Difficulty of Paying Living Expenses: Not hard at all Food Insecurity: No Food Insecurity (01/20/2023) Hunger Vital Sign Worried About Running Out of Food in the Last Year: Never true Ran Out of Food in the Last Year: Never true Transportation Needs: No Transportation Needs (01/20/2023) PRAPARE - Transportation Lack of Transportation (Medical): No Lack of Transportation (Non-Medical): No Current Outpatient Medications Medication Sig Dispense Refill Alpha-Lipoic Acid 600 MG capsule Take by mouth daily. B Vrdtczv-I-Tbgnoye (B-COMPLEX/VITAMIN C, W/ CA, PO) Take by mouth. ibuprofen 600 MG tablet Take 1 tablet (600 mg) by mouth every 6 hours. 60 tablet 0 multivitamin with minerals (Cerovite) 18-400 mg-mcg tablet tablet Take 1 tablet by mouth daily. ondansetron (Zofran) 8 MG tablet Take 1 tablet (8 mg) by mouth every 8 hours as needed for nausea or vomiting. 20 tablet 2 prochlorperazine (Compazine) 10 MG tablet Take 1 tablet (10 mg) by mouth every 6 hours as needed for nausea or vomiting. 30 tablet 2 saccharomyces boulardii (Florastor) 250 MG capsule Take 250 mg by mouth 2 times daily. No current facility-administered medications for this visit. Facility-Administered Medications Ordered in Other Visits Medication Dose Route Frequency Provider Last Rate Last Admin sodium chloride 0.9 % infusion 5-250 mL/hr IntraVENous Once PRN Denis Richey MD Review of Systems Constitutional: Positive for appetite change (increased) and fatigue. Negative for fever. HENT: Negative. Eyes: Negative. Respiratory: Negative for cough and shortness of breath. Cardiovascular: Negative for chest pain and leg swelling. Gastrointestinal: Positive for nausea. Negative for abdominal distention, abdominal pain, constipation, diarrhea and vomiting. Genitourinary: Negative for dysuria, pelvic pain and vaginal bleeding. Musculoskeletal: Negative for arthralgias and myalgias. Skin: Negative. N (more content not included)... Normal [facility] Absolute lymphocyte countOrd ered By: Denis Richey on 06-06-2024 Lymphocytes Auto (Unsp spec) [#/Vol] 0.95 10*3/uL 0.83-4.51 [facility] Absolute neutrophil countOrd ered By: Denis Richey on 06-06-2024 Neutrophils (Bld) [#/Vol] 1.6 10*3/uL Low 2.0-7.7 [facility] Anion gap in Serum or Plasma Ordered By: Denis Richey on 06-06-2024 Anion gap [Moles/Vol] 11 mmol/L 5-15 [facility] Automated lymphocyte count a s percentage of total leukocytesOrdered By: Denis Richey on 06-06-2024 Lymphocytes/100 WBC Auto (Unsp spec) 33.3 % 19- [facility] BUN/creatinine ratioOrdered By: Denis Richey on 06-06-2024 Urea nitrogen/Creatinine [Mass ratio] 20.3 mg/mg High 10- [facility] Basophil percentageOrdered B y: Denis Richey on 06-06-2024 Basophils/100 WBC (Bld) 0.4 % 0-1 [facility] Bilirubin, totalOrdered By: Denis Richey on 06-06-2024 Bilirubin [Mass/Vol] 0.32 mg/dL 0.00-1.30 [facility] CBC W/Diff, Automatedon 05-25 Absolute Lymph 0.95 X10 3/uL Normal 0.83-4.51 [facility] Comment on above: Performed By: #### L 501.9520, L500.4050, L100.0100 ####[facility] [address] [place], [address] Absolute Neut 1.6 X10 3/uL Low 2.0-7.7 [facility] Comment on above: Performed By: #### L 501.9520, L500.4050, L100.0100 ####[facility] [address] [place], [address] Basophils/100 WBC (Bld) 0.4 % Normal 0-1 [facility] Comment on above: Performed By: #### L 501.9520, L500.4050, L100.0100 ####[facility] [address] [place], [address] Eosinophils/100 WBC (Bld) 1.4 % Normal 0-5 [facility] Comment on above: Performed By: #### L 501.9520, L500.4050, L100.0100 ####[facility] [address] [place], [address] Erythrocyte distribution width (RBC) [Ratio] 13.1 % Normal 11.6-14.6 [facility] Comment on above: Performed By: #### L 501.9520, L500.4050, L100.0100 ####[facility] [address] [place], [address] Hematocrit (Bld) [Volume fraction] 31.1 % Low 37-47 [facility] Comment on above: Performed By: #### L 501.9520, L500.4050, L100.0100 ####[facility] [address] [place], [address] Hemoglobin (Bld) [Mass/Vol] 10.5 g/dL Low 12.0-15.0 [facility] Comment on above: Performed By: #### L 501.9520, L500.4050, L100.0100 ####[facility] [address] [place], [address] IG% 0.400 Normal 0.0-0.9 [facility] Comment on above: Result Comment: IG% - Immature Granulocytes (promyelocytes, myelocytes and metamyelocytes) > 1% indicates that a LEFT SHIFT is Present. Performed By: #### L 501.9520, L500.4050, L100.0100 ####[facility] [address] [place], [address] Lymphocytes/100 WBC (Bld) 33.3 % Normal 19-41 [facility] Comment on above: Performed By: #### L 501.9520, L500.4050, L100.0100 ####[facility] [address] [place], [address] MCH (RBC) [Entitic mass] 33.0 pg High 27.0-32.0 [facility] Comment on above: Performed By: #### L 501.9520, L500.4050, L100.0100 ####[facility] [address] [place], [address] MCHC (RBC) [Mass/Vol] 33.8 g/dL Normal 32-36 [facility] Comment on above: Performed By: #### L 501.9520, L500.4050, L100.0100 ####[facility] [address] [place], [address] MCV (RBC) [Entitic vol] 97.8 fL Normal 81-99 [facility] Comment on above: Performed By: #### L 501.9520, L500.4050, L100.0100 ####[facility] [address] [place], [address] Monocytes/100 WBC (Bld) 10.2 % High 0-10 [facility] Comment on above: Performed By: #### L 501.9520, L500.4050, L100.0100 ####[facility] [address] [place], [address] Neutrophils/100 WBC (Bld) 54.3 % Normal 47-70 [facility] Comment on above: Performed By: #### L 501.9520, L500.4050, L100.0100 ####[facility] [address] [place], [address] Nucleated RBC (Bld) [#/Vol] 0 10*3/uL Normal 0-5 [facility] Comment on above: Performed By: #### L 501.9520, L500.4050, L100.0100 ####[facility] [address] [place], [address] Platelet mean volume (Bld) [Entitic vol] 10.0 fL Normal 6.2-12.0 [facility] Comment on above: Performed By: #### L 501.9520, L500.4050, L100.0100 ####[facility] [address] [place], [address] Platelets (Bld) [#/Vol] 172 10*3/uL Normal 150-450 [facility] Comment on above: Performed By: #### L 501.9520, L500.4050, L100.0100 ####[facility] [address] [place], [address] RBC (Bld) [#/Vol] 3.18 10*6/uL Low 4.2-5.4 [facility] Comment on above: Performed By: #### L 501.9520, L500.4050, L100.0100 ####[facility] [address] [place], [address] RDW SD 46.0 fl High 35.1-43.9 [facility] Comment on above: Performed By: #### L 501.9520, L500.4050, L100.0100 ####[facility] [address] [place], [address] WBC (Bld) [#/Vol] 2.9 10*3/uL Low 4.4-11.0 [facility] Comment on above: Performed By: #### L 501.9520, L500.4050, L100.0100 ####[facility] [address] [place], [address] Carbon dioxide, total [Moles /volume] in Central venous bloodOrdered By: Denis Richey on 06-06-2024 CO2 [Moles/Vol] 24.6 mmol/L 21.0-32.0 [facility] Chloride assayOrdered By: St moreno Richey on 06-06-2024 Chloride [Moles/Vol] 102 mmol/L 98-108 [facility] Comprehensive Metabolic Prof ilon 06-06-2024 Albumin [Mass/Vol] 4.2 g/dL Normal 3.4-4.8 [facility] Comment on above: Performed By: #### L 501.9520, L500.4050, L100.0100 ####[facility] [address] [place], [address] Albumin/Globulin [Mass ratio] 1.5 {ratio} Normal 0.9-2.4 [facility] Comment on above: Performed By: #### L 501.9520, L500.4050, L100.0100 ####[facility] [address] [place], [address] ALK PHOS 104 U/L Normal 35-104 [facility] Comment on above: Performed By: #### L 501.9520, L500.4050, L100.0100 ####[facility] [address] [place], [address] ALT [Catalytic activity/Vol] 19 U/L Normal <=34 [facility] Comment on above: Performed By: #### L 501.9520, L500.4050, L100.0100 ####[facility] [address] [place], [address] AST [Catalytic activity/Vol] 24 U/L Normal <=31 [facility] Comment on above: Performed By: #### L 501.9520, L500.4050, L100.0100 ####[facility] [address] [place], [address] Bilirubin [Mass/Vol] 0.32 mg/dL Normal 0.00-1.30 [facility] Comment on above: Performed By: #### L 501.9520, L500.4050, L100.0100 ####[facility] [address] [place], [address] BUN/CRE 20.3 RATIO High 10-20 [facility] Comment on above: Performed By: #### L 501.9520, L500.4050, L100.0100 ####[facility] [address] [place], [address] Calcium [Mass/Vol] 8.6 mg/dL Normal 7.6-11.0 [facility] Comment on above: Performed By: #### L 501.9520, L500.4050, L100.0100 ####[facility] [address] [place], [address] Chloride [Moles/Vol] 102 mmol/L Normal 98-108 [facility] Comment on above: Performed By: #### L 501.9520, L500.4050, L100.0100 ####[facility] [address] [place], [address] CO2 [Moles/Vol] 24.6 mmol/L Normal 21.0-32.0 [facility] Comment on above: Performed By: #### L 501.9520, L500.4050, L100.0100 ####[facility] [address] [place], [address] Creatinine [Mass/Vol] 0.89 mg/dL Normal 0.70-1.20 [facility] Comment on above: Performed By: #### L 501.9520, L500.4050, L100.0100 ####[facility] [address] [place], [address] GAP 11 Normal 5-15 [facility] Comment on above: Performed By: #### L 501.9520, L500.4050, L100.0100 ####[facility] [address] [place], [address] GFR/1.73 sq M.predicted among non-blacks MDRD (S/P/Bld) [Vol rate/Area] 70 mL/min/{1.73_m2} Normal >60 [facility] Comment on above: Result Comment: mL/m in/1.73m2 CKD-EPI Creatinine Equation (2020) Performed By: #### L 501.9520, L500.4050, L100.0100 ####[facility] [address] [place], [address] Globulin (S) [Mass/Vol] 2.8 g/dL Normal 2.2-4.2 [facility] Comment on above: Performed By: #### L 501.9520, L500.4050, L100.0100 ####[facility] [address] [place], [address] Glucose [Mass/Vol] 94 mg/dL Normal 70-99 [facility] Comment on above: Performed By: #### L 501.9520, L500.4050, L100.0100 ####[facility] [address] [place], [address] Potassium [Moles/Vol] 4.1 mmol/L Normal 3.3-5.1 [facility] Comment on above: Performed By: #### L 501.9520, L500.4050, L100.0100 ####[facility] [address] [place], [address] Sodium [Moles/Vol] 138 mmol/L Normal 133-145 [facility] Comment on above: Performed By: #### L 501.9520, L500.4050, L100.0100 ####[facility] [address] [place], [address] T PROT 6.9 g/dL Normal 5.9-8.4 [facility] Comment on above: Performed By: #### L 501.9520, L500.4050, L100.0100 ####[facility] [address] [place], [address] Urea nitrogen [Mass/Vol] 18 mg/dL Normal 4-19 [facility] Comment on above: Performed By: #### L 501.9520, L500.4050, L100.0100 ####[facility] [address] [place], [address] Eosinophil percentageOrdered By: Denis Richey on 06-06-2024 Eosinophils/100 WBC (Bld) 1.4 % 0-5 [facility] Erythrocyte distribution wid th ratioOrdered By: Denis Richey on 06-06-2024 Erythrocyte distribution width (RBC) [Ratio] 13.1 % 11.6-14.6 [facility] Erythrocyte distribution wid th standard deviationOrdered By: Denis Richey on 06-06-2024 Erythrocyte distribution width (RBC) [Entitic vol] 46.0 fL High 35.1-43.9 [facility] Erythrocyte distribution width (RBC) [Ratio] 46.0 fl High 35.1-43.9 [facility] GFR/1.73 sq M.predicted vandana g non-blacks MDRD (S/P/Bld) [Vol rate/Area]Ordered By: Denis Richey on 06-06-2024 Estimated GFR (MDRD) Non-Af Amer 70 >60 [facility] Comment on above: mL/min/1.73m2 CKD-EP I Creatinine Equation (2020) Glomerular filtration rate ( GFR) estimation/1.73 sq m using serum, plasma, or whole bOrdered By: Denis Richey on 06-06-2024 GFR/1.73 sq M.predicted among non-blacks MDRD (S/P/Bld) [Vol rate/Area] 70 mL/min/{1.73_m2} >60 [facility] Comment on above: mL/min/1.73m2 CKD-EP I Creatinine Equation (2020) Hematocrit Auto (Bld) [Volum e fraction]Ordered By: Denis Richey on 06-06-2024 Hematocrit (Bld) [Volume fraction] 31.1 % Low 37-47 [facility] Hemoglobin measurementOrdere d By: Denis Richey on 06-06-2024 Hemoglobin (Bld) [Mass/Vol] 10.5 g/dL Low 12.0-15.0 [facility] Immature granulocytes/100 WB C Auto (Bld)Ordered By: Denis Richey on 06-06-2024 Immature granulocytes/100 WBC (Bld) 0.400 % 0.0-0.9 [facility] Comment on above: IG% - Immature Granu locytes (promyelocytes, myelocytes and metamyelocytes) > 1% indicates that a LEFT SHIFT is Present. Laboratory - Chemistry and C hemistry - challengeOrdered By: Denis Richey on 06-06-2024 AST [Catalytic activity/Vol] 24 U/L <32 [facility] Lymphocytes Auto (Unsp spec) [#/Vol]Ordered By: Denis Richey on 06-06-2024 Lymphocytes (Bld) [#/Vol] 0.95 10*3/uL 0.83-4.51 [facility] Lymphocytes/100 WBC Auto (Un sp spec)Ordered By: Denis Richey on 06-06-2024 Lymphocytes/100 WBC (Bld) 33.3 % 19-41 [facility] MCV (mean corpuscular volume ) determinationOrdered By: Denis Richey on 06-06-2024 MCV (RBC) [Entitic vol] 97.8 fL 81-99 [facility] Mean corpuscular hemoglobin (MCH) determinationOrdered By: Denis Richey on 06-06-2024 MCH (RBC) [Entitic mass] 33.0 pg High 27.0-32.0 [facility] Mean corpuscular hemoglobin concentration (MCHC) determinationOrdered By: Denis Richey on 06-06-2024 MCHC (RBC) [Mass/Vol] 33.8 g/dL 32-36 [facility] Mean platelet volume determi nationOrdered By: Denis Richey on 06-06-2024 Platelet mean volume (Bld) [Entitic vol] 10.0 fL 6.2-12.0 [facility] Monocyte percentageOrdered B y: Denis Richey on 06-06-2024 Monocytes/100 WBC (Bld) 10.2 % High 0-10 [facility] Neutrophil percentageOrdered By: Denis Richey on 06-06-2024 Neutrophils/100 WBC (Bld) 54.3 % 47-70 [facility] Nucleated red blood cell per centageOrdered By: Denis Richey on 06-06-2024 Nucleated RBC/100 WBC (Bld) [Ratio] 0 % 0-5 [facility] Platelet countOrdered By: St moreno Richey on 06-06-2024 Platelets (Bld) [#/Vol] 172 10*3/uL 150-450 [facility] Potassium (Unsp spec) [Mass/ Vol]Ordered By: Denis Richey on 06-06-2024 Potassium [Moles/Vol] 4.1 mmol/L 3.3-5.1 [facility] Potassium measurement (mass/ volume)Ordered By: Denis Richey on 06-06-2024 Potassium (Unsp spec) [Mass/Vol] 4.1 mmol/L 3.3-5.1 [facility] RBC Auto (Bld) [#/Vol]Ordere d By: Denis Richey on 06-06-2024 RBC (Bld) [#/Vol] 3.18 10*6/uL Low 4.2-5.4 [facility] Serum creatinine measurement (mass/volume)Ordered By: Denis Richey on 06-06-2024 Creatinine [Mass/Vol] 0.89 mg/dL 0.70-1.20 [facility] Serum globulin measurementOr dered By: Denis Richey on 06-06-2024 Globulin (S) [Mass/Vol] 2.8 g/dL 2.2-4.2 [facility] Serum glucose measurement (m ass/volume)Ordered By: Denis Richey on 06-06-2024 Glucose [Mass/Vol] 94 mg/dL 70-99 [facility] Serum or plasma alanine miguel otransferase (ALT) measurementOrdered By: Denis Richey on 06-06-2024 ALT [Catalytic activity/Vol] 19 U/L <35 [facility] Serum or plasma albumin tim urement (mass/volume)Ordered By: Denis Richey on 06-06-2024 Albumin [Mass/Vol] 4.2 g/dL 3.4-4.8 [facility] Serum or plasma albumin/glob ulin mass ratioOrdered By: Denis Richey on 06-06-2024 Albumin/Globulin [Mass ratio] 1.5 {ratio} 0.9-2.4 [facility] Serum or plasma alkaline fritz sphatase measurementOrdered By: Denis Richey on 06-06-2024 ALP [Catalytic activity/Vol] 104 U/L 35-104 [facility] Serum or plasma calcium tim urement (mass/volume)Ordered By: Denis Richey on 06-06-2024 Calcium [Mass/Vol] 8.6 mg/dL 7.6-11.0 [facility] Serum or plasma urea nitroge n measurement (mass/volume)Ordered By: Denis Richey on 06-06-2024 Urea nitrogen [Mass/Vol] 18 mg/dL 4-19 [facility] Sodium levelOrdered By: Cosme Richey on 06-06-2024 Sodium [Moles/Vol] 138 mmol/L 133-145 [facility] TSH DL <= 0.005 mIU/L QnOrde red By: Denis Richey on 06-06-2024 Thyroid Stimulating Hormone (TSH) 3.440 uIU/mL 0.300-4.20 0 [facility] TSH Qn 3.440 uIU/mL 0.300-4.20 0 [facility] Thyroid Stim Hormone (TSH)on 06-06-2024 TSH 3.440 uIU/mL Normal 0.300-4.20 0 [facility] Comment on above: Performed By: #### L 501.9520, L500.4050, L100.0100 ####[facility] [address] [place], [address] Total proteinOrdered By: Shady Richey on 06-06-2024 Protein [Mass/Vol] 6.9 g/dL 5.9-8.4 [facility] White blood cell (WBC) count Ordered By: Denis Richey on 06-06-2024 WBC (Bld) [#/Vol] 2.9 10*3/uL Low 4.4-11.0 [facility] 36on 05-23-2024 36 We have been unable to reach your patient to schedule their testing. Test Name: Transthoracic echocardiogram (TTE) complete with contrast, bubble, strain, and 3D PRN 1st attempt//sent mychart message 04/15/24 sms 2nd attempt -- LVM with CS details 05/23/24 CLP Normal [facility] T4 Free Directon 05-22-2024 T4 FREE DIRECT 1.00 ng/dL Normal 0.76-1.46 [facility] Comment on above: Performed By: #### L 501.9520, L506.0400 ####[facility] [address] [place], [place], [address] T4 freeOrdered By: Renay her on 05-22-2024 Free T4 [Mass/Vol] 1.00 ng/dL 0.76-1.46 [facility] TSH DL <= 0.005 mIU/L QnOrde red By: Renay Lucas on 05-22-2024 Thyroid Stimulating Hormone (TSH) 3.780 uIU/mL 0.300-4.20 0 [facility] TSH Qn 3.780 uIU/mL 0.300-4.20 0 [facility] Thyroid Stim Hormone (TSH)on 05-22-2024 TSH 3.780 uIU/mL Normal 0.300-4.20 0 [facility] Comment on above: Performed By: #### L 501.9520, L506.0400 ####[facility] [address] [place], [address] 36on 05-21-2024 36 Called pt with eleva randall TSH, explained that we need another lab to determine whether her thyroid is working properly. She is feeling rough from chemo still, advised that it is ok to go get the blood work later this week or even early next week when she is feeling up to it. TSH and free T4 ordered, faxed to pt's lab. Normal [facility] Progress Noteon 05-17-2024 Progress Note Visited with Cary buckner 2:00pm in the infusion center for cycle #1 carbo/Keytruda. Her daughters, Sherron and Hannah, are with her today, and they just got back from getting lunch at [employer]. Cary and I reviewed that I saw her last on 03/29 during her trazimera infusion, then she had a PET scan on 04/02, underwent surgery with Dr. Richey on 04/16, and she received the message I sent to her in [employer] from 05/03. She stated that she and Dr. Richey discussed a plan to complete 3 cycles of carbo/Keytruda and then continue maintenance Keytruda every 6 weeks. Cary stated that they will be planning the food & dessert menus for Hannah's 's upcoming birthday and also for Sumeet. Provided support and encouragement. Notified Cary that I will continue to follow along in her care. She had no needs, questions, or concerns at this time. Encouraged her to call me or the office should that change or should she experience any new or worsening symptoms. She verbalized understanding. Normal [facility] Progress Note Patient arrived ambulatory for C1D1 Keytruda/Carboplatin infusion. Patient denies any symptoms on assessment. See toxicity assessment. Peripheral IV placed in R AC. CBC/CMP/Ca-125/ TSH collected on 05-15-24. POC reviewed and patient has no further questions at this time. Patient tolerated infusion with no noted complications. Peripheral IV removed intact and site benign. Patient verbalized understanding of discharge plan and follow-up care. Patient discharged home ambulatory. Normal [facility] 36on 05-16-2024 36 LM for patient with her CA-125 results of 13.3 Normal [facility] 36 ----- Message from Denis Richey MD sent at 05/16/2024 8:38 AM EST ----- Please call with normal CA125 ----- Message ----- From: Linda Deluna Sent: 05/16/2024 8:02 AM EST To: Denis Richey MD [facility] Cancer Antigen 125on 025 CA 125 13.3 U/mL Normal 0.0-38.1 [facility] Comment on above: Result Comment: [employer]ix Electrochemiluminescence Immunoassay (ECLIA) Values obtained with different assay methods or kits cannot be used interchangeably. Results cannot be interpreted as absolute evidence of the presence or absence of malignant disease. Performed at: [facility] [id number] Fire And Safety Helper: Bucky Boothe PhD, Phone: [phone] Performed By: #### L 3100.5000, L100.0100, L501.3020, L500.4050 ####[facility] [address] [place], [address] Absolute lymphocyte countOrd ered By: Rosie Fuller on 05-15-2024 Lymphocytes Auto (Unsp spec) [#/Vol] 1.20 10*3/uL 0.83-4.51 [facility] Absolute neutrophil countOrd ered By: Rosie Fuller on 05-15-2024 Neutrophils (Bld) [#/Vol] 2.5 10*3/uL 2.0-7.7 [facility] Albumin to globulin ratioOrd ered By: Rosie Fuller on 05-15-2024 Albumin/Globulin [Mass ratio] 1.1 {ratio} 0.9-2.4 [facility] Automated lymphocyte count a s percentage of total leukocytesOrdered By: Rosie Fuller on 05-15-2024 Lymphocytes/100 WBC Auto (Unsp spec) 28.8 % 19-41 [facility] Basophil percentageOrdered B y: Rosie Fuller on 05-15-2024 Basophils/100 WBC (Bld) 0.7 % 0-1 [facility] Bilirubin, totalOrdered By: Rosie Fuller on 05-15-2024 Bilirubin [Mass/Vol] 0.40 mg/dL 0.20-1.00 [facility] Comment on above: For patients on eltr ombopag therapy, use of Dimension [place] TBIL is not recommended. Blood urea nitrogen (BUN)/cr eatinine ratioOrdered By: Rosie Fuller on 05-15-2024 Urea nitrogen/Creatinine [Mass ratio] 18.9 mg/mg 10-20 [facility] CBC W/Diff, Automatedon 04-27 Absolute Lymph 1.20 X10 3/uL Normal 0.83-4.51 [facility] Comment on above: Performed By: #### L 3100.5000, L100.0100, L501.9520, L500.4050 ####[facility] [address] [place], [address] Absolute Neut 2.5 X10 3/uL Normal 2.0-7.7 [facility] Comment on above: Performed By: #### L 3100.5000, L100.0100, L501.9520, L500.4050 ####[facility] [address] [place], [address] Basophils/100 WBC (Bld) 0.7 % Normal 0-1 [facility] Comment on above: Performed By: #### L 3100.5000, L100.0100, L501.9520, L500.4050 ####[facility] [address] [place], [address] Eosinophils/100 WBC (Bld) 2.2 % Normal 0-5 [facility] Comment on above: Performed By: #### L 3100.5000, L100.0100, L501.9520, L500.4050 ####[facility] [address] [place], [address] Erythrocyte distribution width (RBC) [Ratio] 12.7 % Normal 11.6-14.6 [facility] Comment on above: Performed By: #### L 3100.5000, L100.0100, L501.9520, L500.4050 ####[facility] [address] [place], [address] Hematocrit (Bld) [Volume fraction] 35.4 % Low 37-47 [facility] Comment on above: Performed By: #### L 3100.5000, L100.0100, L501.9520, L500.4050 ####[facility] [address] [place], [address] Hemoglobin (Bld) [Mass/Vol] 11.7 g/dL Low 12.0-15.0 [facility] Comment on above: Performed By: #### L 3100.5000, L100.0100, L501.9520, L500.4050 ####[facility] [address] [place], [address] IG% 0.500 Normal 0.0-0.9 [facility] Comment on above: Result Comment: IG% - Immature Granulocytes (promyelocytes, myelocytes and metamyelocytes) > 1% indicates that a LEFT SHIFT is Present. Performed By: #### L 3100.5000, L100.0100, L501.9520, L500.4050 ####[facility] [address] [place], [address] Lymphocytes/100 WBC (Bld) 28.8 % Normal 19-41 [facility] Comment on above: Performed By: #### L 3100.5000, L100.0100, L501.9520, L500.4050 ####[facility] [address] [place], [address] MCH (RBC) [Entitic mass] 32.6 pg High 27.0-32.0 [facility] Comment on above: Performed By: #### L 3100.5000, L100.0100, L501.9520, L500.4050 ####[facility] [address] [place], [address] MCHC (RBC) [Mass/Vol] 33.1 g/dL Normal 32-36 [facility] Comment on above: Performed By: #### L 3100.5000, L100.0100, L501.9520, L500.4050 ####[facility] [address] [place], [address] MCV (RBC) [Entitic vol] 98.6 fL Normal 81-99 [facility] Comment on above: Performed By: #### L 3100.5000, L100.0100, L501.9520, L500.4050 ####[facility] [address] [place], [address] Monocytes/100 WBC (Bld) 8.4 % Normal 0-10 [facility] Comment on above: Performed By: #### L 3100.5000, L100.0100, L501.9520, L500.4050 ####[facility] [address] [place], [address] Neutrophils/100 WBC (Bld) 59.4 % Normal 47-70 [facility] Comment on above: Performed By: #### L 3100.5000, L100.0100, L501.9520, L500.4050 ####[facility] [address] [place], [address] Nucleated RBC (Bld) [#/Vol] 0 10*3/uL Normal 0-5 [facility] Comment on above: Performed By: #### L 3100.5000, L100.0100, L501.9520, L500.4050 ####[facility] [address] [place], [address] Platelet mean volume (Bld) [Entitic vol] 10.2 fL Normal 6.2-12.0 [facility] Comment on above: Performed By: #### L 3100.5000, L100.0100, L501.9520, L500.4050 ####[facility] [address] [place], [address] Platelets (Bld) [#/Vol] 226 10*3/uL Normal 150-450 [facility] Comment on above: Performed By: #### L 3100.5000, L100.0100, L501.9520, L500.4050 ####[facility] [address] [place], [address] RBC (Bld) [#/Vol] 3.59 10*6/uL Low 4.2-5.4 [facility] Comment on above: Performed By: #### L 3100.5000, L100.0100, L501.9520, L500.4050 ####[facility] [address] [place], [address] RDW SD 45.5 fl High 35.1-43.9 [facility] Comment on above: Performed By: #### L 3100.5000, L100.0100, L501.9520, L500.4050 ####[facility] [address] [place], [address] WBC (Bld) [#/Vol] 4.2 10*3/uL Low 4.4-11.0 [facility] Comment on above: Performed By: #### L 3100.5000, L100.0100, L501.9520, L500.4050 ####[facility] [address] [place], [address] Cancer antigen 125 (CA-125) measurementOrdered By: Rosie Fuller on 05-15-2024 CA 125 Antigen 13.3 U/mL 0.0-38.1 [facility] Comment on above: [facility] El ectrochemiluminescence Immunoassay(ECLIA)Values obtained with different assay methods or kits cannotbe used interchangeably. Results cannot be interpreted asabsolute evidence of the presence or absence of malignantdisease.Performed at: [employer] [id number] Director: Bucky Boothe PhD, Phone: [phone] Cancer antigen 125 (CA-125) measurement 13.3 U/mL 0.0-38.1 [facility] Comment on above: [employer] El ectrochemiluminescence Immunoassay(ECLIA)Values obtained with different assay methods or kits cannotbe used interchangeably. Results cannot be interpreted asabsolute evidence of the presence or absence of malignantdisease.Performed at: [facility] [address] [place], [place] [id number] Director: Bucky Boothe PhD, Phone: [phone] Carbon dioxide measurementOr dered By: Rosie Fuller on 05-15-2024 CO2 [Moles/Vol] 27.0 mmol/L 21.0-32.0 [facility] Chloride measurementOrdered By: Rosie Fuller on 05-15-2024 Chloride [Moles/Vol] 105 mmol/L 98-107 [facility] Comprehensive Metabolic Prof ilon 05-15-2024 Albumin [Mass/Vol] 3.9 g/dL Normal 3.2-5.0 [facility] Comment on above: Performed By: #### L 3100.5000, L100.0100, L501.9520, L500.4050 ####[facility] [address] [place], [address] Albumin/Globulin [Mass ratio] 1.1 {ratio} Normal 0.9-2.4 [facility] Comment on above: Performed By: #### L 3100.5000, L100.0100, L501.9520, L500.4050 ####[facility] [address] [place], [address] ALK P 104 U/L Normal 45-117 [facility] Comment on above: Performed By: #### L 3100.5000, L100.0100, L501.9520, L500.4050 ####[facility] [address] [place], [address] ALT [Catalytic activity/Vol] 22 U/L Normal 13-56 [facility] Comment on above: Performed By: #### L 3100.5000, L100.0100, L501.9520, L500.4050 ####[facility] [address] [place], [address] AST [Catalytic activity/Vol] 22 U/L Normal 15-37 [facility] Comment on above: Performed By: #### L 3100.5000, L100.0100, L501.9520, L500.4050 ####[facility] [address] [place], [address] Bilirubin [Mass/Vol] 0.40 mg/dL Normal 0.20-1.00 [facility] Comment on above: Result Comment: For patients on eltrombopag therapy, use of Dimension [place] TBIL is not recommended. Performed By: #### L 3100.5000, L100.0100, L501.9520, L500.4050 ####[facility] [address] [place], [address] BUN/CRE 18.9 RATIO Normal 10-20 [facility] Comment on above: Performed By: #### L 3100.5000, L100.0100, L501.9520, L500.4050 ####[facility] [address] [place], [address] CA,Total 8.8 mg/dL Normal 8.5-10.1 [facility] Comment on above: Performed By: #### L 3100.5000, L100.0100, L501.9520, L500.4050 ####[facility] [address] [place], [address] Chloride [Moles/Vol] 105 mmol/L Normal 98-107 [facility] Comment on above: Performed By: #### L 3100.5000, L100.0100, L501.9520, L500.4050 ####[facility] [address] [place], [address] CO2 [Moles/Vol] 27.0 mmol/L Normal 21.0-32.0 [facility] Comment on above: Performed By: #### L 3100.5000, L100.0100, L501.9520, L500.4050 ####[facility] [address] [place], [address] Creatinine [Mass/Vol] 0.85 mg/dL Normal 0.55-1.02 [facility] Comment on above: Result Comment: The validity of the calculated GFR GFRAA in patients over 70 years has not been determined. Clinical correlation is essential. Performed By: #### L 3100.5000, L100.0100, L501.9520, L500.4050 ####[facility] [address] [place], [address] EST GFR - AA 85 mL/min Normal >60 [facility] Comment on above: Result Comment: Afri can [place] GFR Calc Performed By: #### L 3100.5000, L100.0100, L501.9520, L500.4050 ####[facility] [address] [place], [address] GAP 7 Normal 5-15 [facility] Comment on above: Performed By: #### L 3100.5000, L100.0100, L501.9520, L500.4050 ####[facility] [address] [place], [address] GFR/1.73 sq M.predicted among non-blacks MDRD (S/P/Bld) [Vol rate/Area] 70 mL/min/{1.73_m2} Normal >60 [facility] Comment on above: Result Comment: Non- GFR Calc Performed By: #### L 3100.5000, L100.0100, L501.9520, L500.4050 ####[facility] [address] [place], [address] Globulin (S) [Mass/Vol] 3.6 g/dL Normal 2.2-4.2 [facility] Comment on above: Performed By: #### L 3100.5000, L100.0100, L501.9520, L500.4050 ####[facility] [address] [place], [address] Glucose [Mass/Vol] 101 mg/dL Normal 74-106 [facility] Comment on above: Result Comment: Fast ing Glucose result from 100 to 125 mg/dL suggests IMPAIRED HOMEOSTASIS per A.D.A. criteria. Performed By: #### L 3100.5000, L100.0100, L501.9520, L500.4050 ####[facility] [address] [place], [address] Potassium [Moles/Vol] 3.9 mmol/L Normal 3.5-5.1 [facility] Comment on above: Performed By: #### L 3100.5000, L100.0100, L501.9520, L500.4050 ####[facility] [address] [place], [address] Sodium [Moles/Vol] 139 mmol/L Normal 136-145 [facility] Comment on above: Performed By: #### L 3100.5000, L100.0100, L501.9520, L500.4050 ####[facility] [address] [place], [address] T PROT 7.5 g/dL Normal 6.4-8.2 [facility] Comment on above: Performed By: #### L 3100.5000, L100.0100, L501.9520, L500.4050 ####[facility] [address] [place], [address] Urea nitrogen [Mass/Vol] 16 mg/dL Normal 7-18 [facility] Comment on above: Performed By: #### L 3100.5000, L100.0100, L501.9520, L500.4050 ####[facility] [address] [place], [address] Eosinophil percentageOrdered By: Rosie Fuller on 05-15-2024 Eosinophils/100 WBC (Bld) 2.2 % 0-5 [facility] Erythrocyte distribution wid th ratioOrdered By: Rosie Fuller on 05-15-2024 Erythrocyte distribution width (RBC) [Ratio] 12.7 % 11.6-14.6 [facility] Erythrocyte distribution wid th standard deviationOrdered By: Rosie Fuller on 05-15-2024 Erythrocyte distribution width (RBC) [Entitic vol] 45.5 fL High 35.1-43.9 [facility] Erythrocyte distribution width (RBC) [Ratio] 45.5 fl High 35.1-43.9 [facility] Estimated glomerular filtrat ion rate (GFR) AmericanOrdered By: Rosie Fuller on 05-15-2024 Estimated GFR (MDRD) Amer 85 mL/min >60 [facility] Comment on above: GFR Calc Glomerular filtration rate ( GFR) estimationOrdered By: Rosie Fuller on 05-15-2024 Estimated GFR (MDRD) Non-Af Amer 70 mL/min >60 [facility] Comment on above: Non- GFR Calc GFR/1.73 sq M.predicted among non-blacks MDRD (S/P/Bld) [Vol rate/Area] 70 mL/min/{1.73_m2} >60 [facility] Comment on above: Non- GFR Calc Glucose measurementOrdered B y: Rosie Fuller on 05-15-2024 Glucose [Mass/Vol] 101 mg/dL 74-106 [facility] Comment on above: Fasting Glucose resu lt from 100 to 125 mg/dL suggests IMPAIRED HOMEOSTASIS per A.D.A. criteria. Hematocrit Auto (Bld) [Volum e fraction]Ordered By: Rosie Fuller on 05-15-2024 Hematocrit (Bld) [Volume fraction] 35.4 % Low 37-47 [facility] Hemoglobin measurementOrdere d By: Rosie Fuller on 05-15-2024 Hemoglobin (Bld) [Mass/Vol] 11.7 g/dL Low 12.0-15.0 [facility] Immature granulocytes/100 WB C Auto (Bld)Ordered By: Rosie Fuller on 05-15-2024 Immature granulocytes/100 WBC (Bld) 0.500 % 0.0-0.9 [facility] Comment on above: IG% - Immature Granu locytes (promyelocytes, myelocytes and metamyelocytes) > 1% indicates that a LEFT SHIFT is Present. Laboratory - Chemistry and C hemistry - challengeOrdered By: Rosie Fuller on 05-15-2024 AST [Catalytic activity/Vol] 22 U/L 15-37 [facility] Lymphocytes Auto (Unsp spec) [#/Vol]Ordered By: Rosie Fuller on 05-15-2024 Lymphocytes (Bld) [#/Vol] 1.20 10*3/uL 0.83-4.51 [facility] Lymphocytes/100 WBC Auto (Un sp spec)Ordered By: Rosie Fuller on 05-15-2024 Lymphocytes/100 WBC (Bld) 28.8 % 19-41 [facility] MCV (mean corpuscular volume ) determinationOrdered By: Rosie Fuller on 05-15-2024 MCV (RBC) [Entitic vol] 98.6 fL 81-99 [facility] Mean corpuscular hemoglobin (MCH) determinationOrdered By: Rosie Fuller on 05-15-2024 MCH (RBC) [Entitic mass] 32.6 pg High 27.0-32.0 [facility] Mean corpuscular hemoglobin concentration (MCHC) determinationOrdered By: Rosie Fuller on 05-15-2024 MCHC (RBC) [Mass/Vol] 33.1 g/dL 32-36 [facility] Mean platelet volume determi nationOrdered By: Rosie Fuller on 05-15-2024 Platelet mean volume (Bld) [Entitic vol] 10.2 fL 6.2-12.0 [facility] Monocyte percentageOrdered B y: Rosie Fuller on 05-15-2024 Monocytes/100 WBC (Bld) 8.4 % 0-10 [facility] Neutrophil percentageOrdered By: Rosie Fuller on 05-15-2024 Neutrophils/100 WBC (Bld) 59.4 % 47-70 [facility] Nucleated red blood cell per centageOrdered By: Rosie Fuller on 05-15-2024 Nucleated RBC/100 WBC (Bld) [Ratio] 0 % 0-5 [facility] Platelet countOrdered By: Erasto Fuller on 05-15-2024 Platelets (Bld) [#/Vol] 226 10*3/uL 150-450 [facility] Potassium measurementOrdered By: Rosie Fuller on 05-15-2024 Potassium [Moles/Vol] 3.9 mmol/L 3.5-5.1 [facility] RBC Auto (Bld) [#/Vol]Ordere d By: Rosie Fuller on 05-15-2024 RBC (Bld) [#/Vol] 3.59 10*6/uL Low 4.2-5.4 [facility] Serum anion gap measurementO rdered By: Rosie Fuller on 05-15-2024 Anion gap [Moles/Vol] 7 mmol/L 5-15 [facility] Serum globulin measurementOr dered By: Rosie Fuller on 05-15-2024 Globulin (S) [Mass/Vol] 3.6 g/dL 2.2-4.2 [facility] Serum or plasma alanine mgiuel otransferase (ALT) measurementOrdered By: Rosie Fuller on 05-15-2024 ALT [Catalytic activity/Vol] 22 U/L 13-56 [facility] Serum or plasma albumin tim urement (mass/volume)Ordered By: Rosie Fuller on 05-15-2024 Albumin [Mass/Vol] 3.9 g/dL 3.2-5.0 [facility] Serum or plasma alkaline fritz sphatase measurementOrdered By: Rosie Fuller on 05-15-2024 ALP [Catalytic activity/Vol] 104 U/L 45-117 [facility] Serum or plasma calcium tim urement (mass/volume)Ordered By: Rosie Fuller on 05-15-2024 Calcium [Mass/Vol] 8.8 mg/dL 8.5-10.1 [facility] Serum or plasma creatinine m easurement (mass/volume)Ordered By: Rosie Fuller on 05-15-2024 Creatinine [Mass/Vol] 0.85 mg/dL 0.55-1.02 [facility] Comment on above: The validity of the calculated GFR & GFRAA in patients over 70 years has not been determined. Clinical correlation is essential. Serum or plasma urea nitroge n measurement (mass/volume)Ordered By: Rosie Fuller on 05-15-2024 Urea nitrogen [Mass/Vol] 16 mg/dL 7-18 [facility] Sodium levelOrdered By: Kelly Fuller on 05-15-2024 Sodium [Moles/Vol] 139 mmol/L 136-145 [facility] Thyroid Stim Hormone (TSH)on 05-15-2024 TSH 3.910 uIU/mL High 0.358-3.74 0 [facility] Comment on above: Performed By: #### L 3100.5000, L100.0100, L501.9520, L500.4050 ####[facility] [id number] [place], [address] Total proteinOrdered By: Konstantin Fuller on 05-15-2024 Protein [Mass/Vol] 7.5 g/dL 6.4-8.2 [facility] White blood cell (WBC) count Ordered By: Rosie Fuller on 05-15-2024 WBC (Bld) [#/Vol] 4.2 10*3/uL Low 4.4-11.0 [facility] 36on 05-08-2024 36 Spoke to patient and gave her chemo schedule. She is aware that the HRD testing was cancelled due to OOP cost to her. She agrees with the plan and verbalizes understanding. Normal [facility] Office Visiton 05-08-2024 Follow-up visit [id number] Cary Swenson 1950 F Date Provider Department Center 05/08/2024 [id number] RICHEY [facility] 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 None Family History Problem Relation Age of Onset High Blood Pressure Mother Arthritis Mother Skin cancer Mother 60 Autoimmune disease Mother Hearing loss Mother Hypertension Mother Lung cancer Father 66 Thyroid disease Sister Depression Sister High Blood Pressure Sister Skin cancer Sister 60 Autoimmune disease Sister Hypertension Sister Hearing loss Daughter Suicide Attempts Son Osteoporosis Maternal Grandmother Uterine cancer Paternal Grandmother 62 Lung cancer Paternal Grandfather 56 Lung cancer Mother's Sister 75 Breast cancer Cousin 60 Comments: on dads side Breast cancer Cousin 60 Comments: on dads side Family Status - Relation Status Age at Mother Alive Father Sister Sister Daughter Son Maternal Grandmother Paternal Grandmother Paternal Grandfather Mother's Sister Cousin Alive Cousin Alive Level of Service:29682 [place] POSTOP FOLLOW UP VISIT RELATED TO ORIGINAL PX Reason for Visit and Comments: Endometrial Cancer [562] Chemotherapy [305] [facility] Progress Noteon 05-08-2024 Progress Note Postop visit Patient underwent retroperitoneal resection of a solitary enlarged lymph node. Patient denies any problems from the surgery. LEFT PERIAORTIC LYMPH NODE, BIOPSY-1 LYMPH NODE, POSITIVE FOR METASTATIC CARCINOMA COMPATIBLE WITH PATIENT'S HISTORY OF HIGH-GRADE SEROUS CARCINOMA (03/27) - HRD STUDIES ARE PENDING AND WILL FOLLOW IN AN ADDENDUM On exam the abdominal incision is healing nicely P) we discussed options to include a chemotherapy break versus going back on carboplatinum and adding Keytruda for 3 courses and Keytruda maintenance. We also discussed radiation therapy. After discussing the pros and cons of all approaches she would like to go back on IV chemotherapy along with immunotherapy. [facility] Progress Note We want to inform yo u that your patient's blood pressure was noted to be elevated in our office today. We thank you for trusting us with your patient's health. Last BP: BP Readings from Last 3 Encounters: 05/08/24 (!) 163/87 04/17/24 131/72 03/29/24 (!) 181/[address] [facility] Progress Note Spoke to patient regarding tx with Keytruda every 3 weeks. She would like her tx in [place]. Reviewed side effects including but not limited to: rash, thyroid issues, pneumonitis, colitis, body aches, fatigue, allergic reactions ect. She is agreeable to receiving it with carboplatin every 3 weeks. She has had carboplatin before but reviewed side effects again. Consent obtained and will call patient with her schedule tomorrow. She agrees with the plan and verbalizes understanding. Emotional support provided. [facility] 36on 04-18-2024 36 Pt has medicare and HRD was ordered. Pathology states would need an ABN signed by pt due to cost not covered by medicare. It would be over a $1000 for the pt responsibility. [facility] 36 Pt called with path. Discussed RT, chemo or observation. [facility] Progress Noteon 04-17-2024 Progress Note ----- ----- Attestation signed by Denis Richey MD at 04/17/2024 9:09 AM Patient rounded with residents. Doing well. Abdomen soft and nondistended. Okay to discharge to home today ----- 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 Progress Note PLEASE SECURE CHAT 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 ONC CALL RES FOR QUESTIONS OR CONCERNS. Date: 04/17/2024 Time: 6:20 AM Cary Swenson 73 y.o. female, Admitted for postoperative care, POD #1 s/p exploratory laparotomy and removal of para-aortic lymph node Patient seen and examined. Overnight, patient states she did well and she has no complaints this morning. Pain is controlled. Patient is tolerating oral intake. She is urinating. She is ambulating, she did have some bleeding onto her dressing when she got up the first time, but no further bleeding since. She is passing flatus. She has not had a bowel movement. She denies Fever/Chills, Chest Pain, SOB, N/V. Vitals: Vitals: 04/16/24 1832 04/16/24 2109 04/17/24 0114 04/17/24 0510 BP: 150/80 158/87 131/71 122/66 BP Location: Right arm Right arm Right arm Right arm Patient Position: Sitting Lying Lying Lying Pulse: 85 85 81 75 Resp: 20 Temp: 36.9 ?C (98.4 ?F) 36.4 ?C (97.5 ?F) 36.4 ?C (97.5 ?F) 36.6 ?C (97.9 ?F) TempSrc: Temporal Temporal Temporal Temporal SpO2: 97% 97% 94% 94% Weight: Height: Intake/Output: Current Shift: I/O this shift: In: 550 [P.O.:550] Out: - Physical Exam: Gen: NAD, alert and cooperative HEENT: Normocephalic, atraumatic Resp: No increased work of breathing Abd: soft, NT/ND, no rebound, no guarding. Incisions: Left paramedial vertical incision, dressing in place with 3x3 cm area of dried blood on lower half of dressing that was outlined last evening and has not expanded past outline. Medications: Current Facility-Administered Medications Medication Dose Route Frequency Provider Last Rate Last Admin acetaminophen (Tylenol) tablet 1,000 mg 1,000 mg Oral q8h Jolynn Thomas, DO 1,000 mg at 04/16/242118 ketorolac (Toradol) injection 15 mg 15 mg IntraVENous q6h Jolynn Joaoko, DO naloxone (Narcan) injection 0.4 mg 0.4 mg IntraVENous q5 min PRN Denis Richey MD ondansetron ODT (Zofran-ODT) disintegrating tablet 4 mg 4 mg Oral q8h PRN Jolynn Joaoko, DO Or ondansetron (Zofran) injection 4 mg 4 mg IntraVENous q6h PRN Jolynn Shepherdko, DO oxyCODONE (Roxicodone) immediate release tablet 5 mg 5 mg Oral q4h PRN Jolynn Joaoko, DO Or oxyCODONE (Roxicodone) immediate release tablet 10 mg 10 mg Oral q4h PRN Jolynn Thomas, DO polyethylene glycol (PEG) 3350 (Miralax) packet 17 g 17 g Oral Daily PRN Jolynn Thomas, DO senna-docusate sodium (Senokot-S) 8.6-50 MG tablet 2 tablet 2 tablet Oral Daily PRN Jolynn Joaoko, DO sodium chloride 0.9 % infusion 5-250 mL/hr IntraVENous PRN Jolynn Joaoko, DO sodium chloride 0.9% (NS) flush 10 mL 10 mL IntraVENous 2 times per day Jolynn Thomas, DO 10 mL at 04/16/24 2100 sodium chloride 0.9% (NS) flush 10 mL 10 mL IntraVENous PRN Jolynn Guzman, DO Facility-Administered Medications Ordered in Other Encounters Medication Dose Route Frequency Provider Last Rate Last Admin sodium chloride 0.9 % infusion 5-250 mL/hr IntraVENous Once PRN Denis Richey MD Diagnostics: Diagnostic Results Labs: Admission on 04/16/2024 Component Date Value Ref Range Status Auto WBC 04/16/2024 4.5 3.6 - 10.7 10*3/uL Final RBC 04/16/2024 3.47 (L) 3.80 - 5.20 10*6/uL Final Hemoglobin 04/16/2024 11.4 (L) 11.7 - 16.0 g/dL Final Hematocrit 04/16/2024 33.6 (L) 35.0 - 47.0 % Final MCV 04/16/2024 96.8 77.0 - 99.0 fL Final MCH 04/16/2024 32.9 26.0 - 34.0 pg Final MCHC 04/16/2024 33.9 30.5 - 36.0 % Final RDW 04/16/2024 12.5 11.5 - 15.0 % Final Platelets 04/16/2024 230 140 - 440 10*3/uL Final MPV 04/16/2024 10.8 9.0 - 12.7 fL Final ABO Grouping 04/16/2024 A Final Antibody Screen 04/16/2024 NEG Final Rh Type 04/16/2024 NEG Final Assessment/Plan: Cary Swenson 73 y.o. female, admitted for postoperative care POD #1 s/p exploratory laparotomy, removal of para-aortic lymph node - Doing well, vitals stable - Peace removed following surgery, voiding spontaneously - Encourage ambulation and use of incentive spirometer - Pain controlled: yes - Labs/Imaging: None - DVT Proph:Ambulation, SCDs - Abx: None - Diet:General - ADAT - IVF: Heplocked - Disposition: Anticipate discharge home today pending discussion with attending Stage IIIC1 Endometrial Cancer - Diagnosed in June 2020 with robotic hysterectomy, BSO, PLND - Had severe reaction after first course of chemotherapy (Carboplatinum,Taxol, Herceptin) in September 2020 and declined further chemotherapy - Recurrence on anterior vaginal wall in February 2022 and PET was positive for carcinoma - Resumed chemotherapy with Trastuzumab, Carboplatin and Abraxane until July 2022, now (more content not included)... Normal [facility] BLOOD TYPE AND SCREEN GELon 04-16-2024 ABO GROUPING A Normal [facility] Comment on above: Order Comment: HOLD. Specimen is valid for 3 days - nurse to verify valid specimen Performed By: #### L [id number] ####Transition Of Care Specialist: YVONNE BRAY ([phone])[facility] ([facility])[address] [place] [address] RH TYPE IN BLOOD Negative Normal [facility] Comment on above: Order Comment: HOLD. Specimen is valid for 3 days - nurse to verify valid specimen Performed By: #### L [id number] ####Transition Of Care Specialist: YVONNE BRAY ([id number])[facility] ([facility])[address] [place] [address] Blood type and Crossmatch pa bee (Bld)on 04-16-2024 ABO group Nom (Bld) A [facility] Blood group antibody screen GEL Ql Negative [facility] D Ag Ql (RBC) Negative [facility] CBC (HEMOGRAM)on 04-16-2024 Erythrocyte distribution width (RBC) [Ratio] 12.5 % Normal 11.5-15.0 [facility] Comment on above: Performed By: #### L [id number] ####Transition Of Care Specialist: YVONNE BRAY ([id number])[facility] ([facility])[address] [place] [address] Hematocrit (Bld) [Volume fraction] 33.6 % Low 35.0-47.0 [facility] Comment on above: Performed By: #### L [id number] ####Transition Of Care Specialist: YVONNE BRAY ([phone])[facility] ([facility])[address] [place] [address] Hemoglobin (Bld) [Mass/Vol] 11.4 g/dL Low 11.7-16.0 [facility] Comment on above: Performed By: #### L [id number] ####Transition Of Care Specialist: YVONNE BRAY ([phone])[facility])[address] [place] [address] MCH (RBC) [Entitic mass] 32.9 pg Normal 26.0-34.0 [facility] Comment on above: Performed By: #### L [id number] ####Transition Of Care Specialist: YVONNE BRAY ([phone])[facility])[address] [place] [address] MCHC 33.9 % Normal 30.5-36.0 [facility] Comment on above: Performed By: #### L [id number] ####Transition Of Care Specialist: YVONNE BRAY ([id number])[facility])[address] [place] [address] MCV (RBC) [Entitic vol] 96.8 fL Normal 77.0-99.0 [facility] Comment on above: Performed By: #### L [id number] ####Transition Of Care Specialist: YVONNE BRAY ([phone])[facility])[address] [place] [address] Platelet mean volume (Bld) [Entitic vol] 10.8 fL Normal 9.0-12.7 [facility] Comment on above: Performed By: #### L [id number] ####Transition Of Care Specialist: YVONNE BRAY ([phone])[facility])[address] [place] [address] Platelets (Bld) [#/Vol] 230 10*3/uL Normal 140-440 [facility] Comment on above: Performed By: #### L [id number] ####Transition Of Care Specialist: YVONNE BRAY ([phone])[facility])[address] [place] [address] RBC (Bld) [#/Vol] 3.47 10*6/uL Low 3.80-5.20 [facility] Comment on above: Performed By: #### L [id number] ####Transition Of Care Specialist: YVONNE BRAY ([phone])[facility])[address] [place] [address] WBC (Bld) [#/Vol] 4.5 10*3/uL Normal 3.6-10.7 [facility] Comment on above: Performed By: #### L [id number] ####Transition Of Care Specialist: YVONNE BRAY ([id number])[facility] ([facility])[address] [place] [address] CBC panel Auto (Bld)on 04-16 Erythrocyte distribution width (RBC) [Ratio] 12.5 % 11.5 - 15.0 % [facility] Hematocrit (Bld) [Volume fraction] 33.6 % Low 35.0 - 47.0 % [facility] Hemoglobin (Bld) [Mass/Vol] 11.4 g/dL Low 11.7 - 16.0 g/dL [facility] Interpretation and review of laboratory results Abnormal [facility] MCH (RBC) [Entitic mass] 32.9 pg 26. 0 - 34.0 pg [facility] MCHC (RBC) [Mass/Vol] 33.9 % 30.5 - 36.0 % [facility] MCV (RBC) [Entitic vol] 96.8 fL 77.0 - 99.0 fL [facility] Platelet mean volume (Bld) [Entitic vol] 10.8 fL 9.0 - 12.7 fL [facility] Platelets (Bld) [#/Vol] 230 10*3/uL 140 - 440 10*3/uL [facility] RBC (Bld) [#/Vol] 3.47 10*6/uL Low 3.80 - 5.20 10*6/uL [facility] WBC (Bld) [#/Vol] 4.5 10*3/uL 3.6 - 10.7 10*3/uL [facility] Nursing Noteon 04-16-2024 Nursing Note Sherron Thornton jude ated with room number. Report called H5 RN [facility] Nursing Note Sherron Thornton cal led with update at this time [facility] Op Noteon 04-16-2024 Op Note Date of surgery 04/16 preoperative diagnosis retroperitoneal mass Postoperative diagnosis secondary cancer of retroperitoneum, secondary cancer retroperitoneal node, periaortic node Procedure excision retroperitoneal mass less than 5 cm in diameter Surgeon Kaiden anesthesia General Description of operation patient identified brought to the operating room and after ministration of general anesthesia Peace cath was placed she underwent abdominal prep and drape and timeout was performed. A left paramedian incision was made sharply using a knife to divide down to the skin Bovie cautery was used to divide the subcutaneous tissue down to the external oblique fascia which was then opened using Bovie cautery. The edge of the rectus abdominis muscle was identified, the edge of the posterior fascia was identified and this was sharply opened using Metzenbaum scissors. This then allowed the retroperitoneal space to be explored and the posterior sheath incision was extended. The retroperitoneal space was gently open, the large left periaortic lymph node was identified which measured less than 5 cm in size. It was very carefully dissected out the para-aortic safia bed using bipolar cautery as well as monopolar cautery and hemoclips. The area was irrigated it was noted to be dry no other adenopathy was noted. The mass was sent to pathology. The area was irrigated. The posterior sheath was then closed using a running #0 PDS followed by the anterior sheath being closed with a running 0 PDS. Subcutaneous tissue was reapproximated using interrupted 0 PDS followed by running 3-0 Monocryl subcuticular on the skin with Steri-Strips. Blood loss was minimal she was taken to the cover room in stable condition by anesthesia 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 Priority Lab ID 1 Lymph Node Tissue TISSUE EXAM Denis Richey MD 04/16/24 1351 No Routine Description: Left para aortic node Staff: National Account Manager: Elise Lopez RN Scrub Person: Gracia Mcrae RN [place] to Circ: Key Trinh RN Findings: Retroperitoneal mass, secondary malignancy of periaortic node Complications: None; patient tolerated the procedure well. Specimens Collected: Order Name Source Comment Collection Info Order Time POTASSIUM WITH MG REFLEX For patients on dialysis to draw potassium day of surgery 04/16/2024 12:14 PM PROTHROMBIN TIME If patient on coumadin within 4 days prior. 04/16/2024 12:14 PM HCG QUALITATIVE URINE Urine, Clean Catch Discontinue this order if: 1. patient is older than 55 years old 2. has had a prior hysterectomy 3. today's surgery is for treatment of known or suspected ectopic or loss. 4. patient has a known intrauterine but this is a needed surgery. 04/16/2024 12:14 PM CBC (HEMOGRAM) Blood, Venous Collected By: Joy Conteh RN 04/16/2024 12:14 PM BLOOD TYPE AND SCREEN GEL Blood, Venous HOLD. Specimen is valid for 3 days - nurse to verify valid specimen Collected By: Joy Conteh RN 04/16/2024 12:14 PM TISSUE EXAM Lymph Node Hx pap serous endo cancer. Please send for HRD Collected By: Denis Richey MD 04/16/2024 1:52 PM Wound Class: Class I: Clean Blood Products: None Prophylactic Antibiotics: Pre-operative antibiotics were not given because antibiotics are not indicated for this procedure. [facility] [id number] 04-12-2024 [id number] Medication List Accurate as of April 12, 2024 9:12 AM. Always use your most recent med list. Alpha-Lipoic Acid 600 MG capsule Medication Adjustments for Surgery: Hold morning of surgery B-COMPLEX/VITAMIN C (W/ CA) PO Medication Adjustments for Surgery: Hold morning of surgery multivitamin with minerals 18-400 mg-mcg tablet tablet Notes to patient: Pt does not take. saccharomyces boulardii 250 MG capsule Commonly known as: Florastor Medication Adjustments for Surgery: Hold morning of surgery Additional Instructions: DIRECTOR MEDICAID AND PARKING IN THE MAIN DECK ARE FREE DAY OF SURGERY. PARKING IN THE DECK-- AFTER PARKING TAKE THE ELEVATOR TO LEVEL ONE AND TAKE THE BRIDGE TO THE HOSPITAL. GO TO THE RIGHT AND GO AROUND THE CORNER TO THE SAME DAY SURGERY DESK AND CHECK IN THERE. IF GOING IN THE MAIN ENTRANCE-- TURN LEFT AND GO DOWN THE DEVI TO THE H ELEVATORS AND TAKE THEM TO ONE, LEFT OFF THE ELEVATOR AND GO AROUND TO THE SAME DAY DESK AND CHECK IN. You may take your prescription pain medication. You may take Tylenol for pain. NO Motrin, ibuprofen or Advil for 24 hours prior to surgery or longer if instructed by your surgeon. NO Aleve or Naprosyn for 5 days prior to surgery or longer if instructed by your surgeon. IF YOU TAKE BLOOD THINNERS OR ASPIRIN: no aspirin for 5 days prior to surgery. Follow any instructions given to you by Dr. Richey. Shower with chlorhexadine shower kit that you have left over from having had a hysterectomy both the night before and morning of surgery before coming to the hospital. No makeup, lotion, powder, deodorant or body spays. No hair products. Remove all jewelry and leave it at home. Wear loose comfortable clothing to go home in. You may brush your teeth morning of surgery. Do not wear contacts day of surgery. No marijuana (THC), smoking or alcohol for 24 hours prior to surgery. Please arrange for a responsible adult to drive you home after your surgery and that there is a responsible adult with you for 24 hours post discharge. If you have specific questions, please call your surgeon. You will receive a call the day before your surgery to verify your arrival time and date. You will be asked to arrive at least two hours prior to your scheduled surgery time. Please bring your [facility] Surgical folder and medication list with you day of surgery. We encourage you to write down any questions you may have for the surgeon, anesthesiologist, or other members of the surgical team and bring it with you the day of surgery. Please bring photo ID and insurance information. [place] [id number] 36 Pt called will romano e to retroperitoneal approach [address] 04-10-2024 36 PAT: 04.12.2024 at 9 am by phone SX: 04.15.2024 at 11 am arrival at 9 am Post op 05.10.2024 at 1:30 pm Instructions given. [facility] 36 Patient called, disc ussed PET scan. Will plan on robotic removal of the left periaortic node. [facility] 36 Patient mentioned th at she is returning a call from provider and would like a callback, please contact when able, thank you [address] 04-05-2024 36 Called Alejandra varma and cancelled trazimera appointments per Dr. Richey. Normal [facility] 36 Pt called with PET. To stop herceptin. Will request films. Discussed review of films then possible surgery Normal [facility] PET/CT Tumor Base -Thigh Sub son 04-02-2024 PET/CT Tumor Base -Thigh Subs [facility] Imaging Services [address] [place] [address] PET/CT Tumor Base -Thigh Subs MR#: [id number] Acct: [id number] Name: CARY SWENSON Rep #: [id number] : 1950 F 73 From: [place] PCP: Dr. Denis Richey MD Status: REG CL Study: PET/CT Tumor Base -Thigh Subs Date of Exam: Exam# [id number] Ordering Dr: Denis Ricehy MD [id number] EXAMINATION: FDG PET-CT INDICATIONS: A 73-year-old female with history of endometrial carcinoma presenting for restaging examination. COMPARISON EXAMINATION: FDG PET study dated 10/03/23 INDEX LESION SIZE SUV INTERPRETATION Mid abdominal retroperitoneum left of the midline 12.1-mm 9.0 Fulfills quantitative criteria for viable neoplasm Heterogeneous soft tissues right shoulder 22.4-mm (largest) 3.5 (max) Warrants further investigation with magnetic resonance imaging TECHNIQUE: Following the intravenous administration of 13.62 mCi of F-18 deoxyglucose via the left antecubital fossa, multiplanar image acquisitions of the neck, chest, abdomen and pelvis to level of mid thigh, obtained at one hour post radiopharmaceutical administration contemporaneously interpreted with the current CT of the neck, chest, abdomen and pelvis, to level of mid thigh, dated 04/02/24 via coregistration and FDG PET study dated 10/03/23 reveals: BLOOD GLUCOSE LEVEL:?? 97 mg/dl?HEIGHT:?6 3 inches?WEIGHT: 150 lbs. FINDINGS: HEAD/NECK: There is no evidence of abnormal increased glucose metabolism in the pharyngeal mucosal space, parapharyngeal space, bilateral-lateral and anterior neck, hypopharynx and distribution of the laryngeal structures. The visualized portion of the cerebral cortical-subcortical structures demonstrate symmetric and preserved glucose metabolism. CHEST: There is no quantitative scintigraphic evidence of abnormal increased glucose metabolism within the context of the bilateral hemithorax pulmonary parenchyma, right and left hemithorax pleural interface, mediastinal structures and right-left thoracic perihilum. Previously defined morphologic-anatomic changes noted on review of CT of the chest dated 10/03/23, are essentially unchanged on the current examination. ABDOMEN/PELVIS: Facilitated FDG concentration is noted in the mid abdominal retroperitoneum to the left of the midline in the region of the lateral aortic lymph node basin. The calculated maximal standard uptake value is 9.0. The maximal axial diameter of the corresponding soft tissue density is 12.1-mm. Normal physiologic distribution of the radiopharmaceutical is apparent in the hepatic (3.2) and splenic parenchyma, both renal units, bladder and visualized intestinal tract. Review of CT of the abdomen and pelvis dated 10/03/23 demonstrates no significant interval change. SKELETAL: Degenerative changes are noted in the cervical, thoracic and lumbar spine without evidence of increased radiopharmaceutical concentration. Facilitated uptake is noted in the soft tissues of the right shoulder articulation. The calculated maximal standard uptake value is 3.5. The maximal axial diameter of the most conspicuous metabolic, morphologic abnormality is 22.4-mm. PET/PET/CT Tumor Base -Thigh Subs IMPRESSION: 1. ABNORMAL EXAMINATION INDICATIVE OF MALIGNANT VIABLE NEOPLASM. 2. Enhanced tracer uptake noted in the mid abdominal retroperitoneum to the left of the midline fulfills quantitative criteria for viable neoplasm. 3. Increased glucose metabolism newly visualized in the region of the right shoulder warrants further investigation with magnetic resonance imaging. Electronic Signature Sunday Granados D.O. Accurate Quantification of SUVs for this report are calculated using the exclusive [employer]. (U.S. Patent No. [id number] 983 [phone] [phone] [place] patent [phone]). Standardization and correction of the FDG SUV metric via [employer] technology allow for vendor non-specific objective quantitative examination comparison and optimization of the sensitivity and specificity of the FDG PET-CT examination. [email or web address] Electronically Signed: Sunday Granados DO at 7:36 EST , CC: Dr. Denis Richey MD Drain Tile Machine Operator: Signed Normal [facility] CA 125on 03-29-2024 CA 125 15.0 U/mL Normal 0.0-35.0 [facility] Comment on above: Result Comment: MAHENDRA Escamilla COMMENTS: Testing performed on the [employer] using a two-step chemiluminescent microparticle immunoassay method. Results obtained by different methods should not be used interchangeably. A 10.75% increase in assay value is considered as a significant change. Results obtained by different methods should not be used interchangeably. The CA 125 result is based on a new assay and the results may not be comparable with assays run prior to 12/13/2022. Performed By: #### L [id number] ####Transition Of Care Specialist: DAVON OJEDA ([phone])[facility] [place] [address] CBC W Auto Differential pane l (Bld)on 03-29-2024 Basophils (Bld) [#/Vol] 0 10*3/uL 0.0 - 0.2 10*3/uL [facility] Basophils/100 WBC (Bld) 0.7 % 0.0 - 2.0 % [facility] Eosinophils (Bld) [#/Vol] 0.1 10*3/uL 0.0 - 0.5 10*3/uL [facility] Eosinophils/100 WBC (Bld) 1.4 % 0.0 - 6.0 % [facility] Erythrocyte distribution width (RBC) [Ratio] 12.4 % 11.5 - 15.0 % [facility] Hematocrit (Bld) [Volume fraction] 36.4 % 35.0 - 47.0 % [facility] Hemoglobin (Bld) [Mass/Vol] 11.8 g/dL 11.7 - 16.0 g/dL [facility] Immature granulocytes (Bld) [#/Vol] 0 10*3/uL NINF - 0.1 10*3/uL [facility] Immature granulocytes/100 WBC (Bld) 0.2 % 0.0 - 2.0 % [facility] Interpretation and review of laboratory results Abnormal [facility] Lymphocytes (Bld) [#/Vol] 1.2 10*3/uL 1.0 - 4.3 10*3/uL [facility] Lymphocytes/100 WBC (Bld) 28.4 % 15.0 - 45.0 % [facility] MCH (RBC) [Entitic mass] 31.9 pg 26. 0 - 34.0 pg [facility] MCHC (RBC) [Mass/Vol] 32.4 % 30.5 - 36.0 % [facility] MCV (RBC) [Entitic vol] 98.4 fL 77.0 - 99.0 fL [facility] Monocytes (Bld) [#/Vol] 0.3 10*3/uL 0.0 - 0.9 10*3/uL [facility] Monocytes/100 WBC (Bld) 6.3 % 5.0 - 13.0 % [facility] Neutrophils (Bld) [#/Vol] 2.7 10*3/uL 1.8 - 7.5 10*3/uL [facility] Neutrophils/100 WBC (Bld) 63 % 38.0 - 82.0 % [facility] Nucleated RBC/100 WBC (Bld) [Ratio] 0 % [facility] Platelet mean volume (Bld) [Entitic vol] 10.7 fL 9.0 - 12.7 fL [facility] Platelets (Bld) [#/Vol] 223 10*3/uL 140 - 440 10*3/uL [facility] RBC (Bld) [#/Vol] 3.7 10*6/uL Low 3.80 - 5.20 10*6/uL [facility] WBC (Bld) [#/Vol] 4.3 10*3/uL 3.6 - 10.7 10*3/uL [facility] CBC WITH AUTO DIFFERENTIALon 03-29-2024 Basophils (Bld) [#/Vol] 0.0 10*3/uL Normal 0.0-0.2 [facility] Comment on above: Performed By: #### L [id number] ####Transition Of Care Specialist: YVONNE BRAY ([phone])[facility] ([address] Basophils/100 WBC (Bld) 0.7 % Normal 0.0-2.0 [facility] Comment on above: Performed By: #### L [id number] ####Transition Of Care Specialist: YVONNE BRAY ([phone])[facility])[address] [place] [address] Eosinophils (Bld) [#/Vol] 0.1 10*3/uL Normal 0.0-0.5 [facility] Comment on above: Performed By: #### L [id number] ####Transition Of Care Specialist: YVONNE BRAY ([phone])[facility])[address] [place] [address] Eosinophils/100 WBC (Bld) 1.4 % Normal 0.0-6.0 [facility] Comment on above: Performed By: #### L [id number] ####Transition Of Care Specialist: YVONNE BRAY ([phone])[facility])[address] [place] [address] Erythrocyte distribution width (RBC) [Ratio] 12.4 % Normal 11.5-15.0 [facility] Comment on above: Performed By: #### L [id number] ####Transition Of Care Specialist: YVONNE BRAY ([phone])[facility])[address] [place] [address] Hematocrit (Bld) [Volume fraction] 36.4 % Normal 35.0-47.0 [facility] Comment on above: Performed By: #### L [id number] ####Transition Of Care Specialist: YVONNE BRAY ([phone])[facility])[address] [place] [address] Hemoglobin (Bld) [Mass/Vol] 11.8 g/dL Normal 11.7-16.0 [facility] Comment on above: Performed By: #### L [id number] ####Transition Of Care Specialist: YVONNE BRAY ([phone])[facility])[address] [place] [address] IMMATURE GRANS % 0.2 % Normal 0.0-2.0 [facility] Comment on above: Performed By: #### L [id number] ####Transition Of Care Specialist: YVONNE BRAY ([phone])[facility])[address] [place] [address] IMMATURE GRANS ABSOLUTE 0.0 10*3/uL Normal <0.1 [facility] Comment on above: Performed By: #### L [id number] ####Transition Of Care Specialist: YVONNE BRAY ([phone])[facility])[address] [place] [address] Lymphocytes (Bld) [#/Vol] 1.2 10*3/uL Normal 1.0-4.3 [facility] Comment on above: Performed By: #### L [id number] ####Transition Of Care Specialist: YVONNE BRAY ([phone])[address] Lymphocytes/100 WBC (Bld) 28.4 % Normal 15.0-45.0 [facility] Comment on above: Performed By: #### L [id number] ####Transition Of Care Specialist: YVONNE BRAY ([phone])[facility])[address] [place] [address] MCH (RBC) [Entitic mass] 31.9 pg Normal 26.0-34.0 [facility] Comment on above: Performed By: #### L [id number] ####Transition Of Care Specialist: YVONNE BRAY ([phone])[address] MCHC 32.4 % Normal 30.5-36.0 [facility] Comment on above: Performed By: #### L [id number] ####Transition Of Care Specialist: YVONNE BRAY ([phone])[address] MCV (RBC) [Entitic vol] 98.4 fL Normal 77.0-99.0 [facility] Comment on above: Performed By: #### L [id number] ####Transition Of Care Specialist: YVONNE [id number])[facility] ([facility])[address] [place] [address] Monocytes (Bld) [#/Vol] 0.3 10*3/uL Normal 0.0-0.9 [facility] Comment on above: Performed By: #### L [id number] ####Transition Of Care Specialist: YVONNE BRAY ([id number])[facility] ([facility])[address] [place] [address] Monocytes/100 WBC (Bld) 6.3 % Normal 5.0-13.0 [facility] Comment on above: Performed By: #### L [id number] ####Transition Of Care Specialist: YVONNE BRAY ([phone])[facility])[address] [place] [address] NEUTROPHILS ABSOLUTE 2.7 10*3/uL Normal 1.8-7.5 [facility] Comment on above: Performed By: #### L [id number] ####Transition Of Care Specialist: YVONNE BRAY ([phone])[facility] ([facility])[address] [place] [address] Neutrophils/100 WBC (Bld) 63.0 % Normal 38.0-82.0 [facility] Comment on above: Performed By: #### L [id number] ####Transition Of Care Specialist: YVONNE BRAY ([phone])[facility] ([facility])[address] [place] [address] NRBC 0.0 /100 WBCs Normal 0.0-2.0 [facility] Comment on above: Performed By: #### L [id number] ####Transition Of Care Specialist: YVONNE BRAY ([id number])[facility] ([facility])[address] [place] [address] Platelet mean volume (Bld) [Entitic vol] 10.7 fL Normal 9.0-12.7 [facility] Comment on above: Performed By: #### L [id number] ####Transition Of Care Specialist: YVONNE BRAY ([phone])[facility] ([facility])[address] [place] [address] [place] Platelets (Bld) [#/Vol] 223 10*3/uL Normal 140-440 [facility] Comment on above: Performed By: #### L [id number] ####Transition Of Care Specialist: YVONNE BRAY ([phone])[facility] ([facility])[address] [place] [address] RBC (Bld) [#/Vol] 3.70 10*6/uL Low 3.80-5.20 [facility] Comment on above: Performed By: #### L [id number] ####Transition Of Care Specialist: YVONNE BRAY ([phone])[facility] ([facility])[address] [place] [address] WBC (Bld) [#/Vol] 4.3 10*3/uL Normal 3.6-10.7 [facility] Comment on above: Performed By: #### L [id number] ####Transition Of Care Specialist: YVONNE BRAY ([id number])[facility] ([facility])[address] [place] [address] COMPREHENSIVE METABOLIC PANE Juan 03-29-2024 Albumin [Mass/Vol] 4.2 g/dL Normal 3.4-4.8 [facility] Comment on above: Performed By: #### L [id number] ####Transition Of Care Specialist: YVONNE BRAY ([phone])[facility])[address] [place] [address] ALP [Catalytic activity/Vol] 101 U/L Normal 40-150 [facility] Comment on above: Performed By: #### L [id number] ####Transition Of Care Specialist: YVONNE BRAY ([phone])[facility])[address] [place] [address] ALT [Catalytic activity/Vol] 27 U/L Normal <30 [facility] Comment on above: Performed By: #### L [id number] ####Transition Of Care Specialist: YVONNE BRAY ([phone])[facility])[address] [place] [address] Anion gap [Moles/Vol] 7 mmol/L Normal 3-13 [facility] Comment on above: Performed By: #### L [id number] ####Transition Of Care Specialist: YVONNE BRAY ([phone])[facility] ([facility] [place] [address] [place] AST [Catalytic activity/Vol] 31 U/L Normal <34 [facility] Comment on above: Performed By: #### L [id number] ####Transition Of Care Specialist: YVONNE BRAY ([phone])[facility] ([facility] [place] [address] [place] Bilirubin [Mass/Vol] 0.4 mg/dL Normal <1.2 [facility] Comment on above: Performed By: #### L [id number] ####Transition Of Care Specialist: YVONNE BRAY ([phone])[facility] ([facility])[address] [place] [address] Calcium [Mass/Vol] 9.2 mg/dL Normal 8.8-10.0 [facility] Comment on above: Performed By: #### L [id number] ####Transition Of Care Specialist: YVONNE BRAY ([phone])[facility])[address] [place] [address] [place] Chloride [Moles/Vol] 103 mmol/L Normal 98-107 [facility] Comment on above: Performed By: #### L [id number] ####Transition Of Care Specialist: YVONNE BRAY ([phone])[facility] [place] [address] [place] CO2 [Moles/Vol] 28 mmol/L Normal 23-31 [facility] Comment on above: Performed By: #### L [id number] ####Transition Of Care Specialist: YVONNE BRAY ([phone])[facility] [place] [address] [place] Creatinine [Mass/Vol] 0.97 mg/dL Normal 0.57-1.11 [facility] Comment on above: Performed By: #### L [id number] ####Transition Of Care Specialist: YVONNE BRAY ([phone])[facility])[address] [place] [address] [place] GLOMERULAR FILTRATION RATE ML/MIN/1.73 SQ M.PREDICTED 62.6 mL/min/1.73m*2 Normal >60.0 [facility] Comment on above: Result Comment: Calc ulation based on the Chronic Kidney Disease Epidemiology Collaboration (CKD-EPI) equation refit without adjustment for race Performed By: #### L [id number] ####Transition Of Care Specialist: YVONNE BRAY ([phone])[facility])[address] [place] [address] Glucose [Mass/Vol] 91 mg/dL Normal 82-115 [facility] Comment on above: Performed By: #### L [id number] ####Transition Of Care Specialist: YVONNE BRAY ([phone])[facility])[address] [place] [address] Potassium [Moles/Vol] 3.7 mmol/L Normal 3.5-5.1 [facility] Comment on above: Result Comment: [facility] potassium values may be up to 0.5 mmol/L lower than serum values. Performed By: #### L [id number] ####Transition Of Care Specialist: YVONNE BRAY ([phone])[facility] ([facility])[address] [place] [address] Protein [Mass/Vol] 7.3 g/dL Normal 6.4-8.3 [facility] Comment on above: Performed By: #### L [id number] ####Transition Of Care Specialist: YVONNE BRAY ([phone])[facility])[address] [place] [address] Sodium [Moles/Vol] 138 mmol/L Normal 136-145 [facility] Comment on above: Performed By: #### L [id number] ####Transition Of Care Specialist: YVONNE BRAY ([phone])[facility])[address] [place] [address] Urea nitrogen [Mass/Vol] 14 mg/dL Normal 9-23 [facility] Comment on above: Performed By: #### L [id number] ####Transition Of Care Specialist: YVONNE BRAY ([phone])[facility])[address] [place] [address] Comprehensive metabolic 1998 panelon 03-29-2024 Albumin [Mass/Vol] 4.2 g/dL 3.4 - 4.8 g/dL [facility] ALP [Catalytic activity/Vol] 101 U/L 40 - 150 U/L [facility] ALT [Catalytic activity/Vol] 27 U/L NINF - 30 U/L [facility] Anion gap [Moles/Vol] 7 mmol/L 3 - 13 mmol/L [facility] AST [Catalytic activity/Vol] 31 U/L NINF - 34 U/L [facility] Bilirubin [Mass/Vol] 0.4 mg/dL NINF - 1.2 mg/dL [facility] Calcium [Mass/Vol] 9.2 mg/dL 8.8 - 10. 0 mg/dL [facility] Chloride [Moles/Vol] 103 mmol/L 98 - 10 7 mmol/L [facility] CO2 [Moles/Vol] 28 mmol/L 23 - 31 mmol/L [facility] Creatinine [Mass/Vol] 0.97 mg/dL 0.57 - 1.11 mg/dL [facility] GFR/1.73 sq M.predicted (S/P/Bld) [Vol rate/Area] 62.6 mL/min - PINF [facility] Comment on above: Calculation based on the Chronic Kidney Disease Epidemiology Collaboration (CKD-EPI) equation refit without adjustment for race Glucose [Mass/Vol] 91 mg/dL 82 - 115 mg/dL [facility] Interpretation and review of laboratory results Normal [facility] Potassium [Moles/Vol] 3.7 mmol/L 3.5 - 5.1 mmol/L [facility] Comment on above: Plasma potassium kimberli ues may be up to 0.5 mmol/L lower than serum values. Protein [Mass/Vol] 7.3 g/dL 6.4 - 8.3 g/dL [facility] Sodium [Moles/Vol] 138 mmol/L 136 - 145 mmol/L [facility] Urea nitrogen [Mass/Vol] 14 mg/dL 9 - 23 mg/dL [facility] Laboratory - Chemistry and C hemistry - challengeon 03-29-2024 Cancer Ag 125 Qn 15 [arb'U]/mL 0.0 - 35.0 U/mL [facility] No Panel Informationon 03-29 Interpretation and review of laboratory results Normal [facility] Testing performed on the [employer] using a two-step chemiluminescent microparticle immunoassay method. Results obtained by different methods should not be used interchangeably. A 10.75% increase in assay value is considered as a significant change. Results obtained by different methods should not be used interchangeably. The CA 125 result is based on a new assay and the results may not be comparable with assays run prior to 12/13/2022. 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 None Family History Problem Relation Age of Onset High Blood Pressure Mother Arthritis Mother Skin cancer Mother 60 Autoimmune disease Mother Hearing loss Mother Hypertension Mother Lung cancer Father 66 Thyroid disease Sister Depression Sister High Blood Pressure Sister Skin cancer Sister 60 Autoimmune disease Sister Hypertension Sister Hearing loss Daughter Suicide Attempts Son Osteoporosis Maternal Grandmother Uterine cancer Paternal Grandmother 62 Lung cancer Paternal Grandfather 56 Lung cancer Mother's Sister 75 Breast cancer Cousin 60 Comments: on dads side Breast cancer Cousin 60 Comments: on dads side Family Status - Relation Status Age at Mother Alive Father Sister Sister Daughter Son Maternal Grandmother Paternal Grandmother Paternal Grandfather Mother's Sister Cousin Alive Cousin Alive Level of Service:28766 [place] OFFICE/OUTPATIENT ESTABLISHED MDM 10 MIN Reason for Visit and Comments: Endometrial Cancer [562] Chemotherapy [305] Normal [facility] Progress Noteon 03-29-2024 Progress Note Visited with Cary didier round 3:50pm in the infusion center for cycle #32 trazimera. Her daughter, Hannah, is with her today. Cary stated that she is doing well, that she enjoyed the holidays. She stated that they celebrated her mom's 94th birthday, and all 5 of her mom's daughters were here to celebrate with her (3 are local, 2 came in from [place], [place]). Discussed kids and dogs. All 3 of Cary's daughters have gotten new pets recently, a total of 2 dogs and 1 cat. Hannah shared pictures with me of her 3 beautiful dogs. Hannah shared with me about her 17-day work trip/vacation to the [facility]. Cary stated that she had an office visit with Dr. Richey today, went well. They stated that they have plans to enjoy [place] for dinner this evening. Provided support and encouragement. Notified Cary that I will continue to follow along in her care. She had no needs, questions, or concerns at this time. Encouraged her to call me or the office should that change or should she experience any new or worsening symptoms. She verbalized understanding. Normal [facility] Progress Note Pt arrived for cycle 32 Trazimera. PIV placed. CBC/CMP/CA125 drawn from PIV and sent to [facility]. Pt reports feeling well, no concerns at this time. 1618: Ordered treatment completed. Patient discharged without any issues. Patient has a copy of next infusion appointment and verbalizes understanding. All questions answered. 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 , was diagnosed with a stage III C1 endometrial cancer in June 2020. She was treated with robotic hysterectomy BSO sentinel lymph node sampling followed by chemotherapy with carboplatinum and Taxol and Herceptin in [place]. However the patient developed a severe reaction after the first course. This was in early September. The patient decided not to pursue any further chemotherapy after that point. CT A/P/C 10/15 was NILESH In February 2022 patient presented to the office complaining of a gregoria vaginal discharge. Exam revealed anterior vaginal wall replaced by malignancy. 03/11/22 Biopsy performed in office. Final Diagnosis VAGINA, BIOPSY- VAGINAL MUCOSAL FRAGMENTS WITH INVOLVEMENT BY HIGH GRADE SEROUS CARCINOMA. 03/16/22 PET showed positive for carcinoma Pt receiving Trastuzumab, Carboplatin, Abraxane, last dose 07/29/22 Patient was then started on Herceptin maintenance. PET scan September 2023 showed no evidence of recurrent disease. Underwent recent echo which shows good left ventricular function. She denies any cardiac symptoms related to the Herceptin. Denies any vaginal bleeding, abdominal pain, pelvic pain, adenopathy. Has good performance status and is here today with her daughter. Past Medical History: Diagnosis Date Cancer (CMS/HCC) (HCC) 07/15/2020 Endometrial Hx antineoplastic chemo 04/04/2022 ended july 2022 Osteoarthritis Osteopenia Past Surgical History: Procedure Laterality Date FRACTURE SURGERY Left 1973 ankle HEMORRHOID SURGERY HYSTERECTOMY 06/2020 KNEE SURGERY Right 1969 and 1971 OOPHORECTOMY 06/2020 OTHER SURGICAL HISTORY 07/16/2020 [facility] BSO LND; Dr. Denis Richey SINUS SURGERY 2007 Social History Socioeconomic History Marital status: Single Tobacco Use Smoking status: Never Smokeless tobacco: Never Vaping Use Vaping status: Never Used Substance and Sexual Activity Alcohol use: Not Currently Drug use: Never Sexual activity: Not Currently Partners: Male Social Drivers of Health Financial Resource Strain: Low Risk (01/20/2023) Overall Financial Resource Strain (CARDIA) Difficulty of Paying Living Expenses: Not hard at all Food Insecurity: No Food Insecurity (01/20/2023) Hunger Vital Sign Worried About Running Out of Food in the Last Year: Never true Ran Out of Food in the Last Year: Never true Transportation Needs: No Transportation Needs (01/20/2023) PRAPARE - Transportation Lack of Transportation (Medical): No Lack of Transportation (Non-Medical): No Current Outpatient Medications Medication Sig Dispense Refill Alpha-Lipoic Acid 600 MG capsule Take by mouth. B Qqiwcej-H-Ocqonma (B-COMPLEX/VITAMIN C, W/ CA, PO) Take by mouth. multivitamin with minerals (Cerovite) 18-400 mg-mcg tablet tablet Take 1 tablet by mouth daily. No current facility-administered medications for this visit. Facility-Administered Medications Ordered in Other Visits Medication Dose Route Frequency Provider Last Rate Last Admin sodium chloride 0.9 % infusion 5-250 mL/hr IntraVENous Once PRN Denis Richey MD Review of Systems Gastrointestinal: Negative for abdominal distention and abdominal pain. Genitourinary: Negative for pelvic pain and vaginal bleeding. Hematological: Negative for adenopathy. Paclitaxel and Levofloxacin BP (!) 197/82 Pulse 76 Ht 1.6 m (5' 3) Wt 68 kg (150 lb) BMI 26.57 kg/m? Physical Exam Vitals and nursing note reviewed. Constitutional: Appearance: Normal appearance. Neurological: Mental Status: She is alert. Psychiatric: Mood and Affect: Mood normal. Behavior: Behavior normal. Assessment: Patient recurrent endometrial cancer currently doing well on maintenance Herceptin with no signs or symptoms of recurrent disease. Plan: Continue Herceptin, PET scan is scheduled for next month. Continue Herceptin until disease recurrence or toxicity. Normal [facility] 36on 03-26-2024 36 Spoke to patient and she is aware EF is 57%. Ok to continue tx per Dr. Richey. She agrees with the plan and verbalizes understanding. Normal [facility] 36 ----- Message from Denis Richey MD sent at 03/26/2024 8:56 AM EST ----- Ok to conitnue ----- Message ----- From: Silvana Hamilton RN Sent: 03/26/2024 8:27 AM EST To: Denis Richey MD Last one was 60% ----- Message ----- From: Linda Deluna Sent: 03/26/2024 7:57 AM EST To: Denis Richey MD; # Normal [facility] ONC Echo, Limited Studyon ONC Echo, Limited Study [facility] [address] [place] [address] ONC Echo, Limited Study 03/25/24 0858 MR#: [id number] Acct: [id number] Name: CARY SWENSON Rep #: [id number] : 1950 73 From: Rishi Gonzalez MD Attending Dr: Dr. Denis Richey MD Status: R EG CLI Ordering Dr: Denis Richey MD Date: 03/25/24 Location: [facility] Sex: F C Admitted: Reason For Study: CHEMOTHERAPY Procedure This was a limited 2D transthoracic echocardiogram. Myocardial strain analysis was performed in this exam to aid in the assessment of cardiac function. Exam performed in department. Left Ventricle Normal LV size. Left ventricular systolic function is normal. The estimated ejection fraction is 57 %. No regional wall motion abnormalities noted. Right Ventricle Normal RV size. Normal systolic function. Atria Normal left atrium. Normal right atrium. Mitral Valve There is mild mitral annular calcification. Tricuspid Valve Normal tricuspid valve. Mild tricuspid valve insufficiency. Aortic Valve Trisinus/trileaflet aortic valve. Mild (1+) aortic valve insufficiency. Pulmonic Valve Normal pulmonic valve. Great Vessels Normal aortic root. The pulmonary artery is normal size. Inferior vena cava collapse with respiration. Pericardium/Pleural No pericardial effusion. 7.9 x 7.6 cm cystic structure seen in the liver. MMode/2D Measurements Calculations LVIDd: 4.6 cm IVSd: 1.1 cm LVOT diam: 2.0 cm LVIDs: 2.4 cm LVPWd: 0.87 cm LVOT area: 3.2 cm2 RVDd: 3.1 cm FS: 47.3 % LAV(MOD-bp): 50.4 ml LVAd ap4: 23.6 cm2 LVAd ap2: 23.4 cm2 LAV(MOD-bp) Indexed: 29.5 ml/m2 LVLd ap4: 7.1 cm LVLd ap2: 7.1 cm LAV(MOD-sp2): 58.3 ml EDV(MOD-sp4): 63.4 ml EDV(MOD-sp2): 62.8 ml LAV(MOD-sp4): 39.1 ml EDV(sp4-el): 67.0 ml EDV(sp2-el): 65.2 ml LVAs ap4: 14.4 cm2 LVAs ap2: 13.4 cm2 LVLs ap4: 6.1 cm LVLs ap2: 6.0 cm ESV(MOD-sp4): 29.0 ml ESV(MOD-sp2): 24.6 ml ESV(sp4-el): 28.6 ml ESV(sp2-el): 25.3 ml EF(MOD-sp4): 54.2 % EF(MOD-sp2): 60.7 % EF(sp4-el): 57.3 % SV(MOD-sp4): 34.3 ml SV(MOD-sp2): 38.1 ml SV(sp4-el): 38.4 ml SI(MOD-sp4): 20.1 ml/m2 SI(MOD-sp2): 22.3 ml/m2 Ao sinus diam: 2.[address] Junction: 2.5 cm LA A4 area: 14.4 cm2 LA dimension(2D): 3.3 cm TAPSE: 1.7 cm RA A4 area: 10.7 cm2 Time Measurements MV dec time: 0.18 sec Doppler Measurements Calculations MV E max inder: 68.9 cm/sec Lat Peak E' Inder: 10.0 cm/sec Med Peak E' Inder: 6.1 cm/sec MV A max inder: 79.5 cm/sec E/E' lat: 6.9 E/E' med: 11.3 MV E/A: 0.87 MV dec slope: 382.7 cm/sec2 Ao V2 max: 115.0 cm/sec AI max inder: 398.5 cm/sec Ao max P.3 mmHg AI max P.5 mmHg Ao V2 mean: 75.2 cm/sec AI dec slope: 318.4 cm/sec2 Ao mean P.6 mmHg AI P1/2t: 366.5 msec Ao V2 VTI: 24.5 cm TR max inder: 208.1 cm/sec TR max P.3 mmHg ECHO/ONC Echo, Limited Study Interpretation Summary Normal LV size. Left ventricular systolic function is normal. The estimated ejection fraction is 57 %. Mild (1+) aortic valve insufficiency. The global longitudinal strain is normal. The global longitudinal strain = -19.8 % (normal). ___ Ordering Physician: Denis Richey Referring Physician: Denis Richey Performed By: Bianca Dewey FRANCES 03/25/24 1209 Date Rishi Gonzalez MD CC: Dr. Denis Richey MD Date Dictated: 03/25/24 0858 Date Transcribed: 03/25/241208 Drain Tile Machine Operator: Signed Normal [facility] Progress Noteon 03-22-2024 Progress Note Faxed echocardiogram order to [facility]. Patient has been scheduled for 03/25/24 @ 0930. Patient is aware. [facility] 36on 03-21-2024 36 Needs to have TTE do ne preferably prior to next tx on 03/29. Patient aware. Chart to Linda to schedule. Normal [facility] 36 We have been unable to reach your patient to schedule their testing. Test Name: PET/CT skull base to mid thigh 1st Attempt: Club[employer], LLChart message 2nd Attempt: called and LVM Normal [facility] 36on 03-04-2024 36 Called pt. Let her k now order was faxed to [facility]. Voiced understood. [facility] 36 Spoke to patient and she states she has gout in her great toe. She is going to try to get into a PCP for this. She would like to know if Linda is working on her PET scheduling. Normal [facility] 36on 03-01-2024 36 Called pt. Left VM w ith normal CA 125 results. Normal [facility] CA 125on 03-01-2024 Cancer Ag 125 Qn 14.2 [arb'U]/mL 0.0 - 35 .0 U/mL [facility] Interpretation and review of laboratory results Normal [facility] Testing performed on the [employer] using a two-step chemiluminescent microparticle immunoassay method. Results obtained by different methods should not be used interchangeably. A 10.75% increase in assay value is considered as a significant change. Results obtained by different methods should not be used interchangeably. The CA 125 result is based on a new assay and the results may not be comparable with assays run prior to 12/13/2022. [facility] CA 125 14.2 U/mL Normal 0.0-35.0 [facility] Comment on above: Result Comment: MAHENDRA Escamilla COMMENTS: Testing performed on the [employer] using a two-step chemiluminescent microparticle immunoassay method. Results obtained by different methods should not be used interchangeably. A 10.75% increase in assay value is considered as a significant change. Results obtained by different methods should not be used interchangeably. The CA 125 result is based on a new assay and the results may not be comparable with assays run prior to 12/13/2022. Performed By: #### L [id number], [id number] ####Transition Of Care Specialist: DAVON OJEDA ([phone])[facility] ([facility])[address] [place] [address] CBC W Auto Differential pane l (Bld)on 03-01-2024 Basophils (Bld) [#/Vol] 0 10*3/uL 0.0 - 0.2 10*3/uL [facility] Basophils/100 WBC (Bld) 0.5 % 0.0 - 2.0 % [facility] Eosinophils (Bld) [#/Vol] 0.1 10*3/uL 0.0 - 0.5 10*3/uL [facility] Eosinophils/100 WBC (Bld) 1.9 % 0.0 - 6.0 % [facility] Erythrocyte distribution width (RBC) [Ratio] 12.3 % 11.5 - 15.0 % [facility] Hematocrit (Bld) [Volume fraction] 34.7 % Low 35.0 - 47.0 % [facility] Hemoglobin (Bld) [Mass/Vol] 11.4 g/dL Low 11.7 - 16.0 g/dL [facility] Immature granulocytes (Bld) [#/Vol] 0 10*3/uL NINF - 0.1 10*3/uL [facility] Immature granulocytes/100 WBC (Bld) 0.2 % 0.0 - 2.0 % [facility] Interpretation and review of laboratory results Abnormal [facility] Lymphocytes (Bld) [#/Vol] 1.2 10*3/uL 1.0 - 4.3 10*3/uL [facility] Lymphocytes/100 WBC (Bld) 30.1 % 15.0 - 45.0 % [facility] MCH (RBC) [Entitic mass] 32.5 pg 26. 0 - 34.0 pg [facility] MCHC (RBC) [Mass/Vol] 32.9 % 30.5 - 36.0 % [facility] MCV (RBC) [Entitic vol] 98.9 fL 77.0 - 99.0 fL [facility] Monocytes (Bld) [#/Vol] 0.3 10*3/uL 0.0 - 0.9 10*3/uL [facility] Monocytes/100 WBC (Bld) 6.8 % 5.0 - 13.0 % [facility] Neutrophils (Bld) [#/Vol] 2.5 10*3/uL 1.8 - 7.5 10*3/uL [facility] Neutrophils/100 WBC (Bld) 60.5 % 38.0 - 82.0 % [facility] Nucleated RBC/100 WBC (Bld) [Ratio] 0 % [facility] Platelet mean volume (Bld) [Entitic vol] 10.6 fL 9.0 - 12.7 fL [facility] Platelets (Bld) [#/Vol] 203 10*3/uL 140 - 440 10*3/uL [facility] RBC (Bld) [#/Vol] 3.51 10*6/uL Low 3.80 - 5.20 10*6/uL [facility] WBC (Bld) [#/Vol] 4.1 10*3/uL 3.6 - 10.7 10*3/uL [facility] CBC WITH AUTO DIFFERENTIALon 03-01-2024 Basophils (Bld) [#/Vol] 0.0 10*3/uL Normal 0.0-0.2 [facility] Comment on above: Performed By: #### L [id number] ####Transition Of Care Specialist: DAVON OJEDA ([phone])[facility] (SBAB)[address] [place] [address] Basophils/100 WBC (Bld) 0.5 % Normal 0.0-2.0 [facility] Comment on above: Performed By: #### L [id number] ####Transition Of Care Specialist: DAVON OJEDA ([phone])[facility] (SBAB)[address] [place] [address] Eosinophils (Bld) [#/Vol] 0.1 10*3/uL Normal 0.0-0.5 [facility] Comment on above: Performed By: #### L [id number] ####Transition Of Care Specialist: DAVON OJEDA ([phone])[facility] (SBHLAB)[address] [place] [address] Eosinophils/100 WBC (Bld) 1.9 % Normal 0.0-6.0 [facility] Comment on above: Performed By: #### L [id number] ####Transition Of Care Specialist: DAVON OJEDA ([phone])[facility] (SBAB)[address] [place] [address] Erythrocyte distribution width (RBC) [Ratio] 12.3 % Normal 11.5-15.0 [facility] Comment on above: Performed By: #### L [id number] ####Transition Of Care Specialist: DAVON COLORADOAbrilJERRY ([phone])[facility] [place] (SBHLAB)[address] Hematocrit (Bld) [Volume fraction] 34.7 % Low 35.0-47.0 [facility] Comment on above: Performed By: #### L [id number] ####Transition Of Care Specialist: DAVON COLORADOMANE ([phone])[facility] [place] (SBHLAB)[address] Hemoglobin (Bld) [Mass/Vol] 11.4 g/dL Low 11.7-16.0 [facility] Comment on above: Performed By: #### L [id number] ####Transition Of Care Specialist: DAVON RUSTY ([phone])[facility] [place] (SBHLAB)[address] IMMATURE GRANS % 0.2 % Normal 0.0-2.0 [facility] Comment on above: Performed By: #### L [id number] ####Transition Of Care Specialist: DAVON PEREZJERRY ([phone])[facility] ([facility])[address] IMMATURE GRANS ABSOLUTE 0.0 10*3/uL Normal <0.1 [facility] Comment on above: Performed By: #### L [id number] ####Transition Of Care Specialist: DAVON PEREZJERRY ([phone])[facility] [place] (SBHLAB)[address] [place] [address] Lymphocytes (Bld) [#/Vol] 1.2 10*3/uL Normal 1.0-4.3 [facility] Comment on above: Performed By: #### L [id number] ####Transition Of Care Specialist: DAVON PEREZJERRY ([phone])[facility] [place] (SBHLAB)[address] Lymphocytes/100 WBC (Bld) 30.1 % Normal 15.0-45.0 [facility] Comment on above: Performed By: #### L [id number] ####Transition Of Care Specialist: DAVON OJEDA ([phone])[facility] [place] (SBHLAB)[address] MCH (RBC) [Entitic mass] 32.5 pg Normal 26.0-34.0 [facility] Comment on above: Performed By: #### L [id number] ####Transition Of Care Specialist: DAVON OJEDA ([phone])[facility] [place] (SBHLAB)[address] MCHC 32.9 % Normal 30.5-36.0 [facility] Comment on above: Performed By: #### L [id number] ####Transition Of Care Specialist: DAVON OJEDA ([phone])[facility] [place] (SBHLAB)[address] [place] [address] MCV (RBC) [Entitic vol] 98.9 fL Normal 77.0-99.0 S [facility] Comment on above: Performed By: #### L [id number] ####Transition Of Care Specialist: DAVON OJEDA ([phone])[facility] [place] (SBHLAB)[address] [place] [address] Monocytes (Bld) [#/Vol] 0.3 10*3/uL Normal 0.0-0.9 [facility] Comment on above: Performed By: #### L [id number] ####Transition Of Care Specialist: DAVON OJEDA ([phone])[facility] [place] (SBHLAB)[address] [place] [address] Monocytes/100 WBC (Bld) 6.8 % Normal 5.0-13.0 S [facility] Comment on above: Performed By: #### L [id number] ####Transition Of Care Specialist: DAVON OJEDA ([phone])[facility] (SBHLAB)[address] [place] [address] NEUTROPHILS ABSOLUTE 2.5 10*3/uL Normal 1.8-7.5 [facility] Comment on above: Performed By: #### L [id number] ####Transition Of Care Specialist: DAVON OJEDA ([phone])[facility] [place] (SBHLAB)[address] Neutrophils/100 WBC (Bld) 60.5 % Normal 38.0-82.0 [facility] Comment on above: Performed By: #### L [id number] ####Transition Of Care Specialist: DAVON OJEDA ([phone])[facility] [place] (SBHLAB)[address] NRBC 0.0 /100 WBCs Normal 0.0-2.0 [facility] Comment on above: Performed By: #### L [id number] ####Transition Of Care Specialist: DAVON OJEDA ([phone])[facility] (SBHLAB)[address] Platelet mean volume (Bld) [Entitic vol] 10.6 fL Normal 9.0-12.7 [facility] Comment on above: Performed By: #### L [id number] ####Transition Of Care Specialist: DAVON OJEDA ([phone])[facility] (SB[facility])[address] [place] [address] [place] Platelets (Bld) [#/Vol] 203 10*3/uL Normal 140-440 [facility] Comment on above: Performed By: #### L [id number] ####Transition Of Care Specialist: DAVON OJEDA ([phone])[facility] [place] (SBHLAB)[address] [place] [address] [place] RBC (Bld) [#/Vol] 3.51 10*6/uL Low 3.80-5.20 [facility] Comment on above: Performed By: #### L [id number] ####Transition Of Care Specialist: DAVON OJEDA ([phone])[facility] [place] (SBHLAB)[address] [place] [address] [place] WBC (Bld) [#/Vol] 4.1 10*3/uL Normal 3.6-10.7 [facility] Comment on above: Performed By: #### L [id number] ####Transition Of Care Specialist: DAVON OJEDA ([phone])[facility]ENTERDidier [facility] (SBHLAB)[address] COMPREHENSIVE METABOLIC PANE Juan 03-01-2024 Albumin [Mass/Vol] 3.9 g/dL Normal 3.4-4.8 [facility] Comment on above: Performed By: #### L AB17, [id number] ####Transition Of Care Specialist: DAVON OJEDA ([phone])[facility] (SBHLAB)[address] ALP [Catalytic activity/Vol] 90 U/L Normal 40-150 [facility] Comment on above: Performed By: #### L AB17, [id number] ####Transition Of Care Specialist: DAVON OJEDA ([phone])[facility] (SBHLAB)[address] ALT [Catalytic activity/Vol] 24 U/L Normal <30 [facility] Comment on above: Performed By: #### L AB17, [id number] ####Transition Of Care Specialist: DAVON OJEDA ([phone])[facility] (SBHLAB)[address] Anion gap [Moles/Vol] 7 mmol/L Normal 3-13 [facility] Comment on above: Performed By: #### L AB17, [id number] ####Transition Of Care Specialist: DAVON OJEDA ([phone])[facility] (SB[facility])[address] AST [Catalytic activity/Vol] 31 U/L Normal <34 [facility] Comment on above: Performed By: #### L AB17, [id number] ####Transition Of Care Specialist: DAVON OJDEA ([phone])[facility] (SBHLAB)[address] Bilirubin [Mass/Vol] 0.3 mg/dL Normal <1.2 [facility] Comment on above: Performed By: #### L AB17, [id number] ####Transition Of Care Specialist: DAVON OJEDA ([phone])[facility] (SBHLAB)[address] Calcium [Mass/Vol] 8.9 mg/dL Normal 8.8-10.0 [facility] Comment on above: Performed By: #### L AB17, [id number] ####Transition Of Care Specialist: DAVON OJEDA ([phone])[facility] [place] (SBHL[facility])[address] Chloride [Moles/Vol] 102 mmol/L Normal 98-107 [facility] Comment on above: Performed By: #### L AB17, [id number] ####Transition Of Care Specialist: DAVON OJEDA ([phone])[facility] (SBHL[facility])[address] CO2 [Moles/Vol] 29 mmol/L Normal 23-31 [facility] Comment on above: Performed By: #### L AB17, [id number] ####Transition Of Care Specialist: DAVON OJEDA ([phone])[facility] (SB[facility])[address] Creatinine [Mass/Vol] 1.14 mg/dL High 0.57-1.11 [facility] Comment on above: Performed By: #### L AB17, [id number] ####Transition Of Care Specialist: DAVON OJEDA ([phone])[facility] (SBHLAB)[address] GLOMERULAR FILTRATION RATE ML/MIN/1.73 SQ M.PREDICTED 51.6 mL/min/1.73m*2 Low >60.0 [facility] Comment on above: Result Comment: Calc ulation based on the Chronic Kidney Disease Epidemiology Collaboration (CKD-EPI) equation refit without adjustment for race Performed By: #### L AB17, [id number] ####Transition Of Care Specialist: DAVON OJEDA ([phone])[facility] (SBHLAB)[address] Glucose [Mass/Vol] 96 mg/dL Normal 82-115 [facility] Comment on above: Performed By: #### L AB17, [id number] ####Transition Of Care Specialist: DAVON OJEDA ([phone])[facility] (SBHLAB)[address] Potassium [Moles/Vol] 4.0 mmol/L Normal 3.5-5.1 [facility] Comment on above: Result Comment: [facility] potassium values may be up to 0.5 mmol/L lower than serum values. Performed By: #### L AB17, [id number] ####Transition Of Care Specialist: DAVON OJEDA ([phone])[facility] (SBHLAB)[address] Protein [Mass/Vol] 7.1 g/dL Normal 6.4-8.3 [facility] Comment on above: Performed By: #### L AB17, [id number] ####Transition Of Care Specialist: DAVON OJEDA ([phone])[facility]ENTERDid[facility] (SBHLAB)[address] Sodium [Moles/Vol] 138 mmol/L Normal 136-145 [facility] Comment on above: Performed By: #### L AB17, [id number] ####Transition Of Care Specialist: DAVON OJEDA ([phone])[facility] (SBHLAB)[address] Urea nitrogen [Mass/Vol] 22 mg/dL Normal 9-23 [facility] Comment on above: Performed By: #### L AB17, [id number] ####Transition Of Care Specialist: DAVON OJEDA ([phone])[facility] (SBHLAB)[address] Comprehensive metabolic 1998 panelon 03-01-2024 Albumin [Mass/Vol] 3.9 g/dL 3.4 - 4.8 g/dL [facility] ALP [Catalytic activity/Vol] 90 U/L 40 - 150 U/L [facility] ALT [Catalytic activity/Vol] 24 U/L NINF - 30 U/L [facility] Anion gap [Moles/Vol] 7 mmol/L 3 - 13 mmol/L [facility] AST [Catalytic activity/Vol] 31 U/L NINF - 34 U/L [facility] Bilirubin [Mass/Vol] 0.3 mg/dL NINF - 1.2 mg/dL [facility] Calcium [Mass/Vol] 8.9 mg/dL 8.8 - 10. 0 mg/dL [facility] Chloride [Moles/Vol] 102 mmol/L 98 - 10 7 mmol/L [facility] CO2 [Moles/Vol] 29 mmol/L 23 - 31 mmol/L [facility] Creatinine [Mass/Vol] 1.14 mg/dL High 0.57 - 1.11 mg/dL [facility] GFR/1.73 sq M.predicted (S/P/Bld) [Vol rate/Area] 51.6 mL/min Low - PINF [facility] Comment on above: Calculation based on the Chronic Kidney Disease Epidemiology Collaboration (CKD-EPI) equation refit without adjustment for race Glucose [Mass/Vol] 96 mg/dL 82 - 115 mg/dL [facility] Interpretation and review of laboratory results Abnormal [facility] Potassium [Moles/Vol] 4 mmol/L 3.5 - 5.1 mmol/L [facility] Comment on above: Plasma potassium kimberli ues may be up to 0.5 mmol/L lower than serum values. Protein [Mass/Vol] 7.1 g/dL 6.4 - 8.3 g/dL [facility] Sodium [Moles/Vol] 138 mmol/L 136 - 145 mmol/L [facility] Urea nitrogen [Mass/Vol] 22 mg/dL 9 - 23 mg/dL [facility] Progress Noteon 03-01-2024 Progress Note 1425: Patient here f or Trazimera Treatment. PIV placed in L. AC. With specimen collected and sent to lab. Labs not needed to proceed with Trazimera maintenance. 1517: Ordered treatment completed. Patient discharged without any issues. Patient has a copy of next infusion appointment and verbalizes understanding. All questions answered. Normal [facility] 36on 02-25-2024 36 We have been unable to reach your patient to schedule their testing. Test Name: Echo 1st Attempt: 01/04/2024 2nd Attempt: 02/25/2024 Normal [facility] 36on 02-07-2024 36 Spoke with pt and sh e had fell helping son move. Scrapped side of leg on cement step. Pt states today it is red, swollen and has odor. Pt dermatology had seen it previously with it looking fine. Pt is going to call dermatology back or go to urgent care to have wound assessed. Pt does not have PCP. Pt verbalized understanding. Normal [facility] 36on 02-05-2024 36 ----- Message from Marianela Bear sent at 02/05/2024 2:19 PM EST ----- Not able to put in orders. Can you please do for me so I can fax both orders to [place]. Thank you! ----- Message ----- From: Denis Richey MD Sent: 02/02/2024 2:00 PM EST To: Linda Deluna Patient needs PET scan for March. Also, I tried to put it a order for a screening mammogram but I kept getting blocked. Can you help me order a screening mammogram through [employer] ([employer]), the patient plans to do her mammogram this year in [place]? Normal [facility] CA 125on 02-05-2024 Cancer Ag 125 Qn 13.2 [arb'U]/mL 0.0 - 35 .0 U/mL [facility] [place] Interpretation and review of laboratory results Normal [facility] [place] Results obtained by different methods should not be used interchangeably. The CA 125 result is based on a new assay and the results may not be comparable with assays run prior to 12/13/2022. [facility] CA 125on 02-02-2024 CA 125 13.2 U/mL Normal 0.0-35.0 [facility] Comment on above: Result Comment: MAHENDRA Escamilla COMMENTS: Results obtained by different methods should not be used interchangeably. The CA 125 result is based on a new assay and the results may not be comparable with assays run prior to 12/13/2022. Performed By: #### L [id number] ####Transition Of Care Specialist: YVONNE BRAY ([id number])[facility] ([address] CBC W Auto Differential savage sanchez (Bld)on 02-02-2024 Basophils (Bld) [#/Vol] 0 10*3/uL 0.0 - 0.2 10*3/uL [facility] [place] Basophils/100 WBC (Bld) 0.4 % 0.0 - 2.0 % [facility] [place] Eosinophils (Bld) [#/Vol] 0 10*3/uL 0.0 - 0.5 10*3/uL [facility] Eosinophils/100 WBC (Bld) 0.6 % 0.0 - 6.0 % [facility] [place] Erythrocyte distribution width (RBC) [Ratio] 12.5 % 11.5 - 15.0 % [facility] [place] Hematocrit (Bld) [Volume fraction] 32.8 % Low 35.0 - 47.0 % [facility] [place] Hemoglobin (Bld) [Mass/Vol] 11.1 g/dL Low 11.7 - 16.0 g/dL [facility] [place] Immature granulocytes (Bld) [#/Vol] 0 10*3/uL NINF - 0.1 10*3/uL [facility] [place] Immature granulocytes/100 WBC (Bld) 0.2 % 0.0 - 2.0 % [facility] [place] Interpretation and review of laboratory results Abnormal [facility] [place] Lymphocytes (Bld) [#/Vol] 1.5 10*3/uL 1.0 - 4.3 10*3/uL [facility] Lymphocytes/100 WBC (Bld) 30.7 % 15.0 - 45.0 % [facility] [place] MCH (RBC) [Entitic mass] 32.6 pg 26. 0 - 34.0 pg [facility] [place] MCHC (RBC) [Mass/Vol] 33.8 % 30.5 - 36.0 % [facility] [place] MCV (RBC) [Entitic vol] 96.5 fL 77.0 - 99.0 fL [facility] [place] Monocytes (Bld) [#/Vol] 0.4 10*3/uL 0.0 - 0.9 10*3/uL [facility] Monocytes/100 WBC (Bld) 7.6 % 5.0 - 13.0 % [facility] [place] Neutrophils (Bld) [#/Vol] 3 10*3/uL 1.8 - 7.5 10*3/uL [facility] Neutrophils/100 WBC (Bld) 60.5 % 38.0 - 82.0 % [facility] [place] Nucleated RBC/100 WBC (Bld) [Ratio] 0 % [facility] [place] Platelet mean volume (Bld) [Entitic vol] 10.4 fL 9.0 - 12.7 fL [facility] [place] Platelets (Bld) [#/Vol] 217 10*3/uL 140 - 440 10*3/uL [facility] [place] RBC (Bld) [#/Vol] 3.4 10*6/uL Low 3.80 - 5.20 10*6/uL [facility] [place] WBC (Bld) [#/Vol] 4.9 10*3/uL 3.6 - 10.7 10*3/uL [facility] CBC WITH AUTO DIFFERENTIALon 02-02-2024 Basophils (Bld) [#/Vol] 0.0 10*3/uL Normal 0.0-0.2 [facility] Comment on above: Performed By: #### L [id number] ####Transition Of Care Specialist: YVONNE BRAY ([phone])[facility])[address] [place] [address] Basophils/100 WBC (Bld) 0.4 % Normal 0.0-2.0 [facility] Comment on above: Performed By: #### L [id number] ####Transition Of Care Specialist: YVONNE BRAY ([phone])[facility])[address] [place] [address] Eosinophils (Bld) [#/Vol] 0.0 10*3/uL Normal 0.0-0.5 [facility] Comment on above: Performed By: #### L [id number] ####Transition Of Care Specialist: YVONNE BRAY ([phone])[facility])[address] [place] [address] Eosinophils/100 WBC (Bld) 0.6 % Normal 0.0-6.0 [facility] Comment on above: Performed By: #### L [id number] ####Transition Of Care Specialist: YVONNE BRAY ([phone])[facility])[address] [place] [address] Erythrocyte distribution width (RBC) [Ratio] 12.5 % Normal 11.5-15.0 [facility] Comment on above: Performed By: #### L [id number] ####Transition Of Care Specialist: YVONNE BRAY ([phone])[facility])[address] [place] [address] Hematocrit (Bld) [Volume fraction] 32.8 % Low 35.0-47.0 [facility] Comment on above: Performed By: #### L [id number] ####Transition Of Care Specialist: YVONNE BRAY ([phone])[address] Hemoglobin (Bld) [Mass/Vol] 11.1 g/dL Low 11.7-16.0 [facility] [place] [facility] Comment on above: Performed By: #### L [id number] ####Transition Of Care Specialist: YVONNE BRAY ([phone])[address] IMMATURE GRANS % 0.2 % Normal 0.0-2.0 [facility] Comment on above: Performed By: #### L [id number] ####Transition Of Care Specialist: YVONNE BRAY ([id number])[address] IMMATURE GRANS ABSOLUTE 0.0 10*3/uL Normal <0.1 [facility] Comment on above: Performed By: #### L [id number] ####Transition Of Care Specialist: YVONNE BRAY ([phone])[facility])[address] [place] [address] Lymphocytes (Bld) [#/Vol] 1.5 10*3/uL Normal 1.0-4.3 [facility] Comment on above: Performed By: #### L [id number] ####Transition Of Care Specialist: YVONNE BRAY ([id number])[address] Lymphocytes/100 WBC (Bld) 30.7 % Normal 15.0-45.0 [facility] Comment on above: Performed By: #### L [id number] ####Transition Of Care Specialist: YVONNE [phone])[facility] ([facility])[address] [place] [address] MCH (RBC) [Entitic mass] 32.6 pg Normal 26.0-34.0 [facility] Comment on above: Performed By: #### L [id number] ####Transition Of Care Specialist: YVONNE BRAY ([phone])[facility])[address] [place] [address] MCHC 33.8 % Normal 30.5-36.0 [facility] Comment on above: Performed By: #### L [id number] ####Transition Of Care Specialist: YVONNE BRAY ([id number])[facility] ([facility])[address] [place] [address] MCV (RBC) [Entitic vol] 96.5 fL Normal 77.0-99.0 [facility] Comment on above: Performed By: #### L [id number] ####Transition Of Care Specialist: YVONNE BRAY ([phone])[facility] ([facility])[address] [place] [address] Monocytes (Bld) [#/Vol] 0.4 10*3/uL Normal 0.0-0.9 [facility] Comment on above: Performed By: #### L [id number] ####Transition Of Care Specialist: YVONNE BRAY ([phone])[facility] ([facility])[address] [place] [address] Monocytes/100 WBC (Bld) 7.6 % Normal 5.0-13.0 [facility] Comment on above: Performed By: #### L [id number] ####Transition Of Care Specialist: YVONNE BRAY ([phone])[facility])[address] [place] [address] NEUTROPHILS ABSOLUTE 3.0 10*3/uL Normal 1.8-7.5 [facility] Comment on above: Performed By: #### L [id number] ####Transition Of Care Specialist: YVONNE BRAY ([phone])[facility] ([facility])[address] [place] [address] Neutrophils/100 WBC (Bld) 60.5 % Normal 38.0-82.0 [facility] Comment on above: Performed By: #### L [id number] ####Transition Of Care Specialist: YVONNE BRAY ([phone])[facility])[address] [place] [address] NRBC 0.0 /100 WBCs Normal 0.0-2.0 [facility] Comment on above: Performed By: #### L [id number] ####Transition Of Care Specialist: YVONNE BRAY ([phone])[facility])[address] [place] [address] Platelet mean volume (Bld) [Entitic vol] 10.4 fL Normal 9.0-12.7 [facility] Comment on above: Performed By: #### L [id number] ####Transition Of Care Specialist: YVONNE BRAY ([id number])[facility])[address] [place] [address] Platelets (Bld) [#/Vol] 217 10*3/uL Normal 140-440 [facility] Comment on above: Performed By: #### L [id number] ####Transition Of Care Specialist: YVONNE BRAY ([phone])[facility])[address] [place] [address] RBC (Bld) [#/Vol] 3.40 10*6/uL Low 3.80-5.20 [facility] Comment on above: Performed By: #### L [id number] ####Transition Of Care Specialist: YVONNE BRAY ([phone])[facility])[address] [place] [address] WBC (Bld) [#/Vol] 4.9 10*3/uL Normal 3.6-10.7 [facility] Comment on above: Performed By: #### L [id number] ####Transition Of Care Specialist: YVONNE BRAY ([phone])[facility])[address] [place] [address] COMPREHENSIVE METABOLIC PANE Juan 02-02-2024 Albumin [Mass/Vol] 4.5 g/dL Normal 3.5-5.0 [facility] Comment on above: Performed By: #### L [id number] ####Transition Of Care Specialist: YVONNE BRAY ([phone])[facility] ([facility])[address] [place] [address] ALP [Catalytic activity/Vol] 91 U/L Normal 38-126 [facility] Comment on above: Performed By: #### L [id number] ####Transition Of Care Specialist: YVONNE BRAY ([phone])[facility] ([facility])[address] [place] [address] ALT [Catalytic activity/Vol] 20 U/L Normal 0-34 [facility] Comment on above: Performed By: #### L [id number] ####Transition Of Care Specialist: YVONNE BRAY ([phone])[facility] ([facility])[address] [place] [address] Anion gap [Moles/Vol] 9 mmol/L Normal 3-13 [facility] Comment on above: Performed By: #### L [id number] ####Transition Of Care Specialist: YVONNE BRAY ([phone])[facility] ([facility])[address] [place] [address] AST [Catalytic activity/Vol] 36 U/L Normal 15-46 [facility] Comment on above: Performed By: #### L [id number] ####Transition Of Care Specialist: YVONNE BRAY ([phone])[facility] ([facility])[address] [place] [address] Bilirubin [Mass/Vol] 0.5 mg/dL Normal 0.2-1.3 [facility] Comment on above: Performed By: #### L [id number] ####Transition Of Care Specialist: YVONNE BRAY ([phone])[facility] ([facility])[address] [place] [address] Calcium [Mass/Vol] 9.2 mg/dL Normal 8.4-10.4 [facility] Comment on above: Performed By: #### L [id number] ####Transition Of Care Specialist: YVONNE BRAY ([phone])[facility] ([facility])[address] [place] [address] [place] Chloride [Moles/Vol] 104 mmol/L Normal 98-107 [facility] Comment on above: Performed By: #### L [id number] ####Transition Of Care Specialist: YVONNE BRAY ([phone])[facility])[address] [place] [address] CO2 [Moles/Vol] 25 mmol/L Normal 22-30 [facility] Comment on above: Performed By: #### L [id number] ####Transition Of Care Specialist: YVONNE BRAY ([phone])[facility])[address] [place] [address] Creatinine [Mass/Vol] 0.76 mg/dL Normal 0.52-1.04 [facility] Comment on above: Performed By: #### L [id number] ####Transition Of Care Specialist: YVONNE BRAY ([phone])[facility])[address] [place] [address] GLOMERULAR FILTRATION RATE ML/MIN/1.73 SQ M.PREDICTED 83.9 mL/min/1.73m*2 Normal >60.0 [facility] Comment on above: Result Comment: Calc ulation based on the Chronic Kidney Disease Epidemiology Collaboration (CKD-EPI) equation refit without adjustment for race Performed By: #### L [id number] ####Transition Of Care Specialist: YVONNE BRAY ([id number])[facility] ([facility])[address] [place] [address] Glucose [Mass/Vol] 87 mg/dL Normal 70-100 [facility] Comment on above: Performed By: #### L [id number] ####Transition Of Care Specialist: YVONNE BRAY ([phone])[facility] ([facility])[address] [place] [address] [place] Potassium [Moles/Vol] 4.0 mmol/L Normal 3.5-5.1 [facility] Comment on above: Performed By: #### L [id number] ####Transition Of Care Specialist: YVONNE [phone])[facility])[address] [place] [address] Protein [Mass/Vol] 7.6 g/dL Normal 6.3-8.2 [facility] Comment on above: Performed By: #### L [id number] ####Transition Of Care Specialist: YVONNE BRAY ([phone])[address] Sodium [Moles/Vol] 139 mmol/L Normal 135-145 [facility] Comment on above: Performed By: #### L [id number] ####Transition Of Care Specialist: YVONNE BRAY ([phone])[facility] ([facility])[address] [place] [address] Urea nitrogen [Mass/Vol] 16 mg/dL Normal 7-17 [facility] Comment on above: Performed By: #### L [id number] ####Transition Of Care Specialist: YVONNE BRAY ([phone])[facility])[address] [place] [address] Comprehensive metabolic 1998 panelon 02-02-2024 Albumin [Mass/Vol] 4.5 g/dL 3.5 - 5.0 g/dL [facility] ALP [Catalytic activity/Vol] 91 U/L 38 - 126 U/L [facility] [place] ALT [Catalytic activity/Vol] 20 U/L 0 - 34 U/L [facility] [place] Anion gap [Moles/Vol] 9 mmol/L 3 - 13 mmol/L [facility] [place] AST [Catalytic activity/Vol] 36 U/L 15 - 46 U/L [facility] [place] Bilirubin [Mass/Vol] 0.5 mg/dL 0.2 - 1 .3 mg/dL [facility] [place] Calcium [Mass/Vol] 9.2 mg/dL 8.4 - 10. 4 mg/dL [facility] [place] Chloride [Moles/Vol] 104 mmol/L 98 - 10 7 mmol/L [facility] CO2 [Moles/Vol] 25 mmol/L 22 - 30 mmol/L [facility] [place] Creatinine [Mass/Vol] 0.76 mg/dL 0.52 - 1.04 mg/dL [facility] [place] GFR/1.73 sq M.predicted (S/P/Bld) [Vol rate/Area] 83.9 mL/min - PINF [facility] Comment on above: Calculation based on the Chronic Kidney Disease Epidemiology Collaboration (CKD-EPI) equation refit without adjustment for race Glucose [Mass/Vol] 87 mg/dL 70 - 100 mg/dL [facility] [place] Interpretation and review of laboratory results Normal [facility] [place] Potassium [Moles/Vol] 4 mmol/L 3.5 - 5.1 mmol/L [facility] [place] Protein [Mass/Vol] 7.6 g/dL 6.3 - 8.2 g/dL [facility] [place] Sodium [Moles/Vol] 139 mmol/L 135 - 145 mmol/L [facility] [place] Urea nitrogen [Mass/Vol] 16 mg/dL 7 - 17 mg/dL [facility] Office Visiton 02-02-2024 Follow-up visit [id number] Cary Swenson Jr 1950 F Date Provider Department Center 02/02/2024 [facility] 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 None Family History Problem Relation Age of Onset High Blood Pressure Mother Arthritis Mother Skin cancer Mother 60 Autoimmune disease Mother Hearing loss Mother Hypertension Mother Lung cancer Father 66 Thyroid disease Sister Depression Sister High Blood Pressure Sister Skin cancer Sister 60 Autoimmune disease Sister Hypertension Sister Hearing loss Daughter Suicide Attempts Son Osteoporosis Maternal Grandmother Uterine cancer Paternal Grandmother 62 Lung cancer Paternal Grandfather 56 Lung cancer Mother's Sister 75 Breast cancer Cousin 60 Comments: on dads side Breast cancer Cousin 60 Comments: on dads side Family Status - Relation Status Age at Mother Alive Father Sister Sister Daughter Son Maternal Grandmother Paternal Grandmother Paternal Grandfather Mother's Sister Cousin Alive Cousin Alive Level of Service:63299 [place] OFFICE/OUTPATIENT ESTABLISHED LOW MDM 20 MIN Reason for Visit and Comments: Endometrial Cancer [562] Chemotherapy [305] Normal [facility] Progress Noteon 02-02-2024 Progress Note Visited with Cary buckner 2:40pm in the infusion center for cycle #30 trazimera. Her sister, Penny, is with her today. Cary stated that she has been doing well. She stated that this treatment was delayed, as she had to have her ejection fraction re-checked. Thankfully, it normalized, and she was able to continue with her treatments. She stated that she had an office visit with Dr. Richey today, went well. They were happy to report that she completed many metro walks, that if you complete 11/05 metro walks from a list of specific baker, you receive a walking stick, and Cary received a walking stick! She stated that this was a very enjoyable experience. She shared that they have plans to celebrate Thanksgiving and 4 birthdays all on the same day, 02/24. Wished them a Happy Thanksgi, Sandrita Tians, and Happy New Year, as I will likely not see them again until March, [place] Provided support and encouragement. Notified her that I will continue to follow along in her care. She had no needs, questions, or concerns at this time. Encouraged her to call me or the office should that change or should she experience any new or worsening symptoms. She verbalized understanding. [facility] Progress Note Patient arrived ambulatory for C30D1 Trazimera infusion. Patient has no new or worsening symptoms today. Peripheral IV placed in R AC by Apryl TOTH. CBC/CMP/Ca125 studies collected from site and sent to [facility]. POC reviewed and patient verbalized understanding. Patient has no further questions at this time. 1440: Patient tolerated infusion with no noted complications. Peripheral IV removed intact and site benign. Patient verbalized understanding of discharge plan and follow-up care. Patient discharged home ambulatory. 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 she was diagnosed with a stage III C1 endometrial cancer in June 2020. She was treated with robotic hysterectomy BSO sentinel lymph node sampling followed by chemotherapy with carboplatinum and Taxol and Herceptin in [place]. However the patient developed a severe reaction after the first course. This was in early September. The patient decided not to pursue any further chemotherapy after that point. CT A/P/C 10/15 was NILESH In February 2022 patient presented to the office complaining of a gregoria vaginal discharge. Exam revealed anterior vaginal wall replaced by malignancy. 03/11/22 Biopsy performed in office. Final Diagnosis VAGINA, BIOPSY- VAGINAL MUCOSAL FRAGMENTS WITH INVOLVEMENT BY HIGH GRADE SEROUS CARCINOMA. 03/16/22 PET showed positive for carcinoma Pt cannot tolerate Taxol due to reaction-painful rash, tried steroids and Benadryl with no relief. Pt receiving Trastuzumab, Carboplatin, Abraxane, last dose 07/29/22 Patient was then started on Herceptin maintenance. PET scan September 2023 showed no evidence of recurrent disease. Patient denies any signs or symptoms of recurrent disease. Denies any cardiac symptoms. Is here today for Herceptin. Past Medical History: Diagnosis Date Cancer (CMS/HCC) (HCC) 07/15/2020 Endometrial Hx antineoplastic chemo 04/04/2022 ended july 2022 Osteoarthritis Osteopenia Past Surgical History: Procedure Laterality Date FRACTURE SURGERY Left 1973 ankle HEMORRHOID SURGERY HYSTERECTOMY 06/2020 KNEE SURGERY Right 1969 and 1971 OOPHORECTOMY 06/2020 OTHER SURGICAL HISTORY 07/16/2020 [facility] BSO LND; Dr. Denis Richey SINUS SURGERY 2006 Social History Socioeconomic History Marital status: Single Tobacco Use Smoking status: Never Smokeless tobacco: Never Vaping Use Vaping status: Never Used Substance and Sexual Activity Alcohol use: Not Currently Drug use: Never Sexual activity: Not Currently Partners: Male Social Drivers of Health Financial Resource Strain: Low Risk (01/20/2023) Overall Financial Resource Strain (CARDIA) Difficulty of Paying Living Expenses: Not hard at all Food Insecurity: No Food Insecurity (01/20/2023) Hunger Vital Sign Worried About Running Out of Food in the Last Year: Never true Ran Out of Food in the Last Year: Never true Transportation Needs: No Transportation Needs (01/20/2023) PRAPARE - Transportation Lack of Transportation (Medical): No Lack of Transportation (Non-Medical): No Current Outpatient Medications Medication Sig Dispense Refill Alpha-Lipoic Acid 600 MG capsule Take by mouth. B Pnmiiua-U-Tifxojo (B-COMPLEX/VITAMIN C, W/ CA, PO) Take by mouth. multivitamin with minerals (Cerovite) 18-400 mg-mcg tablet tablet Take 1 tablet by mouth daily. No current facility-administered medications for this visit. Facility-Administered Medications Ordered in Other Visits Medication Dose Route Frequency Provider Last Rate Last Admin sodium chloride 0.9 % infusion 5-250 mL/hr IntraVENous Once PRN Denis Richey MD Review of Systems Cardiovascular: Negative. Genitourinary: Negative for pelvic pain and vaginal bleeding. Hematological: Negative for adenopathy. Paclitaxel and Levofloxacin There were no vitals taken for this visit. Physical Exam Vitals and nursing note reviewed. Exam conducted with a business services vice president present. Constitutional: Appearance: Normal appearance. Abdominal: General: Abdomen is flat. There is no distension. Palpations: Abdomen is soft. There is no mass. Genitourinary: General: Normal vulva. Comments: Uterus/tubes/ovaries are absent Vagina: well healed cuff. No masses BME: no masses Bladder: no masses Urethra: midline and mobile Lymphadenopathy: Upper Body: Right upper body: No supraclavicular adenopathy. Left upper body: No supraclavicular adenopathy. Lower Body: No right inguinal adenopathy. No left inguinal adenopathy. Neurological: Mental Status: She is alert. Assessment: No evidence of recurrent disease Echocardiogram has been reviewed Plan: Continue Herceptin. Discussed signs and symptoms of recurrent disease. Total time spent in review of EMR, coordination of infusion center with chemotherapy or calculation and checking of labs as well as echocardiograms was 25 minutes Will order a PET scan for March. Patient also needs mammogram Normal [facility] 36on 01-29-2024 36 Notified patient jesse t her EF was 60% and we are ok to restart trazimera. Scheduled for 02/01. Normal [facility] Echo Completeon 01-26-2024 Echo Complete [facility] [address] [place] [address] Echo Complete 01/26/24 0900 MR#: [id number] Acct: [id number] Name: CARY SWENSON Rep #: [id number] : 1950 73 From: Rishi Gonzalez MD Attending Dr: Dr. Denis Richey MD Status: R EG CLI Ordering Dr: Denis Richey MD Date: 01/26/24 Location: [facility] Sex: F C Admitted: Reason For Study: CHEMOTHERAPY Procedure This was a 2D Doppler, Color Flow transthoracic echocardiogram. Myocardial strain analysis was performed in this exam to aid in the assessment of cardiac function. Exam performed in department. Left Ventricle Normal LV size. The left ventricular ejection fraction is 60 %. Stage 1 diastolic dysfunction. No regional wall motion abnormalities noted. Right Ventricle Normal RV size. Normal systolic function. Atria Normal left atrium. Normal right atrium. Mitral Valve Normal mitral valve. Mild-Moderate (1-2+) eccentric mitral valve insufficiency. Tricuspid Valve Normal tricuspid valve. Mild tricuspid valve insufficiency. Pulmonary artery systolic pressure is 27 mmHg. Aortic Valve Trisinus/trileaflet aortic valve. Mild (1+) eccentric aortic valve insufficiency. Pulmonic Valve Normal pulmonic valve. Great Vessels Normal aortic root. The pulmonary artery is normal size. Normal inferior vena cava. Pericardium/Pleural No pericardial effusion. MMode/2D Measurements Calculations LVIDd: 4.5 cm IVSd: 0.98 cm LVOT diam: 2.0 cm LVIDs: 2.7 cm LVPWd: 0.81 cm LVOT area: 3.1 cm2 RVDd: 3.1 cm FS: 39.9 % asc Aorta Diam: 3.6 cm LAV(MOD-bp): 50.0 ml LVAd ap4: 24.7 cm2 LAV(MOD-bp) Indexed: 29.2 ml/m2 LVLd ap4: 7.7 cm LAV(MOD-sp2): 55.1 ml EDV(MOD-sp4): 64.8 ml LAV(MOD-sp4): 43.1 ml EDV(sp4-el): 67.0 ml LVAs ap4: 14.4 cm2 LVLs ap4: 6.5 cm ESV(MOD-sp4): 27.2 ml ESV(sp4-el): 27.2 ml EF(MOD-sp4): 58.0 % EF(sp4-el): 59.3 % LVAd ap2: 22.6 cm2 SV(MOD-sp4): 37.6 ml SV(MOD-sp2): 31.5 ml LVLd ap2: 7.6 cm SI(MOD-sp4): 22.0 ml/m2 SI(MOD-sp2): 18.4 ml/m2 EDV(MOD-sp2): 54.9 ml EDV(sp2-el): 56.7 ml LVAs ap2: 13.6 cm2 LVLs ap2: 6.7 cm ESV(MOD-sp2): 23.4 ml ESV(sp2-el): 23.5 ml EF(MOD-sp2): 57.4 % SV(sp4-el): 39.7 ml Ao sinus diam: 3.[address] Junction: 2.6 cm LA dimension(2D): 3.2 cm LA A4 area: 15.7 cm2 RA A4 area: 11.8 cm2 TAPSE: 1.5 cm Time Measurements MV dec time: 0.18 sec Doppler Measurements Calculations MV E max inder: 67.3 cm/sec Lat Peak E' Inder: 9.1 cm/sec Med Peak E' Inder: 8.0 cm/sec MV A max inder: 77.5 cm/sec E/E' lat: 7.4 E/E' med: 8.4 MV E/A: 0.87 MV dec slope: 369.0 cm/sec2 Ao V2 max: 103.0 cm/sec AI max inder: 386.3 cm/sec Ao max P.2 mmHg AI max P.7 mmHg Ao V2 mean: 73.2 cm/sec AI dec slope: 251.6 cm/sec2 Ao mean P.4 mmHg AI P1/2t: 449.7 msec Ao V2 VTI: 24.6 cm AV (velocity ratio): 0.82 FLORESITA(I,D): 2.5 cm2 FLORESITA(V,D): 2.6 cm2 LV V1 max: 88.2 cm/sec SV(LVOT): 62.2 ml PA V2 max: 74.5 cm/sec LV V1 max P.1 mmHg PA max PG (full): 1.1 mmHg LV V1 mean P.5 mmHg LV V1 mean: 56.0 cm/sec LV V1 VTI: 20.3 cm TR max inder: 241.1 cm/sec TR max P.3 mmHg ECHO/Echo Complete Interpretation Summary Normal LV size. The left ventricular ejection fraction is 60 %. Stage 1 diastolic dysfunction. Mild-Moderate (1-2+) eccentric mitral valve insufficiency. The global longitudinal strain is normal. The global longitudinal strain = -17 % (normal). ___ Ordering Physician: Denis Richey Referring Physician: Denis Richey Performed By: Bianca Dewey RDCS 01/26/24 1640 Date Rishi Gonzalez MD CC: Dr. Denis Richey MD Date Dictated: 01/26/24899 Date Transcribed: 01/26/24 1640 Drain Tile Machine Operator: Signed Normal [facility] ONC Echo Completeon 12-29-19 ONC Echo Complete [facility] [address] [place] [id number] ONC Echo Complete 12/29/23 0857 MR#: [id number] Acct: [id number] Name: CARY SWENSON Rep #: [id number] : [id number] From: Rishi Gonzalez MD Attending Dr: Dr. Denis Richey MD Status: R EG CLI Ordering Dr: Denis Richey MD Date: 12/29/23 Location: [facility] Sex: F C Admitted: Reason For Study: CHEMO Procedure This was a 2D Doppler, Color Flow transthoracic echocardiogram. Myocardial strain analysis was performed in this exam to aid in the assessment of cardiac function. Exam performed in department. Left Ventricle Normal LV size. Left ventricular systolic function is normal. The left ventricular ejection fraction is 55 %. Stage 1 diastolic dysfunction. No regional wall motion abnormalities noted. Right Ventricle Normal RV size. Normal systolic function. Atria Normal left atrium. Normal right atrium. Mitral Valve Normal mitral valve. Tricuspid Valve Normal tricuspid valve. Aortic Valve Trisinus/trileaflet aortic valve. Mild (1+) aortic valve insufficiency. Pericardium/Pleural No pericardial effusion. MMode/2D Measurements Calculations LVIDd: 4.5 cm IVSd: 0.88 cm Ao root diam: 3.3 cm LVIDs: 3.3 cm LVPWd: 1.0 cm RVDd: 2.8 cm FS: 25.6 % LAV(MOD-bp): 35.3 ml SV(MOD-sp4): 38.7 ml LVAd ap4: 25.6 cm2 LAV(MOD-bp) Indexed: 20.6 ml/m2 LVLd ap4: 8.3 cm LAV(MOD-sp2): 44.8 ml EDV(MOD-sp4): 67.3 ml LAV(MOD-sp4): 30.6 ml EDV(sp4-el): 67.1 ml LVAs ap4: 15.5 cm2 LVLs ap4: 7.2 cm ESV(MOD-sp4): 28.6 ml ESV(sp4-el): 28.2 ml EF(MOD-sp4): 57.5 % EF(sp4-el): 57.9 % SV(sp4-el): 38.8 ml LA dimension(2D): 2.9 cm LA A4 area: 14.0 cm2 TAPSE: 1.5 cm RA A4 area: 10.0 cm2 Time Measurements MV dec time: 0.20 sec Doppler Measurements Calculations MV E max inder: 66.7 cm/sec Lat Peak E' Inder: 7.0 cm/sec Med Peak E' Inder: 5.3 cm/sec MV A max inder: 81.7 cm/sec E/E' lat: 9.5 E/E' med: 12.5 MV E/A: 0.82 MV V2 max: 84.9 cm/sec Ao V2 max: 115.2 cm/sec MV max P.9 mmHg MV dec slope: 328.1 cm/sec2 Ao max P.3 mmHg MV V2 mean: 52.6 cm/sec Ao V2 mean: 78.1 cm/sec MV mean P.2 mmHg Ao mean P.8 mmHg MV V2 VTI: 20.2 cm Ao V2 VTI: 28.9 cm AV (velocity ratio): 0.75 AI max inder: 500.9 cm/sec LV V1 max: 100.6 cm/sec PA V2 max: 78.7 cm/sec AI max P.4 mmHg LV V1 max P.1 mmHg PA V2 mean: 58.0 cm/sec AI dec slope: 320.7 cm/sec2 LV V1 mean P.3 mmHg AI P1/2t: 457.4 msec LV V1 mean: 71.6 cm/sec LV V1 VTI: 21.8 cm ECHO/ONC Echo Complete Interpretation Summary Normal LV size. Left ventricular systolic function is normal. The left ventricular ejection fraction is 55 %. Stage 1 diastolic dysfunction. The global longitudinal strain is borderline abnormal. The global longitudinal strain = -16.5% (abnormal). Compared to previous study, the left ventricular systolic function is the same.. ___ Ordering Physician: Denis Richey Referring Physician: Denis Richey Performed By: Kelly Samson RCS 12/29/23 1441 Date Rishi Gonzalez MD CC: Dr. Denis Richey MD Date Dictated: 12/29/23 0857 Date Transcribed: 12/29/23 1441 Drain Tile Machine Operator: Signed Normal [facility] CA 125on 12-18-2023 Cancer Ag 125 Qn 12.9 [arb'U]/mL 0.0 - 35 .0 U/mL [facility] [employer] Interpretation and review of laboratory results Normal [facility] Results obtained by different methods should not be used interchangeably. The CA 125 result is based on a new assay and the results may not be comparable with assays run prior to 12/13/2022. [employer] CBC W Auto Differential pane l (Bld)on 12-15-2023 Basophils (Bld) [#/Vol] 0.0 10*3/uL 0.0 - 0.2 10*3/uL [facility] Basophils/100 WBC (Bld) 0.5 % 0.0 - 2.0 % [facility] Eosinophils (Bld) [#/Vol] 0.1 10*3/uL 0.0 - 0.5 10*3/uL [facility] Eosinophils/100 WBC (Bld) 1.8 % 0.0 - 6.0 % [facility] Erythrocyte distribution width (RBC) [Ratio] 12.8 % 11.5 - 15.0 % [facility] Hematocrit (Bld) [Volume fraction] 33.7 % Low 35.0 - 47.0 % [facility] Hemoglobin (Bld) [Mass/Vol] 11.4 g/dL Low 11.7 - 16.0 g/dL [facility] Immature granulocytes (Bld) [#/Vol] 0.0 10*3/uL NINF - 0.1 10*3/uL [facility] Immature granulocytes/100 WBC (Bld) 0.2 % 0.0 - 2.0 % [facility] Interpretation and review of laboratory results Abnormal [facility] Lymphocytes (Bld) [#/Vol] 1.2 10*3/uL 1.0 - 4.3 10*3/uL [facility] Lymphocytes/100 WBC (Bld) 27.3 % 15.0 - 45.0 % [facility] MCH (RBC) [Entitic mass] 33.1 pg 26. 0 - 34.0 pg [facility] MCHC (RBC) [Mass/Vol] 33.8 % 30.5 - 36.0 % [facility] MCV (RBC) [Entitic vol] 98.0 fL 77.0 - 99.0 fL [facility] Monocytes (Bld) [#/Vol] 0.3 10*3/uL 0.0 - 0.9 10*3/uL [facility] Monocytes/100 WBC (Bld) 7.0 % 5.0 - 13.0 % [facility] Neutrophils (Bld) [#/Vol] 2.8 10*3/uL 1.8 - 7.5 10*3/uL [facility] Neutrophils/100 WBC (Bld) 63.2 % 38.0 - 82.0 % [facility] Nucleated RBC/100 WBC (Bld) [Ratio] 0.0 % [facility] Platelet mean volume (Bld) [Entitic vol] 10.2 fL 9.0 - 12.7 fL [facility] Platelets (Bld) [#/Vol] 239 10*3/uL 140 - 440 10*3/uL [facility] RBC (Bld) [#/Vol] 3.44 10*6/uL Low 3.80 - 5.20 10*6/uL [facility] WBC (Bld) [#/Vol] 4.4 10*3/uL 3.6 - 10.7 10*3/uL [facility] Comprehensive metabolic 1998 panelon 12-15-2023 Albumin [Mass/Vol] 4.0 g/dL 3.5 - 5.0 g/dL [facility] ALP [Catalytic activity/Vol] 82 U/L 38 - 126 U/L [facility] ALT [Catalytic activity/Vol] 19 U/L 0 - 34 U/L [facility] Anion gap [Moles/Vol] 6 mmol/L 3 - 13 mmol/L [facility] AST [Catalytic activity/Vol] 31 U/L 15 - 46 U/L [facility] Bilirubin [Mass/Vol] 0.5 mg/dL 0.2 - 1 .3 mg/dL [facility] Calcium [Mass/Vol] 9.0 mg/dL 8.4 - 10. 4 mg/dL [facility] Chloride [Moles/Vol] 106 mmol/L 98 - 10 7 mmol/L [facility] CO2 [Moles/Vol] 26 mmol/L 22 - 30 mmol/L [facility] Creatinine [Mass/Vol] 0.75 mg/dL 0.52 - 1.04 mg/dL [facility] GFR/1.73 sq M.predicted (S/P/Bld) [Vol rate/Area] 85.2 mL/min - PINF [facility] Comment on above: Calculation based on the Chronic Kidney Disease Epidemiology Collaboration (CKD-EPI) equation refit without adjustment for race Glucose [Mass/Vol] 95 mg/dL 70 - 100 mg/dL [facility] Interpretation and review of laboratory results Abnormal [facility] Potassium [Moles/Vol] 4.1 mmol/L 3.5 - 5.1 mmol/L [facility] Protein [Mass/Vol] 6.9 g/dL 6.3 - 8.2 g/dL [facility] Sodium [Moles/Vol] 138 mmol/L 135 - 145 mmol/L [facility] Urea nitrogen [Mass/Vol] 20 mg/dL High 7 - 17 mg/dL [facility] CA 125on 2023 Cancer Ag 125 Qn 13.3 [arb'U]/mL 0.0 - 35 .0 U/mL [facility] Interpretation and review of laboratory results Normal [facility] Results obtained by different methods should not be used interchangeably. The CA 125 result is based on a new assay and the results may not be comparable with assays run prior to 12/13/2022. [facility] CBC W Auto Differential pane l (Bld)on 11-24-2023 Basophils (Bld) [#/Vol] 0.0 10*3/uL 0.0 - 0.2 10*3/uL [facility] Basophils/100 WBC (Bld) 0.7 % 0.0 - 2.0 % [facility] Eosinophils (Bld) [#/Vol] 0.1 10*3/uL 0.0 - 0.5 10*3/uL [facility] Eosinophils/100 WBC (Bld) 1.2 % 0.0 - 6.0 % [facility] Erythrocyte distribution width (RBC) [Ratio] 12.7 % 11.5 - 15.0 % [facility] Hematocrit (Bld) [Volume fraction] 31.9 % Low 35.0 - 47.0 % [facility] Hemoglobin (Bld) [Mass/Vol] 10.8 g/dL Low 11.7 - 16.0 g/dL [facility] Immature granulocytes (Bld) [#/Vol] 0.0 10*3/uL NINF - 0.1 10*3/uL [facility] Immature granulocytes/100 WBC (Bld) 0.5 % 0.0 - 2.0 % [facility] Interpretation and review of laboratory results Abnormal [facility] Lymphocytes (Bld) [#/Vol] 1.2 10*3/uL 1.0 - 4.3 10*3/uL [facility] Lymphocytes/100 WBC (Bld) 29.8 % 15.0 - 45.0 % [facility] MCH (RBC) [Entitic mass] 33.0 pg 26. 0 - 34.0 pg [facility] MCHC (RBC) [Mass/Vol] 33.9 % 30.5 - 36.0 % [facility] MCV (RBC) [Entitic vol] 97.6 fL 77.0 - 99.0 fL [facility] Monocytes (Bld) [#/Vol] 0.3 10*3/uL 0.0 - 0.9 10*3/uL [facility] Monocytes/100 WBC (Bld) 7.4 % 5.0 - 13.0 % [facility] Neutrophils (Bld) [#/Vol] 2.4 10*3/uL 1.8 - 7.5 10*3/uL [facility] Neutrophils/100 WBC (Bld) 60.4 % 38.0 - 82.0 % [facility] Nucleated RBC/100 WBC (Bld) [Ratio] 0.0 % [facility] Platelet mean volume (Bld) [Entitic vol] 9.8 fL 9.0 - 12.7 fL [facility] Platelets (Bld) [#/Vol] 199 10*3/uL 140 - 440 10*3/uL [facility] RBC (Bld) [#/Vol] 3.27 10*6/uL Low 3.80 - 5.20 10*6/uL [facility] WBC (Bld) [#/Vol] 4.0 10*3/uL 3.6 - 10.7 10*3/uL [facility] Comprehensive metabolic 1998 panelon 11-24-2023 Albumin [Mass/Vol] 4.0 g/dL 3.5 - 5.0 g/dL [facility] ALP [Catalytic activity/Vol] 90 U/L 38 - 126 U/L [facility] ALT [Catalytic activity/Vol] 22 U/L 0 - 34 U/L [facility] Anion gap [Moles/Vol] 9 mmol/L 3 - 13 mmol/L [facility] AST [Catalytic activity/Vol] 32 U/L 15 - 46 U/L [facility] Bilirubin [Mass/Vol] 0.5 mg/dL 0.2 - 1 .3 mg/dL [facility] Calcium [Mass/Vol] 8.7 mg/dL 8.4 - 10. 4 mg/dL [facility] Chloride [Moles/Vol] 107 mmol/L 98 - 10 7 mmol/L [facility] CO2 [Moles/Vol] 24 mmol/L 22 - 30 mmol/L [facility] Creatinine [Mass/Vol] 0.86 mg/dL 0.52 - 1.04 mg/dL [facility] GFR/1.73 sq M.predicted (S/P/Bld) [Vol rate/Area] 72.8 mL/min - PINF [facility] Comment on above: Calculation based on the Chronic Kidney Disease Epidemiology Collaboration (CKD-EPI) equation refit without adjustment for race Glucose [Mass/Vol] 152 mg/dL High 70 - 100 mg/dL [facility] Interpretation and review of laboratory results Abnormal [facility] Potassium [Moles/Vol] 3.6 mmol/L 3.5 - 5.1 mmol/L [facility] Protein [Mass/Vol] 6.9 g/dL 6.3 - 8.2 g/dL [facility] Sodium [Moles/Vol] 139 mmol/L 135 - 145 mmol/L [facility] Urea nitrogen [Mass/Vol] 21 mg/dL High 7 - 17 mg/dL [facility] Laboratory - Chemistry and C hemistry - challengeon 11-06-2023 Cancer Ag 125 Qn 13.8 [arb'U]/mL 0.0 - 35 .0 U/mL [facility] No Panel Informationon 11-05 Interpretation and review of laboratory results Normal [facility] Results obtained by different methods should not be used interchangeably. The CA 125 result is based on a new assay and the results may not be comparable with assays run prior to 12/13/2022. [facility] CBC W Auto Differential pane l (Bld)on 11-03-2023 Basophils (Bld) [#/Vol] 0.0 10*3/uL 0.0 - 0.2 10*3/uL [facility] Basophils (Bld) [#/Vol] 0 10*3/uL 0.0 - 0.2 10*3/uL [facility] Basophils/100 WBC (Bld) 0.6 % 0.0 - 2.0 % [facility] Eosinophils (Bld) [#/Vol] 0.1 10*3/uL 0.0 - 0.5 10*3/uL [facility] Eosinophils/100 WBC (Bld) 1.7 % 0.0 - 6.0 % [facility] Erythrocyte distribution width (RBC) [Ratio] 12.2 % 11.5 - 15.0 % [facility] Hematocrit (Bld) [Volume fraction] 33.1 % Low 35.0 - 47.0 % [facility] Hemoglobin (Bld) [Mass/Vol] 11.0 g/dL Low 11.7 - 16.0 g/dL [facility] Hemoglobin (Bld) [Mass/Vol] 11 g/dL Low 11.7 - 16.0 g/dL [facility] Immature granulocytes (Bld) [#/Vol] 0.0 10*3/uL NINF - 0.1 10*3/uL [facility] Immature granulocytes (Bld) [#/Vol] 0 10*3/uL NINF - 0.1 10*3/uL [facility] Immature granulocytes/100 WBC (Bld) 0.3 % 0.0 - 2.0 % [facility] Interpretation and review of laboratory results Abnormal [facility] Lymphocytes (Bld) [#/Vol] 1.4 10*3/uL 1.0 - 4.3 10*3/uL [facility] Lymphocytes/100 WBC (Bld) 39.1 % 15.0 - 45.0 % [facility] MCH (RBC) [Entitic mass] 32.9 pg 26. 0 - 34.0 pg [facility] MCHC (RBC) [Mass/Vol] 33.2 % 30.5 - 36.0 % [facility] MCV (RBC) [Entitic vol] 99.1 fL High 77.0 - 99.0 fL [facility] Monocytes (Bld) [#/Vol] 0.3 10*3/uL 0.0 - 0.9 10*3/uL [facility] Monocytes/100 WBC (Bld) 7.4 % 5.0 - 13.0 % [facility] Neutrophils (Bld) [#/Vol] 1.8 10*3/uL 1.8 - 7.5 10*3/uL [facility] Neutrophils/100 WBC (Bld) 50.9 % 38.0 - 82.0 % [facility] Nucleated RBC/100 WBC (Bld) [Ratio] 0.0 % [facility] Nucleated RBC/100 WBC (Bld) [Ratio] 0 % [facility] Platelet mean volume (Bld) [Entitic vol] 10.8 fL 9.0 - 12.7 fL [facility] Platelets (Bld) [#/Vol] 216 10*3/uL 140 - 440 10*3/uL [facility] RBC (Bld) [#/Vol] 3.34 10*6/uL Low 3.80 - 5.20 10*6/uL [facility] WBC (Bld) [#/Vol] 3.5 10*3/uL Low 3.6 - 10.7 10*3/uL [facility] Comprehensive metabolic 1998 panelon 11-03-2023 Albumin [Mass/Vol] 4.2 g/dL 3.5 - 5.0 g/dL [facility] ALP [Catalytic activity/Vol] 73 U/L 38 - 126 U/L [facility] ALT [Catalytic activity/Vol] 20 U/L 0 - 34 U/L [facility] Anion gap [Moles/Vol] 6 mmol/L 3 - 13 mmol/L [facility] AST [Catalytic activity/Vol] 40 U/L 15 - 46 U/L [facility] Bilirubin [Mass/Vol] 0.7 mg/dL 0.2 - 1 .3 mg/dL [facility] Calcium [Mass/Vol] 8.6 mg/dL 8.4 - 10. 4 mg/dL [facility] Chloride [Moles/Vol] 103 mmol/L 98 - 10 7 mmol/L [facility] CO2 [Moles/Vol] 27 mmol/L 22 - 30 mmol/L [facility] Creatinine [Mass/Vol] 0.75 mg/dL 0.52 - 1.04 mg/dL [facility] GFR/1.73 sq M.predicted (S/P/Bld) [Vol rate/Area] 85.8 mL/min - PINF [facility] Comment on above: Calculation based on the Chronic Kidney Disease Epidemiology Collaboration (CKD-EPI) equation refit without adjustment for race Glucose [Mass/Vol] 96 mg/dL 70 - 100 mg/dL [facility] Interpretation and review of laboratory results Normal [facility] Potassium [Moles/Vol] 4.2 mmol/L 3.5 - 5.1 mmol/L [facility] Protein [Mass/Vol] 7.3 g/dL 6.3 - 8.2 g/dL [facility] Sodium [Moles/Vol] 136 mmol/L 135 - 145 mmol/L [facility] Urea nitrogen [Mass/Vol] 17 mg/dL 7 - 17 mg/dL [facility] Slightly Hemolyzed. Interpret ALKALINE PHOSPHATASE, AST, and POTASSIUM with caution. [facility] CA 125on 10-16-2023 Cancer Ag 125 Qn 12.6 [arb'U]/mL 0.0 - 35 .0 U/mL [facility] Interpretation and review of laboratory results Normal [facility] Results obtained by different methods should not be used interchangeably. The CA 125 result is based on a new assay and the results may not be comparable with assays run prior to 12/13/2022. [facility] CBC W Auto Differential pane l (Bld)on 10-13-2023 Basophils (Bld) [#/Vol] 0.0 10*3/uL 0.0 - 0.2 10*3/uL [facility] Basophils/100 WBC (Bld) 0.7 % 0.0 - 2.0 % [facility] Eosinophils (Bld) [#/Vol] 0.1 10*3/uL 0.0 - 0.5 10*3/uL [facility] Eosinophils/100 WBC (Bld) 2.0 % 0.0 - 6.0 % [facility] Erythrocyte distribution width (RBC) [Ratio] 12.4 % 11.5 - 15.0 % [facility] Hematocrit (Bld) [Volume fraction] 34.5 % Low 35.0 - 47.0 % [facility] Hemoglobin (Bld) [Mass/Vol] 11.6 g/dL Low 11.7 - 16.0 g/dL [facility] Immature granulocytes (Bld) [#/Vol] 0.0 10*3/uL NINF - 0.1 10*3/uL [facility] Immature granulocytes/100 WBC (Bld) 0.2 % 0.0 - 2.0 % [facility] Interpretation and review of laboratory results Abnormal [facility] Lymphocytes (Bld) [#/Vol] 1.2 10*3/uL 1.0 - 4.3 10*3/uL [facility] Lymphocytes/100 WBC (Bld) 30.5 % 15.0 - 45.0 % [facility] MCH (RBC) [Entitic mass] 33.0 pg 26. 0 - 34.0 pg [facility] MCHC (RBC) [Mass/Vol] 33.6 % 30.5 - 36.0 % [facility] MCV (RBC) [Entitic vol] 98.0 fL 77.0 - 99.0 fL [facility] Monocytes (Bld) [#/Vol] 0.3 10*3/uL 0.0 - 0.9 10*3/uL [facility] Monocytes/100 WBC (Bld) 7.1 % 5.0 - 13.0 % [facility] Neutrophils (Bld) [#/Vol] 2.4 10*3/uL 1.8 - 7.5 10*3/uL [facility] Neutrophils/100 WBC (Bld) 59.5 % 38.0 - 82.0 % [facility] Nucleated RBC/100 WBC (Bld) [Ratio] 0.0 % [facility] Platelet mean volume (Bld) [Entitic vol] 10.3 fL 9.0 - 12.7 fL [facility] Platelets (Bld) [#/Vol] 213 10*3/uL 140 - 440 10*3/uL [facility] RBC (Bld) [#/Vol] 3.52 10*6/uL Low 3.80 - 5.20 10*6/uL [facility] WBC (Bld) [#/Vol] 4.1 10*3/uL 3.6 - 10.7 10*3/uL [facility] Comprehensive metabolic 1998 panelon 10-13-2023 Albumin [Mass/Vol] 4.3 g/dL 3.5 - 5.0 g/dL [facility] ALP [Catalytic activity/Vol] 85 U/L 38 - 126 U/L [facility] ALT [Catalytic activity/Vol] 25 U/L 0 - 34 U/L [facility] Anion gap [Moles/Vol] 10 mmol/L 3 - 13 mmol/L [facility] AST [Catalytic activity/Vol] 33 U/L 15 - 46 U/L [facility] Bilirubin [Mass/Vol] 0.5 mg/dL 0.2 - 1 .3 mg/dL [facility] Calcium [Mass/Vol] 8.8 mg/dL 8.4 - 10. 4 mg/dL [facility] Chloride [Moles/Vol] 102 mmol/L 98 - 10 7 mmol/L [facility] CO2 [Moles/Vol] 28 mmol/L 22 - 30 mmol/L [facility] Creatinine [Mass/Vol] 0.89 mg/dL 0.52 - 1.04 mg/dL [facility] GFR/1.73 sq M.predicted MDRD (S/P/Bld) [Vol rate/Area] 69.8 mL/min/{1.73_m2} - PINF [facility] Comment on above: Calculation based on the Chronic Kidney Disease Epidemiology Collaboration (CKD-EPI) equation refit without adjustment for race Glucose [Mass/Vol] 104 mg/dL High 70 - 100 mg/dL [facility] Interpretation and review of laboratory results Abnormal [facility] Potassium [Moles/Vol] 4.0 mmol/L 3.5 - 5.1 mmol/L [facility] Protein [Mass/Vol] 7.4 g/dL 6.3 - 8.2 g/dL [facility] Sodium [Moles/Vol] 140 mmol/L 135 - 145 mmol/L [facility] Urea nitrogen [Mass/Vol] 18 mg/dL High 7 - 17 mg/dL [facility] PET/CT Tumor Base -Thigh Sub son 10-03-2023 PET/CT Tumor Base -Thigh Subs [facility] Imaging Services [facility] [place] [address] PET/CT Tumor Base -Thigh Subs MR#: [id number] Acct: [id number] Name: CARY SWENSON Rep #: [id number] : 1950 F 72 From: Sunday [place]itten PCP: Dr. Denis Richey MD Status: [facility] Study: PET/CT Tumor Base -Thigh Subs Date of Exam: Exam# [id number] Ordering Dr: LUPE MASON [employer]ATE[employer] ACCOUNT MANAGER-C [phone] EXAMINATION: FDG PET-CT INDICATIONS: A 72-year-old female with history of endometrial carcinoma presenting for restaging examination. COMPARISON EXAMINATION: FDG PET study dated 03/14/23 TECHNIQUE: Following the intravenous administration of 13.38 mCi of F-18 deoxyglucose via the left antecubital fossa, multiplanar image acquisitions of the neck, chest, abdomen and pelvis to level of mid thigh, obtained at one hour post radiopharmaceutical administration contemporaneously interpreted with the current CT of the neck, chest, abdomen and pelvis, to level of mid thigh, dated 10/03/23 via coregistration and FDG PET study dated 03/14/23 reveals: BLOOD GLUCOSE LEVEL:?? 82 mg/dl?HEIGHT:?6 3 inches?WEIGHT: 150 lbs. FINDINGS: Head/Neck: There is no evidence of abnormal increased glucose metabolism in the pharyngeal mucosal space, parapharyngeal space, bilateral-lateral and anterior neck, hypopharynx and distribution of the laryngeal structures. The visualized portion of the cerebral cortical-subcortical structures demonstrate symmetric and preserved glucose metabolism. CHEST: There is no quantitative scintigraphic evidence of abnormal increased glucose metabolism within the context of the bilateral hemithorax pulmonary parenchyma, right and left hemithorax pleural interface, mediastinal structures and right-left thoracic perihilum. Previously defined morphologic-anatomic changes noted on review of CT of the chest dated 03/14/23, are essentially unchanged on the current examination. Abdomen/Pelvis: Normal physiologic distribution of the radiopharmaceutical is apparent in the hepatic and splenic parenchyma, both renal units, bladder and visualized intestinal tract. A large photopenic abnormality is noted in the hepatic parenchyma commensurate with cyst formation. Review of CT of the abdomen and pelvis dated 03/14/23 demonstrates no significant interval change. Skeletal: Degenerative changes are noted in the cervical, thoracic and lumbar spine without evidence of increased radiopharmaceutical concentration. PET/PET/CT Tumor Base -Thigh Subs IMPRESSION: 1. NEGATIVE EXAMINATION. There is no definitive quantitative scintigraphic evidence of recurrent/viable neoplasm. 2. Overall, compared to the prior FDG PET study dated 03/14/23, there is current and continued absence of defined viable neoplastic disease. Electronic Signature Sunday Granados D.O. Accurate Quantification of SUVs for this report are calculated using the exclusive [employer], ([place]. Patent No. [id number] [id number] [phone] [id number] [phone] patent [phone] ). Standardization and correction of the FDG SUV metric exclusively available with [employer] intellectual property, allow for vendor non-specific objective quantitative sequential FDG PET-CT comparison and otherwise unobtainable optimization of the sensitivity and specificity of the examination. [email or web address] Electronically Signed: Sunday Granados DO at 8:17 EDT , CC: Dr. 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 Myocardial strain analysis was performed in this exam to aid in the assessment of cardiac function. Exam performed in department. Left Ventricle Normal LV size. Left ventricular systolic function is normal. The estimated ejection fraction is 63 %. No regional wall motion abnormalities noted. Right Ventricle Normal RV size. Normal systolic function. Atria Normal left atrium. Normal right atrium. Mitral Valve There is mild to moderate mitral annular calcification. Tricuspid Valve Normal tricuspid valve. Mild (1+) tricuspid valve insufficiency. Pulmonary artery systolic pressure is 24 mmHg. Aortic Valve Normal aortic valve. Trisinus/trileaflet aortic valve. Trivial aortic valve insufficiency. Great Vessels Normal aortic root. The pulmonary artery is normal size. Normal inferior vena cava. Pericardium/Pleural No pericardial effusion. MMode/2D Measurements Calculations LVIDd: 4.5 cm IVSd: 0.91 cm Ao root diam: 3.0 cm LVIDs: 3.2 cm LVPWd: 0.82 cm RVDd: 3.0 cm FS: 28.8 % LAV(MOD-bp): 26.8 ml LVAd ap4: 24.2 cm2 SV(MOD-sp4): 36.4 ml LAV(MOD-bp) Indexed: 15.6 ml/m2 LVLd ap4: 7.4 cm LAV(MOD-sp2): 33.8 ml EDV(MOD-sp4): 63.6 ml LAV(MOD-sp4): 21.5 ml EDV(sp4-el): 66.5 ml LVAs ap4: 14.6 cm2 LVLs ap4: 6.4 cm ESV(MOD-sp4): 27.2 ml ESV(sp4-el): 28.2 ml EF(MOD-sp4): 57.2 % EF(sp4-el): 57.7 % SV(sp4-el): 38.4 ml LA dimension(2D): 3.1 cm LA A4 area: 10.5 cm2 RA A4 area: 8.7 cm2 TAPSE: 1.9 cm Time Measurements MV dec time: 0.25 sec Doppler Measurements Calculations MV E max inder: 52.6 cm/sec Lat Peak E' Inder: 9.5 cm/sec Med Peak E' Inder: 6.9 cm/sec MV A max inder: 60.3 cm/sec E/E' lat: 5.5 E/E' med: 7.6 MV E/A: 0.87 Ao V2 max: 111.7 cm/sec AI max inder: 401.7 cm/sec LV V1 max: 90.8 cm/sec Ao max P.0 mmHg AI max P.6 mmHg LV V1 max P.3 mmHg AI dec slope: 219.9 cm/sec2 AI P1/2t: 535.0 msec PA V2 max: 74.4 cm/sec TR max inder: 233.0 cm/sec TR max P.7 mmHg ECHO/ONC Echo Complete Interpretation Summary Normal LV size. Left ventricular systolic function is normal. The estimated ejection fraction is 63 %. Trivial aortic valve insufficiency. Pulmonary artery systolic pressure is 24 mmHg. The global longitudinal strain is normal. The global longitudinal strain = -17 % (normal). ___ Ordering Physician: LUPE MASON Referring Physician: LUPE MASON Performed By: Rylee Marte RDCS 09/27/23 1447 Date Rishi Gonzalez MD CC: Dr. 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 The CA 125 result is based on a new assay and the results may not be comparable with assays run prior to 12/13/2022. [facility] [employer] [facility] [employer] CBC W Auto Differential pane l (Bld)on 09-22-2023 Basophils (Bld) [#/Vol] 0.0 10*3/uL 0.0 - 0.2 10*3/uL [facility] [employer] Basophils/100 WBC (Bld) 0.7 % 0.0 - 2.0 % [facility] [employer] Eosinophils (Bld) [#/Vol] 0.1 10*3/uL 0.0 - 0.5 10*3/uL [facility] [employer] Eosinophils/100 WBC (Bld) 1.4 % 0.0 - 6.0 % [facility] [employer] Erythrocyte distribution width (RBC) [Ratio] 12.3 % 11.5 - 15.0 % [facility] [employer] Hematocrit (Bld) [Volume fraction] 34.9 % Low 35.0 - 47.0 % [facility] [employer] Hemoglobin (Bld) [Mass/Vol] 11.8 g/dL 11.7 - 16.0 g/dL [facility] [employer] Immature granulocytes (Bld) [#/Vol] 0.0 10*3/uL NINF - 0.1 10*3/uL [facility] [employer] Immature granulocytes/100 WBC (Bld) 0.0 % 0.0 - 2.0 % [facility] [employer] Interpretation and review of laboratory results Abnormal [facility] [employer] Lymphocytes (Bld) [#/Vol] 1.2 10*3/uL 1.0 - 4.3 10*3/uL [facility] [employer] Lymphocytes/100 WBC (Bld) 27.9 % 15.0 - 45.0 % [facility] [employer] MCH (RBC) [Entitic mass] 32.8 pg 26. 0 - 34.0 pg [facility] [employer] MCHC (RBC) [Mass/Vol] 33.8 % 30.5 - 36.0 % [facility] [employer] MCV (RBC) [Entitic vol] 96.9 fL 77.0 - 99.0 fL [facility] Monocytes (Bld) [#/Vol] 0.3 10*3/uL 0.0 - 0.9 10*3/uL [facility] Monocytes/100 WBC (Bld) 6.4 % 5.0 - 13.0 % [facility] Neutrophils (Bld) [#/Vol] 2.7 10*3/uL 1.8 - 7.5 10*3/uL [facility] Neutrophils/100 WBC (Bld) 63.6 % 38.0 - 82.0 % [facility] Nucleated RBC/100 WBC (Bld) [Ratio] 0.0 % [facility] Platelet mean volume (Bld) [Entitic vol] 10.6 fL 9.0 - 12.7 fL [facility] Platelets (Bld) [#/Vol] 228 10*3/uL 140 - 440 10*3/uL [facility] RBC (Bld) [#/Vol] 3.60 10*6/uL Low 3.80 - 5.20 10*6/uL [facility] WBC (Bld) [#/Vol] 4.2 10*3/uL 3.6 - 10.7 10*3/uL [facility] Comprehensive metabolic 1998 panelOrdered By: Denis Olmos on 09-22-2023 Albumin [Mass/Vol] 4.2 g/dL 3.5 - 5.0 g/dL [facility] ALP [Catalytic activity/Vol] 92 U/L 38 - 126 U/L [facility] ALT [Catalytic activity/Vol] 23 U/L 0 - 34 U/L [facility] Anion gap [Moles/Vol] 9 mmol/L 3 - 13 mmol/L [facility] AST [Catalytic activity/Vol] 31 U/L 15 - 46 U/L [facility] Bilirubin [Mass/Vol] 0.4 mg/dL 0.2 - 1 .3 mg/dL [facility] Calcium [Mass/Vol] 8.8 mg/dL 8.4 - 10. 4 mg/dL [facility] Chloride [Moles/Vol] 105 mmol/L 98 - 10 7 mmol/L [facility] CO2 [Moles/Vol] 26 mmol/L 22 - 30 mmol/L [facility] Creatinine [Mass/Vol] 0.82 mg/dL 0.52 - 1.04 mg/dL [facility] GFR/1.73 sq M.predicted MDRD (S/P/Bld) [Vol rate/Area] 77.1 mL/min/{1.73_m2} - PINF [facility] Comment on above: Calculation based on the Chronic Kidney Disease Epidemiology Collaboration (CKD-EPI) equation refit without adjustment for race Glucose [Mass/Vol] 96 mg/dL 70 - 100 mg/dL [facility] Interpretation and review of laboratory results Abnormal [facility] Potassium [Moles/Vol] 3.8 mmol/L 3.5 - 5.1 mmol/L [facility] Protein [Mass/Vol] 7.3 g/dL 6.3 - 8.2 g/dL [facility] Sodium [Moles/Vol] 140 mmol/L 135 - 145 mmol/L [facility] Urea nitrogen [Mass/Vol] 20 mg/dL High 7 - 17 mg/dL [facility] Laboratory - Chemistry and C hemistry - challengeon 09-04-2023 Cancer Ag 125 Qn 12.7 [arb'U]/mL 0.0 - 35 .0 U/mL [facility] No Panel Informationon 09-03 Interpretation and review of laboratory results Normal [facility] Results obtained by different methods should not be used interchangeably. The CA 125 result is based on a new assay and the results may not be comparable with assays run prior to 12/13/2022. [facility] CBC W Auto Differential pane l (Bld)on 09-01-2023 Basophils (Bld) [#/Vol] 0.0 10*3/uL 0.0 - 0.2 10*3/uL [facility] Basophils/100 WBC (Bld) 0.7 % 0.0 - 2.0 % [facility] Eosinophils (Bld) [#/Vol] 0.1 10*3/uL 0.0 - 0.5 10*3/uL [facility] Eosinophils/100 WBC (Bld) 1.6 % 0.0 - 6.0 % [facility] Erythrocyte distribution width (RBC) [Ratio] 12.4 % 11.5 - 15.0 % [facility] Hematocrit (Bld) [Volume fraction] 33.7 % Low 35.0 - 47.0 % [facility] Hemoglobin (Bld) [Mass/Vol] 11.5 g/dL Low 11.7 - 16.0 g/dL [facility] Immature granulocytes (Bld) [#/Vol] 0.0 10*3/uL NINF - 0.1 10*3/uL [facility] Immature granulocytes/100 WBC (Bld) 0.2 % 0.0 - 2.0 % [facility] Interpretation and review of laboratory results Abnormal [facility] Lymphocytes (Bld) [#/Vol] 1.3 10*3/uL 1.0 - 4.3 10*3/uL [facility] Lymphocytes/100 WBC (Bld) 29.9 % 15.0 - 45.0 % [facility] MCH (RBC) [Entitic mass] 33.2 pg 26. 0 - 34.0 pg [facility] MCHC (RBC) [Mass/Vol] 34.1 % 30.5 - 36.0 % [facility] MCV (RBC) [Entitic vol] 97.4 fL 77.0 - 99.0 fL [facility] Monocytes (Bld) [#/Vol] 0.4 10*3/uL 0.0 - 0.9 10*3/uL [facility] Monocytes/100 WBC (Bld) 8.2 % 5.0 - 13.0 % [facility] Neutrophils (Bld) [#/Vol] 2.5 10*3/uL 1.8 - 7.5 10*3/uL [facility] Neutrophils/100 WBC (Bld) 59.4 % 38.0 - 82.0 % [facility] Nucleated RBC/100 WBC (Bld) [Ratio] 0.0 % [facility] Platelet mean volume (Bld) [Entitic vol] 10.2 fL 9.0 - 12.7 fL [facility] Platelets (Bld) [#/Vol] 217 10*3/uL 140 - 440 10*3/uL [facility] RBC (Bld) [#/Vol] 3.46 10*6/uL Low 3.80 - 5.20 10*6/uL [facility] WBC (Bld) [#/Vol] 4.3 10*3/uL 3.6 - 10.7 10*3/uL [facility] Comprehensive metabolic 1998 panelon 09-01-2023 Albumin [Mass/Vol] 4.0 g/dL 3.5 - 5.0 g/dL [facility] ALP [Catalytic activity/Vol] 84 U/L 38 - 126 U/L [facility] ALT [Catalytic activity/Vol] 24 U/L 0 - 34 U/L [facility] Anion gap [Moles/Vol] 5 mmol/L 3 - 13 mmol/L [facility] AST [Catalytic activity/Vol] 36 U/L 15 - 46 U/L [facility] Bilirubin [Mass/Vol] 0.5 mg/dL 0.2 - 1 .3 mg/dL [facility] Calcium [Mass/Vol] 8.5 mg/dL 8.4 - 10. 4 mg/dL [facility] Chloride [Moles/Vol] 104 mmol/L 98 - 10 7 mmol/L [facility] CO2 [Moles/Vol] 28 mmol/L 22 - 30 mmol/L [facility] Creatinine [Mass/Vol] 0.78 mg/dL 0.52 - 1.04 mg/dL [facility] GFR/1.73 sq M.predicted MDRD (S/P/Bld) [Vol rate/Area] 81.8 mL/min/{1.73_m2} - PINF [facility] Comment on above: Calculation based on the Chronic Kidney Disease Epidemiology Collaboration (CKD-EPI) equation refit without adjustment for race Glucose [Mass/Vol] 94 mg/dL 70 - 100 mg/dL [facility] Interpretation and review of laboratory results Abnormal [facility] Potassium [Moles/Vol] 4.2 mmol/L 3.5 - 5.1 mmol/L [facility] Protein [Mass/Vol] 7.1 g/dL 6.3 - 8.2 g/dL [facility] Sodium [Moles/Vol] 138 mmol/L 135 - 145 mmol/L [facility] Urea nitrogen [Mass/Vol] 19 mg/dL High 7 - 17 mg/dL [facility] US Heart TransthoracicOrdere d By: Ayla Rush on 08-07-2023 Aortic Sinus Valsalva 2.9 cm [facility] [employer] Work Phone: Aortic Sinus Valsalva Index 1.67 cm/m2 [facility] [employer] Work Phone: AR Max Velocity PISA 4.2 m/s [facility] [employer] Work Phone: AR PHT 359.3 ms [facility] [employer] Work Phone: Ascending Aorta 3.6 cm [facility] Work Phone: [phone] Ascending Aorta Index 2.07 cm/m2 [place] [employer] Work Phone: AV Area by Peak Velocity 2.2 cm2 [facility] Work Phone: AV Peak Gradient 5 mmHg [facility] Work Phone: AV Peak Velocity 1.1 m/s [facility] Work Phone: AV Velocity Ratio 0.91 [facility] Work Phone: FLORESITA/BSA Peak Velocity 1.3 cm2/m2 [place] [facility] [employer] Work Phone: E/E' Lateral 8.56 [facility] [employer] Work Phone: E/E' Ratio (Averaged) 10.69 [place] [facility] [employer] Work Phone: E/E' Septal 12.83 [facility] [employer] Work Phone: [phone] EF BP 54 % Abnormal 55 - 100 % [facility] [employer] Work Phone: [phone] Global Longitudinal Strain -16.2 % [facility] [employer] Work Phone: Interpretation and review of laboratory results Abnormal [facility] [employer] Work Phone: [phone] IVC Diameter 1.5 cm [facility] [employer] Work Phone: [phone] LA Volume 2C 57 mL Abnormal 22 - 52 mL [facility] [employer] Work Phone: [phone] LA Volume 4C 46 mL 22 - 52 mL [facility] [employer] Work Phone: [phone] LA Volume A/L 57 mL [facility] [employer] Work Phone: [phone] LA Volume Index 2C 33 mL/m2 16 - 34 mL/m2 [facility] [employer] Work Phone: [phone] LA Volume Index 4C 26 mL/m2 16 - 34 mL/m2 [facility] [employer] Work Phone: [phone] LA Volume Index A/L 33 mL/m2 16 - 34 mL/m2 [facility] [employer] Work Phone: [phone] LV E' Lateral Velocity 9 cm/s [facility] Work Phone: LV E' Septal Velocity 6 cm/s [facility] Work Phone: LV EDV A2C 82 mL [facility] Work Phone: LV EDV A4C 78 mL [facility] Work Phone: LV EDV BP 80 mL 56 - 104 mL [facility] [employer] Work Phone: LV EDV Index A2C 47 mL/m2 [facility] [employer] Work Phone: LV EDV Index A4C 45 mL/m2 [facility] [employer] Work Phone: LV EDV Index BP 46 mL/m2 [facility] [employer] Work Phone: LV Ejection Fraction A2C 56 % [facility] [employer] Work Phone: LV Ejection Fraction A4C 57 % [facility] [employer] Work Phone: LV ESV A2C 36 mL [facility] [employer] Work Phone: LV ESV A4C 34 mL [facility] [employer] Work Phone: LV ESV BP 36 mL 19 - 49 mL [facility] [employer] Work Phone: LV ESV Index A2C 21 mL/m2 [facility] [employer] Work Phone: LV ESV Index A4C 20 mL/m2 [facility] [employer] Work Phone: LV ESV Index BP 21 mL/m2 [facility] [employer] Work Phone: LVOT Area 2.3 cm2 [facility] [employer] Work Phone: LVOT Cardiac Output 3.6 liter/mi nu te [facility] [employer] Work Phone: LVOT Diameter 1.7 cm [facility] [employer] Work Phone: LVOT Mean Gradient 2 mmHg [facility] [employer] Work Phone: LVOT Peak Gradient 4 mmHg [facility] [employer] Work Phone: LVOT Peak Velocity 1.0 m/s [facility] [employer] Work Phone: LVOT Stroke Volume Index 28.7 mL/m2 [facility] Work Phone: [phone] LVOT SV 49.9 ml [facility] [employer] Phone: [phone] LVOT VTI 22.0 cm [facility] [employer] Phone: [phone] MV A Velocity 0.69 m[facility]s [facility] Phone: [phone] MV E Velocity 0.77 m/s [facility] Phone: [phone] MV E Wave Deceleration Time 159.2 ms [facility] [employer] Phone: [phone] MV E/A 1.12 [facility] [employer] Phone: [phone] RV Free Wall Peak S' 9 cm/s [facility] [employer] Phone: [phone] Sinotubular Junction 2.5 cm [facility] [employer] Phone: [phone] TAPSE 1.8 cm 1.7 cm [facility] [employer] Phone: [phone] TR Max Velocity 2.22 m/s [facility] [employer] Phone: [phone] TR Peak Gradient 20 mmHg [facility] [employer] Phone: [phone] [facility] [employer] Phone: [phone] US Heart Transthoracicon Left Ventricle: Left ventricle size is normal. Normal wall thickness. Low normal left ventricular systolic function. EF by 2D Simpsons Biplane is 54%. Global longitudinal strain is normal with a value of -16.2%. Normal wall motion. Right Ventricle: Right ventricle size is normal. Normal systolic function. Aortic Valve: Moderate (2+) regurgitation with a centrally directed jet. Mitral Valve: Valve structure is normal. Mild to moderate (1-2+) regurgitation. Left Ventricle Left ventricle size is normal. Normal wall thickness. Low normal left ventricular systolic function. EF by 2D Simpsons Biplane is 54%. Global longitudinal strain is normal with a value of -16.2%. Normal wall motion. Right Ventricle Right ventricle size is normal. Normal systolic function. Left Atrium Left atrium size is normal. Right Atrium Right atrium size is normal. IVC/SVC IVC diameter is normal and decreases greater than 50% during inspiration; therefore the estimated right atrial pressure is normal (~3 mmHg). Mitral Valve Valve structure is normal. Mild to moderate (1-2+) regurgitation. No stenosis noted. Tricuspid Valve Valve structure is normal. Mild (1+) regurgitation. Aortic Valve Trileaflet. No cusp thickening. No cusp calcification. Moderate (2+) regurgitation with a centrally directed jet. No stenosis. Pulmonic Valve Valve structure is normal. Mild (1+) regurgitation. Ascending Aorta Normal sized sinuses of Valsalva and ascending aorta. Pericardium No pericardial effusion. Septum No interatrial shunt visualized on color Doppler. Study Details Image quality: adequate. Additional technique includes myocardial strain. Blood pressure: 178/79 mmHg. No contrast was given. CV CPACS CA 125on 07-03-2023 Cancer Ag 125 Qn 12.6 [arb'U]/mL 0.0 - 35 .0 U/mL [facility] [employer] Interpretation and review of laboratory results Normal [facility] [employer] Results obtained by different methods should not be used interchangeably. The CA 125 result is based on a new assay and the results may not be comparable with assays run prior to 12/13/2022. [facility] [employer] CBC W Auto Differential pane l (Bld)on 06-30-2023 Basophils (Bld) [#/Vol] 0.0 10*3/uL 0.0 - 0.2 10*3/uL [facility] Basophils/100 WBC (Bld) 0.5 % 0.0 - 2.0 % [facility] Eosinophils (Bld) [#/Vol] 0.0 10*3/uL 0.0 - 0.5 10*3/uL [facility] Eosinophils/100 WBC (Bld) 1.0 % 0.0 - 6.0 % [facility] [employer] Erythrocyte distribution width (RBC) [Ratio] 12.6 % 11.5 - 15.0 % [facility] [employer] Hematocrit (Bld) [Volume fraction] 33.3 % Low 35.0 - 47.0 % [facility] [employer] Hemoglobin (Bld) [Mass/Vol] 11.2 g/dL Low 11.7 - 16.0 g/dL [facility] Immature granulocytes (Bld) [#/Vol] 0.0 10*3/uL NINF - 0.1 10*3/uL [facility] Immature granulocytes/100 WBC (Bld) 0.2 % 0.0 - 2.0 % [facility] [employer] Interpretation and review of laboratory results Abnormal [facility] Lymphocytes (Bld) [#/Vol] 1.3 10*3/uL 1.0 - 4.3 10*3/uL [facility] Lymphocytes/100 WBC (Bld) 30.7 % 15.0 - 45.0 % [facility] MCH (RBC) [Entitic mass] 32.8 pg 26. 0 - 34.0 pg [facility] MCHC (RBC) [Mass/Vol] 33.6 % 30.5 - 36.0 % [facility] MCV (RBC) [Entitic vol] 97.7 fL 77.0 - 99.0 fL [facility] Monocytes (Bld) [#/Vol] 0.3 10*3/uL 0.0 - 0.9 10*3/uL [facility] Monocytes/100 WBC (Bld) 7.2 % 5.0 - 13.0 % [facility] Neutrophils (Bld) [#/Vol] 2.5 10*3/uL 1.8 - 7.5 10*3/uL [facility] Neutrophils/100 WBC (Bld) 60.4 % 38.0 - 82.0 % [facility] Nucleated RBC/100 WBC (Bld) [Ratio] 0.0 % [facility] Platelet mean volume (Bld) [Entitic vol] 10.8 fL 9.0 - 12.7 fL [facility] Platelets (Bld) [#/Vol] 210 10*3/uL 140 - 440 10*3/uL [facility] RBC (Bld) [#/Vol] 3.41 10*6/uL Low 3.80 - 5.20 10*6/uL [facility] WBC (Bld) [#/Vol] 4.2 10*3/uL 3.6 - 10.7 10*3/uL [facility] Comprehensive metabolic 1998 panelon 06-30-2023 Albumin [Mass/Vol] 4.4 g/dL 3.5 - 5.0 g/dL [facility] ALP [Catalytic activity/Vol] 93 U/L 38 - 126 U/L [facility] ALT [Catalytic activity/Vol] 21 U/L 0 - 34 U/L [facility] Anion gap [Moles/Vol] 8 mmol/L 3 - 13 mmol/L [facility] AST [Catalytic activity/Vol] 39 U/L 15 - 46 U/L [facility] Bilirubin [Mass/Vol] 0.6 mg/dL 0.2 - 1 .3 mg/dL [facility] Calcium [Mass/Vol] 9.0 mg/dL 8.4 - 10. 4 mg/dL [facility] Chloride [Moles/Vol] 103 mmol/L 98 - 10 7 mmol/L [facility] CO2 [Moles/Vol] 27 mmol/L 22 - 30 mmol/L [facility] Creatinine [Mass/Vol] 0.78 mg/dL 0.52 - 1.04 mg/dL [facility] GFR/1.73 sq M.predicted MDRD (S/P/Bld) [Vol rate/Area] 81.8 mL/min/{1.73_m2} - PINF [facility] Comment on above: Calculation based on the Chronic Kidney Disease Epidemiology Collaboration (CKD-EPI) equation refit without adjustment for race Glucose [Mass/Vol] 93 mg/dL 70 - 100 mg/dL [facility] Interpretation and review of laboratory results Abnormal [facility] Potassium [Moles/Vol] 3.9 mmol/L 3.5 - 5.1 mmol/L [facility] Protein [Mass/Vol] 7.6 g/dL 6.3 - 8.2 g/dL [facility] Sodium [Moles/Vol] 139 mmol/L 135 - 145 mmol/L [facility] Urea nitrogen [Mass/Vol] 21 mg/dL High 7 - 17 mg/dL [facility] CA 125on 06-09-2023 Cancer Ag 125 Qn 13.9 [arb'U]/mL 0.0 - 35 .0 U/mL [facility] Interpretation and review of laboratory results Normal [facility] Results obtained by different methods should not be used interchangeably. The CA 125 result is based on a new assay and the results may not be comparable with assays run prior to 12/13/2022. [facility] CBC W Auto Differential pane l (Bld)on 06-09-2023 Basophils (Bld) [#/Vol] 0.0 10*3/uL 0.0 - 0.2 10*3/uL [facility] Basophils/100 WBC (Bld) 0.5 % 0.0 - 2.0 % [facility] Eosinophils (Bld) [#/Vol] 0.1 10*3/uL 0.0 - 0.5 10*3/uL [facility] Eosinophils/100 WBC (Bld) 1.5 % 0.0 - 6.0 % [facility] Erythrocyte distribution width (RBC) [Ratio] 12.4 % 11.5 - 15.0 % [facility] Hematocrit (Bld) [Volume fraction] 33.6 % Low 35.0 - 47.0 % [facility] Hemoglobin (Bld) [Mass/Vol] 11.4 g/dL Low 11.7 - 16.0 g/dL [facility] Immature granulocytes (Bld) [#/Vol] 0.0 10*3/uL NINF - 0.1 10*3/uL [facility] Immature granulocytes/100 WBC (Bld) 0.0 % 0.0 - 2.0 % [facility] Interpretation and review of laboratory results Abnormal [facility] Lymphocytes (Bld) [#/Vol] 1.2 10*3/uL 1.0 - 4.3 10*3/uL [facility] Lymphocytes/100 WBC (Bld) 30.6 % 15.0 - 45.0 % [facility] MCH (RBC) [Entitic mass] 32.9 pg 26. 0 - 34.0 pg [facility] MCHC (RBC) [Mass/Vol] 33.9 % 30.5 - 36.0 % [facility] MCV (RBC) [Entitic vol] 96.8 fL 77.0 - 99.0 fL [facility] Monocytes (Bld) [#/Vol] 0.3 10*3/uL 0.0 - 0.9 10*3/uL [facility] Monocytes/100 WBC (Bld) 7.5 % 5.0 - 13.0 % [facility] Neutrophils (Bld) [#/Vol] 2.4 10*3/uL 1.8 - 7.5 10*3/uL [facility] Neutrophils/100 WBC (Bld) 59.9 % 38.0 - 82.0 % [facility] Nucleated RBC/100 WBC (Bld) [Ratio] 0.0 % [facility] Platelet mean volume (Bld) [Entitic vol] 10.0 fL 9.0 - 12.7 fL [facility] Platelets (Bld) [#/Vol] 219 10*3/uL 140 - 440 10*3/uL [facility] RBC (Bld) [#/Vol] 3.47 10*6/uL Low 3.80 - 5.20 10*6/uL [facility] WBC (Bld) [#/Vol] 4.0 10*3/uL 3.6 - 10.7 10*3/uL [facility] Comprehensive metabolic 1998 panelon 06-09-2023 Albumin [Mass/Vol] 4.4 g/dL 3.5 - 5.0 g/dL [facility] ALP [Catalytic activity/Vol] 94 U/L 38 - 126 U/L [facility] ALT [Catalytic activity/Vol] 22 U/L 0 - 34 U/L [facility] Anion gap [Moles/Vol] 9 mmol/L 3 - 13 mmol/L [facility] AST [Catalytic activity/Vol] 33 U/L 15 - 46 U/L [facility] Bilirubin [Mass/Vol] 0.4 mg/dL 0.2 - 1 .3 mg/dL [facility] Calcium [Mass/Vol] 9.0 mg/dL 8.4 - 10. 4 mg/dL [facility] Chloride [Moles/Vol] 103 mmol/L 98 - 10 7 mmol/L [facility] CO2 [Moles/Vol] 28 mmol/L 22 - 30 mmol/L [facility] Creatinine [Mass/Vol] 0.87 mg/dL 0.52 - 1.04 mg/dL [facility] GFR/1.73 sq M.predicted MDRD (S/P/Bld) [Vol rate/Area] 71.8 mL/min/{1.73_m2} - PINF [facility] Comment on above: Calculation based on the Chronic Kidney Disease Epidemiology Collaboration (CKD-EPI) equation refit without adjustment for race Glucose [Mass/Vol] 99 mg/dL 70 - 100 mg/dL [facility] Interpretation and review of laboratory results Abnormal [facility] Potassium [Moles/Vol] 3.8 mmol/L 3.5 - 5.1 mmol/L [facility] Protein [Mass/Vol] 7.7 g/dL 6.3 - 8.2 g/dL [facility] Sodium [Moles/Vol] 140 mmol/L 135 - 145 mmol/L [facility] Urea nitrogen [Mass/Vol] 19 mg/dL High 7 - 17 mg/dL [facility] CA 125on 05-01-2023 Cancer Ag 125 Qn 14.2 [arb'U]/mL 0.0 - 35 .0 U/mL [facility] Interpretation and review of laboratory results Normal [facility] Results obtained by different methods should not be used interchangeably. The CA 125 result is based on a new assay and the results may not be comparable with assays run prior to 12/13/2022. [facility] CBC W Auto Differential pane l (Bld)Ordered By: Rylee Jackson on 04-28-2023 Basophils (Bld) [#/Vol] 0.0 10*3/uL 0.0 - 0.2 10*3/uL [facility] Basophils/100 WBC (Bld) 0.3 % 0.0 - 2.0 % [facility] Eosinophils (Bld) [#/Vol] 0.1 10*3/uL 0.0 - 0.5 10*3/uL [facility] Eosinophils/100 WBC (Bld) 1.3 % 1.0 - 6.0 % [facility] Erythrocyte distribution width (RBC) [Ratio] 12.7 % 11.5 - 14.5 % [facility] Hematocrit (Bld) [Volume fraction] 35.6 % 35.0 - 47.0 % [facility] Hemoglobin (Bld) [Mass/Vol] 11.8 g/dL 11.7 - 16.0 g/dL [facility] Interpretation and review of laboratory results Abnormal [facility] Lymphocytes (Bld) [#/Vol] 1.3 10*3/uL 1.0 - 4.3 10*3/uL [facility] Lymphocytes/100 WBC (Bld) 32.9 % 20.0 - 40.0 % [facility] MCH (RBC) [Entitic mass] 33.0 pg 26. 0 - 34.0 pg [facility] MCHC (RBC) [Mass/Vol] 33.2 % 32.0 - 36.0 % [facility] MCV (RBC) [Entitic vol] 99.4 fL High 80.0 - 98.0 fL [facility] Monocytes (Bld) [#/Vol] 0.3 10*3/uL 0.0 - 0.8 10*3/uL [facility] [employer] Monocytes/100 WBC (Bld) 7.1 % 2.0 - 10.0 % [facility] Neutrophils (Bld) [#/Vol] 2.3 10*3/uL 1.8 - 7.0 10*3/uL [facility] Neutrophils/100 WBC (Bld) 58.4 % 40.0 - 80.0 % [facility] Nucleated RBC/100 WBC (Bld) [Ratio] 0.1 % [facility] Platelet mean volume (Bld) [Entitic vol] 8.7 fL 7.4 - 12.4 fL [facility] Platelets (Bld) [#/Vol] 217 10*3/uL 140 - 440 10*3/uL [facility] RBC (Bld) [#/Vol] 3.58 10*6/uL Low 3.8 - 5.20 10*6/uL [facility] WBC (Bld) [#/Vol] 3.9 10*3/uL 3.6 - 10.7 10*3/uL [facility] Comprehensive metabolic 1998 panelon 04-28-2023 Albumin [Mass/Vol] 4.3 g/dL 3.5 - 5.0 g/dL [facility] ALP [Catalytic activity/Vol] 94 U/L 38 - 126 U/L [facility] ALT [Catalytic activity/Vol] 24 U/L 0 - 34 U/L [facility] Anion gap [Moles/Vol] 6 mmol/L 3 - 13 mmol/L [facility] AST [Catalytic activity/Vol] 35 U/L 15 - 46 U/L [facility] Bilirubin [Mass/Vol] 0.4 mg/dL 0.2 - 1 .3 mg/dL [facility] Calcium [Mass/Vol] 8.9 mg/dL 8.4 - 10. 4 mg/dL [facility] Chloride [Moles/Vol] 103 mmol/L 98 - 10 7 mmol/L [facility] CO2 [Moles/Vol] 30 mmol/L 22 - 30 mmol/L [facility] Creatinine [Mass/Vol] 0.83 mg/dL 0.52 - 1.04 mg/dL [facility] GFR/1.73 sq M.predicted MDRD (S/P/Bld) [Vol rate/Area] 75.9 mL/min/{1.73_m2} - PINF [facility] Comment on above: Calculation based on the Chronic Kidney Disease Epidemiology Collaboration (CKD-EPI) equation refit without adjustment for race Glucose [Mass/Vol] 97 mg/dL 70 - 100 mg/dL [facility] Interpretation and review of laboratory results Abnormal [facility] Potassium [Moles/Vol] 4.0 mmol/L 3.5 - 5.1 mmol/L [facility] Protein [Mass/Vol] 7.7 g/dL 6.3 - 8.2 g/dL [facility] Sodium [Moles/Vol] 139 mmol/L 135 - 145 mmol/L [facility] Urea nitrogen [Mass/Vol] 18 mg/dL High 7 - 17 mg/dL [facility] CA 125on 04-10-2023 Cancer Ag 125 Qn 13.9 [arb'U]/mL 0.0 - 35 .0 U/mL [facility] Interpretation and review of laboratory results Normal [facility] Results obtained by different methods should not be used interchangeably. The CA 125 result is based on a new assay and the results may not be comparable with assays run prior to 12/13/2022. [facility] CBC W Auto Differential pane l (Bld)Ordered By: Marichuy Arrieta on 04-07-2023 Basophils (Bld) [#/Vol] 0.0 10*3/uL 0.0 - 0.2 10*3/uL [facility] Basophils/100 WBC (Bld) 0.6 % 0.0 - 2.0 % [facility] Eosinophils (Bld) [#/Vol] 0.1 10*3/uL 0.0 - 0.5 10*3/uL [facility] Eosinophils/100 WBC (Bld) 1.7 % 1.0 - 6.0 % [facility] Erythrocyte distribution width (RBC) [Ratio] 12.6 % 11.5 - 14.5 % [facility] Hematocrit (Bld) [Volume fraction] 35.5 % 35.0 - 47.0 % [facility] Hemoglobin (Bld) [Mass/Vol] 11.9 g/dL 11.7 - 16.0 g/dL [facility] Interpretation and review of laboratory results Abnormal [facility] Lymphocytes (Bld) [#/Vol] 1.2 10*3/uL 1.0 - 4.3 10*3/uL [facility] Lymphocytes/100 WBC (Bld) 33.1 % 20.0 - 40.0 % [facility] MCH (RBC) [Entitic mass] 33.3 pg 26. 0 - 34.0 pg [facility] MCHC (RBC) [Mass/Vol] 33.4 % 32.0 - 36.0 % [facility] MCV (RBC) [Entitic vol] 99.6 fL High 80.0 - 98.0 fL [facility] Monocytes (Bld) [#/Vol] 0.3 10*3/uL 0.0 - 0.8 10*3/uL [facility] Monocytes/100 WBC (Bld) 7.6 % 2.0 - 10.0 % [facility] Neutrophils (Bld) [#/Vol] 2.1 10*3/uL 1.8 - 7.0 10*3/uL [facility] Neutrophils/100 WBC (Bld) 57.0 % 40.0 - 80.0 % [facility] Nucleated RBC/100 WBC (Bld) [Ratio] 0.0 % [facility] Platelet mean volume (Bld) [Entitic vol] 8.1 fL 7.4 - 12.4 fL [facility] Platelets (Bld) [#/Vol] 201 10*3/uL 140 - 440 10*3/uL [facility] RBC (Bld) [#/Vol] 3.57 10*6/uL Low 3.8 - 5.20 10*6/uL [facility] WBC (Bld) [#/Vol] 3.7 10*3/uL 3.6 - 10.7 10*3/uL [facility] Comprehensive metabolic 1998 panelon 04-07-2023 Albumin [Mass/Vol] 4.3 g/dL 3.5 - 5.0 g/dL [facility] ALP [Catalytic activity/Vol] 94 U/L 38 - 126 U/L [facility] ALT [Catalytic activity/Vol] 22 U/L 0 - 34 U/L [facility] Anion gap [Moles/Vol] 8 mmol/L 3 - 13 mmol/L [facility] AST [Catalytic activity/Vol] 32 U/L 15 - 46 U/L [facility] Bilirubin [Mass/Vol] 0.4 mg/dL 0.2 - 1 .3 mg/dL [facility] Calcium [Mass/Vol] 8.8 mg/dL 8.4 - 10. 4 mg/dL [facility] Chloride [Moles/Vol] 102 mmol/L 98 - 10 7 mmol/L [facility] CO2 [Moles/Vol] 27 mmol/L 22 - 30 mmol/L [facility] Creatinine [Mass/Vol] 0.79 mg/dL 0.52 - 1.04 mg/dL [facility] GFR/1.73 sq M.predicted MDRD (S/P/Bld) [Vol rate/Area] 80.6 mL/min/{1.73_m2} - PINF [facility] Comment on above: Calculation based on the Chronic Kidney Disease Epidemiology Collaboration (CKD-EPI) equation refit without adjustment for race Glucose [Mass/Vol] 96 mg/dL 70 - 100 mg/dL [facility] Interpretation and review of laboratory results Abnormal [facility] Potassium [Moles/Vol] 4.0 mmol/L 3.5 - 5.1 mmol/L [facility] Protein [Mass/Vol] 7.6 g/dL 6.3 - 8.2 g/dL [facility] Sodium [Moles/Vol] 136 mmol/L 135 - 145 mmol/L [facility] Urea nitrogen [Mass/Vol] 19 mg/dL High 7 - 17 mg/dL [facility] CA 125on 02-27-2023 Cancer Ag 125 Qn 12.8 [arb'U]/mL 0.0 - 35 .0 U/mL [facility] Interpretation and review of laboratory results Normal [facility] Results obtained by different methods should not be used interchangeably. The CA 125 result is based on a new assay and the results may not be comparable with assays run prior to 12/13/2022. [facility] CBC W Auto Differential pane l (Bld)Ordered By: Luis M Riley on 02-24-2023 Basophils (Bld) [#/Vol] 0.0 10*3/uL 0.0 - 0.2 10*3/uL [facility] Basophils/100 WBC (Bld) 0.6 % 0.0 - 2.0 % [facility] Eosinophils (Bld) [#/Vol] 0.1 10*3/uL 0.0 - 0.5 10*3/uL [facility] Eosinophils/100 WBC (Bld) 1.6 % 1.0 - 6.0 % [facility] Erythrocyte distribution width (RBC) [Ratio] 12.8 % 11.5 - 14.5 % [facility] Hematocrit (Bld) [Volume fraction] 32.2 % Low 35.0 - 47.0 % [facility] Hemoglobin (Bld) [Mass/Vol] 10.7 g/dL Low 11.7 - 16.0 g/dL [facility] Interpretation and review of laboratory results Abnormal [facility] Lymphocytes (Bld) [#/Vol] 1.1 10*3/uL 1.0 - 4.3 10*3/uL [facility] Lymphocytes/100 WBC (Bld) 28.5 % 20.0 - 40.0 % [facility] MCH (RBC) [Entitic mass] 33.4 pg 26. 0 - 34.0 pg [facility] MCHC (RBC) [Mass/Vol] 33.2 % 32.0 - 36.0 % [facility] MCV (RBC) [Entitic vol] 100.6 fL High 80.0 - 98.0 fL [facility] Monocytes (Bld) [#/Vol] 0.3 10*3/uL 0.0 - 0.8 10*3/uL [facility] Monocytes/100 WBC (Bld) 7.6 % 2.0 - 10.0 % [facility] Neutrophils (Bld) [#/Vol] 2.5 10*3/uL 1.8 - 7.0 10*3/uL [facility] Neutrophils/100 WBC (Bld) 61.7 % 40.0 - 80.0 % [facility] Nucleated RBC/100 WBC (Bld) [Ratio] 0.0 % [facility] Platelet mean volume (Bld) [Entitic vol] 8.2 fL 7.4 - 12.4 fL [facility] Platelets (Bld) [#/Vol] 187 10*3/uL 140 - 440 10*3/uL [facility] RBC (Bld) [#/Vol] 3.20 10*6/uL Low 3.8 - 5.20 10*6/uL [facility] WBC (Bld) [#/Vol] 4.0 10*3/uL 3.6 - 10.7 10*3/uL [facility] Comprehensive metabolic 1998 panelon 02-24-2023 Albumin [Mass/Vol] 4.2 g/dL 3.5 - 5.0 g/dL [facility] ALP [Catalytic activity/Vol] 96 U/L 38 - 126 U/L [facility] ALT [Catalytic activity/Vol] 24 U/L 0 - 34 U/L [facility] Anion gap [Moles/Vol] 8 mmol/L 3 - 13 mmol/L [facility] AST [Catalytic activity/Vol] 35 U/L 15 - 46 U/L [facility] Bilirubin [Mass/Vol] 0.5 mg/dL 0.2 - 1 .3 mg/dL [facility] Calcium [Mass/Vol] 8.7 mg/dL 8.4 - 10. 4 mg/dL [facility] Chloride [Moles/Vol] 101 mmol/L 98 - 10 7 mmol/L [facility] CO2 [Moles/Vol] 28 mmol/L 22 - 30 mmol/L [facility] Creatinine [Mass/Vol] 0.84 mg/dL 0.52 - 1.04 mg/dL [facility] GFR/1.73 sq M.predicted MDRD (S/P/Bld) [Vol rate/Area] 74.9 mL/min/{1.73_m2} - PINF [facility] Comment on above: Calculation based on the Chronic Kidney Disease Epidemiology Collaboration (CKD-EPI) equation refit without adjustment for race Glucose [Mass/Vol] 84 mg/dL 70 - 100 mg/dL [facility] Interpretation and review of laboratory results Abnormal [facility] Potassium [Moles/Vol] 3.9 mmol/L 3.5 - 5.1 mmol/L [facility] Protein [Mass/Vol] 7.5 g/dL 6.3 - 8.2 g/dL [facility] Sodium [Moles/Vol] 137 mmol/L 135 - 145 mmol/L [facility] Urea nitrogen [Mass/Vol] 20 mg/dL High 7 - 17 mg/dL [facility] CA 125on 02-06-2023 Cancer Ag 125 Qn 12.4 [arb'U]/mL 0.0 - 35 .0 U/mL [facility] Interpretation and review of laboratory results Normal [facility] Results obtained by different methods should not be used interchangeably. The CA 125 result is based on a new assay and the results may not be comparable with assays run prior to 12/13/2022. [facility] CBC W Auto Differential pane l (Bld)Ordered By: Mary Sexton on 02-03-2023 Basophils (Bld) [#/Vol] 0.0 10*3/uL 0.0 - 0.2 10*3/uL [facility] Basophils/100 WBC (Bld) 0.6 % 0.0 - 2.0 % [facility] Eosinophils (Bld) [#/Vol] 0.0 10*3/uL 0.0 - 0.5 10*3/uL [facility] Eosinophils/100 WBC (Bld) 1.1 % 1.0 - 6.0 % [facility] Erythrocyte distribution width (RBC) [Ratio] 12.9 % 11.5 - 14.5 % [facility] Hematocrit (Bld) [Volume fraction] 32.7 % Low 35.0 - 47.0 % [facility] Hemoglobin (Bld) [Mass/Vol] 11.2 g/dL Low 11.7 - 16.0 g/dL [facility] Interpretation and review of laboratory results Abnormal [facility] Lymphocytes (Bld) [#/Vol] 1.1 10*3/uL 1.0 - 4.3 10*3/uL [facility] Lymphocytes/100 WBC (Bld) 29.1 % 20.0 - 40.0 % [facility] MCH (RBC) [Entitic mass] 34.3 pg High 26. 0 - 34.0 pg [facility] MCHC (RBC) [Mass/Vol] 34.2 % 32.0 - 36.0 % [facility] MCV (RBC) [Entitic vol] 100.4 fL High 80.0 - 98.0 fL [facility] Monocytes (Bld) [#/Vol] 0.2 10*3/uL 0.0 - 0.8 10*3/uL [facility] Monocytes/100 WBC (Bld) 6.4 % 2.0 - 10.0 % [facility] Neutrophils (Bld) [#/Vol] 2.4 10*3/uL 1.8 - 7.0 10*3/uL [facility] Neutrophils/100 WBC (Bld) 62.8 % 40.0 - 80.0 % [facility] Nucleated RBC/100 WBC (Bld) [Ratio] 0.0 % [facility] Platelet mean volume (Bld) [Entitic vol] 8.8 fL 7.4 - 12.4 fL [facility] Platelets (Bld) [#/Vol] 226 10*3/uL 140 - 440 10*3/uL [facility] RBC (Bld) [#/Vol] 3.25 10*6/uL Low 3.8 - 5.20 10*6/uL [facility] WBC (Bld) [#/Vol] 3.9 10*3/uL 3.6 - 10.7 10*3/uL [facility] Comprehensive metabolic 1998 panelon 02-03-2023 Albumin [Mass/Vol] 4.4 g/dL 3.5 - 5.0 g/dL [facility] ALP [Catalytic activity/Vol] 96 U/L 38 - 126 U/L [facility] ALT [Catalytic activity/Vol] 22 U/L 0 - 34 U/L [facility] Anion gap [Moles/Vol] 7 mmol/L 3 - 13 mmol/L [facility] AST [Catalytic activity/Vol] 33 U/L 15 - 46 U/L [facility] Bilirubin [Mass/Vol] 0.6 mg/dL 0.2 - 1 .3 mg/dL [facility] Calcium [Mass/Vol] 8.9 mg/dL 8.4 - 10. 4 mg/dL [facility] Chloride [Moles/Vol] 101 mmol/L 98 - 10 7 mmol/L [facility] CO2 [Moles/Vol] 30 mmol/L 22 - 30 mmol/L [facility] Creatinine [Mass/Vol] 0.77 mg/dL 0.52 - 1.04 mg/dL [facility] GFR/1.73 sq M.predicted MDRD (S/P/Bld) [Vol rate/Area] 83.1 mL/min/{1.73_m2} - PINF [facility] Comment on above: Calculation based on the Chronic Kidney Disease Epidemiology Collaboration (CKD-EPI) equation refit without adjustment for race Glucose [Mass/Vol] 94 mg/dL 70 - 100 mg/dL [facility] Interpretation and review of laboratory results Abnormal [facility] Potassium [Moles/Vol] 3.9 mmol/L 3.5 - 5.1 mmol/L [facility] Protein [Mass/Vol] 7.7 g/dL 6.3 - 8.2 g/dL [facility] Sodium [Moles/Vol] 138 mmol/L 135 - 145 mmol/L [facility] Urea nitrogen [Mass/Vol] 18 mg/dL High 7 - 17 mg/dL [facility] [employer] [facility] XR Femur - left 2 Viewson 1. No significant finding. Report Dictated on Electronically Signed By: Nithin Ivan MD Electronically Signed Date/Time: 02/03/2023 7:00 PM EST [facility] Patient Name: CARY SWENSON : 1950 Exam Date/Time: 02/03/2023 16:41 Procedure: XR FEMUR 2+ VW LEFT Ordering Provider: DREW COLLEEN Reason For Exam: femur pain LEFT FEMUR TWO VIEWS CLINICAL INDICATION: femur pain TECHNIQUE: Two views of the left femur. COMPARISON: None FINDINGS: Joint spaces are maintained. No acute fracture, dislocation, or acute bone destruction. No foreign body seen. [facility] Nithin Ivan MD - 02/03/2023 Patient Name: CARY SWENSON : 1950 Exam Date/Time: 02/03/2023 16:41 Procedure: XR FEMUR 2+ VW LEFT Ordering Provider: DREW COLLEEN Reason For Exam: femur pain LEFT FEMUR TWO VIEWS CLINICAL INDICATION: femur pain TECHNIQUE: Two views of the left femur. COMPARISON: None FINDINGS: Joint spaces are maintained. No acute fracture, dislocation, or acute bone destruction. No foreign body seen. IMPRESSION: 1. No significant finding. Report Dictated on Electronically Signed By: Nithin Ivan MD Electronically Signed Date/Time: 02/03/2023 7:00 PM EST [facility] [employer] Radiology Study observation (narrative) [facility] XR Femur - left 2 ViewsOrder ed By: Nithin Ivan on 02-03-2023 [employer] Work Phone: XR Hip - left 3 Viewson 01-25 1. No acute finding. Lower lumbar degenerative changes. Report Dictated on Electronically Signed By: Nithin Ivan MD Electronically Signed Date/Time: 02/03/2023 6:59 PM EST [facility] Patient Name: CARY SWENSON : 1950 Exam Date/Time: 02/03/2023 16:41 Procedure: XR HIP 2 OR 3 VW LEFT Ordering Provider: DREW COLLEEN Reason For Exam: hip pain SINGLE VIEW OF THE PELVIS AND TWO VIEWS OF THE LEFT HIP CLINICAL INDICATION: hip pain TECHNIQUE: Single view of the pelvis and two views of the left hip. COMPARISON: None FINDINGS: Pelvis: Degenerative changes at L4-L5. SI joints and pubic symphysis appear intact. Bilateral hip joint spaces appear normal. Femoral head and femoral neck appear normal bilaterally. No acute fracture or dislocation seen. Left hip: Left hip joint space appears normal. Left femoral head and neck appear normal. No fracture or dislocation seen. [facility] Nithin Ivan MD - 02/03/2023 Patient Name: CARY SWENSON : 1950 Exam Date/Time: 02/03/2023 16:41 Procedure: XR HIP 2 OR 3 VW LEFT Ordering Provider: DREW COLLEEN Reason For Exam: hip pain SINGLE VIEW OF THE PELVIS AND TWO VIEWS OF THE LEFT HIP CLINICAL INDICATION: hip pain TECHNIQUE: Single view of the pelvis and two views of the left hip. COMPARISON: None FINDINGS: Pelvis: Degenerative changes at L4-L5. SI joints and pubic symphysis appear intact. Bilateral hip joint spaces appear normal. Femoral head and femoral neck appear normal bilaterally. No acute fracture or dislocation seen. Left hip: Left hip joint space appears normal. Left femoral head and neck appear normal. No fracture or dislocation seen. IMPRESSION: 1. No acute finding. Lower lumbar degenerative changes. Report Dictated on Electronically Signed By: Nithin Ivan MD Electronically Signed Date/Time: 02/03/2023 6:59 PM EST [facility] Radiology Study observation (narrative) [facility] XR Hip - left 3 ViewsOrdered By: Nithin Ivan on 02-03-2023 [employer] Work Phone: Lipid 1996 panelon 3 Cholesterol [Mass/Vol] 246 mg/dL [facility] Cholesterol in HDL [Mass/Vol] 53 mg/dL > OR = 50 [facility] Cholesterol in LDL [Mass/Vol] 174 mg/dL High mg/dL (calc) [facility] Comment on above: Reference range: <10 0 Desirable range <100 mg/dL for primary prevention; <70 mg/dL for patients with CHD or diabetic patients with > or = 2 CHD risk factors. LDL-C is now calculated using the Ambrocio-Elvis calculation, which is a validated novel method providing better accuracy than the Friedewald equation in the estimation of LDL-C. Ambrocio SS et al. ARLETTE. 2013;310(19): 6929-4967 (http://MobileRQ.Interact.io/faq/AMO301) Cholesterol non HDL [Mass/Vol] 193 mg/dL High [facility] Comment on above: For patients with di abetes plus 1 major ASCVD risk factor, treating to a non-HDL-C goal of <100 mg/dL (LDL-C of <70 mg/dL) is considered a therapeutic option. Cholesterol.total/Choles terol in HDL [Mass ratio] 4.6 {ratio} [facility] Interpretation and review of laboratory results Abnormal [facility] Triglyceride [Mass/Vol] 83 mg/dL [facility] - 150 mg/dL [facility] [place] 125on 01-16-2023 Cancer Ag 125 Qn 11.0 [arb'U]/mL 0.0 - 35 .0 U/mL [facility] Interpretation and review of laboratory results Normal [facility] Results obtained by different methods should not be used interchangeably. The CA 125 result is based on a new assay and the results may not be comparable with assays run prior to 12/13/2022. [facility] CBC W Auto Differential pane l (Bld)Ordered By: Luis M Riley on 01-13-2023 Basophils (Bld) [#/Vol] 0.0 10*3/uL 0.0 - 0.2 10*3/uL [facility] Basophils/100 WBC (Bld) 0.6 % 0.0 - 2.0 % [facility] Eosinophils (Bld) [#/Vol] 0.0 10*3/uL 0.0 - 0.5 10*3/uL [facility] Eosinophils/100 WBC (Bld) 1.3 % 1.0 - 6.0 % [facility] Erythrocyte distribution width (RBC) [Ratio] 13.2 % 11.5 - 14.5 % [facility] Hematocrit (Bld) [Volume fraction] 33.2 % Low 35.0 - 47.0 % [facility] Hemoglobin (Bld) [Mass/Vol] 11.3 g/dL Low 11.7 - 16.0 g/dL [facility] Interpretation and review of laboratory results Abnormal [facility] Lymphocytes (Bld) [#/Vol] 1.1 10*3/uL 1.0 - 4.3 10*3/uL [facility] Lymphocytes/100 WBC (Bld) 32.1 % 20.0 - 40.0 % [facility] MCH (RBC) [Entitic mass] 34.4 pg High 26. 0 - 34.0 pg [facility] MCHC (RBC) [Mass/Vol] 34.1 % 32.0 - 36.0 % [facility] MCV (RBC) [Entitic vol] 100.9 fL High 80.0 - 98.0 fL [facility] Monocytes (Bld) [#/Vol] 0.2 10*3/uL 0.0 - 0.8 10*3/uL [facility] Monocytes/100 WBC (Bld) 7.2 % 2.0 - 10.0 % [facility] Neutrophils (Bld) [#/Vol] 2.0 10*3/uL 1.8 - 7.0 10*3/uL [facility] Neutrophils/100 WBC (Bld) 58.8 % 40.0 - 80.0 % [facility] Nucleated RBC/100 WBC (Bld) [Ratio] 0.0 % [facility] Platelet mean volume (Bld) [Entitic vol] 8.0 fL 7.4 - 12.4 fL [facility] Platelets (Bld) [#/Vol] 214 10*3/uL 140 - 440 10*3/uL [facility] RBC (Bld) [#/Vol] 3.29 10*6/uL Low 3.8 - 5.20 10*6/uL [facility] WBC (Bld) [#/Vol] 3.4 10*3/uL Low 3.6 - 10.7 10*3/uL [facility] Comprehensive metabolic 1998 panelon 01-13-2023 Albumin [Mass/Vol] 4.4 g/dL 3.5 - 5.0 g/dL [facility] ALP [Catalytic activity/Vol] 92 U/L 38 - 126 U/L [facility] ALT [Catalytic activity/Vol] 24 U/L 0 - 34 U/L [facility] Anion gap [Moles/Vol] 7 mmol/L 3 - 13 mmol/L [facility] AST [Catalytic activity/Vol] 35 U/L 15 - 46 U/L [facility] Bilirubin [Mass/Vol] 0.7 mg/dL 0.2 - 1 .3 mg/dL [facility] Calcium [Mass/Vol] 8.8 mg/dL 8.4 - 10. 4 mg/dL [facility] Chloride [Moles/Vol] 103 mmol/L 98 - 10 7 mmol/L [facility] CO2 [Moles/Vol] 29 mmol/L 22 - 30 mmol/L [facility] Creatinine [Mass/Vol] 0.82 mg/dL 0.52 - 1.04 mg/dL [facility] GFR/1.73 sq M.predicted MDRD (S/P/Bld) [Vol rate/Area] 77.1 mL/min/{1.73_m2} - PINF [facility] Comment on above: Calculation based on the Chronic Kidney Disease Epidemiology Collaboration (CKD-EPI) equation refit without adjustment for race Glucose [Mass/Vol] 93 mg/dL 70 - 100 mg/dL [facility] Interpretation and review of laboratory results Abnormal [facility] Potassium [Moles/Vol] 4.0 mmol/L 3.5 - 5.1 mmol/L [facility] Protein [Mass/Vol] 7.8 g/dL 6.3 - 8.2 g/dL [facility] Sodium [Moles/Vol] 138 mmol/L 135 - 145 mmol/L [facility] Urea nitrogen [Mass/Vol] 18 mg/dL High 7 - 17 mg/dL [facility] CBC W Auto Differential pane l (Bld)Ordered By: Luis M Riley on 12-02-2022 Basophils (Bld) [#/Vol] 0.0 10*3/uL 0.0 - 0.2 10*3/uL [facility] Basophils/100 WBC (Bld) 0.6 % 0.0 - 2.0 % [facility] Eosinophils (Bld) [#/Vol] 0.1 10*3/uL 0.0 - 0.5 10*3/uL [facility] Eosinophils/100 WBC (Bld) 1.5 % 1.0 - 6.0 % [facility] Erythrocyte distribution width (RBC) [Ratio] 12.4 % 11.5 - 14.5 % [facility] Hematocrit (Bld) [Volume fraction] 34.2 % Low 35.0 - 47.0 % [facility] Hemoglobin (Bld) [Mass/Vol] 11.6 g/dL Low 11.7 - 16.0 g/dL [facility] Interpretation and review of laboratory results Abnormal [facility] Lymphocytes (Bld) [#/Vol] 1.0 10*3/uL 1.0 - 4.3 10*3/uL [facility] Lymphocytes/100 WBC (Bld) 27.4 % 20.0 - 40.0 % [facility] MCH (RBC) [Entitic mass] 34.7 pg High 26. 0 - 34.0 pg [facility] MCHC (RBC) [Mass/Vol] 33.8 % 32.0 - 36.0 % [facility] MCV (RBC) [Entitic vol] 102.5 fL High 80.0 - 98.0 fL [facility] Monocytes (Bld) [#/Vol] 0.3 10*3/uL 0.0 - 0.8 10*3/uL [facility] Monocytes/100 WBC (Bld) 7.3 % 2.0 - 10.0 % [facility] Neutrophils (Bld) [#/Vol] 2.3 10*3/uL 1.8 - 7.0 10*3/uL [facility] Neutrophils/100 WBC (Bld) 63.2 % 40.0 - 80.0 % [facility] Nucleated RBC/100 WBC (Bld) [Ratio] 0.1 % [facility] Platelet mean volume (Bld) [Entitic vol] 7.9 fL 7.4 - 12.4 fL [facility] Platelets (Bld) [#/Vol] 212 10*3/uL 140 - 440 10*3/uL [facility] RBC (Bld) [#/Vol] 3.33 10*6/uL Low 3.8 - 5.20 10*6/uL [facility] WBC (Bld) [#/Vol] 3.7 10*3/uL 3.6 - 10.7 10*3/uL [facility] Comprehensive metabolic 1998 panelon 12-02-2022 Albumin [Mass/Vol] 4.4 g/dL 3.5 - 5.0 g/dL [facility] ALP [Catalytic activity/Vol] 93 U/L 38 - 126 U/L [facility] ALT [Catalytic activity/Vol] 24 U/L 0 - 34 U/L [facility] Anion gap [Moles/Vol] 10 mmol/L 3 - 13 mmol/L [facility] AST [Catalytic activity/Vol] 32 U/L 15 - 46 U/L [facility] Bilirubin [Mass/Vol] 0.6 mg/dL 0.2 - 1 .3 mg/dL [facility] Calcium [Mass/Vol] 9.1 mg/dL 8.4 - 10. 4 mg/dL [facility] Chloride [Moles/Vol] 104 mmol/L 98 - 10 7 mmol/L [facility] CO2 [Moles/Vol] 26 mmol/L 22 - 30 mmol/L [facility] Creatinine [Mass/Vol] 0.83 mg/dL 0.52 - 1.04 mg/dL [facility] GFR/1.73 sq M.predicted MDRD (S/P/Bld) [Vol rate/Area] 75.9 mL/min/{1.73_m2} - PINF [facility] Comment on above: Calculation based on the Chronic Kidney Disease Epidemiology Collaboration (CKD-EPI) equation refit without adjustment for race Glucose [Mass/Vol] 104 mg/dL High 70 - 100 mg/dL [facility] Interpretation and review of laboratory results Abnormal [facility] Potassium [Moles/Vol] 3.8 mmol/L 3.5 - 5.1 mmol/L [facility] Protein [Mass/Vol] 7.6 g/dL 6.3 - 8.2 g/dL [facility] Sodium [Moles/Vol] 140 mmol/L 135 - 145 mmol/L [facility] Urea nitrogen [Mass/Vol] 20 mg/dL High 7 - 17 mg/dL [facility] CBC W Auto Differential pane l (Bld)Ordered By: Marichuy Arrieta on 11-11-2022 Basophils (Bld) [#/Vol] 0.0 10*3/uL 0.0 - 0.2 10*3/uL [facility] Basophils/100 WBC (Bld) 0.5 % 0.0 - 2.0 % [facility] Eosinophils (Bld) [#/Vol] 0.0 10*3/uL 0.0 - 0.5 10*3/uL [facility] Eosinophils/100 WBC (Bld) 1.4 % 1.0 - 6.0 % [facility] Erythrocyte distribution width (RBC) [Ratio] 12.1 % 11.5 - 14.5 % [facility] Hematocrit (Bld) [Volume fraction] 33.0 % Low 35.0 - 47.0 % [facility] Hemoglobin (Bld) [Mass/Vol] 11.2 g/dL Low 11.7 - 16.0 g/dL [facility] Interpretation and review of laboratory results Abnormal [facility] Lymphocytes (Bld) [#/Vol] 1.1 10*3/uL 1.0 - 4.3 10*3/uL [facility] Lymphocytes/100 WBC (Bld) 30.2 % 20.0 - 40.0 % [facility] MCH (RBC) [Entitic mass] 35.2 pg High 26. 0 - 34.0 pg [facility] MCHC (RBC) [Mass/Vol] 34.0 % 32.0 - 36.0 % [facility] MCV (RBC) [Entitic vol] 103.6 fL High 80.0 - 98.0 fL [facility] Monocytes (Bld) [#/Vol] 0.3 10*3/uL 0.0 - 0.8 10*3/uL [facility] Monocytes/100 WBC (Bld) 7.6 % 2.0 - 10.0 % [facility] Neutrophils (Bld) [#/Vol] 2.1 10*3/uL 1.8 - 7.0 10*3/uL [facility] Neutrophils/100 WBC (Bld) 60.3 % 40.0 - 80.0 % [facility] Nucleated RBC/100 WBC (Bld) [Ratio] 0.1 % [facility] Platelet mean volume (Bld) [Entitic vol] 8.3 fL 7.4 - 12.4 fL [facility] Platelets (Bld) [#/Vol] 205 10*3/uL 140 - 440 10*3/uL [facility] RBC (Bld) [#/Vol] 3.18 10*6/uL Low 3.8 - 5.20 10*6/uL [facility] WBC (Bld) [#/Vol] 3.5 10*3/uL Low 3.6 - 10.7 10*3/uL [facility] Comprehensive metabolic 1998 panelon 11-11-2022 Albumin [Mass/Vol] 4.5 g/dL 3.5 - 5.0 g/dL [facility] ALP [Catalytic activity/Vol] 98 U/L 38 - 126 U/L [facility] ALT [Catalytic activity/Vol] 25 U/L 0 - 34 U/L [facility] Anion gap [Moles/Vol] 10 mmol/L 3 - 13 mmol/L [facility] AST [Catalytic activity/Vol] 33 U/L 15 - 46 U/L [facility] Bilirubin [Mass/Vol] 0.5 mg/dL 0.2 - 1 .3 mg/dL [facility] Calcium [Mass/Vol] 8.7 mg/dL 8.4 - 10. 4 mg/dL [facility] Chloride [Moles/Vol] 103 mmol/L 98 - 10 7 mmol/L [facility] CO2 [Moles/Vol] 26 mmol/L 22 - 30 mmol/L [facility] Creatinine [Mass/Vol] 0.86 mg/dL 0.52 - 1.04 mg/dL [facility] GFR/1.73 sq M.predicted MDRD (S/P/Bld) [Vol rate/Area] 73.2 mL/min/{1.73_m2} - PINF [facility] Comment on above: Calculation based on the Chronic Kidney Disease Epidemiology Collaboration (CKD-EPI) equation refit without adjustment for race Glucose [Mass/Vol] 96 mg/dL 70 - 100 mg/dL [facility] Interpretation and review of laboratory results Abnormal [facility] Potassium [Moles/Vol] 4.1 mmol/L 3.5 - 5.1 mmol/L [facility] Protein [Mass/Vol] 7.5 g/dL 6.3 - 8.2 g/dL [facility] Sodium [Moles/Vol] 139 mmol/L 135 - 145 mmol/L [facility] Urea nitrogen [Mass/Vol] 19 mg/dL High 7 - 17 mg/dL [facility] [place] 125on 10-22-2022 Cancer Ag 125 Qn 6.4 [arb'U]/mL 0.0 - 35. 0 U/mL [facility] Interpretation and review of laboratory results Normal [facility] Testing performed on the [employer] 5600 using an immunometric methodology. Results obtained by different methods should not be used interchangeably. [facility] CA 125on 09-08-2022 Cancer Ag 125 Qn 5.6 [arb'U]/mL 0.0 - 35. 0 U/mL [facility] Interpretation and review of laboratory results Normal [facility] Testing performed on the [employer] 5600 using an immunometric methodology. Results obtained by different methods should not be used interchangeably. [facility] CBC W Auto Differential pane l (Bld)Ordered By: Yaquelin Nair on 09-08-2022 Basophils (Bld) [#/Vol] 0.0 10*3/uL 0.0 - 0.2 10*3/uL [facility] Basophils/100 WBC (Bld) 0.6 % 0.0 - 2.0 % [facility] Eosinophils (Bld) [#/Vol] 0.1 10*3/uL 0.0 - 0.5 10*3/uL [facility] Eosinophils/100 WBC (Bld) 1.7 % 1.0 - 6.0 % [facility] Erythrocyte distribution width (RBC) [Ratio] 13.5 % 11.5 - 14.5 % [facility] Hematocrit (Bld) [Volume fraction] 29.5 % Low 35.0 - 47.0 % [facility] Hemoglobin (Bld) [Mass/Vol] 9.8 g/dL Low 11.7 - 16.0 g/dL [facility] Interpretation and review of laboratory results Abnormal [facility] Lymphocytes (Bld) [#/Vol] 1.1 10*3/uL 1.0 - 4.3 10*3/uL [facility] Lymphocytes/100 WBC (Bld) 33.0 % 20.0 - 40.0 % [facility] MCH (RBC) [Entitic mass] 37.0 pg High 26. 0 - 34.0 pg [facility] MCHC (RBC) [Mass/Vol] 33.2 % 32.0 - 36.0 % [facility] MCV (RBC) [Entitic vol] 111.6 fL High 80.0 - 98.0 fL [facility] Comment on above: I-Macrocytosis Monocytes (Bld) [#/Vol] 0.3 10*3/uL 0.0 - 0.8 10*3/uL [facility] Monocytes/100 WBC (Bld) 7.9 % 2.0 - 10.0 % [facility] Neutrophils (Bld) [#/Vol] 1.9 10*3/uL 1.8 - 7.0 10*3/uL [facility] Neutrophils/100 WBC (Bld) 56.8 % 40.0 - 80.0 % [facility] Nucleated RBC/100 WBC (Bld) [Ratio] 0.1 % [facility] Platelet mean volume (Bld) [Entitic vol] 7.7 fL 7.4 - 12.4 fL [facility] Platelets (Bld) [#/Vol] 207 10*3/uL 140 - 440 10*3/uL [facility] RBC (Bld) [#/Vol] 2.64 10*6/uL Low 3.8 - 5.20 10*6/uL [facility] WBC (Bld) [#/Vol] 3.3 10*3/uL Low 3.6 - 10.7 10*3/uL [facility] Comprehensive metabolic 1998 panelon 09-08-2022 Albumin [Mass/Vol] 4.3 g/dL 3.5 - 5.0 g/dL [facility] ALP [Catalytic activity/Vol] 95 U/L 38 - 126 U/L [facility] ALT [Catalytic activity/Vol] 23 U/L 0 - 34 U/L [facility] Anion gap [Moles/Vol] 4 mmol/L 3 - 13 mmol/L [facility] AST [Catalytic activity/Vol] 34 U/L 15 - 46 U/L [facility] Bilirubin [Mass/Vol] 0.5 mg/dL 0.2 - 1 .3 mg/dL [facility] Calcium [Mass/Vol] 8.8 mg/dL 8.4 - 10. 4 mg/dL [facility] Chloride [Moles/Vol] 106 mmol/L 98 - 10 7 mmol/L [facility] CO2 [Moles/Vol] 27 mmol/L 22 - 30 mmol/L [facility] Creatinine [Mass/Vol] 0.75 mg/dL 0.52 - 1.04 mg/dL [facility] GFR/1.73 sq M.predicted MDRD (S/P/Bld) [Vol rate/Area] 86.3 mL/min/{1.73_m2} - PINF [facility] Comment on above: Calculation based on the Chronic Kidney Disease Epidemiology Collaboration (CKD-EPI) equation refit without adjustment for race Glucose [Mass/Vol] 94 mg/dL 70 - 100 mg/dL [facility] Interpretation and review of laboratory results Normal [facility] Potassium [Moles/Vol] 3.6 mmol/L 3.5 - 5.1 mmol/L [facility] Protein [Mass/Vol] 7.6 g/dL 6.3 - 8.2 g/dL [facility] Sodium [Moles/Vol] 138 mmol/L 135 - 145 mmol/L [facility] Urea nitrogen [Mass/Vol] 17 mg/dL 7 - 17 mg/dL [facility] Absolute lymphocyte countOrd ered By: Dr. Richey on 08-18-2022 Lymphocytes Auto (Unsp spec) [#/Vol] 0.91 10*3/uL 0.83-4.51 [facility] Basophil percentageOrdered B y: Dr. Richey on 08-18-2022 Basophils/100 WBC (Bld) 0.4 % 0-1 [facility] Bilirubin [Mass/Vol] 0.40 mg/dL 0.20-1.00 [facility] Comment on above: For patients on eltr ombopag therapy, use of Dimension [place] TBIL is not recommended. Chloride [Moles/Vol] 109 mmol/L 98-107 [facility] Eosinophils/100 WBC (Bld) 0.8 % 0-5 [facility] Glucose [Mass/Vol] 104 mg/dL 74-106 [facility] Comment on above: Fasting Glucose resu lt from 100 to 125 mg/dL suggests IMPAIRED HOMEOSTASIS per A.D.A. criteria. Neutrophils (Bld) [#/Vol] 1.3 10*3/uL 2.0-7.7 [facility] Neutrophils/100 WBC (Bld) 51.7 % 47-70 [facility] Potassium [Moles/Vol] 3.7 mmol/L 3.5-5.1 [facility] Protein [Mass/Vol] 7.1 g/dL 6.4-8.2 [facility] Sodium [Moles/Vol] 142 mmol/L 136-145 [facility] WBC (Bld) [#/Vol] 2.5 10*3/uL 4.4-11.0 [facility] Blood erythrocytes count (nu mber/volume)Ordered By: Dr. Richey on 08-18-2022 RBC (Bld) [#/Vol] 2.32 10*6/uL 4.2-5.4 [facility] Blood hemoglobin measurement (mass/volume)Ordered By: Dr. Richey on 08-18-2022 Hemoglobin (Bld) [Mass/Vol] 8.6 g/dL 12.0-15.0 [facility] Blood lymphocytes/100 leukoc ytesOrdered By: Dr. Richey on 08-18-2022 Lymphocytes/100 WBC (Bld) 36.0 % 19-41 [facility] Blood monocytes/100 leukocyt esOrdered By: Dr. Richey on 08-18-2022 Monocytes/100 WBC (Bld) 11.1 % 0-10 [facility] Blood platelet mean volumeOr dered By: Dr. Richey on 08-18-2022 Platelet mean volume (Bld) [Entitic vol] 9.7 fL 6.2-12.0 [facility] Determination of erythrocyte mean corpuscular volume (MCV)Ordered By: Dr. Richey on 08-18-2022 MCV (RBC) [Entitic vol] 114.7 fL 81-99 [facility] Hematocrit Auto (Bld) [Volum e fraction]Ordered By: Dr. Richey on 08-18-2022 Hematocrit (Bld) [Volume fraction] 26.6 % 37-47 [facility] Laboratory - Chemistry and C hemistry - challengeOrdered By: Dr. Richey on 08-18-2022 ALP [Catalytic activity/Vol] 99 U/L 45-117 [facility] ALT [Catalytic activity/Vol] 41 U/L 13-56 [facility] CO2 [Moles/Vol] 28.0 mmol/L 21.0-32.0 [facility] Globulin (S) [Mass/Vol] 3.4 g/dL 2.2-4.2 [facility] Urea nitrogen/Creatinine [Mass ratio] 21.4 mg/mg 10-20 [facility] Laboratory - Hematology and Cell countsOrdered By: Dr. Richey on 08-18-2022 Erythrocyte distribution width (RBC) [Entitic vol] 68.8 fL 35.1-43.9 [facility] Erythrocyte distribution width (RBC) [Ratio] 16.3 % 11.6-14.6 [facility] Immature granulocytes/100 WBC (Bld) 0.000 % 0.0-0.9 [facility] Comment on above: IG% - Immature Granu locytes (promyelocytes, myelocytes and metamyelocytes) > 1% indicates that a LEFT SHIFT is Present. MCH (RBC) [Entitic mass] 37.1 pg 27.0-32.0 [facility] Nucleated RBC/100 WBC (Bld) [Ratio] 0 % 0-5 [facility] MCHC Auto (RBC) [Mass/Vol]Or dered By: Dr. Richey on 08-18-2022 MCHC (RBC) [Mass/Vol] 32.3 g/dL 32-36 [facility] No Panel InformationOrdered By: Dr. Richey on 08-18-2022 CA 125 Antigen 13.1 U/mL 0.0-38.1 [facility] Comment on above: [facility] [place] ectrochemiluminescence Immunoassay(ECLIA)Values obtained with different assay methods or kits cannotbe used interchangeably. Results cannot be interpreted asabsolute evidence of the presence or absence of malignantdisease.Performed at: [facility] [id number] Director: Bucky Boothe PhD, Phone: [phone] Estimated GFR (MDRD) Amer 99 mL/min >60 [facility] Comment on above: GFR Calc Estimated GFR (MDRD) Non-Af Amer 82 mL/min >60 [facility] Comment on above: Non- GFR Calc Platelets bldOrdered By: Dr. Richey on 08-18-2022 Platelets (Bld) [#/Vol] 157 10*3/uL 150-450 [facility] Serum or plasma albumin tim urement (mass/volume)Ordered By: Dr. Richey on 08-18-2022 Albumin [Mass/Vol] 3.7 g/dL 3.2-5.0 [facility] Serum or plasma albumin/glob ulin mass ratioOrdered By: Dr. Richey on 08-18-2022 Albumin/Globulin [Mass ratio] 1.1 {ratio} 0.9-2.4 [facility] Serum or plasma calcium tim urement (mass/volume)Ordered By: Dr. Richey on 08-18-2022 Calcium [Mass/Vol] 8.4 mg/dL 8.5-10.1 [facility] Serum or plasma creatinine m easurement (mass/volume)Ordered By: Dr. Richey on 08-18-2022 Creatinine [Mass/Vol] 0.75 mg/dL 0.55-1.02 [facility] Comment on above: The validity of the calculated GFR & GFRAA in patients over 70 years has not been determined. Clinical correlation is essential. Serum or plasma urea nitroge n measurement (mass/volume)Ordered By: Dr. Richey on 08-18-2022 Urea nitrogen [Mass/Vol] 16 mg/dL 7-18 [facility] Thin prep Papanicolaou smear with manual screeningOrdered By: Dr. Richey on 08-18-2022 Thin prep Papanicolaou smear with manual screening 31 U/L 15-37 [facility] Thin prep Papanicolaou smear with manual screening 5 5-15 [facility] Laboratory - Hematology and Cell countsOrdered By: Dr. Richey on 07-28-2022 Anisocytosis Ql (Bld) 1+ [facility] Absolute lymphocyte countOrd ered By: Dr. Richey on 07-07-2022 Lymphocytes Auto (Unsp spec) [#/Vol] 0.93 10*3/uL 0.83-4.51 [facility] Basophil percentageOrdered B y: Dr. Richey on 07-07-2022 Basophils/100 WBC (Bld) 0.4 % 0-1 [facility] Bilirubin [Mass/Vol] 0.30 mg/dL 0.20-1.00 [facility] Comment on above: For patients on eltr ombopag therapy, use of Dimension [place] TBIL is not recommended. Chloride [Moles/Vol] 106 mmol/L 98-107 [facility] Eosinophils/100 WBC (Bld) 0.4 % 0-5 [facility] Glucose [Mass/Vol] 103 mg/dL 74-106 [facility] Comment on above: Fasting Glucose resu lt from 100 to 125 mg/dL suggests IMPAIRED HOMEOSTASIS per A.D.A. criteria. Neutrophils (Bld) [#/Vol] 1.3 10*3/uL 2.0-7.7 [facility] Neutrophils/100 WBC (Bld) 50.7 % 47-70 [facility] Potassium [Moles/Vol] 3.6 mmol/L 3.5-5.1 [facility] Protein [Mass/Vol] 7.1 g/dL 6.4-8.2 [facility] Sodium [Moles/Vol] 140 mmol/L 136-145 [facility] WBC (Bld) [#/Vol] 2.6 10*3/uL 4.4-11.0 [facility] Blood erythrocytes count (nu mber/volume)Ordered By: Dr. Richey on 07-07-2022 RBC (Bld) [#/Vol] 2.40 10*6/uL 4.2-5.4 [facility] Blood hemoglobin measurement (mass/volume)Ordered By: Dr. Richey on 07-07-2022 Hemoglobin (Bld) [Mass/Vol] 8.5 g/dL 12.0-15.0 [facility] Blood lymphocytes/100 leukoc ytesOrdered By: Dr. Richey on 07-07-2022 Lymphocytes/100 WBC (Bld) 35.5 % 19-41 [facility] Blood monocytes/100 leukocyt esOrdered By: Dr. Richey on 07-07-2022 Monocytes/100 WBC (Bld) 12.6 % 0-10 [facility] Blood platelet mean volumeOr dered By: Dr. Richey on 07-07-2022 Platelet mean volume (Bld) [Entitic vol] 9.6 fL 6.2-12.0 [facility] Determination of erythrocyte mean corpuscular volume (MCV)Ordered By: Dr. Richey on 07-07-2022 MCV (RBC) [Entitic vol] 104.2 fL 81-99 [facility] Hematocrit Auto (Bld) [Volum e fraction]Ordered By: Dr. Richey on 07-07-2022 Hematocrit (Bld) [Volume fraction] 25.0 % 37-47 [facility] Laboratory - Chemistry and C hemistry - challengeOrdered By: Dr. Richey on 07-07-2022 ALP [Catalytic activity/Vol] 89 U/L 45-117 [facility] ALT [Catalytic activity/Vol] 23 U/L 13-56 [facility] CO2 [Moles/Vol] 29.0 mmol/L 21.0-32.0 [facility] Globulin (S) [Mass/Vol] 3.7 g/dL 2.2-4.2 [facility] Urea nitrogen/Creatinine [Mass ratio] 18.9 mg/mg 10-20 [facility] Laboratory - Hematology and Cell countsOrdered By: Dr. Richey on 07-07-2022 Erythrocyte distribution width (RBC) [Entitic vol] 59.3 fL 35.1-43.9 [facility] Erythrocyte distribution width (RBC) [Ratio] 15.6 % 11.6-14.6 [facility] Immature granulocytes/100 WBC (Bld) 0.400 % 0.0-0.9 [facility] Comment on above: IG% - Immature Granu locytes (promyelocytes, myelocytes and metamyelocytes) > 1% indicates that a LEFT SHIFT is Present. MCH (RBC) [Entitic mass] 35.4 pg 27.0-32.0 [facility] Nucleated RBC/100 WBC (Bld) [Ratio] 0 % 0-5 [facility] MCHC Auto (RBC) [Mass/Vol]Or dered By: Dr. Richey on 07-07-2022 MCHC (RBC) [Mass/Vol] 34.0 g/dL 32-36 [facility] No Panel InformationOrdered By: Dr. Richey on 07-07-2022 CA 125 Antigen 15.0 U/mL 0.0-38.1 [facility] Comment on above: [facility] El ectrochemiluminescence Immunoassay(ECLIA)Values obtained with different assay methods or kits cannotbe used interchangeably. Results cannot be interpreted asabsolute evidence of the presence or absence of malignantdisease.Performed at: [employer] [id number] Director: Bucky Boothe PhD, Phone: [phone] Estimated GFR (MDRD) Amer 100 mL/min >60 [facility] Comment on above: GFR Calc Estimated GFR (MDRD) Non-Af Amer 82 mL/min >60 [facility] Comment on above: Non- GFR Calc Platelets bldOrdered By: Dr. Richey on 07-07-2022 Platelets (Bld) [#/Vol] 111 10*3/uL 150-450 [facility] Serum or plasma albumin tim urement (mass/volume)Ordered By: Dr. Richey on 07-07-2022 Albumin [Mass/Vol] 3.4 g/dL 3.2-5.0 [facility] Serum or plasma albumin/glob ulin mass ratioOrdered By: Dr. Richey on 07-07-2022 Albumin/Globulin [Mass ratio] 0.9 {ratio} 0.9-2.4 [facility] Serum or plasma calcium tim urement (mass/volume)Ordered By: Dr. Richey on 07-07-2022 Calcium [Mass/Vol] 8.3 mg/dL 8.5-10.1 [facility] Serum or plasma creatinine m easurement (mass/volume)Ordered By: Dr. Richey on 07-07-2022 Creatinine [Mass/Vol] 0.74 mg/dL 0.55-1.02 [facility] Comment on above: The validity of the calculated GFR & GFRAA in patients over 70 years has not been determined. Clinical correlation is essential. Serum or plasma urea nitroge n measurement (mass/volume)Ordered By: Dr. Richey on 07-07-2022 Urea nitrogen [Mass/Vol] 14 mg/dL 7-18 [facility] Thin prep Papanicolaou smear with manual screeningOrdered By: Dr. Richey on 07-07-2022 Thin prep Papanicolaou smear with manual screening 19 U/L 15-37 [facility] Thin prep Papanicolaou smear with manual screening 5 5-15 [facility] Laboratory - Microbiology an d Antimicrobial susceptibilityOrdered By: Dr. White on 07-06-2022 Bacteria identified Cx Nom (Bld) No growth in 5 days. [facility] - Microbiology an d Antimicrobial susceptibilityOrdered By: Dr. Hay on 07-05-2022 Respiratory pathogens DNA and RNA 12b panel NICOLE+probe (Unsp spec) [facility] Culture, urineOrdered By: Dr Terri White on 07-03-2022 Bacteria identified Cx Nom (U) Culture exhibits no growth. [facility] Throat Streptococcus pyogene s antigen detection by immunofluorescenceOrdered By: Dr. White on 07-03-2022 S. pyogenes Ag IF Ql (Throat) [facility] Absolute lymphocyte countOrd ered By: Dr. Hay on 07-02-2022 Lymphocytes Auto (Unsp spec) [#/Vol] 1.13 10*3/uL 0.83-4.51 [facility] Basophil percentageOrdered B y: Dr. Hay on 07-02-2022 Basophils/100 WBC (Bld) 0.3 % 0-1 [facility] Bilirubin [Mass/Vol] 0.30 mg/dL 0.20-1.00 [facility] Comment on above: For patients on eltr ombopag therapy, use of Dimension [place] TBIL is not recommended. Chloride [Moles/Vol] 110 mmol/L 98-107 [facility] Eosinophils/100 WBC (Bld) 0.3 % 0-5 [facility] Glucose [Mass/Vol] 92 mg/dL 74-106 [facility] Neutrophils (Bld) [#/Vol] 1.9 10*3/uL 2.0-7.7 [facility] Neutrophils/100 WBC (Bld) 51.8 % 47-70 [facility] Potassium [Moles/Vol] 3.6 mmol/L 3.5-5.1 [facility] Protein [Mass/Vol] 6.2 g/dL 6.4-8.2 [facility] Sodium [Moles/Vol] 139 mmol/L 136-145 [facility] WBC (Bld) [#/Vol] 3.7 10*3/uL 4.4-11.0 [facility] Blood erythrocytes count (nu mber/volume)Ordered By: Dr. Hay on 07-02-2022 RBC (Bld) [#/Vol] 2.27 10*6/uL 4.2-5.4 [facility] Blood hemoglobin measurement (mass/volume)Ordered By: Dr. Hay on 07-02-2022 Hemoglobin (Bld) [Mass/Vol] 8.0 g/dL 12.0-15.0 [facility] Blood lymphocytes/100 leukoc ytesOrdered By: Dr. Hay on 07-02-2022 Lymphocytes/100 WBC (Bld) 30.4 % 19-41 [facility] Blood manual differential co mment interpretation (narrative result)Ordered By: Dr. Hay on 07-02-2022 Manual differential comment Sridhar (Bld) [Interp] SCANNED [facility] Comment on above: FEW BANDS NOTED Blood monocytes/100 leukocyt esOrdered By: Dr. Hay on 07-02-2022 Monocytes/100 WBC (Bld) 16.9 % 0-10 [facility] Blood platelet adequacy dete ction by light microscopyOrdered By: Dr. Hay on 07-02-2022 Platelets LM Ql (Bld) MOD DEC ADEQ [facility] Blood platelet mean volumeOr dered By: Dr. Hay on 07-02-2022 Platelet mean volume (Bld) [Entitic vol] 10.1 fL 6.2-12.0 [facility] Determination of erythrocyte mean corpuscular volume (MCV)Ordered By: Dr. Hay on 07-02-2022 MCV (RBC) [Entitic vol] 105.3 fL 81-99 [facility] Hematocrit Auto (Bld) [Volum e fraction]Ordered By: Dr. Hay on 07-02-2022 Hematocrit (Bld) [Volume fraction] 23.9 % 37-47 [facility] Laboratory - Chemistry and C hemistry - challengeOrdered By: Dr. Hay on 07-02-2022 ALP [Catalytic activity/Vol] 68 U/L 45-117 [facility] ALT [Catalytic activity/Vol] 19 U/L 13-56 [facility] CO2 [Moles/Vol] 26.0 mmol/L 21.0-32.0 [facility] Globulin (S) [Mass/Vol] 3.2 g/dL 2.2-4.2 [facility] Urea nitrogen/Creatinine [Mass ratio] 13.9 mg/mg 10-20 [facility] - Hematology and Cell countsOrdered By: Dr. Hay on 07-02-2022 Erythrocyte distribution width (RBC) [Entitic vol] 62.1 fL 35.1-43.9 [facility] Erythrocyte distribution width (RBC) [Ratio] 16.1 % 11.6-14.6 [facility] Immature granulocytes/100 WBC (Bld) 0.300 % 0.0-0.9 [facility] Comment on above: IG% - Immature Granu locytes (promyelocytes, myelocytes and metamyelocytes) > 1% indicates that a LEFT SHIFT is Present. MCH (RBC) [Entitic mass] 35.2 pg 27.0-32.0 [facility] Nucleated RBC/100 WBC (Bld) [Ratio] 0 % 0-5 [facility] MCHC Auto (RBC) [Mass/Vol]Or dered By: Dr. Hay on 07-02-2022 MCHC (RBC) [Mass/Vol] 33.5 g/dL 32-36 [facility] No Panel InformationOrdered By: Dr. Hay on 07-02-2022 Estimated Creatinine Clearance Calc 45.85 ml/min [facility] Estimated GFR (MDRD) Amer 117 mL/min >60 [facility] Comment on above: GFR Calc Estimated GFR (MDRD) Non-Af Amer 96 mL/min >60 [facility] Comment on above: Non- GFR Calc Platelets bldOrdered By: Dr. Hay on 07-02-2022 Platelets (Bld) [#/Vol] 92 10*3/uL 150-450 [facility] Serum or plasma albumin tim urement (mass/volume)Ordered By: Dr. Hay on 07-02-2022 Albumin [Mass/Vol] 3.0 g/dL 3.2-5.0 [facility] Serum or plasma albumin/glob ulin mass ratioOrdered By: Dr. Hay on 07-02-2022 Albumin/Globulin [Mass ratio] 0.9 {ratio} 0.9-2.4 [facility] Serum or plasma calcium tim urement (mass/volume)Ordered By: Dr. Hay on 07-02-2022 Calcium [Mass/Vol] 8.1 mg/dL 8.5-10.1 [facility] Serum or plasma creatinine m easurement (mass/volume)Ordered By: Dr. Hay on 07-02-2022 Creatinine [Mass/Vol] 0.65 mg/dL 0.55-1.02 [facility] Comment on above: The validity of the calculated GFR & GFRAA in patients over 70 years has not been determined. Clinical correlation is essential. Serum or plasma urea nitroge n measurement (mass/volume)Ordered By: Dr. Hay on 07-02-2022 Urea nitrogen [Mass/Vol] 9 mg/dL 7-18 [facility] Thin prep Papanicolaou smear with manual screeningOrdered By: Dr. aHy on 07-02-2022 Thin prep Papanicolaou smear with manual screening 17 U/L 15-37 [facility] Thin prep Papanicolaou smear with manual screening 3 5-15 [facility] Absolute lymphocyte countOrd ered By: Dr. White on 07-01-2022 Lymphocytes Auto (Unsp spec) [#/Vol] 0.97 10*3/uL 0.83-4.51 [facility] Basophil percentageOrdered B y: Dr. White on 07-01-2022 Basophil percentage 0 SEEN /hpf 0-5 [facility] Basophils/100 WBC (Bld) 0.5 % 0-1 [facility] Bilirubin [Mass/Vol] 0.30 mg/dL 0.20-1.00 [facility] Comment on above: For patients on eltr ombopag therapy, use of Dimension [place] TBIL is not recommended. Chloride [Moles/Vol] 105 mmol/L 98-107 [facility] Eosinophils/100 WBC (Bld) 0.0 % 0-5 [facility] Glucose [Mass/Vol] 97 mg/dL 74-106 [facility] Lactate [Moles/Vol] 0.8 mmol/L 0.4-2.0 [facility] Neutrophils (Bld) [#/Vol] 0.3 10*3/uL 2.0-7.7 [facility] Neutrophils/100 WBC (Bld) 16.0 % 47-70 [facility] Potassium [Moles/Vol] 3.8 mmol/L 3.5-5.1 [facility] Protein [Mass/Vol] 6.9 g/dL 6.4-8.2 [facility] Sodium [Moles/Vol] 138 mmol/L 136-145 [facility] WBC (Bld) [#/Vol] 1.9 10*3/uL 4.4-11.0 [facility] Basophil percentageOrdered B y: Dr. Hay on 07-01-2022 Basophil percentage 3.2 mg/dL 2.5-4.9 [facility] Bilirubin Test strip Ql (U)O rdered By: Dr. White on 07-01-2022 Bilirubin Ql (U) Negative Negative [facility] Blood erythrocytes count (nu mber/volume)Ordered By: Dr. White on 07-01-2022 RBC (Bld) [#/Vol] 2.33 10*6/uL 4.2-5.4 [facility] Blood hemoglobin measurement (mass/volume)Ordered By: Dr. White on 07-01-2022 Hemoglobin (Bld) [Mass/Vol] 8.0 g/dL 12.0-15.0 [facility] Blood lymphocytes/100 leukoc ytesOrdered By: Dr. White on 07-01-2022 Lymphocytes/100 WBC (Bld) 50.3 % 19-41 [facility] Blood manual differential co mment interpretation (narrative result)Ordered By: Dr. White on 07-01-2022 Manual differential comment Sridhar (Bld) [Interp] SCANNED [facility] Comment on above: NEUTROPENIA Blood monocytes/100 leukocyt esOrdered By: Dr. White on 07-01-2022 Monocytes/100 WBC (Bld) 33.2 % 0-10 [facility] Blood platelet mean volumeOr dered By: Dr. White on 07-01-2022 Platelet mean volume (Bld) [Entitic vol] 10.3 fL 6.2-12.0 [facility] COVID-19 virus antigen assay Ordered By: Dr. Hay on 07-01-2022 SARS-CoV-2 (COVID-19) Ag IA.rapid Ql (Resp) Not detected Not Detect [facility] Comment on above: Normal Reference Ran ge: Not DetectedMethod:(RT-PCR) real-time reverse transcriptase PCRLuminex JAIME Instrument*The Food and Drug Administration (FDA) has issued an Emergency Use Authorization (EAU) for the JAIME SARS-CoV-2 Assay for the rapid detection of the virus that causes COVID-19. This test has been validated, but the FDAs independent review of this validation is pending.*Negative results do not preclude infection and should not be used as the sole basis for treatment or patient management. Optimum specimen types and timing for peak viral levels during infections caused by SARS-CoV-2 have not been determined. Collection of multiple specimens from the same patient may be necessary to detect the virus. The possibility of a false negative result should be considered if the patient has clinical presentation or has had recent exposure. Determination of erythrocyte mean corpuscular volume (MCV)Ordered By: Dr. White on 07-01-2022 MCV (RBC) [Entitic vol] 105.2 fL 81-99 [facility] Hematocrit Auto (Bld) [Volum e fraction]Ordered By: Dr. White on 07-01-2022 Hematocrit (Bld) [Volume fraction] 24.5 % 37-47 [facility] Influenza virus A and B and SARS-CoV-2 (COVID-19) Ag panel - Upper respiratory specimOrdered By: Dr. White on 07-01-2022 SARS-CoV-2 (COVID-19) RNA NICOLE+probe Ql (Resp) [facility] Ketones Test strip Ql (U)Ord ered By: Dr. White on 07-01-2022 Ketones Ql (U) Negative Negative [facility] Laboratory - Chemistry and C hemistry - challengeOrdered By: Dr. White on 07-01-2022 ALP [Catalytic activity/Vol] 78 U/L 45-117 [facility] ALT [Catalytic activity/Vol] 22 U/L 13-56 [facility] CO2 [Moles/Vol] 28.0 mmol/L 21.0-32.0 [facility] Globulin (S) [Mass/Vol] 3.5 g/dL 2.2-4.2 [facility] Urea nitrogen/Creatinine [Mass ratio] 15.8 mg/mg 10-20 [facility] Laboratory - Chemistry and C hemistry - challengeOrdered By: Dr. Hay on 07-01-2022 Magnesium [Mass/Vol] 2.0 mg/dL 1.6-2.6 [facility] Laboratory - Hematology and Cell countsOrdered By: Dr. White on 07-01-2022 Erythrocyte distribution width (RBC) [Entitic vol] 59.7 fL 35.1-43.9 [facility] Erythrocyte distribution width (RBC) [Ratio] 15.8 % 11.6-14.6 [facility] Immature granulocytes/100 WBC (Bld) 0.000 % 0.0-0.9 [facility] Comment on above: IG% - Immature Granu locytes (promyelocytes, myelocytes and metamyelocytes) > 1% indicates that a LEFT SHIFT is Present. MCH (RBC) [Entitic mass] 34.3 pg 27.0-32.0 [facility] Nucleated RBC/100 WBC (Bld) [Ratio] 0 % 0-5 [facility] MCHC Auto (RBC) [Mass/Vol]Or dered By: Dr. White on 07-01-2022 MCHC (RBC) [Mass/Vol] 32.7 g/dL 32-36 [facility] Mucus LM Ql (Urine sed)Order ed By: Dr. White on 07-01-2022 Mucus Ql (Urine sed) 0 SEEN /hpf [facility] Nitrite Test strip Ql (U)Ord ered By: Dr. White on 07-01-2022 Nitrite Ql (U) Negative Negative [facility] No Panel InformationOrdered By: Dr. White on 07-01-2022 D-Dimer Quantitative (PE/DVT) 1.19 FEU/ug/m 0.27-0.49 [facility] Comment on above: D-Dimer ELEVATED (>0 .49): Additional studies and clinicalassessments are indicated to conclude diagnosis of:Deep Vein Thrombosis (DVT) or Pulmonary Embolism (PE)CRITICAL VALUE VERIFIED. CALLED TO ALLIE07/01/22 Gabbi Pearson.RESULTS READ BACK BY SAME. Estimated Creatinine Clearance Calc 45.85 ml/min [facility] Estimated GFR (MDRD) Amer 97 mL/min >60 [facility] Comment on above: GFR Calc Estimated GFR (MDRD) Non-Af Amer 80 mL/min >60 [facility] Comment on above: Non- GFR Calc Platelets bldOrdered By: Dr. White on 07-01-2022 Platelets (Bld) [#/Vol] 100 10*3/uL 150-450 [facility] Protein Test strip Ql (U)Ord ered By: Dr. White on 07-01-2022 Protein Ql (U) Negative Negative [facility] Serum or plasma albumin tim urement (mass/volume)Ordered By: Dr. White on 07-01-2022 Albumin [Mass/Vol] 3.4 g/dL 3.2-5.0 [facility] Serum or plasma albumin/glob ulin mass ratioOrdered By: Dr. White on 07-01-2022 Albumin/Globulin [Mass ratio] 1.0 {ratio} 0.9-2.4 [facility] Serum or plasma calcium tim urement (mass/volume)Ordered By: Dr. White on 07-01-2022 Calcium [Mass/Vol] 8.4 mg/dL 8.5-10.1 [facility] Serum or plasma creatinine m easurement (mass/volume)Ordered By: Dr. White on 07-01-2022 Creatinine [Mass/Vol] 0.76 mg/dL 0.55-1.02 [facility] Comment on above: The validity of the calculated GFR & GFRAA in patients over 70 years has not been determined. Clinical correlation is essential. Serum or plasma urea nitroge n measurement (mass/volume)Ordered By: Dr. White on 07-01-2022 Urea nitrogen [Mass/Vol] 12 mg/dL 7-18 [facility] Squamous epithelial cells de tection in urine sediment by light microscopyOrdered By: Dr. White on 07-01-2022 Epithelial cells.squamous LM Ql (Urine sed) 0 SEEN /hpf 5-10 [facility] Thin prep Papanicolaou smear with manual screeningOrdered By: Dr. White on 07-01-2022 Thin prep Papanicolaou smear with manual screening 22 U/L 15-37 [facility] Thin prep Papanicolaou smear with manual screening 5 5-15 [facility] Urine blood detectionOrdered By: Dr. White on 07-01-2022 RBC Ql (U) Negative Negative [facility] RBC Ql (U) 0 SEEN /hpf 0-5 [facility] Urine clarityOrdered By: Dr. White on 07-01-2022 Clarity (U) Clear Clear [facility] Urine color determinationOrd ered By: Dr. White on 07-01-2022 Color (U) Yellow Yellow [facility] Urine glucose detectionOrder ed By: Dr. White on 07-01-2022 Glucose Ql (U) Normal mg/dl Normal [facility] Urine leukocyte esterase det ection by dipstickOrdered By: Dr. White on 07-01-2022 Leukocyte esterase Test strip Ql (U) Negative Negative [facility] Urine pHOrdered By: Dr. Hakeem escamilla on 07-01-2022 pH (U) 8.0 [pH] 5.0 - 8.0 [facility] Urine sediment bacteria coun t by microscopy (number/high power field)Ordered By: Dr. White on 07-01-2022 Bacteria LM.HPF (Urine sed) [#/Area] 0 /[HPF] None Seen [facility] Urine specific gravity measu rementOrdered By: Dr. White on 07-01-2022 Specific gravity (U) [Rel density] 1.010 1.002-1.03 0 [facility] Urobilinogen Auto test strip Ql (U)Ordered By: Dr. White on 07-01-2022 Urobilinogen Ql (U) Normal mg/dl Normal [facility] Urinalysis complete panel (U )on 06-17-2022 Bilirubin Ql (U) Negative Negative mg/dL [facility] Specific Media Clarity (U) Clear Clear [facility] Color (U) Yellow Lt. Yellow [facility] Glucose Ql (U) Normal Normal (<70) mg/dL [facility] Hemoglobin Ql (U) Negative Negative mg/dL [facility] Interpretation and review of laboratory results Normal [facility] Ketones (U) [Mass/Vol] Negative Negat tran mg/dL [facility] Leukocyte esterase Test strip Ql (U) Negative Negative New/uL [facility] Nitrite Ql (U) Negative Negative [facility] pH (U) 5.5 [pH] 5.0 - 8.0 pH [facility] Protein (U) [Mass/Vol] Negative Negat tran mg/dL [facility] Specific gravity (U) [Rel density] 1.011 1.005 - 1.030 [facility] Urobilinogen (U) [Mass/Vol] Normal Normal (0-1) mg/dL [facility] Absolute lymphocyte countOrd ered By: Dr. Richey on 06-16-2022 Lymphocytes Auto (Unsp spec) [#/Vol] 1.20 10*3/uL 0.83-4.51 [facility] Basophil percentageOrdered B y: Dr. Richey on 06-16-2022 Basophils/100 WBC (Bld) 0.3 % 0-1 [facility] Bilirubin [Mass/Vol] 0.30 mg/dL 0.20-1.00 [facility] Comment on above: For patients on eltr ombopag therapy, use of Dimension [place] TBIL is not recommended. Chloride [Moles/Vol] 107 mmol/L 98-107 [facility] Eosinophils/100 WBC (Bld) 0.7 % 0-5 [facility] Glucose [Mass/Vol] 107 mg/dL 74-106 [facility] Comment on above: Fasting Glucose resu lt from 100 to 125 mg/dL suggests IMPAIRED HOMEOSTASIS per A.D.A. criteria. Neutrophils (Bld) [#/Vol] 1.5 10*3/uL 2.0-7.7 [facility] Neutrophils/100 WBC (Bld) 50.3 % 47-70 [facility] Potassium [Moles/Vol] 3.7 mmol/L 3.5-5.1 [facility] Protein [Mass/Vol] 7.3 g/dL 6.4-8.2 [facility] Sodium [Moles/Vol] 140 mmol/L 136-145 [facility] WBC (Bld) [#/Vol] 3.0 10*3/uL 4.4-11.0 [facility] Blood erythrocytes count (nu mber/volume)Ordered By: Dr. Richey on 06-16-2022 RBC (Bld) [#/Vol] 2.91 10*6/uL 4.2-5.4 [facility] Blood hemoglobin measurement (mass/volume)Ordered By: Dr. Richey on 06-16-2022 Hemoglobin (Bld) [Mass/Vol] 9.9 g/dL 12.0-15.0 [facility] Blood lymphocytes/100 leukoc ytesOrdered By: Dr. Richey on 06-16-2022 Lymphocytes/100 WBC (Bld) 39.5 % 19-41 [facility] Blood monocytes/100 leukocyt esOrdered By: Dr. Richey on 06-16-2022 Monocytes/100 WBC (Bld) 9.2 % 0-10 [facility] Blood platelet mean volumeOr dered By: Dr. Richey on 06-16-2022 Platelet mean volume (Bld) [Entitic vol] 10.1 fL 6.2-12.0 [facility] Determination of erythrocyte mean corpuscular volume (MCV)Ordered By: Dr. Richey on 06-16-2022 MCV (RBC) [Entitic vol] 102.4 fL 81-99 [facility] Hematocrit Auto (Bld) [Volum e fraction]Ordered By: Dr. Richey on 06-16-2022 Hematocrit (Bld) [Volume fraction] 29.8 % 37-47 [facility] Laboratory - Chemistry and C hemistry - challengeOrdered By: Dr. Richey on 06-16-2022 ALP [Catalytic activity/Vol] 92 U/L 45-117 [facility] ALT [Catalytic activity/Vol] 22 U/L 13-56 [facility] CO2 [Moles/Vol] 27.0 mmol/L 21.0-32.0 [facility] Globulin (S) [Mass/Vol] 3.6 g/dL 2.2-4.2 [facility] Urea nitrogen/Creatinine [Mass ratio] 24.8 mg/mg 10-20 [facility] Laboratory - Hematology and Cell countsOrdered By: Dr. Richey on 06-16-2022 Erythrocyte distribution width (RBC) [Entitic vol] 60.0 fL 35.1-43.9 [facility] Erythrocyte distribution width (RBC) [Ratio] 16.1 % 11.6-14.6 [facility] Immature granulocytes/100 WBC (Bld) 0.000 % 0.0-0.9 [facility] Comment on above: IG% - Immature Granu locytes (promyelocytes, myelocytes and metamyelocytes) > 1% indicates that a LEFT SHIFT is Present. MCH (RBC) [Entitic mass] 34.0 pg 27.0-32.0 [facility] Nucleated RBC/100 WBC (Bld) [Ratio] 0 % 0-5 [facility] MCHC Auto (RBC) [Mass/Vol]Or dered By: Dr. Richey on 06-16-2022 MCHC (RBC) [Mass/Vol] 33.2 g/dL 32-36 [facility] No Panel InformationOrdered By: Dr. Richey on 06-16-2022 Estimated GFR (MDRD) Amer 96 mL/min >60 [facility] Comment on above: GFR Calc Estimated GFR (MDRD) Non-Af Amer 80 mL/min >60 [facility] Comment on above: Non- GFR Calc Platelets bldOrdered By: Dr. Richey on 06-16-2022 Platelets (Bld) [#/Vol] 153 10*3/uL 150-450 [facility] Serum or plasma albumin tim urement (mass/volume)Ordered By: Dr. Richey on 06-16-2022 Albumin [Mass/Vol] 3.7 g/dL 3.2-5.0 [facility] Serum or plasma albumin/glob ulin mass ratioOrdered By: Dr. Richey on 06-16-2022 Albumin/Globulin [Mass ratio] 1.0 {ratio} 0.9-2.4 [facility] Serum or plasma calcium tim urement (mass/volume)Ordered By: Dr. Richey on 06-16-2022 Calcium [Mass/Vol] 8.6 mg/dL 8.5-10.1 [facility] Serum or plasma creatinine m easurement (mass/volume)Ordered By: Dr. Richey on 06-16-2022 Creatinine [Mass/Vol] 0.76 mg/dL 0.55-1.02 [facility] Comment on above: The validity of the calculated GFR & GFRAA in patients over 70 years has not been determined. Clinical correlation is essential. Serum or plasma urea nitroge n measurement (mass/volume)Ordered By: Dr. Richey on 06-16-2022 Urea nitrogen [Mass/Vol] 19 mg/dL 7-18 [facility] Thin prep Papanicolaou smear with manual screeningOrdered By: Dr. Richey on 06-16-2022 Thin prep Papanicolaou smear with manual screening 20 U/L 15-37 [facility] Thin prep Papanicolaou smear with manual screening 6 5-15 [facility] Blood manual differential co mment interpretation (narrative result)Ordered By: Dr. Richey on 06-09-2022 Manual differential comment Sridhar (Bld) [Interp] SCANNED [facility] No Panel InformationOrdered By: Dr. Richey on 06-09-2022 CA 125 Antigen 13.3 U/mL 0.0-38.1 [facility] Comment on above: [employer] El ectrochemiluminescence Immunoassay(ECLIA)Values obtained with different assay methods or kits cannotbe used interchangeably. Results cannot be interpreted asabsolute evidence of the presence or absence of malignantdisease.Performed at: [employer] Director: Bucky Boothe PhD, Phone: [phone] Absolute lymphocyte countOrd ered By: Dr. Richey on 05-19-2022 Lymphocytes Auto (Unsp spec) [#/Vol] 1.23 10*3/uL 0.83-4.51 [facility] Basophil percentageOrdered B y: Dr. Richey on 05-19-2022 Basophils/100 WBC (Bld) 0.3 % 0-1 [facility] Bilirubin [Mass/Vol] 0.40 mg/dL 0.20-1.00 [facility] Comment on above: For patients on eltr ombopag therapy, use of Dimension [place] TBIL is not recommended. Chloride [Moles/Vol] 104 mmol/L 98-107 [facility] Eosinophils/100 WBC (Bld) 0.7 % 0-5 [facility] Glucose [Mass/Vol] 102 mg/dL 74-106 [facility] Comment on above: Fasting Glucose resu lt from 100 to 125 mg/dL suggests IMPAIRED HOMEOSTASIS per A.D.A. criteria. Neutrophils (Bld) [#/Vol] 1.3 10*3/uL 2.0-7.7 [facility] Neutrophils/100 WBC (Bld) 46.4 % 47-70 [facility] Potassium [Moles/Vol] 3.8 mmol/L 3.5-5.1 [facility] Protein [Mass/Vol] 7.5 g/dL 6.4-8.2 [facility] Sodium [Moles/Vol] 140 mmol/L 136-145 [facility] WBC (Bld) [#/Vol] 2.9 10*3/uL 4.4-11.0 [facility] Blood erythrocytes count (nu mber/volume)Ordered By: Dr. Richey on 05-19-2022 RBC (Bld) [#/Vol] 3.07 10*6/uL 4.2-5.4 [facility] Blood hemoglobin measurement (mass/volume)Ordered By: Dr. Richey on 05-19-2022 Hemoglobin (Bld) [Mass/Vol] 10.2 g/dL 12.0-15.0 [facility] Blood lymphocytes/100 leukoc ytesOrdered By: Dr. Richey on 05-19-2022 Lymphocytes/100 WBC (Bld) 42.6 % 19-41 [facility] Blood monocytes/100 leukocyt esOrdered By: Dr. Richey on 05-19-2022 Monocytes/100 WBC (Bld) 9.7 % 0-10 [facility] Blood platelet mean volumeOr dered By: Dr. Richey on 05-19-2022 Platelet mean volume (Bld) [Entitic vol] 9.9 fL 6.2-12.0 [facility] Determination of erythrocyte mean corpuscular volume (MCV)Ordered By: Dr. Richey on 05-19-2022 MCV (RBC) [Entitic vol] 101.3 fL 81-99 [facility] Hematocrit Auto (Bld) [Volum e fraction]Ordered By: Dr. Richey on 05-19-2022 Hematocrit (Bld) [Volume fraction] 31.1 % 37-47 [facility] Laboratory - Chemistry and C hemistry - challengeOrdered By: Dr. Richey on 05-19-2022 ALP [Catalytic activity/Vol] 94 U/L 45-117 [facility] ALT [Catalytic activity/Vol] 25 U/L 13-56 [facility] CO2 [Moles/Vol] 30.0 mmol/L 21.0-32.0 [facility] Globulin (S) [Mass/Vol] 3.6 g/dL 2.2-4.2 [facility] Urea nitrogen/Creatinine [Mass ratio] 20.8 mg/mg 10-20 [facility] Laboratory - Hematology and Cell countsOrdered By: Dr. Richey on 05-19-2022 Erythrocyte distribution width (RBC) [Entitic vol] 51.5 fL 35.1-43.9 [facility] Erythrocyte distribution width (RBC) [Ratio] 14.4 % 11.6-14.6 [facility] Immature granulocytes/100 WBC (Bld) 0.300 % 0.0-0.9 [facility] Comment on above: IG% - Immature Granu locytes (promyelocytes, myelocytes and metamyelocytes) > 1% indicates that a LEFT SHIFT is Present. MCH (RBC) [Entitic mass] 33.2 pg 27.0-32.0 [facility] Nucleated RBC/100 WBC (Bld) [Ratio] 0 % 0-5 [facility] MCHC Auto (RBC) [Mass/Vol]Or dered By: Dr. Richey on 05-19-2022 MCHC (RBC) [Mass/Vol] 32.8 g/dL 32-36 [facility] No Panel InformationOrdered By: Dr. Richey on 05-19-2022 CA 125 Antigen 15.3 U/mL 0.0-38.1 [facility] Comment on above: [facility] El ectrochemiluminescence Immunoassay(ECLIA)Values obtained with different assay methods or kits cannotbe used interchangeably. Results cannot be interpreted asabsolute evidence of the presence or absence of malignantdisease.Performed at: [facility] [id number] Director: Bucky Boothe PhD, Phone: [phone] Estimated GFR (MDRD) Amer 78 mL/min >60 [facility] Comment on above: GFR Calc Estimated GFR (MDRD) Non-Af Amer 65 mL/min >60 [facility] Comment on above: Non- GFR Calc Platelets bldOrdered By: Dr. Richey on 05-19-2022 Platelets (Bld) [#/Vol] 154 10*3/uL 150-450 [facility] Serum or plasma albumin tim urement (mass/volume)Ordered By: Dr. Richey on 05-19-2022 Albumin [Mass/Vol] 3.9 g/dL 3.2-5.0 [facility] Serum or plasma albumin/glob ulin mass ratioOrdered By: Dr. Richey on 05-19-2022 Albumin/Globulin [Mass ratio] 1.1 {ratio} 0.9-2.4 [facility] Serum or plasma calcium tim urement (mass/volume)Ordered By: Dr. Richey on 05-19-2022 Calcium [Mass/Vol] 9.1 mg/dL 8.5-10.1 [facility] Serum or plasma creatinine m easurement (mass/volume)Ordered By: Dr. Richey on 05-19-2022 Creatinine [Mass/Vol] 0.91 mg/dL 0.55-1.02 [facility] Comment on above: The validity of the calculated GFR & GFRAA in patients over 70 years has not been determined. Clinical correlation is essential. Serum or plasma urea nitroge n measurement (mass/volume)Ordered By: Dr. Richey on 05-19-2022 Urea nitrogen [Mass/Vol] 19 mg/dL 7-18 [facility] Thin prep Papanicolaou smear with manual screeningOrdered By: Dr. Richey on 05-19-2022 Thin prep Papanicolaou smear with manual screening 24 U/L 15-37 [facility] Thin prep Papanicolaou smear with manual screening 6 5-15 [facility] Laboratory - Chemistry and C hemistry - challengeon 04-28-2022 Creatinine [Mass/Vol] 0.74 mg/dL 0.52 - 1.04 mg/dL [facility] Laboratory - Hematology and Cell countson 04-28-2022 Hematocrit (Bld) [Volume fraction] 33.1 % Abnormal 35.0 - 47.0 % [facility] Hemoglobin (Bld) [Mass/Vol] 11.0 g/dL Abnormal 11.7 - 16.0 g/dL [facility] Neutrophils (Bld) [#/Vol] 2.8 10*3/uL 1.8 - 7.0 10*3/uL [facility] Platelets (Bld) [#/Vol] 246 10*3/uL 140 - 440 10*3/uL [facility] WBC (Bld) [#/Vol] 4.6 10*3/uL 3.6 - 10.7 10*3/uL [facility] No Panel Informationon 04-28 Interpretation and review of laboratory results Abnormal [facility] Absolute lymphocyte countOrd ered By: Dr. Ignacio on 04-01-2022 Lymphocytes Auto (Unsp spec) [#/Vol] 1.33 10*3/uL 0.83-4.51 [facility] Basophil percentageOrdered B y: Dr. Ignacio on 04-01-2022 Basophils/100 WBC (Bld) 0.7 % 0-1 [facility] Bilirubin [Mass/Vol] 0.50 mg/dL 0.20-1.00 [facility] Comment on above: For patients on eltr ombopag therapy, use of Dimension [place] TBIL is not recommended. Chloride [Moles/Vol] 108 mmol/L 98-107 [facility] Eosinophils/100 WBC (Bld) 2.4 % 0-5 [facility] Glucose [Mass/Vol] 94 mg/dL 74-106 [facility] Neutrophils (Bld) [#/Vol] 2.7 10*3/uL 2.0-7.7 [facility] Neutrophils/100 WBC (Bld) 58.5 % 47-70 [facility] Potassium [Moles/Vol] 3.9 mmol/L 3.5-5.1 [facility] Protein [Mass/Vol] 7.2 g/dL 6.4-8.2 [facility] Sodium [Moles/Vol] 141 mmol/L 136-145 [facility] WBC (Bld) [#/Vol] 4.6 10*3/uL 4.4-11.0 [facility] Blood erythrocytes count (nu mber/volume)Ordered By: Dr. Ignacio on 04-01-2022 RBC (Bld) [#/Vol] 3.79 10*6/uL 4.2-5.4 [facility] Blood hemoglobin measurement (mass/volume)Ordered By: Dr. Ignacio on 04-01-2022 Hemoglobin (Bld) [Mass/Vol] 12.4 g/dL 12.0-15.0 [facility] Blood lymphocytes/100 leukoc ytesOrdered By: Dr. Ignacio on 04-01-2022 Lymphocytes/100 WBC (Bld) 29.0 % 19-41 [facility] Blood monocytes/100 leukocyt esOrdered By: Dr. Ignacio on 04-01-2022 Monocytes/100 WBC (Bld) 9.2 % 0-10 [facility] Blood platelet mean volumeOr dered By: Dr. Ignacio on 04-01-2022 Platelet mean volume (Bld) [Entitic vol] 10.6 fL 6.2-12.0 [facility] Determination of erythrocyte mean corpuscular volume (MCV)Ordered By: Dr. Ignacio on 04-01-2022 MCV (RBC) [Entitic vol] 99.2 fL 81-99 [facility] Hematocrit Auto (Bld) [Volum e fraction]Ordered By: Dr. Ignacio on 04-01-2022 Hematocrit (Bld) [Volume fraction] 37.6 % 37-47 [facility] Laboratory - Chemistry and C hemistry - challengeOrdered By: Dr. Ignacio on 04-01-2022 ALP [Catalytic activity/Vol] 84 U/L 45-117 [facility] ALT [Catalytic activity/Vol] 22 U/L 13-56 [facility] CO2 [Moles/Vol] 31.0 mmol/L 21.0-32.0 [facility] Globulin (S) [Mass/Vol] 3.4 g/dL 2.2-4.2 [facility] Urea nitrogen/Creatinine [Mass ratio] 23.4 mg/mg 10-20 [facility] Laboratory - Hematology and Cell countsOrdered By: Dr. Ignacio on 04-01-2022 Erythrocyte distribution width (RBC) [Entitic vol] 44.7 fL 35.1-43.9 [facility] Erythrocyte distribution width (RBC) [Ratio] 12.2 % 11.6-14.6 [facility] Immature granulocytes/100 WBC (Bld) 0.200 % 0.0-0.9 [facility] Comment on above: IG% - Immature Granu locytes (promyelocytes, myelocytes and metamyelocytes) > 1% indicates that a LEFT SHIFT is Present. MCH (RBC) [Entitic mass] 32.7 pg 27.0-32.0 [facility] Nucleated RBC/100 WBC (Bld) [Ratio] 0 % 0-5 [facility] MCHC Auto (RBC) [Mass/Vol]Or dered By: Dr. Ignacio on 04-01-2022 MCHC (RBC) [Mass/Vol] 33.0 g/dL 32-36 [facility] No Panel InformationOrdered By: Dr. Ignacio on 04-01-2022 CA 125 Antigen 36.3 U/mL 0.0-38.1 [facility] Comment on above: [employer] El ectrochemiluminescence Immunoassay(ECLIA)Values obtained with different assay methods or kits cannotbe used interchangeably. Results cannot be interpreted asabsolute evidence of the presence or absence of malignantdisease.Performed at: [employer] Director: Bucky Boothe PhD, Phone: [phone] Estimated GFR (MDRD) Amer 96 mL/min >60 [facility] Comment on above: GFR Calc Estimated GFR (MDRD) Non-Af Amer 79 mL/min >60 [facility] Comment on above: Non- GFR Calc Platelets bldOrdered By: Dr. Igancio on 04-01-2022 Platelets (Bld) [#/Vol] 234 10*3/uL 150-450 [facility] Serum or plasma albumin tim urement (mass/volume)Ordered By: Dr. Ignacio on 04-01-2022 Albumin [Mass/Vol] 3.8 g/dL 3.2-5.0 [facility] Serum or plasma albumin/glob ulin mass ratioOrdered By: Dr. Ignacio on 04-01-2022 Albumin/Globulin [Mass ratio] 1.1 {ratio} 0.9-2.4 [facility] Serum or plasma calcium tim urement (mass/volume)Ordered By: Dr. Ignacio on 04-01-2022 Calcium [Mass/Vol] 8.9 mg/dL 8.5-10.1 [facility] Serum or plasma creatinine m easurement (mass/volume)Ordered By: Dr. Ignacio on 04-01-2022 Creatinine [Mass/Vol] 0.77 mg/dL 0.55-1.02 [facility] Comment on above: The validity of the calculated GFR & GFRAA in patients over 70 years has not been determined. Clinical correlation is essential. Serum or plasma urea nitroge n measurement (mass/volume)Ordered By: Dr. Ignacio on 04-01-2022 Urea nitrogen [Mass/Vol] 18 mg/dL 7-18 [facility] Thin prep Papanicolaou smear with manual screeningOrdered By: Dr. Ignacio on 04-01-2022 Thin prep Papanicolaou smear with manual screening 19 U/L 15-37 [facility] Thin prep Papanicolaou smear with manual screening 2 5-15 [facility] No Panel InformationOrdered By: Dr. Ignacio on 02-23-2022 Miscellaneous Test See comment [facility] Comment on above: TEST RESULT LIMITSHe patitis B Surf Ab Quant 102.7 mIU/mL Immunity >9.9 Status of Immunity Anti-HBs Level Inconsistent with Immunity 0.0 - 9.9 Consistent with Immunity >9.9 TESTING PERFORMED AT [facility]. ORIGINAL REPORT ON FILE IN LAB CONTAINS ADDITIONAL TEST SITE INFORMATION. Absolute lymphocyte countOrd ered By: Dr. Ignacio on 01-03-2022 Lymphocytes Auto (Unsp spec) [#/Vol] 1.24 10*3/uL 0.83-4.51 [facility] Basophil percentageOrdered B y: Dr. Ignacio on 01-03-2022 Basophils/100 WBC (Bld) 0.5 % 0-1 [facility] Bilirubin [Mass/Vol] 0.50 mg/dL 0.20-1.00 [facility] Comment on above: For patients on eltr ombopag therapy, use of Dimension [place] TBIL is not recommended. Chloride [Moles/Vol] 106 mmol/L 98-107 [facility] Eosinophils/100 WBC (Bld) 2.0 % 0-5 [facility] Glucose [Mass/Vol] 102 mg/dL 74-106 [facility] Comment on above: Fasting Glucose resu lt from 100 to 125 mg/dL suggests IMPAIRED HOMEOSTASIS per A.D.A. criteria. Neutrophils (Bld) [#/Vol] 2.4 10*3/uL 2.0-7.7 [facility] Neutrophils/100 WBC (Bld) 59.4 % 47-70 [facility] Potassium [Moles/Vol] 3.9 mmol/L 3.5-5.1 [facility] Protein [Mass/Vol] 7.3 g/dL 6.4-8.2 [facility] Sodium [Moles/Vol] 142 mmol/L 136-145 [facility] WBC (Bld) [#/Vol] 4.1 10*3/uL 4.4-11.0 [facility] Blood erythrocytes count (nu mber/volume)Ordered By: Dr. Ignacio on 01-03-2022 RBC (Bld) [#/Vol] 3.68 10*6/uL 4.2-5.4 [facility] Blood hemoglobin measurement (mass/volume)Ordered By: Dr. Ignacio on 01-03-2022 Hemoglobin (Bld) [Mass/Vol] 12.0 g/dL 12.0-15.0 [facility] Blood lymphocytes/100 leukoc ytesOrdered By: Dr. Ignacio on 01-03-2022 Lymphocytes/100 WBC (Bld) 30.5 % 19-41 [facility] Blood monocytes/100 leukocyt esOrdered By: Dr. Ignacio on 01-03-2022 Monocytes/100 WBC (Bld) 7.4 % 0-10 [facility] Blood platelet mean volumeOr dered By: Dr. Ignacio on 01-03-2022 Platelet mean volume (Bld) [Entitic vol] 10.7 fL 6.2-12.0 [facility] Determination of erythrocyte mean corpuscular volume (MCV)Ordered By: Dr. Ignacio on 01-03-2022 MCV (RBC) [Entitic vol] 100.3 fL 81-99 [facility] Hematocrit Auto (Bld) [Volum e fraction]Ordered By: Dr. Ignacio on 01-03-2022 Hematocrit (Bld) [Volume fraction] 36.9 % 37-47 [facility] Laboratory - Chemistry and C hemistry - challengeOrdered By: Dr. Ignacio on 01-03-2022 ALP [Catalytic activity/Vol] 88 U/L 45-117 [facility] ALT [Catalytic activity/Vol] 26 U/L 13-56 [facility] CO2 [Moles/Vol] 28.0 mmol/L 21.0-32.0 [facility] Globulin (S) [Mass/Vol] 3.7 g/dL 2.2-4.2 [facility] Urea nitrogen/Creatinine [Mass ratio] 18.2 mg/mg 10-20 [facility] Laboratory - Hematology and Cell countsOrdered By: Dr. Ignacio on 01-03-2022 Erythrocyte distribution width (RBC) [Entitic vol] 47.4 fL 35.1-43.9 [facility] Erythrocyte distribution width (RBC) [Ratio] 12.7 % 11.6-14.6 [facility] Immature granulocytes/100 WBC (Bld) 0.200 % 0.0-0.9 [facility] Comment on above: IG% - Immature Granu locytes (promyelocytes, myelocytes and metamyelocytes) > 1% indicates that a LEFT SHIFT is Present. MCH (RBC) [Entitic mass] 32.6 pg 27.0-32.0 [facility] Nucleated RBC/100 WBC (Bld) [Ratio] 0 % 0-5 [facility] MCHC Auto (RBC) [Mass/Vol]Or dered By: Dr. Ignacio on 01-03-2022 MCHC (RBC) [Mass/Vol] 32.5 g/dL 32-36 [facility] No Panel InformationOrdered By: Dr. Ignacio on 01-03-2022 CA 125 Antigen 13.8 U/mL 0.0-38.1 [facility] Comment on above: [employer] El ectrochemiluminescence Immunoassay(ECLIA)Values obtained with different assay methods or kits cannotbe used interchangeably. Results cannot be interpreted asabsolute evidence of the presence or absence of malignantdisease.Performed at: [employer] [address] [id number] Director: Bucky Boothe PhD, Phone: [phone] Estimated Creatinine Clearance Calc 52.10 ml/min [facility] Estimated GFR (MDRD) Amer 82 mL/min >60 [facility] Comment on above: GFR Calc Estimated GFR (MDRD) Non-Af Amer 68 mL/min >60 [facility] Comment on above: Non- GFR Calc Platelets bldOrdered By: Dr. Ignacio on 01-03-2022 Platelets (Bld) [#/Vol] 212 10*3/uL 150-450 [facility] Serum or plasma albumin tim urement (mass/volume)Ordered By: Dr. Ignacio on 01-03-2022 Albumin [Mass/Vol] 3.6 g/dL 3.2-5.0 [facility] Serum or plasma albumin/glob ulin mass ratioOrdered By: Dr. Ignacio on 01-03-2022 Albumin/Globulin [Mass ratio] 1.0 {ratio} 0.9-2.4 [facility] Serum or plasma calcium tim urement (mass/volume)Ordered By: Dr. Ignacio on 01-03-2022 Calcium [Mass/Vol] 8.5 mg/dL 8.5-10.1 [facility] Serum or plasma creatinine m easurement (mass/volume)Ordered By: Dr. Ignacio on 01-03-2022 Creatinine [Mass/Vol] 0.88 mg/dL 0.55-1.02 [facility] Comment on above: The validity of the calculated GFR & GFRAA in patients over 70 years has not been determined. Clinical correlation is essential. Serum or plasma urea nitroge n measurement (mass/volume)Ordered By: Dr. Ignacio on 01-03-2022 Urea nitrogen [Mass/Vol] 16 mg/dL 7-18 [facility] Thin prep Papanicolaou smear with manual screeningOrdered By: Dr. Ignacio on 01-03-2022 Thin prep Papanicolaou smear with manual screening 25 U/L 15-37 [facility] Thin prep Papanicolaou smear with manual screening 8 5-15 [facility] Absolute lymphocyte counton 10-11-2021 Lymphocytes Auto (Unsp spec) [#/Vol] 1.34 10*3/uL 0.83-4.51 [facility] Work Phone: Basophil percentageon 2021 Basophil percentage < 0.9 mg/dL 0.55-1.02 [facility] Work Phone: Basophils/100 WBC (Bld) 0.8 % 0-1 [facility] Work Phone: Eosinophils/100 WBC (Bld) 2.5 % 0-5 [facility] Work Phone: Neutrophils (Bld) [#/Vol] 1.9 10*3/uL 2.0-7.7 [facility] Work Phone: Neutrophils/100 WBC (Bld) 51.0 % 47-70 [facility] Work Phone: WBC (Bld) [#/Vol] 3.7 10*3/uL 4.4-11.0 [facility] Work Phone: Blood erythrocytes count (nu mber/volume)on 10-11-2021 RBC (Bld) [#/Vol] 3.56 10*6/uL 4.2-5.4 [facility] Work Phone: Blood hemoglobin measurement (mass/volume)on 10-11-2021 Hemoglobin (Bld) [Mass/Vol] 11.5 g/dL 12.0-15.0 [facility] Work Phone: Blood lymphocytes/100 leukoc yteson 10-11-2021 Lymphocytes/100 WBC (Bld) 36.5 % 19-41 [facility] Work Phone: Blood monocytes/100 leukocyt eson 10-11-2021 Monocytes/100 WBC (Bld) 8.7 % 0-10 [facility] Work Phone: Blood platelet mean volumeon 10-11-2021 Platelet mean volume (Bld) [Entitic vol] 10.7 fL 6.2-12.0 [facility] Work Phone: Determination of erythrocyte mean corpuscular volume (MCV)on 10-11-2021 MCV (RBC) [Entitic vol] 98.3 fL 81-99 [facility] Work Phone: Hematocrit Auto (Bld) [Volum e fraction]on 10-11-2021 Hematocrit (Bld) [Volume fraction] 35.0 % 37-47 [facility] Work Phone: Laboratory - Hematology and Cell countson 10-11-2021 Erythrocyte distribution width (RBC) [Entitic vol] 45.0 fL 35.1-43.9 [facility] Work Phone: Erythrocyte distribution width (RBC) [Ratio] 12.4 % 11.6-14.6 [facility] Work Phone: [phone] Immature granulocytes/100 WBC (Bld) 0.500 % 0.0-0.9 [facility] Work Phone: Comment on above: IG% - Immature Granu locytes (promyelocytes, myelocytes and metamyelocytes) > 1% indicates that a LEFT SHIFT is Present. MCH (RBC) [Entitic mass] 32.3 pg 27.0-32.0 [facility] Work Phone: Nucleated RBC/100 WBC (Bld) [Ratio] 0 % 0-5 [facility] Work Phone: [phone] MCHC Auto (RBC) [Mass/Vol]on 10-11-2021 MCHC (RBC) [Mass/Vol] 32.9 g/dL 32-36 [facility] Work Phone: No Panel Informationon 10-11 Bedside Estimated GFR (eGFR) > 60.0000 mL/min >60 [facility] Work Phone: CA 125 Antigen 10.6 U/mL 0.0-38.1 [facility] Work Phone: Comment on above: [facility] [employer] El ectrochemiluminescence Immunoassay(ECLIA)Values obtained with different assay methods or kits cannotbe used interchangeably. Results cannot be interpreted asabsolute evidence of the presence or absence of malignantdisease.Performed at: [employer] [id number] Director: Bucky Boothe PhD, Phone: [phone] Platelets bldon 10-11-2021 Platelets (Bld) [#/Vol] 210 10*3/uL 150-450 [facility] Work Phone: Absolute lymphocyte counton 06-28-2021 Lymphocytes Auto (Unsp spec) [#/Vol] 1.23 10*3/uL 0.83-4.51 [facility] Work Phone: Basophil percentageon 2021 Basophils/100 WBC (Bld) 0.5 % 0-1 [facility] Work Phone: Bilirubin [Mass/Vol] 0.50 mg/dL 0.20-1.00 [facility] Work Phone: Comment on above: For patients on eltr ombopag therapy, use of Dimension [place] TBIL is not recommended. Chloride [Moles/Vol] 108 mmol/L 98-107 [facility] Work Phone: Eosinophils/100 WBC (Bld) 1.5 % 0-5 [facility] Work Phone: Glucose [Mass/Vol] 105 mg/dL 74-106 [facility] Work Phone: Comment on above: Fasting Glucose resu lt from 100 to 125 mg/dL suggests IMPAIRED HOMEOSTASIS per A.D.A. criteria. Neutrophils (Bld) [#/Vol] 2.5 10*3/uL 2.0-7.7 [facility] Work Phone: Neutrophils/100 WBC (Bld) 60.8 % 47-70 [facility] Work Phone: Potassium [Moles/Vol] 4.0 mmol/L 3.5-5.1 [facility] Work Phone: Protein [Mass/Vol] 6.9 g/dL 6.4-8.2 [facility] Work Phone: Sodium [Moles/Vol] 140 mmol/L 136-145 [facility] Work Phone: [phone] WBC (Bld) [#/Vol] 4.1 10*3/uL 4.4-11.0 [facility] Work Phone: Blood erythrocytes count (nu mber/volume)on 06-28-2021 RBC (Bld) [#/Vol] 3.62 10*6/uL 4.2-5.4 [facility] Work Phone: Blood hemoglobin measurement (mass/volume)on 06-28-2021 Hemoglobin (Bld) [Mass/Vol] 11.8 g/dL 12.0-15.0 [facility] Work Phone: Blood lymphocytes/100 leukoc yteson 06-28-2021 Lymphocytes/100 WBC (Bld) 29.9 % 19-41 [facility] Work Phone: Blood monocytes/100 leukocyt eson 06-28-2021 Monocytes/100 WBC (Bld) 7.1 % 0-10 [facility] Work Phone: Blood platelet mean volumeon 06-28-2021 Platelet mean volume (Bld) [Entitic vol] 10.8 fL 6.2-12.0 [facility] Work Phone: [phone] Determination of erythrocyte mean corpuscular volume (MCV)on 06-28-2021 MCV (RBC) [Entitic vol] 98.1 fL 81-99 [facility] Work Phone: Hematocrit Auto (Bld) [Volum e fraction]on 06-28-2021 Hematocrit (Bld) [Volume fraction] 35.5 % 37-47 [facility] Work Phone: Laboratory - Chemistry and C hemistry - challengeon 06-28-2021 ALP [Catalytic activity/Vol] 90 U/L 45-117 [facility] Work Phone: ALT [Catalytic activity/Vol] 20 U/L 13-56 [facility] Work Phone: CO2 [Moles/Vol] 28.0 mmol/L 21.0-32.0 [facility] Work Phone: [phone] Globulin (S) [Mass/Vol] 3.4 g/dL 2.2-4.2 [facility] Work Phone: Urea nitrogen/Creatinine [Mass ratio] 18.9 mg/mg 10-20 [facility] Work Phone: Laboratory - Hematology and Cell countson 06-28-2021 Erythrocyte distribution width (RBC) [Entitic vol] 43.8 fL 35.1-43.9 [facility] Work Phone: [phone] Erythrocyte distribution width (RBC) [Ratio] 12.2 % 11.6-14.6 [facility] Work Phone: Immature granulocytes/100 WBC (Bld) 0.200 % 0.0-0.9 [facility] Work Phone: Comment on above: IG% - Immature Granu locytes (promyelocytes, myelocytes and metamyelocytes) > 1% indicates that a LEFT SHIFT is Present. MCH (RBC) [Entitic mass] 32.6 pg 27.0-32.0 [facility] Work Phone: Nucleated RBC/100 WBC (Bld) [Ratio] 0 % 0-5 [facility] Work Phone: MCHC Auto (RBC) [Mass/Vol]on 06-28-2021 MCHC (RBC) [Mass/Vol] 33.2 g/dL 32-36 [facility] Work Phone: No Panel Informationon 06-28 CA 125 Antigen 10.9 U/mL 0.0-38.1 [facility] Work Phone: Comment on above: [facility] El ectrochemiluminescence Immunoassay(ECLIA)Values obtained with different assay methods or kits cannotbe used interchangeably. Results cannot be interpreted asabsolute evidence of the presence or absence of malignantdisease.Performed at: [address] [id number] Director: Bucky Boothe PhD, Phone: [phone] Estimated Creatinine Clearance Calc 54.70 ml/min [facility] Work Phone: Estimated GFR (MDRD) Amer 86 mL/min >60 [facility] Work Phone: Comment on above: GFR Calc Estimated GFR (MDRD) Non-Af Amer 71 mL/min >60 [facility] Work Phone: Comment on above: Non- GFR Calc Platelets bldon 06-28-2021 Platelets (Bld) [#/Vol] 215 10*3/uL 150-450 [facility] Work Phone: Serum or plasma albumin tim urement (mass/volume)on 06-28-2021 Albumin [Mass/Vol] 3.5 g/dL 3.2-5.0 [facility] Work Phone: Serum or plasma albumin/glob ulin mass ratioon 06-28-2021 Albumin/Globulin [Mass ratio] 1.0 {ratio} 0.9-2.4 [facility] Work Phone: Serum or plasma calcium tim urement (mass/volume)on 06-28-2021 Calcium [Mass/Vol] 8.4 mg/dL 8.5-10.1 [facility] Work Phone: Serum or plasma creatinine m easurement (mass/volume)on 06-28-2021 Creatinine [Mass/Vol] 0.85 mg/dL 0.55-1.02 [facility] Work Phone: Comment on above: The validity of the calculated GFR & GFRAA in patients over 70 years has not been determined. Clinical correlation is essential. Serum or plasma urea nitroge n measurement (mass/volume)on 06-28-2021 Urea nitrogen [Mass/Vol] 16 mg/dL 7-18 [facility] Work Phone: Thin prep Papanicolaou smear with manual screeningon 06-28-2021 Thin prep Papanicolaou smear with manual screening 19 U/L 15-37 [facility] Work Phone: Thin prep Papanicolaou smear with manual screening 4 5-15 [facility] Work Phone: Laboratory - Chemistry and C hemistry - challengeon 09-30-2020 Magnesium [Mass/Vol] 2.3 mg/dL 1.6-2.6 [facility] Basophil percentageon 2020 Cholesterol [Mass/Vol] 226 mg/dL <200 [facility] Comment on above: <200 mg/dL Desirable 200-240 mg/dL Borderline >240 mg/dL High Risk Triglyceride [Mass/Vol] 63 mg/dL <199 [facility] Comment on above: The drugs N-Acetylcy steine and Metamizole may falsely depress this assay.Serum Triglycerides Reference Interval Normal <150 mg/dL Borderline high 150 - 199 mg/dL High 200 - 499 mg/dL Very High > or = 500 mg/dL Direct bilirubinon 1 Bilirubin.direct [Mass/Vol] 0.13 mg/dL 0.00-0.30 [facility] Serum or plasma cholesterol in HDL measurement (mass/volume)on 08-21-2020 Cholesterol in HDL [Mass/Vol] 61 mg/dL >40 [facility] Comment on above: The drugs N-Acetylcy steine and Metamizole may falsely depress this assay. Reference Range HDL <40 mg/dL Low HDL Cholesterol HDL >or= 60 mg/dL High HDL Cholesterol Serum or plasma cholesterol in VLDL measurement (mass/volume)on 08-21-2020 Cholesterol in VLDL [Mass/Vol] 13 mg/dL 5-40 [facility] Serum or plasma low density lipoprotein (LDL) cholesterol measurement (mass/volume)on 08-21-2020 Cholesterol in LDL [Mass/Vol] 152 mg/dL 0-130 [facility] Hemogram w/ Autodiffon 07-16 Abs Baso Cnt 0.0 10*3/uL Normal 0.0-0.2 [facility] Comment on above: Performed By: #### H EMDF #### [facility] [address] [place] [address] Abs Neutrophile Cnt 3.2 10*3/uL Normal 1.8-7.0 [facility] Comment on above: Performed By: #### H EMDF #### [facility] [address] [place] [address] Basophils/100 WBC (Bld) 0.8 % Normal 0.0-2.0 [facility] Comment on above: Performed By: #### H EMDF #### [place] [address] [place] [address] Eosinophils (Bld) [#/Vol] 0.1 10*3/uL Normal 0.0-0.5 [facility] Comment on above: Performed By: #### H EMDF #### [place] [address] [place] [address] Eosinophils/100 WBC (Bld) 1.0 % Normal 1.0-6.0 [facility] Comment on above: Performed By: #### H EMDF #### [place] [address] [place] [address] Erythrocyte distribution width (RBC) [Ratio] 13.2 % Normal 11.5-14.5 [facility] Comment on above: Performed By: #### H EMDF #### [place] [address] [place] [address] Granulocytes/100 WBC (Bld) 63.9 % Normal 40.0-80.0 [facility] Comment on above: Performed By: #### H EMDF #### [place] [address] [place] [address] Hematocrit (Bld) [Volume fraction] 36.3 % Normal 35.0-47.0 [facility] Comment on above: Performed By: #### H EMDF #### [place] [address] [place], [place] Hemoglobin (Bld) [Mass/Vol] 12.2 g/dL Normal 11.7-16.0 [facility] Comment on above: Performed By: #### H EMDF #### [place] [address] [place], [place] Lymphocytes (Bld) [#/Vol] 1.3 10*3/uL Normal 1.0-4.3 [facility] Comment on above: Performed By: #### H EMDF #### [place] [address] [place], [place] Lymphocytes/100 WBC (Bld) 26.1 % Normal 20.0-40.0 [facility] Comment on above: Performed By: #### H EMDF #### [address] MCH (RBC) [Entitic mass] 32.9 pg Normal 26.0-34.0 [facility] Comment on above: Performed By: #### H EMDF #### [address] [place], [place] MCHC 33.7 % Normal 32.0-36.0 [facility] Comment on above: Performed By: #### H EMDF #### [address] MCV (RBC) [Entitic vol] 97.5 fL Normal 79.0-98.0 [facility] Comment on above: Performed By: #### H EMDF #### [place] [place], [place] Monocytes (Bld) [#/Vol] 0.4 10*3/uL Normal 0.0-0.8 [facility] Comment on above: Performed By: #### H EMDF #### [address] Monocytes/100 WBC (Bld) 8.2 % Normal 2.0-10.0 [facility] Comment on above: Performed By: #### H EMDF #### [place] [address] [place], [place] Platelet mean volume (Bld) [Entitic vol] 9.6 fL Normal 7.4-10.4 [facility] Comment on above: Performed By: #### H EMDF #### [facility] [address] [place], [place] Platelets (Bld) [#/Vol] 235 10*3/uL Normal 140-440 [facility] Comment on above: Performed By: #### H EMDF #### [facility] [address] [place], [place] RBC (Bld) [#/Vol] 3.72 10*6/uL Low 3.80-5.20 [facility] Comment on above: Performed By: #### H EMDF #### [place] [address] [place], [place] WBC (Bld) [#/Vol] 5.0 10*3/uL Normal 3.6-10.7 [facility] Comment on above: Performed By: #### H EMDF #### [facility] [address] [place], [place] Medical Cytologyon 1 Medical Cytology [place] [address] DEPARTMENT OF PATHOLOGY AND [facility] LABORATORY MEDICINE [address] [place] [id number] FINAL MEDICAL CYTOLOGY REPORT NAME: CARY SWENSON : 1950 69 Y F BILLING NO.: [id number] LOCATION: [facility] PAC OUTPT 1PAC PROCEDURE 07/16/2020 93 DATE: PHYSICIAN: DENIS RICHEY MD RECEIVED DATE: 07/16/2020 ATTENDING: DENIS RICHEY MD REPORT DATE: 07/17/2020 COPIES TO: CLINICAL DATA: DIAGNOSIS NO MALIGNANT CELLS IDENTIFIED. Comment: ADDITIONAL SURGICAL CASES EXIST FOR THIS SAME DATE OF SERVICE SPECIMEN: PELVIC WASH PROCEDURE(S): WASHINGS GROSS DESCRIPTION: 100 ml, clear fluid, w/cytolyt. Materials Prepared & Examined: Cell Blocks . . . . . . . . . . . . 1 Monolayers . . . . . . . . . . . . 1 DD0 Screened by NATE SINGH M.D. The following statement applies to all immunohistochemistry, in situ hybridization, molecular studies, and immunofluorescence testing. The use of one or more reagents in the above tests is regulated as an analyte specific reagent (ASR). These tests were developed and their performance characteristics determined by the clinical laboratories of [facility]. They have not been cleared by the US Food and Drug Administration (FDA). The FDA has determined that such clearance or approval is not necessary. All the above immunostains were performed on paraffin embedded tissue. Appropriate positive and negative controls (where applicable) were run in parallel with the patient's specimen; these controls showed expected staining pattern, with acceptable intensity of staining. Immunohistochemical assays have not been validated on decalcified tissues. Results should be interpreted with caution given the raised possibility of false negativity on decalcified specimens. Case reviewed at [address] [address]. DEPARTMENT OF PATHOLOGY AND LABORATORY MEDICINE [place], [place] [address] [email or web address] [facility] Op Noteon 07-16-2020 Op Note PATIENT: CARY SWENSON ADMISSION DATE: 07/16/2020 SURGERY DATE: 07/16/2020 DATE OF : 1950 AGE: 69 ADMITTING PHYSICIAN: Denis Richey MD ATTENDING PHYSICIAN: Denis Richey MD DICTATING PHYSICIAN: Denis Richey MD OPERATIVE RECORD PRIMARY CARE PHYSICIAN: Dr. Jose L Wiseman Procedure: ROBOTIC HYSTERECTOMY WITH BSO. 2) bilateral identification intraoperatively of sentinel node 3) bilateral pelvic lymph node dissection Preoperative Diagnosis: Endometrial cancer. Postoperative Diagnosis: Endometrial cancer. Anesthesia: General. Description of Findings: No extrauterine disease was found. Description of Procedure: The patient was identified and brought to the operating room. After administration of general anesthesia, placed in a low lithotomy position using the Yellofin stirrups. The legs were carefully placed to avoid any nerve injury. She underwent abdominoperineal and vaginal prep. Time-out was performed. Antibiotics were given. After being draped, the cervix was injected with ICG green dye at 3 and 9 o'clock per protocol. A manipulator was placed in the uterus with a JUSTYN ring around the cervix and a Peace catheter in the bladder. Using a knife, a small incision made above the umbilicus and using the direct technique, a non-bladed trocar was inserted atraumatically in the abdominal cavity. The area was insufflated with CO2 and under direct vision 2 blunt da Aparna ports were placed in right and left lower quadrant all under direct vision. Intra-abdominal exploration was normal. Trendelenburg was then used to displace the bowel up out of the pelvis. The right and left round ligaments were coagulated and divided. The anterior and posterior leaves of the broad ligament opened. The pararectal and paravesical spaces were made. Using the firefly technology, sentinel lymph nodes were detected on the right and left pelvic sidewalls. Bilateral pelvic lymph node dissection then ensued by identifying the major vascular neurovascular structures of the pelvis and dissecting out the lymph node using monopolar and bipolar cautery. The ovarian vessels were coagulated and divided using bipolar cautery. The bladder was dissected inferiorly. The uterine vessels were coagulated and divided as with the upper cardinal ligaments down the top of the JUSTYN ring where 360-degree colpotomy incision was then made. The uterus, cervix, tubes, and ovaries followed by the lymph nodes removed out through the vagina. The cuff was closed using a running 0 V-Loc suture. The pelvis was irrigated. Hemostasis was noted. All instruments were removed from the abdominal cavity. The da Aparna was undocked. The trocars removed and the defects in the skin were closed with subcuticular 4-0 Monocryl and Dermabond. The Peace catheter at 600 cc of clear urine noted. All sponges, needles, and instruments was correct to the surgeon at the end the case. cc: Dr. Uma Raphael, [place], [place] Dr. Jose L Wiseman [facility] Job ID: [id number] Denis Richey MD DOD:07/16/2020 12:58 P SA/dsk DOT:07/16/2020 01:35 P Job Number: [id number] Document Number: [id number] cc: Denis Richey MD [address] [place] [id number] [facility] Surgical Pathologyon 021 Surgical Pathology [id number] [facility] DEPARTMENT OF [facility] PATHOLOGY AND LABORATORY MEDICINE [address] [place] [address] FINAL SURGICAL PATHOLOGY REPORT NAME: CARY SWENSON : 1950 69 Y F BILLING NO.: [id number] LOCATION: [address] 93 PROCEDURE 07/16/2020 DATE: SURGEON: DENIS RICHEY MD RECEIVED 07/16/2020 DATE: ATTENDING: DENIS RICHEY MD REPORT DATE: 07/20/2020 COPIES TO: DIAGNOSIS: A. PERITONEUM, BIOPSY - BENIGN FIBROUS TISSUE Comment: Negative for malignancy. B. UTERUS, HYSTERECTOMY AND SALPINGO-OOPHORECTOMY - SEROUS CARCINOMA. SEE BELOW. C. LYMPH NODES, LEFT PELVIC SENTINEL, EXCISION - ONE OF THREE LYMPH NODES WITH METASTATIC MALIGNANCY (1/3) D. LYMPH NODES, RIGHT PELVIC SENTINEL, EXCISION - THREE LYMPH NODES, NEGATIVE FOR METASTATIC MALIGNANCY (0/3) SPECIMEN Procedure: Total hysterectomy and bilateral salpingo-oophorectomy Hysterectomy Type: Laparoscopic Specimen Integrity: Opened TUMOR Tumor Site: Endometrium Histologic Type: Serous carcinoma Histologic Grade: Not applicable Tumor Size: Greatest Dimension (Centimeters) - 0.5 cm Myometrial Invasion: Present Depth of invasion: 1mm Thickness of myometrium: Adenomyosis: Not identified Uterine Serosa Involvement: Not identified Lower Uterine Segment Involvement: Not identified Cervical Stromal Involvement: Not identified Other Tissue / Organ Involvement: Not identified Peritoneal Ascitic Fluid: Not submitted / unknown Lymphovascular Invasion: Not identified LYMPH NODES Number of Pelvic Nodes with Macrometastasis: 0 Number of Pelvic Nodes with Micrometastasis: 1 Number of Pelvic Nodes with Isolated Tumor Cells: 0 Laterality of Pelvic Node(s) with Tumor Cells: Right, Left Total Number of Pelvic Nodes Examined: 0 Total Number of Para-aortic Nodes Examined: 0 PATHOLOGIC STAGE CLASSIFICATION (pTNM, AJCC 8th Edition) Note: Reporting of pT, pN, and (when applicable) pM categories is based on information available to the pathologist at the time the report is issued. As per the AJCC (Chapter 1, 8th Ed.) it is the managing physician's responsibility to establish the final pathologic stage based upon all pertinent information, including but potentially not limited to this pathology report. 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 CLINICAL INFORMATION: Endometrial cancer SPECIMEN: (A) PERITONEUM, BIOPSY (B) OVARY, WITH/WITHOUT TUBE (C) SENTINEL LYMPH NODE, ALL SITES (D) SENTINEL LYMPH NODE, ALL SITES GROSS DESCRIPTION: A. Received in formalin labeled peritoneal nodule is a segment of pink-gentile tissue measuring 0.4 x 0.4 cm. Specimen is entirely submitted in a single cassette. B. Received in formalin labeled uterus, cervix, bilateral tubes, and ovaries is a previously bivalved uterus with attached cervix and bilateral fallopian tubes and ovaries. Uterus and cervix together measure 8.5 x 4.5 x 2.5 cm. The uterus and cervix together weigh 72 grams. Serosal surface is finely wrinkled to smooth and pink-gentile. The cervical mucosa is glistening, smooth, and pink-gentile. The cervical os upon reconstruction measures 0.8 cm in length. The squamocolumnar junction appears distinct. The endocervical canal measures approximately 2 cm in length while the endometrial cavity measures 4 cm in length and up to 3 cm in width. The endometrium is dial with superficial hemorrhage and focal, scattered, slightly raised nodular to granular-appearing areas. The endometrium averages approximately 0.2 cm in thickness. The scattered areas of nodularity and granularity are present mainly in the upper fundus both anteriorly and posteriorly. Within the lower uterine segment there is an area of nodularity identified which measures approximately 0.6 x 1 cm. It lies 1.5 cm above the squamocolumnar junction. It measures up to 0.3 cm in thickness. The myometrium measures 0.7 cm in thickness. The remaining endometrium averages 0.2 cm in thickness. Sectioning through the myometrium demonstrates no bulging, nodular, mass lesions. The left ovary measures 2 x 1 x 0.8 cm and weighs 2 grams. External surface is wrinkled, yellow-dial to pink-gentile. Cut surfaces are pink-dial with white, chalky areas. The attached fallopian tube measures 4.5 cm in length and 0.7 cm in diameter. Fimbriae are present at the distal end and are free. Upon transection a pinpoint lumen is identified. T (more content not included)... Normal [employer] TS GELon 07-16-2020 TS GEL ABO Group: A Rh, Gel: NEG Antibody Screen Gel: NEG Normal [facility] Comment on above: Performed By: #### T SGL #### [facility] Vital Signs Date Time Vital Sign Value Performing Clinician Facility 01-03-2025 13:57-0400 Body temperature 97.59 [degF] Chair 3-2 [facility] 01-03-2025 13:57-0400 Diastolic blood pressure 84 mm[Hg] Chair 3-2 [facility] 01-03-2025 13:57-0400 Heart rate 72 /min Chair 3-2 [facility] 01-03-2025 13:57-0400 Respiratory rate 14 /min Chair 3-2 [facility] 01-03-2025 13:57-0400 Systolic blood pressure 167 mm[Hg] Chair 3-2 [facility] 11-22-2024 13:26-0400 Diastolic blood pressure 85 mm[Hg] Chair 20 [facility] 11-22-2024 13:26-0400 Heart rate 69 /min Chair 20 [facility] 11-22-2024 13:26-0400 Respiratory rate 14 /min Chair 20 [facility] 11-22-2024 13:26-0400 Systolic blood pressure 179 mm[Hg] Chair 20 [facility] 11-22-2024 11:31-0400 Body mass index (BMI) [Ratio] 28.06 kg/m2 Rosie Fuller LOGISTICAL ENGINEER - [employer] DEVELOPER Work Phone: [facility] 11-22-2024 11:31-0400 Body weight 71.85 kg Rosie Fuller LOGISTICAL ENGINEER - [employer] DEVELOPER Work Phone: [facility] 11-22-2024 11:31-0400 Diastolic blood pressure 80 mm[Hg] Rosie Fuller LOGISTICAL ENGINEER - [employer] DEVELOPER Work Phone: [facility] 11-22-2024 11:31-0400 Heart rate 88 /min Rosie Fuller LOGISTICAL ENGINEER - [employer] DEVELOPER Work Phone: [facility] 11-22-2024 11:31-0400 Systolic blood pressure 170 mm[Hg] Rosie Fuller LOGISTICAL ENGINEER - [employer] DEVELOPER Work Phone: [facility] 10-11-2024 14:15-0400 Body height 160 cm Chair 2-2 [facility] 10-11-2024 14:15-0400 Body mass index (BMI) [Ratio] 27.63 kg/m2 [facility] 22 [facility] 10-11-2024 14:15-0400 Body temperature 97.9 [degF] [address] [facility] 10-11-2024 14:15-0400 Body weight 70.76 kg [address] [facility] 10-11-2024 14:15-0400 Diastolic blood pressure 87 mm[Hg] Chair 22 [facility] 10-11-2024 14:15-0400 Heart rate 69 /min [address] [facility] 10-11-2024 14:15-0400 Respiratory rate 16 /min [address] [facility] 10-11-2024 14:15-0400 SaO2% (BldA) [Mass fraction] 97 % [address] 10-11-2024 14:15-0400 Systolic blood pressure 157 mm[Hg] [address] [facility] 08-30-2024 09:53-0400 Body mass index (BMI) [Ratio] 28.17 kg/m2 [address] 08-30-2024 09:53-0400 Body temperature 98.2 [degF] [address] 08-30-2024 09:53-0400 Body weight 72.[address] 08-30-2024 09:53-0400 Diastolic blood pressure 70 mm[Hg] [address] 08-30-2024 09:53-0400 Heart rate 72 /min [address] 08-30-2024 09:53-0400 Respiratory rate 16 /min [address] 08-30-2024 09:53-0400 SaO2% (BldA) [Mass fraction] 95 % [address] 08-30-2024 09:53-0400 Systolic blood pressure 155 mm[Hg] [address] [facility] 07-19-2024 11:35-0400 Body height 160 cm [facility] [address] 07-19-2024 11:35-0400 Body mass index (BMI) [Ratio] 28.7 kg/m2 [address] 07-19-2024 11:35-0400 Body temperature 97.3 [degF] Chair 3-4 [facility] 07-19-2024 11:35-0400 Body weight 73.48 kg Chair 3-4 [facility] 07-19-2024 11:35-0400 Diastolic blood pressure 81 mm[Hg] Chair 3-4 [facility] 07-19-2024 11:35-0400 Heart rate 73 /min Chair 3-4 [facility] 07-19-2024 11:35-0400 Respiratory rate 16 /min Chair 3-4 [facility] 07-19-2024 11:35-0400 SaO2% (BldA) [Mass fraction] 95 % Chair 3-4 [facility] 07-19-2024 11:35-0400 Systolic blood pressure 150 mm[Hg] Chair 3-4 [facility] 06-28-2024 13:56-0400 Diastolic blood pressure 83 mm[Hg] Chair 10 [facility] 06-28-2024 13:56-0400 Heart rate 77 /min Chair 10 [facility] 06-28-2024 13:56-0400 Respiratory rate 16 /min Chair 10 [facility] 06-28-2024 13:56-0400 Systolic blood pressure 145 mm[Hg] Chair 10 [facility] 06-28-2024 11:00-0400 SaO2% (BldA) [Mass fraction] 96 % Chair 10 [facility] 06-28-2024 10:29-0400 Body height 160 cm Denis Richey MD Work Phone: [facility] 06-28-2024 10:29-0400 Body mass index (BMI) [Ratio] 28.46 kg/m2 Denis Richey MD Work Phone: [facility] 06-28-2024 10:29-0400 Body weight 72.85 kg Denis Richey MD Work Phone: [facility] 06-28-2024 10:29-0400 Diastolic blood pressure 86 mm[Hg] Denis Richey MD Work Phone: [facility] 06-28-2024 10:29-0400 Heart rate 76 /min Denis Richey MD Work Phone: [facility] 06-28-2024 10:29-0400 SaO2% (BldA) [Mass fraction] 98 % Denis Richey MD Work Phone: [facility] 06-28-2024 10:29-0400 Systolic blood pressure 170 mm[Hg] Denis Richey MD Work Phone: [facility] 06-07-2024 15:37-0400 Diastolic blood pressure 61 mm[Hg] Chair 07 [facility] 06-07-2024 15:37-0400 Heart rate 71 /min Chair 07 [facility] 06-07-2024 15:37-0400 Systolic blood pressure 145 mm[Hg] Chair 07 [facility] 06-07-2024 12:34-0400 Body temperature 97.39 [degF] Chair 07 [facility] 06-07-2024 12:34-0400 Respiratory rate 18 /min Chair 07 [facility] 06-07-2024 11:25-0400 Body height 160 cm Renay Lucas LOGISTICAL ENGINEER - [employer] DEVELOPER Work Phone: [facility] 06-07-2024 11:25-0400 Body mass index (BMI) [Ratio] 27.85 kg/m2 Renay Lucas LOGISTICAL ENGINEER - [employer] DEVELOPER Work Phone: [facility] 06-07-2024 11:25-0400 Body weight 71.31 kg Renay Lucas LOGISTICAL ENGINEER - [employer] DEVELOPER Work Phone: [facility] 06-07-2024 11:25-0400 Diastolic blood pressure 73 mm[Hg] Renay Lucas LOGISTICAL ENGINEER - [employer] DEVELOPER Work Phone: [facility] 06-07-2024 11:25-0400 Heart rate 77 /min Renay Lucas LOGISTICAL ENGINEER - [employer] DEVELOPER Work Phone: [facility] 06-07-2024 11:25-0400 Systolic blood pressure 169 mm[Hg] Renay Lucas LOGISTICAL ENGINEER - [employer] DEVELOPER Work Phone: [facility] 05-17-2024 15:35-0500 Diastolic blood pressure 81 mm[Hg] Chair 08 [facility] 02-21-2025 15:35-0500 Heart rate 73 /min Chair 08 [facility] 05-17-2024 15:35-0500 Respiratory rate 16 /min Chair 08 [facility] 05-17-2024 15:35-0500 Systolic blood pressure 158 mm[Hg] Chair 08 [facility] 05-17-2024 13:04-0500 Body mass index (BMI) [Ratio] 27.5 kg/m2 Chair 08 [facility] 05-17-2024 13:04-0500 Body temperature 96.4 [degF] Chair 08 [facility] 05-17-2024 13:04-0500 Body weight 70.4 kg Chair 08 [facility] 05-08-2024 14:21-0500 Diastolic blood pressure 87 mm[Hg] Denis Richey MD Work Phone: [facility] 05-08-2024 14:21-0500 Systolic blood pressure 163 mm[Hg] Denis Richey MD Work Phone: [facility] 05-08-2024 13:33-0500 Body height 160 cm Denis Richey MD Work Phone: [facility] 05-08-2024 13:33-0500 Body mass index (BMI) [Ratio] 27.5 kg/m2 Denis Richey MD Work Phone: [facility] 05-08-2024 13:33-0500 Body weight 70.4 kg Denis Richey MD Work Phone: [facility] 05-08-2024 13:33-0500 Heart rate 62 /min Denis Richey MD Work Phone: [facility] 05-08-2024 13:33-0500 SaO2% (BldA) [Mass fraction] 93 % Denis Richey MD Work Phone: [facility] 04-17-2024 09:37-0500 Body temperature 97 [degF] Denis Richey MD Work Phone: [facility] 04-17-2024 09:37-0500 Diastolic blood pressure 72 mm[Hg] Denis Richey MD Work Phone: [facility] 04-17-2024 09:37-0500 Heart rate 81 /min Denis Richey MD Work Phone: [facility] 04-17-2024 09:37-0500 Respiratory rate 12 /min Denis Richey MD Work Phone: [facility] 04-17-2024 09:37-0500 SaO2% (BldA) [Mass fraction] 95 % Denis Richey MD Work Phone: [facility] 04-17-2024 09:37-0500 Systolic blood pressure 131 mm[Hg] Denis Richey MD Work Phone: [facility] 04-16-2024 12:23-0500 Body height 160 cm Denis Richey MD Work Phone: [facility] 04-16-2024 12:23-0500 Body mass index (BMI) [Ratio] 26.57 kg/m2 Denis Richey MD Work Phone: [facility] 04-16-2024 12:23-0500 Body weight 68.04 kg Denis Richey MD Work Phone: [facility] 03-29-2024 16:16-0500 Diastolic blood pressure 89 mm[Hg] Chair 15 [facility] 03-29-2024 16:16-0500 Heart rate 74 /min Chair 15 [facility] 03-29-2024 16:16-0500 Respiratory rate 18 /min Chair 15 [facility] 03-29-2024 16:16-0500 Systolic blood pressure 181 mm[Hg] Chair 15 [facility] 03-29-2024 14:24-0500 Body height 160 cm Denis Richey MD Work Phone: [facility] 03-29-2024 14:24-0500 Body mass index (BMI) [Ratio] 26.57 kg/m2 Denis Richey MD Work Phone: [facility] 03-29-2024 14:24-0500 Body weight 68.04 kg Denis Richey MD Work Phone: [facility] 03-29-2024 14:24-0500 Diastolic blood pressure 82 mm[Hg] Denis Richey MD Work Phone: [facility] 03-29-2024 14:24-0500 Heart rate 76 /min Denis Richey MD Work Phone: [facility] 03-29-2024 14:24-0500 Systolic blood pressure 197 mm[Hg] Denis Richey MD Work Phone: [facility] 03-01-2024 14:28-0500 Body height 160 cm Chair 3-3 [facility] 03-01-2024 14:28-0500 Body mass index (BMI) [Ratio] 26.57 kg/m2 Chair 3-3 [facility] 03-01-2024 14:28-0500 Body temperature 97 [degF] Chair 3-3 [facility] 03-01-2024 14:28-0500 Body weight 68.04 kg Chair 3-3 [facility] 03-01-2024 14:28-0500 Diastolic blood pressure 87 mm[Hg] Chair 3-3 [facility] 03-01-2024 14:28-0500 Heart rate 71 /min Chair 3-3 [facility] 03-01-2024 14:28-0500 Respiratory rate 16 /min Chair 3-3 [facility] 03-01-2024 14:28-0500 SaO2% (BldA) [Mass fraction] 96 % Chair 3-3 [facility] 03-01-2024 14:28-0500 Systolic blood pressure 160 mm[Hg] Chair 3-3 [facility] 02-02-2024 15:40-0500 Diastolic blood pressure 76 mm[Hg] Chair 03 [facility] 02-02-2024 15:40-0500 Heart rate 73 /min Chair 03 [facility] 02-02-2024 15:40-0500 Respiratory rate 16 /min Chair 03 [facility] 02-02-2024 15:40-0500 Systolic blood pressure 156 mm[Hg] Chair 03 [facility] 02-02-2024 14:20-0500 Body temperature 96.69 [degF] Chair 03 [facility] 02-02-2024 13:31-0500 Body height 160 cm Denis Richey MD Work Phone: [facility] 02-02-2024 13:31-0500 Body mass index (BMI) [Ratio] 27.99 kg/m2 Denis Richey MD Work Phone: [facility] 02-02-2024 13:31-0500 Body weight 71.67 kg Denis Richey MD Work Phone: [facility] 02-02-2024 13:31-0500 Diastolic blood pressure 82 mm[Hg] Denis Richey MD Work Phone: [facility] 02-02-2024 13:31-0500 Heart rate 69 /min Denis Richey MD Work Phone: [facility] 02-02-2024 13:31-0500 Systolic blood pressure 173 mm[Hg] Denis Richey MD Work Phone: [facility] 12-15-2023 13:33-0400 Body height 160 cm Chair 1-1 [facility] 12-15-2023 13:33-0400 Body mass index (BMI) [Ratio] 27.44 kg/m2 Chair 1-1 [facility] 12-15-2023 13:33-0400 Body temperature 97.81 [degF] Chair 1-1 [facility] 12-15-2023 13:33-0400 Body weight 70.26 kg Chair 1-1 [facility] 12-15-2023 13:33-0400 Diastolic blood pressure 74 mm[Hg] Chair 1-1 [facility] 12-15-2023 13:33-0400 Heart rate 66 /min Chair 1-1 [facility] 12-15-2023 13:33-0400 Respiratory rate 16 /min Chair 1-1 [facility] 12-15-2023 13:33-0400 SaO2% (BldA) [Mass fraction] 97 % Chair 1-1 [facility] 12-15-2023 13:33-0400 Systolic blood pressure 158 mm[Hg] Chair 1-1 [facility] 11-24-2023 13:07-0400 Body height 160 cm Chair 1-1 [facility] 11-24-2023 13:07-0400 Body mass index (BMI) [Ratio] 27.37 kg/m2 Chair 1-1 [facility] 11-24-2023 13:07-0400 Body temperature 97.59 [degF] Chair 1-1 [facility] 11-24-2023 13:07-0400 Body weight 70.08 kg Chair 1-1 [facility] 11-24-2023 13:07-0400 Diastolic blood pressure 67 mm[Hg] Chair 1-1 [facility] 11-24-2023 13:07-0400 Heart rate 80 /min Chair 1-1 [facility] 11-24-2023 13:07-0400 Respiratory rate 16 /min Chair 1-1 [facility] 11-24-2023 13:07-0400 SaO2% (BldA) [Mass fraction] 95 % Chair 1-1 [facility] 11-24-2023 13:07-0400 Systolic blood pressure 139 mm[Hg] Chair 1-1 [facility] 11-03-2023 15:24-0400 Diastolic blood pressure 98 mm[Hg] Chair 10 [facility] 11-03-2023 15:24-0400 Heart rate 67 /min Chair 10 [facility] 11-03-2023 15:24-0400 Respiratory rate 16 /min Chair 10 [facility] 11-03-2023 15:24-0400 Systolic blood pressure 191 mm[Hg] Chair 10 [facility] 11-03-2023 13:30-0400 Body height 160 cm [employer] [facility] 11-03-2023 13:30-0400 Body mass index (BMI) [Ratio] 27.1 kg/m2 [facility] 11-03-2023 13:30-0400 Body weight 69.4 kg [facility] 11-03-2023 13:30-0400 Diastolic blood pressure 78 mm[Hg] [facility] 11-03-2023 13:30-0400 Heart rate 64 /min [facility] 11-03-2023 13:30-0400 Systolic blood pressure 174 mm[Hg] [facility] 10-13-2023 13:10-0400 Body height 160 cm Chair 1-1 [facility] 10-13-2023 13:10-0400 Body mass index (BMI) [Ratio] 27.1 kg/m2 Chair 1-1 [facility] 10-13-2023 13:10-0400 Body temperature 97 [degF] Chair 1-1 [facility] 10-13-2023 13:10-0400 Body weight 69.4 kg Chair 1-1 [facility] 10-13-2023 13:10-0400 Diastolic blood pressure 78 mm[Hg] Chair 1-1 [facility] 10-13-2023 13:10-0400 Heart rate 70 /min Chair 1-1 [facility] 10-13-2023 13:10-0400 Respiratory rate 16 /min Chair 1-1 [facility] 10-13-2023 13:10-0400 SaO2% (BldA) [Mass fraction] 95 % Chair 1-1 [facility] 10-13-2023 13:10-0400 Systolic blood pressure 131 mm[Hg] Chair 1-1 [facility] 09-22-2023 13:09-0400 Body height 160 cm Chair 2-1 [facility] 09-22-2023 13:09-0400 Body mass index (BMI) [Ratio] 27.29 kg/m2 Chair 2-1 [facility] 09-22-2023 13:09-0400 Body temperature 98.1 [degF] Chair 2-1 [facility] 09-22-2023 13:09-0400 Body weight 69.85 kg Chair 2-1 [facility] 09-22-2023 13:09-0400 Diastolic blood pressure 84 mm[Hg] Chair 2-1 [facility] 09-22-2023 13:09-0400 Heart rate 73 /min Chair 2-1 [facility] 09-22-2023 13:09-0400 Respiratory rate 16 /min Chair 2-1 [facility] 09-22-2023 13:09-0400 SaO2% (BldA) [Mass fraction] 95 % Chair 2-1 [facility] 09-22-2023 13:09-0400 Systolic blood pressure 152 mm[Hg] Chair 2-1 [facility] 09-01-2023 13:30-0400 Body height 160 cm Chair 1-1 [facility] 09-01-2023 13:30-0400 Body mass index (BMI) [Ratio] 27.67 kg/m2 Chair 1-1 [facility] 09-01-2023 13:30-0400 Body temperature 97.3 [degF] Chair 1-1 [facility] 09-01-2023 13:30-0400 Body weight 70.85 kg Chair 1-1 [facility] 09-01-2023 13:30-0400 Diastolic blood pressure 79 mm[Hg] Chair 1-1 [facility] 09-01-2023 13:30-0400 Heart rate 63 /min Chair 1-1 [facility] 09-01-2023 13:30-0400 Respiratory rate 16 /min Chair 1-1 [facility] 09-01-2023 13:30-0400 SaO2% (BldA) [Mass fraction] 95 % Chair 1-1 [facility] 09-01-2023 13:30-0400 Systolic blood pressure 145 mm[Hg] Chair 1-1 [facility] 08-07-2023 12:56-0400 Body height 160 cm [employer] Work Phone: [facility] 08-07-2023 12:56-0400 Body mass index (BMI) [Ratio] 27.63 kg/m2 [employer] Work Phone: [facility] 08-07-2023 12:56-0400 Body weight 70.76 kg [employer] Work Phone: [facility] 07-21-2023 14:00-0400 Body height 161.3 cm Chair 1-2 [facility] 07-21-2023 14:00-0400 Body mass index (BMI) [Ratio] 27.32 kg/m2 Chair 1-2 [facility] 07-21-2023 14:00-0400 Body temperature 97 [degF] Chair 1-2 [facility] 07-21-2023 14:00-0400 Body weight 71.08 kg Chair 1-2 [facility] 07-21-2023 14:00-0400 Diastolic blood pressure 79 mm[Hg] Chair 1-2 [facility] 07-21-2023 14:00-0400 Heart rate 67 /min Chair 1-2 [facility] 07-21-2023 14:00-0400 Respiratory rate 16 /min Chair 1-2 [facility] 07-21-2023 14:00-0400 SaO2% (BldA) [Mass fraction] 98 % Chair 1-2 [facility] 07-21-2023 14:00-0400 Systolic blood pressure 178 mm[Hg] Chair 1-2 [facility] 06-30-2023 15:17-0400 Diastolic blood pressure 84 mm[Hg] Chair 18 [facility] 06-30-2023 15:17-0400 Heart rate 73 /min Chair 18 [facility] 06-30-2023 15:17-0400 Systolic blood pressure 151 mm[Hg] Chair 18 [facility] 06-30-2023 13:25-0400 Body mass index (BMI) [Ratio] 26.15 kg/m2 Lupe Encarnacoinod LOGISTICAL ENGINEER - [employer] DEVELOPER Work Phone: [facility] 06-30-2023 13:25-0400 Body weight 68.04 kg Lupe Marlon LOGISTICAL ENGINEER - [employer]ELOPER Work Phone: [facility] 06-30-2023 13:25-0400 Diastolic blood pressure 80 mm[Hg] Lupe Marlon LOGISTICAL ENGINEER - [employer] DEVELOPER Work Phone: [facility] 06-30-2023 13:25-0400 Heart rate 85 /min Lupe Encarnacionod LOGISTICAL ENGINEER - [employer] DEVELOPER Work Phone: [facility] 06-30-2023 13:25-0400 Systolic blood pressure 153 mm[Hg] Lupe Marlon LOGISTICAL ENGINEER - [employer]ELOPER Work Phone: [facility] 06-09-2023 14:08-0400 Body temperature 97.2 [degF] Chair 1-2 [facility] 06-09-2023 14:08-0400 Diastolic blood pressure 77 mm[Hg] Chair 1-2 [facility] 06-09-2023 14:08-0400 Heart rate 63 /min Chair 1-2 [facility] 06-09-2023 14:08-0400 Respiratory rate 16 /min Chair 1-2 [facility] 06-09-2023 14:08-0400 SaO2% (BldA) [Mass fraction] 97 % Chair 1-2 [facility] 06-09-2023 14:08-0400 Systolic blood pressure 146 mm[Hg] Chair 1-2 [facility] 06-09-2023 14:07-0400 Body height 161.3 cm Chair 1-2 [facility] 06-09-2023 14:07-0400 Body mass index (BMI) [Ratio] 27.01 kg/m2 Chair 1-2 [facility] 06-09-2023 14:07-0400 Body weight 70.26 kg Chair 1-2 [facility] 05-19-2023 11:31-0500 Body height 161.3 cm Denis Richey MD Work Phone: [facility] 05-19-2023 11:31-0500 Body mass index (BMI) [Ratio] 27.69 kg/m2 Denis Richey MD Work Phone: [facility] 05-19-2023 11:31-0500 Body weight 72.03 kg Denis Richey MD Work Phone: [facility] 05-19-2023 11:31-0500 Diastolic blood pressure 89 mm[Hg] Denis Richey MD Work Phone: [facility] 05-19-2023 11:31-0500 Heart rate 84 /min Denis Richey MD Work Phone: [facility] 05-19-2023 11:31-0500 Systolic blood pressure 184 mm[Hg] Denis Richey MD Work Phone: [facility] 04-28-2023 14:20-0500 Body height 161.3 cm Chair 1-2 [facility] 04-28-2023 14:20-0500 Body mass index (BMI) [Ratio] 27.22 kg/m2 [facility] 1-2 [facility] 04-28-2023 14:20-0500 Body temperature 97 [degF] [facility] 1-2 [facility] 04-28-2023 14:20-0500 Body weight 70.81 kg Chair 1-2 [facility] 04-28-2023 14:20-0500 Diastolic blood pressure 81 mm[Hg] Chair 1-2 [facility] 04-28-2023 14:20-0500 Heart rate 69 /min Chair 1-2 [facility] 04-28-2023 14:20-0500 Respiratory rate 16 /min [facility] 1-2 [facility] 04-28-2023 14:20-0500 SaO2% (BldA) [Mass fraction] 98 % Chair 1-2 [facility] 04-28-2023 14:20-0500 Systolic blood pressure 149 mm[Hg] Chair 1-2 [facility] 04-07-2023 15:18-0500 Diastolic blood pressure 102 mm[Hg] Chair 02 [facility] 04-07-2023 15:18-0500 Heart rate 70 /min Chair 02 [facility] 04-07-2023 15:18-0500 Respiratory rate 16 /min Chair 02 [facility] 04-07-2023 15:18-0500 Systolic blood pressure 192 mm[Hg] Chair 02 [facility] 02-24-2023 15:44-0500 Diastolic blood pressure 92 mm[Hg] Chair 07 [facility] 02-24-2023 15:44-0500 Heart rate 75 /min Chair 07 [facility] 02-24-2023 15:44-0500 Systolic blood pressure 182 mm[Hg] Chair 07 [facility] 02-24-2023 14:07-0500 Body temperature 96.69 [degF] Chair 07 [facility] 02-24-2023 14:07-0500 Respiratory rate 18 /min Chair 07 [facility] 02-24-2023 13:22-0500 Body height 160 cm Denis Richey MD Work Phone: [facility] 02-24-2023 13:22-0500 Body mass index (BMI) [Ratio] 27.46 kg/m2 Denis Richey MD Work Phone: [facility] 02-24-2023 13:22-0500 Body weight 70.31 kg Denis Richey MD Work Phone: [facility] 02-24-2023 13:22-0500 Diastolic blood pressure 70 mm[Hg] Denis Richey MD Work Phone: [facility] 02-24-2023 13:22-0500 Heart rate 80 /min Denis Richey MD Work Phone: [facility] 02-24-2023 13:22-0500 Systolic blood pressure 157 mm[Hg] Denis Richey MD Work Phone: [facility] 02-03-2023 17:19-0500 Diastolic blood pressure 84 mm[Hg] [facility] 11 [facility] 02-03-2023 17:19-0500 Heart rate 76 /min [facility] 11 [facility] 02-03-2023 17:19-0500 Systolic blood pressure 154 mm[Hg] [facility] 11 [facility] 01-26-2023 09:59-0400 Body height 161.3 cm Lorena DellaMalcolmalissoncristiano DO Work Phone: [facility] 01-26-2023 09:59-0400 Body mass index (BMI) [Ratio] 26.15 kg/m2 Lorena Moranu DO Work Phone: [facility] 01-26-2023 09:59-0400 Body weight 68.04 kg Lorena DellaElliotcristiano DO Work Phone: [facility] 01-20-2023 10:05-0400 Diastolic blood pressure 67 mm[Hg] Mary Herrera MD Work Phone: [facility] 01-20-2023 10:05-0400 Heart rate 67 /min Mary Herrera MD Work Phone: [facility] 01-20-2023 10:05-0400 Systolic blood pressure 127 mm[Hg] Mary Herrera MD Work Phone: [facility] 01-20-2023 09:29-0400 Body height 161.3 cm Mary Herrera MD Work Phone: [facility] 01-20-2023 09:29-0400 Body mass index (BMI) [Ratio] 26.92 kg/m2 Mary Herrera MD Work Phone: [facility] 01-20-2023 09:29-0400 Body temperature 97.81 [degF] Mary Herrera MD Work Phone: [facility] 01-20-2023 09:29-0400 Body weight 70.03 kg Mary Herrera MD Work Phone: [facility] 01-13-2023 14:19-0400 Diastolic blood pressure 88 mm[Hg] [address] [facility] 01-13-2023 14:19-0400 Respiratory rate 16 /min Chair 11 [facility] 01-13-2023 14:19-0400 Systolic blood pressure 168 mm[Hg] Chair 11 [facility] 01-13-2023 12:16-0400 Body temperature 97.5 [degF] Chair 11 [facility] 01-13-2023 12:16-0400 Heart rate 71 /min Chair 11 [facility] 01-13-2023 11:37-0400 Body height 160 cm Ricarda Drew LOGISTICAL ENGINEER - [employer] Work Phone: [facility] 01-13-2023 11:37-0400 Body mass index (BMI) [Ratio] 26.75 kg/m2 Ricarda Drew LOGISTICAL ENGINEER - [employer] Work Phone: [facility] 01-13-2023 11:37-0400 Body weight 68.49 kg Ricarda Drew LOGISTICAL ENGINEER - [employer] Work Phone: [facility] 01-13-2023 11:37-0400 Diastolic blood pressure 83 mm[Hg] Ricarda Drew LOGISTICAL ENGINEER - [employer] Work Phone: [facility] 01-13-2023 11:37-0400 Heart rate 64 /min Ricarda Drew LOGISTICAL ENGINEER - [employer] Work Phone: [facility] 01-13-2023 11:37-0400 Systolic blood pressure 188 mm[Hg] Ricarda Drew LOGISTICAL ENGINEER - [employer] Work Phone: [facility] 12-23-2022 14:51-0400 Body temperature 96.4 [degF] Chair 19 [facility] 12-23-2022 14:51-0400 Diastolic blood pressure 81 mm[Hg] Chair 19 [facility] 12-23-2022 14:51-0400 Heart rate 65 /min Chair 19 [facility] 12-23-2022 14:51-0400 Respiratory rate 16 /min Chair 19 [facility] 12-23-2022 14:51-0400 Systolic blood pressure 150 mm[Hg] Chair 19 [facility] 12-02-2022 14:14-0400 Diastolic blood pressure 78 mm[Hg] Bed 4 [facility] 12-02-2022 14:14-0400 Heart rate 68 /min Bed 4 [facility] 12-02-2022 14:14-0400 Respiratory rate 16 /min Bed 4 [facility] 12-02-2022 14:14-0400 Systolic blood pressure 168 mm[Hg] Bed 4 [facility] 12-02-2022 13:05-0400 Body temperature 96.4 [degF] Bed 4 [facility] 12-02-2022 12:24-0400 Body height 162.6 cm Denis Richey MD Work Phone: [facility] 12-02-2022 12:24-0400 Body mass index (BMI) [Ratio] 26.09 kg/m2 Denis Richey MD Work Phone: [facility] 12-02-2022 12:24-0400 Body weight 68.95 kg Denis Richey MD Work Phone: [facility] 12-02-2022 12:24-0400 Diastolic blood pressure 87 mm[Hg] Denis Richey MD Work Phone: [facility] 12-02-2022 12:24-0400 Heart rate 65 /min Denis Richey MD Work Phone: [facility] 12-02-2022 12:24-0400 Systolic blood pressure 168 mm[Hg] Denis Richey MD Work Phone: [facility] 11-11-2022 13:32-0400 Diastolic blood pressure 80 mm[Hg] Chair 05 [facility] 11-11-2022 13:32-0400 Heart rate 66 /min Chair 05 [facility] 11-11-2022 13:32-0400 Respiratory rate 16 /min Chair 05 [facility] 11-11-2022 13:32-0400 Systolic blood pressure 175 mm[Hg] Chair 05 [facility] 11-11-2022 12:09-0400 Body mass index (BMI) [Ratio] 26.13 kg/m2 Chair 05 [facility] 11-11-2022 12:09-0400 Body temperature 97.11 [degF] Chair 05 [facility] 11-11-2022 12:09-0400 Body weight 69.04 kg Chair 05 [facility] 10-21-2022 13:45-0400 Diastolic blood pressure 82 mm[Hg] Chair 15 [facility] 10-21-2022 13:45-0400 Heart rate 69 /min Chair 15 [facility] 10-21-2022 13:45-0400 Respiratory rate 16 /min Chair 15 [facility] 10-21-2022 13:45-0400 Systolic blood pressure 155 mm[Hg] Chair 15 [facility] [facility] 10-21-2022 11:10-0400 Body height 162.6 cm Denis Richey MD Work Phone: [facility] 10-21-2022 11:10-0400 Body mass index (BMI) [Ratio] 25.92 kg/m2 Denis Richey MD Work Phone: [facility] 10-21-2022 11:10-0400 Body weight 68.49 kg Denis Richey MD Work Phone: [facility] 10-21-2022 11:10-0400 Diastolic blood pressure 82 mm[Hg] Denis Richey MD Work Phone: [facility] 10-21-2022 11:10-0400 Heart rate 77 /min Denis Richey MD Work Phone: [facility] 10-21-2022 11:10-0400 Systolic blood pressure 172 mm[Hg] Denis Richey MD Work Phone: [facility] 09-08-2022 14:50-0400 Diastolic blood pressure 89 mm[Hg] Chair 17 [facility] 09-08-2022 14:50-0400 Heart rate 70 /min Chair 17 [facility] 09-08-2022 14:50-0400 Systolic blood pressure 178 mm[Hg] Chair 17 [facility] 09-08-2022 13:36-0400 Body temperature 97 [degF] Chair 17 [facility] 09-08-2022 13:36-0400 Respiratory rate 18 /min Chair 17 [facility] 09-08-2022 13:02-0400 Body height 162.6 cm Ricarda Samuels CNP Work Phone: [facility] 09-08-2022 13:02-0400 Body mass index (BMI) [Ratio] 26.09 kg/m2 Ricarda Samuels CNP Work Phone: [facility] 09-08-2022 13:02-0400 Body weight 68.95 kg Ricarda Drew APRN - [employer] DEV[employer] Work Phone: [facility] 09-08-2022 13:02-0400 Diastolic blood pressure 81 mm[Hg] Ricarda Drew APRN - [employer] DEVELOPER Work Phone: [facility] 09-08-2022 13:02-0400 Heart rate 71 /min Ricarda Drew APRN - [employer] DEVEL[employer] Work Phone: [facility] 09-08-2022 13:02-0400 Systolic blood pressure 177 mm[Hg] Ricarda Drew APRN - [employer] DEVELOPER Work Phone: [facility] 08-19-2022 15:52-0400 Diastolic blood pressure 80 mm[Hg] Chair 12 [facility] 08-19-2022 15:52-0400 Heart rate 79 /min Chair 12 [facility] 08-19-2022 15:52-0400 Respiratory rate 18 /min Chair 12 [facility] 08-19-2022 15:52-0400 Systolic blood pressure 138 mm[Hg] Chair 12 [facility] 08-19-2022 14:43-0400 Body temperature 97.11 [degF] Chair 12 [facility] 07-29-2022 16:15-0400 Diastolic blood pressure 78 mm[Hg] Chair 10 [facility] 07-29-2022 16:15-0400 Heart rate 73 /min Chair 10 [facility] 07-29-2022 16:15-0400 Respiratory rate 16 /min Chair 10 [facility] 07-29-2022 16:15-0400 Systolic blood pressure 149 mm[Hg] Chair 10 [facility] 07-29-2022 12:58-0400 Body temperature 97.11 [degF] Chair 10 [facility] 07-29-2022 12:24-0400 Body height 162.6 cm Lupe Mason APRN Abril SOLORZANO Work Phone: [facility] 07-29-2022 12:24-0400 Body mass index (BMI) [Ratio] 27.12 kg/m2 Lupe Encarnacionod LOGISTICAL ENGINEER - [employer] DEVELOPER Work Phone: [facility] 07-29-2022 12:24-0400 Body weight 71.67 kg Lupe Mason LOGISTICAL ENGINEER - [employer] DEVELOPER Work Phone: [facility] 07-29-2022 12:24-0400 Diastolic blood pressure 81 mm[Hg] Lupe Encarnacionod LOGISTICAL ENGINEER - [employer] DEVELOPER Work Phone: [facility] 07-29-2022 12:24-0400 Heart rate 74 /min Lupe Encarnacionod LOGISTICAL ENGINEER - [employer] DEVELOPER Work Phone: [facility] 07-29-2022 12:24-0400 Systolic blood pressure 155 mm[Hg] Lupe Encarnacionod LOGISTICAL ENGINEER - [employer] DEVELOPER Work Phone: [facility] 07-08-2022 11:21-0400 Body height 162.6 cm Ricarda Drew LOGISTICAL ENGINEER - [employer] DEVELOPER Work Phone: [facility] 07-08-2022 11:21-0400 Body mass index (BMI) [Ratio] 25.75 kg/m2 Ricarda Driscollher LOGISTICAL ENGINEER - [employer] DEVELOPER Work Phone: [facility] 07-08-2022 11:21-0400 Body weight 68.04 kg Ricarda Viki LOGISTICAL ENGINEER - [employer] DEVELOPER Work Phone: [facility] 07-08-2022 11:21-0400 Diastolic blood pressure 82 mm[Hg] Ricarda Driscollher LOGISTICAL ENGINEER - [employer] DEVELOPER Work Phone: [facility] 07-08-2022 11:21-0400 Heart rate 77 /min Ricarda Viki LOGISTICAL ENGINEER - [employer] DEVELOPER Work Phone: [facility] 07-08-2022 11:21-0400 Systolic blood pressure 173 mm[Hg] Ricarda Viki LOGISTICAL ENGINEER - [employer] DEVELOPER Work Phone: [facility] 07-02-2022 08:48-0400 Body temperature 98.2 [degF] Dr. Jose L Wiseman Work Phone: [facility] 07-02-2022 08:48-0400 Diastolic blood pressure 76 mm[Hg] Dr. Jose L Wiseman Work Phone: [facility] 07-02-2022 08:48-0400 Heart rate 83 /min Dr. Jose L Wiseman Work Phone: [facility] 07-02-2022 08:48-0400 Respiratory rate 18 /min Dr. Jose L Wiseman Work Phone: [facility] 07-02-2022 08:48-0400 SaO2% (BldA) [Mass fraction] 97 % Dr. Jose L Wiseman Work Phone: [facility] 07-02-2022 08:48-0400 Systolic blood pressure 142 mm[Hg] Dr. Jose L Wiseman Work Phone: [facility] 07-02-2022 06:00-0400 Body mass index (BMI) [Ratio] 25.7 kg/m2 Dr. Jose L Wiseman Work Phone: [facility] 07-02-2022 06:00-0400 Body weight 68.[address] Jose L Wiseman Work Phone: [facility] 07-01-2022 18:01-0400 Body height 162.[address] Jose L Wiseman Work Phone: [facility] 07-01-2022 17:06-0400 Body temperature 98.6 [degF] Dr. Jose L Wiseman Work Phone: [facility] 07-01-2022 17:06-0400 Diastolic blood pressure 81 mm[Hg] Dr. Jose L Wiseman Work Phone: [facility] 07-01-2022 17:06-0400 Heart rate 75 /min Dr. Jose L Wiseman Work Phone: [facility] 07-01-2022 17:06-0400 Respiratory rate 18 /min Dr. Jose L Wiseman Work Phone: [facility] 07-01-2022 17:06-0400 SaO2% (BldA) [Mass fraction] 98 % Dr. Jose L Wiseman Work Phone: [facility] 07-01-2022 17:06-0400 Systolic blood pressure 152 mm[Hg] Dr. Jose L Wiseman Work Phone: [facility] 07-01-2022 11:57-0400 Body height 162.[address] Jose L Wiseman Work Phone: [facility] 07-01-2022 11:57-0400 Body mass index (BMI) [Ratio] 26.6 kg/m2 Dr. Jose L Wiseman Work Phone: [facility] 07-01-2022 11:57-0400 Body weight 70.[address] Jose L Wiseman Work Phone: [facility] 06-17-2022 15:10-0400 Body temperature 96.21 [degF] Chair 24 [facility] 06-17-2022 15:10-0400 Diastolic blood pressure 92 mm[Hg] Chair 24 [facility] 06-17-2022 15:10-0400 Heart rate 78 /min Chair 24 [facility] 06-17-2022 15:10-0400 Respiratory rate 18 /min Chair 24 [facility] 06-17-2022 15:10-0400 SaO2% (BldA) [Mass fraction] 97 % Chair 24 [facility] 06-17-2022 15:10-0400 Systolic blood pressure 159 mm[Hg] Chair 24 [facility] 06-17-2022 11:08-0400 Body mass index (BMI) [Ratio] 25.23 kg/m2 Chair 24 [facility] 06-17-2022 11:08-0400 Body weight 66.68 kg Chair 24 [facility] 05-20-2022 11:57-0500 Diastolic blood pressure 78 mm[Hg] Chair 24 [facility] 05-20-2022 11:57-0500 Heart rate 77 /min Chair 24 [facility] 05-20-2022 11:57-0500 Respiratory rate 16 /min Chair 24 [facility] 05-20-2022 11:57-0500 Systolic blood pressure 140 mm[Hg] Chair 24 [facility] 05-20-2022 08:45-0500 Body height 165.1 cm Ricarda Drew LOGISTICAL ENGINEER - [employer] DEVELOPER Work Phone: [facility] 05-20-2022 08:45-0500 Body mass index (BMI) [Ratio] 25.29 kg/m2 Ricarda Drew LOGISTICAL ENGINEER - [employer] DEVELOPER Work Phone: [facility] 05-20-2022 08:45-0500 Body weight 68.95 kg Ricarda Drew LOGISTICAL ENGINEER - [employer] DEVELOPER Work Phone: [facility] 05-20-2022 08:45-0500 Diastolic blood pressure 77 mm[Hg] Ricarda Drew LOGISTICAL ENGINEER - [employer] DEVELOPER Work Phone: [facility] 05-20-2022 08:45-0500 Heart rate 83 /min Ricarda Drew LOGISTICAL ENGINEER - [employer] DEVELOPER Work Phone: [facility] 05-20-2022 08:45-0500 Systolic blood pressure 154 mm[Hg] Ricarda Drew LOGISTICAL ENGINEER - [employer] DEVELOPER Work Phone: [facility] 04-29-2022 13:29-0500 Body temperature 96.91 [degF] Bed 4 [facility] 04-29-2022 13:29-0500 Diastolic blood pressure 84 mm[Hg] Bed 4 [facility] 04-29-2022 13:29-0500 Heart rate 72 /min Bed 4 [facility] 04-29-2022 13:29-0500 Respiratory rate 16 /min Bed 4 [facility] 04-29-2022 13:29-0500 Systolic blood pressure 148 mm[Hg] Bed 4 [facility] 04-29-2022 10:01-0500 Body height 162.6 cm Bed 4 [facility] 04-29-2022 10:01-0500 Body mass index (BMI) [Ratio] 26 kg/m2 Bed 4 [facility] 04-29-2022 10:01-0500 Body weight 68.72 kg Bed 4 [facility] 04-29-2022 10:01-0500 SaO2% (BldA) [Mass fraction] 98 % Bed 4 [facility] 04-29-2022 09:19-0500 Body height 162.6 cm Ricarda Drew APRN - [employer] DEVELOPER Work Phone: [facility] 04-29-2022 09:19-0500 Body mass index (BMI) [Ratio] 25.75 kg/m2 Ricarda Drew LOGISTICAL ENGINEER - [employer] DEVELOPER Work Phone: [facility] 04-29-2022 09:19-0500 Body weight 68.04 kg Ricardaadriana Drew LOGISTICAL ENGINEER - [employer] DEVELOPER Work Phone: [facility] 04-29-2022 09:19-0500 Diastolic blood pressure 82 mm[Hg] Ricardaadriana Drew LOGISTICAL ENGINEER - [employer] DEVELOPER Work Phone: [facility] 04-29-2022 09:19-0500 Heart rate 83 /min Ricardaadriana Drew LOGISTICAL ENGINEER - [employer] DEVELOPER Work Phone: [facility] 04-29-2022 09:19-0500 Systolic blood pressure 177 mm[Hg] Ricardaadriana Drew APRN - [employer] DEVELOPER Work Phone: [facility] 04-04-2022 16:43-0500 Diastolic blood pressure 88 mm[Hg] Chair 20 [facility] 04-04-2022 16:43-0500 Heart rate 84 /min Chair 20 [facility] 04-04-2022 16:43-0500 Respiratory rate 16 /min Chair 20 [facility] 04-04-2022 16:43-0500 Systolic blood pressure 167 mm[Hg] Chair 20 [facility] 04-04-2022 13:47-0500 Body temperature 96.6 [degF] Chair 20 [facility] 04-04-2022 09:05-0500 Body height 162.6 cm Chair 20 [facility] 04-04-2022 09:05-0500 Body mass index (BMI) [Ratio] 25.37 kg/m2 Chair 20 [facility] 04-04-2022 09:05-0500 Body weight 67.04 kg Chair 20 [facility] 01-10-2022 14:07-0400 Body height 162.[address] Jose L Wiseman Work Phone: [facility] 01-10-2022 14:04-0400 Body mass index (BMI) [Ratio] 25.2 kg/m2 Dr. Jose L Wiseman Work Phone: [facility] 01-10-2022 14:04-0400 Body temperature 97.5 [degF] Dr. Jose L Wiseman Work Phone: [facility] 01-10-2022 14:04-0400 Body weight 66.[address] Jose L Wiseman Work Phone: [facility] 01-10-2022 14:04-0400 Diastolic blood pressure 84 mm[Hg] Dr. Jose L Wiseman Work Phone: [facility] 01-10-2022 14:04-0400 Heart rate 67 /min Dr. Jose L Wiseman Work Phone: [facility] 01-10-2022 14:04-0400 Respiratory rate 16 /min Dr. Jose L Wiseman Work Phone: [facility] 01-10-2022 14:04-0400 SaO2% (BldA) [Mass fraction] 98 % Dr. Jose L Wiseman Work Phone: [facility] 01-10-2022 14:04-0400 Systolic blood pressure 160 mm[Hg] Dr. Jose L Wiseman Work Phone: [facility] 11-09-2021 18:16-0400 Diastolic blood pressure 66 mm[Hg] Dr. Jose L Wiseman Work Phone: [facility] Work Phone: 11-09-2021 18:16-0400 Heart rate 75 /min Dr. Jose L Wiseman Work Phone: [facility] Work Phone: 11-09-2021 18:16-0400 Respiratory rate 16 /min Dr. Jose L Wiseman Work Phone: [facility] Work Phone: 11-09-2021 18:16-0400 SaO2% (BldA) [Mass fraction] 100 % Dr. Jose L Wiseman Work Phone: [facility] Work Phone: 11-09-2021 18:16-0400 Systolic blood pressure 111 mm[Hg] Dr. Jose L Wiseman Work Phone: [facility] Work Phone: 11-09-2021 16:26-0400 Heart rate 89 /min Dr. Jose L Wiseman Work Phone: [facility] Work Phone: 11-09-2021 16:26-0400 Respiratory rate 16 /min Dr. Jose L Wiseman Work Phone: [facility] Work Phone: 11-09-2021 16:26-0400 SaO2% (BldA) [Mass fraction] 98 % Dr. Jose L Wiseman Work Phone: [facility] Work Phone: 11-09-2021 16:15-0400 Body height 162.[address] Jose L Wiseman Work Phone: [facility] Work Phone: 11-09-2021 16:15-0400 Body mass index (BMI) [Ratio] 25 kg/m2 Dr. Jose L Wiseman Work Phone: [facility] Work Phone: 11-09-2021 16:15-0400 Body temperature 97.8 [degF] Dr. Jose L Wiseman Work Phone: [facility] Work Phone: 11-09-2021 16:15-0400 Body weight 66.[address] Jose L Wiseman Work Phone: [facility] Work Phone: 11-09-2021 16:15-0400 Diastolic blood pressure 81 mm[Hg] Dr. Jose L Wiseman Work Phone: [facility] Work Phone: 11-09-2021 16:15-0400 Systolic blood pressure 137 mm[Hg] Dr. Jose L Wiseman Work Phone: [facility] Work Phone: 10-18-2021 14:06-0400 Body mass index (BMI) [Ratio] 25.1 kg/m2 Dr. Jose L Wiseman Work Phone: [facility] Work Phone: 10-18-2021 14:06-0400 Body temperature 97.8 [degF] Dr. Jose L Wiseman Work Phone: [facility] Work Phone: 10-18-2021 14:06-0400 Body weight 66.[address] Jose L Wiseman Work Phone: [facility] Work Phone: 10-18-2021 14:06-0400 Diastolic blood pressure 81 mm[Hg] Dr. Jose L Wiseman Work Phone: [facility] Work Phone: 10-18-2021 14:06-0400 Heart rate 66 /min Dr. Jose L Wiseman Work Phone: [facility] Work Phone: 10-18-2021 14:06-0400 Respiratory rate 16 /min Dr. Jose L Wiseman Work Phone: [facility] Work Phone: 10-18-2021 14:06-0400 SaO2% (BldA) [Mass fraction] 96 % Dr. Jose L Wiseman Work Phone: [facility] Work Phone: 10-18-2021 14:06-0400 Systolic blood pressure 164 mm[Hg] Dr. Jose L Wiseman Work Phone: [facility] Work Phone: 04-01-2021 08:42-0500 Body height 162.[address] Jose L Wiseman Work Phone: [facility] Work Phone: 04-01-2021 08:42-0500 Body mass index (BMI) [Ratio] 25.9 kg/m2 Dr. Jose L Wiseman Work Phone: [facility] Work Phone: 04-01-2021 08:42-0500 Body temperature 97.9 [degF] Dr. Jose L Wiseman Work Phone: [facility] Work Phone: 04-01-2021 08:42-0500 Body weight 68.[address] Jose L Wiseman Work Phone: [facility] Work Phone: 04-01-2021 08:42-0500 Diastolic blood pressure 85 mm[Hg] Dr. Jose L Wiseman Work Phone: [facility] Work Phone: 04-01-2021 08:42-0500 Heart rate 76 /min Dr. Jose L Wiseman Work Phone: [facility] Work Phone: 04-01-2021 08:42-0500 Respiratory rate 16 /min Dr. Jose L Wiseman Work Phone: [facility] Work Phone: 04-01-2021 08:42-0500 SaO2% (BldA) [Mass fraction] 99 % Dr. Jose L Wiseman Work Phone: [facility] Work Phone: 04-01-2021 08:42-0500 Systolic blood pressure 125 mm[Hg] Dr. Jose L Wiseman Work Phone: [facility] Work Phone: 09-08-2020 17:11-0400 Body temperature 97 [degF] Dr. Jose L Wiseman Work Phone: [facility] 09-08-2020 17:11-0400 Diastolic blood pressure 77 mm[Hg] Dr. Jose L Wiseman Work Phone: [facility] 09-08-2020 17:11-0400 Heart rate 81 /min Dr. Jose L Wiseman Work Phone: [facility] 09-08-2020 17:11-0400 Respiratory rate 16 /min Dr. Jose L Wiseman Work Phone: [facility] 09-08-2020 17:11-0400 Systolic blood pressure 143 mm[Hg] Dr. Jose L Wiseman Work Phone: [facility] 09-08-2020 12:04-0400 SaO2% (BldA) [Mass fraction] 80 % Dr. Jose L Wiseman Work Phone: [facility] 09-08-2020 09:40-0400 Body mass index (BMI) [Ratio] 25.7 kg/m2 Dr. Jose L Wiseman Work Phone: [facility] 09-08-2020 09:40-0400 Body weight 68.[address] Jose L Wiseman Work Phone: [facility] 07-09-2020 12:45-0400 BMI (Body Mass Index) 25.06 kg/m2 Denis RED Work Phone: 07-09-2020 12:45-0400 Body weight 66.22 kg Denis RED Work Phone: 07-09-2020 12:45-0400 Height 162.6 cm Denis RED Work Phone: Encounters Encounter Date Encounter Type Care Provider Facility Start: 01-03-2025 End: 01-03-2025 Follow-up encounter Denis Richey MD Work Phone: [facility] Comment on above: Comprehensive metabo lic panel, CA 125, CBC auto differential Start: 01-03-2025 End: 01-03-2025 ambulatory Denis Richey MD Work Phone: [facility] Comment on above: Endometrial cancer ( HCC) (Primary Dx); Other specified complication of vascular prosthetic devices, implants and grafts, initial encounter Start: 11-22-2024 End: 11-22-2024 Office outpatient visit 15 minutes Rosie Samuels [facility] Work Phone: [facility] Comment on above: Encounter for immuno therapy (Primary Dx); Hair loss; Vitamin D deficiency, unspecified; Endometrial cancer (CMS/HCC) (HCC) Start: 11-22-2024 End: 11-22-2024 ambulatory Denis Richey MD Work Phone: [facility] Comment on above: Endometrial cancer ( CMS/HCC) (HCC) (Primary Dx); Other specified complication of vascular prosthetic devices, implants and grafts, initial encounter (HCC) Start: 10-11-2024 End: 10-11-2024 ambulatory Denis Richey MD Work Phone: [facility] Comment on above: Other specified comp lication of vascular prosthetic devices, implants and grafts, initial encounter (HCC) (Primary Dx); Endometrial cancer (CMS/HCC) (HCC) Start: 10-07-2024 End: 10-07-2024 Orders Only Denis Richey MD Work Phone: [facility] Comment on above: Endometrial cancer ( CMS/HCC) (HCC) (Primary Dx); Other specified complication of vascular prosthetic devices, implants and grafts, initial encounter (HCC) Start: 09-16-2024 End: 09-16-2024 Telephone encounter Denis Richey MD Work Phone: [facility] [place] Start: 09-10-2024 End: 09-10-[address] Denis Richey MD Work Phone: [facility] Work Phone: Start: 09-10-2024 End: 09-10-2024 Patient encounter procedure Rosie HOUSER [facility] Start: 09-10-2024 End: 09-10-2024 ambulatory Rosie Fuller Facility:[facility] Start: 09-04-2024 ambulatory Rosie Fuller Facility: [facility] Start: 09-03-2024 End: 09-03-2024 Telephone encounter Rosie Fuller LOGISTICAL ENGINEER - [employer] DEVELOPER Work Phone: [facility] [place] Start: 08-30-2024 End: 08-30-2024 ambulatory Denis Richey MD Work Phone: [facility] Comment on above: Other specified comp lication of vascular prosthetic devices, implants and grafts, initial encounter (HCC) (Primary Dx); Endometrial cancer (CMS/HCC) (HCC) Start: 08-28-2024 End: 08-28-2024 ambulatory YVONNE PANIAGUA [facility] Start: 08-07-2024 End: 08-07-2024 Telephone encounter Denis Richey MD Work Phone: [facility] [place] Start: 08-07-2024 End: 08-24-2024 Discharged Recurring Rosie HOUSER -[facility] Start: 08-07-2024 End: 08-24-[address] Denis Richey MD Work Phone: [facility] Work Phone: Start: 07-22-2024 End: 07-22-2024 Telephone encounter Rosie Fuller LOGISTICAL ENGINEER - [employer] DEVELOPER Work Phone: [facility] [place] Start: 07-19-2024 End: 07-19-2024 ambulatory Denis Richey MD Work Phone: [facility] [place] [facility] Comment on above: Endometrial cancer ( CMS/HCC) (HCC); Encounter for long-term (current) use of high-risk medication; Other specified complication of vascular prosthetic devices, implants and grafts, initial encounter (HCC) Start: 07-16-2024 End: 07-16-[address] Denis Richey MD Work Phone: [facility] Work Phone: Start: 07-16-2024 End: 07-16-2024 Patient encounter procedure Rosie ISSANP -Laboratory Work Phone: Start: 07-16-2024 End: 07-16-2024 ambulatory Denis Richey Facility:[facility] Start: 06-28-2024 End: 06-28-2024 Office outpatient visit 15 minutes Denis Richey MD Work Phone: [facility] Comment on above: Encounter for antine oplastic chemotherapy (Primary Dx); Endometrial cancer (CMS/HCC) (HCC) Start: 06-28-2024 End: 06-28-2024 ambulatory Denis Richey MD Work Phone: [facility] Comment on above: Endometrial cancer ( CMS/HCC) (HCC); Other specified complication of vascular prosthetic devices, implants and grafts, initial encounter ([facility]) Start: 06-27-2024 End: 07-24-2024 Discharged Recurring Rosei ISSANP -[facility] Start: 06-27-2024 Registered Recurring Rosie Thomas DIRECTOR OF PURCHASING -Laboratory, [facility] Start: 06-27-2024 End: 07-24-2024 ambulatory Denis Richey Facility:[facility] Start: 06-07-2024 End: 06-07-2024 Office outpatient visit 15 minutes Renay Lucas LOGISTICAL ENGINEER - [employer] DEVELOPER Work Phone: [facility] Comment on above: Encounter for antine oplastic chemotherapy (Primary Dx); Endometrial cancer (CMS/HCC) (HCC); Chemotherapy-induced fatigue; Chemotherapy-induced nausea Start: 06-07-2024 End: 06-07-2024 ambulatory Denis Richey MD Work Phone: [facility] Comment on above: Endometrial cancer ( CMS/HCC) (HCC); Other specified complication of vascular prosthetic devices, implants and grafts, initial encounter (HCC) Start: 06-06-2024 End: 06-24-2024 Discharged Recurring Rosie HOUSER -[facility] Start: 06-06-2024 End: 06-24-[address] Denis Richey MD Work Phone: [facility] Work Phone: Start: 05-23-2024 End: 06-20-2024 Telephone encounter Denis Richey MD Work Phone: [facility] [place] Comment on above: Test Scheduling Start: 05-22-2024 End: 05-24-2024 Discharged Recurring Rosie HOUSER -Laboratory[facility] Start: 05-22-2024 End: 05-24-2024 ambulatory Denis Richey Facility:[facility] Start: 05-21-2024 End: 05-21-2024 Telephone encounter Renay Lucas LOGISTICAL ENGINEER - [employer] DEVELOPER Work Phone: [facility] [place] Start: 05-17-2024 End: 05-17-2024 ambulatory Denis Richey MD Work Phone: [facility] Comment on above: Endometrial cancer ( CMS/HCC) (HCC); Other specified complication of vascular prosthetic devices, implants and grafts, initial encounter (HCC) Start: 05-16-2024 End: 05-16-2024 Telephone encounter Rosie Fuller LOGISTICAL ENGINEER - [employer] DEVELOPER Work Phone: [facility] [place] Start: 05-08-2024 End: 05-08-2024 Postop follow up visit related to original px Denis Richey MD Work Phone: [facility] [place] Comment on above: Endometrial cancer ( CMS/HCC) (HCC) (Primary Dx); Encounter for antineoplastic chemotherapy Start: 05-08-2024 End: 05-08-2024 ambulatory YVONNE PANIAGUA [facility] Start: 04-18-2024 End: 04-18-2024 Telephone encounter Denis Richey MD Work Phone: [facility] Gynecologic On[facility] [place] Start: 04-17-2024 Encounter for other preprocedural examination Denis Richey [facility] Start: 04-16-2024 End: 04-17-2024 Evaluation and management of inpatient Denis Richey MD Work Phone: [facility] Medical Surgical Unit [facility] H5 Comment on above: Uterine cancer (CMS/ HCC) (HCC) (Primary Dx); Malignant neoplasm of endometrium (HCC); Postoperative state Start: 04-12-2024 End: 04-12-2024 Telephone encounter Denis Richey MD Work Phone: [facility] [place] Start: 04-12-2024 End: 04-12-2024 ambulatory eDnis Richey MD Work Phone: [facility] [place] Comment on above: Uterine cancer (CMS/ HCC) (HCC) (Primary Dx) Start: 04-10-2024 End: 04-10-2024 ambulatory Denis Richey MD Work Phone: [facility]necologic [facility] [place] Start: 04-10-2024 End: 04-10-2024 Telephone encounter Denis Richey MD Work Phone: [facility] [place] Comment on above: Other ([facility] Start: 04-05-2024 End: 04-05-2024 Telephone encounter Denis Richey MD Work Phone: [facility] [place] Start: 04-02-2024 End: 04-02-[address] Denis Richey MD [facility] Start: 04-02-2024 End: 04-02-2024 ambulatory Denis Richey Facility:[facility] Start: 03-29-2024 End: 03-29-2024 Office outpatient visit 10 minutes Denis Richey MD Work Phone: [facility] Gynecologic Oncology [facility] [place] Comment on above: Endometrial cancer ( CMS/HCC) (HCC) (Primary Dx); Encounter for antineoplastic chemotherapy Start: 03-29-2024 End: 03-29-2024 ambulatory Denis Richey MD Work Phone: [facility] Comment on above: Endometrial cancer ( CMS/HCC) (HCC); Other specified complication of vascular prosthetic devices, implants and grafts, initial encounter (HCC) Endometrial cancer ( HCC); Other specified complication of vascular prosthetic devices, implants and grafts, initial encounter Start: 03-25-2024 ambulatory Rishi Gonzalez Facility:[facility] Start: 03-25-2024 Non-patient / Non-visit Dr. Theron SIMMONS [facility] Start: 03-25-2024 End: 03-25-[address] Denis Richey MD -Cardiovascular Services Work Phone: Start: 03-25-2024 End: 03-25-2024 ambulatory Denis Richey Facility:[facility] Start: 03-21-2024 End: 03-21-2024 Telephone encounter Denis Richey MD Work Phone: [facility] Central Scheduling Comment on above: Other (Unable to con tact pt ) Start: 03-01-2024 End: 03-01-2024 ambulatory Denis Richey MD Work Phone: [facility] Comment on above: Endometrial cancer ( CMS/HCC) (HCC); Other specified complication of vascular prosthetic devices, implants and grafts, initial encounter (HCC) Start: 03-01-2024 End: 03-01-2024 Telephone encounter Renay Lucas APRN - NET MVC DEVELOPER Work Phone: [facility]ologic [facility] [place] Start: 02-25-2024 End: 02-25-2024 Telephone encounter Denis Richey MD Work Phone: [facility] Central Scheduling Comment on above: Other (Scheduling) Start: 02-05-2024 End: 02-05-2024 Telephone encounter Brooklynn Del Angel RN [facility] [place] Start: 02-02-2024 End: 02-02-2024 Office outpatient visit 15 minutes Denis Richey MD Work Phone: [facility] [place] Comment on above: Endometrial cancer ( CMS/HCC) (HCC) (Primary Dx); Encounter for antineoplastic chemotherapy; Encounter for screening mammogram for malignant neoplasm of breast; Screening mammogram for breast cancer Start: 02-02-2024 End: 02-02-2024 ambulatory Denis Richey MD Work Phone: [facility] Comment on above: Endometrial cancer ( CMS/HCC) (HCC); Other specified complication of vascular prosthetic devices, implants and grafts, initial encounter ([facility]) Start: 01-26-2024 ambulatory Denis Richey Facilit y:[facility] Start: 01-26-2024 End: 01-26-2024 ambulatory Denis Richey Facility:[facility] Start: 01-18-2024 Encounter for prepro cedural cardiovascular examination Denis Richey [facility] Start: 12-29-2023 ambulatory Denis Richey Facilit y:[facility] Start: 12-29-2023 End: 12-29-2023 ambulatory Denis Richey Facility:[facility] Start: 12-15-2023 End: 12-15-2023 ambulatory Denis Richey MD Work Phone: [facility] [employer] Comment on above: Endometrial cancer ( CMS/HCC) (HCC); Other specified complication of vascular prosthetic devices, implants and grafts, initial encounter ([facility]) Start: 12-14-2023 End: 12-14-2023 Telephone encounter Silvana Hamilton RN [facility] Comment on above: Other Start: 11-24-2023 End: 11-24-2023 ambulatory Denis Richey MD Work Phone: [facility] Comment on above: Endometrial cancer ( CMS/HCC) (HCC); Other specified complication of vascular prosthetic devices, implants and grafts, initial encounter (HCC) Start: 11-20-2023 End: 11-20-2023 Orders Only Era Richmond MD Work Phone: [facility] General Surgery Start: 11-03-2023 End: 11-03-2023 ambulatory eDnis Richey MD Work Phone: [facility] Comment on above: Endometrial cancer ( CMS/HCC) (HCC); Other specified complication of vascular prosthetic devices, implants and grafts, initial encounter (HCC) Start: 11-03-2023 End: 11-03-2023 Postop follow up visit related to original px [facility] Home Supervisor Onc Schedule [facility] Gynecologic Oncology Comment on above: Endometrial cancer ( CMS/HCC) (HCC) (Primary Dx); Encounter for antineoplastic chemotherapy Start: 10-13-2023 End: 10-13-2023 ambulatory Denis Richey MD Work Phone: [facility] Comment on above: Endometrial cancer ( CMS/HCC) (HCC); Other specified complication of vascular prosthetic devices, implants and grafts, initial encounter (HCC) Start: 10-03-2023 End: 10-03-2023 ambulatory LUPE MASON Facility:[facility] Start: 09-27-2023 ambulatory Denis Kimble y:[facility] Start: 09-27-2023 End: 09-27-2023 ambulatory LUPE MARLON Facility:[facility] Start: 09-22-2023 End: 09-22-2023 ambulatory Dneis Richey MD Work Phone: [facility] Comment on above: Endometrial cancer ( CMS/HCC) (HCC); Other specified complication of vascular prosthetic devices, implants and grafts, initial encounter (HCC) Start: 09-21-2023 End: 09-21-2023 Office outpatient visit 15 minutes Lupe Marlon LOGISTICAL ENGINEER - NET MVC DEVELOPER Work Phone: [facility] Gynecologic Oncology Comment on above: Endometrial cancer ( CMS/HCC) (HCC) (Primary Dx); Immunotherapy Start: 09-18-2023 End: 09-18-2023 Orders Only Denis Richey MD Work Phone: [facility] Gynecologic Oncology Start: 09-01-2023 End: 09-01-2023 ambulatory Denis Richey MD Work Phone: [facility] Comment on above: Endometrial cancer ( CMS/HCC) (HCC); Other specified complication of vascular prosthetic devices, implants and grafts, initial encounter (HCC) Start: 08-29-2023 Telephone encounter Silvana Hamilton RN [facility] Gynecologic Oncology Comment on above: Results Start: 08-07-2023 End: 08-07-2023 Subsequent hospital visit by physician Lupe Mason LOGISTICAL ENGINEER - [employer] DEVELOPER Work Phone: [facility] Non-Invasive Cardiology Comment on above: Endometrial cancer ( CMS/HCC) (HCC); Encounter for antineoplastic chemotherapy Start: 08-01-2023 Telephone encounter Ricarda melendez LOGISTICAL ENGINEER - [employer] DEVELOPER Work Phone: [facility] Gynecologic Oncology Comment on above: Other (Requesting if test still needed ) Start: 07-21-2023 End: 07-21-2023 ambulatory Denis Richey MD Work Phone: [facility] [facility] Comment on above: Endometrial cancer ( CMS/HCC) (HCC); Other specified complication of vascular prosthetic devices, implants and grafts, initial encounter (HCC) Start: 07-11-2023 Telephone encounter Denis Richey MD Work Phone: [facility] Gynecologic Oncology Comment on above: Other (Inform Provid er ) Start: 06-30-2023 End: 06-30-2023 ambulatory Denis Richey MD Work Phone: [facility] Comment on above: Endometrial cancer ( CMS/HCC) (HCC); Other specified complication of vascular prosthetic devices, implants and grafts, initial encounter (HCC) Start: 06-30-2023 End: 06-30-2023 Office outpatient visit 15 minutes Lupe Mason LOGISTICAL ENGINEER - [employer] DEVELOPER Work Phone: [facility] Gynecologic Oncology Comment on above: Immunotherapy (Prima ry Dx); Endometrial cancer (CMS/HCC) (HCC) Start: 06-28-2023 Telephone encounter Lupe hull LOGISTICAL ENGINEER - [employer] MVC DEVELOPER Work Phone: [facility] Gynecologic Oncology Comment on above: Other (Inform Provid er ) Start: 06-09-2023 End: 06-09-2023 ambulatory Denis Richey MD Work Phone: [facility] [facility] Comment on above: Endometrial cancer ( CMS/HCC) (HCC); Other specified complication of vascular prosthetic devices, implants and grafts, initial encounter (HCC) Start: 05-19-2023 End: 05-19-2023 Office outpatient visit 15 minutes Denis Richey MD Work Phone: [facility] Gynecologic Oncology Comment on above: Endometrial cancer ( CMS/HCC) (HCC) (Primary Dx); Immunotherapy Start: 05-15-2023 Non-patient / Non-visit Dr. Alonso Work Phone: [facility] Start: 05-15-2023 End: 05-15-[address] Denis Richey Work Phone: [facility] Work Phone: Start: 05-15-2023 End: 05-15-[address] Denis Richey Work Phone: [facility]-Cardiovascul ar Services Work Phone: Start: 04-30-2023 Orders Only Era Richmond MD Work Phone: [facility] General Surgery Start: 04-28-2023 End: 04-28-2023 ambulatory Denis Richey MD Work Phone: [facility] Comment on above: Other specified comp lication of vascular prosthetic devices, implants and grafts, initial encounter (HCC); Endometrial cancer (CMS/HCC) (HCC) Start: 04-07-2023 End: 04-07-2023 ambulatory Denis Richey MD Work Phone: [facility] Comment on above: Other specified comp lication of vascular prosthetic devices, implants and grafts, initial encounter (HCC); Endometrial cancer (CMS/HCC) (HCC) Start: 03-14-2023 End: 03-14-[address] Jose L Wiseman Work Phone: [facility] Work Phone: Start: 03-14-2023 End: 03-14-[address] Jose L Wis[facility] Start: 02-24-2023 End: 02-24-2023 ambulatory Denis Richey MD Work Phone: [facility] Comment on above: Endometrial cancer ( CMS/HCC) (HCC); Other specified complication of vascular prosthetic devices, implants and grafts, initial encounter (HCC) Start: 02-24-2023 End: 02-24-2023 Office outpatient visit 10 minutes Denis Richey MD Work Phone: [facility] Gynecologic Oncology Comment on above: Endometrial cancer ( CMS/HCC) (HCC) (Primary Dx); Encounter for antineoplastic chemotherapy Start: 02-20-2023 Non-patient / Non-visit Dr. Yaquelin Wiseman Work Phone: [facility] Start: 02-20-2023 End: 02-20-[address] Jose L Wiseman Work Phone: [facility] Work Phone: Start: 02-20-2023 End: 02-20-[address] Jose L Wiseman Work Phone: [facility]-Cardiovascul ar Services Work Phone: Start: 02-06-2023 Telephone encounter Ricarda melendez LOGISTICAL ENGINEER - NET MVC DEVELOPER Work Phone: [facility] Gynecologic Oncology Comment on above: Encounter for imagin g study to restage neoplasm (Primary Dx); Endometrial cancer (CMS/HCC) (HCC); Secondary malignant neoplasm of vagina (HCC); Left hip pain; Pain of left femur Start: 02-06-2023 Tumor stage finding Ricarda melendez LOGISTICAL ENGINEER - NET MVC DEVELOPER Work Phone: [facility] Work Phone: Start: 02-03-2023 End: 02-03-2023 Subsequent hospital visit by physician Braden Xr Exam Room 1 [facility] X-Ray Comment on above: Left hip pain Start: 02-03-2023 End: 02-03-2023 ambulatory Denis Richey MD Work Phone: [facility] Comment on above: Endometrial cancer ( CMS/HCC) (HCC); Other specified complication of vascular prosthetic devices, implants and grafts, initial encounter (HCC) Start: 01-26-2023 End: 01-26-2023 Subsequent hospital visit by physician Lorena Geronimo DO Work Phone: [facility] Comment on above: Encounter for screen ing mammogram for malignant neoplasm of breast Start: 01-20-2023 End: 01-20-2023 Office outpatient new 30 minutes Lorena Geronimo DO Work Phone: [facility] Comment on above: Elevated blood press ure, situational (Primary Dx); Overweight; Encounter for screening mammogram for malignant neoplasm of breast; Establishing care with new doctor, encounter for; Influenza vaccination declined; Pneumococcal vaccination declined; HIV screening declined; Screening for hepatitis C declined Start: 01-13-2023 End: 01-13-2023 ambulatory Denis Richey MD Work Phone: [facility] Comment on above: Endometrial cancer ( CMS/HCC) (HCC); Other specified complication of vascular prosthetic devices, implants and grafts, initial encounter (HCC) Start: 01-13-2023 End: 01-13-2023 Office outpatient visit 25 minutes Ricarda Samuels CNP Work Phone: [facility] Gynecologic Oncology Comment on above: Endometrial cancer ( CMS/HCC) (HCC) (Primary Dx); Neuropathy due to chemotherapeutic drug (HCC) ; Maintenance chemotherapy; Encounter for monitoring cardiotoxic drug therapy; Immunotherapy; Secondary malignant neoplasm of vagina (HCC) Start: 12-23-2022 End: 12-23-2022 ambulatory Denis Richey MD Work Phone: [facility] Comment on above: Other specified comp lication of vascular prosthetic devices, implants and grafts, initial encounter (HCC); Endometrial cancer (CMS/HCC) (HCC) Start: 12-02-2022 End: 12-02-2022 ambulatory Denis Richey MD Work Phone: [facility] Comment on above: Other specified comp lication of vascular prosthetic devices, implants and grafts, initial encounter (HCC); Endometrial cancer (CMS/HCC) (HCC) Start: 12-02-2022 End: 12-02-2022 Office outpatient visit 10 minutes Denis Richey MD Work Phone: [facility] Gynecologic Oncology Comment on above: Endometrial cancer ( CMS/HCC) (HCC) (Primary Dx); Encounter for antineoplastic chemotherapy Start: 11-22-2022 Non-patient / Non-visit Dr. Yaquelin Wiseman Work Phone: [facility] Start: 11-22-2022 End: 11-22-[address] Jose L Wiseman Work Phone: [facility] Work Phone: Start: 11-22-2022 End: 11-22-[address] Jose L Wiseman Work Phone: [facility]-Cardiovascul ar Services Work Phone: Start: 11-11-2022 End: 11-11-2022 ambulatory Denis Richey MD Work Phone: [facility] Comment on above: Endometrial cancer ( CMS/HCC) (HCC); Other specified complication of vascular prosthetic devices, implants and grafts, initial encounter (HCC) Start: 10-24-2022 Telephone encounter Denis Richey MD Work Phone: [facility] Gynecologic Oncology Start: 10-21-2022 End: 10-21-2022 ambulatory Denis Richey MD Work Phone: [facility] Comment on above: Endometrial cancer ( CMS/HCC) (HCC); Other specified complication of vascular prosthetic devices, implants and grafts, initial encounter (HCC) Start: 10-21-2022 End: 10-21-2022 Office outpatient visit 10 minutes Denis Richey MD Work Phone: [facility]nec[facility] On[facility] Comment on above: Endometrial cancer ( CMS/HCC) (HCC) (Primary Dx); Encounter for antineoplastic chemotherapy Start: 09-09-2022 Telephone encounter Ricarda Adarsh melendez LOGISTICAL ENGINEER - NET MVC DEVELOPER Work Phone: [facility] Gynecologic On[facility] Start: 09-08-2022 End: 09-08-2022 ambulatory Denis Richey MD Work Phone: [facility] Comment on above: Other specified comp lication of vascular prosthetic devices, implants and grafts, initial encounter (HCC); Endometrial cancer (CMS/HCC) (HCC) Start: 09-08-2022 End: 09-08-2022 Office outpatient visit 15 minutes Ricarda Drew LOGISTICAL ENGINEER - NET MVC DEVELOPER Work Phone: [facility] Gynecologic Oncology Comment on above: Endometrial cancer ( CMS/HCC) (HCC) (Primary Dx); Neuropathy due to chemotherapeutic drug (HCC); Immunotherapy; Encounter for monitoring cardiotoxic drug therapy Start: 09-06-2022 End: 09-06-[address] Jose L Wiseman Work Phone: [facility] Work Phone: Start: 09-06-2022 End: 09-06-[address] Jose L Wiseman Work Phone: [facility] Oncology Start: 08-26-2022 Non-patient / Non-visit Dr. Yaquelin Wiseman Work Phone: [facility] Start: 08-26-2022 End: 08-26-[address] Jose L Wiseman Work Phone: [facility] Work Phone: Start: 08-26-2022 End: 08-26-[address] Jose L Wiseman Work Phone: [facility]-Cardiovascul ar Services Start: 08-19-2022 End: 08-19-2022 ambulatory Denis Richey MD Work Phone: [facility] Comment on above: Other specified comp lication of vascular prosthetic devices, implants and grafts, initial encounter (HCC); Endometrial cancer (CMS/HCC) (HCC) Start: 08-18-2022 End: 08-24-[address] Jose L Wiseman Work Phone: [facility] Work Phone: Start: 08-18-2022 End: 08-24-[address] Jose L Wiseman Work Phone: [facility]-Laboratory, Pavilion Start: 07-29-2022 End: 07-29-2022 Orders Only Denis Richey MD Work Phone: [facility] Gynecologic Oncology Comment on above: Endometrial cancer ( CMS/HCC) (HCC) (Primary Dx) Endometrial cancer ( CMS/HCC) (HCC) (Primary Dx); Other specified complication of vascular prosthetic devices, implants and grafts, initial encounter (HCC) Start: 07-29-2022 End: 07-29-2022 Office outpatient visit 15 minutes Lupe Mason LOGISTICAL ENGINEER - [employer] Work Phone: [facility] Gynecologic Oncology Comment on above: Endometrial cancer ( CMS/HCC) (HCC) (Primary Dx); Encounter for antineoplastic chemotherapy Start: 07-26-2022 Orders Only Denis stewart MD Work Phone: [facility] Gynecologic Oncology Comment on above: Endometrial cancer ( CMS/HCC) (HCC) (Primary Dx) Start: 07-08-2022 End: 07-08-2022 Office outpatient visit 15 minutes Ricarda Drew LOGISTICAL ENGINEER - NET MVC DEVELOPER Work Phone: [facility] Gynecologic Oncology Comment on above: Endometrial cancer ( CMS/HCC) (HCC) (Primary Dx); Encounter for antineoplastic chemotherapy; Secondary malignant neoplasm of vagina (HCC) Start: 07-07-2022 End: 07-24-[address] Jose L Wiseman Work Phone: [facility] Work Phone: Start: 07-07-2022 End: 07-24-[address] Jose L Wiseman Work Phone: [facility]-Laboratory, OP Pavilion Start: 07-02-2022 Non-patient / Non-visit Dr. Yaquelin Wiseman Work Phone: [facility] Inpatient Physicians Start: 07-01-2022 End: 07-02-2022 Evaluation and management of inpatient Dr. Jose L Wiseman Work Phone: [facility]-Medical Surgical 3 Start: 07-01-2022 End: 07-02-[address] Jose L Wiseman Work Phone: [facility] Work Phone: Start: 07-01-2022 Telephone encounter Silvana Hamilton RN [facility] Gynecologic Oncology Comment on above: OTHER Start: 06-30-2022 Non-patient / Non-visit Dr. Yaquelin Wiseman Work Phone: [facility] Start: 06-30-2022 End: 06-30-[address] Jose L Wiseman Work Phone: [facility] Work Phone: Start: 06-30-2022 End: 06-30-[address] Jose L Wiseman Work Phone: [facility]-Cardiovascul ar Services Start: 06-17-2022 Telephone encounter Ricarda Samuels CNP Work Phone: [facility] Gynecologic Oncology Start: 06-17-2022 End: 06-17-2022 ambulatory Denis Richey MD Work Phone: [facility] Comment on above: Hematuria, unspecifi ed type (Primary Dx); Endometrial cancer (CMS/HCC) (HCC); Other specified complication of vascular prosthetic devices, implants and grafts, initial encounter (HCC) Start: 06-16-2022 End: 06-24-[address] Jose L Wiseman Work Phone: [facility] Work Phone: Start: 06-16-2022 End: 06-24-[address] Jose L Wiseman Work Phone: [facility]-Laboratory, [facility] Start: 05-20-2022 End: 05-20-2022 ambulatory Denis Richey MD Work Phone: [facility] Comment on above: Endometrial cancer ( CMS/HCC) (HCC) (Primary Dx); Other specified complication of vascular prosthetic devices, implants and grafts, initial encounter (HCC) Start: 05-20-2022 End: 05-20-2022 Office outpatient visit 15 minutes Ricarda Drew APRN - NET MVC DEVELOPER Work Phone: [facility] Gynecologic Oncology Comment on above: Endometrial cancer ( CMS/HCC) (HCC) (Primary Dx); Encounter for antineoplastic chemotherapy; Secondary malignant neoplasm of vagina (HCC) Start: 05-19-2022 End: 05-24-[address] Jose L Wiseman Work Phone: [facility] Work Phone: Start: 05-19-2022 End: 05-24-[address] Jose L Wiseman Work Phone: [facility]-Laboratory, [facility] Start: 04-29-2022 End: 04-29-2022 Social Work Niyah OTERO-S Work Phone: [facility] Comment on above: Endometrial cancer ( CMS/HCC) (HCC) (Primary Dx); Other specified complication of vascular prosthetic devices, implants and grafts, initial encounter (HCC) Start: 04-29-2022 End: 04-29-2022 Office outpatient visit 15 minutes Ricarda Drew APRN - NET MVC DEVELOPER Work Phone: [facility] [place] 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 Oncology Comment on above: Endometrial cancer ( CMS/HCC) (HCC) (Primary Dx); Encounter for antineoplastic chemotherapy; Other longterm (current) drug therapy; Secondary malignant neoplasm of vagina (HCC) Start: 04-08-2022 Telephone encounter Ricarda melendez APRN - NET MVC DEVELOPER Work Phone: [facility] [place] 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 Oncology Start: 04-06-2022 Telephone encounter Denis Richey MD Work Phone: [facility] [place] 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 Oncology Comment on above: CHEMO SIDE EFFECTS Rash (Primary Dx) Start: 04-04-2022 Chart abstracting Brooklynn Del Angel RN [facility] [place] 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 Oncology Start: 04-04-2022 End: 04-04-2022 ambulatory Denis Richey MD Work Phone: [facility] Comment on above: Endometrial cancer ( CMS/HCC) (HCC) (Primary Dx); Other specified complication of vascular prosthetic devices, implants and grafts, initial encounter (HCC) Start: 04-01-2022 End: 04-01-[address] Jose L Wiseman Work Phone: [facility] Work Phone: Start: 04-01-2022 End: 04-01-[address] Jose L Wiseman Work Phone: [facility]-Medical Out Start: 03-23-2022 Non-patient / Non-visit Dr. Yaquelin Wiseman Work Phone: [facility] Start: 03-23-2022 End: 03-23-[address] Jose L Wiseman Work Phone: [facility]-Cardiovascul ar Services Start: 03-16-2022 End: 03-16-[address] Jose L Wiseman Work Phone: [facility] Oncology Start: 02-23-2022 Registered Recurring Dr. Gracy Wiseman Work Phone: [facility] Oncology Start: 01-10-2022 End: 01-10-[address] Jose L Wiseman Work Phone: [facility] Start: 01-03-[address] Gracy Wiseman Work Phone: [facility] On[facility] Start: 01-03-2022 End: 01-03-[address] Jose L Wiseman Work Phone: [facility] Work Phone: Start: 01-03-2022 End: 01-03-[address] Jose L Wiseman Work Phone: [facility]-Outpatient Breast Imaging Start: 11-12-2021 End: 11-12-[address] Jose L Wiseman Work Phone: [facility] Start: 11-09-2021 End: 11-09-2021 Emergency department patient visit Dr. Jose L Wiseman Work Phone: [facility]-Emergency Department Start: 10-18-2021 End: 10-18-[address] Jose L Wiseman Work Phone: [facility] Start: 10-11-2021 End: 10-11-2021 Patient encounter procedure [facility] Start: 10-11-2021 Registered Recurring [facility] Start: 07-16-2021 End: 07-16-[address] Jose L Wiseman Work Phone: [facility] Start: 06-29-2021 End: 06-29-[address] Jose L Wiseman Work Phone: [facility] Ultrasound Start: 06-28-[address] Gracy Wiseman Work Phone: [facility] On[facility] Start: 06-28-2021 End: 06-28-[address] Jose L Wiseman Work Phone: [facility] Breast Imaging Start: 04-01-2021 End: 04-01-[address] Jose L Wiseman Work Phone: [facility] Start: 03-22-[address] Terri Wiseman Work Phone: [facility] Start: 03-10-2021 End: 03-10-[address] Jose L Wiseman Work Phone: [facility] Start: 07-09-2020 End: 07-09-2020 Subsequent hospital visit by physician Denis Richey Work Phone: [facility] Comment on above: Arrived Procedures Date Procedure Procedure Detail Performing Clinician Start: 01-03-2025 Comprehensive metabo lic panel Denis Richey MD Work Phone: Start: 01-03-2025 Immunoassay tumor an tigen quantitative ca 125 Denis Richey MD Work Phone: Start: 11-22-2024 Comprehensive metabo lic panel Denis Richey MD Work Phone: Start: 11-22-2024 Immunoassay tumor an tigen quantitative ca 125 Denis Richey MD Work Phone: Start: 10-11-2024 Comprehensive metabo lic panel Denis Richey MD Work Phone: Start: 10-11-2024 Immunoassay tumor an tigen quantitative ca 125 Denis Richey MD Work Phone: Start: 08-30-2024 Comprehensive metabo lic panel Denis Richey MD Work Phone: Start: 08-30-2024 Immunoassay tumor an tigen quantitative ca 125 Denis Richey MD Work Phone: Start: 07-19-2024 Comprehensive metabo lic panel Rosie Fuller LOGISTICAL ENGINEER - NET MVC DEVELOPER Work Phone: Start: 07-19-2024 Immunoassay tumor an tigen quantitative ca 125 Denis Richey MD Work Phone: Start: 06-28-2024 Immunoassay tumor an tigen quantitative ca 125 Denis Richey MD Work Phone: Start: 06-07-2024 Immunoassay tumor an tigen quantitative ca 125 Denis Richey MD Work Phone: Start: 06-07-2024 Follow-up visit Follow-up RENAY D BRANCH Start: 05-15-2024 Measurement of renal function Dr. Denis Richey MD Work Phone: Comment on above: GFR Calc Start: 04-16-2024 End: 04-16-2024 Bx abdl/retroperitoneal mass prq needle Denis Richey MD Work Phone: Start: 04-16-2024 Antibody screen DENIS RICHEY Comment on above: Order Comment: HOLD. Specimen is valid for 3 days - nurse to verify valid specimen Performed By: #### L [id number] ####Transition Of Care Specialist: YVONNE BRAY ([phone])[facility] ([facility])[address] [place] [address] Start: 04-16-2024 Blood count complete automated Denis Richey MD Work Phone: Start: 04-16-2024 Blood typing serologic abo Denis Richey MD Work Phone: Start: 04-02-2024 PET study for locali zation of tumor Dr. Denis Richey MD Work Phone: Start: 03-29-2024 Comprehensive metabo lic panel Denis Richey MD Work Phone: Start: 03-29-2024 Immunoassay tumor an tigen quantitative ca 125 Denis Richey MD Work Phone: Start: 03-01-2024 Comprehensive metabo lic panel Denis Richey MD Work Phone: Start: 03-01-2024 Immunoassay tumor an tigen quantitative ca 125 Denis Richey MD Work Phone: Start: 02-02-2024 Comprehensive metabo lic panel Denis Richey MD Work Phone: Start: 02-02-2024 Immunoassay tumor an tigen quantitative ca 125 Denis Richey MD Work Phone: Start: 12-15-2023 Comprehensive metabo lic panel Denis Richey MD Work Phone: Start: 12-15-2023 Immunoassay tumor an tigen quantitative ca 125 Denis Richey MD Work Phone: Start: 11-24-2023 Comprehensive metabo lic panel Era Richmond MD Work Phone: Start: 11-24-2023 Immunoassay tumor an tigen quantitative ca 125 Era Richmond MD Work Phone: Start: 11-03-2023 Comprehensive metabo lic panel Denis Richey MD Work Phone: Start: 11-03-2023 Immunoassay tumor an tigen quantitative ca 125 Denis Richey MD Work Phone: Start: 10-13-2023 Comprehensive metabo lic panel Denis Richey MD Work Phone: Start: 10-13-2023 Immunoassay tumor an tigen quantitative ca 125 Denis Richey MD Work Phone: Start: 09-22-2023 Comprehensive metabo lic panel Denis Richey MD Work Phone: Start: 09-22-2023 Immunoassay tumor an tigen quantitative ca 125 Denis Richey MD Work Phone: Start: 09-01-2023 Comprehensive metabo lic panel Denis Richey MD Work Phone: Start: 09-01-2023 Immunoassay tumor an tigen quantitative ca 125 Denis Richey MD Work Phone: Start: 08-07-2023 Echo tthrc r-t 2d w/ wom-mode compl spec&colr d Lupe Encarnacionod LOGISTICAL ENGINEER - NET MVC DEVELOPER Work Phone: Start: 06-30-2023 Comprehensive metabo lic panel Denis Richey MD Work Phone: Start: 06-30-2023 Immunoassay tumor an tigen quantitative ca 125 Denis Richey MD Work Phone: Start: 06-09-2023 Comprehensive metabo lic panel Denis Richey MD Work Phone: Start: 06-09-2023 Immunoassay tumor an tigen quantitative ca 125 Denis Richey MD Work Phone: Start: 04-28-2023 Comprehensive metabo lic panel Ricarda Viki LOGISTICAL ENGINEER - NET MVC DEVELOPER Work Phone: Start: 04-28-2023 Immunoassay tumor an tigen quantitative ca 125 Ricarda Viki LOGISTICAL ENGINEER - NET MVC DEVELOPER Work Phone: Start: 04-07-2023 Comprehensive metabo lic panel Ricarda Viki LOGISTICAL ENGINEER - NET MVC DEVELOPER Work Phone: Start: 04-07-2023 Immunoassay tumor an tigen quantitative ca 125 Ricarda Viki LOGISTICAL ENGINEER - NET MVC DEVELOPER Work Phone: Start: 03-14-2023 PET study for locali zation of tumor Dr. Jose L Wiseman Work Phone: Start: 02-24-2023 Comprehensive metabo lic panel Denis Richey MD Work Phone: Start: 02-24-2023 Immunoassay tumor an tigen quantitative ca 125 Denis Richey MD Work Phone: Start: 02-03-2023 End: 02-03-2023 Radiologic examination femur minimum 2 views Ricarda Viki LOGISTICAL ENGINEER - NET MVC DEVELOPER Work Phone: Start: 02-03-2023 Comprehensive metabo lic panel Denis Richey MD Work Phone: Start: 02-03-2023 Immunoassay tumor an tigen quantitative ca 125 Denis Richey MD Work Phone: Start: 01-26-2023 Mammography Ach 1 Start: 01-20-2023 Lipid panel Mary Carrion i, MD Work Phone: Start: 01-20-2023 Adult depression scr eening assessment Mary Herrera MD Work Phone: Start: 01-20-2023 Lipid 1996 panel - S johana or Plasma Mary Herrera MD Work Phone: Start: 01-13-2023 Comprehensive metabo lic panel Denis Richey MD Work Phone: Start: 01-13-2023 Immunoassay tumor an tigen quantitative ca 125 Denis Richey MD Work Phone: Start: 12-02-2022 Comprehensive metabo lic panel Denis Richey MD Work Phone: Start: 11-11-2022 Comprehensive metabo lic panel Denis Richey MD Work Phone: Start: 10-21-2022 Immunoassay tumor an tigen quantitative ca 125 Denis Richey MD Work Phone: Start: 09-08-2022 Comprehensive metabo lic panel Denis Richey MD Work Phone: Start: 09-08-2022 Immunoassay tumor an tigen quantitative ca 125 Denis Richey MD Work Phone: Start: 09-06-2022 PET study for locali zation of tumor Dr. Jose L Wiseman Work Phone: Start: 07-01-2022 CT angiography of ch est with contrast Dr. Jose L Wiseman Work Phone: Start: 07-01-2022 Plain chest X-ray Dr. Mary Wiseman Work Phone: Start: 06-17-2022 Urnls dip stick/tabl et rgnt auto w/o microscopy Ricarda Viki LOGISTICAL ENGINEER - NET MVC DEVELOPER Work Phone: Start: 04-28-2022 Creatinine blood Histor ical Patricia [place]S Work Phone: Start: 03-16-2022 PET study for locali zation of tumor Dr. Jose L Wiseman Work Phone: Start: 01-03-[address] Mak Wiseman Work Phone: Start: 01-03-[address] Jose L Wiseman Work Phone: Start: 10-11-2021 CT of chest and abdomen Start: 07-16-2021 MRI of bilateral regina asts with contrast Dr. Jose L Wiseman Work Phone: Start: 06-29-[address] Mak Wiseman Work Phone: Start: 06-29-[address] Jose L Wiseman Work Phone: Start: 06-28-2021 End: 06-28-[address] Jose L alfredo Work Phone: Start: 03-22-2021 CT Chest, Abd, Pel w/Contrast Dr. Jose L Wiseman Work Phone: Start: 01-22-2021 Colonoscopy Ricarda Ei nora LOGISTICAL ENGINEER - NET MVC DEVELOPER Work Phone: Bacteria identified in Blood by Culture Dr. Jose L Wiseman Work Phone: Respiratory Panel (PCR) Dr. Jose L Wiseman Work Phone: SARS-CoV-2 & FLU Ant igen (Rapid) Dr. Jose L Wiseman Work Phone: Streptococcus pyogen es antigen assay Dr. Jose L Wiseman Work Phone: Urine culture Dr. Jose L Wiseman Work Phone: Plan of Treatment Date Care Activity Detail Author Start: 01-22-2031 Screening for malignant neoplasm of colon [facility] Start: 01-21-2028 Lipid panel Lipid Panel [facility] Start: 03-28-2025 End: 03-28-2025 ambulatory 03/28/2025 2:00 PM EST [facility] [address] [place] [address] Denis Richey MD [address] [place] [address] [facility] Start: 02-14-2025 End: 02-14-2025 ambulatory 02/14/2025 2:00 PM EST Infusion [facility] [address] [place] [address] Denis Richey MD [address] [place], [place] [id number] [facility] Start: 02-14-2025 End: 02-14-2025 Patient encounter procedure 02/14/2025 1:30 PM EST Office Visit [facility] Gynecologic Oncology - [place] [address] [place] [phone] Rosie Fuller APRN [facility] [address] [place], [place] [id number] [facility]ologic [facility] - [place] Start: 01-03-2025 End: 01-03-2025 ambulatory 01/03/2025 2:00 PM EDT Infusion [facility] [address] [place] [address] Denis Richey MD [address] [place] [address] [facility] Start: 11-25-2024 COVID-19 Vaccine ( season) COVID-19 Vaccine ( season) [facility] Start: 11-25-2024 Influenza vaccination [facility] Start: 11-22-2024 End: 11-22-2024 ambulatory 11/22/2024 12:00 PM EDT Infusion [facility] [address] [place] [phone] Denis Richey MD [address] [place], [place] [id number] [facility] Start: 11-22-2024 End: 11-22-2024 Patient encounter procedure 11/22/2024 11:30 AM EDT Office Visit [facility] Gynecologic Oncology - [place] [address] [place] [address] Rosie Fuller APRN - NET MVC DEVELOPER [address] [place] [address] [facility] [place] Start: 10-11-2024 End: 10-11-2024 ambulatory 10/11/2024 2:00 PM EDT Infusion [facility] [address] [place] [phone] Denis Richey MD [address] [place] [address] [facility] Start: 10-11-2024 End: 10-11-2025 CA 125 CA 125 Lab Routine Endometrial cancer (CMS/HCC) (HCC) Other specified complication of vascular prosthetic devices, implants and grafts, initial encounter (HCC) Expected: 10/11/2024, Expires: 10/11/2025 [facility] Comment on above: Expected: 10/11/2024, Expires: Start: 10-11-2024 End: 10-11-2025 CBC W Auto Differential panel - Blood CBC auto differential Lab Routine Endometrial cancer (CMS/HCC) (HCC) Other specified complication of vascular prosthetic devices, implants and grafts, initial encounter (HCC) Expected: 10/11/2024, Expires: 10/11/2025 [facility] Comment on above: Expected: 10/11/2024, Expires: Start: 10-11-2024 End: 10-11-2025 Comprehensive metabolic 1998 panel - Serum or Plasma Comprehensive metabolic panel Lab Routine Endometrial cancer (CMS/HCC) (HCC) Other specified complication of vascular prosthetic devices, implants and grafts, initial encounter (HCC) Expected: 10/11/2024, Expires: 10/11/2025 [facility] Work Phone: Comment on above: Expected: 10/11/2024, Expires: Start: 10-11-2024 End: 10-11-2025 Thyrotropin [Units/volume] in Serum or Plasma TSH Lab Routine Endometrial cancer (CMS/HCC) (HCC) Other specified complication of vascular prosthetic devices, implants and grafts, initial encounter (HCC) Expected: 10/11/2024, Expires: 10/11/2025 [facility] Comment on above: Expected: 10/11/2024, Expires: Start: 09-10-2024 PET study for localization of tumor PET/CT Tumor Base -Thigh Subs [facility] Start: 09-10-2024 PT Unspecified body region [facility] Start: 08-30-2024 End: 08-30-2024 ambulatory 08/30/2024 11:00 AM EDT Infusion [facility] [address] [place] [phone] Denis Richey MD [address] [place], [place] [id number] [facility] Start: 08-30-2024 End: 08-30-2024 Patient encounter procedure 08/30/2024 10:00 AM EDT Office Visit [facility] Oncology - [place] [address] [place] [phone] Renay Lucas, LOGISTICAL ENGINEER - NET MVC DEVELOPER [address] [place] [address] [facility] Gynecologic [facility] - [place] Start: 08-09-2024 End: 08-09-2024 ambulatory 08/09/2024 11:00 AM EDT Infusion [facility] [address] [place] [phone] Denis Richey MD [address] [place] [address] [facility] Start: 08-09-2024 End: 08-09-2024 Patient encounter procedure 08/09/2024 10:30 AM EDT Office Visit [facility] On[facility] - [place] [address] [place] [phone] Renay Lucas, LOGISTICAL ENGINEER - NET MVC DEVELOPER [address] [place] [address] [facility]necologic [facility] - [place] Start: 07-22-2024 End: 07-22-2025 Thyrotropin [Units/volume] in Serum or Plasma TSH Lab Routine Abnormal thyroid function test Expected: 07/22/2024 (Approximate), Expires: 07/22/2025 [facility] Work Phone: Comment on above: Expected: 07/22/2024 (Approximate), Expi res: 07/22/2025 Start: 07-22-2024 End: 07-22-2025 Thyroxine (T4) free [Mass/volume] in Serum or Plasma T4, free Lab Routine Abnormal thyroid function test Expected: 07/22/2024 (Approximate), Expires: 07/22/2025 [facility] Comment on above: Expected: 07/22/2024 (Approximate), Expi res: 07/22/2025 Start: 07-19-2024 End: 07-19-2024 ambulatory [facility] Start: 07-19-2024 End: 07-19-2024 Patient encounter procedure 07/19/2024 10:30 AM EDT Office Visit [facility] Gynecologic Oncology - [place] [address] [place] [phone] Renay Lucas, LOGISTICAL ENGINEER - NET MVC DEVELOPER [address] [facility] [address] [place] [address] [facility] [place] Start: 06-28-2024 End: 06-28-2024 ambulatory 06/28/2024 11:00 AM EDT Infusion [facility] [address] [place] [address] Denis Richey MD [address] [place] [address] [facility] Start: 06-28-2024 End: 06-28-2024 Patient encounter procedure [facility] On[facility] Comment on above: Encounter for antineoplastic chemotherap y (Primary Dx); Endometrial cancer (CMS/HCC) (HCC) Start: 06-07-2024 End: 06-07-2024 ambulatory 06/07/2024 12:00 PM EDT Infusion [facility] [address] [place] [address] Denis Richey MD [address] [place] [address] [facility] Start: 06-07-2024 End: 06-07-2024 Patient encounter procedure 06/07/2024 11:30 AM EDT Office Visit [facility] Oncology [facility] [address] [place] [phone] Renay Lucas, LOGISTICAL ENGINEER - NET MVC DEVELOPER [address] [facility] [address] [place] [address] [facility] On[facility] - [place] Start: 05-31-2024 End: 05-31-2024 ambulatory 05/31/2024 2:00 PM EST Infusion [facility] [address] [place] [address] Denis Richey MD [address] [place] [address] [facility] Start: 05-21-2024 End: 05-21-2025 Thyrotropin [Units/volume] in Serum or Plasma TSH Lab Routine Elevated TSH Abnormal results of thyroid function studies Expected: 05/21/2024 (Approximate), Expires: 05/21/2025 [facility] Comment on above: Expected: 05/21/2024 (Approximate), Expi res: 05/21/2025 Start: 05-21-2024 End: 05-21-2025 Thyroxine (T4) free [Mass/volume] in Serum or Plasma T4, free Lab Routine Elevated TSH Abnormal results of thyroid function studies Expected: 05/21/2024 (Approximate), Expires: 05/21/2025 [facility] Work Phone: Comment on above: Expected: 05/21/2024 (Approximate), Expi res: 05/21/2025 Start: 05-17-2024 End: 05-17-2024 ambulatory [facility] Start: 05-10-2024 End: 05-10-2024 ambulatory 05/10/2024 2:00 PM EST Infusion [facility] [address] [facility] [place] [phone] Denis Richey MD [address] [place], [place] [phone] [facility] Start: 05-10-2024 End: 05-10-2024 Patient encounter procedure 05/10/2024 1:30 PM EST Office Visit [facility] Gynecologic Oncology - [place] [address] [facility] [address] [place] [phone] Denis Richey MD [address] [place] [address] [facility]necologic [facility] [place] Start: 04-19-2024 End: 04-19-2024 ambulatory 04/19/2024 2:00 PM EST Infusion [facility] [address] [place] [phone] Denis Richey MD [address] [place] [address] [facility] Start: 04-16-2024 End: 04-16-2024 Admission to same day surgery center 04/16/2024 2:00 PM EST - 04/16/2024 3:00 PM EST Surgery [facility] MAIN OR [address] [place] [phone] Denis Richey MD [address] [facility] [facility] [place] [address] [place] [address] RETROPERITONEUM LYMPH NODE BIOPSY [75859 (CPT )] [facility] Comment on above: RETROPERITONEUM LYMPH NODE BIOPSY [27374 (CPT )] Start: 04-16-2024 End: 04-16-2024 Anesthesia consultation 04/16/2024 2:00 PM EST Anesthesia Event [facility] OR [address] [facility] [place] [phone] Prosper Castorena MD [address] [place] [phone] [facility] Start: 04-16-2024 End: 04-16-2024 Bx abdl/retroperitoneal mass prq needle NEEDLE BIOPSY, MASS, ABDOMEN OR RETROPERITONEUM, PERCUTANEOUS Malignant neoplasm of endometrium (HCC) 04/16/2024 2:00 PM EST [facility] Operating Room Start: 04-16-2024 Subsequent hospital visit by physician 04/16/2024 2:00 PM EST Hospital Encounter [facility] OR [address] [place] [address] Denis Richey MD [address] [place] [id number] [facility] MAIN OR Start: 04-15-2024 End: 04-15-2024 Admission to same day surgery center 04/15/2024 11:00 AM EST - 04/15/2024 12:30 PM EST Surgery [facility] [address] [place] [phone] Denis Richey MD [address] [facility] [address] [place] [phone] ROBOTIC PARA-AORTIC LYMPH NODE DISSECTION, LEFT [42341 (CPT )] [facility] MAIN OR Comment on above: ROBOTIC PARA-AORTIC LYMPH NODE DISSECTIO N, LEFT [56422 (CPT )] Start: 04-15-2024 End: 04-15-2024 Laps bi tot pel lmphadec & viral-aortic lymph bx 1 ROBOTIC (XI) LYMPHADENECTOMY, PARA-AORTIC AND PELVIC, LAPAROSCOPIC Malignant neoplasm of endometrium (HCC) 04/15/2024 11:00 AM EST [facility] Operating Room Start: 04-15-2024 Subsequent hospital visit by physician 04/15/2024 11:00 AM EST Hospital Encounter [facility] [address] [place] [address] Denis Richey MD [address] [place] [address] [facility] MAIN OR Start: 04-12-2024 End: 04-12-2024 Admission to establishment 04/12/2024 9:00 AM EST Pre-Admission Testing [facility]mit [facility] [address] [place] [address] [facility] Pre-Admit Testing Start: 04-01-2024 End: 02-01-2025 PET+CT Bone from skull base to mid-thigh W [id number] IV PET/CT skull base to mid thigh Imaging Routine Endometrial cancer (CMS/HCC) (HCC) Expected: 04/01/2024, Expires: 02/01/2025 [facility] Work Phone: Comment on above: Expected: 04/01/2024, Expires: Start: 03-29-2024 End: 03-29-2024 ambulatory 03/29/2024 3:00 PM EST Infusion [facility] [address] [place] [address] Denis Richey MD [address] [place] [address] [facility] Start: 03-29-2024 End: 03-29-2024 Patient encounter procedure 03/29/2024 2:30 PM EST Office Visit [facility] Gynecologic Oncology [place] [address] [place] [phone] Denis Richey MD [address] [facility] [place] [address] [place] [address] [facility] Gynecologic Oncology - [place] Start: 03-22-2024 End: 03-22-2024 ambulatory 03/22/2024 11:30 AM EST Infusion [address] [phone] Denis Richey MD [address] [place] [address] [facility] Start: 03-08-2024 End: 03-08-2024 ambulatory 03/08/2024 2:00 PM EST Infusion [facility] [address] [place] [address] Denis Richey MD [address] [place] [address] [facility] Start: 03-08-2024 End: 03-08-2024 Patient encounter procedure 03/08/2024 1:30 PM EST Office Visit [facility] Gynecologic Oncology [facility] [address] [facility] [address] [place] [phone] Denis Richey MD [address] [facility] [place] [address] [place] [address] [facility] Oncology - [place] Start: 03-01-2024 End: 03-01-2024 ambulatory 03/01/2024 3:00 PM EST Infusion [facility] [address] [place] [address] Denis Richey MD [address] [facility] [place] [address] [place] [address] [facility] Start: 02-16-2024 End: 02-16-2024 ambulatory 02/16/2024 1:00 PM EST Infusion [facility] [address] [place] [address] Denis Richey MD [address] [place] [address] [facility] Start: 02-02-2024 End: 02-02-2024 ambulatory 02/02/2024 2:00 PM EST Infusion [facility] [address] [place] [phone] Denis Richey MD [address] [place], [place] [id number] [facility] Start: 02-02-2024 End: 02-02-2024 Patient encounter procedure 02/02/2024 1:45 PM EST Office Visit [facility] [place] [address] [place] [address] Denis Richey MD [address] [place], [place] [id number] Endometrial cancer (CMS/HCC) (HCC) (Primary Dx); Encounter for antineoplastic chemotherapy [facility] Comment on above: Endometrial cancer (CMS/HCC) (HCC) (Prim karine Dx); Encounter for antineoplastic chemotherapy Start: 01-27-2024 Screening for malignant neoplasm of breast Mammogram [facility] Start: 01-26-2024 End: 01-26-2024 ambulatory 01/26/2024 2:00 PM EDT Infusion [facility] [address] [facility] [place] [place] [phone] Denis Richey MD [address] [facility] [address] [place], [place] [id number] [facility] Start: 01-26-2024 End: 01-26-2024 Patient encounter procedure 01/26/2024 1:45 PM EDT Office Visit [facility] [place] [address] [place] [phone] Denis Richey MD [address] [facility] [place] [address] [place], [place] [id number] [facility] [place] Start: 01-21-2024 Depression Screening Depression Screening [facility] Start: 01-21-2024 Lipid panel Lipid Panel [facility] Start: 01-05-2024 End: 01-05-2024 ambulatory [facility] Start: 12-15-2023 End: 12-15-2023 ambulatory 12/15/2023 1:00 PM EDT Infusion [facility] [address] [place] [address] Denis Richey MD [address] [facility] [address] [place] [address] [facility] Start: 12-14-2023 End: 12-14-2023 Telemedicine consultation with patient 12/14/2023 9:00 AM EDT Telemedicine [facility] [address] [place] [address] Lupe Mason APRN - NET MVC DEVELOPER [address] [place] [address] [facility] Start: 11-26-2023 COVID-19 Vaccine ( season) COVID-19 Vaccine ( season) [facility] Start: 11-26-2023 COVID-19 Vaccine ( season) COVID-19 Vaccine ( season) [facility] Start: 11-26-2023 Influenza vaccination [facility] Start: 11-24-2023 End: 11-24-2023 ambulatory 11/24/2023 1:00 PM EDT Infusion [facility] [address] [place] [phone] Denis Richey MD [address] [facility] [address] [place] [address] [facility] Start: 11-03-2023 End: 11-03-2023 ambulatory 11/03/2023 2:00 PM EDT Infusion [facility] [address] [place] [phone] Denis Richey MD [address] [facility] [address] [place], [place] [id number] [facility] Start: 11-03-2023 End: 11-03-2023 Patient encounter procedure 11/03/2023 1:30 PM EDT Office Visit [facility] [address] [place] [address] Denis Richey MD [address] [facility] [address] [place], [place] [id number] [facility] Start: 10-13-2023 End: 10-13-2023 ambulatory 10/13/2023 1:00 PM EDT Infusion [facility] [address] [place] [facility] [place] [address] Denis Richey MD [address] [place], [place] [phone] [facility] Start: 09-25-2023 End: 08-28-2025 US Heart Transthoracic Transthoracic echocardiogram (TTE) complete with contrast, bubble, strain, and 3D PRN CV Echocardiography Routine Endometrial cancer (CMS/HCC) (HCC) Encounter for antineoplastic chemotherapy Expected: 09/25/2023 (Approximate), Expires: 08/28/2025 [facility] [employer] [facility] Work Phone: Comment on above: Expected: 09/25/2023 (Approximate), Expi res: 08/28/2025 Start: 09-22-2023 End: 09-22-2023 Patient encounter procedure 09/22/2023 2:30 PM EDT Office Visit [facility] [address] [place] [address] Ricarda Drew, LOGISTICAL ENGINEER - NET MVC DEVELOPER [address] [place] [address] [facility] Start: 09-22-2023 End: 09-22-2023 ambulatory [facility] Start: 09-21-2023 End: 09-20-2024 PET+CT Bone from skull base to mid-thigh W 18F-NaF IV PET/CT skull base to mid thigh Imaging Routine Endometrial cancer (CMS/HCC) (HCC) Expected: 09/21/2023, Expires: 09/20/2024 [facility] Work Phone: Comment on above: Expected: 09/21/2023, Expires: Start: 09-21-2023 End: 09-21-2023 Telemedicine consultation with patient 09/21/2023 8:00 AM EDT Telemedicine [facility] [address] [place] [phone] Lupe Mason LOGISTICAL ENGINEER - NET MVC DEVELOPER [address] [place], [place] [phone] [facility] Start: 09-01-2023 End: 09-01-2023 ambulatory 09/01/2023 1:00 PM EDT Infusion [facility] [address] [place] [phone] Denis Richey MD [address] [place] [address] [facility] Start: 08-11-2023 End: 08-11-2023 ambulatory 08/11/2023 2:00 PM EDT Infusion [facility] [address] [place] [phone] Denis Richey MD [address] [place] [address] [facility] Start: 08-11-2023 End: 08-11-2023 Patient encounter procedure [facility] Start: 08-07-2023 End: 08-07-2023 Patient encounter procedure 08/07/2023 1:00 PM EDT Appointment [facility] [address] [place] [phone] Lupe Mason, LOGISTICAL ENGINEER - NET MVC DEVELOPER [address] [place] [address] [facility] Start: 07-21-2023 End: 07-21-2023 ambulatory 07/21/2023 2:00 PM EDT Infusion [facility] [address] [place] [phone] Denis Richey MD [address] [place] [address] [facility] Start: 06-30-2023 End: 06-30-2023 ambulatory 06/30/2023 2:00 PM EDT Infusion [facility] [address] [place] [phone] Denis Richey MD [address] [place] [address] [facility] Start: 06-30-2023 End: 06-30-2023 Patient encounter procedure 06/30/2023 1:30 PM EDT Office Visit [facility] [address] [place] [phone] Lupe Mason APRN - CNP [address] [place] [address] [facility] Start: 06-09-2023 End: 06-09-2023 ambulatory 06/09/2023 2:00 PM EDT Infusion [facility] [address] [place] [phone] Denis Richey MD [address] [place] [address] [facility] Start: 05-19-2023 End: 05-19-2023 ambulatory 05/19/2023 12:00 PM EST Infusion [facility] [address] [place] [phone] Denis Richey MD [address] [facility] [address] [place] [address] [facility] Start: 05-19-2023 End: 05-19-2023 Patient encounter procedure 05/19/2023 11:30 AM EST Office Visit [facility] [address] [place] [phone] Denis Richey MD [address] [place], [place] [id number] [facility] Start: 04-28-2023 End: 04-28-2023 ambulatory [facility] Start: 04-07-2023 End: 04-07-2023 ambulatory 04/07/2023 2:00 PM EST Infusion [facility] [address] [place] [phone] Denis Richey MD [address] [place], [place] [phone] [facility] Start: 04-07-2023 End: 04-07-2023 Patient encounter procedure 04/07/2023 1:30 PM EST Office Visit [facility] [address] [place] [phone] Ricarda Drew, JULIA - NET MVC DEVELOPER [address] [place], [place] [phone] [facility] Start: 03-17-2023 End: 03-17-2023 ambulatory [facility] Start: 03-08-2023 End: 02-07-2024 PET+CT Bone from skull base to mid-thigh W 18F-NaF IV PET/CT skull base to mid thigh Imaging Routine Encounter for imaging study to restage neoplasm Endometrial cancer (CMS/HCC) (HCC) Secondary malignant neoplasm of vagina (HCC) Left hip pain Pain of left femur Expected: 03/08/2023, Expires: 02/07/2024 [facility] [employer] [facility] Work Phone: Comment on above: Expected: 03/08/2023, Expires: Start: 02-24-2023 End: 02-24-2023 ambulatory 02/24/2023 2:00 PM EST Infusion [facility] [address] [place] [phone] Denis Richey MD [address] [place] [id number] [facility] Start: 02-24-2023 End: 02-24-2023 Patient encounter procedure 02/24/2023 1:30 PM EST Office Visit [facility] [address] [place] [address] Denis Richey MD [address] [place], [address] [place], [place] [phone] [facility] Start: 02-21-2023 End: 02-21-2023 Patient encounter procedure 02/21/2023 1:15 PM EST Office Visit [address] [phone] Mary Herrera MD [address] [place], [place] [phone] [facility] Start: 02-03-2023 End: 02-03-2023 ambulatory 02/03/2023 3:00 PM EST Infusion [facility] [address] [place] [phone] Denis Richey MD [address] [place] [place], [place] [phone] [facility] Start: 01-20-2023 End: 01-21-2024 Lipid 1996 panel - Serum or Plasma Lipid panel Lab Routine Overweight Expected: 01/20/2023 (Approximate), Expires: 01/21/2024 [facility] Comment on above: Expected: 01/20/2023 (Approximate), Expi res: 01/21/2024 Start: 01-20-2023 End: 01-21-2024 MG Breast - bilateral Screening Bilateral screening mammogram Imaging Routine Encounter for screening mammogram for malignant neoplasm of breast Expected: 01/20/2023, Expires: 01/21/2024 [facility] Work Phone: Comment on above: Expected: 01/20/2023, Expires: Start: 01-20-2023 End: 01-20-2023 Patient encounter procedure 01/20/2023 9:30 AM EDT Office Visit [facility] [address] [place] [address] Mary Herrera MD [address] [place] [address] [facility] Start: 01-13-2023 End: 01-13-2023 ambulatory 01/13/2023 12:00 PM EDT Infusion [facility] [address] [place] [phone] Denis Richey MD [address] [facility] [place], [place] [phone] [facility] Start: 01-13-2023 End: 01-13-2023 Patient encounter procedure 01/13/2023 11:30 AM EDT Office Visit [facility] [address] [facility] [address] [place] [phone] Ricarda Drew, JULIA - RASHAD [address] [facility] [address] [place] [address] [facility] Start: 12-23-2022 End: 12-23-2022 ambulatory 12/23/2022 1:00 PM EDT Infusion [facility] [address] [place] [address] Denis Richey MD [address] [facility] [place], [place] [phone] [facility] Start: 12-03-2022 End: 12-04-2023 cancer antigen 125 to AR #[id number] - Miscellaneous Test [facility] Work Phone: Comment on above: Expected: 12/03/2022 (Approximate), Expi res: 12/04/2023 Start: 12-02-2022 End: 12-02-2022 ambulatory 12/02/2022 1:00 PM EDT Infusion [facility] [address] [facility] [place] [phone] Denis Richey MD [address] [facility] [place], [place] [phone] [facility] Start: 12-02-2022 End: 12-02-2022 Patient encounter procedure 12/02/2022 12:30 PM EDT Office Visit [facility] [address] [facility] [address] [place] [address] Denis Richey MD [address] [facility] [place], [place] [id number] [facility] Start: 11-28-2022 End: 10-21-2024 US Heart Transthoracic Transthoracic echocardiogram (TTE) complete with contrast, bubble, strain, and 3D PRN CV Echocardiography Routine Endometrial cancer (CMS/HCC) (HCC) Encounter for antineoplastic chemotherapy Expected: 11/28/2022 (Approximate), Expires: 10/21/2024 [facility] Work Phone: Comment on above: Expected: 11/28/2022 (Approximate), Expi res: 10/21/2024 Start: 11-25-2022 COVID-19 Vaccine ( season) COVID-19 Vaccine ( season) [facility] Start: 11-25-2022 Influenza vaccination [facility] Start: 11-11-2022 End: 11-11-2022 ambulatory 11/11/2022 12:00 PM EDT Infusion [facility] [address] [facility] [place] [address] Denis Richey MD [address] [facility] [place] [place] [address] [facility] Start: 10-21-2022 End: 10-21-2022 ambulatory [facility] Start: 10-21-2022 End: 10-21-2022 Patient encounter procedure [facility] Start: 09-30-2022 End: 09-30-2022 ambulatory [facility] Start: 09-08-2022 End: 09-08-2022 ambulatory 09/08/2022 Infusion Infusion Therapy Denis Richey MD [address] [place] [place] [address] [facility] Start: 09-08-2022 End: 09-08-2022 Patient encounter procedure 09/08/2022 Office Visit Gynecologic Oncology Ricarda Drew, LOGISTICAL ENGINEER - NET MVC DEVELOPER [address] [facility] [address] [place] [address] [facility] Start: 08-19-2022 End: 08-19-2022 ambulatory 08/19/2022 Infusion Infusion Therapy Denis Richey MD [address] [facility] [facility] [place], [address] [place] [address] [facility] Start: 08-19-2022 End: 08-19-2022 Patient encounter procedure [facility] Start: 07-29-2022 End: 07-29-2022 ambulatory 07/29/2022 Infusion Infusion Therapy Denis Richey MD [address] [facility] [place] [place], [place] [phone] [facility] Start: 07-29-2022 End: 07-29-2022 Patient encounter procedure [facility] Start: 07-08-2022 End: 07-08-2022 ambulatory 07/08/2022 Infusion Infusion Therapy Denis Richey MD [address] [facility] [place] [address] [facility] Start: 07-08-2022 End: 07-08-2022 Patient encounter procedure 07/08/2022 Office Visit Gynecologic Oncology Ricarda Drew, LOGISTICAL ENGINEER - NET MVC DEVELOPER [address] [facility] [address] [place] [address] [facility] Start: 07-02-2022 Patient discharge [facility] Start: 07-01-2022 Application of intermittent pneumatic compression device [facility] Start: 07-01-2022 [facility] Start: 07-01-2022 Following clinical pathway protocol [facility] Start: 07-01-2022 Assessment of risk of venous thromboembolism [facility] Start: 07-01-2022 Fluid intake encouragement [facility] Start: 07-01-2022 Incentive spirometry [facility] Start: 07-01-2022 Insertion of catheter into peripheral vein [facility] Start: 07-01-2022 Introduction of urinary catheter [facility] Start: 07-01-2022 Measuring intake and output [facility] Start: 07-01-2022 Oxygen therapy [facility] Start: 07-01-2022 Providing care according to standard [facility] Start: 07-01-2022 Provision of activity privileges [facility] Start: 07-01-2022 Referral to service [facility] Start: 07-01-2022 Viral nucleic acid assay [facility] Start: 07-01-2022 End: 07-01-2022 [facility] Start: 07-01-2022 Verification routine [facility] Start: 07-01-2022 Admission procedure [facility] Start: 07-01-2022 [facility] Start: 07-01-2022 End: 07-01-2022 Blood culture [facility] Start: 07-01-2022 [facility] Start: 07-01-2022 End: 07-01-2022 ambulatory 07/01/2022 Infusion Infusion Therapy Denis Richey MD [address] [facility] [place] [address] [facility] Start: 07-01-2022 End: 07-01-2022 Patient encounter procedure 07/01/2022 Office Visit Gynecologic Oncology Ricarda Drew, LOGISTICAL ENGINEER - NET MVC DEVELOPER [address] [facility] [address] [place] [address] [facility] Start: 07-01-2022 CBC W Auto Differential panel - Blood [facility] Start: 06-28-2022 Screening for malignant neoplasm of breast Mammogram [facility] Start: 06-10-2022 End: 06-10-2022 ambulatory 06/10/2022 Infusion Infusion Therapy Dneis Richey MD [address] [place] [place] [address] [facility] Start: 06-10-2022 End: 06-10-2022 Patient encounter procedure 06/10/2022 Office Visit Gynecologic Oncology Lupe Mason, LOGISTICAL ENGINEER - NET MVC DEVELOPER [address] [facility] [address] [place] [address] [facility] Start: 05-20-2022 End: 05-20-2022 ambulatory 05/20/2022 Infusion Infusion Therapy Denis Richey MD [address] [place] [place] [address] [facility] Start: 04-29-2022 End: 04-29-2022 ambulatory 04/29/2022 Infusion Infusion Therapy Denis Richey MD [address] [place] [place] [address] [facility] Start: 04-29-2022 End: 04-29-2022 Patient encounter procedure 04/29/2022 Office Visit Gynecologic Oncology Ricarda Drew, LOGISTICAL ENGINEER - NET MVC DEVELOPER [address] [facility] [address] [place] [address] [facility] [place] 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 Oncology Start: 11-25-2021 Influenza vaccination Influenza Vaccine (#1) [facility] Start: 10-18-2021 Patient referral [facility] Work Phone: Start: 10-11-2021 Venous catheter care management [facility] Work Phone: Start: 10-11-2021 Cancer Ag 125 [Units/volume] in Serum or Plasma [facility] Work Phone: Start: 04-07-2021 COVID-19 Vaccine (3 - Booster for Krys series) COVID-19 Vaccine (3 - Booster for Krys series) [facility] Start: 04-07-2021 COVID-19 Vaccine (3 - Krys risk series) COVID-19 Vaccine (3 - Krys risk series) [facility] Start: 11-25-2020 Influenza vaccination Flu vaccine (Season Ended) [facility] Work Phone: Start: 11-11-2020 Venous catheter care management [facility] Start: 09-08-2020 Venous catheter care management [facility] Start: 07-31-2020 End: 07-31-2020 Office Visit 07/31/2020 Office Visit Gynecologic Oncology Denis Richey MD [address] [place] [address], [address] [place] [address] [phone] [facility] [place] 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 Oncology Start: 07-16-2020 End: 07-16-2020 Appointment [facility] General Surgery Start: 2017 Pneumococcal 65+ years Vaccine (1 of 1 - PPSV23) Pneumococcal 65+ years Vaccine (1 of 1 - PPSV23) [facility] Work Phone: Start: 2017 Pneumococcal Vaccine: 65+ Years (1 - PCV) Pneumococcal Vaccine: 65+ Years (1 - PCV) [facility] Start: 2012 RSV Immunization aged 60 or older (1 - 1-dose 60+ series) RSV Immunization aged 60 or older (1 - 1-dose 60+ series) [facility] Start: 2012 RSV Immunization for Adults (1 - Risk 60-74 years 1-dose series) RSV Immunization for Adults (1 - Risk 60-74 years 1-dose series) [facility] Start: 11-28-2007 Screening for osteoporosis DEXA (modify frequency per FRAX score) [facility] Work Phone: Start: 2002 Screening for malignant neoplasm of breast Breast cancer screen [facility] Work Phone: Start: 2002 Screening for malignant neoplasm of colon Colon cancer screen colonoscopy [facility] Work Phone: Start: 2002 Shingles Vaccine (1 of 2) Shingles Vaccine (1 of 2) [facility] Work Phone: Start: 2002 Zoster Vaccines (1 of 2) Zoster Vaccines (1 of 2) [facility] Start: 1992 Diabetes screen Diabetes screen [facility] Work Phone: Start: 1992 Lipid panel Lipid screen [facility] Work Phone: Start: 1992 Screening for malignant neoplasm of breast Mammogram [facility] Start: 11-28-1971 DTaP/Tdap/Td vaccine (1 - Tdap) DTaP/Tdap/Td vaccine (1 - Tdap) [facility] Work Phone: Start: 11-28-1971 DTaP/Tdap/Td Vaccines (1 - Tdap) DTaP/Tdap/Td Vaccines (1 - Tdap) [facility] Start: 11-28-1971 Pneumococcal Vaccine: 50+ Years (1 of 2 - PCV) Pneumococcal Vaccine: 50+ Years (1 of 2 - PCV) [facility] Start: 11-28-1971 Zoster Vaccines (1 of 2) Zoster Vaccines (1 of 2) [facility] Start: 1970 Diabetes mellitus screening Diabetes Screening [facility] Start: 1970 Hepatitis C screening Hepatitis C Screening [facility] Start: 1968 COVID-19 Vaccine (1) COVID-19 Vaccine (1) [facility] Work Phone: Start: 1964 Depression Screening Depression Screening [facility] Start: 1962 Diabetic foot examination Diabetes: Foot Exam [facility] Start: 1962 Glaucoma screening Diabetes: Retinopathy Screening [facility] Start: 1962 Preventive dental service Diabetes: Dental Exam [facility] Start: 1958 Pneumococcal Vaccine: 65+ Years (1 - PCV) Pneumococcal Vaccine: 65+ Years (1 - PCV) [facility] Start: 1958 Pneumococcal Vaccine: 65+ Years (1 of 2 - PCV) Pneumococcal Vaccine: 65+ Years (1 of 2 - PCV) [facility] Start: 05-27-1953 Examination of skin Derm Melanoma Skin Check [facility] Start: 1952 Hemoglobin A1c measurement Diabetes: Hemoglobin A1C [facility] Start: 1952 Hepatitis B Vaccines (1 of 3 - 3-dose series) Hepatitis B Vaccines (1 of 3 - 3-dose series) [facility] Start: 1952 Hepatitis C screening Hepatitis C screen [facility] [employer] Phone: Start: 1952 Lipid panel Lipid Panel [facility] Start: 1952 Medicare Annual Wellness (AWV) Medicare Annual Wellness (AWV) [facility] Start: 1952 Screening for malignant neoplasm of colon [facility] Start: 1952 Screening for osteoporosis Bone Density Scan [facility] Bacteria identified in Blood by Culture Blood Culture [facility] Bacteria identified in Urine by Culture Urine Culture [facility] End: 04-07-2024 CA 125 CA 125 Lab Routine Other specified complication of vascular prosthetic devices, implants and grafts, initial encounter (HCC) Endometrial cancer ([facility]/HCC) (HCC) Every 3 weeks for 18 Occurrences starting 04/07/2023 until 04/07/2024, 1 completed [facility] [employer] Comment on above: Every 3 weeks for 18 Occurrences startin g 04/07/2023 until 04/07/2024, 1 completed End: 06-08-2024 CA 125 CA 125 Lab Routine Endometrial cancer ([facility]/HCC) (HCC) Other specified complication of vascular prosthetic devices, implants and grafts, initial encounter ([facility]) Every 3 weeks for 18 Occurrences starting 06/09/2023 until 06/08/2024, 1 completed [facility] [employer] Comment on above: Every 3 weeks for 18 Occurrences startin g 06/09/2023 until 06/08/2024, 1 completed End: 06-29-2024 CA 125 CA 125 Lab Routine Endometrial cancer (CMS/HCC) (HCC) Other specified complication of vascular prosthetic devices, implants and grafts, initial encounter (HCC) 18 Occurrences starting 06/30/2023 until 06/29/2024 [facility] [employer] Comment on above: 18 Occurrences starting 06/30/2023 until 06/29/2024 End: 08-31-2024 CA 125 CA 125 Lab Routine Endometrial cancer (CMS/HCC) (HCC) Other specified complication of vascular prosthetic devices, implants and grafts, initial encounter (HCC) 18 Occurrences starting 09/01/2023 until 08/31/2024, 1 completed [facility] [employer] Comment on above: 18 Occurrences starting 09/01/2023 until 08/31/2024, 1 completed End: 09-21-2024 CA 125 CA 125 Lab Routine Endometrial cancer (CMS/HCC) (HCC) Other specified complication of vascular prosthetic devices, implants and grafts, initial encounter (HCC) 18 Occurrences starting 09/22/2023 until 09/21/2024 [employer] Comment on above: 18 Occurrences starting 09/22/2023 until 09/21/2024 End: 10-12-2024 CA 125 CA 125 Lab Routine Endometrial cancer (CMS/HCC) (HCC) Other specified complication of vascular prosthetic devices, implants and grafts, initial encounter (HCC) 18 Occurrences starting 10/13/2023 until 10/12/2024, 1 completed [employer] Comment on above: 18 Occurrences starting 10/13/2023 until 10/12/2024, 1 completed End: 11-02-2024 CA 125 [facility] [employer] Comment on above: 18 Occurrences starting 11/03/2023 until 11/02/2024, 1 completed 18 Occurrences start ing 11/03/2023 until 11/02/2024, 2 completed End: 11-23-2024 CA 125 CA 125 Lab Routine Endometrial cancer (CMS/HCC) (HCC) Other specified complication of vascular prosthetic devices, implants and grafts, initial encounter (HCC) 18 Occurrences starting 11/24/2023 until 11/23/2024, 1 completed [facility] [employer] Comment on above: 18 Occurrences starting 11/24/2023 until 11/23/2024, 1 completed End: 12-14-2024 CA 125 CA 125 Lab Routine Endometrial cancer (CMS/HCC) (HCC) Other specified complication of vascular prosthetic devices, implants and grafts, initial encounter (HCC) 18 Occurrences starting 12/15/2023 until 12/14/2024, 1 completed [facility] Comment on above: 18 Occurrences starting 12/15/2023 until 12/14/2024, 1 completed End: 02-01-2025 CA 125 CA 125 Lab Routine Endometrial cancer (CMS/HCC) (HCC) Other specified complication of vascular prosthetic devices, implants and grafts, initial encounter (HCC) 18 Occurrences starting 02/02/2024 until 02/01/2025, 1 completed [facility] Comment on above: 18 Occurrences starting 02/02/2024 until 02/01/2025, 1 completed End: 03-01-2025 CA 125 CA 125 Lab Routine Endometrial cancer (CMS/HCC) (HCC) Other specified complication of vascular prosthetic devices, implants and grafts, initial encounter ([facility]) 18 Occurrences starting 03/01/2024 until 03/01/2025, 1 completed [facility] Comment on above: 18 Occurrences starting 03/01/2024 until 03/01/2025, 1 completed Cancer Ag 125 [Units/volume] in Serum or Plasma [facility] Work Phone: End: 11-12-2022 CANCER ANTIGEN [phone] - Miscellaneous Test [employer] Work Phone: Comment on above: Once (Lab) for 1 Occurrences starting until 11/12/2022 CBC W Auto Different ial panel - Blood [facility] Work Phone: End: 04-07-2024 CBC W Auto Differential panel - Blood CBC auto differential Lab Routine Other specified complication of vascular prosthetic devices, implants and grafts, initial encounter (HCC) Endometrial cancer (CMS/HCC) (HCC) Every 3 weeks for 18 Occurrences starting 04/07/2023 until 04/07/2024, 1 completed [employer] Work Phone: Comment on above: Every 3 weeks for 18 Occurrences startin g 04/07/2023 until 04/07/2024, 1 completed End: 06-08-2024 CBC W Auto Differential panel - Blood CBC auto differential Lab Routine Endometrial cancer (CMS/HCC) (HCC) Other specified complication of vascular prosthetic devices, implants and grafts, initial encounter (HCC) Every 3 weeks for 18 Occurrences starting 06/09/2023 until 06/08/2024, 1 completed [employer] Work Phone: Comment on above: Every 3 weeks for 18 Occurrences startin g 06/09/2023 until 06/08/2024, 1 completed End: 06-29-2024 CBC W Auto Differential panel - Blood CBC auto differential Lab Routine Endometrial cancer (CMS/HCC) (HCC) Other specified complication of vascular prosthetic devices, implants and grafts, initial encounter (HCC) 18 Occurrences starting 06/30/2023 until 06/29/2024 [employer] Work Phone: Comment on above: 18 Occurrences starting 06/30/2023 until 06/29/2024 End: 08-31-2024 CBC W Auto Differential panel - Blood CBC auto differential Lab Routine Endometrial cancer (CMS/HCC) (HCC) Other specified complication of vascular prosthetic devices, implants and grafts, initial encounter (HCC) 18 Occurrences starting 09/01/2023 until 08/31/2024, 1 completed [employer] Work Phone: Comment on above: 18 Occurrences starting 09/01/2023 until 08/31/2024, 1 completed End: 09-21-2024 CBC W Auto Differential panel - Blood CBC auto differential Lab Routine Endometrial cancer (CMS/HCC) (HCC) Other specified complication of vascular prosthetic devices, implants and grafts, initial encounter (HCC) 18 Occurrences starting 09/22/2023 until 09/21/2024 [employer] Work Phone: Comment on above: 18 Occurrences starting 09/22/2023 until 09/21/2024 End: 10-12-2024 CBC W Auto Differential panel - Blood CBC auto differential Lab Routine Endometrial cancer (CMS/HCC) (HCC) Other specified complication of vascular prosthetic devices, implants and grafts, initial encounter (HCC) 18 Occurrences starting 10/13/2023 until 10/12/2024, 1 completed [employer] Work Phone: Comment on above: 18 Occurrences starting 10/13/2023 until 10/12/2024, 1 completed End: 11-02-2024 CBC W Auto Differential panel - Blood CBC auto differential Lab Routine Endometrial cancer (CMS/HCC) (HCC) Other specified complication of vascular prosthetic devices, implants and grafts, initial encounter (HCC) 18 Occurrences starting 11/03/2023 until 11/02/2024, 1 completed [employer] Work Phone: Comment on above: 18 Occurrences starting 11/03/2023 until 11/02/2024, 1 completed End: 11-23-2024 CBC W Auto Differential panel - Blood CBC auto differential Lab Routine Endometrial cancer (CMS/HCC) (HCC) Other specified complication of vascular prosthetic devices, implants and grafts, initial encounter (HCC) 18 Occurrences starting 11/24/2023 until 11/23/2024, 1 completed [employer] Work Phone: Comment on above: 18 Occurrences starting 11/24/2023 until 11/23/2024, 1 completed End: 12-14-2024 CBC W Auto Differential panel - Blood CBC auto differential Lab Routine Endometrial cancer (CMS/HCC) (HCC) Other specified complication of vascular prosthetic devices, implants and grafts, initial encounter (HCC) 18 Occurrences starting 12/15/2023 until 12/14/2024, 1 completed [employer] Work Phone: Comment on above: 18 Occurrences starting 12/15/2023 until 12/14/2024, 1 completed End: 02-01-2025 CBC W Auto Differential panel - Blood CBC auto differential Lab Routine Endometrial cancer (CMS/HCC) (HCC) Other specified complication of vascular prosthetic devices, implants and grafts, initial encounter (HCC) 18 Occurrences starting 02/02/2024 until 02/01/2025, 1 completed [employer] Work Phone: Comment on above: 18 Occurrences starting 02/02/2024 until 02/01/2025, 1 completed End: 03-01-2025 CBC W Auto Differential panel - Blood CBC auto differential Lab Routine Endometrial cancer (CMS/HCC) (HCC) Other specified complication of vascular prosthetic devices, implants and grafts, initial encounter (HCC) 18 Occurrences starting 03/01/2024 until 03/01/2025, 1 completed [employer] Work Phone: Comment on above: 18 Occurrences starting 03/01/2024 until 03/01/2025, 1 completed End: 04-07-2024 Comprehensive metabolic 1998 panel - Serum or Plasma Comprehensive metabolic panel Lab Routine Other specified complication of vascular prosthetic devices, implants and grafts, initial encounter (HCC) Endometrial cancer (CMS/HCC) (HCC) Every 3 weeks for 18 Occurrences starting 04/07/2023 until 04/07/2024, 1 completed [facility] [employer] Comment on above: Every 3 weeks for 18 Occurrences startin g 04/07/2023 until 04/07/2024, 1 completed End: 06-08-2024 Comprehensive metabolic 1997 panel - Serum or Plasma Comprehensive metabolic panel Lab Routine Endometrial cancer (CMS/HCC) (HCC) Other specified complication of vascular prosthetic devices, implants and grafts, initial encounter (HCC) Every 3 weeks for 18 Occurrences starting 06/09/2023 until 06/08/2024, 1 completed [facility] [employer] Comment on above: Every 3 weeks for 18 Occurrences startin g 06/09/2023 until 06/08/2024, 1 completed End: 06-29-2024 Comprehensive metabolic 1998 panel - Serum or Plasma Comprehensive metabolic panel Lab Routine Endometrial cancer (CMS/HCC) (HCC) Other specified complication of vascular prosthetic devices, implants and grafts, initial encounter (HCC) 18 Occurrences starting 06/30/2023 until 06/29/2024 [facility] Comment on above: 18 Occurrences starting 06/30/2023 until 06/29/2024 End: 08-31-2024 Comprehensive metabolic 1998 panel - Serum or Plasma Comprehensive metabolic panel Lab Routine Endometrial cancer (CMS/HCC) (HCC) Other specified complication of vascular prosthetic devices, implants and grafts, initial encounter (HCC) 18 Occurrences starting 09/01/2023 until 08/31/2024, 1 completed [facility] [employer] Comment on above: 18 Occurrences starting 09/01/2023 until 08/31/2024, 1 completed End: 09-21-2024 Comprehensive metabolic 1997 panel - Serum or Plasma Comprehensive metabolic panel Lab Routine Endometrial cancer (CMS/HCC) (HCC) Other specified complication of vascular prosthetic devices, implants and grafts, initial encounter (HCC) 18 Occurrences starting 09/22/2023 until 09/21/2024 [facility] Comment on above: 18 Occurrences starting 09/22/2023 until 09/21/2024 End: 10-12-2024 Comprehensive metabolic 1997 panel - Serum or Plasma Comprehensive metabolic panel Lab Routine Endometrial cancer (CMS/HCC) (HCC) Other specified complication of vascular prosthetic devices, implants and grafts, initial encounter (HCC) 18 Occurrences starting 10/13/2023 until 10/12/2024, 1 completed [facility] Comment on above: 18 Occurrences starting 10/13/2023 until 10/12/2024, 1 completed End: 11-02-2024 Comprehensive metabolic 1998 panel - Serum or Plasma Comprehensive metabolic panel Lab Routine Endometrial cancer (CMS/HCC) (HCC) Other specified complication of vascular prosthetic devices, implants and grafts, initial encounter ([facility]) 18 Occurrences starting 11/03/2023 until 11/02/2024, 1 completed [facility] Comment on above: 18 Occurrences starting 11/03/2023 until 11/02/2024, 1 completed End: 11-23-2024 Comprehensive metabolic 1998 panel - Serum or Plasma Comprehensive metabolic panel Lab Routine Endometrial cancer (CMS/HCC) (HCC) Other specified complication of vascular prosthetic devices, implants and grafts, initial encounter ([facility]) 18 Occurrences starting 11/24/2023 until 11/23/2024, 1 completed [facility] [employer] Comment on above: 18 Occurrences starting 11/24/2023 until 11/23/2024, 1 completed End: 12-14-2024 Comprehensive metabolic 1998 panel - Serum or Plasma Comprehensive metabolic panel Lab Routine Endometrial cancer (CMS/HCC) (HCC) Other specified complication of vascular prosthetic devices, implants and grafts, initial encounter ([facility]) 18 Occurrences starting 12/15/2023 until 12/14/2024, 1 completed [facility] [employer] Comment on above: 18 Occurrences starting 12/15/2023 until 12/14/2024, 1 completed End: 02-01-2025 Comprehensive metabolic 1998 panel - Serum or Plasma Comprehensive metabolic panel Lab Routine Endometrial cancer (CMS/HCC) (HCC) Other specified complication of vascular prosthetic devices, implants and grafts, initial encounter ([facility]) 18 Occurrences starting 02/02/2024 until 02/01/2025, 1 completed [facility] Comment on above: 18 Occurrences starting 02/02/2024 until 02/01/2025, 1 completed End: 03-01-2025 Comprehensive metabolic 1998 panel - Serum or Plasma Comprehensive metabolic panel Lab Routine Endometrial cancer (CMS/HCC) (HCC) Other specified complication of vascular prosthetic devices, implants and grafts, initial encounter ([facility]) 18 Occurrences starting 03/01/2024 until 03/01/2025, 1 completed [facility] Comment on above: 18 Occurrences starting 03/01/2024 until 03/01/2025, [address] Abdomen and Pelvi s W contrast IV [facility] End: 01-26-2023 DBT Breast - bilateral screening [facility] Work Phone: Comment on above: Once for 1 Occurrences starting 01/27/20 23 until 01/26/2023 MG Breast Diagnostic [facility] Work Phone: Patient Education [facility] Work Phone: Patient referral [facility] Work Phone: Respiratory Panel (PCR) Respiratory Panel (PCR) [facility] Respiratory pathogen s DNA and RNA 12b panel - Unspecified specimen by NICOLE with probe detection [facility] Streptococcus pyogen es antigen assay Group A Streptococcus Rapid Screen [facility] Tissue exam [facility] Work Phone: Comment on above: Release Upon Ordering for 1 Occurrences starting 04/16/2024, 1 completed Urine culture Urine Culture [facility] US Breast limited [facility] Work Phone: Immunizations Immunization Date Immunization Notes Care Provider [facility] 02-10-2021 [place]. Valente Wiseman Work Phone: [facility] 08-19-2020 Krys SARS-CoV-2 Vaccination Ricarda Drew LOGISTICAL [employer]INE[employer] Work Phone: [facility] Payers Date Payer Category Payer Self-pay [id number] 2021 Medicare supplementa l policy (as second payer) [facility] MEDICARE SUPPLEMENT Member Subscriber Plan / Payer (Effective 2021-Present) Name: Cary Swenson Relation to Subscriber: Self Name: Cary Swenson Payer ID: Not on file Type: Supplement Address: [place] [id number] 2021 Unknown [employer] [place] MEDIC[place] SUPPLEMENT [id number] 2021-Present [address] [place] [address] Supplement [id number] 2021 Unknown [id number] 2020 Medicare [id number] 2020 Medicare [id number] 2020 Unknown [id number] Private Health Insurance [facility] [id number] Unknown [id number] .462 Unknown [id number] .462 Unknown [id number] .462 Unknown [id number] .462 Unknown [id number] .462 Unknown [id number] .462 Unknown [id number] 2.16.840.1.212078.3.579.2 .462 Unknown [id number] .462 Unknown [id number] [id number] .462 Unknown [id number] [id number] .462 Unknown [id number] [id number] .462 Unknown [id number] [id number] .462 Unknown [id number] [id number] .462 Unknown [id number] [id number] .462 Unknown [id number] [id number] .462 Unknown [id number] .462 Unknown [id number] .462 Social History Date Type Detail Facility Start: 07-09-2020 End: 07-01-2022 Tobacco smoking status NHIS Never smoker [employer] Work Phone: Start: 07-09-2020 Tobacco use and exposure Never used [employer] Work Phone: Start: 07-09-2020 End: 03-11-2022 Alcohol intake Current drinker of alcohol (finding) [employer] Work Phone: Start: 07-09-2020 History SDOH Alcohol Frequency 1 [employer] Work Phone: Start: 07-09-2020 Alcohol Comment 1-2 times/yr [employer] Work Phone: Sex Assigned At Not on file [employer] Work Phone: Start: 03-25-2022 End: 12-02-2022 Exposure to SARS-CoV-2 (event) Not sure [employer] Work Phone: Start: 02-17-2021 End: 07-01-2022 Tobacco smoking status NHIS Unknown if ever smoked [facility] Start: 1950 Sex Assigned At Female [facility] Start: 07-08-2022 End: 01-20-2023 History of Social function [facility] Start: 07-08-2022 End: 01-20-2023 Tobacco use panel [facility] Start: 03-08-2022 Gender identity Identifies as female gender (finding) [facility] Start: 03-08-2022 Sexual orientation Heterosexual (fin ding) [facility] Start: 01-13-2023 End: 06-30-2023 Alcohol intake Ex-drinker (finding) [facility] How hard is it for y ou to pay for the very basics like food, housing, medical care, and heating Not hard at all [facility] (I/We) worried wheth er (my/our) food would run out before (I/we) got money to buy more. Never true [facility] Start: 10-25-2021 End: 07-22-2024 Sex Female (finding) [facility] Medical Equipment Procedure Code Equipment Code Equipment Origin al Text Equipment Identifier Dates Insertion, vascular access port PORT,POWER 8FR FDA Start: 09-07-2020 Insertion, vascular access port PORT,POWER 8FR FDA Start: 09-07-2020 Insertion, vascular access port PORT,POWER 8FR FDA Start: 09-07-2020 Insertion, vascular access port PORT,POWER 8FR FDA Start: 09-07-2020 Insertion, vascular access port PORT,POWER 8FR FDA Start: 09-07-2020 Insertion, vascular access port PORT,POWER 8FR FDA Start: 09-07-2020 Insertion, vascular access port PORT,POWER 8FR FDA Start: 09-07-2020 Insertion, vascular access port PORT,POWER 8FR FDA Start: 09-07-2020 Insertion, vascular access port PORT,POWER 8FR FDA Start: 09-07-2020 Insertion, vascular access port PORT,POWER 8FR FDA Start: 09-07-2020 Insertion, vascular access port PORT,POWER 8FR FDA Start: 09-07-2020 Insertion, vascular access port PORT,POWER 8FR FDA Start: 09-07-2020 Insertion, vascular access port PORT,POWER 8FR FDA Start: 09-07-2020 Insertion, vascular access port PORT,POWER 8FR FDA Start: 09-07-2020 Insertion, vascular access port PORT,POWER 8FR FDA Start: 09-07-2020 Insertion, vascular access port PORT,POWER 8FR FDA Start: 09-07-2020 Insertion, vascular access port PORT,POWER 8FR FDA Start: 09-07-2020 Insertion, vascular access port PORT,POWER 8FR FDA Start: 09-07-2020 Insertion, vascular access port PORT,POWER 8FR FDA Start: 09-07-2020 Insertion, vascular access port PORT,POWER 8FR FDA Start: 09-07-2020 Insertion, vascular access port PORT,POWER 8FR FDA Start: 09-07-2020 Insertion, vascular access port PORT,POWER 8FR FDA Start: 09-07-2020 Insertion, vascular access port PORT,POWER 8FR FDA Start: 09-07-2020 Insertion, vascular access port PORT,POWER 8FR FDA Start: 09-07-2020 Goals Date Patient Goal Desired Activity /State Functional Status Date Assessment Result Facility 07-02-2022 Functional status Ambulates [facility] Work Phone: Mental Status Date Assessment Result Facility 07-02-2022 Cognitive function Appropriate;Cooperativ e [facility] Work Phone: 07-01-2022 Cognitive function Level Of Cons ciousness Awake;Alert;Appropriate;Follow s Commands [facility] Work Phone: Clinical Notes 04-04-2022 to 01-03-2025 Telephone Encounter - Denis Richey MD - 01/03/2025 3:04 PM EDTTelephone Encounter - Denis Richey MD - 01/03/2025 3:04 PM Mathieu Glaser RN - 01/03/2025 2:00 PM EDT Note Date & Type Note Facility 01-03-2025 Telephone encount er Note Called with ca125 [facility] 01-03-2025 Miscellaneous Notes Formattin g of this note might be different from the original. Called with ca125 documented in this encounter [facility] 01-03-2025 History of Presen t illness Narrative Arrival Note Infusion Patient is here for keytruda. Labs were drawn via peripheral IV, obtained but do not have to wait for tx. Pt denies any adverse rx to previous tx. 1507 Ordered treatment completed. Patient discharged without any issues. Patient has a copy of next infusion appointment and verbalizes understanding. All questions answered. documented in this encounter [facility] 11-22-2024 History of Presen t illness Narrative Pt arrives from for cycle 7 Keytruda. On assessment pt has no immune-mediated side effects. Admits to some recent hair loss but otherwise denies any new complaints. Does state that her neuropathy flares up occasionally after treatment but then returns to baseline. Previously discussed with MD and Rosie SOLORZANO. PIV placed with ease. CBC, CMP, CA125, TSH, free T4, Vit D obtained and sent to CCL. POC reviewed. 1329 Treatment complete and tolerated well. PIV removed and gauze/coban placed to site. Pt aware of next apt. Ambulatory home upon discharge in no acute distress. 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 , was diagnosed with a stage III C1 endometrial cancer in June 2020. She was treated with robotic hysterectomy BSO sentinel lymph node sampling followed by chemotherapy with carboplatinum and Taxol and Herceptin in [place]. However the patient developed a severe reaction after the first course. This was in early September. The patient decided not to pursue any further chemotherapy after that point. CT A/P/C 10/15 was NILESH In February 2022 patient presented to the office complaining of a gregoria vaginal discharge. Exam revealed anterior vaginal wall replaced by malignancy. 03/11/22 Biopsy performed in office. Final Diagnosis VAGINA, BIOPSY- VAGINAL MUCOSAL FRAGMENTS WITH INVOLVEMENT BY HIGH GRADE SEROUS CARCINOMA. 03/16/22 PET showed positive for carcinoma Pt receiving Trastuzumab, Carboplatin, Abraxane, last dose 07/29/22 Patient was then started on Herceptin maintenance. PET scan September 2023 showed no evidence of recurrent disease. However PET scan in March 2024 showed evidence of periaortic safia recurrence. This was resected in the operating room , was positive for recurrent cancer. After discussion decided on chemotherapy with carboplatinum and Keytruda x 3 along with Keytruda maintenance. Repeat PET on 09/10 showed no FDG avid disease. Patient presents today for cycle #7 of Keytruda. She reports that she is doing much better with treatment. She does have a slight rash. She also seems to be having hair loss. Denies any grade 3 or 4 toxicities and has a good performance status (ECOG 0). Past Medical History: Diagnosis Date Cancer (CMS/HCC) (HCC) 07/15/2020 Endometrial Hx antineoplastic chemo 04/04/2022 ended july 2022 Osteoarthritis Osteopenia Past Surgical History: Procedure Laterality Date FRACTURE SURGERY Left 1973 ankle HEMORRHOID SURGERY HYSTERECTOMY KNEE SURGERY Right 1969 and 1970 open OTHER SURGICAL HISTORY 07/16/2020 [facility] BSO LND; Dr. Denis Richey SINUS SURGERY 2007 Social History Socioeconomic History Marital status: Single Tobacco Use Smoking status: Never Smokeless tobacco: Never Vaping Use Vaping status: Never Used Substance and Sexual Activity Alcohol use: Not Currently Drug use: Never Sexual activity: Not Currently Partners: Male Social Drivers of Health Financial Resource Strain: Low Risk (01/20/2023) Overall Financial Resource Strain (CARDIA) Difficulty of Paying Living Expenses: Not hard at all Food Insecurity: No Food Insecurity (01/20/2023) Hunger Vital Sign Worried About Running Out of Food in the Last Year: Never true Ran Out of Food in the Last Year: Never true Transportation Needs: No Transportation Needs (01/20/2023) PRAPARE - Transportation Lack of Transportation (Medical): No Lack of Transportation (Non-Medical): No Current Outpatient Medications Medication Sig Dispense Refill Alpha-Lipoic Acid 600 MG capsule Take by mouth daily. B Osdofxq-D-Lnzyysd (B-COMPLEX/VITAMIN C, W/ CA, PO) Take by mouth. multivitamin with minerals (Cerovite) 18-400 mg-mcg tablet tablet Take 1 tablet by mouth daily. ondansetron (Zofran) 8 MG tablet Take 1 tablet (8 mg) by mouth every 8 hours as needed for nausea or vomiting. 20 tablet 2 prochlorperazine (Compazine) 10 MG tablet Take 1 tablet (10 mg) by mouth every 6 hours as needed for nausea or vomiting. 30 tablet 2 saccharomyces boulardii (Florastor) 250 MG capsule Take 250 mg by mouth 2 times daily. No current facility-administered medications for this visit. Facility-Administered Medications Ordered in Other Visits Medication Dose Route Frequency Provider Last Rate Last Admin sodium chloride 0.9 % infusion 5-250 mL/hr IntraVENous Once PRN Denis Richey MD Review of Systems Paclitaxel and Levofloxacin BP (!) 170/80 Pulse 88 Wt 71.8 kg (158 lb 6.4 oz) BMI 28.06 kg/m Physical Exam Vitals reviewed. Neurological: Mental Status: She is alert and oriented to person, place, and time. Psychiatric: Mood and Affect: Mood normal. Behavior: Behavior normal. Assessment: 73-year-old female with recurrent endometrial cancer currently undergoing Keytruda maintenance after completing 3 cycles of carboplatin with Keytruda. Plan: Plan to proceed with treatment pending labs. Check TSH, T4 and vitamin D due to hair loss. The current plan is to continue Keytruda maintenance every 6 weeks until progression or toxicity. PET scan in February. - I explained diagnosis and treatment plan; the patient understands the plan of care and agrees. The patient had an opportunity to ask questions, all of which were answered to the best of my ability. JULIA Corado CNP I spent a total time of 20 minutes reviewing previous notes, test results, obtaining history, communicating results to the patient as well as counseling the patient, documenting clinical information in the patient's electronic medical record and coordinating care for the patient. Disclaimer: This note was dictated by speech recognition. 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 documented in this encounter [facility] [place] 10-11-2024 History of Presen t illness Narrative 1405: Patient is here for keytruda. PIV inserted in RAC; blood drawn for labs. Per orders, no need to wait on results. Will proceed with treatment. 1530: Ordered treatment completed. Patient discharged with homegoing instructions and next appointment date/time. All questions answered. documented in this encounter [facility] [place] 09-16-2024 Telephone encount er Note Pt called with PET [facility] [place] 09-16-2024 Miscellaneous Notes Formattin g of this note might be different from the original. Pt called with PET documented in this encounter [facility] [place] 09-03-2024 Telephone encount er Note Patient called back, requesting PET/CT order be sent to [facility] for scheduling. Order has been faxed over. Asked patient if she can call back confirming appt with facility. [place] Pet/CT office P:[phone] F [phone] [facility] [place] 09-03-2024 Miscellaneous Notes Formattin g of this note might be different from the original. Patient called back, requesting PET/CT order be sent to [facility] for scheduling. Order has been faxed over. Asked patient if she can call back confirming appt with facility. [place] [facility] office P:[phone] F [phone] LVM for patient to call back to get scheduled for PET/CT scan. documented in this encounter [facility] [place] 09-03-2024 Telephone encount er Note LVM for patient to call back to get scheduled for PET/CT scan. [facility] [place] 08-30-2024 History of Presen t illness Narrative Patient here for Keytruda, labs drawn via PIV. Patient denies any issues after last treatment. 1116 Ordered treatment completed. Patient discharged without any issues. Patient has a copy of next infusion appointment and verbalizes understanding. All questions answered. documented in this encounter [facility] [place] 08-07-2024 Telephone encount er Note Oscar calling back, stating that the codes are still being rejected. Please call back at [phone] to further discuss, thank you! [facility] [place] 08-07-2024 Miscellaneous Notes Formattin g of this note might be different from the original. Oscar calling back, stating that the codes are still being rejected. Please call back at [phone] to further discuss, thank you! Added chemo code to order and faxed with confirmation. Pt needs new CA125 order. Current order has wrong code so Medicare won't cover labs. Please fax to Oscar at [facility] @ . Thank you documented in this encounter [facility] [place] 08-07-2024 Telephone encount er Note Added chemo code to order and faxed with confirmation. [facility] [place] 08-07-2024 Telephone encount er Note Pt needs new CA125 order. Current order has wrong code so Medicare won't cover labs. Please fax to Nickmarisol at [facility] @ . Thank you [facility] [place] 07-22-2024 Telephone encount er Note Called patient regarding her CA-125. She is doing better this week. I will recheck her thyroid function sooner since it was abnormal then normal [facility] [place] 07-22-2024 Miscellaneous Notes Formattin g of this note might be different from the original. Called patient regarding her CA-125. She is doing better this week. I will recheck her thyroid function sooner since it was abnormal then normal documented in this encounter [facility] [place] 07-19-2024 History of Presen t illness Narrative 1125: Patient here for maintenace Keytruda treatment. PIVplaced in R. AC. With specimen collected and sent to lab. 1200: Labs resulted and parameters met. Patient proceeding with treatment. 1315: Ordered treatment completed. Patient discharged without any issues. Patient has a copy of next infusion appointment and verbalizes understanding. All questions answered. documented in this encounter [facility] [place] 06-28-2024 History of Presen t illness Narrative 1110 Pt arrived for Keytruda/Carboplatin treatment. Pt states that she is feeling well today. Reports mild fatigue, unchanged N/T, and intermittent heartburn. Pt denies any new complaints at this time. CA125 drawn via PIV and sent stat to CCL. 1405 Pt tolerated Keytruda/Carboplatin treatment well. Pt aware of POC as well as next follow up appointments. Pt safely left infusion via ambulation in a stable condition with her family documented in this encounter [facility] 06-28-2024 History of Presen t illness Narrative CC: 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 , was diagnosed with a stage III C1 endometrial cancer in June 2020. She was treated with robotic hysterectomy BSO sentinel lymph node sampling followed by chemotherapy with carboplatinum and Taxol and Herceptin in [place]. However the patient developed a severe reaction after the first course. This was in early September. The patient decided not to pursue any further chemotherapy after that point. CT A/P/C 10/15 was NILESH In February 2022 patient presented to the office complaining of a gregoria vaginal discharge. Exam revealed anterior vaginal wall replaced by malignancy. 03/11/22 Biopsy performed in office. Final Diagnosis VAGINA, BIOPSY- VAGINAL MUCOSAL FRAGMENTS WITH INVOLVEMENT BY HIGH GRADE SEROUS CARCINOMA. 03/16/22 PET showed positive for carcinoma Pt receiving Trastuzumab, Carboplatin, Abraxane, last dose 07/29/22 Patient was then started on Herceptin maintenance. PET scan September 2023 showed no evidence of recurrent disease. However PET scan in March 2024 showed evidence of periaortic safia recurrence. This was resected in the operating room , was positive for recurrent cancer. After discussion decided on chemotherapy with carboplatinum and Keytruda x 3 along with Keytruda maintenance.here for cycle #3, About 2 weeks ago some LLQ pain by incision this pain has now resolved but she does feel a small lump in the incision line. Denies any vaginal bleeding, has been having some heartburn issues. Has also been noticing some issues with insomnia. Denies any grade 3 or 4 toxicities and has a good performance status Past Medical History: Diagnosis Date Cancer (CMS/HCC) (HCC) 07/15/2020 Endometrial Hx antineoplastic chemo 04/04/2022 ended july 2022 Osteoarthritis Osteopenia Past Surgical History: Procedure Laterality Date FRACTURE SURGERY Left 1973 ankle HEMORRHOID SURGERY KNEE SURGERY Right 1969 and 1970 open OTHER SURGICAL HISTORY 07/16/2020 [facility] BSO LND; Dr. Denis Richey SINUS SURGERY 2007 Social History Socioeconomic History Marital status: Single Tobacco Use Smoking status: Never Smokeless tobacco: Never Vaping Use Vaping status: Never Used Substance and Sexual Activity Alcohol use: Not Currently Drug use: Never Sexual activity: Not Currently Partners: Male Social Drivers of Health Financial Resource Strain: Low Risk (01/20/2023) Overall Financial Resource Strain (CARDIA) Difficulty of Paying Living Expenses: Not hard at all Food Insecurity: No Food Insecurity (01/20/2023) Hunger Vital Sign Worried About Running Out of Food in the Last Year: Never true Ran Out of Food in the Last Year: Never true Transportation Needs: No Transportation Needs (01/20/2023) PRAPARE - Transportation Lack of Transportation (Medical): No Lack of Transportation (Non-Medical): No Current Outpatient Medications Medication Sig Dispense Refill Alpha-Lipoic Acid 600 MG capsule Take by mouth daily. B Ycxvbpb-F-Nxbgbtj (B-COMPLEX/VITAMIN C, W/ CA, PO) Take by mouth. ibuprofen 600 MG tablet Take 1 tablet (600 mg) by mouth every 6 hours. 60 tablet 0 multivitamin with minerals (Cerovite) 18-400 mg-mcg tablet tablet Take 1 tablet by mouth daily. ondansetron (Zofran) 8 MG tablet Take 1 tablet (8 mg) by mouth every 8 hours as needed for nausea or vomiting. 20 tablet 2 prochlorperazine (Compazine) 10 MG tablet Take 1 tablet (10 mg) by mouth every 6 hours as needed for nausea or vomiting. 30 tablet 2 saccharomyces boulardii (Florastor) 250 MG capsule Take 250 mg by mouth 2 times daily. No current facility-administered medications for this visit. Facility-Administered Medications Ordered in Other Visits Medication Dose Route Frequency Provider Last Rate Last Admin sodium chloride 0.9 % infusion 5-250 mL/hr IntraVENous Once PRN Denis Richey MD Review of Systems Gastrointestinal: Episodic heartburn pain Hematological: Negative for adenopathy. Paclitaxel and Levofloxacin There were no vitals taken for this visit. Physical Exam Vitals and nursing note reviewed. Exam conducted with a business services vice president present. Constitutional: Appearance: Normal appearance. Abdominal: General: Abdomen is flat. Palpations: Abdomen is soft. Comments: Well-healed left paramedian incision, sutures felt under the skin but no evidence of nodularity or masses the suture knot does correspond to the small lump the patient feels Neurological: Mental Status: She is alert. Psychiatric: Mood and Affect: Mood normal. Behavior: Behavior normal. Assessment: Recurrent endometrial cancer currently undergoing carboplatin Keytruda x 3 that would do Keytruda maintenance alone. Plan: Chemotherapy labs have been checked, chemotherapy orders have been calculated sinus at the infusion center today. Discussed long-term plan of doing Keytruda every 6 weeks after this third dose of chemotherapy, we will plan on PET scan in August. Total time spent with chemotherapy management with orders laboratory studies as well as coordination of care was 25 minutes documented in this encounter [facility] 06-07-2024 History of Presen t illness Narrative Pt arrived ambulatory for C2 D1 Keytruda/Carbo tx. CBC, CMP, TSH drawn at [facility] on 06/06/24. CA125 drawn via peripheral IV start & sent to [facility] lab. Pt reports having headaches, mouth sores, and nausea for the first week after last treatment but those sx have resolved. Will try sucking on ice chips during Carbo infusion today to see if it helps to prevent mouth sores this cycle. Denies any other new issues/concerns. See toxicity assessment. Decadron dose decreased to 8mg today by provider and pt requested for it to be run over 40 min instead of 20. 1539: Pt tolerated tx without incident. IV removed. Site benign. Pt aware of next infusion appt. Discharged home in stable condition with daughters. documented in this encounter [facility] 06-07-2024 History of Presen t illness Narrative CC: Here today for cycle 2 carbo/keytruda. 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 , was diagnosed with a stage III C1 endometrial cancer in June 2020. She was treated with robotic hysterectomy BSO sentinel lymph node sampling followed by chemotherapy with carboplatinum and Taxol and Herceptin in [place]. However the patient developed a severe reaction after the first course. This was in early September. The patient decided not to pursue any further chemotherapy after that point. CT A/P/C 10/15 was NILESH In February 2022 patient presented to the office complaining of a gregoria vaginal discharge. Exam revealed anterior vaginal wall replaced by malignancy. 03/11/22 Biopsy performed in office. Final Diagnosis VAGINA, BIOPSY- VAGINAL MUCOSAL FRAGMENTS WITH INVOLVEMENT BY HIGH GRADE SEROUS CARCINOMA. 03/16/22 PET showed positive for carcinoma Pt receiving Trastuzumab, Carboplatin, Abraxane, last dose 07/29/22 Patient was then started on Herceptin maintenance. PET scan September 2023 showed no evidence of recurrent disease. Pt had left periaortic lymph node biopsy on 04/16/24, which was positive for metastatic carcinoma compatible with recurrence. Decision was made to pursue carbo/keytruda x 3 cycles, then keytruda maintenance. Underwent recent echo which shows good left ventricular function. She denies any cardiac symptoms related to the Herceptin. Denies any vaginal bleeding, abdominal pain, pelvic pain, adenopathy. Has good performance status. INTERVAL HISTORY: Pt doing well overall, did report feeling rough after cycle 1. Pt c/o severe flushing and burning sensation with decadron infusion, did not feel normal for a few days after. Fatigue was worst symptom. TSH slightly elevated on previous labs, pt to get TSH and free T4. Nausea was significant, but pt found that eating helped control it even better than the zofran did. No episodes of vomiting. She denies abdominal pain, bloating, constipation/diarrhea, issues with urination. No vaginal bleeding or pain. Past Medical History: Diagnosis Date Cancer (CMS/HCC) (HCC) 07/15/2020 Endometrial Hx antineoplastic chemo 04/04/2022 ended july 2022 Osteoarthritis Osteopenia Past Surgical History: Procedure Laterality Date FRACTURE SURGERY Left 1973 ankle HEMORRHOID SURGERY KNEE SURGERY Right 1969 and 1970 open OTHER SURGICAL HISTORY 07/16/2020 [facility] BSO LND; Dr. Denis Richey SINUS SURGERY 2006 Social History Socioeconomic History Marital status: Single Tobacco Use Smoking status: Never Smokeless tobacco: Never Vaping Use Vaping status: Never Used Substance and Sexual Activity Alcohol use: Not Currently Drug use: Never Sexual activity: Not Currently Partners: Male Social Drivers of Health Financial Resource Strain: Low Risk (01/20/2023) Overall Financial Resource Strain (CARDIA) Difficulty of Paying Living Expenses: Not hard at all Food Insecurity: No Food Insecurity (01/20/2023) Hunger Vital Sign Worried About Running Out of Food in the Last Year: Never true Ran Out of Food in the Last Year: Never true Transportation Needs: No Transportation Needs (01/20/2023) PRAPARE - Transportation Lack of Transportation (Medical): No Lack of Transportation (Non-Medical): No Current Outpatient Medications Medication Sig Dispense Refill Alpha-Lipoic Acid 600 MG capsule Take by mouth daily. B Kfnznwq-T-Ozvunoi (B-COMPLEX/VITAMIN C, W/ CA, PO) Take by mouth. ibuprofen 600 MG tablet Take 1 tablet (600 mg) by mouth every 6 hours. 60 tablet 0 multivitamin with minerals (Cerovite) 18-400 mg-mcg tablet tablet Take 1 tablet by mouth daily. ondansetron (Zofran) 8 MG tablet Take 1 tablet (8 mg) by mouth every 8 hours as needed for nausea or vomiting. 20 tablet 2 prochlorperazine (Compazine) 10 MG tablet Take 1 tablet (10 mg) by mouth every 6 hours as needed for nausea or vomiting. 30 tablet 2 saccharomyces boulardii (Florastor) 250 MG capsule Take 250 mg by mouth 2 times daily. No current facility-administered medications for this visit. Facility-Administered Medications Ordered in Other Visits Medication Dose Route Frequency Provider Last Rate Last Admin sodium chloride 0.9 % infusion 5-250 mL/hr IntraVENous Once PRN Denis Richey MD Review of Systems Constitutional: Positive for appetite change (increased) and fatigue. Negative for fever. HENT: Negative. Eyes: Negative. Respiratory: Negative for cough and shortness of breath. Cardiovascular: Negative for chest pain and leg swelling. Gastrointestinal: Positive for nausea. Negative for abdominal distention, abdominal pain, constipation, diarrhea and vomiting. Genitourinary: Negative for dysuria, pelvic pain and vaginal bleeding. Musculoskeletal: Negative for arthralgias and myalgias. Skin: Negative. Neurological: Negative for dizziness, weakness and numbness. Hematological: Negative for adenopathy. Psychiatric/Behavioral: Negative for suicidal ideas. Paclitaxel and Levofloxacin BP (!) 169/73 Pulse 77 Ht 1.6 m (5' 3) Wt 71.3 kg (157 lb 3.2 oz) BMI 27.85 kg/m Physical Exam Vitals and nursing note reviewed. Constitutional: General: She is not in acute distress. Appearance: Normal appearance. She is not ill-appearing. Eyes: General: No scleral icterus. Cardiovascular: Rate and Rhythm: Normal rate and regular rhythm. Pulmonary: Effort: Pulmonary effort is normal. No respiratory distress. Abdominal: General: Bowel sounds are normal. There is no distension. Palpations: Abdomen is soft. Genitourinary: Comments: deferred Musculoskeletal: General: Normal range of motion. Skin: General: Skin is warm and dry. Coloration: Skin is not pale. Findings: No rash. Neurological: General: No focal deficit present. Mental Status: She is alert and oriented to person, place, and time. Psychiatric: Mood and Affect: Mood normal. Behavior: Behavior normal. Assessment: Patient recurrent endometrial cancer here today for cycle 2 of carbo/keytruda. Plan: - Decrease dexamethasone to 8 mg, slow infusion rate - Labs look good, ok to proceed with treatment - Pt to call if significant nausea or dexamethasone reaction - Pt will get TSH/free T4 drawn documented in this encounter [facility] 05-23-2024 Telephone encount er Note We have been unable to reach your patient to schedule their testing. Test Name: Transthoracic echocardiogram (TTE) complete with contrast, bubble, strain, and 3D PRN 1st attempt//sent [employer], LLChart message 04/15/24 sms 2nd attempt -- LVM with CS details 05/23/24 CLP [facility] 05-23-2024 Miscellaneous Notes Formattin g of this note is different from the original. We have been unable to reach your patient to schedule their testing. Test Name: Transthoracic echocardiogram (TTE) complete with contrast, bubble, strain, and 3D PRN 1st attempt//sent [employer], LLChart message 04/15/24 sms 2nd attempt -- LVM with CS details 05/23/24 CLP documented in this encounter [facility] [place] 05-21-2024 Telephone encount er Note Called pt with elevated TSH, explained that we need another lab to determine whether her thyroid is working properly. She is feeling rough from chemo still, advised that it is ok to go get the blood work later this week or even early next week when she is feeling up to it. TSH and free T4 ordered, faxed to pt's lab. [facility] [place] 05-21-2024 Miscellaneous Notes Formattin g of this note might be different from the original. Called pt with elevated TSH, explained that we need another lab to determine whether her thyroid is working properly. She is feeling rough from chemo still, advised that it is ok to go get the blood work later this week or even early next week when she is feeling up to it. TSH and free T4 ordered, faxed to pt's lab. documented in this encounter [facility] [place] 05-17-2024 History of Presen t illness Narrative Patient arrived ambulatory for C1D1 Keytruda/Carboplatin infusion. Patient denies any symptoms on assessment. See toxicity assessment. Peripheral IV placed in R AC. CBC/CMP/Ca-125/ TSH collected on 05-15-24. POC reviewed and patient has no further questions at this time. Patient tolerated infusion with no noted complications. Peripheral IV removed intact and site benign. Patient verbalized understanding of discharge plan and follow-up care. Patient discharged home ambulatory. documented in this encounter [facility] [place] 05-16-2024 Telephone encount er Note LM for patient with her CA-125 results of 13.3 [facility] [place] 05-16-2024 Telephone encount er Note ----- Message from Denis Richey MD sent at 05/16/2024 8:38 AM EST ----- Please call with normal CA125 ----- Message ----- From: Linda Deluna Sent: 05/16/2024 8:02 AM EST To: Denis Richey MD [facility] [place] 05-16-2024 Miscellaneous Notes Formattin g of this note might be different from the original. LM for patient with her CA-125 results of 13.3 ----- Message from Denis Richey MD sent at 05/16/2024 8:38 AM EST ----- Please call with normal CA125 ----- Message ----- From: Linda Deluna Sent: 05/16/2024 8:02 AM EST To: Denis Richey MD documented in this encounter [facility] [place] 05-08-2024 History of Presen t illness Narrative Postop visit Patient underwent retroperitoneal resection of a solitary enlarged lymph node. Patient denies any problems from the surgery. LEFT PERIAORTIC LYMPH NODE, BIOPSY-1 LYMPH NODE, POSITIVE FOR METASTATIC CARCINOMA COMPATIBLE WITH PATIENT'S HISTORY OF HIGH-GRADE SEROUS CARCINOMA (03/27) - HRD STUDIES ARE PENDING AND WILL FOLLOW IN AN ADDENDUM On exam the abdominal incision is healing nicely P) we discussed options to include a chemotherapy break versus going back on carboplatinum and adding Keytruda for 3 courses and Keytruda maintenance. We also discussed radiation therapy. After discussing the pros and cons of all approaches she would like to go back on IV chemotherapy along with immunotherapy. Spoke to patient regarding tx with Keytruda every 3 weeks. She would like her tx in [place]. Reviewed side effects including but not limited to: rash, thyroid issues, pneumonitis, colitis, body aches, fatigue, allergic reactions ect. She is agreeable to receiving it with carboplatin every 3 weeks. She has had carboplatin before but reviewed side effects again. Consent obtained and will call patient with her schedule tomorrow. She agrees with the plan and verbalizes understanding. Emotional support provided. documented in this encounter [facility] 04-18-2024 Telephone encount er Note Pt called with path. Discussed RT, chemo or observation. [facility] 04-18-2024 Miscellaneous Notes Formattin g of this note might be different from the original. Pt called with path. Discussed RT, chemo or observation. 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 female , with history of stage III C1 endometrial cancer, admitted for routine post operative care. She underwent above procedure on 04/16/24. Patient peace catheter removed POD#1, and bandage removed POD#1. Patient met post operative milestones and was deemed stable for discharge 04/17/24. Hospital course normal, discharged home 04/17/24. Follow up 05/10/[address] Richey. Discharge instructions reviewed and questions answered. Course of patient: normal Discharge to: Home Wound Care: keep wound clean and dry Recommendations on Discharge: Medications: Medication List START taking these medications acetaminophen 500 MG tablet Commonly known as: Tylenol Extra Strength Take 2 tablets (1,000 mg) by mouth every 6 hours as needed for mild pain (1-3) for up to 10 days. docusate sodium 100 MG capsule Commonly known as: Colace Take 1 capsule (100 mg) by mouth 2 times daily. ibuprofen 600 MG tablet Take 1 tablet (600 mg) by mouth every 6 hours. oxyCODONE 5 MG immediate release tablet Commonly known as: Roxicodone Take 1 tablet (5 mg) by mouth every 6 hours as needed for severe pain (7-10) for up to 5 days. CONTINUE taking these medications Alpha-Lipoic Acid 600 MG capsule B-COMPLEX/VITAMIN C (W/ CA) PO saccharomyces boulardii 250 MG capsule Commonly known as: Florastor ASK your doctor about these medications multivitamin with minerals 18-400 mg-mcg tablet tablet Where to Get Your Medications These medications were sent to [facility] [address] [place] [address] Hours: Monday to Monday 10 am to 6 pm acetaminophen 500 MG tablet docusate sodium 100 MG capsule ibuprofen 600 MG tablet oxyCODONE 5 MG immediate release tablet Activity: pelvic rest for at least 6 weeks (until cleared by physician), no heavy lifting greater than 15lbs, no driving while on analgesics Diet: regular Follow up: 05/10/[address] Richey Condition on discharge: good and stable Discharge Date: 04/17/24 Comments: Home care, Follow-up care, restrictions reviewed. Denise Chappell DO 04/17/2024, 7:37 AM [facility] 04-17-2024 Hospital course Narrative Images from the original note were not included. 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 female , with history of stage III C1 endometrial cancer, admitted for routine post operative care. She underwent above procedure on 04/16/24. Patient peace catheter removed POD#1, and bandage removed POD#1. Patient met post operative milestones and was deemed stable for discharge 04/17/24. Hospital course normal, discharged home 04/17/24. Follow up 05/10/[address] Richey. Discharge instructions reviewed and questions answered. Course of patient: normal Discharge to: Home Wound Care: keep wound clean and dry Recommendations on Discharge: Medications: Medication List START taking these medications acetaminophen 500 MG tablet Commonly known as: Tylenol Extra Strength Take 2 tablets (1,000 mg) by mouth every 6 hours as needed for mild pain (1-3) for up to 10 days. docusate sodium 100 MG capsule Commonly known as: Colace Take 1 capsule (100 mg) by mouth 2 times daily. ibuprofen 600 MG tablet Take 1 tablet (600 mg) by mouth every 6 hours. oxyCODONE 5 MG immediate release tablet Commonly known as: Roxicodone Take 1 tablet (5 mg) by mouth every 6 hours as needed for severe pain (7-10) for up to 5 days. CONTINUE taking these medications Alpha-Lipoic Acid 600 MG capsule B-COMPLEX/VITAMIN C (W/ CA) PO saccharomyces boulardii 250 MG capsule Commonly known as: Florastor ASK your doctor about these medications multivitamin with minerals 18-400 mg-mcg tablet tablet Where to Get Your Medications These medications were sent to [facility] [address] [place] [address] Hours: Monday to Monday 10 am to 6 pm acetaminophen 500 MG tablet docusate sodium 100 MG capsule ibuprofen 600 MG tablet oxyCODONE 5 MG immediate release tablet Activity: pelvic rest for at least 6 weeks (until cleared by physician), no heavy lifting greater than 15lbs, no driving while on analgesics Diet: regular Follow up: 05/10/[address] Richey Condition on discharge: good and stable Discharge Date: 04/17/24 Comments: Home care, Follow-up care, restrictions reviewed. Denise Chappell DO 04/17/2024, 7:37 AM documented in this encounter [facility] 04-17-2024 History of Presen t illness Narrative Images from the original note were not included. 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 Progress Note PLEASE SECURE CHAT 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C CALL RES FOR QUESTIONS OR CONCERNS. Date: 04/17/2024 Time: 6:20 AM Cary Swenson 73 y.o. female, Admitted for postoperative care, POD #1 s/p exploratory laparotomy and removal of para-aortic lymph node Patient seen and examined. Overnight, patient states she did well and she has no complaints this morning. Pain is controlled. Patient is tolerating oral intake. She is urinating. She is ambulating, she did have some bleeding onto her dressing when she got up the first time, but no further bleeding since. She is passing flatus. She has not had a bowel movement. She denies Fever/Chills, Chest Pain, SOB, N/V. Vitals: Vitals: 04/16/24 1832 04/16/24 2109 04/17/24 0114 04/17/24 0510 BP: 150/80 158/87 131/71 122/66 BP Location: Right arm Right arm Right arm Right arm Patient Position: Sitting Lying Lying Lying Pulse: 85 85 81 75 Resp: 15 20 20 20 Temp: 36.9 C (98.4 F) 36.4 C (97.5 F) 36.4 C (97.5 F) 36.6 C (97.9 F) TempSrc: Temporal Temporal Temporal Temporal SpO2: 97% 97% 94% 94% Weight: Height: Intake/Output: Current Shift: I/O this shift: In: 550 [P.O.:550] Out: - Physical Exam: Gen: NAD, alert and cooperative HEENT: Normocephalic, atraumatic Resp: No increased work of breathing Abd: soft, NT/ND, no rebound, no guarding. Incisions: Left paramedial vertical incision, dressing in place with 3x3 cm area of dried blood on lower half of dressing that was outlined last evening and has not expanded past outline. Medications: Current Facility-Administered Medications Medication Dose Route Frequency Provider Last Rate Last Admin acetaminophen (Tylenol) tablet 1,000 mg 1,000 mg Oral q8h Jolynn Guzman, DO 1,000 mg at 04/16/242118 ketorolac (Toradol) injection 15 mg 15 mg IntraVENous q6h Jolynn Guzman, DO naloxone (Narcan) injection 0.4 mg 0.4 mg IntraVENous q5 min PRN eDnis Richey MD ondansetron ODT (Zofran-ODT) disintegrating tablet 4 mg 4 mg Oral q8h PRN Jolynn Guzman, DO Or ondansetron (Zofran) injection 4 mg 4 mg IntraVENous q6h PRN Jolynn Guzman, DO oxyCODONE (Roxicodone) immediate release tablet 5 mg 5 mg Oral q4h PRN Jolynn Guzman, DO Or oxyCODONE (Roxicodone) immediate release tablet 10 mg 10 mg Oral q4h PRN Jolynn Guzman, DO polyethylene glycol (PEG) 3350 (Miralax) packet 17 g 17 g Oral Daily PRN Jolynn Guzman, DO senna-docusate sodium (Senokot-S) 8.6-50 MG tablet 2 tablet 2 tablet Oral Daily PRN Jolynn Guzman, DO sodium chloride 0.9 % infusion 5-250 mL/hr IntraVENous PRN Jolynn Guzman, DO sodium chloride 0.9% (NS) flush 10 mL 10 mL IntraVENous 2 times per day Jolynn Guzman DO 10 mL at 04/16/24 2100 sodium chloride 0.9% (NS) flush 10 mL 10 mL IntraVENous PRN Jolynn Guzman DO Facility-Administered Medications Ordered in Other Encounters Medication Dose Route Frequency Provider Last Rate Last Admin sodium chloride 0.9 % infusion 5-250 mL/hr IntraVENous Once PRN Denis Richey MD Diagnostics: Diagnostic Results Labs: Admission on 04/16/2024 Component Date Value Ref Range Status Auto WBC 04/16/2024 4.5 3.6 - 10.7 10*3/uL Final RBC 04/16/2024 3.47 (L) 3.80 - 5.20 10*6/uL Final Hemoglobin 04/16/2024 11.4 (L) 11.7 - 16.0 g/dL Final Hematocrit 04/16/2024 33.6 (L) 35.0 - 47.0 % Final MCV 04/16/2024 96.8 77.0 - 99.0 fL Final MCH 04/16/2024 32.9 26.0 - 34.0 pg Final MCHC 04/16/2024 33.9 30.5 - 36.0 % Final RDW 04/16/2024 12.5 11.5 - 15.0 % Final Platelets 04/16/2024 230 140 - 440 10*3/uL Final MPV 04/16/2024 10.8 9.0 - 12.7 fL Final ABO Grouping 04/16/2024 A Final Antibody Screen 04/16/2024 NEG Final Rh Type 04/16/2024 NEG Final Assessment/Plan: Cary Swenson 73 y.o. female, admitted for postoperative care POD #1 s/p exploratory laparotomy, removal of para-aortic lymph node - Doing well, vitals stable - Peace removed following surgery, voiding spontaneously - Encourage ambulation and use of incentive spirometer - Pain controlled: yes - Labs/Imaging: None - DVT Proph:Ambulation, SCDs - Abx: None - Diet:General - ADAT - IVF: Heplocked - Disposition: Anticipate discharge home today pending discussion with attending Stage IIIC1 Endometrial Cancer - Diagnosed in June 2020 with robotic hysterectomy, BSO, PLND - Had severe reaction after first course of chemotherapy (Carboplatinum,Taxol, Herceptin) in September 2020 and declined further chemotherapy - Recurrence on anterior vaginal wall in February 2022 and PET was positive for carcinoma - Resumed chemotherapy with Trastuzumab, Carboplatin and Abraxane until July 2022, now on maintenance Herceptin - PET scan 02/2023 showed enhanced uptake in left para-aortic node which was removed 04/16/24 Further plan pending discussion with Dr. Richey PLEASE SECURE CHAT 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 ONC CALL RES FOR QUESTIONS OR CONCERNS. JOLYNN GUZMAN DO , PGY-IV 04/17/2024, 6:20 AM Cosigned by Denis Richey MD at 04/17/2024 9:09 AM EST Associated attestation - Denis Richey MD - 04/17/2024 9:09 AM EST Patient rounded with residents. Doing well. Abdomen soft and nondistended. Okay to discharge to home today documented in this encounter [facility] 04-16-2024 Note Formatting of this n ote might be different from the original. Sherron Thornton, updated with room number. Report called H5 RN [facility] 04-16-2024 Note Formatting of this n ote might be different from the original. Sherron Thornton, updated with room number. Report called H5 RN [facility] 04-16-2024 Miscellaneous Notes Formattin g of this note might be different from the original. Sherron Thornton, updated with room number. Report called H5 RN Sherron Thornton, called with update at this time Date of surgery 04/16/2024 preoperative diagnosis retroperitoneal mass Postoperative diagnosis secondary cancer of retroperitoneum, secondary cancer retroperitoneal node, periaortic node Procedure excision retroperitoneal mass less than 5 cm in diameter Surgeon Ka[place] anesthesia General Description of operation patient identified brought to the operating room and after ministration of general anesthesia Peace cath was placed she underwent abdominal prep and drape and timeout was performed. A left paramedian incision was made sharply using a knife to divide down to the skin Bovie cautery was used to divide the subcutaneous tissue down to the external oblique fascia which was then opened using Bovie cautery. The edge of the rectus abdominis muscle was identified, the edge of the posterior fascia was identified and this was sharply opened using Metzenbaum scissors. This then allowed the retroperitoneal space to be explored and the posterior sheath incision was extended. The retroperitoneal space was gently open, the large left periaortic lymph node was identified which measured less than 5 cm in size. It was very carefully dissected out the para-aortic safia bed using bipolar cautery as well as monopolar cautery and hemoclips. The area was irrigated it was noted to be dry no other adenopathy was noted. The mass was sent to pathology. The area was irrigated. The posterior sheath was then closed using a running #0 PDS followed by the anterior sheath being closed with a running 0 PDS. Subcutaneous tissue was reapproximated using interrupted 0 PDS followed by running 3-0 Monocryl subcuticular on the skin with Steri-Strips. Blood loss was minimal she was taken to the cover room in stable condition by anesthesia Date: 04/16/2024 Location: [facility] OR Name: Cary Swenson, : 1950, Diagnosis Pre-op Diagnosis * Malignant neoplasm of endometrium (HCC) [C54.1] Post-op Diagnosis * Malignant neoplasm of endometrium (HCC) [C54.1] Procedures Surgeons * Denis Richey - Primary Procedure Summary Anesthesia: General ASA: III Estimated Blood Loss: Minimal Drains: [REMOVED] Urethral Catheter Straight-tip (Removed) Specimens ID Source Type Tests Collected By Collected At Frozen? Priority Lab ID 1 Lymph Node Tissue TISSUE EXAM Denis Richey MD 04/16/24 1351 No Routine Description: Left para aortic node Staff: National Account Manager: Elise Lopze RN Scrub Person: Gracia Mcrae RN [place] to Circ: Key Trinh RN Findings: Retroperitoneal mass, secondary malignancy of periaortic node Complications: None; patient tolerated the procedure well. Specimens Collected: Order Name Source Comment Collection Info Order Time POTASSIUM WITH MG REFLEX For patients on dialysis to draw potassium day of surgery 04/16/2024 12:14 PM PROTHROMBIN TIME If patient on coumadin within 4 days prior. 04/16/2024 12:14 PM HCG QUALITATIVE URINE Urine, Clean Catch Discontinue this order if: 1. patient is older than 55 years old 2. has had a prior hysterectomy 3. today's surgery is for treatment of known or suspected ectopic or loss. 4. patient has a known intrauterine but this is a needed surgery. 04/16/2024 12:14 PM CBC (HEMOGRAM) Blood, Venous Collected By: Joy Conteh RN 04/16/2024 12:14 PM BLOOD TYPE AND SCREEN GEL Blood, Venous HOLD. Specimen is valid for 3 days - nurse to verify valid specimen Collected By: Joy Conteh RN 04/16/2024 12:14 PM TISSUE EXAM Lymph Node Hx pap serous endo cancer. Please send for HRD Collected By: Denis Richey MD 04/16/2024 1:52 PM Wound Class: Class I: Clean Blood Products: None Prophylactic Antibiotics: Pre-operative antibiotics were not given because antibiotics are not indicated for this procedure. documented in this encounter [facility] 04-16-2024 Note Formatting of this n ote might be different from the original. Sherron Thornton, called with update at this time [facility] 04-16-2024 Note Formatting of this n ote might be different from the original. Sherron Thornton, called with update at this time [facility] 04-16-2024 Note Patient: Cary bedolla Procedure Summary Date: 04/16/24 Room / Location: [address] Operating Room Anesthesia Start: 1316 Anesthesia Stop: 1426 Procedure: RETROPERITONEUM LYMPH NODE BIOPSY (Abdomen) Diagnosis: Malignant neoplasm of endometrium (HCC) Surgeons: Denis Richey MD Responsible Provider: Tj Hernandez MD Anesthesia Type: general, regional ASA Status: 3 Anesthesia Type: general, regional Vitals Value Taken Time BP 178/68 04/16/24 1424 Temp 96.3 04/16/24 1429 Pulse 79 04/16/24 1429 Resp 12 04/16/24 1429 SpO2 99 % 04/16/24 142 Vitals shown include unfiled device data. Anesthesia Post Evaluation Patient location during evaluation: PACU Patient participation: complete - patient participated Level of consciousness: sleepy but conscious and responsive to verbal stimuli Pain management: satisfactory to patient Airway patency: patent Dental Injury: no Cardiovascular status: acceptable, blood pressure returned to baseline and hemodynamically stable Respiratory status: acceptable, spontaneous ventilation, room air and nonlabored ventilation Hydration status: euvolemic Nausea/Vomiting: controlled No notable events documented. Patient can be discharged once all PACU criteria has been met. [facility] 04-16-2024 Note Patient: Cary bedolla Procedure Summary Date: 04/16/24 Room / Location: [address] Operating Room Anesthesia Start: 1316 Anesthesia Stop: 1426 Procedure: RETROPERITONEUM LYMPH NODE BIOPSY (Abdomen) Diagnosis: Malignant neoplasm of endometrium (HCC) Surgeons: Denis Richey MD Responsible Provider: Tj Hernandez MD Anesthesia Type: general, regional ASA Status: 3 Anesthesia Type: general, regional Vitals Value Taken Time BP 178/68 04/16/24 1424 Temp 96.3 04/16/24 1429 Pulse 82 04/16/24 1428 Resp 12 04/16/24 1429 SpO2 97 % 04/16/24 1428 Vitals shown include unfiled device data. Anesthesia Post Evaluation Patient location during evaluation: PACU Patient participation: complete - patient participated Level of consciousness: sleepy but conscious and responsive to verbal stimuli Pain management: satisfactory to patient Multimodal analgesia pain management approach Airway patency: patent Two or more strategies used to mitigate risk of obstructive sleep apnea Cardiovascular status: acceptable and hemodynamically stable Respiratory status: acceptable, room air, nonlabored ventilation and spontaneous ventilation Hydration status: acceptable No notable events documented. MIPS #430 PONV Patient received an inhalational anesthetic (4554F) Patient exhibits three or more risk factors for PONV (4556F) Patient received at leaset 2 prophylactic Rx PONV anti-emtic agents of different classes preop and/or intraop (G9775) MIPS # 424 Perioperative Temperature Management Anesthesia time was 60 minutes or longer (4255F) Anesthesai administered was General (inhalational or TIVA) or Neuraxial block (X0424) At least one body temperature greater than 95.8F/35.5C achieved within the 30 mins immediately prior to or the 15 minutes immediately following anesthesia end time (G9771) MIPS #477 Multimodal Pain Management Not emergent case Patient was administered multimodal pain management (two or more drugs and/or interventions excluding systemic opioids) in the periopeartive period occurring at some time between 6 hours prior to anesthesia start time until discharged from PACU (G2148) MIPS #404 Anesthesiology Smoking Abstinence The patient is not a current smoker (e.g. cigarette, cigar, pipe, e-cigarette/vaping/marijuana) If no stop here (XX404) I completed my handoff to the receiving clinician during which we: 1. Identified the patient 2. Identified the responsible provider 3. Reviewed the pertinent medical history 4. Discussed the surgical course 5. Reviewed intra-op anesthesia management and issues during anesthesia 6. Set expectations for post-procedure period 7. Allowed opportunity for questions and acknowledgement of understanding. [facility] 04-16-2024 Note Airway Date/Time: 04/16/2024 1:20 PM Urgency: scheduled Airway not difficult General Information and Staff Patient location during procedure: Procedural Resident/KILN DOOR REPAIRER: Catina Anguiano APRN - KILN DOOR REPAIRER Performed: KILN DOOR REPAIRER Indications and Patient Condition Indications for airway management: anesthesia and airway protection Sedation level: Asleep Preoxygenated: yes Patient position: sniffing Mask difficulty assessment: 1 - vent by mask Final Airway Details Final airway type: endotracheal airway Successful airway: ETT Successful intubation technique: direct laryngoscopy Facilitating devices/methods: anterior pressure/BURP Blade: Ernesto Blade size: #3 ETT size (mm): 7.0 Cormack-Lehane Classification: grade IIa - partial view of glottis Placement verified by: capnometry Number of attempts at approach: 1 [facility] 04-16-2024 Note Peripheral Block Time Out: 04/16/2024 1:20 PM Patient location during procedure: Procedural Start time: 04/16/2024 1:20 PM End time: 04/16/2024 1:25 PM Reason for block: at surgeon's request and post-op pain management Staffing Performed: KILN DOOR REPAIRER Resident/KILN DOOR REPAIRER: Gabriela Thibodeaux APRN - KILN DOOR REPAIRER Preanesthetic Checklist Completed: patient identified, IV checked, site marked, risks and benefits discussed, surgical consent, monitors and equipment checked, pre-op evaluation and timeout performed Region: Truncal Primary: TAP Secondary: Upper rectus (upper and lower rectus 30 ml divided evenly) Peripheral Block Patient position: supine Prep: DuraPrep Patient monitoring: heart rate, monitoring engineer, continuous pulse ox and continuous capnometry O2: ETT/LMA Laterality: left Injection technique: single-shot Guidance: ultrasound guided -image retained in chart, tip of the needle identified by ultraound during injection. Needle Needle: 21G X 110 mm Additional Notes Mixture of 40 ml TAP solution and 20 ml 1.3% Exparel. 04/16/2024 1:20 PM Assessment Injection assessment: negative aspiration for heme, no paresthesia on injection and incremental injection Heart rate change: no Slow fractionated injection: yes Required Documentation: Relevant anatomy identified (Nerves, Vessels, Muscles), Negative for blood on aspiration, Local anesthetic injected incrementally with intermittent aspiration every 5 mL, Normal resistance with injection, No EKG changes noted, No symptoms of toxicity, Local anesthetic spread visualized around nerves or plane. and Local anesthetic injected without difficultyMedications [id number] phrine (TAP) syringe - Injection 40 mL - 04/16/2024 1:20:00 PM bupivacaine liposome (Exparel) 1.3 % injection - Injection 20 mL - 04/16/2024 1:20:00 PM [facility] 04-16-2024 Note Formatting of this n ote might be different from the original. Date of surgery 04/16/2024 preoperative diagnosis retroperitoneal mass Postoperative diagnosis secondary cancer of retroperitoneum, secondary cancer retroperitoneal node, periaortic node Procedure excision retroperitoneal mass less than 5 cm in diameter Surgeon [place] anesthesia General Description of operation patient identified brought to the operating room and after ministration of general anesthesia Peace cath was placed she underwent abdominal prep and drape and timeout was performed. A left paramedian incision was made sharply using a knife to divide down to the skin Bovie cautery was used to divide the subcutaneous tissue down to the external oblique fascia which was then opened using Bovie cautery. The edge of the rectus abdominis muscle was identified, the edge of the posterior fascia was identified and this was sharply opened using Metzenbaum scissors. This then allowed the retroperitoneal space to be explored and the posterior sheath incision was extended. The retroperitoneal space was gently open, the large left periaortic lymph node was identified which measured less than 5 cm in size. It was very carefully dissected out the para-aortic safia bed using bipolar cautery as well as monopolar cautery and hemoclips. The area was irrigated it was noted to be dry no other adenopathy was noted. The mass was sent to pathology. The area was irrigated. The posterior sheath was then closed using a running #0 PDS followed by the anterior sheath being closed with a running 0 PDS. Subcutaneous tissue was reapproximated using interrupted 0 PDS followed by running 3-0 Monocryl subcuticular on the skin with Steri-Strips. Blood loss was minimal she was taken to the cover room in stable condition by anesthesia [facility] 04-16-2024 Note Formatting of this n ote is different from the original. Date: 04/16/2024 Location: [facility] OR Name: Cary Swenson, : 1950, Diagnosis Pre-op Diagnosis * Malignant neoplasm of endometrium (HCC) [C54.1] Post-op Diagnosis * Malignant neoplasm of endometrium (HCC) [C54.1] Procedures Surgeons * Denis Richey - Primary Procedure Summary Anesthesia: General ASA: III Estimated Blood Loss: Minimal Drains: [REMOVED] Urethral Catheter Straight-tip (Removed) Specimens ID Source Type Tests Collected By Collected At Frozen? Priority Lab ID 1 Lymph Node Tissue TISSUE EXAM Denis Richey MD 04/16/24 1351 No Routine Description: Left para aortic node Staff: National Account Manager: Elise Lopez RN Scrub Person: Gracia Mcrae RN [place] to Circ: Key Trinh RN Findings: Retroperitoneal mass, secondary malignancy of periaortic node Complications: None; patient tolerated the procedure well. Specimens Collected: Order Name Source Comment Collection Info Order Time POTASSIUM WITH MG REFLEX For patients on dialysis to draw potassium day of surgery 04/16/2024 12:14 PM PROTHROMBIN TIME If patient on coumadin within 4 days prior. 04/16/2024 12:14 PM HCG QUALITATIVE URINE Urine, Clean Catch Discontinue this order if: 1. patient is older than 55 years old 2. has had a prior hysterectomy 3. today's surgery is for treatment of known or suspected ectopic or loss. 4. patient has a known intrauterine but this is a needed surgery. 04/16/2024 12:14 PM CBC (HEMOGRAM) Blood, Venous Collected By: Joy Conteh RN 04/16/2024 12:14 PM BLOOD TYPE AND SCREEN GEL Blood, Venous HOLD. Specimen is valid for 3 days - nurse to verify valid specimen Collected By: Joy Conteh RN 04/16/2024 12:14 PM TISSUE EXAM Lymph Node Hx pap serous endo cancer. Please send for HRD Collected By: Denis Richey MD 04/16/2024 1:52 PM Wound Class: Class I: Clean Blood Products: None Prophylactic Antibiotics: Pre-operative antibiotics were not given because antibiotics are not indicated for this procedure. [facility] 04-16-2024 Note Formatting of this n ote might be different from the original. Date of surgery 04/16/2024 preoperative diagnosis retroperitoneal mass Postoperative diagnosis secondary cancer of retroperitoneum, secondary cancer retroperitoneal node, periaortic node Procedure excision retroperitoneal mass less than 5 cm in diameter Surgeon [place] anesthesia General Description of operation patient identified brought to the operating room and after ministration of general anesthesia Peace cath was placed she underwent abdominal prep and drape and timeout was performed. A left paramedian incision was made sharply using a knife to divide down to the skin Bovie cautery was used to divide the subcutaneous tissue down to the external oblique fascia which was then opened using Bovie cautery. The edge of the rectus abdominis muscle was identified, the edge of the posterior fascia was identified and this was sharply opened using Metzenbaum scissors. This then allowed the retroperitoneal space to be explored and the posterior sheath incision was extended. The retroperitoneal space was gently open, the large left periaortic lymph node was identified which measured less than 5 cm in size. It was very carefully dissected out the para-aortic safia bed using bipolar cautery as well as monopolar cautery and hemoclips. The area was irrigated it was noted to be dry no other adenopathy was noted. The mass was sent to pathology. The area was irrigated. The posterior sheath was then closed using a running #0 PDS followed by the anterior sheath being closed with a running 0 PDS. Subcutaneous tissue was reapproximated using interrupted 0 PDS followed by running 3-0 Monocryl subcuticular on the skin with Steri-Strips. Blood loss was minimal she was taken to the cover room in stable condition by anesthesia [facility] 04-16-2024 Note Formatting of this n ote is different from the original. Date: 04/16/2024 Location: [facility] OR Name: Cary Swenson, : 1950, Diagnosis Pre-op Diagnosis * Malignant neoplasm of endometrium (HCC) [C54.1] Post-op Diagnosis * Malignant neoplasm of endometrium (HCC) [C54.1] Procedures Surgeons * Denis Richey - Primary Procedure Summary Anesthesia: General ASA: III Estimated Blood Loss: Minimal Drains: [REMOVED] Urethral Catheter Straight-tip (Removed) Specimens ID Source Type Tests Collected By Collected At Frozen? Priority Lab ID 1 Lymph Node Tissue TISSUE EXAM Denis Richey MD 04/16/24 1351 No Routine Description: Left para aortic node Staff: National Account Manager: Elise Lopez RN Scrub Person: Gracia Mcrae RN [place] to Circ: Key Trinh RN Findings: Retroperitoneal mass, secondary malignancy of periaortic node Complications: None; patient tolerated the procedure well. Specimens Collected: Order Name Source Comment Collection Info Order Time POTASSIUM WITH MG REFLEX For patients on dialysis to draw potassium day of surgery 04/16/2024 12:14 PM PROTHROMBIN TIME If patient on coumadin within 4 days prior. 04/16/2024 12:14 PM HCG QUALITATIVE URINE Urine, Clean Catch Discontinue this order if: 1. patient is older than 55 years old 2. has had a prior hysterectomy 3. today's surgery is for treatment of known or suspected ectopic or loss. 4. patient has a known intrauterine but this is a needed surgery. 04/16/2024 12:14 PM CBC (HEMOGRAM) Blood, Venous Collected By: Joy Conteh RN 04/16/2024 12:14 PM BLOOD TYPE AND SCREEN GEL Blood, Venous HOLD. Specimen is valid for 3 days - nurse to verify valid specimen Collected By: Joy Conteh RN 04/16/2024 12:14 PM TISSUE EXAM Lymph Node Hx pap serous endo cancer. Please send for HRD Collected By: Denis Richey MD 04/16/2024 1:52 PM Wound Class: Class I: Clean Blood Products: None Prophylactic Antibiotics: Pre-operative antibiotics were not given because antibiotics are not indicated for this procedure. [facility] 04-16-2024 Attending History and physical note H&P reviewed. The patient was examined and there are no changes to the H&P. 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 , was diagnosed with a stage III C1 endometrial cancer in June 2020. She was treated with robotic hysterectomy BSO sentinel lymph node sampling followed by chemotherapy with carboplatinum and Taxol and Herceptin in [place]. However the patient developed a severe reaction after the first course. This was in early September. The patient decided not to pursue any further chemotherapy after that point. CT A/P/C 10/15 was NILESH In February 2022 patient presented to the office complaining of a gregoria vaginal discharge. Exam revealed anterior vaginal wall replaced by malignancy. 03/11/22 Biopsy performed in office. Final Diagnosis VAGINA, BIOPSY- VAGINAL MUCOSAL FRAGMENTS WITH INVOLVEMENT BY HIGH GRADE SEROUS CARCINOMA. 03/16/22 PET showed positive for carcinoma Pt receiving Trastuzumab, Carboplatin, Abraxane, last dose 07/29/22 Patient was then started on Herceptin maintenance. PET scan September 2023 showed no evidence of recurrent disease. Underwent recent echo which shows good left ventricular function. She denies any cardiac symptoms related to the Herceptin. Denies any vaginal bleeding, abdominal pain, pelvic pain, adenopathy. Has good performance status and is here today with her daughter. Past Medical History: Diagnosis Date Cancer (CMS/HCC) (HCC) 07/15/2020 Endometrial Hx antineoplastic chemo 04/04/2022 ended july 2022 Osteoarthritis Osteopenia Past Surgical History: Procedure Laterality Date FRACTURE SURGERY Left 1973 ankle HEMORRHOID SURGERY HYSTERECTOMY 06/2020 KNEE SURGERY Right 1969 and 1971 OOPHORECTOMY 06/2020 OTHER SURGICAL HISTORY 07/16/2020 [facility] BSO LND; Dr. Denis Richey SINUS SURGERY 2006 Social History Socioeconomic History Marital status: Single Tobacco Use Smoking status: Never Smokeless tobacco: Never Vaping Use Vaping status: Never Used Substance and Sexual Activity Alcohol use: Not Currently Drug use: Never Sexual activity: Not Currently Partners: Male Social Drivers of Health Financial Resource Strain: Low Risk (01/20/2023) Overall Financial Resource Strain (CARDIA) Difficulty of Paying Living Expenses: Not hard at all Food Insecurity: No Food Insecurity (01/20/2023) Hunger Vital Sign Worried About Running Out of Food in the Last Year: Never true Ran Out of Food in the Last Year: Never true Transportation Needs: No Transportation Needs (01/20/2023) PRAPARE - Transportation Lack of Transportation (Medical): No Lack of Transportation (Non-Medical): No Current Outpatient Medications Medication Sig Dispense Refill Alpha-Lipoic Acid 600 MG capsule Take by mouth. B Xiteeml-T-Yowxwbr (B-COMPLEX/VITAMIN C, W/ CA, PO) Take by mouth. multivitamin with minerals (Cerovite) 18-400 mg-mcg tablet tablet Take 1 tablet by mouth daily. No current facility-administered medications for this visit. Facility-Administered Medications Ordered in Other Visits Medication Dose Route Frequency Provider Last Rate Last Admin sodium chloride 0.9 % infusion 5-250 mL/hr IntraVENous Once PRN Denis Richey MD Review of Systems Gastrointestinal: Negative for abdominal distention and abdominal pain. Genitourinary: Negative for pelvic pain and vaginal bleeding. Hematological: Negative for adenopathy. Paclitaxel and Levofloxacin BP (!) 197/82 Pulse 76 Ht 1.6 m (5' 3) Wt 68 kg (150 lb) BMI 26.57 kg/m Physical Exam Vitals and nursing note reviewed. Constitutional: Appearance: Normal appearance. Neurological: Mental Status: She is alert. Psychiatric: Mood and Affect: Mood normal. Behavior: Behavior normal. Assessment: Patient recurrent endometrial cancer currently doing well on maintenance Herceptin with no signs or symptoms of recurrent disease. Plan: Continue Herceptin, PET scan is scheduled for next month. Continue Herceptin until disease recurrence or toxicity. [facility] 04-16-2024 Note H&P reviewed. The rodrigo contreras was examined and there are no changes to the H&P. [facility] 04-16-2024 History and physical note H&P reviewed. The patient was examined and there are no changes to the H&P. 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 , was diagnosed with a stage III C1 endometrial cancer in June 2020. She was treated with robotic hysterectomy BSO sentinel lymph node sampling followed by chemotherapy with carboplatinum and Taxol and Herceptin in [place]. However the patient developed a severe reaction after the first course. This was in early September. The patient decided not to pursue any further chemotherapy after that point. CT A/P/C 10/15 was NILESH In February 2022 patient presented to the office complaining of a gregoria vaginal discharge. Exam revealed anterior vaginal wall replaced by malignancy. 03/11/22 Biopsy performed in office. Final Diagnosis VAGINA, BIOPSY- VAGINAL MUCOSAL FRAGMENTS WITH INVOLVEMENT BY HIGH GRADE SEROUS CARCINOMA. 03/16/22 PET showed positive for carcinoma Pt receiving Trastuzumab, Carboplatin, Abraxane, last dose 07/29/22 Patient was then started on Herceptin maintenance. PET scan September 2023 showed no evidence of recurrent disease. Underwent recent echo which shows good left ventricular function. She denies any cardiac symptoms related to the Herceptin. Denies any vaginal bleeding, abdominal pain, pelvic pain, adenopathy. Has good performance status and is here today with her daughter. Past Medical History: Diagnosis Date Cancer (CMS/HCC) (HCC) 07/15/2020 Endometrial Hx antineoplastic chemo 04/04/2022 ended july 2022 Osteoarthritis Osteopenia Past Surgical History: Procedure Laterality Date FRACTURE SURGERY Left 1973 ankle HEMORRHOID SURGERY HYSTERECTOMY 06/2020 KNEE SURGERY Right 1969 and 1970 OOPHORECTOMY 06/2020 OTHER SURGICAL HISTORY 07/16/2020 [facility] BSO LND; Dr. Denis Richey SINUS SURGERY 2007 Social History Socioeconomic History Marital status: Single Tobacco Use Smoking status: Never Smokeless tobacco: Never Vaping Use Vaping status: Never Used Substance and Sexual Activity Alcohol use: Not Currently Drug use: Never Sexual activity: Not Currently Partners: Male Social Drivers of Health Financial Resource Strain: Low Risk (01/20/2023) Overall Financial Resource Strain (CARDIA) Difficulty of Paying Living Expenses: Not hard at all Food Insecurity: No Food Insecurity (01/20/2023) Hunger Vital Sign Worried About Running Out of Food in the Last Year: Never true Ran Out of Food in the Last Year: Never true Transportation Needs: No Transportation Needs (01/20/2023) PRAPARE - Transportation Lack of Transportation (Medical): No Lack of Transportation (Non-Medical): No Current Outpatient Medications Medication Sig Dispense Refill Alpha-Lipoic Acid 600 MG capsule Take by mouth. B Zcaqoxa-D-Kghlqjq (B-COMPLEX/VITAMIN C, W/ CA, PO) Take by mouth. multivitamin with minerals (Cerovite) 18-400 mg-mcg tablet tablet Take 1 tablet by mouth daily. No current facility-administered medications for this visit. Facility-Administered Medications Ordered in Other Visits Medication Dose Route Frequency Provider Last Rate Last Admin sodium chloride 0.9 % infusion 5-250 mL/hr IntraVENous Once PRN Denis Richey MD Review of Systems Gastrointestinal: Negative for abdominal distention and abdominal pain. Genitourinary: Negative for pelvic pain and vaginal bleeding. Hematological: Negative for adenopathy. Paclitaxel and Levofloxacin BP (!) 197/82 Pulse 76 Ht 1.6 m (5' 3) Wt 68 kg (150 lb) BMI 26.57 kg/m Physical Exam Vitals and nursing note reviewed. Constitutional: Appearance: Normal appearance. Neurological: Mental Status: She is alert. Psychiatric: Mood and Affect: Mood normal. Behavior: Behavior normal. Assessment: Patient recurrent endometrial cancer currently doing well on maintenance Herceptin with no signs or symptoms of recurrent disease. Plan: Continue Herceptin, PET scan is scheduled for next month. Continue Herceptin until disease recurrence or toxicity. documented in this encounter [facility] 04-12-2024 Telephone encount er Note Pt called will change to retroperitoneal approach [facility] 04-12-2024 Miscellaneous Notes Formattin g of this note might be different from the original. Pt called will change to retroperitoneal approach documented in this encounter [facility] 04-12-2024 Note Patient: Cary bedolla Procedure Information Date/Time: 04/15/24 1030 Procedure: ROBOTIC PARA-AORTIC LYMPH NODE DISSECTION, LEFT (Left: Abdomen) - 1 HOUR GENERAL TAP BLOCK Location: [facility] OR [address] [place] [address] Operating Room Surgeons: Denis Richey MD Relevant Problems Other (+) Endometrial cancer (CMS/HCC) (HCC) (+) Uterine cancer (CMS/HCC) (HCC) Past Medical History: Past Medical History: 07/15/2020: Cancer (CMS/HCC) (HCC) Comment: Endometrial 04/04/2022: Hx antineoplastic chemo Comment: ended july 2022 No date: Osteoarthritis No date: Osteopenia Past Surgical History: Past Surgical History: 1974: FRACTURE SURGERY; Left Comment: ankle No date: HEMORRHOID SURGERY 06/2020: HYSTERECTOMY 1970 and 1971: KNEE SURGERY; Right 06/2020: OOPHORECTOMY 07/16/2020: OTHER SURGICAL HISTORY Comment: [facility] BSO LND; Dr. Denis Richey 2007: SINUS SURGERY Social History: TOBACCO: reports that she has never smoked. She has never used smokeless tobacco. ETOH: reports that she does not currently use alcohol. Social History Substance and Sexual Activity Drug Use Never Family History: Family History Problem Relation Name Age of Onset High Blood Pressure Mother Shabana Arthritis Mother Shabana Skin cancer Mother Shabana 60 Autoimmune disease Mother Shabana Hearing loss Mother Shabana Hypertension Mother Shabana Lung cancer Father Bonifacio 66 Thyroid disease Sister Elizabeth Depression Sister Elizabeth High Blood Pressure Sister Elizabeth Skin cancer Sister Elizabeth 60 Autoimmune disease Sister Elizabeth Hypertension Sister [place] Hearing loss Daughter Chelly Suicide Attempts Son Gabe Osteoporosis Maternal Grandmother Uterine cancer Paternal Grandmother Joellen 62 Lung cancer Paternal Grandfather Pimentel 56 Lung cancer Mother's Sister Corie 75 Breast cancer Cousin 60 on dads side Breast cancer Cousin 60 on dads side Screening: Hysterectomy Clinical information reviewed: Physical Exam Airway Mallampati: II TM distance: <3 FB Neck ROM: full Mouth Open: normal Cardiovascular Dental dentition normal Pulmonary Abdominal Anesthesia Plan patient is NPO appropriate Any family history or previous problems with anesthesia no ASA 3 general and regional Any family history or previous problems with anesthesia no(Experal?) The patient is not a current smoker. Anesthetic plan and risks discussed with patient. ERAS Type 04/13/24 Chart reviewed. DOS orders for anesthesia placed according to ERAS protocol. General eras No celebrex, paving bed maker case Mindy Burkett APRN - RASHAD MADI Screening Labs: Lab Results Component Value Date WBC 4.3 03/29/2024 HGB 11.8 03/29/2024 HCT 36.4 03/29/2024 MCV 98.4 03/29/2024 PLT 223 03/29/2024 Lab Results Component Value Date NA 138 03/29/2024 K 3.7 03/29/2024 CL 103 03/29/2024 CO2 28 03/29/2024 BUN 14 03/29/2024 CREATININE 0.97 03/29/2024 GLUCOSE 91 03/29/2024 CALCIUM 9.2 03/29/2024 PROT 7.3 03/29/2024 ALKPHOS 101 03/29/2024 AST 31 03/29/2024 ALT 27 03/29/2024 EGFR 62.6 03/29/2024 No echocardiogram results found for the past 14 days No results found for this or any previous visit. Equipment Requests: Additional Equipment Requests Block Team [facility] 04-10-2024 Telephone encount er Note PAT: 04.12.2024 at 9 am by phone SX: 04.15.2024 at 11 am arrival at 9 am Post op 05.10.2024 at 1:30 pm Instructions given. [facility] 04-10-2024 Miscellaneous Notes Formattin g of this note might be different from the original. PAT: 04.12.2024 at 9 am by phone SX: 04.15.2024 at 11 am arrival at 9 am Post op 05.10.2024 at 1:30 pm Instructions given. documented in this encounter [facility] [place] 04-10-2024 Telephone encount er Note Patient called, discussed PET scan. Will plan on robotic removal of the left periaortic node. [facility] [place] 04-10-2024 Miscellaneous Notes Formattin g of this note might be different from the original. Patient called, discussed PET scan. Will plan on robotic removal of the left periaortic node. Patient mentioned that she is returning a call from provider and would like a callback, please contact when able, thank you Pt called with PET. To stop herceptin. Will request films. Discussed review of films then possible surgery documented in this encounter [facility] 04-10-2024 Telephone encount er Note Patient mentioned that she is returning a call from provider and would like a callback, please contact when able, thank you [facility] 04-05-2024 Telephone encount er Note Pt called with PET. To stop herceptin. Will request films. Discussed review of films then possible surgery [facility] 04-05-2024 Miscellaneous Notes Formattin g of this note might be different from the original. Pt called with PET. To stop herceptin. Will request films. Discussed review of films then possible surgery documented in this encounter [facility] 03-29-2024 History of Presen t illness Narrative Pt arrived for cycle 32 Trazimera. PIV placed. CBC/CMP/CA125 drawn from PIV and sent to [facility]. Pt reports feeling well, no concerns at this time. 1618: Ordered treatment completed. Patient discharged without any issues. Patient has a copy of next infusion appointment and verbalizes understanding. All questions answered. 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 , was diagnosed with a stage III C1 endometrial cancer in June 2020. She was treated with robotic hysterectomy BSO sentinel lymph node sampling followed by chemotherapy with carboplatinum and Taxol and Herceptin in [place]. However the patient developed a severe reaction after the first course. This was in early September. The patient decided not to pursue any further chemotherapy after that point. CT A/P/C 10/15 was NILESH In February 2022 patient presented to the office complaining of a gregroia vaginal discharge. Exam revealed anterior vaginal wall replaced by malignancy. 03/11/22 Biopsy performed in office. Final Diagnosis VAGINA, BIOPSY- VAGINAL MUCOSAL FRAGMENTS WITH INVOLVEMENT BY HIGH GRADE SEROUS CARCINOMA. 03/16/22 PET showed positive for carcinoma Pt receiving Trastuzumab, Carboplatin, Abraxane, last dose 07/29/22 Patient was then started on Herceptin maintenance. PET scan September 2023 showed no evidence of recurrent disease. Underwent recent echo which shows good left ventricular function. She denies any cardiac symptoms related to the Herceptin. Denies any vaginal bleeding, abdominal pain, pelvic pain, adenopathy. Has good performance status and is here today with her daughter. Past Medical History: Diagnosis Date Cancer (CMS/HCC) (HCC) 07/15/2020 Endometrial Hx antineoplastic chemo 04/04/2022 ended july 2022 Osteoarthritis Osteopenia Past Surgical History: Procedure Laterality Date FRACTURE SURGERY Left 1973 ankle HEMORRHOID SURGERY HYSTERECTOMY 06/2020 KNEE SURGERY Right 1969 and 1970 OOPHORECTOMY 06/2020 OTHER SURGICAL HISTORY 07/16/2020 [facility] BSO LND; Dr. Denis Richey SINUS SURGERY 2006 Social History Socioeconomic History Marital status: Single Tobacco Use Smoking status: Never Smokeless tobacco: Never Vaping Use Vaping status: Never Used Substance and Sexual Activity Alcohol use: Not Currently Drug use: Never Sexual activity: Not Currently Partners: Male Social Drivers of Health Financial Resource Strain: Low Risk (01/20/2023) Overall Financial Resource Strain (CARDIA) Difficulty of Paying Living Expenses: Not hard at all Food Insecurity: No Food Insecurity (01/20/2023) Hunger Vital Sign Worried About Running Out of Food in the Last Year: Never true Ran Out of Food in the Last Year: Never true Transportation Needs: No Transportation Needs (01/20/2023) PRAPARE - Transportation Lack of Transportation (Medical): No Lack of Transportation (Non-Medical): No Current Outpatient Medications Medication Sig Dispense Refill Alpha-Lipoic Acid 600 MG capsule Take by mouth. B Zljcmdy-Z-Irvutgg (B-COMPLEX/VITAMIN C, W/ CA, PO) Take by mouth. multivitamin with minerals (Cerovite) 18-400 mg-mcg tablet tablet Take 1 tablet by mouth daily. No current facility-administered medications for this visit. Facility-Administered Medications Ordered in Other Visits Medication Dose Route Frequency Provider Last Rate Last Admin sodium chloride 0.9 % infusion 5-250 mL/hr IntraVENous Once PRN Denis Richey MD Review of Systems Gastrointestinal: Negative for abdominal distention and abdominal pain. Genitourinary: Negative for pelvic pain and vaginal bleeding. Hematological: Negative for adenopathy. Paclitaxel and Levofloxacin BP (!) 197/82 Pulse 76 Ht 1.6 m (5' 3) Wt 68 kg (150 lb) BMI 26.57 kg/m Physical Exam Vitals and nursing note reviewed. Constitutional: Appearance: Normal appearance. Neurological: Mental Status: She is alert. Psychiatric: Mood and Affect: Mood normal. Behavior: Behavior normal. Assessment: Patient recurrent endometrial cancer currently doing well on maintenance Herceptin with no signs or symptoms of recurrent disease. Plan: Continue Herceptin, PET scan is scheduled for next month. Continue Herceptin until disease recurrence or toxicity. 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 , was diagnosed with a stage III C1 endometrial cancer in June 2020. She was treated with robotic hysterectomy BSO sentinel lymph node sampling followed by chemotherapy with carboplatinum and Taxol and Herceptin in [place]. However the patient developed a severe reaction after the first course. This was in early September. The patient decided not to pursue any further chemotherapy after that point. CT A/P/C 10/15 was NILESH In February 2022 patient presented to the office complaining of a gregoria vaginal discharge. Exam revealed anterior vaginal wall replaced by malignancy. 03/11/22 Biopsy performed in office. Final Diagnosis VAGINA, BIOPSY- VAGINAL MUCOSAL FRAGMENTS WITH INVOLVEMENT BY HIGH GRADE SEROUS CARCINOMA. 03/16/22 PET showed positive for carcinoma Pt receiving Trastuzumab, Carboplatin, Abraxane, last dose 07/29/22 Patient was then started on Herceptin maintenance. PET scan September 2023 showed no evidence of recurrent disease. Underwent recent echo which shows good left ventricular function. She denies any cardiac symptoms related to the Herceptin. Denies any vaginal bleeding, abdominal pain, pelvic pain, adenopathy. Has good performance status and is here today with her daughter. Past Medical History: Diagnosis Date Cancer (CMS/HCC) (HCC) 07/15/2020 Endometrial Hx antineoplastic chemo 04/04/2022 ended july 2022 Osteoarthritis Osteopenia Past Surgical History: Procedure Laterality Date FRACTURE SURGERY Left 1973 ankle HEMORRHOID SURGERY HYSTERECTOMY 06/2020 KNEE SURGERY Right 1969 and 1971 OOPHORECTOMY 06/2020 OTHER SURGICAL HISTORY 07/16/2020 [facility] BSO LND; Dr. Denis Richey SINUS SURGERY 2007 Social History Socioeconomic History Marital status: Single Tobacco Use Smoking status: Never Smokeless tobacco: Never Vaping Use Vaping status: Never Used Substance and Sexual Activity Alcohol use: Not Currently Drug use: Never Sexual activity: Not Currently Partners: Male Social Drivers of Health Financial Resource Strain: Low Risk (01/20/2023) Overall Financial Resource Strain (CARDIA) Difficulty of Paying Living Expenses: Not hard at all Food Insecurity: No Food Insecurity (01/20/2023) Hunger Vital Sign Worried About Running Out of Food in the Last Year: Never true Ran Out of Food in the Last Year: Never true Transportation Needs: No Transportation Needs (01/20/2023) PRAPARE - Transportation Lack of Transportation (Medical): No Lack of Transportation (Non-Medical): No Current Outpatient Medications Medication Sig Dispense Refill Alpha-Lipoic Acid 600 MG capsule Take by mouth. B Egffjsf-A-Sjeauqb (B-COMPLEX/VITAMIN C, W/ CA, PO) Take by mouth. multivitamin with minerals (Cerovite) 18-400 mg-mcg tablet tablet Take 1 tablet by mouth daily. No current facility-administered medications for this visit. Facility-Administered Medications Ordered in Other Visits Medication Dose Route Frequency Provider Last Rate Last Admin sodium chloride 0.9 % infusion 5-250 mL/hr IntraVENous Once PRN Denis Richey MD Review of Systems Gastrointestinal: Negative for abdominal distention and abdominal pain. Genitourinary: Negative for pelvic pain and vaginal bleeding. Hematological: Negative for adenopathy. Paclitaxel and Levofloxacin BP (!) 197/82 Pulse 76 Ht 1.6 m (5' 3) Wt 68 kg (150 lb) BMI 26.57 kg/m? Physical Exam Vitals and nursing note reviewed. Constitutional: Appearance: Normal appearance. Neurological: Mental Status: She is alert. Psychiatric: Mood and Affect: Mood normal. Behavior: Behavior normal. Assessment: Patient recurrent endometrial cancer currently doing well on maintenance Herceptin with no signs or symptoms of recurrent disease. Plan: Continue Herceptin, PET scan is scheduled for next month. Continue Herceptin until disease recurrence or toxicity. [facility] 03-21-2024 Telephone encount er Note We have been unable to reach your patient to schedule their testing. Test Name: PET/CT skull base to mid thigh 1st Attempt: [employer], [employer] message 2nd Attempt: called and LVM [facility] [place] 03-21-2024 Miscellaneous Notes Formattin g of this note might be different from the original. We have been unable to reach your patient to schedule their testing. Test Name: PET/CT skull base to mid thigh 1st Attempt: [employer] message 2nd Attempt: called and LVM documented in this encounter [facility] [place] 03-01-2024 Telephone encount er Note Called pt. Left VM with normal CA 125 results. [facility] [place] 03-01-2024 Miscellaneous Notes Formattin g of this note might be different from the original. Called pt. Left VM with normal CA 125 results. documented in this encounter [facility] [place] 03-01-2024 History of Presen t illness Narrative 1425: Patient here for Trazimera Treatment. PIV placed in L. AC. With specimen collected and sent to lab. Labs not needed to proceed with Trazimera maintenance. 1517: Ordered treatment completed. Patient discharged without any issues. Patient has a copy of next infusion appointment and verbalizes understanding. All questions answered. documented in this encounter [facility] [place] 02-25-2024 Telephone encount er Note We have been unable to reach your patient to schedule their testing. Test Name: Eryn 1st Attempt: 01/04/2024 2nd Attempt: 02/25/2024 [facility] 02-25-2024 Miscellaneous Notes Formattin g of this note might be different from the original. We have been unable to reach your patient to schedule their testing. Test Name: Eryn 1st Attempt: 01/04/2024 2nd Attempt: 02/25/2024 documented in this encounter [facility] 02-07-2024 Telephone encount er Note Spoke with pt and she had fell helping son move. Scrapped side of leg on cement step. Pt states today it is red, swollen and has odor. Pt dermatology had seen it previously with it looking fine. Pt is going to call dermatology back or go to urgent care to have wound assessed. Pt does not have PCP. Pt verbalized understanding. [facility] 02-07-2024 Miscellaneous Notes Formattin g of this note might be different from the original. Spoke with pt and she had fell helping son move. Scrapped side of leg on cement step. Pt states today it is red, swollen and has odor. Pt dermatology had seen it previously with it looking fine. Pt is going to call dermatology back or go to urgent care to have wound assessed. Pt does not have PCP. Pt verbalized understanding. ----- Message from Linda Bear sent at 02/05/2024 2:19 PM EST ----- Not able to put in orders. Can you please do for me so I can fax both orders to [place]. Thank you! ----- Message ----- From: Denis Richey MD Sent: 02/02/2024 2:00 PM EST To: Linda Deluna Patient needs PET scan for March. Also, I tried to put it a order for a screening mammogram but I kept getting blocked. Can you help me order a screening mammogram through [facility], the patient plans to do her mammogram this year in [place]? documented in this encounter [facility] [place] 02-05-2024 Telephone encount er Note ----- Message from Linda Marianela sent at 02/05/2024 2:19 PM EST ----- Not able to put in orders. Can you please do for me so I can fax both orders to [place]. Thank you! ----- Message ----- From: Denis Richey MD Sent: 02/02/2024 2:00 PM EST To: Linda Deluna Patient needs PET scan for March. Also, I tried to put it a order for a screening mammogram but I kept getting blocked. Can you help me order a screening mammogram through [facility], the patient plans to do her mammogram this year in [place]? [facility] [place] 02-02-2024 History of Presen t illness Narrative Patient arrived ambulatory for C30D1 Trazimera infusion. Patient has no new or worsening symptoms today. Peripheral IV placed in R AC by Apryl TOTH. CBC/CMP/Ca125 studies collected from site and sent to [facility]. POC reviewed and patient verbalized understanding. Patient has no further questions at this time. 1440: Patient tolerated infusion with no noted complications. Peripheral IV removed intact and site benign. Patient verbalized understanding of discharge plan and follow-up care. Patient discharged home ambulatory. 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 she was diagnosed with a stage III C1 endometrial cancer in June 2020. She was treated with robotic hysterectomy BSO sentinel lymph node sampling followed by chemotherapy with carboplatinum and Taxol and Herceptin in [place]. However the patient developed a severe reaction after the first course. This was in early September. The patient decided not to pursue any further chemotherapy after that point. CT A/P/C 10/15 was NILESH In February 2022 patient presented to the office complaining of a gregoria vaginal discharge. Exam revealed anterior vaginal wall replaced by malignancy. 03/11/22 Biopsy performed in office. Final Diagnosis VAGINA, BIOPSY- VAGINAL MUCOSAL FRAGMENTS WITH INVOLVEMENT BY HIGH GRADE SEROUS CARCINOMA. 03/16/22 PET showed positive for carcinoma Pt cannot tolerate Taxol due to reaction-painful rash, tried steroids and Benadryl with no relief. Pt receiving Trastuzumab, Carboplatin, Abraxane, last dose 07/29/22 Patient was then started on Herceptin maintenance. PET scan September 2023 showed no evidence of recurrent disease. Patient denies any signs or symptoms of recurrent disease. Denies any cardiac symptoms. Is here today for Herceptin. Past Medical History: Diagnosis Date Cancer (CMS/HCC) (HCC) 07/15/2020 Endometrial Hx antineoplastic chemo 04/04/2022 ended july 2022 Osteoarthritis Osteopenia Past Surgical History: Procedure Laterality Date FRACTURE SURGERY Left 1973 ankle HEMORRHOID SURGERY HYSTERECTOMY 06/2020 KNEE SURGERY Right 1969 and 1971 OOPHORECTOMY 06/2020 OTHER SURGICAL HISTORY 07/16/2020 [facility] BSO LND; Dr. Denis Richey SINUS SURGERY 2006 Social History Socioeconomic History Marital status: Single Tobacco Use Smoking status: Never Smokeless tobacco: Never Vaping Use Vaping status: Never Used Substance and Sexual Activity Alcohol use: Not Currently Drug use: Never Sexual activity: Not Currently Partners: Male Social Drivers of Health Financial Resource Strain: Low Risk (01/20/2023) Overall Financial Resource Strain (CARDIA) Difficulty of Paying Living Expenses: Not hard at all Food Insecurity: No Food Insecurity (01/20/2023) Hunger Vital Sign Worried About Running Out of Food in the Last Year: Never true Ran Out of Food in the Last Year: Never true Transportation Needs: No Transportation Needs (01/20/2023) PRAPARE - Transportation Lack of Transportation (Medical): No Lack of Transportation (Non-Medical): No Current Outpatient Medications Medication Sig Dispense Refill Alpha-Lipoic Acid 600 MG capsule Take by mouth. B Zljgzfd-F-Qtodrsd (B-COMPLEX/VITAMIN C, W/ CA, PO) Take by mouth. multivitamin with minerals (Cerovite) 18-400 mg-mcg tablet tablet Take 1 tablet by mouth daily. No current facility-administered medications for this visit. Facility-Administered Medications Ordered in Other Visits Medication Dose Route Frequency Provider Last Rate Last Admin sodium chloride 0.9 % infusion 5-250 mL/hr IntraVENous Once PRN Denis Richey MD Review of Systems Cardiovascular: Negative. Genitourinary: Negative for pelvic pain and vaginal bleeding. Hematological: Negative for adenopathy. Paclitaxel and Levofloxacin There were no vitals taken for this visit. Physical Exam Vitals and nursing note reviewed. Exam conducted with a business services vice president present. Constitutional: Appearance: Normal appearance. Abdominal: General: Abdomen is flat. There is no distension. Palpations: Abdomen is soft. There is no mass. Genitourinary: General: Normal vulva. Comments: Uterus/tubes/ovaries are absent Vagina: well healed cuff. No masses BME: no masses Bladder: no masses Urethra: midline and mobile Lymphadenopathy: Upper Body: Right upper body: No supraclavicular adenopathy. Left upper body: No supraclavicular adenopathy. Lower Body: No right inguinal adenopathy. No left inguinal adenopathy. Neurological: Mental Status: She is alert. Assessment: No evidence of recurrent disease Echocardiogram has been reviewed Plan: Continue Herceptin. Discussed signs and symptoms of recurrent disease. Total time spent in review of EMR, coordination of infusion center with chemotherapy or calculation and checking of labs as well as echocardiograms was 25 minutes Will order a PET scan for March. Patient also needs mammogram documented in this encounter [facility] [place] 12-15-2023 History of Presen t illness Narrative Pt. Here for trazimera infusion, labs drawn via PIV. 1438-Ordered treatment completed. Patient discharged without any issues. Patient has a copy of next infusion appointment and verbalizes understanding. All questions answered. documented in this encounter [facility] [place] 12-14-2023 Telephone encount er Note Pateint aware of schedule and she will get copy at her chemo appointment. [facility] [place] 12-14-2023 Miscellaneous Notes Formattin g of this note might be different from the original. Pateint aware of schedule and she will get copy at her chemo appointment. Her performance status is 0. She denies any grade 3 or 4 toxicities. She is tolerating Trazimera well. She does not have:Weakness, Fever, Chills, Sweats, Anorexia, Weight loss, Mouth sores, Nausea,Vomiting,Diarrhea, Constipation,Dizziness, Pain,Arthralgias, Myalgias, Edema,SOB,. Denies Abdominal pain, Abdominal distention, Vaginal bleeding or discharge. She denies SOB, leg swelling. Tachycardia. Her next muga will be in [place] on 12/28. She is being treated tomorrow in [place]. documented in this encounter [facility] [place] 12-14-2023 Telephone encount er Note Her performance status is 0. She denies any grade 3 or 4 toxicities. She is tolerating Trazimera well. She does not have:Weakness, Fever, Chills, Sweats, Anorexia, Weight loss, Mouth sores, Nausea,Vomiting,Diarrhea, Constipation,Dizziness, Pain,Arthralgias, Myalgias, Edema,SOB,. Denies Abdominal pain, Abdominal distention, Vaginal bleeding or discharge. She denies SOB, leg swelling. Tachycardia. Her next muga will be in [place] on 12/28. She is being treated tomorrow in [place]. [facility] [place] 11-24-2023 History of Presen t illness Narrative Pt. Here for trazimera infusion, labs drawn via PIV. 1421-Ordered treatment completed. Patient discharged without any issues. Patient has a copy of next infusion appointment and verbalizes understanding. All questions answered. documented in this encounter [facility] [place] 11-03-2023 History of Presen t illness Narrative Patient arrived ambulatory for Trazimera. Patient has no complaints and verbalizes understanding of POC. PIV started and labs obtained. 1523 Patient tolerated infusion well and patient discharged home ambulatory. documented in this encounter [facility] [place] 11-03-2023 History of Presen t illness Narrative Patient arrived ambulatory for Trazimera. Patient has no complaints and verbalizes understanding of POC. PIV started and labs obtained. 1523 Patient tolerated infusion well and patient discharged home ambulatory. documented in this encounter [facility] [place] 11-03-2023 History of Presen t illness Narrative Patient arrived ambulatory for Trazimera. Patient has no complaints and verbalizes understanding of POC. PIV started and labs obtained. 1523 Patient tolerated infusion well and patient discharged home ambulatory. documented in this encounter [facility] [place] 11-03-2023 History of Presen t illness Narrative Patient arrived ambulatory for Trazimera. Patient has no complaints and verbalizes understanding of POC. PIV started and labs obtained. 1523 Patient tolerated infusion well and patient discharged home ambulatory. documented in this encounter [facility] [place] 11-03-2023 History of Presen t illness Narrative Spoke to patient and she is feeling well. Eating and drinking well. Just getting over a cold. Denies fever and her drainage was clkear. Covid test negative. She denies SOB, CP, extreme fatigue, diarrhea, abdominal pain. She just returned from a vacation to [place] and states she was very active and had a great time. She is due for trazimera today. documented in this encounter [facility] [place] 10-13-2023 History of Presen t illness Narrative Pt. Here for trazimera infusion, labs drawn via piv 1440-Ordered treatment completed. Patient discharged without any issues. Patient has a copy of next infusion appointment and verbalizes understanding. All questions answered. documented in this encounter [facility] [place] 09-22-2023 History of Presen t illness Narrative Here fo Trazimera infusion, PIV inserted, labs drawn. 1428 Ordered treatment completed. Patient discharged without any issues. Patient has a copy of next infusion appointment and verbalizes understanding. All questions answered. documented in this encounter [facility] [place] 09-21-2023 History of Presen t illness Narrative .Patient was identified and seen today via Telehealth by agreement and consent. I used the following Telehealth technology: Audio and video capabilities. Patient location: Patient Location: Home. This patient encounter is appropriate and reasonable under the circumstances: transportation issues . The patient has been advised of the potential risks and limitations of this mode of treatment (including but not limited to the absence of in-person examination) and has agreed to be treated in a remote fashion in spite of them. Any and all of the patient's/patient's family's questions on this issue have been answered and I have made no promises or guarantees to the patient. The patient has also been advised to contact this office for worsening conditions or problems, and seek emergency medical treatment and/or call 911 if the patient deems either necessary. The patient stated that they are currently in the [facility]. If the patient is a minor, permission has been obtained by the parent or guardian for the patient to receive medical care at this visit. 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 she was diagnosed with a stage III C1 endometrial cancer in June 2020. She was treated with robotic hysterectomy BSO sentinel lymph node sampling followed by chemotherapy with carboplatinum and Taxol and Herceptin in [place]. However the patient developed a severe reaction after the first course. This was in early September. The patient decided not to pursue any further chemotherapy after that point. CT A/P/C 10/15 was NILESH In February 2022 patient presented to the office complaining of a gregoria vaginal discharge. Exam revealed anterior vaginal wall replaced by malignancy. 03/11/22 Biopsy performed in office. Final Diagnosis VAGINA, BIOPSY- VAGINAL MUCOSAL FRAGMENTS WITH INVOLVEMENT BY HIGH GRADE SEROUS CARCINOMA. 03/16/22 PET showed positive for carcinoma Pt cannot tolerate Taxol due to reaction-painful rash, tried steroids and Benadryl with no relief. Pt receiving Trastuzumab, Carboplatin, Abraxane, last dose 07/29/22 Patient was then started on Herceptin maintenance. PET scan February 2023 showed no evidence of recurrent disease Interval History: Patient here today for consideration of maintenance Herceptin Patient is tolerating the chemotherapy well, denies any cardiac symptoms. Changes her tinnitus is stable. Denies any other signs or symptoms of recurrent disease. Denies any vaginal bleeding. No new abdominal symptoms. Has good performance status. Energy level is good. Good appetite- gaining weight. ECHO 05/14/23 was WNL. ECHO 08/07/23 was 54%- Trazimera was held for 3 weeks ECHO on 09/01/23 was 62% resumed chemo. Next ECHO is due September 26 to recheck EF. Past Medical History: Diagnosis Date Cancer (CMS/HCC) (HCC) 07/15/2020 Endometrial Hx antineoplastic chemo 04/04/2022 ended july 2022 Osteoarthritis Osteopenia Social History Socioeconomic History Marital status: Single Tobacco Use Smoking status: Never Smokeless tobacco: Never Vaping Use Vaping status: Never Used Substance and Sexual Activity Alcohol use: Not Currently Drug use: Never Sexual activity: Not Currently Partners: Male Social Determinants of Health Financial Resource Strain: Low Risk (01/20/2023) Overall Financial Resource Strain (CARDIA) Difficulty of Paying Living Expenses: Not hard at all Food Insecurity: No Food Insecurity (01/20/2023) Hunger Vital Sign Worried About Running Out of Food in the Last Year: Never true Ran Out of Food in the Last Year: Never true Transportation Needs: No Transportation Needs (01/20/2023) PRAPARE - Transportation Lack of Transportation (Medical): No Lack of Transportation (Non-Medical): No Past Surgical History: Procedure Laterality Date FRACTURE SURGERY Left 1973 ankle HEMORRHOID SURGERY HYSTERECTOMY 06/2020 KNEE SURGERY Right 1969 and 1970 OOPHORECTOMY 06/2020 OTHER SURGICAL HISTORY 07/16/2020 [facility] BSO LND; Dr. Denis Richey SINUS SURGERY 2006 Review of Systems Cardiovascular: Negative. Gastrointestinal: Negative for abdominal distention and abdominal pain. Genitourinary: Negative for pelvic pain and vaginal bleeding. Hematological: Negative for adenopathy. Paclitaxel and Levofloxacin Current Outpatient Medications Medication Sig Dispense Refill Alpha-Lipoic Acid 600 MG capsule Take by mouth. B Jmslels-F-Fhfnpxf (B-COMPLEX/VITAMIN C, W/ CA, PO) Take by mouth. multivitamin with minerals (Cerovite) 18-400 mg-mcg tablet tablet Take 1 tablet by mouth daily. No current facility-administered medications for this visit. Facility-Administered Medications Ordered in Other Visits Medication Dose Route Frequency Provider Last Rate Last Admin sodium chloride 0.9 % infusion 5-250 mL/hr IntraVENous Once PRN Denis Richey MD There were no vitals taken for this visit. Physical Exam Vitals and nursing note reviewed. Exam conducted with a business services vice president present. Constitutional: Appearance: Normal appearance. Abdominal: General: Abdomen is flat. Palpations: Abdomen is soft. Genitourinary: General: Normal vulva. Comments: Uterus/tubes/ovaries are absent Vagina: well healed cuff. No masses BME: no masses Bladder: no masses Urethra: midline and mobile Lymphadenopathy: Upper Body: Right upper body: No supraclavicular adenopathy. Left upper body: No supraclavicular adenopathy. Lower Body: No right inguinal adenopathy. No left inguinal adenopathy. Skin: General: Skin is warm and dry. Neurological: Mental Status: She is alert. Psychiatric: Mood and Affect: Mood normal. Behavior: Behavior normal. Physical Exam not performed today due to televisit. Laboratory studies for chemotherapy has personally been reviewed, platelet count is normal. Recent echocardiogram is also personally been reviewed. Imaging ordered today- will call with results and follow-up accordingly. Assessment: No evidence of recurrent disease on exam, vaginal lesions have completely gone away. Currently on Herceptin maintenance therapy which she is tolerating well Plan: Continue Herceptin until evidence of disease progression or toxicity. Total time spent today with review of EMR, review of laboratory studies, calculation of chemotherapy orders and sending them to infusion center in direct patient contact was 25 minutes on day of service documented in this encounter [facility] [place] 09-01-2023 History of Presen t illness Narrative Pt. Here for trazimera infusion, labs drawn via piv, orders not to wait on lab to proceed with treatment. 1557-Ordered treatment completed. Patient discharged without any issues. Patient has a copy of next infusion appointment and verbalizes understanding. All questions answered. documented in this encounter [facility] [place] 08-29-2023 Note Addended by: SILVANA MERCER on: 08/29/2023 01:31 PM Modules accepted: Orders [facility] [place] 08-29-2023 Miscellaneous Notes Addended by: SILVANA HAMILTON on: 08/29/2023 01:31 PM Modules accepted: Orders Spoke to patient and she is aware that she will need a repeat TTE in 4 weeks. Order faxed with confirmation to [facility] [phone] Spoke to patient and notified of muga results EF 62% which is back to range she had been in prior to her last test. She is good for trazimera on 08/31. We will give her the loading dose. She agrees with the plan and verbalizes understanding. documented in this encounter [facility] [place] 08-29-2023 Telephone encount er Note Spoke to patient and she is aware that she will need a repeat TTE in 4 weeks. Order faxed with confirmation to [facility] [phone] [facility] [place] 08-29-2023 Telephone encount er Note Spoke to patient and notified of muga results EF 62% which is back to range she had been in prior to her last test. She is good for trazimera on 08/31. We will give her the loading dose. She agrees with the plan and verbalizes understanding. [facility] 08-01-2023 Telephone encount er Note Test Name: Transthoracic echocardiogram (TTE) complete with contrast, bubble, strain, and 3D PRN Reaching to office to see if test is still needed completed? Patient has a Transthoracic echocardiogram (TTE) complete with contrast, bubble, strain, and 3D PRN scheduled on 08/07/23 There are two active orders still for Transthoracic echocardiogram (TTE) complete with contrast, bubble, strain, and 3D PRN created on 01/16/23 and Transthoracic echocardiogram (TTE) complete with contrast, bubble, strain, and 3D PRN created on 04/07/23. Confirming with Ordering Provider before reaching out to Patient. Please advise. JS 08/01/23 [facility] [place] 08-01-2023 Miscellaneous Notes Formattin g of this note might be different from the original. Test Name: Transthoracic echocardiogram (TTE) complete with contrast, bubble, strain, and 3D PRN Reaching to office to see if test is still needed completed? Patient has a Transthoracic echocardiogram (TTE) complete with contrast, bubble, strain, and 3D PRN scheduled on 08/07/23 There are two active orders still for Transthoracic echocardiogram (TTE) complete with contrast, bubble, strain, and 3D PRN created on 01/16/23 and Transthoracic echocardiogram (TTE) complete with contrast, bubble, strain, and 3D PRN created on 04/07/23. Confirming with Ordering Provider before reaching out to Patient. Please advise. PAYAM 08/01/23 documented in this encounter [facility] [place] 07-21-2023 History of Presen t illness Narrative Pt. Here for trazimera infusion, labs drawn via PIV. 1515-Ordered treatment completed. Patient discharged without any issues. Patient has a copy of next infusion appointment and verbalizes understanding. All questions answered. documented in this encounter [facility] 07-11-2023 Telephone encount er Note We have been unable to reach your patient to schedule their testing. Test Name: Transthoracic echocardiogram (TTE) complete with contrast, bubble, strain, and 3D PRN 1st Attempt: 07/01/23 sent mychart msg KGK 2nd Attempt: 07/11/23 called and ISAEL ANTHONY [facility] 07-11-2023 Miscellaneous Notes Formattin g of this note might be different from the original. We have been unable to reach your patient to schedule their testing. Test Name: Transthoracic echocardiogram (TTE) complete with contrast, bubble, strain, and 3D PRN 1st Attempt: 07/01/23 sent mychart msg KGK 2nd Attempt: 07/11/23 called and ISAEL ANTHONY documented in this encounter [facility] 06-30-2023 History of Presen t illness Narrative Patient arrived ambulatory for Trazimera. Patient has no complaints and saw Mario Mason STRATEGIC ACCOUNT MANAGER prior to infusion. Patient has some neuropathy and no other complaints. Verbalizes understanding of POC. PIV started and labs obtained. 1520 Patient tolerated infusion well and patient discharged home ambulatory. 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 she was diagnosed with a stage III C1 endometrial cancer in June 2020. She was treated with robotic hysterectomy BSO sentinel lymph node sampling followed by chemotherapy with carboplatinum and Taxol and Herceptin in [place]. However the patient developed a severe reaction after the first course. This was in early September. The patient decided not to pursue any further chemotherapy after that point. CT A/P/C 10/15 was NILESH In February 2022 patient presented to the office complaining of a gregoria vaginal discharge. Exam revealed anterior vaginal wall replaced by malignancy. 03/11/22 Biopsy performed in office. Final Diagnosis VAGINA, BIOPSY- VAGINAL MUCOSAL FRAGMENTS WITH INVOLVEMENT BY HIGH GRADE SEROUS CARCINOMA. 03/16/22 PET showed positive for carcinoma Pt cannot tolerate Taxol due to reaction-painful rash, tried steroids and Benadryl with no relief. Pt receiving Trastuzumab, Carboplatin, Abraxane, last dose 07/29/22 Patient was then started on Herceptin maintenance. ECHO 05/14/23 was WNL. PET scan February 2023 showed no evidence of recurrent disease Interval History: Patient here today for consideration of maintenance Herceptin Patient is tolerating the chemotherapy well, denies any cardiac symptoms. Changes her tinnitus is stable. Denies any other signs or symptoms of recurrent disease. Denies any vaginal bleeding. No new abdominal symptoms. Has good performance status. Past Medical History: Diagnosis Date Cancer (CMS/HCC) (HCC) 07/15/2020 Endometrial Hx antineoplastic chemo 04/04/2022 ended july 2022 Osteoarthritis Osteopenia Social History Socioeconomic History Marital status: Single Tobacco Use Smoking status: Never Smokeless tobacco: Never Vaping Use Vaping Use: Never used Substance and Sexual Activity Alcohol use: Not Currently Drug use: Never Sexual activity: Not Currently Partners: Male Social Determinants of Health Financial Resource Strain: Low Risk (01/20/2023) Overall Financial Resource Strain (CARDIA) Difficulty of Paying Living Expenses: Not hard at all Food Insecurity: No Food Insecurity (01/20/2023) Hunger Vital Sign Worried About Running Out of Food in the Last Year: Never true Ran Out of Food in the Last Year: Never true Transportation Needs: No Transportation Needs (01/20/2023) PRAPARE - Transportation Lack of Transportation (Medical): No Lack of Transportation (Non-Medical): No Past Surgical History: Procedure Laterality Date FRACTURE SURGERY Left 1973 ankle HEMORRHOID SURGERY HYSTERECTOMY 06/2020 KNEE SURGERY Right 1969 and 1970 OOPHORECTOMY 06/2020 OTHER SURGICAL HISTORY 07/16/2020 [facility] BSO LND; Dr. Denis Richey SINUS SURGERY 2007 Review of Systems Cardiovascular: Negative. Gastrointestinal: Negative for abdominal distention and abdominal pain. Genitourinary: Negative for pelvic pain and vaginal bleeding. Hematological: Negative for adenopathy. Paclitaxel and Levofloxacin Current Outpatient Medications Medication Sig Dispense Refill Alpha-Lipoic Acid 600 MG capsule Take by mouth. B Tfpssob-C-Bnvrcjh (B-COMPLEX/VITAMIN C, W/ CA, PO) Take by mouth. multivitamin with minerals (Cerovite) 18-400 mg-mcg tablet tablet Take 1 tablet by mouth daily. No current facility-administered medications for this visit. Facility-Administered Medications Ordered in Other Visits Medication Dose Route Frequency Provider Last Rate Last Admin sodium chloride 0.9 % infusion 5-250 mL/hr IntraVENous Once PRN Denis Richey MD BP (!) 153/80 (BP Location: Left arm, Patient Position: Sitting, BP Cuff Size: Adult long) Pulse 85 Wt 68 kg (150 lb) BMI 26.15 kg/m Physical Exam Vitals and nursing note reviewed. Exam conducted with a business services vice president present. Constitutional: Appearance: Normal appearance. Abdominal: General: Abdomen is flat. Palpations: Abdomen is soft. Genitourinary: General: Normal vulva. Comments: Uterus/tubes/ovaries are absent Vagina: well healed cuff. No masses BME: no masses Bladder: no masses Urethra: midline and mobile Lymphadenopathy: Upper Body: Right upper body: No supraclavicular adenopathy. Left upper body: No supraclavicular adenopathy. Lower Body: No right inguinal adenopathy. No left inguinal adenopathy. Skin: General: Skin is warm and dry. Neurological: Mental Status: She is alert. Psychiatric: Mood and Affect: Mood normal. Behavior: Behavior normal. Laboratory studies for chemotherapy has personally been reviewed, platelet count is normal. Recent echocardiogram is also personally been reviewed. Repeat imaging in August. Assessment: No evidence of recurrent disease on exam, vaginal lesions have completely gone away. Currently on Herceptin maintenance therapy which she is tolerating well Plan: Continue Herceptin until evidence of disease progression or toxicity. Total time spent today with review of EMR, review of laboratory studies, calculation of chemotherapy orders and sending them to infusion center in direct patient contact was 25 minutes on day of service documented in this encounter [facility] 06-28-2023 Telephone encount er Note We have been unable to reach your patient to schedule their test. Test Name: Cardiac blood pool MUGA (rest and/or stress) Ordered 06/27/22 note from deferred appt dated 06/24 is patient is having this done at [facility] 06-28-2023 Miscellaneous Notes Formattin g of this note might be different from the original. We have been unable to reach your patient to schedule their test. Test Name: Cardiac blood pool MUGA (rest and/or stress) Ordered 06/27/22 note from deferred appt dated 06/24 is patient is having this done at [facility] documented in this encounter [facility] 06-09-2023 History of Presen t illness Narrative Pt. Here for trazimera infusion labs drawn via PIV. 1515-Ordered treatment completed. Patient discharged without any issues. Patient has a copy of next infusion appointment and verbalizes understanding. All questions answered. 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 she was diagnosed with a stage III C1 endometrial cancer in June 2020. She was treated with robotic hysterectomy BSO sentinel lymph node sampling followed by chemotherapy with carboplatinum and Taxol and Herceptin in [place]. However the patient developed a severe reaction after the first course. This was in early September. The patient decided not to pursue any further chemotherapy after that point. CT A/P/C 10/15 was NILESH In February 2022 patient presented to the office complaining of a gregoria vaginal discharge. Exam revealed anterior vaginal wall replaced by malignancy. 03/11/22 Biopsy performed in office. Final Diagnosis VAGINA, BIOPSY- VAGINAL MUCOSAL FRAGMENTS WITH INVOLVEMENT BY HIGH GRADE SEROUS CARCINOMA. 03/16/22 PET showed positive for carcinoma Pt cannot tolerate Taxol due to reaction-painful rash, tried steroids and Benadryl with no relief. Pt receiving Trastuzumab, Carboplatin, Abraxane, last dose 07/29/22 Patient was then started on Herceptin maintenance. ECHO 08/2022 was WNL. PET scan February 2023 showed no evidence of recurrent disease Patient is tolerating the chemotherapy well, denies any cardiac symptoms. Changes her tinnitus is stable. Denies any other signs or symptoms of recurrent disease. Denies any vaginal bleeding. Has good performance status. Did cut herself while shaving today. Past Medical History: Diagnosis Date Cancer (CMS/HCC) (HCC) 07/15/2020 Endometrial Hx antineoplastic chemo 04/04/2022 ended july 2022 Osteoarthritis Osteopenia Social History Socioeconomic History Marital status: Single Tobacco Use Smoking status: Never Smokeless tobacco: Never Vaping Use Vaping Use: Never used Substance and Sexual Activity Alcohol use: Not Currently Drug use: Never Sexual activity: Not Currently Partners: Male Social Determinants of Health Financial Resource Strain: Low Risk (01/20/2023) Overall Financial Resource Strain (CARDIA) Difficulty of Paying Living Expenses: Not hard at all Food Insecurity: No Food Insecurity (01/20/2023) Hunger Vital Sign Worried About Running Out of Food in the Last Year: Never true Ran Out of Food in the Last Year: Never true Transportation Needs: No Transportation Needs (01/20/2023) PRAPARE - Transportation Lack of Transportation (Medical): No Lack of Transportation (Non-Medical): No Past Surgical History: Procedure Laterality Date FRACTURE SURGERY Left 1973 ankle HEMORRHOID SURGERY HYSTERECTOMY 06/2020 KNEE SURGERY Right 1969 and 1970 OOPHORECTOMY 06/2020 OTHER SURGICAL HISTORY 07/16/2020 [facility] BSO LND; Dr. Denis Richey SINUS SURGERY 2006 Review of Systems Cardiovascular: Negative. Gastrointestinal: Negative for abdominal distention and abdominal pain. Genitourinary: Negative for pelvic pain and vaginal bleeding. Skin: Positive for wound. Hematological: Negative for adenopathy. Paclitaxel and Levofloxacin Current Outpatient Medications Medication Sig Dispense Refill Alpha-Lipoic Acid 600 MG capsule Take by mouth. B Jyvymwo-I-Pqfundx (B-COMPLEX/VITAMIN C, W/ CA, PO) Take by mouth. multivitamin with minerals (Cerovite) 18-400 mg-mcg tablet tablet Take 1 tablet by mouth daily. No current facility-administered medications for this visit. Facility-Administered Medications Ordered in Other Visits Medication Dose Route Frequency Provider Last Rate Last Admin sodium chloride 0.9 % infusion 5-250 mL/hr IntraVENous Once PRN Denis Richey MD There were no vitals taken for this visit. Physical Exam Vitals and nursing note reviewed. Exam conducted with a business services vice president present. Constitutional: Appearance: Normal appearance. Abdominal: General: Abdomen is flat. Palpations: Abdomen is soft. Genitourinary: General: Normal vulva. Comments: Uterus/tubes/ovaries are absent Vagina: well healed cuff. No masses BME: no masses Bladder: no masses Urethra: midline and mobile Lymphadenopathy: Upper Body: Right upper body: No supraclavicular adenopathy. Left upper body: No supraclavicular adenopathy. Lower Body: No right inguinal adenopathy. No left inguinal adenopathy. Skin: General: Skin is warm and dry. Comments: On the outer lower left leg there was a small razor wound from shaving this morning. A new dressing was applied. No evidence of cellulitis noted. Neurological: Mental Status: She is alert. Psychiatric: Mood and Affect: Mood normal. Behavior: Behavior normal. Laboratory studies for chemotherapy has personally been reviewed, platelet count is normal. Recent echocardiogram is also personally been reviewed. Assessment: No evidence of recurrent disease on exam, vaginal lesions have completely gone away. Currently on Herceptin maintenance therapy which she is tolerating well Plan: Continue Herceptin until evidence of disease progression or toxicity. Total time spent today with review of EMR, review of laboratory studies, calculation of chemotherapy orders and sending them to infusion center in direct patient contact was 25 minutes on day of service documented in this encounter [facility] [place] 04-28-2023 History of Presen t illness Narrative Pt. Here for trazimera infusion, labs drawn via piv. 1536-Ordered treatment completed. Patient discharged without any issues. Patient has a copy of next infusion appointment and verbalizes understanding. All questions answered. documented in this encounter [facility] [place] 04-07-2023 History of Presen t illness Narrative Pt arrives today from for q3w Trazimera. Has no complaints on assessment. PIV inserted with ease. CBC, CMP, CA125 drawn and sent to CCL. OK to proceed without results. POC reviewed and pt understanding. 1526 Pt tolerated treatment well. PIV removed and gauze/coban placed to site. Pt given AVS with next apts as she will be going to [place] for some. Also given copy of order for ECHO to have done in [place]. Ambulatory home upon discharge in no acute distress. documented in this encounter [facility] [place] 02-24-2023 History of Presen t illness Narrative Patient arrived ambulatory for C16 Trazimera. PIV placed to LAC. CBC/CMP/CA125 collected and sent to [facility] at [facility]. See toxicity flowsheet for assessment. Patient tolerated treatment well. POC reviewed. PIV flushed and removed. Discharged ambulatory home. 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 HPI: Cary Swenson is a 71 y.o. she was diagnosed with a stage III C1 endometrial cancer in June 2020. She was treated with robotic hysterectomy BSO sentinel lymph node sampling followed by chemotherapy with carboplatinum and Taxol and Herceptin in [place]. However the patient developed a severe reaction after the first course. This was in early September. The patient decided not to pursue any further chemotherapy after that point. CT A/P/C 10/15 was NILESH In February 2022 patient presented to the office complaining of a gregoria vaginal discharge. Exam revealed anterior vaginal wall replaced by malignancy. 03/11/22 Biopsy performed in office. Final Diagnosis VAGINA, BIOPSY- VAGINAL MUCOSAL FRAGMENTS WITH INVOLVEMENT BY HIGH GRADE SEROUS CARCINOMA. 03/16/22 PET showed positive for carcinoma Pt cannot tolerate Taxol due to reaction-painful rash, tried steroids and Benadryl with no relief. Pt receiving Trastuzumab, Carboplatin, Abraxane, last dose 07/17 Patient was then started on Herceptin maintenance. ECHO 08/2022 was WNL. Patient is here today for maintenance Herceptin cycle #14 she states she is tolerating it very well. Recent echo was good. CA125 was stable. Denies any new signs or symptoms of recurrent cancer. Has excellent performance status. PET scan is scheduled for later this month. Past Medical History: Diagnosis Date Cancer (CMS/HCC) (HCC) 07/15/2020 Endometrial Hx antineoplastic chemo 04/04/2022 ended july 2022 Osteoarthritis Osteopenia Social History Socioeconomic History Marital status: Single Tobacco Use Smoking status: Never Smokeless tobacco: Never Vaping Use Vaping Use: Never used Substance and Sexual Activity Alcohol use: Not Currently Drug use: Never Sexual activity: Not Currently Partners: Male Social Determinants of Health Financial Resource Strain: Low Risk (01/20/2023) Overall Financial Resource Strain (CARDIA) Difficulty of Paying Living Expenses: Not hard at all Food Insecurity: No Food Insecurity (01/20/2023) Hunger Vital Sign Worried About Running Out of Food in the Last Year: Never true Ran Out of Food in the Last Year: Never true Transportation Needs: No Transportation Needs (01/20/2023) PRAPARE - Transportation Lack of Transportation (Medical): No Lack of Transportation (Non-Medical): No Past Surgical History: Procedure Laterality Date FRACTURE SURGERY Left 1973 ankle HEMORRHOID SURGERY HYSTERECTOMY 06/2020 KNEE SURGERY Right 1969 and 1971 OOPHORECTOMY 06/2020 OTHER SURGICAL HISTORY 07/16/2020 [facility] BSO LND; Dr. Denis Richey SINUS SURGERY 2007 Review of Systems Paclitaxel and Levofloxacin Current Outpatient Medications Medication Sig Dispense Refill Alpha-Lipoic Acid 600 MG capsule Take by mouth. B Oxqlhho-A-Pwbhnwx (B-COMPLEX/VITAMIN C, W/ CA, PO) Take by mouth. multivitamin with minerals (Cerovite) 18-400 mg-mcg tablet tablet Take 1 tablet by mouth daily. No current facility-administered medications for this visit. Facility-Administered Medications Ordered in Other Visits Medication Dose Route Frequency Provider Last Rate Last Admin sodium chloride 0.9 % infusion 5-250 mL/hr IntraVENous Once PRN Denis Richey MD sodium chloride 0.9 % infusion 5-250 mL/hr IntraVENous Once PRN Denis Richey MD trastuzumab-qyyp (Trazimera) 399 mg in sodium chloride 0.9 % 250 mL chemo IVPB 6 mg/kg (Treatment Plan Recorded) IntraVENous Once Denis Richey MD BP (!) 157/70 Pulse 80 Ht 1.6 m (5' 3) Wt 70.3 kg (155 lb) BMI 27.46 kg/m Physical Exam Vitals and nursing note reviewed. Constitutional: Appearance: Normal appearance. Neurological: Mental Status: She is alert. Psychiatric: Mood and Affect: Mood normal. Behavior: Behavior normal. Assessment: Recurrent endometrial cancer currently on maintenance Herceptin which she is tolerating well. Plan: Chemotherapy labs will be checked today, chemotherapy labs will be calculated signed and sent to infusion center today. Total time spent on day of service with coordination of care with chemotherapy as well as [id number] counseling the patient was 15 mins documented in this encounter [facility] [place] 02-06-2023 Telephone encount er Note Called patient with CA-125 results. Verbalizes understanding, no further questions. [facility] [place] 02-06-2023 Telephone encount er Note ----- Message from Denis Richey MD sent at 02/06/2023 12:30 PM EST ----- Plz call ----- Message ----- From: Deadeye Marksmanship Chato Lantigua Sent: 02/03/2023 5:04 PM EST To: Denis Richey MD [facility] 02-06-2023 Miscellaneous Notes Formattin g of this note might be different from the original. Called patient with CA-125 results. Verbalizes understanding, no further questions. ----- Message from Denis Richey MD sent at 02/06/2023 12:30 PM EST ----- Plz call ----- Message ----- From: Deadeye Marksmanship Chato Lantigua Sent: 02/03/2023 5:04 PM EST To: Denis Richey MD documented in this encounter [facility] [place] 02-06-2023 Telephone encount er Note Patient aware of no acute findings on left hip x-ray and left femur x-ray. PET to be scheduled in 1 month. Continue Trazimera as ordered. Patient will try Motrin as needed. Call if pain worsens or no improvement. Pt verbalized understanding, no further questions. [facility] [place] 02-06-2023 Miscellaneous Notes Formattin g of this note might be different from the original. Patient aware of no acute findings on left hip x-ray and left femur x-ray. PET to be scheduled in 1 month. Continue Trazimera as ordered. Patient will try Motrin as needed. Call if pain worsens or no improvement. Pt verbalized understanding, no further questions. documented in this encounter [facility] 02-03-2023 History of Presen t illness Narrative Pt arrived for cycle 15 trazimera. PIV placed. CBC/CMP/CA125 drawn from PIV and sent to CCL. Ok to proceed with treatment without results. Pt has been having left hip pain for the past 2-3 weeks. States that it worsens at night when she lays down. Xray ordered by EDWARD Chowdary. Pt was taken to radiology prior to infusion. 1725: Ordered treatment completed. Patient discharged without any issues. Patient has a copy of next infusion appointment and verbalizes understanding. All questions answered. documented in this encounter [facility] 01-20-2023 History of Presen t illness Narrative Patient was able to ambulate safely to the examination room. Provider was not notified of possible fall risk Pt asked if they have been to specialist,been in ER /hospitalized or had testing since last visit. yes Images from the original note were not included. [facility] [address] [facility] [address] Dept: [phone] Dept Loc: [phone] Visit type: New patient Reason for Visit: New Patient (Establish care ) and Hypertension Assessment and Plan 1. Elevated blood pressure, situational 2. Overweight - Lipid panel 3. Encounter for screening mammogram for malignant neoplasm of breast - Bilateral screening mammogram 4. Establishing care with new doctor, encounter for 5. Influenza vaccination declined 6. Pneumococcal vaccination declined 7. HIV screening declined 8. Screening for hepatitis C declined Blood pressure today at goal, no medication needed. This is likely whitecoat hypertension versus anxiety/stress related. Follow up in about 1 month (around 02/20/2023) for stress/?anxiety. Patient was involved and agreeable in shared decision making. Subjective This is a 72 y.o. female presenting for an initial visit for New patient appt, elevated BP. Had an elevated BP at last infusion appointment. Was noted as 188/83, 160s/88 on other office visits. At home BP is 120-129s SBP, DSP in the 70s. Only takes it once a week and at different times of the day. Does not salt food, no junk food, fast food. Mainly eating salad, veggie burgers, peanut butter. Nonsmoker, no second hand. No alcohol use. Has one cup of coffee in the morning, one diet coke in the afternoon. Does a 3 mile walk 2-3 times a week, along with daily piliates and mild weights. Her BP was usually low prior to her cancer, now has been higher. Has Endometrial cancer, had been getting infusion therapy with carboplatinum, Taxol, Herceptin. Prior had intolerance to the chemo, had a new tumor in last February, had taxol again but stopped and switched to Abraxane. But now is only on herceptin every 3 weeks. Has been off chemo since July. Had c-scope 2 years ago at [facility]. Was told had multiple polyps, told to have colonoscopy every 2 years. Allergies Allergen Reactions Paclitaxel Rash Levofloxacin Abdominal pain Outpatient Medications Prior to Visit Medication Sig Dispense Refill Alpha-Lipoic Acid 600 MG capsule Take by mouth. ascorbic acid (Vitamin C) 500 mg chewable tablet Chew 500 mg daily. B Bcmpavl-Q-Htnnbup (B-COMPLEX/VITAMIN C, W/ CA, PO) Take by mouth. multivitamin with minerals (Cerovite) 18-400 mg-mcg tablet tablet Take 1 tablet by mouth daily. Facility-Administered Medications Prior to Visit Medication Dose Route Frequency Provider Last Rate Last Admin sodium chloride 0.9 % infusion 5-250 mL/hr IntraVENous Once PRN Denis Richey MD Patient Active Problem List Diagnosis Date Noted Overweight 01/20/2023 Priority: Medium Other specified complication of vascular prosthetic devices, implants and grafts, initial encounter ([facility]) 03/29/2022 Priority: Medium Endometrial cancer (CMS/HCC) ([facility]) 07/16/2020 Past Medical History: Diagnosis Date Cancer (CMS/HCC) ([facility]) Endometrial Osteoarthritis Osteopenia Social History Tobacco Use Smoking status: Never Smokeless tobacco: Never Substance Use Topics Alcohol use: Not Currently Past Surgical History: Procedure Laterality Date FRACTURE SURGERY Left 1973 ankle HEMORRHOID SURGERY HYSTERECTOMY KNEE SURGERY Right 1969 and 1970 OTHER SURGICAL HISTORY 07/16/2020 [facility] BSO LND; Dr. Denis Richey SINUS SURGERY 2007 Family History Problem Relation Name Age of Onset High Blood Pressure Mother Shabana Arthritis Mother Shabana Cancer Mother Shabana skin Autoimmune disease Mother Shabana Hearing loss Mother Shabana Hypertension Mother Shabana Osteoporosis Maternal Grandmother Lung cancer Father Bonifacio Cancer Father Bonifacio Thyroid disease Sister Elizabeth Depression Sister Elizabeth High Blood Pressure Sister Elizabeth Cancer Sister Elizabeth skin Autoimmune disease Sister Elizabeth Cancer Paternal Grandfather Pimentel Cancer Paternal Grandmother Joellen Cancer Mother's Sister Corie Hearing loss Daughter Chelly Hypertension Sister Violette Suicide Attempts Son Gabe Health Maintenance Topic Date Due Medicare Annual Wellness (AWV) Never done Bone Density Scan Never done Colorectal Cancer Screening Never done Derm Melanoma Skin Check Never done Pneumococcal Vaccine: 65+ Years (1 - PCV) Never done Hepatitis C Screening Never done Diabetes Screening Never done DTaP/Tdap/Td Vaccines (1 - Tdap) Never done Zoster Vaccines (1 of 2) Never done COVID-19 Vaccine (3 - Krys risk series) 04/07/2021 Mammogram 06/28/2022 Influenza Vaccine (1) Never done Depression Screening 01/21/2024 HIB Vaccines Aged Out Hepatitis B Vaccines Aged Out IPV Vaccines Aged Out Hepatitis A Vaccines Aged Out Meningococcal Vaccine Aged Out Rotavirus Vaccines Aged Out HPV Vaccines Aged Out Objective BP 127/67 Pulse 67 Temp 36.6 C (97.8 F) (Temporal) Ht 5' 3.5 (1.613 m) Wt 154 lb 6.4 oz (70 kg) BMI 26.92 kg/m Physical Exam Vitals and nursing note reviewed. Constitutional: Appearance: Normal appearance. Eyes: Extraocular Movements: Extraocular movements intact. Pupils: Pupils are equal, round, and reactive to light. Cardiovascular: Rate and Rhythm: Normal rate and regular rhythm. Pulses: Normal pulses. Heart sounds: Normal heart sounds. Pulmonary: Effort: Pulmonary effort is normal. Breath sounds: Normal breath sounds. Abdominal: General: Abdomen is flat. Bowel sounds are normal. Palpations: Abdomen is soft. Musculoskeletal: General: Normal range of motion. Cervical back: Normal range of motion and neck supple. No tenderness. Lymphadenopathy: Cervical: No cervical adenopathy. Skin: General: Skin is warm and dry. Capillary Refill: Capillary refill takes less than 2 seconds. Neurological: Mental Status: She is alert. Data Reviewed and Summarized Labs: Results for orders placed or performed in visit on 01/13/23 CA 125 Result Value Ref Range CA 125 11.0 0.0 - 35.0 U/mL Comprehensive metabolic panel Result Value Ref Range SODIUM 138 135 - 145 mmol/L POTASSIUM 4.0 3.5 - 5.1 mmol/L CHLORIDE 103 98 - 107 mmol/L CARBON DIOXIDE 29 22 - 30 mmol/L ANION GAP 7 3 - 13 mmol/L UREA NITROGEN 18 (H) 7 - 17 mg/dL CREATININE 0.82 0.52 - 1.04 mg/dL GLUCOSE 93 70 - 100 mg/dL CALCIUM 8.8 8.4 - 10.4 mg/dL AST (SGOT) 35 15 - 46 U/L ALT 24 0 - 34 U/L ALKALINE PHOSPHATASE 92 38 - 126 U/L ALBUMIN 4.4 3.5 - 5.0 g/dL BILIRUBIN, TOTAL 0.7 0.2 - 1.3 mg/dL TOTAL PROTEIN 7.8 6.3 - 8.2 g/dL eGFR 77.1 >60.0 mL/min/1.73m*2 CBC auto differential Result Value Ref Range Auto WBC 3.4 (L) 3.6 - 10.7 10*3/uL RBC 3.29 (L) 3.8 - 5.20 10*6/uL Hemoglobin 11.3 (L) 11.7 - 16.0 g/dL Hematocrit 33.2 (L) 35.0 - 47.0 % MCV 100.9 (H) 80.0 - 98.0 fL MCH 34.4 (H) 26.0 - 34.0 pg MCHC 34.1 32.0 - 36.0 % RDW 13.2 11.5 - 14.5 % Platelets 214 140 - 440 10*3/uL MPV 8.0 7.4 - 12.4 fL nRBC 0.0 0.0 - 2.0 /100 WBCs Neutrophils Relative 58.8 40.0 - 80.0 % Lymphocytes Relative 32.1 20.0 - 40.0 % Monocytes Relative 7.2 2.0 - 10.0 % Eosinophils Relative 1.3 1.0 - 6.0 % Basophils Relative 0.6 0.0 - 2.0 % Neutrophils Absolute 2.0 1.8 - 7.0 10*3/uL Lymphocytes Absolute 1.1 1.0 - 4.3 10*3/uL Monocytes Absolute 0.2 0.0 - 0.8 10*3/uL Eosinophils Absolute 0.0 0.0 - 0.5 10*3/uL Basophils Absolute 0.0 0.0 - 0.2 10*3/uL Imaging/Testing: MARY HERRERA MD [facility] (Comment: Please note this report has been produced using speech recognition software and may contain errors related to that system including errors in grammar, punctuation, and spelling, as well as words and phrases that may be inappropriate. If there are any questions or concerns please feel free to contact the dictating provider for clarification.) INDIRECT SUPERVISION THIS SERVICE IS TO BE BILLED UNDER THE PRIMARY CARE EXCEPTION ([facility]) During or immediately after this visit, I discussed this case with the treating resident. Our discussion included the history obtained by the resident, the resident's exam findings, and the resident's treatment plan. The resident's note reflects the information we discussed, and I agree with the resident's assessment and treatment plan. documented in this encounter [facility] 01-13-2023 History of Presen t illness Narrative Patient arrived ambulatory for C14 Trazimera. PIV placed to LAC, CBC/CMP/CA125 collected and sent to CCL at [facility]. See toxicity flowsheet for assessment. Patient tolerated treatment well. POC reviewed. PIV flushed and removed. Discharged ambulatory home. 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 HPI: Cary Swenson is a 71 y.o. she was diagnosed with a stage III C1 endometrial cancer in June 2020. She was treated with robotic hysterectomy BSO sentinel lymph node sampling followed by chemotherapy with carboplatinum and Taxol and Herceptin in [place]. However the patient developed a severe reaction after the first course. This was in early September. The patient decided not to pursue any further chemotherapy after that point. CT A/P/C 10/15 was NILESH In February 2022 patient presented to the office complaining of a gregoria vaginal discharge. Exam revealed anterior vaginal wall replaced by malignancy. 03/11/22 Biopsy performed in office. Final Diagnosis VAGINA, BIOPSY- VAGINAL MUCOSAL FRAGMENTS WITH INVOLVEMENT BY HIGH GRADE SEROUS CARCINOMA. 03/16/22 PET showed positive for carcinoma Pt cannot tolerate Taxol due to reaction-painful rash, tried steroids and Benadryl with no relief. Pt receiving Trastuzumab, Carboplatin, Abraxane, last dose 07/17 Patient was then started on Herceptin maintenance. PET scan 09/06/2022 showed NILESH Interval History Patient is here today for maintenance Herceptin cycle #14 she states she is tolerating it very well. Denies any heart complaints. Denies any vaginal bleeding, abdominal pain, pelvic pain, adenopathy, change in appetite. Neuropathy unchanged, massages help, uses cream prn which helps. Declines wanting Cymbalta or gabapentin, reports neuropathy is tolerable. Fatigue tolerable, sleeps well, no N/V trouble eating. Bowels and urination ok, denies abdominal distention bloating vaginal bleeding discharge, denies shortness of breath chest pain chest pressure, denies edema 11/22/22 ECHO 60% Fax # when ordering ECHO: [place] [phone] Enjoys 1000 piece puzzles, usually does these after her daughter gets done doing them together. Past Medical History: Diagnosis Date Cancer (CMS/HCC) (HCC) Endometrial Osteoarthritis Osteopenia Social History Socioeconomic History Marital status: Single Tobacco Use Smoking status: Never Smokeless tobacco: Never Substance and Sexual Activity Alcohol use: Yes Drug use: Never Past Surgical History: Procedure Laterality Date FRACTURE SURGERY Left 1973 ankle HEMORRHOID SURGERY KNEE SURGERY Right 1969 and 1970 OTHER SURGICAL HISTORY 07/16/2020 [facility] BSO LND; Dr. Denis Richey SINUS SURGERY 2007 Review of Systems Constitutional: Negative for appetite change and unexpected weight change. Cardiovascular: Negative. Gastrointestinal: Negative for abdominal distention and abdominal pain. Genitourinary: Negative for pelvic pain and vaginal bleeding. Hematological: Negative for adenopathy. Paclitaxel and Levofloxacin Current Outpatient Medications Medication Sig Dispense Refill ascorbic acid (Vitamin C) 500 mg chewable tablet Chew 500 mg daily. B Oiugadd-R-Uyarthh (B-COMPLEX/VITAMIN C, W/ CA, PO) Take by mouth. multivitamin with minerals (Cerovite) 18-400 mg-mcg tablet tablet Take 1 tablet by mouth daily. No current facility-administered medications for this visit. Facility-Administered Medications Ordered in Other Visits Medication Dose Route Frequency Provider Last Rate Last Admin sodium chloride 0.9 % infusion 5-250 mL/hr IntraVENous Once PRN Denis Richey MD There were no vitals taken for this visit. Physical Exam Vitals and nursing note reviewed. Exam conducted with a business services vice president present. Constitutional: Appearance: Normal appearance. Abdominal: General: Abdomen is flat. Palpations: Abdomen is soft. There is no mass. Genitourinary: General: Normal vulva. Comments: Deferred. Lymphadenopathy: Upper Body: Right upper body: No supraclavicular adenopathy. Left upper body: No supraclavicular adenopathy. Lower Body: No right inguinal adenopathy. No left inguinal adenopathy. Skin: General: Skin is warm and dry. Neurological: Mental Status: She is alert. Psychiatric: Mood and Affect: Mood normal. Behavior: Behavior normal. Assessment: No evidence of recurrent disease Tolerating Herceptin maintenance therapy well PET every 6 months, due February 2023. CA125 has remained stable. Plan: Reviewed recent PET scan as well as recent echocardiogram. We will continue Herceptin until disease progression or toxicity. All the patient's questions were answered to the best of my ability. Chemotherapy orders have been calculated signed and sent to the infusion center and chemotherapy labs have personally been reviewed. documented in this encounter [facility] 12-23-2022 History of Presen t illness Narrative Pt arrived for IV Trazimera. PIV placed. CBC/CMP/CA125 drawn from PIV and sent to lab. Ok to proceed without blood work results. No acute distress, pt reports feeling well. 1453: Ordered treatment completed. Patient discharged without any issues. Patient has a copy of next infusion appointment and verbalizes understanding. All questions answered. documented in this encounter [facility] 12-02-2022 History of Presen t illness Narrative Patient arrived ambulatory from OV for trazimera. CBC with diff, CMP, CA125 collected via PIV start and sent to [facility] for processing. 1415-Tolerated infusion without incident. PIV dcd, gauze and coban to site. Aware of next appt, has calendar. Patient discharged ambulatory to home. 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 HPI: Cary Swenson is a 71 y.o. she was diagnosed with a stage III C1 endometrial cancer in June 2020. She was treated with robotic hysterectomy BSO sentinel lymph node sampling followed by chemotherapy with carboplatinum and Taxol and Herceptin in [place]. However the patient developed a severe reaction after the first course. This was in early September. The patient decided not to pursue any further chemotherapy after that point. CT A/P/C 10/15 was NILESH In February 2022 patient presented to the office complaining of a gregoria vaginal discharge. Exam revealed anterior vaginal wall replaced by malignancy. 03/11/22 Biopsy performed in office. Final Diagnosis VAGINA, BIOPSY- VAGINAL MUCOSAL FRAGMENTS WITH INVOLVEMENT BY HIGH GRADE SEROUS CARCINOMA. 03/16/22 PET showed positive for carcinoma Pt cannot tolerate Taxol due to reaction-painful rash, tried steroids and Benadryl with no relief. Pt receiving Trastuzumab, Carboplatin, Abraxane, last dose 07/17 Patient was then started on Herceptin maintenance. ECHO 08/2022 was WNL. Patient is here today for maintenance Herceptin cycle #12 she states she is tolerating it very well. Denies any heart complaints. Denies any vaginal bleeding, abdominal pain, pelvic pain, adenopathy, change in appetite. PET scan 08/2022 showed NILESH Past Medical History: Diagnosis Date Cancer (CMS/HCC) (HCC) Endometrial Osteoarthritis Osteopenia Social History Socioeconomic History Marital status: Single Tobacco Use Smoking status: Never Smokeless tobacco: Never Substance and Sexual Activity Alcohol use: Yes Drug use: Never Past Surgical History: Procedure Laterality Date FRACTURE SURGERY Left 1973 ankle HEMORRHOID SURGERY KNEE SURGERY Right 1969 and 1970 OTHER SURGICAL HISTORY 07/16/2020 [facility] BSO LND; Dr. Denis Richey SINUS SURGERY 2006 Review of Systems Constitutional: Negative for appetite change and unexpected weight change. Cardiovascular: Negative. Gastrointestinal: Negative for abdominal distention and abdominal pain. Genitourinary: Negative for pelvic pain and vaginal bleeding. Hematological: Negative for adenopathy. Paclitaxel and Levofloxacin Current Outpatient Medications Medication Sig Dispense Refill ascorbic acid (Vitamin C) 500 mg chewable tablet Chew 500 mg daily. B Ibwovwm-E-Jruleui (B-COMPLEX/VITAMIN C, W/ CA, PO) Take by mouth. multivitamin with minerals (Cerovite) 18-400 mg-mcg tablet tablet Take 1 tablet by mouth daily. dexAMETHasone (Decadron) 4 MG tablet Take 5 tablets po 12 hours and 6 hours prior to each chemo. 10 tablet 3 No current facility-administered medications for this visit. Facility-Administered Medications Ordered in Other Visits Medication Dose Route Frequency Provider Last Rate Last Admin sodium chloride 0.9 % infusion 5-250 mL/hr IntraVENous Once PRN Denis Richey MD BP (!) 168/87 Pulse 65 Ht 1.626 m (5' 4) Wt 68.9 kg (152 lb) BMI 26.09 kg/m Physical Exam Vitals and nursing note reviewed. Exam conducted with a business services vice president present. Constitutional: Appearance: Normal appearance. Abdominal: General: Abdomen is flat. Palpations: Abdomen is soft. There is no mass. Genitourinary: General: Normal vulva. Comments: Uterus/tubes/ovaries are absent Vagina: well healed cuff. No masses BME: no masses Bladder: no masses Urethra: midline and mobile Lymphadenopathy: Upper Body: Right upper body: No supraclavicular adenopathy. Left upper body: No supraclavicular adenopathy. Lower Body: No right inguinal adenopathy. No left inguinal adenopathy. Skin: General: Skin is warm and dry. Neurological: Mental Status: She is alert. Psychiatric: Mood and Affect: Mood normal. Behavior: Behavior normal. Assessment: No evidence of recurrent disease Tolerating Herceptin maintenance therapy well Plan: Reviewed recent PET scan as well as recent echocardiogram. We will continue Herceptin until disease progression or toxicity. All the patient's questions were answered to the best of my ability. Chemotherapy orders have been calculated signed and sent to the infusion center and chemotherapy labs have personally been reviewed. documented in this encounter [facility] 11-11-2022 History of Presen t illness Narrative Pt arrived for maintenance trazimera cycle 11. Blood work drawn from PIV and sent to steven [facility] to proceed without blood work results. 1334: Ordered treatment completed. Patient discharged without any issues. Patient has a copy of next infusion appointment and verbalizes understanding. All questions answered. documented in this encounter [facility] 11-11-2022 Miscellaneous Notes Addended by: IRMA VICK on: 11/12/2022 03:34 PM Modules accepted: Orders documented in this encounter [facility] 11-11-2022 Note Addended by: IRMA VICK on: 11/12/2022 03:34 PM Modules accepted: Orders [facility] 10-24-2022 Telephone encount er Note Pt called with ca 125 [facility] 10-24-2022 Telephone encount er Note ----- Message from JULIA Goldstein CNP sent at 10/24/2022 7:54 AM EDT ----- Hi, please call with normal CA-125, thanks ----- Message ----- From: Denis Richey MD Sent: 10/24/2022 6:16 AM EDT To: JULIA Ferrera CNP; # Plz callw ith ca 125 ----- Message ----- From: [facility] Chato Brandon Sent: 10/22/2022 2:11 AM EDT To: Denis Richey MD [facility] 10-24-2022 Miscellaneous Notes Formattin g of this note might be different from the original. Pt called with ca 125 ----- Message from JULIA Goldstein CNP sent at 10/24/2022 7:54 AM EDT ----- Hi, please call with normal CA-125, thanks ----- Message ----- From: Denis Richey MD Sent: 10/24/2022 6:16 AM EDT To: JULIA Ferrera CNP; # Plz callw ith ca 125 ----- Message ----- From: [employer] Sent: 10/22/2022 2:11 AM EDT To: Denis Richey MD documented in this encounter [facility] 10-21-2022 History of Presen t illness Narrative Patient arrived ambulatory for C10 of Trazimera. Patient saw MD prior to arrival. Patient has no complaints and verbalizes understanding of POC. PIV started and labs obtained. 1345 Patient tolerated infusion well and patient discharged home ambulatory. 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 HPI: Cary Swenson is a 71 y.o. she was diagnosed with a stage III C1 endometrial cancer in June 2020. She was treated with robotic hysterectomy BSO sentinel lymph node sampling followed by chemotherapy with carboplatinum and Taxol and Herceptin in [place]. However the patient developed a severe reaction after the first course. This was in early September. The patient decided not to pursue any further chemotherapy after that point. CT A/P/C 10/15 was NILESH 03/11/22 Biopsy performed in office. Final Diagnosis VAGINA, BIOPSY- VAGINAL MUCOSAL FRAGMENTS WITH INVOLVEMENT BY HIGH GRADE SEROUS CARCINOMA. 03/16/22 PET showed positive for carcinoma Pt cannot tolerate Taxol due to reaction-painful rash, tried steroids and Benadryl with no relief. Pt receiving Trastuzumab, Carboplatin, Abraxane, last dose 07/17 Patient was then started on Herceptin maintenance. ECHO 08/2022 was WNL. Patient is here today for maintenance Herceptin. She states she is tolerating it very well. Denies any cardiac issues. Is very active outside doing yard work and has not noticed any signs or symptoms of congestive heart failure. Denies any vaginal bleeding abdominal pain adenopathy or signs or symptoms of recurrent disease. She did have one episode a few nights ago where she had epigastric like heartburn type pain, this did eventually go away on its own. She denies any current angina, dyspnea on exertion or chest pain with exertion Past Medical History: Diagnosis Date Cancer (CMS/HCC) (HCC) Endometrial Osteoarthritis Osteopenia Past Surgical History: Procedure Laterality Date FRACTURE SURGERY Left 1973 ankle HEMORRHOID SURGERY KNEE SURGERY Right 1969 and 1970 OTHER SURGICAL HISTORY 07/16/2020 [facility] BSO LND; Dr. Denis Richey SINUS SURGERY 2006 Social History Socioeconomic History Marital status: Single Tobacco Use Smoking status: Never Smokeless tobacco: Never Substance and Sexual Activity Alcohol use: Yes Drug use: Never Current Outpatient Medications Medication Sig Dispense Refill ascorbic acid (Vitamin C) 500 mg chewable tablet Chew 500 mg daily. B Bzpxrzu-J-Uimahjy (B-COMPLEX/VITAMIN C, W/ CA, PO) Take by mouth. multivitamin with minerals (Cerovite) 18-400 mg-mcg tablet tablet Take 1 tablet by mouth daily. cholecalciferol (Vitamin D-3) 25 MCG (1000 UT) tablet Take 1,000 Units by mouth daily. dexAMETHasone (Decadron) 4 MG tablet Take 5 tablets po 12 hours and 6 hours prior to each chemo. 10 tablet 3 Docusate Sodium (DSS) 100 MG capsule Take 100 mg by mouth daily. ibuprofen 600 MG tablet Take 600 mg by mouth. ondansetron (Zofran) 8 MG tablet Take by mouth. prochlorperazine (Compazine) 10 MG tablet Take 1 tablet (10 mg) by mouth every 6 hours as needed for nausea or vomiting. 30 tablet 2 prochlorperazine (Compazine) 10 MG tablet Take 1 tablet (10 mg) by mouth every 6 hours as needed for nausea or vomiting. 30 tablet 2 silver sulfADIAZINE (Silvadene) 1 % cream Apply topically daily. To rash-type areas. 50 g 3 No current facility-administered medications for this visit. Facility-Administered Medications Ordered in Other Visits Medication Dose Route Frequency Provider Last Rate Last Admin sodium chloride 0.9 % infusion 5-250 mL/hr IntraVENous Once PRN Denis Richey MD sodium chloride 0.9 % infusion 5-250 mL/hr IntraVENous Once PRN Denis Richey MD trastuzumab-qyyp (Trazimera) 399 mg in sodium chloride 0.9 % 250 mL chemo IVPB 6 mg/kg (Treatment Plan Recorded) IntraVENous Once Denis Richey MD Review of Systems Cardiovascular: Negative. Gastrointestinal: Negative for abdominal distention and abdominal pain. Genitourinary: Negative for vaginal bleeding. Hematological: Negative for adenopathy. Paclitaxel and Levofloxacin BP (!) 172/82 Pulse 77 Ht 1.626 m (5' 4) Wt 68.5 kg (151 lb) BMI 25.92 kg/m Physical Exam Vitals and nursing note reviewed. Constitutional: Appearance: Normal appearance. Neurological: Mental Status: She is alert. Psychiatric: Mood and Affect: Mood normal. Behavior: Behavior normal. Assessment: Recurrent endometrial cancer currently on Herceptin maintenance. Tolerating it well. Plan: Chemotherapy labs have been checked, chemotherapy orders have been calculated signed and sent to the infusion center. We will continue Herceptin until evidence of disease progression or toxicity. We will plan on seeing the patient back every other cycle for physical exam and assessment. documented in this encounter [facility] 10-21-2022 Miscellaneous Notes Addended by: SILVANA HAMILTON on: 10/21/2022 03:26 PM Modules accepted: Orders documented in this encounter [facility] 10-21-2022 Note Addended by: SILVANA MERCER on: 10/21/2022 03:26 PM Modules accepted: Orders [facility] 10-21-2022 Note Addended by: SILVANA MERCER on: 10/21/2022 03:26 PM Modules accepted: Orders [facility] 09-09-2022 Telephone encount er Note Pt aware of PET results, continue maint Herceptin. Pt verbalized understanding, no further questions. [facility] 09-09-2022 Miscellaneous Notes Formattin g of this note might be different from the original. Pt aware of PET results, continue maint Herceptin. Pt verbalized understanding, no further questions. documented in this encounter [facility] 09-08-2022 History of Presen t illness Narrative Patient arrives ambulatory for cycle 8 of trazimera. Patient denies any new or worsening complaints. Notes improvement to vision. PIV inserted, and labs collected. CBC, CMP, and CA125 obtained and sent to [facility]. No need to wait for results. Plan of care discussed. Denies any needs. 1451: Tolerated well. No signs of reaction. Verbalized understanding of discharge and follow up care. Discharged home ambulatory. documented in this encounter [facility] 09-08-2022 History of Presen t illness Narrative CC: Here today for Herceptin HPI: Cary Swenson is a 71 y.o. 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 She was treated with robotic hysterectomy BSO sentinel lymph node sampling followed by chemotherapy with carboplatinum and Taxol and Herceptin in [place]. However the patient developed a severe reaction after the first course. This was in early September. The patient decided not to pursue any further chemotherapy after that point. CA 125 10.6 10/15. [address] A/P/C 10/15 was NILESH CA125 in October 2021 was 13.8 03/11/22 Biopsy performed in office. Final Diagnosis VAGINA, BIOPSY- VAGINAL MUCOSAL FRAGMENTS WITH INVOLVEMENT BY HIGH GRADE SEROUS CARCINOMA. 03/16/22 PET showed positive for carcinoma Pt cannot tolerate Taxol due to reaction-painful rash, tried steroids and Benadryl with no relief. Pt received Trastuzumab, Carboplatin, Abraxane, last dose 07/17 Interval History Pt receiving maintenance Trastuzumab today is cycle 8. Performance status 0. She denies any grade 3 or 4 toxicities. She is tolerating chemotherapy well. She does not have: Anorexia, Fever, Chills, Sweats, Weight Loss, Nausea, Diarrhea, Constipation, Weakness, Pain, Myalgias, Edema, Dizziness, chest pain/pressure. Denies abdominal pain, abdominal distention, vaginal bleeding or discharge. Denies Anxiety and Depression. Does have occasional SOB with exertion, not worsening. Fatigue has improved. Neuropathy in fingers and in feet up to her ankles, has been improving since chemotherapy ended. No tripping or falling. No pain, but feels numb and heavy. Taking Vitamin B complex, ALA. Receives massages through [facility]. Declines Neurontin at this time. Patient reports she is doing well emotionally, has a great support system at home. Is not interested in Dr. Hua at this time. 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 Single mom of 4. 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 Has many grand children. Past Medical History: Diagnosis Date Cancer (CMS/HCC) ([facility]) Endometrial Osteoarthritis Osteopenia Social History Socioeconomic History Marital status: Single Tobacco Use Smoking status: Never Smokeless tobacco: Never Substance and Sexual Activity Alcohol use: Yes Drug use: Never Past Surgical History: Procedure Laterality Date FRACTURE SURGERY Left 1973 ankle HEMORRHOID SURGERY KNEE SURGERY Right 1969 and 1970 OTHER SURGICAL HISTORY 07/16/2020 [facility] BSO LND; Dr. Denis Richey SINUS SURGERY 2006 Review of Systems Constitutional: Negative for appetite change and unexpected weight change. Genitourinary: Negative for pelvic pain and vaginal bleeding. Neurological: Chemo induced neuropathy Paclitaxel and Levofloxacin Current Outpatient Medications Medication Sig Dispense Refill ascorbic acid (Vitamin C) 500 mg chewable tablet Chew 500 mg daily. B Mprrsew-S-Embfttm (B-COMPLEX/VITAMIN C, W/ CA, PO) Take by mouth. multivitamin with minerals (Cerovite) 18-400 mg-mcg tablet tablet Take 1 tablet by mouth daily. cholecalciferol (Vitamin D-3) 25 MCG (1000 UT) tablet Take 1,000 Units by mouth daily. dexAMETHasone (Decadron) 4 MG tablet Take 5 tablets po 12 hours and 6 hours prior to each chemo. 10 tablet 3 Docusate Sodium (DSS) 100 MG capsule Take 100 mg by mouth daily. ibuprofen 600 MG tablet Take 600 mg by mouth. ondansetron (Zofran) 8 MG tablet Take by mouth. prochlorperazine (Compazine) 10 MG tablet Take 1 tablet (10 mg) by mouth every 6 hours as needed for nausea or vomiting. 30 tablet 2 prochlorperazine (Compazine) 10 MG tablet Take 1 tablet (10 mg) by mouth every 6 hours as needed for nausea or vomiting. 30 tablet 2 silver sulfADIAZINE (Silvadene) 1 % cream Apply topically daily. To rash-type areas. 50 g 3 No current facility-administered medications for this visit. BP (!) 177/81 Pulse 71 Ht 1.626 m (5' 4) Wt 68.9 kg (152 lb) BMI 26.09 kg/m Physical Exam Vitals and nursing note reviewed. Exam conducted with a business services vice president present. Constitutional: Appearance: Normal appearance. Abdominal: General: Abdomen is flat. Palpations: Abdomen is soft. Genitourinary: General: Normal vulva. Labia: Right: No lesion. Left: No lesion. Urethra: No urethral lesion. Vagina: Normal. No bleeding or lesions. Uterus: Absent. Comments: Deferred. Lymphadenopathy: Upper Body: Right upper body: No supraclavicular adenopathy. Left upper body: No supraclavicular adenopathy. Lower Body: No right inguinal adenopathy. No left inguinal adenopathy. Skin: General: Skin is warm and dry. Neurological: Mental Status: She is alert. Psychiatric: Mood and Affect: Mood normal. Behavior: Behavior normal. Assessment: Pt tolerating treatment well. PET scan pending ECHO 08/26/22 65% ECHO every 3 months Continue maintenance Trastuzumab Plan: Per Dr. Richey (08/19/22): Discussed staying on Herceptin until evidence of disease progression or evidence of toxicity. documented in this encounter [facility] 08-19-2022 History of Presen t illness Narrative Arrived ambulatory from for maintenance trazimera. Labs collected 08/18. Patient continues with neuropathy in feet and legs. Notes legs do feel heavy when walking. Dr. Richey aware. PIV placed with ease, POC reviewed. 1556-Tolerated infusion well. PIV dcd, gauze and coban to site. Calendar provided to patient and appts adjusted to patient's preference for same day appts. Patient discharged ambulatory to home. documented in this encounter [facility] 07-29-2022 History of Presen t illness Narrative Arrived ambulatory from for cycle 6 Abraxane/Trazimera/Carboplatin. Reports neuropathy in feet/legs did increase after last cycle. Reports numbness as well as feeling that she is walking on rocks. Can be painful/uncomfortable at times. Also reports bone pain from Neulasta-took claritin and motrin, does have oxycodone at home. PIV placed with ease. POC reviewed. 1630-Tolerated infusions well. PIV dcd, gauze and coban to site. Neulasta OBI placed on R arm and device activated. Green light flashing. Reviewed signal lights and administration times. Patient aware of next appts, pt discharged ambulatory to home. documented in this encounter [facility] 07-29-2022 History of Presen t illness Narrative @LOGOIMAGE@ CC: here for Abraxane, Carboplatin and Trazimera every 21 days HPI: Cary Swenson is a 71 y.o. 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 She was treated with robotic hysterectomy BSO sentinel lymph node sampling followed by chemotherapy with carboplatinum and Taxol and Herceptin in [place]. However the patient developed a severe reaction after the first course. This was in early September. The patient decided not to pursue any further chemotherapy after that point. CA 125 10.6 10/[address] A/P/C 10/15 was NILESH CA125 in October 2021 was 13.8 03/11/22 Biopsy performed in office. Final Diagnosis VAGINA, BIOPSY- VAGINAL MUCOSAL FRAGMENTS WITH INVOLVEMENT BY HIGH GRADE SEROUS CARCINOMA. 03/16/22 PET showed positive for carcinoma Pt cannot tolerate Taxol due to reaction-painful rash, tried steroids and Benadryl with no relief. Interval History Pt receiving Trastuzumab, Carboplatin, Abraxane, today is cycle 6 She denies any grade 3 or 4 toxicities. She is tolerating chemotherapy well. She does not have: Anorexia, Fever, Chills, Sweats, Weight Loss, Nausea, Diarrhea, Constipation, Weakness, Pain, Myalgias, Edema, Dizziness, chest pain/pressure. Denies abdominal pain, abdominal distention, vaginal bleeding or discharge. Denies Anxiety and Depression. Does have occasional SOB with exertion, not worsening. Fatigue lasted longer after cycle 5 Neuropathy in fingers and in feet up to her ankles. Has gotten worse since last cycle. No tripping or falling. No pain, but feels numb and heavy. Taking Vitamin B complex, ALA. Will dose reduce Abraxane dose by 25% Patient reports she is doing well emotionally, has a great support system at home. Is not interested in Dr. Hua at this time. Patient had bone pain with Neulasta injection last cycle. Encourage patient okay to take oxycodone as prescribed for bone pain. 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 Has many grand children. Past Medical History: Diagnosis Date Cancer ([facility]) (HCC) Endometrial Osteoarthritis Osteopenia Social History Socioeconomic History Marital status: Single Tobacco Use Smoking status: Never Smokeless tobacco: Never Substance and Sexual Activity Alcohol use: Yes Drug use: Never Past Surgical History: Procedure Laterality Date FRACTURE SURGERY Left 1973 ankle HEMORRHOID SURGERY KNEE SURGERY Right 1969 and 1970 OTHER SURGICAL HISTORY 07/16/2020 [facility] BSO LND; Dr. Denis Richey SINUS SURGERY 2007 Review of Systems Paclitaxel and Levofloxacin Current Outpatient Medications Medication Sig Dispense Refill ascorbic acid (Vitamin C) 500 mg chewable tablet Chew 500 mg daily. B Wzzxasy-X-Ftendqp (B-COMPLEX/VITAMIN C, W/ CA, PO) Take by mouth. multivitamin with minerals (Cerovite) 18-400 mg-mcg tablet tablet Take 1 tablet by mouth daily. ondansetron (Zofran) 8 MG tablet Take by mouth. prochlorperazine (Compazine) 10 MG tablet Take 1 tablet (10 mg) by mouth every 6 hours as needed for nausea or vomiting. 30 tablet 2 cholecalciferol (Vitamin D-3) 25 MCG (1000 UT) tablet Take 1,000 Units by mouth daily. dexAMETHasone (Decadron) 4 MG tablet Take 5 tablets po 12 hours and 6 hours prior to each chemo. 10 tablet 3 Docusate Sodium (DSS) 100 MG capsule Take 100 mg by mouth daily. ibuprofen 600 MG tablet Take 600 mg by mouth. prochlorperazine (Compazine) 10 MG tablet Take 1 tablet (10 mg) by mouth every 6 hours as needed for nausea or vomiting. 30 tablet 2 silver sulfADIAZINE (Silvadene) 1 % cream Apply topically daily. To rash-type areas. 50 g 3 No current facility-administered medications for this visit. BP (!) 155/81 Pulse 74 Ht 1.626 m (5' 4) Wt 71.7 kg (158 lb) BMI 27.12 kg/m Physical Exam Constitutional: Appearance: Normal appearance. HENT: Head: Normocephalic. Cardiovascular: Rate and Rhythm: Normal rate and regular rhythm. Pulmonary: Effort: Pulmonary effort is normal. Breath sounds: Normal breath sounds. Abdominal: Comments: Soft, nondistended. Genitourinary: Comments: Deferred. Skin: General: Skin is warm and dry. Neurological: General: No focal deficit present. Mental Status: She is alert and oriented to person, place, and time. Psychiatric: Mood and Affect: Mood normal. Behavior: Behavior normal. Assessment: Stage III C1 endometrial cancer serous. Continue trastuzumab, carboplatinum, Abraxane. Not taking Decadron Prep, did well with most recent chemotherapy infusion. Will keep IV Decadron premed the same. ECHO every 3 months. Most recent ECHO 06/30/22 65% Continue vitamin B complex, ALA. After 6 cycles of chemo, pt to continue Herceptin maint every 3 weeks. We will decrease Abraxane infusion today by 25% due to increased neuropathy in feet. 03/11/22 Dr Mcfadden's note: PET scan has been ordered discussed findings with patient. Discussed treatment options based upon PET scan. Patient is relatively chemotherapy na ve. I did discuss sending her back to the medical oncologist in [place] to continue chemotherapy with carboplatinum and Taxol. She may also require local radiation therapy after chemotherapy. All the patient's questions were answered to the best of my ability. Total time spent in counseling patient, discussing evidence of recurrent cancer and treatment options was 25 minutes documented in this encounter [facility] [place] 07-08-2022 History of Presen t illness Narrative @LOGOIMAGE@ CC: here for Abraxane, Carboplatin and Trazimera every 21 days HPI: Cary Swenson is a 71 y.o. 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 She was treated with robotic hysterectomy BSO sentinel lymph node sampling followed by chemotherapy with carboplatinum and Taxol and Herceptin in [place]. However the patient developed a severe reaction after the first course. This was in early September. The patient decided not to pursue any further chemotherapy after that point. CA 125 10.6 10/[address]. [address] A/P/C 10/15 was NILESH CA125 in October 2021 was 13.8 03/11/22 Biopsy performed in office. Final Diagnosis VAGINA, BIOPSY- VAGINAL MUCOSAL FRAGMENTS WITH INVOLVEMENT BY HIGH GRADE SEROUS CARCINOMA. 03/16/22 PET showed positive for carcinoma Pt cannot tolerate Taxol due to reaction-painful rash, tried steroids and Benadryl with no relief. Interval History Pt receiving Trastuzumab, Carboplatin, Abraxane, today is cycle 5. She denies any grade 3 or 4 toxicities. She is tolerating chemotherapy well. She does not have: Anorexia, Fever, Chills, Sweats, Weight Loss, Nausea, Diarrhea, Constipation, Weakness, Pain, Myalgias, Edema, Dizziness, chest pain/pressure. Denies abdominal pain, abdominal distention, vaginal bleeding or discharge. Denies Anxiety and Depression. Does have occasional SOB with exertion, not worsening. Fatigue lasted longer after cycle 4. Pt reports hematuria that she experienced around last OV has now completely resolved. Pt reports abd bloating that she experienced around last OV is improving. She was recently admitted to the hospital for temp 100.7 and not feeling well. Per pt, all tests came back negative. She received IV antibiotics, was sent home and completed antibiotics of Cefdinir yesterday. Pt reports she feels fine today, no signs of infection, denies fever, chills. Neuropathy in fingers only, neuropathy in feet up to her ankles, unchanged, not worsening. Taking Vitamin B complex, ALA. Patient reports she is doing well emotionally, has a great support system at home. Is not interested in Dr. Hua at this time. 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 Has many grand children. Is here with daughter today. Past Medical History: Diagnosis Date Cancer (CMS/[facility]) ([facility]) Endometrial Osteoarthritis Osteopenia Social History Socioeconomic History Marital status: Single Tobacco Use Smoking status: Never Smokeless tobacco: Never Substance and Sexual Activity Alcohol use: Yes Drug use: Never Past Surgical History: Procedure Laterality Date FRACTURE SURGERY Left 1973 ankle HEMORRHOID SURGERY KNEE SURGERY Right 1969 and 1970 OTHER SURGICAL HISTORY 07/16/2020 [facility] BSO LND; Dr. Denis Richey SINUS SURGERY 2007 Review of Systems Paclitaxel and Levofloxacin Current Outpatient Medications Medication Sig Dispense Refill ascorbic acid (Vitamin C) 500 mg chewable tablet Chew 500 mg daily. B Ollndhn-L-Fiempgx (B-COMPLEX/VITAMIN C, W/ CA, PO) Take by mouth. cholecalciferol (Vitamin D-3) 25 MCG (1000 UT) tablet Take 1,000 Units by mouth daily. dexAMETHasone (Decadron) 4 MG tablet Take 5 tablets po 12 hours and 6 hours prior to each chemo. 10 tablet 3 Docusate Sodium (DSS) 100 MG capsule Take 100 mg by mouth daily. ibuprofen 600 MG tablet Take 600 mg by mouth. multivitamin with minerals (Cerovite) 18-400 mg-mcg tablet tablet Take 1 tablet by mouth daily. ondansetron (Zofran) 8 MG tablet Take by mouth. prochlorperazine (Compazine) 10 MG tablet Take 1 tablet (10 mg) by mouth every 6 hours as needed for nausea or vomiting. 30 tablet 2 prochlorperazine (Compazine) 10 MG tablet Take 1 tablet (10 mg) by mouth every 6 hours as needed for nausea or vomiting. 30 tablet 2 silver sulfADIAZINE (Silvadene) 1 % cream Apply topically daily. To rash-type areas. 50 g 3 No current facility-administered medications for this visit. BP (!) 173/82 Pulse 77 Ht 1.626 m (5' 4) Wt 68 kg (150 lb) BMI 25.75 kg/m Physical Exam Constitutional: Appearance: Normal appearance. HENT: Head: Normocephalic. Cardiovascular: Rate and Rhythm: Normal rate and regular rhythm. Pulmonary: Effort: Pulmonary effort is normal. Breath sounds: Normal breath sounds. Abdominal: Comments: Soft, nondistended. Genitourinary: Comments: Deferred. Skin: General: Skin is warm and dry. Neurological: General: No focal deficit present. Mental Status: She is alert and oriented to person, place, and time. Psychiatric: Mood and Affect: Mood normal. Behavior: Behavior normal. Assessment: Stage III C1 endometrial cancer serous. Continue trastuzumab, carboplatinum, Abraxane. Not taking Decadron Prep, did well with most recent chemotherapy infusion. Will keep IV Decadron premed the same. ECHO every 3 months. Most recent ECHO 06/30/22 65% Continue vitamin B complex, ALA. After 6 cycles of chemo, pt to continue Herceptin maint every 3 weeks. 03/11/22 Dr Mcfadden's note: PET scan has been ordered discussed findings with patient. Discussed treatment options based upon PET scan. Patient is relatively chemotherapy na ve. I did discuss sending her back to the medical oncologist in [place] to continue chemotherapy with carboplatinum and Taxol. She may also require local radiation therapy after chemotherapy. All the patient's questions were answered to the best of my ability. Total time spent in counseling patient, discussing evidence of recurrent cancer and treatment options was 25 minutes documented in this encounter [facility] 07-02-2022 Discharge summary Note Date/Time July 02, 2022 8:57 am [facility] Medical Records Department [address] [place] [address] Discharge Summary 07/02/22 0854 MR#: [id number] Acct: [id number] Name: CARY SWENSON Rep #:[id number] : 1950 71 From: Pilo Harrell MD PCP: Dr. Jose L Wiseman MD Status:A DM MARIA LUISA [place] [facility] [id number] Providers Date of Admission: 07/01/22 Date of Discharge: 07/02/22 Primary Care Physician: Dr. Jose L Wiseman MD Reason For Visit: NEUTROPENIC FEVER Diagnosis Discharge Diagnosis (1) Fever and neutropenia: Status: Acute Code(s): D70.9 - Neutropenia, unspecified; R50.81 - Fever presenting with conditions classified elsewhere Medications at Discharge Home Medications cholecalciferol (vitamin D3) 25 mcg (1,000 unit) capsule 25 mcg PO DAILY 06/19/20 multivitamin 1 tablet PO DAILY 06/19/20 B-complex with vitamin C 1 tab PO DAILY 01/07/21 ascorbic acid (vitamin C) 500 mg tablet (Vitamin C) 500 mg PO DAILY 01/07/21 alpha lipoic acid 200 mg capsule 200 mg PO DAILY SUPPLEMENT 07/01/22 cefdinir 300 mg capsule 300 mg PO BID #10 caps 07/02/22 Hospital Course Summary of Care Provided Minutes Spent on Discharge: 35 Hospital Course: Patient is a 71-year-old lady with history of endometrial cancer currently undergoing chemo presented with fever and body aches 1. Fever in a patient undergoing chemotherapy. Patient was placed on a monitored bed cultures came back negative. An order was given for patient to undergo viral respiratory panel this could not be performed due to lack of availability so for 01/13/2023. Patient requested to be discharged home. She was instructed to call her oncologist for follow-up 2. Endometrial CA ? Status post hysterectomy currently undergoing chemo 3. Allergic rhinitis ? Stable 4. Chemo induced pancytopenia ? Did monitor patient CBC with differential 5. DVT prophylaxis ? Bilateral SCDs Physical Exam Narrative GENERAL: cooperative HEENT: Atraumatic; normocephalic EYES; Anicteric, Normal Conjunctiva NECK; supple, normal thyroid, RESPIRATORY: Diminished to auscultation CARDIOVASCULAR: Regular S1 S2, GI: soft, normoactive bowel sounds, : No Renal angle tenderness; EXTREMITIES: No edema, no clubbing, MUSCULOSKELETAL: no muscle wasting NEURO: Awake; no lateralizing signs. SKIN: No Rash PSYCH; Flat affect Weight / BMI Weight Weight: 68.3 kg Body Mass Index (BMI) 25.7 ABG / Lab / Microbiology Data Result Diagrams: 07/02/22 06:00 07/02/22 06:00 Laboratory: Laboratory Results - last 24 hr 07/01/22 12:45: WBC 1.9 L, RBC 2.33 L, Hgb 8.0 L, Hct 24.5 L, MCV 105.2 H, MCH 34.3 H, MCHC 32.7, RDW Std Deviation 59.7 H, RDW Coeff of [place] 15.8 H, Plt Count 100 L, MPV 10.3, Immature Gran % (Auto) 0.000, Neut % (Auto) 16.0 L, Lymph % (Auto) 50.3 H, [place] % (Auto) 33.2 H, Eos % (Auto) 0.0, Baso % (Auto) 0.5, Absolute Neuts (auto) 0.3 L, Absolute Lymphs (auto) 0.97, Nucleated RBC % 0, Differential Comment SCANNED 07/01/22 12:45: D-Dimer Quant (PE/DVT) 1.19 H* 07/01/22 12:45: Sodium 138, Potassium 3.8, Chloride 105, Carbon Dioxide 28.0, Anion Gap 5, BUN 12, Creatinine 0.76, Estim Creat Clear Calc 45.85, Est GFR (MDRD) Af Amer 97, Est GFR (MDRD) Non-Af 80, BUN/Creatinine Ratio 15.8, Glucose 97, Calcium 8.4 L, Total Bilirubin 0.30, AST 22, ALT 22, Alkaline Phosphatase 78, Total Protein 6.9, Albumin 3.4, Globulin 3.5, Albumin/Globulin Ratio 1.0 07/01/22 12:45: Lactic Acid 0.8 07/01/22 12:45: Phosphorus 3.2, Magnesium 2.0 07/01/22 13:55: Urine Color Yellow, Urine Clarity Clear, Urine pH 8.0, Ur Specific [place] 1.010, Urine Protein Negative, Urine Glucose (UA) Normal, UrineKetones Negative, Urine Occult Blood Negative, Urine Nitrite Negative, Urine Bilirubin Negative, Urine Urobilinogen Normal, Ur Leukocyte Esterase Negative, Urine RBC 0 SEEN, Urine WBC 0 SEEN, Ur Squamous Epith Cells 0 SEEN, Urine Bacteria 0 SEEN, Urine Mucus 0 SEEN 07/01/22 19:25: COVID-19 (NICOLE) Not Detected 07/02/22 06:00: WBC 3.7 L, RBC 2.27 L, Hgb 8.0 L, Hct 23.9 L, MCV 105.3 H, MCH 35.2 H, MCHC 33.5, RDW Std Deviation 62.1 H, RDW Coeff of [place] 16.1 H, Plt Count 92 L, MPV 10.1, Immature Gran % (Auto) 0.300, Neut % (Auto) 51.8, Lymph % (Auto)30.4, [place] % (Auto) 16.9 H, Eos % (Auto) 0.3, Baso % (Auto) 0.3, Absolute Neuts (auto) 1.9 L, Absolute Lymphs (auto) 1.13, Nucleated RBC % 0 07/02/22 06:00: Sodium 139, Potassium 3.6, Chloride 110 H, Carbon Dioxide 26.0, Anion Gap 3 L, BUN 9, Creatinine 0.65, Estim Creat Clear Calc 45.85, Est GFR (MDRD) Af Amer 117, Est GFR (MDRD) Non-Af 96, BUN/Creatinine Ratio 13.9, [id number], Calcium 8.1 L, Total Bilirubin 0.30, AST 17, ALT 19, Alkaline Phosphatase 68, Total Protein 6.2 L, Albumin 3.0 L, Globulin 3.2, Albumin/Globulin Ratio 0.9 Microbiology: Microbiology 07/01/22 13:55 Urine, Clean Catch Urine Culture - Preliminary Culture exhibits no growth. 07/01/22 12:57 Nasal Secretion SARS-CoV-2 & FLU Antigen (Rapid) - Final 07/01/22 12:30 Interface Orders Group A Streptococcus Rapid Screen - Preliminary Radiography Diagnostic Testing: Radiology Impression Chest X-Ray 07/01/22 12:59 IMPRESSION: Hyperinflation. The lungs are clear. Electronically Signed: Russ Lion MD at 13:10 EDT , Chest CTA 07/01/22 13:47 IMPRESSION: Normal CTA chest examination, without a demonstrated pulmonary embolism or arterial dissection. Electronically Signed: Russ Lion MD at 14:33 EDT , D/C Instructions Discharge Diet: No restrictions Discharge Activity: Return to Normal Activity Call your doctor if you observe: Fever of 101 or Higher, Shortness of breath, Fainting spells and Chest pain Meaningful Use Info Meaningful Use Diagnoses (Choose all that apply): None applicable Discharge Plan Admission Admit Date/Time: 07/01/22 15:40 Attending Provider: Pilo Harrell Primary Care Provider: Jose L Wiseman Consulting Providers: Marisa Hay Discharge Orders/Prescriptions Prescriptions: New cefdinir 300 mg capsule 300 mg PO BID Qty: 10 0RF Continued multivitamin Tablet 1 tablet PO DAILY cholecalciferol (vitamin D3) 25 mcg (1,000 unit) capsule 25 mcg PO DAILY ascorbic acid (vitamin C) [Vitamin C] 500 mg Tablet 500 mg PO DAILY B-complex with vitamin C Tablet 1 tab PO DAILY alpha lipoic acid 200 mg Capsule 200 mg PO DAILY Referrals / Follow Up: Jose L Wiseman MD [Primary Care Provider] - Disposition Disposition (needs filled in before D/C Order can be placed): Home, Self Care Charges/Coding Visit Charges Inpatient E&M: 12472 Disch Hosp >30min 07/02/22 0859 <Electronically signed by Pilo Harrell MD> Cosigner Signature (if applicable): CC: Dr. Pilo Harrell MD; Dr. Jose L Wiseman MD~ Signed [facility] Work Phone: 1(122) 538-471504-07-2023 History and physical note Author Dr. Hay [facility] July 01, 2022 7:55pm Note Date/Time July 01, 2022 3:40 pm [facility] Medical Records Department [address] [place] [address] History & Physical Exam 07/01/22 1539 MR#: [id number] Acct: [id number] Name: CARY SWENSON Rep #:[id number] : 1950 71 From: Marisa Hay MD PCP: Dr. Jose L Wiseman MD Status:A DM [facility] Location: [place] [address]-1 HPI - General General Date of Admission: 07/01/22 Date of Service: 07/01/22 Chief Complaint: Neutropenic fever, unclear source. HPI Narrative The patient is a 71 y/o F w/ PMHx: Allergic rhinitis, Endometrial/Uterine Cancerwith ongoing chemotherapy last ~ 2 weeks prior who presents to the [facility] ED on 07/01/22 with history of onset fever on day of presentation with mild body aches as well as cervical lymphadenopathy and mild dyspnea but no cough with no recentill contacts and no associated nausea, emesis or diarrhea or urinary symptoms however given ongoing chemotherapy prompted ED evaluation. Patient does report that her 5-year-old granddaughter did stay with her within the last 5 to 7 days but she did not have any respiratory type symptoms or any illness at that time but this is her only contact of any concern. Work-up in the ED included T98.3, heart rate 77, BP 149/78, respiratory rate 14, 97% on room air CBC with WBC 1.9,hemoglobin 8.0, MCV 105.2, platelet 100 with neutropenia, D-dimer 1.19, CMP not marked appearing, lactic acid 0.8, urinalysis unremarkable, chest x-ray with hyperinflation with no acute cardiopulmonary findings, CTPA with no demonstratedPE or arterial dissection with no acute cardiopulmonary findings, negative rapidstrep with confirmatory culture pending and requested evaluation, blood culture x2 pending per ED, urine culture pending per ED, negative SARS COVID and influenza antigen. In the ED patient administered IV zosyn empirically. Patientin the ED very reticent to stay therefore several attempts made and eventually did contact patient's oncology nurse and reviewed her case who agreed that she should be admitted therefore this was rediscussed with patient and she was now amenable. [facility] Medical History Arthritis Cancer Cancer of endometrium Cardiology follow-up encounter Hemorrhoids History of fracture of ankle Hx of echocardiogram Non-smoker Osteoarthritis Osteopenia Port-A-Cath in place Post-menopausal bleeding Regional lymph node metastasis present Wears glasses Home Medications cholecalciferol (vitamin D3) 25 mcg (1,000 unit) capsule 25 mcg PO DAILY 06/19/20 [History Last Taken 06/30/22] multivitamin 1 tablet PO DAILY 06/19/20 [History Last Taken 06/30/22] B-complex with vitamin C 1 tab PO DAILY 01/07/21 [History Last Taken 06/30/22] ascorbic acid (vitamin C) 500 mg tablet (Vitamin C) 500 mg PO DAILY 01/07/21 [History Last Taken 06/30/22] alpha lipoic acid 200 mg capsule 200 mg PO DAILY SUPPLEMENT 07/01/22 [History Last Taken 06/30/22] Allergy/AdvReac Type Severity Reaction Status Date / Time carboplatin Allergy Severe Rash Verified 07/01/22 12:05 hyaluronidase Allergy Severe Rash Verified 07/01/22 12:05 [From Herceptin Hylecta] paclitaxel [From Taxol] Allergy Severe Rash Verified 07/01/22 12:05 trastuzumab-[id number] Allergy Severe Rash Verified 07/01/22 12:05 [From Herceptin Hylecta] levofloxacin [From Levaquin] AdvReac Severe abdominal Verified 07/01/22 12:05 pain Family History Father Cancer lung Sister Depression Thyroid disorder Hypertension Skin cancer Diabetes Grandmother Osteoporosis Mother Hypertension Skin cancer Aunt Cancer cervical cancer Other Arthritis Surgical History History of ankle surgery History of colonoscopy (2003) History of knee surgery History of sinus surgery Hx of total hysterectomy S/P hemorrhoidectomy Social History Smoking Status: Never smoker second hand exposure: No alcohol intake: never caffeine: Yes what type of physical activity do you participate in: walking frequency: 3-4 times per week seatbelt use: always do you feel safe at home: Yes additional social history: [employer] [place] Derm ROS ROS Narrative Admission Review of Systems: CONSTITUTIONAL: No weight loss, + fever, chills, weakness or fatigue. HEENT: + mild rhinorrhea. Eyes: No visual loss, blurred vision, double vision or yellow sclerae. Ears, Nose, Throat: No hearing loss, sneezing or sore throat. SKIN: No rash or itching, lesions, wounds. CARDIOVASCULAR: No chest pain, chest pressure or chest discomfort, palpitations,edema, orthopnea, syncopal events. RESPIRATORY: No shortness of breath, cough or sputum, wheezing, hemoptysis. GASTROINTESTINAL: + anorexia, No nausea, vomiting or diarrhea, abdominal pain, melena, BRBPR. GENITOURINARY: No dysuria, frequency, urgency or retention. NEUROLOGICAL: No headache, dizziness, syncope, paralysis, ataxia, numbness or tingling in the extremities, focal weakness, change in bowel or bladder control,seizure. MUSCULOSKELETAL: + muscle, back pain, joint pain or stiffness. HEMATOLOGIC: + anemia, bleeding or bruising. LYMPHATICS: No enlarged nodes. No history of splenectomy. PSYCHIATRIC: No history of depression or anxiety. ENDOCRINOLOGIC: No reports of sweating, cold or heat intolerance. No polyuria orpolydipsia. ALLERGIES: + history of rhinitis. Vital Signs Vital Signs Vital Signs: 07/01/22 11:57 07/01/22 12:04 07/01/22 12:06 Temperature 98.4 F 98.5 F Temperature Source Oral Oral Pulse Rate 98 Respiratory Rate 20 H Respiratory Effort Short of Breath Respiratory Pattern Normal Blood Pressure 181/78 H Blood Pressure Mean 112 Pulse Ox 98 Oxygen Delivery Method Room Air 07/01/22 12:12 07/01/22 13:23 07/01/22 13:33 Temperature 98.5 F 98.3 F Temperature Source Oral Oral Pulse Rate 78 79 73 Respiratory Rate 17 18 13 Respiratory Effort Respiratory Pattern Blood Pressure 150/77 H 145/69 H 135/69 H Blood Pressure Mean 101 94 91 Pulse Ox 96 99 99 Oxygen Delivery Method Room Air Room Air Room Air 07/01/22 14:01 07/01/22 14:30 07/01/22 15:07 Temperature 98.3 F Temperature Source Oral Pulse Rate 76 78 77 Respiratory Rate 15 17 15 Respiratory Effort Respiratory Pattern Blood Pressure 149/74 H 158/79 H 149/78 H Blood Pressure Mean 99 105 101 Pulse Ox 100 98 98 Oxygen Delivery Method Room Air Room Air Room Air 07/01/22 15:08 Temperature 98.3 F Temperature Source Oral Pulse Rate 77 Respiratory Rate 14 Respiratory Effort Respiratory Pattern Blood Pressure 149/78 H Blood Pressure Mean 101 Pulse Ox 97 Oxygen Delivery Method Room Air Weight Weight: 155 lb Body Mass Index (BMI) 26.6 Physical Exam Narrative Physical Examination: General: Awake, alert, oriented x 3 and cooperative, seated upright in the ED bed in no apparent distress. Skin: Normal color, normal turgor, no icterus, no cyanosis except occasional staged ecchymoses. HEENT: AT/NC, EOMI, PERRLA, MMM, no carotid bruits or JVD noted. Lungs: Diminished, greater bases, appropriate effort, no rales, ronchi or wheezing. Heart: Currently regular rate and rhythm; no gallop, rub audible. Abdomen: Soft, NTTP, ND, normal BS, no obvious evidence of HSM. Extremities: No cyanosis, clubbing, or edema. Neurological: Patient awake, alert, oriented as noted, cognitive function intact; pupils equally reactive to light and accommodation, cranial nerves II-XII grossly normal, moving all 4 extremities, no focal deficits, strength mildlyto moderately globally decreased secondary to acute presentation. Psychiatric: Affect appears fatigued otherwise normal, no acute evidence of depressive or anxiety feelings. Results Lab / Micro Data Result Diagrams: 07/01/22 12:45 07/01/22 12:45 Labs: Laboratory Results - last 24 hr 07/01/22 12:45: WBC 1.9 L, RBC 2.33 L, Hgb 8.0 L, Hct 24.5 L, MCV 105.2 H, MCH 34.3 H, MCHC 32.7, RDW Std Deviation 59.7 H, RDW Coeff of [place] 15.8 H, Plt Count 100 L, MPV 10.3, Immature Gran % (Auto) 0.000, Neut % (Auto) 16.0 L, Lymph % (Auto) 50.3 H, [place] % (Auto) 33.2 H, Eos % (Auto) 0.0, Baso % (Auto) 0.5, Absolute Neuts (auto) 0.3 L, Absolute Lymphs (auto) 0.97, Nucleated RBC % 0, Differential Comment SCANNED 07/01/22 12:45: D-Dimer Quant (PE/DVT) 1.19 H* 07/01/22 12:45: Sodium 138, Potassium 3.8, Chloride 105, Carbon Dioxide 28.0, Anion Gap 5, BUN 12, Creatinine 0.76, Estim Creat Clear Calc 45.85, Est GFR (MDRD) Af Amer 97, Est GFR (MDRD) Non-Af 80, BUN/Creatinine Ratio 15.8, Glucose 97, Calcium 8.4 L, Total Bilirubin 0.30, AST 22, ALT 22, Alkaline Phosphatase 78, Total Protein 6.9, Albumin 3.4, Globulin 3.5, Albumin/Globulin Ratio 1.0 07/01/22 12:45: Lactic Acid 0.8 07/01/22 13:55: Urine Color Yellow, Urine Clarity Clear, Urine pH 8.0, Ur Specific [place] 1.010, Urine Protein Negative, Urine Glucose (UA) Normal, UrineKetones Negative, Urine Occult Blood Negative, Urine Nitrite Negative, Urine Bilirubin Negative, Urine Urobilinogen Normal, Ur Leukocyte Esterase Negative, Urine RBC 0 SEEN, Urine WBC 0 SEEN, Ur Squamous Epith Cells 0 SEEN, Urine Bacteria 0 SEEN, Urine Mucus 0 SEEN Micro: Microbiology 07/01/22 12:57 Nasal Secretion SARS-CoV-2 & FLU Antigen (Rapid) - Final 07/01/22 12:30 Interface Orders Group A Streptococcus Rapid Screen - Preliminary Radiology Impression Chest X-Ray 07/01/22 12:59 IMPRESSION: Hyperinflation. The lungs are clear. Electronically Signed: Russ Lion MD at 13:10 EDT , Chest CTA 07/01/22 13:47 IMPRESSION: Normal CTA chest examination, without a demonstrated pulmonary embolism or arterial dissection. Electronically Signed: Russ Lion MD at 14:33 EDT , Assessment & Plan Assessment/Plan (1) Fever and neutropenia: PLAN: Plan The patient is a 71 y/o F w/ PMHx: Allergic rhinitis, Endometrial/Uterine Cancerwith ongoing chemotherapy last ~ 2 weeks prior who presents to the [facility] ED on 07/01/22 with history of onset fever on day of presentation with mild body aches as well as cervical lymphadenopathy and mild dyspnea but no cough with no recentill contacts and no associated nausea, emesis or diarrhea or urinary symptoms however given ongoing chemotherapy prompted ED evaluation. #1. Neutropenic fever of unclear etiology, potentially Viral Syndrome: Oncologyat [facility] consulted and aware of her admission with requested early follow-up after discharge. Will admit to [facility], maintain on Neutropenic precautions, obtain mag and phos level given recent chemotherapy treatments, maintain I&Os, treat with IV cefepime pending cultures. PRN tylenol, anti-emetics, pain regimen, willdose with granix. #2. Elevated BP without hypertensive diagnosis: Unclear if related with her acute presentation, BP above normal range, will continue monitor and if remains elevated and consistent with hypertension would add oral regimen, as needed IV hydralazine in the interim #3. Endometrial/uterine cancer: Status post hysterectomy, ongoing chemotherapy,following with oncology in the [facility], made aware of her current presentation and plan of care to which they are amenable, magnesium and phosphorus levels requested, CBC with evidence of pancytopenia, will trend. #4. Allergic rhinitis: Noted history, currently not on any scheduled regimen. #5. DVT prophylaxis: SCDs. #6. CODE status: Patient ALVARO is her daughter who is present and living will is currently in place. Discussed CODE status at length including difference between FULL code, DNR-CCA and DNR-CC status. Following discussions about the differences in these status, requested Full Code status although from discussions do believe this has not been discussed at length and recommended that they continue to review these items as patient was initially hesitant for full code. Advanced Care Planning Face to Face Time: 16 minutes. Admission Evaluation Time spent evaluating chart, patient history, patient evaluation, care planning and discussion with specialists: 75 minutes. Charges/Coding Visit Charges Inpatient E&M: 24509 Init Hosp L3 Procedures Hospitalists Procedures: 43420 Advncd Care Plan 30 Min 07/01/221954 <Electronically signed by Marisa Hay MD> Cosigner Signature (if applicable): CC: Dr. Marisa Hay MD; Dr. Jose L Wiseman MD~ Signed [facility] Work Phone: [phone]) 170-699304-07-[address] White [facility] July 01, 2022 3:50pm Note Date/Time July 01, 2022 12:2 6pm [facility] Medical Records Department [address] [place] [address] Emergency Department Summary 07/01/22 MR#: [id number] Acct: [id number] Name: CARY SWENSON Rep #:[id number] : 1950 71 From: Anna White DO PCP: Dr. Jose L Wiseman MD Status:R EG ER Location: ED HPI History of Present Illness Chief Complaint: Fever Detail of Chief Complaint: Fever Informant: patient Narrative Narrative: Patient presents to the emergency department complaint of a fever that was noticed today. Patient started having some body aches yesterday. She today noticed some swollen glands in her throat although she denies a sore throat. Patient has some mild shortness of breath but no cough. Checked her oral temperature at home and it was 100.7 today. Patient is being treated for uterine cancer and her last chemotherapy was 2 weeks ago. Patient denies sick contacts. She denies vomiting or diarrhea. She denies rashes. PFSH PFS Medical History Arthritis Cancer Cancer of endometrium Cardiology follow-up encounter Hemorrhoids History of fracture of ankle Hx of echocardiogram Non-smoker Osteoarthritis Osteopenia Port-A-Cath in place Post-menopausal bleeding Regional lymph node metastasis present Wears glasses Home Medications cholecalciferol (vitamin D3) 25 mcg (1,000 unit) capsule 25 mcg PO DAILY 06/19/20 [History Last Taken Unknown] multivitamin 1 tablet PO DAILY 06/19/20 [History Last Taken Unknown] Hydrocortisone 2.5%/lidocaine 5% suppository (cmpd) #30 ea 01/05/21 [Rx Last Taken Unknown] B-complex with vitamin C 1 tab PO DAILY 01/07/21 [History Last Taken Unknown] ascorbic acid (vitamin C) 500 mg tablet (Vitamin C) 500 mg PO DAILY 01/07/21 [History Last Taken Unknown] inulin 2 gram chewable tablet (Fiber Gummies) 2 g PO DAILY 04/01/21 [History Last Taken Unknown] cetirizine 10 mg capsule (Zyrtec) 10 mg PO DAILY #7 caps 11/09/21 [Rx Last Taken Unknown] epinephrine 0.3 mg/0.3 mL injection, auto-injector 0.3 mg (0.3 mL) IM Q10M PRN anaphylaxis #2 ea 11/09/21 [Rx Last Taken Unknown] prednisone 20 mg tablet 40 mg PO DAILY #8 tabs 11/09/21 [Rx Last Taken Unknown] Allergy/AdvReac Type Severity Reaction Status Date / Time carboplatin Allergy Severe Rash Verified 07/01/22 12:05 hyaluronidase Allergy Severe Rash Verified 07/01/22 12:05 [From Herceptin Hylecta] paclitaxel [From Taxol] Allergy Severe Rash Verified 07/01/22 12:05 trastuzumab-oysk Allergy Severe Rash Verified 07/01/22 12:05 [From Herceptin Hylecta] levofloxacin [From Levaquin] AdvReac Severe abdominal Verified 07/01/22 12:05 pain Family History Father Cancer lung Sister Depression Thyroid disorder Hypertension Skin cancer Diabetes Grandmother Osteoporosis Mother Hypertension Skin cancer Aunt Cancer cervical cancer Other Arthritis Surgical History History of ankle surgery History of colonoscopy (2003) History of knee surgery History of sinus surgery Hx of total hysterectomy S/P hemorrhoidectomy Social History Smoking Status: Never smoker second hand exposure: No alcohol intake: never caffeine: Yes what type of physical activity do you participate in: walking frequency: 3-4 times per week seatbelt use: always do you feel safe at home: Yes additional social history: [employer] [place] Derm ROS ROS ED Review of Systems ROS Unobtainable: other Constitutional Constitutional ED: Reports fever(s) and lethargy; Denies chills, sweats or weight loss Eyes Eyes: Denies blurry vision, change in vision or diplopia ENT ENT ED: Denies rhinorrhea or sore throat Cardiovascular Cardiovascular: Denies chest pain, orthopnea or racing heartbeat Respiratory/Chest Respiratory/Chest: Denies cough, dyspnea, dyspnea on exertion, orthopnea or sputum Gastrointestinal Gastrointestinal: Denies abdominal pain, diarrhea, nausea or vomiting Genitourinary Genitourinary ED: Denies dysuria, hematuria or urinary frequency Musculoskeletal Musculoskeletal: Reports myalgias; Denies arthralgias, back pain or neck pain Integumentary Denies abscess, Abrasions or rash Neurologic Neurologic: Denies headache(s) or weakness Psychiatric Psychiatric: Denies anxiety, depression or suicidal thoughts Endocrine Endocrinology: Denies polydipsia, polyphagia or polyuria Hematologic/Lymphatic Hematologic/Lymphatic: Denies easy bleeding, easy bruising or lymphadenopathy Allergic/Immunologic Allergic/Immunologic ED: Denies mouth swelling, tongue swelling or urticaria EXAM Physical Exam Const Vital Signs: 07/01/22 11:57 07/01/22 12:04 07/01/22 12:06 Temperature 98.4 F 98.5 F Temperature Source Oral Oral Pulse Rate 98 Respiratory Rate 20 H Respiratory Effort Short of Breath Respiratory Pattern Normal Blood Pressure 181/78 H Blood Pressure Mean 112 Pulse Ox 98 Oxygen Delivery Method Room Air 07/01/22 12:12 07/01/22 13:23 07/01/22 13:33 Temperature 98.5 F 98.3 F Temperature Source Oral Oral Pulse Rate 78 79 73 Respiratory Rate 17 18 13 Respiratory Effort Respiratory Pattern Blood Pressure 150/77 H 145/69 H 135/69 H Blood Pressure Mean 101 94 91 Pulse Ox 96 99 99 Oxygen Delivery Method Room Air Room Air Room Air 07/01/22 14:01 07/01/22 14:30 Temperature 98.3 F Temperature Source Oral Pulse Rate 76 78 Respiratory Rate 15 17 Respiratory Effort Respiratory Pattern Blood Pressure 149/74 H 158/79 H Blood Pressure Mean 99 105 Pulse Ox 100 98 Oxygen Delivery Method Room Air Room Air Positive well nourished and well developed General Appearance ED: well developed and NAD HEENT Reports TM's clear and moist mucous membranes normocephalic and atraumatic; Negative for trauma or tenderness Tympanic Membrane ED: Yes TM's clear Eyes PERRL and EOMs intact bilaterally General Eye ED: Negative for pale conjunctiva or scleral icterus Neck no lymphadenopathy, supple and no JVD Neck Narrative: Mild anterior adenopathy bilaterally. General: Negative for tenderness Chest Wall inspection of chest normal and palpation of chest normal Chest: Negative for tenderness Resp normal respiratory effort and clear to auscultation bilaterally Effort and Inspection: Negative for respiratory distress or pain with movement Auscultation: Negative for rhonchi, wheezes or diminished lung sounds Cardio regular rate, regular rhythm, S1 normal heart sound, S2 normal heart sound and no murmurs Peripheral Pulses: pulses 2+ throughout GI normal to inspection, nondistended, normoactive bowel sounds, soft to palpation,non-tender, non-distended and no masses Back/Spine no CVA tenderness and no thoracic nor lumbar tenderness Extremity normal to inspection General Extremety ED: Negative for edema General Extremity: Negative for edema Neuro oriented x3, CN's II-XII intact bilaterally, no sensory deficits noted and gait normal Sensorium / Orientation: awake, alert, oriented to person, oriented to place andoriented to time Motor Exam: strength 5/5 throughout and strength abnormal Psych mental status grossly normal Skin no rashes or lesions noted and no wounds MDM MDM MDM Narrative Medical decision making narrative: Patient with fever at home. Patient neutropenic due to chemotherapy. CBC with differential obtained showing a 1.9 with a hemoglobin of 8 and hematocrit of of 24.5. Platelets 100. Chemistries unremarkable. LFTs normal. D-dimer elevated1.19 urinalysis was normal. Patient had a COVID and flu rapid test both were negative. Patient had a negative strep screen. CTA of the chest was negative for PE or dissection. At this time I do not have a clear source or etiology forher fever. Patient was empirically started on Zosyn. Case will be discussed with hospitalist evaluate patient for admission for neutropenic fever Lab Data Labs: Laboratory Results - last 24 hr 07/01/22 07/01/22 07/01/22 12:45 12:45 12:45 WBC 1.9 L RBC 2.33 L Hgb 8.0 L Hct 24.5 L MCV 105.2 H MCH 34.3 H MCHC 32.7 RDW Std Deviation 59.7 H RDW Coeff of Calixto 15.8 H Plt Count 100 L MPV 10.3 Immature Gran % (Auto) 0.000 Neut % (Auto) 16.0 L Lymph % (Auto) 50.3 H [place] % (Auto) 33.2 H Eos % (Auto) 0.0 Baso % (Auto) 0.5 Absolute Neuts (auto) 0.3 L Absolute Lymphs (auto) 0.97 Nucleated RBC % 0 Differential Comment SCANNED D-Dimer Quant (PE/DVT) 1.19 H* Sodium 138 Potassium 3.8 Chloride 105 Carbon Dioxide 28.0 Anion Gap 5 BUN 12 Creatinine 0.76 Estim Creat Clear Calc 45.85 Est GFR (MDRD) Af Amer 97 Est GFR (MDRD) Non-Af 80 BUN/Creatinine Ratio 15.8 Glucose 97 Lactic Acid Calcium 8.4 L Total Bilirubin 0.30 AST 22 ALT 22 Alkaline Phosphatase 78 Total Protein 6.9 Albumin 3.4 Globulin 3.5 Albumin/Globulin Ratio 1.0 Urine Color Urine Clarity Urine pH Ur Specific [place] Urine Protein Urine Glucose (UA) Urine Ketones Urine Occult Blood Urine Nitrite Urine Bilirubin Urine Urobilinogen Ur Leukocyte Esterase Urine RBC Urine WBC Ur Squamous Epith Cells Urine Bacteria Urine Mucus 07/01/22 07/01/22 12:45 13:55 WBC RBC Hgb Hct MCV MCH MCHC RDW Std Deviation RDW Coeff of Cali[place] Plt Count MPV Immature Gran % (Auto) Neut % (Auto) Lymph % (Auto) [place] % (Auto) Eos % (Auto) Baso % (Auto) Absolute Neuts (auto) Absolute Lymphs (auto) Nucleated RBC % Differential Comment D-Dimer Quant (PE/DVT) Sodium Potassium Chloride Carbon Dioxide Anion Gap BUN Creatinine Estim Creat Clear Calc Est GFR (MDRD) Af Amer Est GFR (MDRD) Non-Af BUN/Creatinine Ratio Glucose Lactic Acid 0.8 Calcium Total Bilirubin AST ALT Alkaline Phosphatase Total Protein Albumin Globulin Albumin/Globulin Ratio Urine Color Yellow Urine Clarity Clear Urine pH 8.0 Ur Specific [place] 1.010 Urine Protein Negative Urine Glucose (UA) Normal Urine Ketones Negative Urine Occult Blood Negative Urine Nitrite Negative Urine Bilirubin Negative Urine Urobilinogen Normal Ur Leukocyte Esterase Negative Urine RBC 0 SEEN Urine WBC 0 SEEN Ur Squamous Epith Cells 0 SEEN Urine Bacteria 0 SEEN Urine Mucus 0 SEEN Radiography Diagnostic Testing: Clinical Impression(s) from Imaging Studies Chest X-Ray 07/01/22 12:59 IMPRESSION: Hyperinflation. The lungs are clear. Electronically Signed: Russ Lion MD at 13:10 EDT , Chest CTA 07/01/22 13:47 IMPRESSION: Normal CTA chest examination, without a demonstrated pulmonary embolism or arterial dissection. Electronically Signed: Russ Lion MD at 14:33 EDT , 1 view chest x-ray obtained interpreted by myself as no evidence of infiltrate or pneumothorax or acute process. Radiology in agreement. Discharge Plan Triage Chief Complaint: Fever ED Provider: Anna White Dx/Rx/DC Orders Clinical Impression: Fever and neutropenia, Hx of cancer of uterus, Thrombocytopenia Prescriptions: No Action multivitamin Tablet 1 tablet PO DAILY cholecalciferol (vitamin D3) 25 mcg (1,000 unit) capsule 25 mcg PO DAILY Fiber Gummies 2 gram tablet,chewable 2 g PO DAILY (DME) Hydrocortisone 2.5%/lidocaine 5% suppository (cmpd) Suppository See Rx Instructions .ROUTE .MEDSUPPLY Qty: 30 1RF Rx Instructions: As directed ascorbic acid (vitamin C) [Vitamin C] 500 mg Tablet 500 mg PO DAILY B-complex with vitamin C [Vitamin B Complex-8] Tablet 1 tab PO DAILY epinephrine 0.3 mg/0.3 mL auto-injector 0.3 mg IM Q10M PRN (Reason: anaphylaxis) Qty: 2 0RF Rx Instructions: for 2 doses prednisone 20 mg tablet 40 mg PO DAILY Qty: 8 0RF Zyrtec 10 mg capsule 10 mg PO DAILY Qty: 7 0RF Primary Care Provider: Jose L Wiseman Referrals: Jose L Wiseman MD [Primary Care Provider] - Disposition Disposition: Acute Care Hospital [facility] What to do if you have Problems For any increased pain, shortness of breath, bleeding, nausea or vomiting, chestpain, or any unexpected problems, contact your Primary Care Provider. Call [facility] ([phone]) or report to the closest Emergency Room. Call 911 if necessary. 07/01/22 1550 <Electronically signed by Anna White DO> Cosigner Signature (if applicable): CC: Dr. Jose L Wiseman MD ~ Signed [facility] Work Phone: [phone] 630-674704-07-2023 Telephone encounter Note* Telephone Encounter - Silvana Hamilton RN - 07/01/2022 4:21 PM EDT Spoke to Er physician at [place], Baudilio Hay. She states patient anc is 300 wbc 1.9. Patient is negative for strep and covid. Blood cultures and urine culture were done. They will keep her and follow their protocal for neutropenic fever. Spoke to Ricarda Drew Cnp and she agrees with the plan. [id number] Miscellaneous Notes* Telephone Encounter - Silvana Hamilton RN - 07/01/2022 4:21 PM EDT Spoke to Er physician at [place], Baudilio Hay. She states patient anc is 300 wbc 1.9. Patient is negative for strep and covid. Blood cultures and urine culture were done. They will keep her and follow their protocal for neutropenic fever. Spoke to Ricarda Drew Cnp and she agrees with the plan. * Telephone Encounter - Silvana Hamilton RN - 07/01/2022 10:05 AM EDT Patient has temp 100.7 chills and swollen neck glands. No cough or sore throat. Yellow drainage from nose. Denies CP but having SOB on exertion. She is also having a lot of fatigue. Her Covid test was negative. She is two weeks out of chemo. Instructed to go to the ER. She agrees with the plan and will go to [facility], where she lives. documented in this encounterSPremier [id number] Telephone encounter Note* Telephone Encounter - Silvana Hamilton RN - 07/01/2022 10:05 AM EDT Patient has temp 100.7 chills and swollen neck glands. No cough or sore throat. Yellow drainage from nose. Denies CP but having SOB on exertion. She is also having a lot of fatigue. Her Covid test was negative. She is two weeks out of chemo. Instructed to go to the ER. She agrees with the plan and will go to [place] [facility], where she lives. [id number] Telephone encounter Note* Telephone Encounter - JULIA Ferrera CNP - 06/17/2022 12:38 PM EDT Gabriela Tariq RN will notify pt of UA, urine culture pending. Will call pt Monday with urine culture results. [id number] Miscellaneous Notes* Telephone Encounter - JULIA Ferrera CNP - 06/17/2022 12:38 PM EDT Gabriela Tariq RN will notify pt of UA, urine culture pending. Will call pt Monday with urine culture results. documented in this [facility]03-24-2023 History of Present illness Narrative* Gabriela Tariq RN - 06/17/2022 11:00 AM EDT Patient arrived with adult daughter from [place]. Ricarda TOTH called to request a UACNS d/t vaginal bleeding. Patient provided clean catch urine sample, sent to CCL. Patient denies vaginal bleeding as a new symptom. Patient reports she did take Dex prep at home. ECHO from 03/23/22= 65%, will verify with office new order for repeat ECHO prior to next treatment. CBC and CMP from 06/16/22 reviewed. CrCl calculated to be 73.56 ml/min. PIV inserted in LFA.New consent obtained today for Abraxane and patienteducation material provided to patient. Patient tolerated infusions well. Vitals obtained. HTN noted prior to and after treatment. Patient encourage to monitor at home and if continues to be elevated to follow up with PCP. Verbalized understanding of these instructions. PIV d/c'd angio cath intact. Patient stable and ambulatory upon discharge. Order for FERNANDO provided to patient so she can have preformed in [place] at her request. documented in this [facility]02-24-2023 History of Present illness Narrative* Paradise Quiñones RN - 05/20/2022 9:00 AM EST Patient arrived ambulatory for cycle 3 trastuzumab/ Carboplatin. Labs collected 05/18. Reports she did not experience rash after omitting Taxol. Remainder of assessment reviewed. PIV placed with ease.Reviewed with EDWARD Chowdary-because Taxol was omitted we will omit pepcid/benadryl as premedication as well. Patient is agreeable with this plan. POC reviewed. 1205-Tolerated infusions well. PIV dcd, gauze and coban to site. Patient aware of next appts. Patient discharged ambulatory to home. documented in this [facility]02-24-2023 History of Present illness Narrative* Ricarda Drew APRN - NET MVC DEVELOPER - 05/20/2022 8:30 AM EST @LOGGolden Star ResourcesNEGE@ CC: here for Taxol, Carboplatin and Trazimera every 21 days HPI: Cary Swenson is a 71 y.o. 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 She was treated with robotic hysterectomy BSO sentinel lymph node sampling followed by chemotherapy with carboplatinum and Taxol and Herceptin in [place]. However the patient developed a severe reaction after the first course. This was in early September. The patient decided not to pursue any further chemotherapy after that point. CA 125 10.6 10/[address]. [address] A/P/C 10/15 was NILESH CA125 in October 2021 was 13.8 03/11/22 Biopsy performed in office. Final Diagnosis VAGINA, BIOPSY- VAGINAL MUCOSAL FRAGMENTS WITH INVOLVEMENT BY HIGH GRADE SEROUS CARCINOMA. 03/16/22 PET showed positive for carcinoma Interval History Pt receiving Trastuzumab and Carboplatin. She denies any grade 3 or 4 toxicities. She is tolerating chemotherapy well. She does not have: Anorexia, Fever, Chills, Sweats, Weight Loss, Nausea, Diarrhea, Constipation, Weakness, Fatigue, Pain, Arthralgias, Myalgias, Edema, Dizziness, SOB. Denies abdominal pain, abdominal distention, vaginal bleeding or discharge. Denies Anxiety and Depression. Pt asking if she can have Taxol again for cycle 4-6 at reduced dose. Pt not receiving Taxol due to reaction-painful rash, tried steroids, Benadryl with no relief. 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 Improving. Taking Vitamin B complex, ALA. Patient reports she is doing well emotionally, has a great support system at home. Is not interested in Dr. Hua at this time. 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 Past Medical History: Diagnosis Date Cancer (CMS/HCC) ([facility]) Endometrial Osteoarthritis Osteopenia Social History Socioeconomic History Marital status: Single Tobacco Use Smoking status: Never Smokeless tobacco: Never Substance and Sexual Activity Alcohol use: Yes Drug use: Never Past Surgical History: Procedure Laterality Date FRACTURE SURGERY Left 1973 ankle HEMORRHOID SURGERY KNEE SURGERY Right 1969 and 1970 OTHER SURGICAL HISTORY 07/16/2020 [facility] BSO LND; Dr. Denis Richey SINUS SURGERY 2006 Review of Systems Carboplatin, Hyaluronidase (mammal-derived), Paclitaxel, Trastuzumab, and Levofloxacin Current Outpatient Medications Medication Sig Dispense Refill ascorbic acid (Vitamin C) 500 mg chewable tablet Chew 500 mg daily. B Xxccksi-W-Nyypyxl (B-COMPLEX/VITAMIN C, W/ CA, PO) Take by mouth. multivitamin with minerals (Cerovite) 18-400 mg-mcg tablet tablet Take 1 tablet by mouth daily. cholecalciferol (Vitamin D-3) 25 MCG (1000 UT) tablet Take 1,000 Units by mouth daily. dexAMETHasone (Decadron) 4 MG tablet Take 5 tablets po 12 hours and 6 hours prior to each chemo. 10tablet 3 Docusate Sodium (DSS) 100 MG capsule Take 100 mg by mouth daily. ibuprofen 600 MG tablet Take 600 mg by mouth. prochlorperazine (Compazine) 10 MG tablet Take 1 tablet (10 mg) by mouth every 6 hours as needed for nausea or vomiting. 30 tablet 2 prochlorperazine (Compazine) 10 MG tablet Take 1 tablet (10 mg) by mouth every 6 hours as needed for nausea or vomiting. 30 tablet 2 silver sulfADIAZINE (Silvadene) 1 % cream Apply topically daily. To rash-type areas. 50 g 3 No current facility-administered medications for this visit. BP (!) 154/77 Pulse 83 Ht 1.651 m (5' 5) Wt 68.9 kg (152 lb) BMI 25.29 kg/m Physical Exam Constitutional: Appearance: Normal appearance. HENT: Head: Normocephalic. Cardiovascular: Rate and Rhythm: Normal rate and regular rhythm. Pulmonary: Effort: Pulmonary effort is normal. Breath sounds: Normal breath sounds. Abdominal: Comments: Soft, nondistended. Genitourinary: Comments: Deferred. Skin: General: Skin is warm and dry. Neurological: General: No focal deficit present. Mental Status: She is alert and oriented to person, place, and time. Psychiatric: Mood and Affect: Mood normal. Behavior: Behavior normal. Assessment: Stage III C1 endometrial cancer serous. Continue trastuzumab and carboplatinum. Will consult with Dr. Richey to see if Taxol at reduced dose can be added on to cycles 4-6. ECHO every 3 months. Most recent ECHO 03/23/22 Ejection fraction 65%. Tolerating chemotherapy well. Taxol discontinued due to painful rash. Continue vitamin B complex, ALA. 03/11/22 Dr Mcfadden's note: PET scan has been ordered discussed findings with patient. Discussed treatment options based upon PET scan. Patient is relatively chemotherapy na ve. I did discuss sending her back to the medical oncologist in [place] to continue chemotherapy with carboplatinum and Taxol. She may also require local radiation therapy after chemotherapy. All the patient's questions wereanswered to the best of my ability. Total time spent in counseling patient, discussing evidence of recurrent cancer and treatment options was 25 minutes documented in this [facility]02-03-2023 History of Present illness Narrative* MARLENE Ochoa - 04/29/2022 11:33 AM EST Error documented in this [facility]02-03-2023 History of Present illness Narrative* MARLENE Ochoa - 04/29/2022 10:58 AM EST Met with patient and 2 daughters to introduce social work role and assess needs. Informed Cary of all supportive care services available and encouraged her to utilize. Provided hats and a scarf for hair loss. She resides alone and has 4 adult children in the area who are very supportive. She denies any other needs. documented in this [facility]02-03-2023 History of Present illness Narrative* Mathew Ellis RN - 04/29/2022 10:00 AM EST Pt here for IV Trazimera/Carboplatin. PIV inserted. All blood work done at outside lab. CBC within parameters for today's tx. 1330: Ordered treatment completed. Patient discharged without any issues. Patient has a copy of next infusion appointment and verbalizes understanding. All questions answered. documented in this [facility]02-03-2023 History of Present illness Narrative* JULIA Ferrera CNP - 04/29/2022 9:30 AM EST @[employer]@ CC: here for Taxol, Carboplatin and Trazimera every 21 days HPI: Cary Swenson is a 71 y.o. 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 She was treated with robotic hysterectomy BSO sentinel lymph node sampling followed by chemotherapy with carboplatinum and Taxol and Herceptin in [place]. However the patient developed a severe reaction after the first course. This was in early September. The patient decided not to pursue any further chemotherapy after that point. CA 125 10.6 10/[address] A/P/C 10/15 was NILESH CA125 in October 2021 was 13.8 03/11/22 Biopsy performed in office. Final Diagnosis VAGINA, BIOPSY- VAGINAL MUCOSAL FRAGMENTS WITH INVOLVEMENT BY HIGH GRADE SEROUS CARCINOMA. 03/16/22 PET showed positive for carcinoma Interval History Pt receiving Trastuzumab and Carboplatin. She denies any grade 3 or 4 toxicities. She is tolerating chemotherapy well. She does not have: Anorexia, Fever, Chills, Sweats, Weight Loss, Nausea, Diarrhea, Constipation, Weakness, Fatigue, Pain, Arthralgias, Myalgias, Edema, Dizziness, SOB. Denies abdominal pain, abdominal distention, vaginal bleeding or discharge. Denies Anxiety and Depression. Pt not receiving Taxol due to reaction-painful rash, tried steroids, Benadryl with no relief. 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 Improving. Started Vitamin B complex, not using ALA. Patient reports blood pressure is high today because she was rushing to get here. Patient reports she is doing well emotionally, has a great support system at home. Is not interested in Dr. Hua at this time. 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 Past Medical History: Diagnosis Date Cancer (CMS/HCC) ([facility]) Endometrial Osteoarthritis Osteopenia Social History Socioeconomic History Marital status: Single Tobacco Use Smoking status: Never Smokeless tobacco: Never Substance and Sexual Activity Alcohol use: Yes Drug use: Never Past Surgical History: Procedure Laterality Date FRACTURE SURGERY Left 1973 ankle HEMORRHOID SURGERY KNEE SURGERY Right 1969 and 1970 OTHER SURGICAL HISTORY 07/16/2020 [facility] BSO LND; Dr. Denis Richey SINUS SURGERY 2007 Review of Systems Carboplatin, Hyaluronidase (mammal-derived), Paclitaxel, Trastuzumab, and Levofloxacin Current Outpatient Medications Medication Sig Dispense Refill ascorbic acid (Vitamin C) 500 mg chewable tablet Chew 500 mg daily. cholecalciferol (Vitamin D-3) 25 MCG (1000 UT) tablet Take 1,000 Units by mouth daily. dexAMETHasone (Decadron) 4 MG tablet Take 5 tablets po 12 hours and 6 hours prior to each chemo. 10tablet 3 Docusate Sodium (DSS) 100 MG capsule Take 100 mg by mouth daily. ibuprofen 600 MG tablet Take 600 mg by mouth. multivitamin with minerals (Cerovite) 18-400 mg-mcg tablet tablet Take 1 tablet by mouth daily. prochlorperazine (Compazine) 10 MG tablet Take 1 tablet (10 mg) by mouth every 6 hours as needed for nausea or vomiting. 30 tablet 2 prochlorperazine (Compazine) 10 MG tablet Take 1 tablet (10 mg) by mouth every 6 hours as needed for nausea or vomiting. 30 tablet 2 silver sulfADIAZINE (Silvadene) 1 % cream Apply topically daily. To rash-type areas. 50 g 3 No current facility-administered medications for this visit. BP (!) 177/82 Pulse 83 Ht 1.626 m (5' 4) Wt 68 kg (150 lb) BMI 25.75 kg/m Physical Exam Constitutional: Appearance: Normal appearance. HENT: Head: Normocephalic. Cardiovascular: Rate and Rhythm: Normal rate and regular rhythm. Pulmonary: Effort: Pulmonary effort is normal. Breath sounds: Normal breath sounds. Abdominal: Comments: Soft, nondistended. Genitourinary: Comments: Deferred. Skin: General: Skin is warm and dry. Neurological: General: No focal deficit present. Mental Status: She is alert and oriented to person, place, and time. Psychiatric: Mood and Affect: Mood normal. Behavior: Behavior normal. Assessment: Stage III C1 endometrial cancer serous. Continue trastuzumab and carboplatinum. ECHO every 3 months. Most recent ECHO 03/23/22 Ejection fraction 65%. Tolerating chemotherapy well. Taxol discontinued due to painful rash. Continue vitamin B complex, add ALA. Peripheral neuropathy information sheet given to patient. 03/11/22 Dr Mcfadden's note: PET scan has been ordered discussed findings with patient. Discussed treatment options based upon PET scan. Patient is relatively chemotherapy na ve. I did discuss sending her back to the medical oncologist in [place] to continue chemotherapy with carboplatinum and Taxol. She may also require local radiation therapy after chemotherapy. All the patient's questions wereanswered to the best of my ability. Total time spent in counseling patient, discussing evidence of recurrent cancer and treatment options was 25 minutes * Silvana Hamilton RN - 04/29/2022 9:30 AM EST Patient feels well. No issues eating or drinking. No diarrhea or nausea. States she is having numbness in her feet and hands. No balance issues. She is on B complex and is going to start alpha lipoic acid 600mg bid. documented in this [facility]01-13-2023 Telephone encounter Note* Telephone Encounter - Scarlett Valdez - 04/08/2022 10:21 AM EST Pt was told to call in and discuss her chemo side effects [facility] [id number] Miscellaneous Notes* Telephone Encounter - Scarlett Valdez - 04/08/2022 10:21 AM EST Pt was told to call in and discuss her chemo side effects documented in this encounterSPremier [id number] Telephone encounter Note* Telephone Encounter - JULIA Ferrera CNP - 04/06/2022 1:25 PM EST Pt reports rash does not itch, is not as bad as rash with last chemo in August. See TE from [place] with more details. Pt has Prednisone at home 20mg that she will take for a few days to see if this helps. Silvadene cream sent to pt's pharmacy. Pt to call Monday with update or before if rash is worsened. Pt verbalized understanding, no further questions. If no worse, we can re-challenge with Taxol/Carbo again and give Decadron prep. [facility] [employer] Phone: [phone]) 590-591901-11-2023 Miscellaneous Notes* Telephone Encounter - JULIA Ferrera CNP - 04/06/2022 1:25 PM EST Pt reports rash does not itch, is not as bad as rash with last chemo in August. See TE from [place] with more details. Pt has Prednisone at home 20mg that she will take for a few days to see if this helps. Silvadene cream sent to pt's pharmacy. Pt to call Monday with update or before if rash is worsened. Pt verbalized understanding, no further questions. If no worse, we can re-challenge with Taxol/Carbo again and give Decadron prep. * Telephone Encounter - Brooklynn Del Angel RN - 04/06/2022 12:04 PM EST Pt states she has the same rash from trying the carbo/taxol last year in August. Upper inner thighs, arm pits, flank, chest, sides and neck. Rash is bright red and burning. No hives or bumps. Fingertips are burning now and last year skin eventually peeled off. Body aches in hips, legs and lower back and pt took tylenol. No hard time breathing. * Telephone Encounter - Dalia Escalante MA - 04/06/2022 12:00 PM EST Pt had first chemo on Monday-she is having a red burning rash in inner thigh, flank, chest hands. And having general hip/leg pain, aches. No fever documented in this encounterSPremier [id number] Telephone encounter Note* Telephone Encounter - Brooklynn Del Angel RN - 04/06/2022 12:04 PM EST Pt states she has the same rash from trying the carbo/taxol last year in August. Upper inner thighs, arm pits, flank, chest, sides and neck. Rash is bright red and burning. No hives or bumps. Fingertips are burning now and last year skin eventually peeled off. Body aches in hips, legs and lower back and pt took tylenol. No hard time breathing. [facility] [id number] Telephone encounter Note* Telephone Encounter - Dalia Escalante MA - 04/06/2022 12:00 PM EST Pt had first chemo on Monday-she is having a red burning rash in inner thigh, flank, chest hands. And having general hip/leg pain, aches. No fever [facility] [id number] History of Present illness Narrative* Belkys Orr RN - 04/04/2022 9:00 AM EST Pt arrives today for first cycle of Trazimera, Taxol, Carbo. Pt previously received Taxol, carbo, Herceptin in September 2020 which she had a severe, full body rash reaction to on the 2-3 day post tx. Pt did not want to continue treatment after this. She does admit that other than the rash she had no other symptoms or side effects. Pt fairly calm on arrival with minimal anxiety. Pt's daughter present,who is an infusion nurse at another facility. Pt given an orientation to the facility. Typical day's POC reviewed and pt is very understanding with no questions. White binder given and briefly discussed. Pt admits to a few symptoms on assessment today including abdominal cramping, occasional vaginal bleeding, and urinary frequency with mild incontinence. This was all previously discussed with Dr Richey and is r/t tumor placement. Otherwise only reports some chronic symptoms, see assessment fordetails. PIV placed with ease. No labs required today. Pt states she has never had an access issue and does not plan for a port at this time. Pt tolerated entire first treatment well today. Denies any onset of pain or other symptoms during chemo infusions. Side effects and post chemo suggestions and tips reviewed with pt in depth prior to discharge. She did state that she did not have a Compazine prescription to picker packer at her pharmacy. 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 office notified and message left for them to send this in for her. Pt agreeable. All questions were answered. PIV removed. Gauze and coban applied to site. Pt ambulatory home with daughter upon discharge documented in this [facility]01-09-2023 History of Present illness Narrative* Belkys Orr RN - 04/04/2022 9:00 AM EST Pt arrives today for first cycle of Trazimera, Taxol, Carbo. Pt previously received Taxol, carbo, Herceptin in September 2020 which she had a severe, full body rash reaction to on the 2-3 day post tx. Pt did not want to continue treatment after this. She does admit that other than the rash she had no other symptoms or side effects. Pt fairly calm on arrival with minimal anxiety. Pt's daughter present,who is an infusion nurse at another facility. Pt given an orientation to the facility. Typical day's POC reviewed and pt is very understanding with no questions. White binder given and briefly discussed. Pt admits to a few symptoms on assessment today including abdominal cramping, occasional vaginal bleeding, and urinary frequency with mild incontinence. This was all previously discussed with Dr Richey and is r/t tumor placement. Otherwise only reports some chronic symptoms, see assessment fordetails. PIV placed with ease. No labs required today. Pt states she has never had an access issue and does not plan for a port at this time. Pt tolerated entire first treatment well today. Denies any onset of pain or other symptoms during chemo infusions. Side effects and post chemo suggestions and tips reviewed with pt in depth prior to discharge. She did state that she did not have a Compazine prescription to picker packer at her pharmacy. 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 Onc office notified and message left for them to send this in for her. Pt agreeable. All questions were answered. PIV removed. Gauze and coban applied to site. Pt ambulatory home with daughter upon discharge Late entry entered on 04/06/22 - pt did confirm that she took her Dexamethasone prep 12h and 6h prior to her infusion [facility] Diagnosis Onset Date Resolution Status Cancer of endometrium chroni c Regional lymph node metastasis present chronic [facility] Work Phone: Evaluation noteNo assessment information available [facility] Work Phone: Evaluation note* Diagnosis Onset Date Resolution Status Cancer of endometrium chroni c Regional lymph node metastasis present chronic Encounter for adjustment or management of vascular access device acute [facility] Work Phone: Evaluation note* Diagnosis Hematuria, unspecified type- Primary Endometrial cancer (CMS/HCC) (HCC) Malignant neoplasm of corpus uteri, except isthmus Other specified complication of vascular prosthetic devices, implants and grafts, initial encounter (HCC) [facility] Diagnosis Onset Date Resolution Status Fever and neutropenia acute Hx of cancer of uterus acute Thrombocytopenia acute [facility] Work Phone: Evaluation note* Diagnosis Endometrial cancer (CMS/HCC) (HCC)- Primary Malignant neoplasm of corpus uteri, except isthmus Encounter for antineoplastic chemotherapy 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 [facility] Diagnosis Onset Date Resolution Status Hx of cancer of uterus acute Thrombocytopenia acute Fever and neutropenia resolv ed [facility] Work Phone: Evaluation note* Diagnosis Endometrial cancer (CMS/HCC) (HCC)- Primary Malignant neoplasm of corpus uteri, except isthmus [facility]* Diagnosis Endometrial cancer (CMS/HCC) (HCC)- Primary Malignant neoplasm of corpus uteri, except isthmus [facility]* Diagnosis Endometrial cancer (CMS/HCC) (HCC)- Primary Malignant neoplasm of corpus uteri, except isthmus Encounter for antineoplastic chemotherapy [facility]* Diagnosis Endometrial cancer (CMS/HCC) (HCC)- Primary Malignant neoplasm of corpus uteri, except isthmus Other specified complication of vascular prosthetic devices, implants and grafts, initial encounter (HCC) [facility]* Diagnosis Other specified complication of vascular prosthetic devices, implants and grafts, initial encounter (HCC) Endometrial cancer (CMS/HCC) (HCC) Malignant neoplasm of corpus uteri, except isthmus [facility] Diagnosis Endometrial cancer (CMS/HCC) (HCC)- Primary Malignant neoplasm of corpus uteri, except isthmus Neuropathy due to chemotherapeutic drug (HCC) Immunotherapy Encounter for monitoring cardiotoxic drug therapy [facility]* Diagnosis Other specified complication of vascular prosthetic devices, implants and grafts, initial encounter (HCC) Endometrial cancer (CMS/HCC) (HCC) Malignant neoplasm of corpus uteri, except isthmus [facility]* Diagnosis Endometrial cancer (CMS/HCC) (HCC)- Primary Malignant neoplasm of corpus uteri, except isthmus Encounter for antineoplastic chemotherapy [facility]* Diagnosis Endometrial cancer (CMS/HCC) (HCC) Malignant neoplasm of corpus uteri, except isthmus Other specified complication of vascular prosthetic devices, implants and grafts, initial encounter (HCC) [facility]* Diagnosis Endometrial cancer (CMS/HCC) (HCC) Malignant neoplasm of corpus uteri, except isthmus Other specified complication of vascular prosthetic devices, implants and grafts, initial encounter (HCC) [facility]* Diagnosis Endometrial cancer (CMS/HCC) (HCC)- Primary Malignant neoplasm of corpus uteri, except isthmus Encounter for antineoplastic chemotherapy [facility]* Diagnosis Other specified complication of vascular prosthetic devices, implants and grafts, initial encounter (HCC) Endometrial cancer (CMS/HCC) (HCC) Malignant neoplasm of corpus uteri, except isthmus [facility]* Diagnosis Other specified complication of vascular prosthetic devices, implants and grafts, initial encounter (HCC) Endometrial cancer (CMS/HCC) (HCC) Malignant neoplasm of corpus uteri, except isthmus [facility]* Diagnosis Endometrial cancer (CMS/HCC) (HCC)- Primary Malignant neoplasm of corpus uteri, except isthmus Neuropathy due to chemotherapeutic drug (HCC) Maintenance chemotherapy Encounter for antineoplastic chemotherapy Encounter for monitoring cardiotoxic drug therapy Immunotherapy 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 [facility]* Diagnosis Endometrial cancer (CMS/HCC) (HCC) Malignant neoplasm of corpus uteri, except isthmus Other specified complication of vascular prosthetic devices, implants and grafts, initial encounter (HCC) [facility] Diagnosis Elevated blood pressure, situational- Primary Overweight Encounter for screening mammogram for malignant neoplasm of breast Establishing care with new doctor, encounter for Influenza vaccination declined Pneumococcal vaccination declined HIV screening declined Screening for hepatitis C declined [facility]* Diagnosis Elevated blood pressure, situational- Primary Overweight Encounter for screening mammogram for malignant neoplasm of breast Establishing care with new doctor, encounter for Influenza vaccination declined Pneumococcal vaccination declined HIV screening declined Screening for hepatitis C declined [facility]* Diagnosis Encounter for screening mammogram for malignant neoplasm of breast [facility] Diagnosis Left hip pain Pain in joint, pelvic region and thigh [facility]* Diagnosis Encounter for imaging study to restage neoplasm- Primary Radiological examination, not elsewhere classified Endometrial cancer (CMS/HCC) (HCC) Malignant neoplasm of corpus uteri, except isthmus 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 Left hip pain Pain in joint, pelvic region and thigh Pain of left femur [facility]* Diagnosis Endometrial cancer (CMS/HCC) (HCC) Malignant neoplasm of corpus uteri, except isthmus Other specified complication of vascular prosthetic devices, implants and grafts, initial encounter (HCC) [facility]* Diagnosis Endometrial cancer (CMS/HCC) (HCC)- Primary Malignant neoplasm of corpus uteri, except isthmus Encounter for antineoplastic chemotherapy [facility]* Diagnosis Endometrial cancer (CMS/HCC) (HCC) Malignant neoplasm of corpus uteri, except isthmus Other specified complication of vascular prosthetic devices, implants and grafts, initial encounter (HCC) [facility]* Diagnosis Other specified complication of vascular prosthetic devices, implants and grafts, initial encounter (HCC) Endometrial cancer (CMS/HCC) (HCC) Malignant neoplasm of corpus uteri, except isthmus [facility]* Diagnosis Other specified complication of vascular prosthetic devices, implants and grafts, initial encounter (HCC) Endometrial cancer (CMS/HCC) (HCC) Malignant neoplasm of corpus uteri, except isthmus [facility]* Diagnosis Endometrial cancer (CMS/HCC) (HCC)- Primary Malignant neoplasm of corpus uteri, except isthmus Immunotherapy [facility]* Diagnosis Endometrial cancer (CMS/HCC) (HCC) Malignant neoplasm of corpus uteri, except isthmus Other specified complication of vascular prosthetic devices, implants and grafts, initial encounter (HCC) [facility]* Diagnosis Immunotherapy- Primary Endometrial cancer (CMS/HCC) (HCC) Malignant neoplasm of corpus uteri, except isthmus [facility]* Diagnosis Endometrial cancer (CMS/HCC) (HCC) Malignant neoplasm of corpus uteri, except isthmus Other specified complication of vascular prosthetic devices, implants and grafts, initial encounter (HCC) [facility]* Diagnosis Endometrial cancer (CMS/HCC) (HCC) Malignant neoplasm of corpus uteri, except isthmus Encounter for antineoplastic chemotherapy [facility]* Diagnosis Endometrial cancer (CMS/HCC) (HCC) Malignant neoplasm of corpus uteri, except isthmus Encounter for antineoplastic chemotherapy [facility]* Diagnosis Endometrial cancer (CMS/HCC) (HCC) Malignant neoplasm of corpus uteri, except isthmus Other specified complication of vascular prosthetic devices, implants and grafts, initial encounter (HCC) [facility]* Diagnosis Endometrial cancer (CMS/HCC) (HCC)- Primary Malignant neoplasm of corpus uteri, except isthmus Immunotherapy [facility]* Diagnosis Endometrial cancer (CMS/HCC) (HCC)- Primary Malignant neoplasm of corpus uteri, except isthmus Encounter for antineoplastic chemotherapy [facility]* Diagnosis Endometrial cancer (CMS/HCC) (HCC) Malignant neoplasm of corpus uteri, except isthmus Other specified complication of vascular prosthetic devices, implants and grafts, initial encounter (HCC) [facility]* Diagnosis Endometrial cancer (CMS/HCC) (HCC) Malignant neoplasm of corpus uteri, except isthmus Other specified complication of vascular prosthetic devices, implants and grafts, initial encounter (HCC) [facility]* Diagnosis Endometrial cancer (CMS/HCC) (HCC) Malignant neoplasm of corpus uteri, except isthmus Other specified complication of vascular prosthetic devices, implants and grafts, initial encounter (HCC) [facility]* Diagnosis Endometrial cancer (CMS/HCC) (HCC) Malignant neoplasm of corpus uteri, except isthmus Other specified complication of vascular prosthetic devices, implants and grafts, initial encounter (HCC) Endometrial cancer (CMS/HCC) (HCC)- Primary Malignant neoplasm of corpus uteri, except isthmus Encounter for antineoplastic chemotherapy [facility]* Diagnosis Endometrial cancer (CMS/HCC) (HCC) Malignant neoplasm of corpus uteri, except isthmus Other specified complication of vascular prosthetic devices, implants and grafts, initial encounter (HCC) [facility]* Diagnosis Endometrial cancer (CMS/HCC) (HCC)- Primary Malignant neoplasm of corpus uteri, except isthmus Encounter for antineoplastic chemotherapy Encounter for screening mammogram for malignant neoplasm of breast Screening mammogram for breast cancer [facility]* Diagnosis Encounter for screening mammogram for malignant neoplasm of breast Endometrial cancer (CMS/HCC) (HCC) Malignant neoplasm of corpus uteri, except isthmus [facility]* Diagnosis Endometrial cancer (CMS/HCC) (HCC)- Primary Malignant neoplasm of corpus uteri, except isthmus Other specified complication of vascular prosthetic devices, implants and grafts, initial encounter (HCC) [facility]* Diagnosis Rash- Primary Rash and other nonspecific skin eruption [facility]* Diagnosis Endometrial cancer (CMS/HCC) (HCC)- Primary Malignant neoplasm of corpus uteri, except isthmus Encounter for antineoplastic chemotherapy 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 [facility]* Diagnosis Endometrial cancer (CMS/HCC) (HCC)- Primary Malignant neoplasm of corpus uteri, except isthmus Encounter for antineoplastic chemotherapy 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 [facility]* Diagnosis Endometrial cancer (CMS/HCC) (HCC)- Primary Malignant neoplasm of corpus uteri, except isthmus Encounter for antineoplastic chemotherapy [facility]* Diagnosis Uterine cancer (CMS/HCC) (HCC)- Primary Malignant neoplasm of uterus, part unspecified Malignant neoplasm of endometrium (HCC) Malignant neoplasm of corpus uteri, except isthmus [facility]* Diagnosis Uterine cancer (CMS/HCC) (HCC)- Primary Malignant neoplasm of uterus, part unspecified Uterine cancer (CMS/HCC) (HCC) Malignant neoplasm of uterus, part unspecified Malignant neoplasm of endometrium (HCC) Malignant neoplasm of corpus uteri, except isthmus Postoperative state Other postprocedural status Postoperative state Other postprocedural status [facility]* Diagnosis Endometrial cancer (CMS/HCC) (HCC)- Primary Malignant neoplasm of corpus uteri, except isthmus Encounter for antineoplastic chemotherapy [facility]* Diagnosis Endometrial cancer (CMS/HCC) (HCC) Malignant neoplasm of corpus uteri, except isthmus Other specified complication of vascular prosthetic devices, implants and grafts, initial encounter (HCC) [facility]* Diagnosis Endometrial cancer (CMS/HCC) (HCC) Malignant neoplasm of corpus uteri, except isthmus Other specified complication of vascular prosthetic devices, implants and grafts, initial encounter (HCC) [facility]* Diagnosis Elevated TSH- Primary Other abnormal blood chemistry Abnormal results of thyroid function studies Nonspecific abnormal results of thyroid function study [facility]* Diagnosis Endometrial cancer (CMS/HCC) (HCC) Malignant neoplasm of corpus uteri, except isthmus Other specified complication of vascular prosthetic devices, implants and grafts, initial encounter (HCC) [facility]* Diagnosis Encounter for antineoplastic chemotherapy- Primary Endometrial cancer (CMS/HCC) (HCC) Malignant neoplasm of corpus uteri, except isthmus Chemotherapy-induced fatigue Chemotherapy-induced nausea [facility]* Diagnosis Endometrial cancer (CMS/HCC) (HCC) Malignant neoplasm of corpus uteri, except isthmus Other specified complication of vascular prosthetic devices, implants and grafts, initial encounter (HCC) Encounter for antineoplastic chemotherapy- Primary Endometrial cancer (CMS/HCC) (HCC) Malignant neoplasm of corpus uteri, except isthmus [facility]* Diagnosis Encounter for antineoplastic chemotherapy- Primary Endometrial cancer (CMS/HCC) (HCC) Malignant neoplasm of corpus uteri, except isthmus [facility]* Diagnosis Endometrial cancer (CMS/HCC) (HCC) Malignant neoplasm of corpus uteri, except isthmus Encounter for long-term (current) use of high-risk medication Encounter for long-term (current) use of other medications Other specified complication of vascular prosthetic devices, implants and grafts, initial encounter (HCC) [facility]* Diagnosis Abnormal thyroid function test- Primary Nonspecific abnormal results of thyroid function study [facility]* Diagnosis Other specified complication of vascular prosthetic devices, implants and grafts, initial encounter (HCC)- Primary Endometrial cancer (CMS/HCC) (HCC) Malignant neoplasm of corpus uteri, except isthmus [facility]* Diagnosis Endometrial cancer (CMS/HCC) (HCC)- Primary Malignant neoplasm of corpus uteri, except isthmus Other specified complication of vascular prosthetic devices, implants and grafts, initial encounter (HCC) [facility]* Diagnosis Other specified complication of vascular prosthetic devices, implants and grafts, initial encounter (HCC)- Primary Endometrial cancer (CMS/HCC) (HCC) Malignant neoplasm of corpus uteri, except isthmus [facility]* Diagnosis Endometrial cancer (CMS/HCC) (HCC)- Primary Malignant neoplasm of corpus uteri, except isthmus Other specified complication of vascular prosthetic devices, implants and grafts, initial encounter (HCC) [facility]* Diagnosis Encounter for immunotherapy- Primary Hair loss Unspecified alopecia Vitamin D deficiency, unspecified Endometrial cancer (CMS/HCC) (HCC) Malignant neoplasm of corpus uteri, except isthmus [facility]* Diagnosis Endometrial cancer (HCC)- Primary Malignant neoplasm of corpus uteri, except isthmus Other specified complication of vascular prosthetic devices, implants and grafts, initial encounter [facility]* Diagnosis Endometrial cancer (HCC) Malignant neoplasm of corpus uteri, except isthmus Other specified complication of vascular prosthetic devices, implants and grafts, initial encounter [facility] (narrative)No reason for referral information availableW[facility] Work Phone: Reason for visit Narrative* Episode Based Medications (Routine) - Pending Review Specialty Diagnoses / Procedures Referred By Contac t Referred To Contact Diagnoses Endometrial cancer (CMS/HCC) (HCC) Other specified complication of vascular prosthetic devices, implants and grafts, initial encounter (HCC) Denis Richey MD [address] [place] [address] Phone: tel: fax: [address] [phone] Phone: tel: Referral ID Status Reason Start Date Expiration Date V isits Requested Visits Authorized [id number] Pending Review 03/29/2022 09/25/2022 [facility]* Auth/Cert (Routine) Specialty Diagnoses / Procedures Referred By Anjumac t Referred To Contact Diagnoses Malignant neoplasm of endometrium (HCC) Procedures MN LAPS BI TOT PEL LMPHADEC & VIRAL-AORTIC LYMPH BX 1 MN BX ABDL/RETROPERITONEAL MASS PRQ NEEDLE MN LAPS SURG RETROPERITONEAL LYMPH NODE BX 1/SUPPLY ASSISTANT MN LAPS SURG BILATERAL TOTAL PELVIC LMPHADECTOMY RETROPERITONEUM LYMPH NODE BIOPSY Denis Richey MD [address] [address] Phone: tel: fax: Referral ID Status Reason Start Date Expiration Date Visits Re quested Visits Authorized [id number] 04/10/2024 1 [facility]* Episode Based Medications (Routine) - Closed Specialty Diagnoses / Procedures Referred By Anjumac t Referred To Contact Diagnoses Endometrial cancer (CMS/HCC) (HCC) Other specified complication of vascular prosthetic devices, implants and grafts, initial encounter (HCC) Denis Richey MD [address] [address] Phone: tel: fax: [address] [phone] Phone: tel: Referral ID Status Reason Start Date Expiration Date Visits Re quested Visits Authorized [id number] Closed 03/29/2022 09/25/2022 1 1 [facility] for visit Narrative* Episode Based Medications (Routine) - Authorized Specialty Diagnoses / Procedures Referred By Anjumac t Referred To Contact Diagnoses Endometrial cancer (CMS/HCC) (HCC) Other specified complication of vascular prosthetic devices, implants and grafts, initial encounter (HCC) Denis Richey MD [address] [address] Phone: tel: fax: [facility] [place] [place] [address] Phone: tel: Referral ID Status Reason Start Date Expiration Date V isits Requested Visits Authorized [id number] Authorized 05/08/2024 05/03/2025 [facility] Episode Based Medications (Routine) - Authorized Specialty Diagnoses / Procedures Referred By Contramon t Referred To Contact Diagnoses Endometrial cancer (HCC) Other specified complication of vascular prosthetic devices, implants and grafts, initial encounter Denis Richey MD [address] [place] [address] Phone: tel: fax: [facility] [address] [place] [address] Phone: tel: Referral ID Status Reason Start Date Expiration Date V isits Requested Visits Authorized [id number] Authorized 05/08/2024 05/03/2025 1 1 [facility] Summary Purpose Family History Relationship Condition Age at Onset Recorded Date/T joaquina Not Specified Arthritis Unknown father Malignant neoplasm Unknown sister Depression Unknown Disorder of thyroid Unknown Hypertension Unknown Malignant neoplasm of skin Unknown Diabetes mellitus Unknown grandmother Osteoporosis Unknown mother Hypertension Unknown aunt Malignant neoplasm Unknown Advance Directives Advance Directive Response Recorded Date/ Time Advance Directives on File No September 08, 2020 9:47am Advance Directives Yes September 08 9:47am Living Will Yes February 17 10:26am Power of Talend Developer Yes February 17, 2021 10:26am Advance Directive Response Recorded Date/ Time Advance Directives on File No September 08, 2020 9:47am Name of Medical Power of Talend Developer recalled November 09, 2021 4:27pm Advance Directives Yes September 08 9:47am Living Will Yes November 09 4:27pm Power of Talend Developer Yes November 09 022 4:27pm Advance Directive Response Recorded Date/ Time Advance Directives on File No September 08, 2020 8:47am Advance Directives Yes September 08 8:47am Living Will Yes November 09 3:27pm Power of Talend Developer Yes November 09 022 3:27pm Advance Directive Response Recorded Date/ Time Advance Directives Yes September 08 9:47am Living Will Yes November 09 4:27pm Power of Talend Developer Yes November 09 022 4:27pm Advance Directive Response Recorded Date/ Time Name of Medical Power of Talend Developer SHERRON LAU - DAUGHTER July 01, 2022 12:06pm Advance Directives Yes September 08 9:47am Living Will Yes July 01, 2022 12:06pm Power of Talend Developer Yes July 01 12:06pm Advance Directive Response Recorded Date/ Time Name of Medical Power of Talend Developer Sherron Lau July 01, 2022 6:01pm Advance Directives Yes September 08 9:47am Living Will Yes July 01, 2022 6:01pm Power of Talend Developer Yes July 01 6:01pm Advance Directive Response Recorded Date/ Time Advance Directives Yes September 08 9:47am Living Will Yes July 01, 2022 6:01pm Power of Talend Developer Yes July 01 6:01pm Advance Directive Response Recorded Date/ Time Advance Directives Yes September 08 8:47am Living Will Yes July 01, 2022 5:01pm Power of Talend Developer Yes July 01 5:01pm Date Activated Date Inactivated Comments 04/16/2024 12:14 PM 04/17/2024 4:42 PM Date Activated Date Inactivated Comments 04/16/2024 12:14 PM 04/16/2024 12:14 PM Date Activated Date Inactivated Comments 04/16/2024 12:14 PM 04/17/2024 4:42 PM Date Activated Date Inactivated Comments 04/16/2024 12:14 PM 04/16/2024 12:14 PM Advance Directive Response Recorded Date/ Time Advance Directives Yes September 08 9:47am Documents on File Type Date Recorded Patient Denial Resolution Specialist Expl anation Advance Directives and Livin g Will 07/19/2024 11:14 AM Power of Talend Developer 07/19/2024 11:14 AM Documents on File Type Date Recorded Patient Denial Resolution Specialist Expl anation Advance Directives and Livin g Will 07/19/2024 11:14 AM Power of Talend Developer 07/19/2024 11:14 AM Chief Complaint and Reason for Visit Chief Complaint TWO WK POST OP HEMOR RHOIDECTOMY 02/24 ENDOMETRIAL CANCER 3 MO - LABS PRIOR - REVIEW CT SCANS SCREENING ONC/HEME ABNORMAL MAMM Reason for Visit Cancer of endometriu m Regional lymph node metastasis present Chief Complaint 3 MO - LABS PRIOR - REVIEW CT SCANS SCREENING ONC/HEME ABNORMAL MAMM ABNORMAL SCREENING MAMM Reason for Visit Cancer of endometriu m Regional lymph node metastasis present Chief Complaint SCREENING ONC/HEME ABNORMAL MAMM ABNORMAL SCREENING MAMM Chief Complaint SCREENING ABNORMAL MAMM ABNORMAL SCREENING MAMM ONC/HEME ENDOMETRIAL CANCER Chief Complaint ABNORMAL SCREENING M AMM ONC/HEME ENDOMETRIAL CANCER 3 MO - LABS WITH CT -REVIEW SCANS ALLERGIC REACTION Reason for Visit Cancer of endometriu m Regional lymph node metastasis present Chief Complaint ENDOMETRIAL CANCER 3 MO - LABS WITH CT -REVIEW SCANS ALLERGIC REACTION PORT REMOVAL 6 MONTH FOLLOW UP, ABN MAMM 06/28/21 ONC/HEME Reason for Visit Cancer of endometriu m Regional lymph node metastasis present Encounter for adjustment or management of vascular access device Chief Complaint 6 MONTH FOLLOW UP, A BN MAMM 06/28/21 3 MO - LABS 1 WK PRIOR ONC/HEME ENDOMETRIAL CANCER HIGH RISK MED lab draw Reason for Visit Cancer of endometriu m Regional lymph node metastasis present Chief Complaint ONC/HEME ENDOMETRIAL CANCER HIGH RISK MED lab draw S/O EVERY 3 WEEKS Chief Complaint ENDOMETRIAL CANCER HIGH RISK MED lab draw S/O EVERY 3 WEEKS S/O EVERY 3 WEEKS Chief Complaint ENDOMETRIAL CANCER HIGH RISK MED lab draw S/O EVERY 3 WEEKS S/O EVERY 3 WEEKS ENDOMETRIAL CA NEUTROPENIC FEVER Reason for Visit Fever and neutropeni a Hx of cancer of uterus Thrombocytopenia Chief Complaint ENDOMETRIAL CANCER HIGH RISK MED lab draw S/O EVERY 3 WEEKS S/O EVERY 3 WEEKS ENDOMETRIAL CA NEUTROPENIC FEVER NEUTROPENIC FEVER Reason for Visit Fever and neutropeni a Hx of cancer of uterus Thrombocytopenia Chief Complaint lab draw S/O EVERY 3 WEEKS S/O EVERY 3 WEEKS ENDOMETRIAL CA NEUTROPENIC FEVER NEUTROPENIC FEVER S/O EVERY 3 WEEKS Reason for Visit Hx of cancer of uter us Thrombocytopenia Fever and neutropenia Chief Complaint S/O EVERY 3 WEEKS S/O EVERY 3 WEEKS ENDOMETRIAL CA NEUTROPENIC FEVER NEUTROPENIC FEVER S/O EVERY 3 WEEKS S/O EVERY 3 WEEKS Reason for Visit Hx of cancer of uter us Thrombocytopenia Fever and neutropenia Chief Complaint S/O EVERY 3 WEEKS S/O EVERY 3 WEEKS ENDOMETRIAL CA NEUTROPENIC FEVER NEUTROPENIC FEVER S/O EVERY 3 WEEKS S/O EVERY 3 WEEKS ENDOMETRIAL CANCER Reason for Visit Hx of cancer of uter us Thrombocytopenia Fever and neutropenia Chief Complaint S/O EVERY 3 WEEKS S/O EVERY 3 WEEKS ENDOMETRIAL CA NEUTROPENIC FEVER NEUTROPENIC FEVER S/O EVERY 3 WEEKS S/O EVERY 3 WEEKS ENDOMETRIAL CANCER ENDOMETRIAL Reason for Visit Hx of cancer of uter us Thrombocytopenia Fever and neutropenia Chief Complaint S/O EVERY 3 WEEKS ENDOMETRIAL CANCER ENDOMETRIAL ENDOMETRIAL CANCER Chief Complaint ENDOMETRIAL CANCER Encounter for antineoplastic chemotherapy Chief Complaint ENDOMETRIAL CANCER Encounter for antineoplastic chemotherapy MALIGNANT NEOPLASM OF ENDOMETRIUM Chief Complaint Encounter for antine oplastic chemotherapy MALIGNANT NEOPLASM OF ENDOMETRIUM Z51.11 Encounter for antineoplastic chemotherapy Chief Complaint Admit Date Encounter for antineoplastic chemotherap y March 25, 2024 8:45am PS MODIFIER April 02, 2024 8: 47am STANDING ORDER May 22, 2024 11:17am STANDING ORDER June 06, 2024 10: 59am Chief Complaint Admit Date Encounter for antineoplastic chemotherap y March 25, 2024 8:45am PS MODIFIER April 02, 2024 8: 47am STANDING ORDER May 22, 2024 11:17am STANDING ORDER June 06, 2024 10: 59am STANDING ORDER June 27, 2024 11:2 0am Chief Complaint Admit Date STANDING ORDER May 22, 2024 11:17am STANDING ORDER June 06, 2024 10: 59am STANDING ORDER June 27, 2024 11:2 0am STANDING ORDER August 07, 2024 11:01 am Chief Complaint Admit Date STANDING ORDER May 22, 2024 11:17am STANDING ORDER June 06, 2024 10: 59am STANDING ORDER June 27, 2024 11:2 0am STANDING ORDER August 07, 2024 11:01 am ENDEMETIAL September 10, 2024 7:53 am Reason for Referral Specialty Diagnoses / Procedures Referred By Asmita martino Referred To Contact Cardiology Diagnoses Endometrial cancer (CMS/HCC) (HCC) Encounter for antineoplastic chemotherapy Procedures Transthoracic echocardiogram (TTE) complete with contrast, bubble, strain, and 3D PRN MN ECHO TTHRC R-T 2D W/WOM-MODE COMPL SPEC&COLR D MN TTE W OR WO FOL WCON,DOPPLER Denis Richey MD [address] [facility], [address] [place] [address] Referral ID Status Reason Start Date Expiration Date Visits Requested Visits Authorized [id number] Pending Review Perform Procedure 10/21/2022 04/19/2023 1 1 Specialty Diagnoses / Procedures Referred By Asmita t Referred To Contact Radiology Diagnoses Encounter for imaging study to restage neoplasm Endometrial cancer (CMS/HCC) (HCC) Secondary malignant neoplasm of vagina (HCC) Left hip pain Pain of left femur Procedures PET/CT skull base to mid thigh Ricarda Drew LOGISTICAL ENGINEER - NET MVC DEVELOPER [address] [facility] [address] [place] [address] Referral ID Status Reason Start Date Expiration Date V isits Requested Visits Authorized [id number] Pending Review 02/06/2023 02/06/2024 1 1 Specialty Diagnoses / Procedures Referred By Contac t Referred To Contact Cardiology Diagnoses Endometrial cancer (CMS/HCC) (HCC) Encounter for antineoplastic chemotherapy Procedures Transthoracic echocardiogram (TTE) complete with contrast, bubble, strain, and 3D PRN MN ECHO TTHRC R-T 2D W/WOM-MODE COMPL SPEC&COLR D MN TTE W OR WO FOL WCON,DOPPLER Lupe Mason LOGISTICAL ENGINEER - NET MVC DEVELOPER [address] [facility] [address] [place] [address] Referral ID Status Reason Start Date Expiration Date Visits Re quested Visits Authorized [id number] Closed 07/17/2023 07/16/2024 1 1 Referral ID Status Reason Start Date Expiration Date V isits Requested Visits Authorized [id number] Pending Review 08/29/2023 08/28/2024 1 1 Specialty Diagnoses / Procedures Referred By Contac t Referred To Contact Radiology Diagnoses Endometrial cancer (CMS/HCC) (HCC) Procedures PET/CT skull base to mid thigh Lupe Mason LOGISTICAL ENGINEER - NET MVC DEVELOPER [address] [facility] [place] [address] Referral ID Status Reason Start Date Expiration Date V isits Requested Visits Authorized [id number] Pending Review 09/21/2023 09/20/2024 1 1 Additional Source Comments INFORMATION SOURCE (unrecogn ized section and content) DATE CREATED AUTHOR 07/21/2020 [facility] DATE CREATED AUTHOR AUTHOR'S ORGANIZ ATION 07/22/2020 [facility] DATE CREATED AUTHOR AUTHOR'S ORGANIZ ATION 09/16/2024 [facility] DATE CREATED AUTHOR AUTHOR'S ORGANIZ ATION [facility] Goals (unrecognized section and content) Goals may be documented in a n alternate sectionGoals may be documented in an alternate sectionGoals may be documented in an alternate sectionGoals may be documented in an alternate sectionGoals may be documented in an alternate sectionGoals may be documented in an alternate sectionGoals may be documented in an alternate sectionGoals may be documented in an alternate sectionGoals may be documented in an alternate sectionGoals may be documented in an alternate sectionGoals may be documented in an alternate sectionGoals may be documented in an alternate sectionGoals may be documented in an alternate sectionGoals may be documented in an alternate sectionGoals may be documented in an alternate sectionGoals may be documented in an alternate sectionGoals may be documented in an alternate sectionGoals may be documented in an alternate section Care Teams (unrecognized sec tion and content) Team Status: Active Member Role Status Dates Dr. Dede Ambrosio DO Family Provider Active Dr. Jose L Wiseman MD Primary Care Provider Active Team Status: Inactive Member Role Status Dates Dr. Jose L Wiseman MD Primary Care Provider, Refer ring Provider Active Dr. Harrison Ignacio MD Attending Provider Active Team Status: Active Member Role Status Dates Dr. Jose L Wiseman MD Primary Care Provider Active Dr. López Navarro MD Attending Provider Active Team Status: Active Member Role Status Dates Dr. Jose L Wiseman MD Primary Care Provider Active Dr. Harrison Ignacio MD Attending Provider, Referrin g Provider Active Dr. Denis Richey MD Other Provider Active Team Status: Inactive Member Role Status Dates Dr. Jose L Wiseman MD Primary Care Provider Active Dr. Harrison Ignacio MD Attending Provider Active Dr. Denis Richey MD Other Provider Active Team Status: Inactive Member Role Status Dates Dr. Jose L Wiseman MD Primary Care Provider Active Dr. Denis Richey MD Attending Provider, Referring Provider Active Team Status: Inactive Member Role Status Dates Dr. Jose L Wiseman MD Primary Care Provider Active Dr. Denis Richey MD Attending Provider Active Slitter Helper Relationship Specialty Start Date End Date Jose L Wiseman [address] [place] [address] PCP - General 06/30/20 Denis Richey MD [address] [facility] [place] [address] Consulting Physician Gynecologic Oncology 02/21/22 Jeri De Oliveira, RN Nurse Navigator Gynecologic Oncology 03/23/22 Ricarda Drew, LOGISTICAL ENGINEER - NET MVC DEVELOPER [address] [facility] [address] [place] [address] Nurse Practitioner Certified Nurse Practitioner 04/06/22 Slitter Helper Relationship Specialty Start Date End Date Virgen Wisemanbe B [address] [place], [place] [id number] PCP - General 06/30/20 Denis Richey MD [address] [facility] [place] [address] Consulting Physician Gynecologic Oncology 02/21/22 Jeri De Oliveira RN Nurse Navigator Gynecologic Oncology 03/23/22 Ricarda Drew, LOGISTICAL ENGINEER - [facility] [address] [facility] [address] [place], [place] [id number] Nurse Practitioner Certified Nurse Practitioner 04/06/22 Team Status: Active Member Role Status Dates Dr. Jose L Wiseman MD Primary Care Provider Active Dr. Bala Luu MD Attending Provider Active Team Status: Active Member Role Status Dates Dr. Jose L Wiseman MD Primary Care Provider Active VIKI CHOWDARY Attending Provider, Referring Provider Active Team Status: Active Member Role Status Dates Dr. Jose L Wiseman MD Primary Care Provider, Refer ring Provider Active Dr. Anna White DO Emergency Provider Active Dr. Marisa Hay MD Admit Provider, Attending Prov ider Active Slitter Helper Relationship Specialty Start Date End Date Leyla Wisemanongbe B [address] [place] [address] PCP - General 06/30/20 Denis Richey MD [address] [facility] [place], [place] [id number] Consulting Physician Gynecologic Oncology 02/21/22 Jeri De Oliveira, RN Nurse Navigator Gynecologic Oncology 03/23/22 Ricarda Drew APRN - NET MVC DEVELOPER [address] [facility] [address] [place] [address] Nurse Practitioner Certified Nurse Practitioner 04/06/22 Team Status: Active Member Role Status Dates Dr. Jose L Wiseman MD Primary Care Provider, Refer ring Provider Active Dr. Anna White , Emergency Provider Active Dr. Marisa Hay MD Admit Provider, Other Provider Active Dr. Pilo Harrell MD Attending Provider, Other Provid er Active Team Status: Inactive Member Role Status Dates Dr. Jose L Wiseman MD Primary Care Provider, Refer ring Provider Active Dr. Anna White , Emergency Provider Active Dr. Marisa Hay MD Admit Provider, Other Provider Active Dr. Pilo Harrell MD Attending Provider Active Dr. Denis Richey MD Other Provider Active Team Status: Active Member Role Status Dates Dr. Jose L Wiseman MD Primary Care Provider Active Dr. Anna White DO Emergency Provider Active Dr. Marisa Hay MD Admit Provider, Other Provider Active Dr. Pilo Harrell MD Attending Provider, Other Provid er Active Team Status: Inactive Member Role Status Dates Dr. Jose L Wiseman MD Primary Care Provider Active VIKI CHOWDARY Attending Provider, Referring Provider Active Slitter Helper Relationship Specialty Start Date End Date Oleghe, Efewongbe B [address] [place] [address] PCP - General 06/30/20 Denis Richey MD [address] [facility] [place] [address] Consulting Physician Gynecologic Oncology 02/21/22 Jeri De Oliveira, RN Nurse Navigator Gynecologic Oncology 03/23/22 Ricarda Drew APRN - NET MVC DEVELOPER [address] [facility] [address] [place] [address] Nurse Practitioner Certified Nurse Practitioner 04/06/22 Slitter Helper Relationship Specialty Start Date End Date Oleghe, Efewongbe B [address] [place] [address] PCP - General 06/30/20 Denis Richey MD [address] [facility] [place] [address] Consulting Physician Gynecologic Oncology 02/21/22 Jeri De Oliveira, RN Nurse Navigator Gynecologic Oncology 03/23/22 Ricarda Drew, LOGISTICAL ENGINEER - NET MVC DEVELOPER [address] [facility] [address] [place] [address] Nurse Practitioner Certified Nurse Practitioner 04/06/22 Lupe Mason LOGISTICAL ENGINEER - NET MVC DEVELOPER [address] [facility] [address] [place] [address] Nurse Practitioner Nurse Practitioner 07/29/22 Slitter Helper Relationship Specialty Start Date End Date [facility] [address] [facility] [place] [address] PCP - General 06/30/20 Denis Richey MD [address] [facility] [place] [address] Consulting Physician Gynecologic Oncology 02/21/22 Jeri De Oliveira, RN Nurse Navigator Gynecologic Oncology 03/23/22 Ricarda Drew, LOGISTICAL ENGINEER - NET MVC DEVELOPER [address] [facility] [address] [place] [address] Nurse Practitioner Certified Nurse Practitioner 04/06/22 Lupe Mason LOGISTICAL ENGINEER - NET MVC DEVELOPER [address] [facility] [address] [place] [address] Nurse Practitioner Nurse Practitioner 07/29/22 Slitter Helper Relationship Specialty Start Date End Date [facility] [address] [place] [address] PCP - General 06/30/20 Denis Richey MD [address] [facility] [place] [address] Consulting Physician Gynecologic Oncology 02/21/22 Jeri De Oliveira, RN Nurse Navigator Gynecologic Oncology 03/23/22 Ricarda Drew LOGISTICAL ENGINEER - NET MVC DEVELOPER [address] [facility] [address] [place] [address] Nurse Practitioner Certified Nurse Practitioner 04/06/22 Lupe Mason LOGISTICAL ENGINEER - NET MVC DEVELOPER [address] [facility] [address] [place] [address] Nurse Practitioner Nurse Practitioner 07/29/22 Slitter Helper Relationship Specialty Start Date End Date Jose L Wiseman [address] [place] [address] PCP - General 06/30/20 Denis Richey MD [address] [facility] [place] [address] Consulting Physician Gynecologic Oncology 02/21/22 Jeri De Oliveira, RN Nurse Navigator Gynecologic Oncology 03/23/22 Ricarda Drew LOGISTICAL ENGINEER - NET MVC DEVELOPER [address] [address] Nurse Practitioner Certified Nurse Practitioner 04/06/22 Lupe Mason LOGISTICAL ENGINEER - NET MVC DEVELOPER [address] [facility] [address] [place] [address] Nurse Practitioner Nurse Practitioner 07/29/22 Team Status: Inactive Member Role Status Dates Dr. Jose L Wiseman MD Primary Care Provider Active LUPE MASON STRATEGIC ACCOUNT MANAGER-C Attending Provider, Referring Provi duc Active Slitter Helper Relationship Specialty Start Date End Date Jose L Wiseman [address] [place] [address] PCP - General 06/30/20 Denis Richey MD [address] [facility] [place] [address] Consulting Physician Gynecologic Oncology 02/21/22 Jeri De Oliveira, RN Nurse Navigator Gynecologic Oncology 03/23/22 Ricarda Drew APRN - NET MVC DEVELOPER [address] [facility] [address] [place] [address] Nurse Practitioner Certified Nurse Practitioner 04/06/22 Lupe Mason APRN - NET MVC DEVELOPER [address] [facility] [address] [place] [address] Nurse Practitioner Nurse Practitioner 07/29/22 Era Richmond MD [address] [facility] [address] [place] [phone] Consulting Physician Gynecologic Oncology 09/01/22 Slitter Helper Relationship Specialty Start Date End Date Jose L Wiseman [address] [place] [address] PCP - General 06/30/20 Denis Richey MD [address] [facility] [place] [address] Consulting Physician Gynecologic Oncology 02/21/22 Jeri De Oliveira, RN Nurse Navigator Gynecologic Oncology 03/23/22 Ricarda Drew APRN - NET MVC DEVELOPER [address] [facility] [address] [place] [address] Nurse Practitioner Certified Nurse Practitioner 04/06/22 Lupe Mason APRN - CNP [address] [facility] [address] [place] [address] Nurse Practitioner Nurse Practitioner 07/29/22 Era Richmond MD [address] [facility] [address] [place] [address] Consulting Physician Gynecologic Oncology 09/01/22 Slitter Helper Relationship Specialty Start Date End Date Virgen Wisemanzoie Glynn [address] [place] [address] PCP - General 06/30/20 Denis Richey MD [address] [place] [place] [address] Consulting Physician Gynecologic Oncology 02/21/22 Jeri De Oliveira, RN Nurse Navigator Gynecologic Oncology 03/23/22 Ricarda Drew APRN - NET MVC DEVELOPER [address] [facility] [address] [place], [place] [address] [phone] Nurse Practitioner Certified Nurse Practitioner 04/06/22 Lupe Mason APRN - NET MVC DEVELOPER [address] [facility] [address] [place] [address] Nurse Practitioner Nurse Practitioner 07/29/22 Era Richmond MD [address] [facility] [address] [place] [address] Consulting Physician Gynecologic Oncology 09/01/22 Slitter Helper Relationship Specialty Start Date End Date Deontevannesa Leylaavelina Glynn [address] [place] [address] PCP - General 06/30/20 Denis Richey MD [address] [place] [place] [address] Consulting Physician Gynecologic Oncology 02/21/22 Jeri De Oliveira, RN Nurse Navigator Gynecologic Oncology 03/23/22 Ricarda Drew APRN - NET MVC DEVELOPER [address] [facility] [address] [place] [address] Nurse Practitioner Certified Nurse Practitioner 04/06/22 Lupe Mason APRN - RASHAD [address] [facility] [address] [place] [address] Nurse Practitioner Nurse Practitioner 07/29/22 Era Richmond MD [address] [facility] [address] [place] [phone] Consulting Physician Gynecologic Oncology 09/01/22 Slitter Helper Relationship Specialty Start Date End Date Jose L Wiseman [address] [place] [address] PCP - General 06/30/20 Denis Richey MD [address] [facility] [place] [address] Consulting Physician Gynecologic Oncology 02/21/22 Jeri De Oliveira, RN Nurse Navigator Gynecologic Oncology 03/23/22 Ricarda Drew APRN - NET MVC DEVELOPER [address] [facility] [address] [place], [place] [id number] [phone] Nurse Practitioner Certified Nurse Practitioner 04/06/22 Lupe Mason APRN - NET MVC DEVELOPER [address] [facility] [address] [place] [address] Nurse Practitioner Nurse Practitioner 07/29/22 Era Richmond MD [address] [facility] [address] [place] [address] Consulting Physician Gynecologic Oncology 09/01/22 Slitter Helper Relationship Specialty Start Date End Date Jose L Wiseman [facility] [place] [address] PCP - General 06/30/20 Denis Richey MD [address] [facility] [place] [address] Consulting Physician Gynecologic Oncology 02/21/22 Jeri De Oliveira, RN Nurse Navigator Gynecologic Oncology 03/23/22 Ricarda Drew APRN - NET MVC DEVELOPER [address] [facility] [address] [place], [place] [id number] Nurse Practitioner Certified Nurse Practitioner 04/06/22 Lupe Mason APRN - NET MVC DEVELOPER [address] [facility] [address] [place] [address] Nurse Practitioner Nurse Practitioner 07/29/22 Era Richmond MD [address] [facility] [address] [place] [phone] Consulting Physician Gynecologic Oncology 09/01/22 Slitter Helper Relationship Specialty Start Date End Date Ivone Yaquelingaetanoavelina Glynn PCP - General 06/30/20 Denis Richey MD [address] [facility] [place] [address] Consulting Physician Gynecologic Oncology 02/21/22 Jeri De Oliveira, RN Nurse Navigator Gynecologic Oncology 03/23/22 Ricarda Drew APRN - NET MVC DEVELOPER [address] [facility] [address] [place], [place] [address] Nurse Practitioner Certified Nurse Practitioner 04/06/22 Lupe Mason APRN - NET MVC DEVELOPER [address] [facility] [address] [place] [address] Nurse Practitioner Nurse Practitioner 07/29/22 Era Richmond MD [address] [facility] [address] [place] [address] Consulting Physician Gynecologic Oncology 09/01/22 Slitter Helper Relationship Specialty Start Date End Date Jose L Wiseman [address] [place] [phone] PCP - General Internal Medicine 12/02/22 Denis Richey MD [address] [facility], [address] [place] [address] Consulting Physician Gynecologic Oncology 02/21/22 Jeri De Oliveira, RN Nurse Navigator Gynecologic Oncology 03/23/22 Ricarda Drew APRN - NET MVC DEVELOPER [address] [facility] [address] [place], [place] [id number] [phone] Nurse Practitioner Certified Nurse Practitioner 04/06/22 Lupe Mason APRN - NET MVC DEVELOPER [address] [facility] [address] [place] [address] Nurse Practitioner Nurse Practitioner 07/29/22 Era Richmond MD [address] [facility] [address] [place] [address] Consulting Physician Gynecologic Oncology 09/01/22 Slitter Helper Relationship Specialty Start Date End Date DeontesandraYaquelin whalengaetanoavelina Glynn [address] [place] [address] PCP - General Internal Medicine 12/02/22 Denis Richey MD [address] [facility], [address] [place] [address] Consulting Physician Gynecologic Oncology 02/21/22 Jeri De Oliveira, RN Nurse Navigator Gynecologic Oncology 03/23/22 Ricarda Drew APRN - NET MVC DEVELOPER 161 [facility] [address] [place] [address] Nurse Practitioner Certified Nurse Practitioner 04/06/22 Lupe Mason APRN - NET MVC DEVELOPER 161 [facility] [address] [place] [address] Nurse Practitioner Nurse Practitioner 07/29/22 Era Richmond MD 161 [facility] [address] [place] [phone] Consulting Physician Gynecologic Oncology 09/01/22 Slitter Helper Relationship Specialty Start Date End Date DeontevannesaJose L [address] [place] [phone] PCP - General Internal Medicine 12/02/22 Denis Richey MD 161 [facility] [place] [address] [place] [address] Consulting Physician Gynecologic Oncology 02/21/22 Jeri De Oliveira, RN Nurse Navigator Gynecologic Oncology 03/23/22 Ricarda Drew APRN - NET MVC DEVELOPER 161 [facility] [address] [place] [address] Nurse Practitioner Certified Nurse Practitioner 04/06/22 Lupe Mason APRN - CNP 161 [facility] [address] [place] [address] Nurse Practitioner Nurse Practitioner 07/29/22 Era Richmond MD [address] [facility] [address] [place] [address] Consulting Physician Gynecologic Oncology 09/01/22 Slitter Helper Relationship Specialty Start Date End Date Jose L Wiseman [address] [place] [phone] PCP - General Internal Medicine 12/02/22 Denis Richey MD 161 [facility] [place] [address] [place] [address] Consulting Physician Gynecologic Oncology 02/21/22 Jeri De Oliveira, RN Nurse Navigator Gynecologic Oncology 03/23/22 Ricarda Drew LOGISTICAL ENGINEER - NET MVC DEVELOPER [address] [facility] [address] [place] [address] Nurse Practitioner Certified Nurse Practitioner 04/06/22 Lupe Mason LOGISTICAL ENGINEER - NET MVC DEVELOPER [address] [facility] [place] [address] Nurse Practitioner Nurse Practitioner 07/29/22 Era Richmond MD [address] [facility] [address] [place] [address] Consulting Physician Gynecologic Oncology 09/01/22 Slitter Helper Relationship Specialty Start Date End Date DeontesandraJose L whalen [address] [place] [address] PCP - General Internal Medicine 12/02/22 Denis Richey MD [address] [place] [address] Consulting Physician Gynecologic Oncology 02/21/22 Jeri De Oliveira, RN Nurse Navigator Gynecologic Oncology 03/23/22 Ricarda Drew APRN - NET MVC DEVELOPER [address] [place] [address] Nurse Practitioner Certified Nurse Practitioner 04/06/22 Lupe Mason APRN - NET MVC DEVELOPER [address] [facility] [place] [address] Nurse Practitioner Nurse Practitioner 07/29/22 Era Richmond MD [address] [facility] [address] [place] [phone] Consulting Physician Gynecologic Oncology 09/01/22 Slitter Helper Relationship Specialty Start Date End Date Mary Herrera MD [address] [place] [address] PCP - General Family Medicine 01/20/23 Denis Richey MD [address] [place] [address] Consulting Physician Gynecologic Oncology 02/21/22 Jeri De Oliveira, RN Nurse Navigator Gynecologic Oncology 03/23/22 Ricarda Drew APRN - NET MVC DEVELOPER [address] [place] [address] Nurse Practitioner Certified Nurse Practitioner 04/06/22 Lupe Mason APRN - NET MVC DEVELOPER [address] [place] [address] Nurse Practitioner Nurse Practitioner 07/29/22 Era Richmond MD [address] [place] [address] Consulting Physician Gynecologic Oncology 09/01/22 Slitter Helper Relationship Specialty Start Date End Date Mary Herrera MD [address] [place] [address] PCP - General Family Medicine 01/20/23 Denis Richey MD [address] [place] [place] [address] Consulting Physician Gynecologic Oncology 02/21/22 Jeri De Oliveira, RN Nurse Navigator Gynecologic Oncology 03/23/22 Ricarda Drew LOGISTICAL ENGINEER - NET MVC DEVELOPER [address] [place] [address] Nurse Practitioner Certified Nurse Practitioner 04/06/22 Lupe Mason APRN - NET MVC DEVELOPER [address] [facility] [place] [address] Nurse Practitioner Nurse Practitioner 07/29/22 Era Richmond MD [address] [place] [address] Consulting Physician Gynecologic Oncology 09/01/22 Slitter Helper Relationship Specialty Start Date End Date Mary Herrera MD [address] [place] [address] PCP - General Family Medicine 01/20/23 Denis Richey MD [address] [facility] [address] [place] [address] Consulting Physician Gynecologic Oncology 02/21/22 Jeri De Oliveira, RN Nurse Navigator Gynecologic Oncology 03/23/22 Ricarda Drew APRN - NET MVC DEVELOPER [address] [place] [address] Nurse Practitioner Certified Nurse Practitioner 04/06/22 Lupe Mason APRN - NET MVC DEVELOPER [address] [facility] [place] [address] Nurse Practitioner Nurse Practitioner 07/29/22 Era Richmond MD [address] [facility] [address] [place] [address] Consulting Physician Gynecologic Oncology 09/01/22 Slitter Helper Relationship Specialty Start Date End Date Mary Herrera MD 155 [facility] [place] [address] PCP - General Family Medicine 01/20/23 Denis Richey MD [address] [place] [address] Consulting Physician Gynecologic Oncology 02/21/22 Jeri De Oliveira, RN Nurse Navigator Gynecologic Oncology 03/23/22 Ricarda Drew, LOGISTICAL ENGINEER - NET MVC DEVELOPER [address] [place] [address] Nurse Practitioner Certified Nurse Practitioner 04/06/22 Lupe Mason APRN - NET MVC DEVELOPER [address] [place] [address] Nurse Practitioner Nurse Practitioner 07/29/22 Era Richmond MD [address] [place] [address] Consulting Physician Gynecologic Oncology 09/01/22 Slitter Helper Relationship Specialty Start Date End Date Mary Herrera MD [address] [place] [address] PCP - General Family Medicine 01/20/23 Denis Richey MD [address] [place] [place] [address] Consulting Physician Gynecologic Oncology 02/21/22 Jrei De Oliveira, RN Nurse Navigator Gynecologic Oncology 03/23/22 Ricarda Drew APRN - NET MVC DEVELOPER [address] [place] [address] Nurse Practitioner Certified Nurse Practitioner 04/06/22 Lupe Mason APRN - NET MVC DEVELOPER [address] [facility] [place] [address] Nurse Practitioner Nurse Practitioner 07/29/22 Era Richmond MD [address] [place] [address] Consulting Physician Gynecologic Oncology 09/01/22 Slitter Helper Relationship Specialty Start Date End Date Mary Herrera MD [address] [place] [address] PCP - General Family Medicine 01/20/23 Denis Richey MD [address] [place] [place] [address] Consulting Physician Gynecologic Oncology 02/21/22 Jeri De Oliveira, RN Nurse Navigator Gynecologic Oncology 03/23/22 Ricarda Drew APRN - CNP [address] [facility] [address] [place] [address] Nurse Practitioner Certified Nurse Practitioner 04/06/22 Lupe Mason APRN - CNP 161 [facility] [address] [place] [address] Nurse Practitioner Nurse Practitioner 07/29/22 Era Richmond MD [address] [facility] [address] [place] [phone] Consulting Physician Gynecologic Oncology 09/01/22 Team Status: Active Member Role Status Dates Dr. Dede Ambrosio DO Family Provider Active Team Status: Active Member Role Status Dates Dr. Jose L Wiseman MD Primary Care Provider Active Dr. Rishi Gonzalez MD Attending Provider Active Team Status: Active Member Role Status Dates Dr. Rishi Gonzalez MD Attending Provider Active Team Status: Inactive Member Role Status Dates VIKI CHOWDARY Attending Provider, Referring Provider Active SHARON MATOS Primary Care Provider Active Slitter Helper Relationship Specialty Start Date End Date Mary Herrera MD [address] [place], [place] [phone] PCP - General Family Medicine 01/20/23 Denis Richey MD [address] [facility] [address] [place] [address] Consulting Physician Gynecologic Oncology 02/21/22 Jeri De Oliveira, RN Nurse Navigator Gynecologic Oncology 03/23/22 Ricarda Drew APRN - CNP [address] [facility] [address] [place], [place] [id number] Nurse Practitioner Certified Nurse Practitioner 04/06/22 Lupe Mason APRN - NET MVC DEVELOPER 161 [address] [facility] [address] [place] [address] Nurse Practitioner Nurse Practitioner 07/29/22 Era Richmond MD [address] [facility] [address] [place] [phone] Consulting Physician Gynecologic Oncology 09/01/22 Slitter Helper Relationship Specialty Start Date End Date Mary Herrera MD [address] [place] [id number] PCP - General Family Medicine 01/20/23 Denis Richey MD 161 [facility] [address] [place] [address] Consulting Physician Gynecologic Oncology 02/21/22 Jeri De Oliveira, RN Nurse Navigator Gynecologic Oncology 03/23/22 Ricarda Drew APRN - RASHAD [address] [facility] [address] [place], [place] [id number] Nurse Practitioner Certified Nurse Practitioner 04/06/22 Lupe Mason APRN - CNP 161 [facility] [address] [place] [address] Nurse Practitioner Nurse Practitioner 07/29/22 Era Richmond MD [address] [facility] [address] [place] [phone] Consulting Physician Gynecologic Oncology 09/01/22 Team Status: Inactive Member Role Status Dates VIKI CHOWDARY Attending Provider, Referring Provider Active Slitter Helper Relationship Specialty Start Date End Date Mary Herrera MD [address] [place] [address] PCP - General Family Medicine 01/20/23 Denis Richey MD [address] [place] [address] Consulting Physician Gynecologic Oncology 02/21/22 Jeri De Oliveira, RN Nurse Navigator Gynecologic Oncology 03/23/22 Ricarda Drew LOGISTICAL ENGINEER - NET MVC DEVELOPER [address] [place] [address] Nurse Practitioner Certified Nurse Practitioner 04/06/22 Lupe Mason APRN - NET MVC DEVELOPER [address] [facility] [place] [address] Nurse Practitioner Nurse Practitioner 07/29/22 Era Richmond MD [address] [place] [address] Consulting Physician Gynecologic Oncology 09/01/22 Slitter Helper Relationship Specialty Start Date End Date Mary Herrera MD [address] [place] [address] PCP - General Family Medicine 01/20/23 Denis Richey MD [address] [place] [address] Consulting Physician Gynecologic Oncology 02/21/22 Jeri De Oliveira, RN Nurse Navigator Gynecologic Oncology 03/23/22 Ricarda Drew, LOGISTICAL ENGINEER - NET MVC DEVELOPER [address] [place] [address] Nurse Practitioner Certified Nurse Practitioner 04/06/22 Lupe Mason APRN - NET MVC DEVELOPER [address] [place], [place] [id number] Nurse Practitioner Nurse Practitioner 07/29/22 Era Richmond MD [address] [place] [phone] Consulting Physician Gynecologic Oncology 09/01/22 Baudiilo Castillo MD [address] [place], [place] [phone] Consulting Physician Gynecologic Oncology 04/28/23 Slitter Helper Relationship Specialty Start Date End Date Mary Herrera MD [address] [place], [place] [id number] PCP - General Family Medicine 01/20/23 Denis Richey MD [address] [place], [place] [phone] Consulting Physician Gynecologic Oncology 02/21/22 Jeri De Oliveira, RN Nurse Navigator Gynecologic Oncology 03/23/22 Ricarda Drew APRN - NET MVC DEVELOPER [address] [place], [place] [id number] Nurse Practitioner Certified Nurse Practitioner 04/06/22 Lupe Mason APRN - NET MVC DEVELOPER [address] [place], [place] [id number] Nurse Practitioner Nurse Practitioner 07/29/22 Era Richmond MD [address] [place] [phone] Consulting Physician Gynecologic Oncology 09/01/22 Baudilio Castillo MD [address] [facility] [address] [place] [address] Consulting Physician Gynecologic Oncology 04/28/23 Team Status: Active Member Role Status Dates Dr. Dede Ambrosio DO Family Provider Active Dr. Denis Richey MD Primary Care Provider Active Team Status: Active Member Role Status Dates Dr. Denis Richey MD Primary Care Provider Active Dr. Rishi Gonzalez MD Attending Provider Active Team Status: Inactive Member Role Status Dates VIKI CHOWDARY Attending Provider, Referring Provider Active Dr. Denis Richey MD Primary Care Provider Active Slitter Helper Relationship Specialty Start Date End Date Mary Herrera MD [address] [place] [phone] PCP - General Family Medicine 01/20/23 Denis Richey MD 161 [facility] [address] [place] [address] Consulting Physician Gynecologic Oncology 02/21/22 Jeri De Oliveira, RN Nurse Navigator Gynecologic Oncology 03/23/22 Ricarda Drew APRN - NET MVC DEVELOPER [address] [facility] [address] [place], [place] [id number] Nurse Practitioner Certified Nurse Practitioner 04/06/22 Lupe Mason LOGISTICAL ENGINEER - NET MVC DEVELOPER 161 [facility] [address] [place] [address] Nurse Practitioner Nurse Practitioner 07/29/22 Era Richmond MD [address] [facility] [address] [place] [address] Consulting Physician Gynecologic Oncology 09/01/22 Baudilio Castillo MD [address] [place] [address] Consulting Physician Gynecologic Oncology 04/28/23 Slitter Helper Relationship Specialty Start Date End Date Mary Herrera MD [address] [place] [address] PCP - General Family Medicine 01/20/23 Denis Richey MD [address] [place] [address] Consulting Physician Gynecologic Oncology 02/21/22 Jeri De Oliveira, RN Nurse Navigator Gynecologic Oncology 03/23/22 Ricarda Drew LOGISTICAL ENGINEER - NET MVC DEVELOPER [address] [place] [address] Nurse Practitioner Certified Nurse Practitioner 04/06/22 Lupe Mason LOGISTICAL ENGINEER - NET MVC DEVELOPER [address] [place] [address] Nurse Practitioner Nurse Practitioner 07/29/22 Era Richmond MD [address] [place] [address] Consulting Physician Gynecologic Oncology 09/01/22 Baudilio Castillo MD [address] [place] [address] Consulting Physician Gynecologic Oncology 04/28/23 Slitter Helper Relationship Specialty Start Date End Date Mary Herrera MD [address] [place] [address] PCP - General Family Medicine 01/20/23 Denis Richey MD [address] [place] [address] Consulting Physician Gynecologic Oncology 02/21/22 Jeri De Oliveira, RN Nurse Navigator Gynecologic Oncology 03/23/22 Ricarda Drew APRN - NET MVC DEVELOPER [address] [place] [address] Nurse Practitioner Certified Nurse Practitioner 04/06/22 Lupe Mason APRN - NET MVC DEVELOPER [address] [place], [place] [id number] Nurse Practitioner Nurse Practitioner 07/29/22 Era Richmond MD [address] [place] [phone] Consulting Physician Gynecologic Oncology 09/01/22 Baudilio Castillo MD [address] [place] [address] Consulting Physician Gynecologic Oncology 04/28/23 Slitter Helper Relationship Specialty Start Date End Date Mary Herrera MD [address] [place] [address] PCP - General Family Medicine 01/20/23 Denis Richey MD [address] [place] [address] Consulting Physician Gynecologic Oncology 02/21/22 Jeri De Oliveira, RN Nurse Navigator Gynecologic Oncology 03/23/22 Ricarda Drew APRN - NET MVC DEVELOPER [address] [place] [address] Nurse Practitioner Certified Nurse Practitioner 04/06/22 Lupe Mason APRN - NET MVC DEVELOPER [address] [place] [address] Nurse Practitioner Nurse Practitioner 07/29/22 Era Richmond MD [address] [place] [phone] Consulting Physician Gynecologic Oncology 09/01/22 Baudilio Castillo MD [address] [place], [place] [id number] Consulting Physician Gynecologic Oncology 04/28/23 Slitter Helper Relationship Specialty Start Date End Date Mary Herrera MD [address] [facility] [address] [place], [place] [phone] PCP - General Family Medicine 01/20/23 Denis Richey MD [address] [place], [place] [phone] Consulting Physician Gynecologic Oncology 02/21/22 Jeri De Oliveira RN Nurse Navigator Gynecologic Oncology 03/23/22 Ricarda Drew APRN - NET MVC DEVELOPER [address] [place], [place] [id number] Nurse Practitioner Certified Nurse Practitioner 04/06/22 Lupe Mason APRN - NET MVC DEVELOPER [address] [place], [place] [id number] Nurse Practitioner Nurse Practitioner 07/29/22 Era Richmond MD [address] [place] [phone] Consulting Physician Gynecologic Oncology 09/01/22 Baudilio Castillo MD [address] [place] [address] Consulting Physician Gynecologic Oncology 04/28/23 Slitter Helper Relationship Specialty Start Date End Date Mary Herrera MD [address] [place], [place] [id number] PCP - General Family Medicine 01/20/23 Denis Richey MD [address] [place], [place] [phone] Consulting Physician Gynecologic Oncology 02/21/22 Jeri De Oliveira RN Nurse Navigator Gynecologic Oncology 03/23/22 Ricarda Drew APRN - NET MVC DEVELOPER [address] [place], [place] [id number] Nurse Practitioner Certified Nurse Practitioner 04/06/22 Lupe Mason APRN - [facility] [address] [place] [address] Nurse Practitioner Nurse Practitioner 07/29/22 Era Richmond MD [address] [place] [phone] Consulting Physician Gynecologic Oncology 09/01/22 Baudilio Castillo MD [address] [place], [place] [phone] Consulting Physician Gynecologic Oncology 04/28/23 Slitter Helper Relationship Specialty Start Date End Date Mary Herrera MD [address] [place], [place] [phone] PCP - General Family Medicine 01/20/23 Denis Richey MD [address] [place] [address] Consulting Physician Gynecologic Oncology 02/21/22 Jeri De Oliveira, RN Nurse Navigator Gynecologic Oncology 03/23/22 Ricarda Drew APRN - NET MVC DEVELOPER [address] [place] [address] Nurse Practitioner Certified Nurse Practitioner 04/06/22 Lupe Mason APRN - NET MVC DEVELOPER [address] [facility] [place] [address] Nurse Practitioner Nurse Practitioner 07/29/22 Era Richmond MD [address] [place] [phone] Consulting Physician Gynecologic Oncology 09/01/22 Baudilio Castillo MD [address] [place] [address] Consulting Physician Gynecologic Oncology 04/28/23 Slitter Helper Relationship Specialty Start Date End Date Mary Herrera MD [address] [place] [address] PCP - General Family Medicine 01/20/23 Denis Richey MD [address] [place] [address] Consulting Physician Gynecologic Oncology 02/21/22 Jeri De Oliveira, RN Nurse Navigator Gynecologic Oncology 03/23/22 Ricarda Drew APRN - NET MVC DEVELOPER [address] [place] [address] Nurse Practitioner Certified Nurse Practitioner 04/06/22 Lupe Mason APRN - NET MVC DEVELOPER [address] [facility] [place] [address] Nurse Practitioner Nurse Practitioner 07/29/22 Era Richmond MD [address] [place] [address] Consulting Physician Gynecologic Oncology 09/01/22 Baudilio Castillo MD [address] [facility] [address] [place] [address] Consulting Physician Gynecologic Oncology 04/28/23 Slitter Helper Relationship Specialty Start Date End Date Mary Herrera MD [address] [place] [address] PCP - General Family Medicine 01/20/23 Denis Richey MD [address] [facility] [place] [address] [place] [address] Consulting Physician Gynecologic Oncology 02/21/22 Jeri De Oliveira RN Nurse Navigator Gynecologic Oncology 03/23/22 Ricarda Drew APRN - NET MVC DEVELOPER [address] [place] [address] Nurse Practitioner Certified Nurse Practitioner 04/06/22 Lupe Mason APRN - NET MVC DEVELOPER [address] [facility] [place] [address] Nurse Practitioner Nurse Practitioner 07/29/22 Era Richmond MD [address] [place] [address] Consulting Physician Gynecologic Oncology 09/01/22 Baudilio Castillo MD [address] [place] [address] Consulting Physician Gynecologic Oncology 04/28/23 Slitter Helper Relationship Specialty Start Date End Date Mary Herrera MD [address] [place] [address] PCP - General Family Medicine 01/20/23 Denis Richey MD [address] [place] [address] Consulting Physician Gynecologic Oncology 02/21/22 Jeri De Oliveira, RN Nurse Navigator Gynecologic Oncology 03/23/22 Ricarda Drew LOGISTICAL ENGINEER - NET MVC DEVELOPER [address] [place] [address] Nurse Practitioner Certified Nurse Practitioner 04/06/22 Lupe Mason LOGISTICAL ENGINEER - NET MVC DEVELOPER [address] [place] [address] Nurse Practitioner Nurse Practitioner 07/29/22 Era Richmond MD [address] [place] [address] Consulting Physician Gynecologic Oncology 09/01/22 Baudilio Castillo MD [address] [place] [address] Consulting Physician Gynecologic Oncology 04/28/23 Slitter Helper Relationship Specialty Start Date End Date Mary Herrera MD [address] [place] [address] PCP - General Family Medicine 01/20/23 Denis Richey MD [address] [place] [address] Consulting Physician Gynecologic Oncology 02/21/22 Jeri De Oliveira, RN Nurse Navigator Gynecologic Oncology 03/23/22 Ricarda Drew APRN - NET MVC DEVELOPER [address] [facility] [address] [place] [address] Nurse Practitioner Certified Nurse Practitioner 04/06/22 Lupe Mason APRN - NET MVC DEVELOPER [address] [facility] [place] [address] Nurse Practitioner Nurse Practitioner 07/29/22 Era Richmond MD [address] [place] [phone] Consulting Physician Gynecologic Oncology 09/01/22 Baudilio Castillo MD [address] [facility] [address] [place] [address] Consulting Physician Gynecologic Oncology 04/28/23 Slitter Helper Relationship Specialty Start Date End Date Kavon Colón MD [address] [place] [address] PCP - General Family Medicine 09/21/23 Denis Richey MD [address] [place] [address] Consulting Physician Gynecologic Oncology 02/21/22 Jeri De Oliveira, RN Nurse Navigator Gynecologic Oncology 03/23/22 Ricarda Drew APRN - NET MVC DEVELOPER [address] [place] [address] Nurse Practitioner Certified Nurse Practitioner 04/06/22 Lupe Mason APRN - NET MVC DEVELOPER [address] [place], [place] [id number] Nurse Practitioner Nurse Practitioner 07/29/22 Era Richmond MD [address] [place] [phone] Consulting Physician Gynecologic Oncology 09/01/22 Baudilio Castillo MD [address] [place], [place] [phone] Consulting Physician Gynecologic Oncology 04/28/23 Slitter Helper Relationship Specialty Start Date End Date Kavon Colón MD [address] [facility] [place] [phone] PCP - General Family Medicine 09/21/23 Denis Richey MD [address] [place] [address] Consulting Physician Gynecologic Oncology 02/21/22 Jeri De Oliveira, RN Nurse Navigator Gynecologic Oncology 03/23/22 Ricarda Drew APRN - NET MVC DEVELOPER [address] [place], [place] [id number] Nurse Practitioner Certified Nurse Practitioner 04/06/22 Lupe Mason APRN - NET MVC DEVELOPER [address] [place], [place] [id number] Nurse Practitioner Nurse Practitioner 07/29/22 Era Richmond MD [address] [place] [phone] Consulting Physician Gynecologic Oncology 09/01/22 Baudilio Castillo MD [address] [place], [place] [phone] Consulting Physician Gynecologic Oncology 04/28/23 Slitter Helper Relationship Specialty Start Date End Date Kavon Colón MD [address] [facility] [address] [place], [place] [id number] PCP - General Family Medicine 09/21/23 Denis Richey MD [address] [place], [place] [id number] Consulting Physician Gynecologic Oncology 02/21/22 Jeri De Oliveira, RN Nurse Navigator Gynecologic Oncology 03/23/22 Ricarda Drew APRN - [facility] [address] [place], [place] [id number] Nurse Practitioner Certified Nurse Practitioner 04/06/22 Lupe Mason APRN - NET MVC DEVELOPER [address] [place] [address] Nurse Practitioner Nurse Practitioner 07/29/22 Era Richmond MD [address] [place] [phone] Consulting Physician Gynecologic Oncology 09/01/22 Baudilio Castillo MD [address] [place], [place] [phone] Consulting Physician Gynecologic Oncology 04/28/23 Slitter Helper Relationship Specialty Start Date End Date Kavon Colón MD [address] [place] [address] PCP - General Family Medicine 09/21/23 Denis Richey MD [address] [facility] [address] [place] [address] Consulting Physician Gynecologic Oncology 02/21/22 Jeri De Oliveira, RN Nurse Navigator Gynecologic Oncology 03/23/22 Ricarda Drew APRN - [facility] [address] [facility] [address] [place], [place] [id number] Nurse Practitioner Certified Nurse Practitioner 04/06/22 Lupe Mason APRN - NET MVC DEVELOPER [address] [facility] [address] [place] [address] Nurse Practitioner Nurse Practitioner 07/29/22 Era Richmond MD [address] [facility] [address] [place] [phone] Consulting Physician Gynecologic Oncology 09/01/22 Baudilio Castillo MD [address] [facility] [address] [place] [address] Consulting Physician Gynecologic Oncology 04/28/23 Slitter Helper Relationship Specialty Start Date End Date Kavon Colón MD [address] [place] [address] PCP - General Family Medicine 09/21/23 Denis Richey MD [address] [facility] [address] [place], [place] [phone] Consulting Physician Gynecologic Oncology 02/21/22 Jeri De Oliveira, RN Nurse Navigator Gynecologic Oncology 03/23/22 Ricarda Drew APRN - CNP [address] [facility] [address] [place], [place] [id number] Nurse Practitioner Certified Nurse Practitioner 04/06/22 Lupe Mason APRN - [facility] [address] [facility] [place] [address] Nurse Practitioner Nurse Practitioner 07/29/22 Era Richmond MD [address] [facility] [address] [place] [phone] Consulting Physician Gynecologic Oncology 09/01/22 Baudilio Castillo MD [address] [facility] [address] [place] [address] Consulting Physician Gynecologic Oncology 04/28/23 Slitter Helper Relationship Specialty Start Date End Date Kavon Colón MD [address] [place] [phone] PCP - General Family Medicine 09/21/23 Denis Richey MD [address] [facility] [address] [place] [address] Consulting Physician Gynecologic Oncology 02/21/22 Jeri De Oliveira, RN Nurse Navigator Gynecologic Oncology 03/23/22 Ricarda Drew APRN - [facility] [address] [facility] [address] [place] [address] Nurse Practitioner Certified Nurse Practitioner 04/06/22 Lupe Mason APRN - [facility] [address] [place] [address] Nurse Practitioner Nurse Practitioner 07/29/22 Era Richmond MD [address] [place] [address] Consulting Physician Gynecologic Oncology 09/01/22 Baudilio Castillo MD [address] [place] [address] Consulting Physician Gynecologic Oncology 04/28/23 Slitter Helper Relationship Specialty Start Date End Date Kavon Colón MD [address] [place] [phone] PCP - General Family Medicine 09/21/23 Denis Richey MD [address] [place] [address] Consulting Physician Gynecologic Oncology 02/21/22 Jeri De Oliveira, RN Nurse Navigator Gynecologic Oncology 03/23/22 Ricarda Drew LOGISTICAL ENGINEER - NET MVC DEVELOPER [address] [place], [place] [phone] Nurse Practitioner Certified Nurse Practitioner 04/06/22 Lupe Mason LOGISTICAL ENGINEER - NET MVC DEVELOPER [address] [place] [address] Nurse Practitioner Nurse Practitioner 07/29/22 Era Richmond MD [address] [place] [address] Consulting Physician Gynecologic Oncology 09/01/22 Baudilio Castillo MD [address] [place] [address] Consulting Physician Gynecologic Oncology 04/28/23 Slitter Helper Relationship Specialty Start Date End Date Kavon Colón MD [address] [place] [address] PCP - General Family Medicine 09/21/23 Denis Richey MD [address] [place] [address] Consulting Physician Gynecologic Oncology 02/21/22 Jeri De Oliveira, RN Nurse Navigator Gynecologic Oncology 03/23/22 Ricarda Drew APRN - NET MVC DEVELOPER [address] [place] [address] Nurse Practitioner Certified Nurse Practitioner 04/06/22 Lupe Mason LOGISTICAL ENGINEER - NET MVC DEVELOPER [address] [place] [address] Nurse Practitioner Nurse Practitioner 07/29/22 Era Richmond MD [address] [place] [address] Consulting Physician Gynecologic Oncology 09/01/22 Baudilio Castillo MD [address] [place] [address] Consulting Physician Gynecologic Oncology 04/28/23 Slitter Helper Relationship Specialty Start Date End Date Kavon Colón MD [address] [place] [address] PCP - General Family Medicine 09/21/23 Denis Richey MD [address] [place] [address] Consulting Physician Gynecologic Oncology 02/21/22 Jeri De Oliveira, RN Nurse Navigator Gynecologic Oncology 03/23/22 Ricarda Drew APRN - NET MVC DEVELOPER [address] [place] [address] Nurse Practitioner Certified Nurse Practitioner 04/06/22 Lupe Mason LOGISTICAL ENGINEER - NET MVC DEVELOPER [address] [place] [address] Nurse Practitioner Nurse Practitioner 07/29/22 Era Richmond MD [address] [place] [phone] Consulting Physician Gynecologic Oncology 09/01/22 Baudilio Castillo MD [address] [place] [address] Consulting Physician Gynecologic Oncology 04/28/23 Slitter Helper Relationship Specialty Start Date End Date Kavon Colón MD [address] [place] [address] PCP - General Family Medicine 09/21/23 Denis Richey MD [address] [place], [place] [phone] Consulting Physician Gynecologic Oncology 02/21/22 Jeri De Oliveira, RN Nurse Navigator Gynecologic Oncology 03/23/22 Ricarda Drew, LOGISTICAL ENGINEER - NET MVC DEVELOPER [address] [place], [place] [id number] Nurse Practitioner Certified Nurse Practitioner 04/06/22 Lupe Mason APRN - NET MVC DEVELOPER [address] [place], [place] [phone] Nurse Practitioner Nurse Practitioner 07/29/22 Era Richmond MD [address] [place] [phone] Consulting Physician Gynecologic Oncology 09/01/22 Baudilio Castillo MD [address] [facility] [address] [place], [place] [phone] Consulting Physician Gynecologic Oncology 04/28/23 Slitter Helper Relationship Specialty Start Date End Date Kavon Colón MD [address] [place] [phone] PCP - General Family Medicine 09/21/23 Denis Richey MD [address] [facility] [place] [place] [address] [place], [place] [phone] Consulting Physician Gynecologic Oncology 02/21/22 Jeri De Oliveira, RN Nurse Navigator Gynecologic Oncology 03/23/22 Ricarda Drew APRN - NET MVC DEVELOPER [address] [facility] [address] [place], [place] [id number] Nurse Practitioner Certified Nurse Practitioner 04/06/22 Lupe Mason APRN - NET MVC DEVELOPER [address] [facility] [address] [place], [place] [id number] Nurse Practitioner Nurse Practitioner 07/29/22 Era Richmond MD [address] [place] [phone] Consulting Physician Gynecologic Oncology 09/01/22 Baudilio Castillo MD [address] [place] [address] Consulting Physician Gynecologic Oncology 04/28/23 Slitter Helper Relationship Specialty Start Date End Date Kavon Colón MD [address] [place], [place] [phone] PCP - General Family Medicine 09/21/23 Denis Richey MD [address] [place] [address] Consulting Physician Gynecologic Oncology 02/21/22 Jeri De Oliveira RN Nurse Navigator Gynecologic Oncology 03/23/22 Ricarda Drew APRN - NET MVC DEVELOPER [address] [facility] [address] [place], [place] [id number] Nurse Practitioner Certified Nurse Practitioner 04/06/22 Lupe Mason APRN - NET MVC DEVELOPER [address] [facility] [address] [place] [address] Nurse Practitioner Nurse Practitioner 07/29/22 Era Richmond MD [address] [place] [address] Consulting Physician Gynecologic Oncology 09/01/22 Baudilio Castillo MD [address] [place] [address] Consulting Physician Gynecologic Oncology 04/28/23 Slitter Helper Relationship Specialty Start Date End Date Kavon Colón MD [address] [place] [address] PCP - General Family Medicine 09/21/23 Denis Richey MD [address] [facility] [address] [place], [place] [phone] Consulting Physician Gynecologic Oncology 02/21/22 Jeri De Oliveira, RN Nurse Navigator Gynecologic Oncology 03/23/22 Ricarda Drew APRN - NET MVC DEVELOPER [address] [facility] [address] [place] [address] Nurse Practitioner Certified Nurse Practitioner 04/06/22 Lpue Mason APRN - NET MVC DEVELOPER [address] [facility] [address] [place] [address] Nurse Practitioner Nurse Practitioner 07/29/22 Era Richmond MD [address] [facility] [address] [place] [phone] Consulting Physician Gynecologic Oncology 09/01/22 Baudilio Castillo MD [address] [facility] [address] [place] [address] Consulting Physician Gynecologic Oncology 04/28/23 Slitter Helper Relationship Specialty Start Date End Date Kavon Colón MD [address] [place] [phone] PCP - General Family Medicine 09/21/23 Denis Richey MD [address] [facility] [address] [place] [address] Consulting Physician Gynecologic Oncology 02/21/22 Jeri De Oliveira, RN Nurse Navigator Gynecologic Oncology 03/23/22 Ricarda Drew APRN - NET MVC DEVELOPER [address] [place] [address] Nurse Practitioner Certified Nurse Practitioner 04/06/22 Lupe Mason APRN - NET MVC DEVELOPER [address] [place] [address] Nurse Practitioner Nurse Practitioner 07/29/22 Era Richmond MD [address] [place] [address] Consulting Physician Gynecologic Oncology 09/01/22 Baudilio Castillo MD [address] [place] [address] Consulting Physician Gynecologic Oncology 04/28/23 Slitter Helper Relationship Specialty Start Date End Date Kavon Colón MD [address] [place] [address] PCP - General Family Medicine 09/21/23 Denis Richey MD [address] [place] [address] Consulting Physician Gynecologic Oncology 02/21/22 Jeri De Oliveira, RN Nurse Navigator Gynecologic Oncology 03/23/22 Ricarda Drew APRN - NET MVC DEVELOPER [address] [place] [address] Nurse Practitioner Certified Nurse Practitioner 04/06/22 Lupe Mason APRN - NET MVC DEVELOPER [address] [place] [address] Nurse Practitioner Nurse Practitioner 07/29/22 Era Richmond MD [address] [place] [address] Consulting Physician Gynecologic Oncology 09/01/22 Baudilio Castillo MD [address] [place] [address] Consulting Physician Gynecologic Oncology 04/28/23 Slitter Helper Relationship Specialty Start Date End Date Kavon Colón MD [address] [facility] [address] [place], [place] [phone] PCP - General Family Medicine 09/21/23 Denis Richey MD [address] [place] [address] Consulting Physician Gynecologic Oncology 02/21/22 Jeri De Oliveira, RN Nurse Navigator Gynecologic Oncology 03/23/22 Ricarda Drew LOGISTICAL ENGINEER - NET MVC DEVELOPER [address] [place] [address] Nurse Practitioner Certified Nurse Practitioner 04/06/22 Lupe Mason LOGISTICAL ENGINEER - NET MVC DEVELOPER [address] [place] [address] Nurse Practitioner Nurse Practitioner 07/29/22 Era Richmond MD [address] [place] [address] Consulting Physician Gynecologic Oncology 09/01/22 Baudilio Castillo MD [address] [place] [address] Consulting Physician Gynecologic Oncology 04/28/23 Renay Lucas, LOGISTICAL ENGINEER - NET MVC DEVELOPER [address] [place] [address] Registered Nurse Nurse Practitioner 03/01/24 Slitter Helper Relationship Specialty Start Date End Date Kavon Colón MD [address] [place], [place] [phone] PCP - General Family Medicine 09/21/23 Denis Richey MD [address] [place], [place] [phone] Consulting Physician Gynecologic Oncology 02/21/22 Jeri De Oliveira, RN Nurse Navigator Gynecologic Oncology 03/23/22 Ricarda Drew, LOGISTICAL ENGINEER - NET MVC DEVELOPER [address] [place], [place] [id number] Nurse Practitioner Certified Nurse Practitioner 04/06/22 Lupe Mason, LOGISTICAL ENGINEER - NET MVC DEVELOPER [address] [place] [address] Nurse Practitioner Nurse Practitioner 07/29/22 Era Richmond MD [address] [place] [phone] Consulting Physician Gynecologic Oncology 09/01/22 Baudilio Castillo MD [address] [place], [place] [phone] Consulting Physician Gynecologic Oncology 04/28/23 Renay Lucas, LOGISTICAL ENGINEER - NET MVC DEVELOPER [address] [place] [address] Registered Nurse Nurse Practitioner 03/01/24 Slitter Helper Relationship Specialty Start Date End Date Oleghe, Efewongbe B [address] [place] [address] PCP - General 06/30/20 Denis Richey MD [address] [place] [address], [address] [facility] [place] [address] Consulting Physician Gynecologic Oncology 02/21/22 Jeri De Oliveira, RN Nurse Navigator Gynecologic Oncology 03/23/22 Slitter Helper Relationship Specialty Start Date End Date Oleghe, Efewongbe B [address] [place] [address] PCP - General 06/30/20 Denis Richey MD [address] [place] [address], [address] [facility] [place] [address] Consulting Physician Gynecologic Oncology 02/21/22 Jeri De Oliveira, RN Nurse Navigator Gynecologic Oncology 03/23/22 Ricarda Drew, LOGISTICAL ENGINEER - NET MVC DEVELOPER [address] [facility] [address] [place] [address] Nurse Practitioner Certified Nurse Practitioner 04/06/22 Slitter Helper Relationship Specialty Start Date End Date Oleghe, Efewongbe B [address] [place] [address] PCP - General 06/30/20 Denis Richey MD [address] [place] [address], [address] [place] [address] Consulting Physician Gynecologic Oncology 02/21/22 Jeri De Oliveira, RN Nurse Navigator Gynecologic Oncology 03/23/22 Ricarda Drew, LOGISTICAL ENGINEER - NET MVC DEVELOPER [address] [facility] [address] [place] [address] Nurse Practitioner Certified Nurse Practitioner 04/06/22 Slitter Helper Relationship Specialty Start Date End Date Oleghe, Efewongbe B [address] [place] [address] PCP - General 06/30/20 Denis Richey MD [address] [facility], [address] [place] [address] Consulting Physician Gynecologic Oncology 02/21/22 Jeri De Oliveira, RN Nurse Navigator Gynecologic Oncology 03/23/22 Ricarda Drew, LOGISTICAL ENGINEER - [facility] [address] [facility] [address] [place] [address] Nurse Practitioner Certified Nurse Practitioner 04/06/22 Slitter Helper Relationship Specialty Start Date End Date Oleghe, Efewongbe B [address] [place] [address] PCP - General 06/30/20 Denis Richey MD [address] [facility] [place] [address] Consulting Physician Gynecologic Oncology 02/21/22 Jeri De Oliveira, RN Nurse Navigator Gynecologic Oncology 03/23/22 Ricarad Drew, LOGISTICAL ENGINEER - NET MVC DEVELOPER [address] [facility] [address] [place] [address] Nurse Practitioner Certified Nurse Practitioner 04/06/22 Slitter Helper Relationship Specialty Start Date End Date Oleghe, Efewongbe B [address] [place] [address] PCP - General 06/30/20 Denis Richey MD [address] [facility] [place] [address] Consulting Physician Gynecologic Oncology 02/21/22 Jeri De Oliveira, RN Nurse Navigator Gynecologic Oncology 03/23/22 Ricarda Drew, LOGISTICAL ENGINEER - NET MVC DEVELOPER [address] [facility] [address] [place] [address] Nurse Practitioner Certified Nurse Practitioner 04/06/22 Slitter Helper Relationship Specialty Start Date End Date Oleghe, Efewongbe B [address] [place] [address] PCP - General 06/30/20 Denis Richey MD [address] [facility] [place] [address] Consulting Physician Gynecologic Oncology 02/21/22 Jeri De Oliveira, RN Nurse Navigator Gynecologic Oncology 03/23/22 Ricarda Drew, LOGISTICAL ENGINEER - NET MVC DEVELOPER [address] [facility] [address] [place], [place] [id number] Nurse Practitioner Certified Nurse Practitioner 04/06/22 Slitter Helper Relationship Specialty Start Date End Date Kavon Colón MD [address] [place] [phone] PCP - General Family Medicine 09/21/23 Denis Richey MD [address] [facility] [address] [place] [address] Consulting Physician Gynecologic Oncology 02/21/22 Jeri De Oliveira, RN Nurse Navigator Gynecologic Oncology 03/23/22 Ricarda Drew, JULIA - NET MVC DEVELOPER [address] [facility] [address] [place] [address] Nurse Practitioner Certified Nurse Practitioner 04/06/22 Lupe Mason APRN - NET MVC DEVELOPER [address] [facility] [address] [place] [address] Nurse Practitioner Nurse Practitioner 07/29/22 Era Richmond MD [address] [facility] [address] [place] [phone] Consulting Physician Gynecologic Oncology 09/01/22 Baudilio Castillo MD [address] [facility] [address] [place], [place] [phone] Consulting Physician Gynecologic Oncology 04/28/23 Renay Lucas, LOGISTICAL ENGINEER - NET MVC DEVELOPER [address] [place] [address] Registered Nurse Nurse Practitioner 03/01/24 Slitter Helper Relationship Specialty Start Date End Date Kavon Colón MD [address] [place] [phone] PCP - General Family Medicine 09/21/23 Denis Richey MD [address] [place], [place] [id number] Consulting Physician Gynecologic Oncology 02/21/22 Jeri De Oliveira, RN Nurse Navigator Gynecologic Oncology 03/23/22 Ricarda Drew, LOGISTICAL ENGINEER - NET MVC DEVELOPER [address] [place], [place] [id number] Nurse Practitioner Certified Nurse Practitioner 04/06/22 Lupe Mason, LOGISTICAL ENGINEER - NET MVC DEVELOPER [address] [place] [address] Nurse Practitioner Nurse Practitioner 07/29/22 Era Richmond MD [address] [place] [address] Consulting Physician Gynecologic Oncology 09/01/22 Baudilio Castillo MD [address] [place], [place] [phone] Consulting Physician Gynecologic Oncology 04/28/23 Renay Lucas, LOGISTICAL ENGINEER - NET MVC DEVELOPER [address] [place], [place] [phone] Registered Nurse Nurse Practitioner 03/01/24 Slitter Helper Relationship Specialty Start Date End Date Kavon Colón MD [address] [place] [address] PCP - General Family Medicine 09/21/23 Denis Richey MD [address] [facility] [address] [place] [address] Consulting Physician Gynecologic Oncology 02/21/22 Jeri De Oliveira, RN Nurse Navigator Gynecologic Oncology 03/23/22 Ricarda Drew LOGISTICAL ENGINEER - NET MVC DEVELOPER [address] [facility] [address] [place], [place] [id number] Nurse Practitioner Certified Nurse Practitioner 04/06/22 Lupe Mason, LOGISTICAL ENGINEER - NET MVC DEVELOPER [address] [facility] [place] [address] Nurse Practitioner Nurse Practitioner 07/29/22 Era Richmond MD [address] [facility] [address] [place] [phone] Consulting Physician Gynecologic Oncology 09/01/22 Baudilio Castillo MD [address] [facility] [address] [place] [address] Consulting Physician Gynecologic Oncology 04/28/23 Renay Lucas, LOGISTICAL ENGINEER - NET MVC DEVELOPER [address] [facility] [address] [place] [address] Registered Nurse Nurse Practitioner 03/01/24 Slitter Helper Relationship Specialty Start Date End Date Kavon Colón MD [address] [place] [address] PCP - General Family Medicine 09/21/23 Denis Richey MD [address] [place], [place] [phone] Consulting Physician Gynecologic Oncology 02/21/22 Jeri De Oliveira, RN Nurse Navigator Gynecologic Oncology 03/23/22 Ricarda Drew LOGISTICAL ENGINEER - NET MVC DEVELOPER [address] [place] [address] Nurse Practitioner Certified Nurse Practitioner 04/06/22 Lupe Mason LOGISTICAL ENGINEER - NET MVC DEVELOPER [address] [facility] [place] [address] Nurse Practitioner Nurse Practitioner 07/29/22 Era Richmond MD [address] [place] [phone] Consulting Physician Gynecologic Oncology 09/01/22 Baudilio Castillo MD [address] [facility] [address] [place] [address] Consulting Physician Gynecologic Oncology 04/28/23 Renay Lucas, LOGISTICAL ENGINEER - NET MVC DEVELOPER [address] [place] [address] Registered Nurse Nurse Practitioner 03/01/24 Slitter Helper Relationship Specialty Start Date End Date Kavon Colón MD [address] [place] [address] PCP - General Family Medicine 09/21/23 Denis Richey MD [address] [place] [address] Consulting Physician Gynecologic Oncology 02/21/22 Jeri De Oliveira, RN Nurse Navigator Gynecologic Oncology 03/23/22 Ricarda Drew APRN - NET MVC DEVELOPER [address] [place], [place] [id number] Nurse Practitioner Certified Nurse Practitioner 04/06/22 Lupe Mason APRN - NET MVC DEVELOPER [address] [facility] [address] [place] [address] Nurse Practitioner Nurse Practitioner 07/29/22 Era Richmond MD [address] [facility] [address] [place] [phone] Consulting Physician Gynecologic Oncology 09/01/22 Baudilio Castillo MD [address] [facility] [address] [place] [address] Consulting Physician Gynecologic Oncology 04/28/23 Renay Lucas APRN - NET MVC DEVELOPER [address] [facility] [address] [place] [address] Registered Nurse Nurse Practitioner 03/01/24 Slitter Helper Relationship Specialty Start Date End Date Kavon Colón MD [address] [place] [address] PCP - General Family Medicine 09/21/23 Denis Richey MD [address] [place] [address] [place] [address] Consulting Physician Gynecologic Oncology 02/21/22 Jeri De Oliveira, RN Nurse Navigator Gynecologic Oncology 03/23/22 Ricarda Drew, LOGISTICAL ENGINEER - NET MVC DEVELOPER [address] [place] [address] Nurse Practitioner Certified Nurse Practitioner 04/06/22 Lupe Mason APRN - NET MVC DEVELOPER [address] [place] [address] Nurse Practitioner Nurse Practitioner 07/29/22 Era Richmond MD [address] [place] [phone] Consulting Physician Gynecologic Oncology 09/01/22 Baudilio Castillo MD [address] [place] [address] Consulting Physician Gynecologic Oncology 04/28/23 Renay Lucas, LOGISTICAL ENGINEER - NET MVC DEVELOPER [address] [place] [address] Registered Nurse Nurse Practitioner 03/01/24 Slitter Helper Relationship Specialty Start Date End Date Kavon Colón MD [address] [place] [address] PCP - General Family Medicine 09/21/23 Denis Richey MD [address] [place] [address] Consulting Physician Gynecologic Oncology 02/21/22 Jeri De Oliveira, RN Nurse Navigator Gynecologic Oncology 03/23/22 Ricarda Drew LOGISTICAL ENGINEER - NET MVC DEVELOPER [address] [place] [address] Nurse Practitioner Certified Nurse Practitioner 04/06/22 Lupe Mason APRN - NET MVC DEVELOPER [address] [place] [address] Nurse Practitioner Nurse Practitioner 07/29/22 Era Richmond MD [address] [place] [phone] Consulting Physician Gynecologic Oncology 09/01/22 Baudilio Castillo MD [address] [place], [place] [id number] Consulting Physician Gynecologic Oncology 04/28/23 Renay Lucas, LOGISTICAL ENGINEER - NET MVC DEVELOPER [address] [place] [address] Registered Nurse Nurse Practitioner 03/01/24 Slitter Helper Relationship Specialty Start Date End Date Yvonne Paniagua [address] [place] [address] PCP - General Family Medicine 04/16/24 Denis Richey MD [address] [place] [address] Consulting Physician Gynecologic Oncology 02/21/22 Jeri De Oliveira, RN Nurse Navigator Gynecologic Oncology 03/23/22 Ricarda Drew LOGISTICAL ENGINEER - NET MVC DEVELOPER [address] [place], [place] [id number] Nurse Practitioner Certified Nurse Practitioner 04/06/22 Lupe Mason LOGISTICAL ENGINEER - NET MVC DEVELOPER [address] [place], [place] [id number] Nurse Practitioner Nurse Practitioner 07/29/22 Era Richmond MD [address] [place] [phone] Consulting Physician Gynecologic Oncology 09/01/22 Baudilio Castillo MD [address] [place] [address] Consulting Physician Gynecologic Oncology 04/28/23 Renay Lucas, LOGISTICAL ENGINEER - NET MVC DEVELOPER [address] [place], [place] [id number] Registered Nurse Nurse Practitioner 03/01/24 Slitter Helper Relationship Specialty Start Date End Date Yvonne Paniagua [address] [place] [phone] PCP - General Family Medicine 04/16/24 Denis Richey MD [address] [place], [place] [id number] Consulting Physician Gynecologic Oncology 02/21/22 Jeri De Oliveira, RN Nurse Navigator Gynecologic Oncology 03/23/22 Ricarda Drew, LOGISTICAL ENGINEER - NET MVC DEVELOPER [address] [place], [place] [id number] Nurse Practitioner Certified Nurse Practitioner 04/06/22 Lupe Mason, LOGISTICAL ENGINEER - NET MVC DEVELOPER [address] [place], [place] [id number] Nurse Practitioner Nurse Practitioner 07/29/22 Era Richmond MD [address] [place] [phone] Consulting Physician Gynecologic Oncology 09/01/22 Baudilio Castillo MD [address] [place] [address] Consulting Physician Gynecologic Oncology 04/28/23 Renay Lucas, LOGISTICAL ENGINEER - NET MVC DEVELOPER [address] [place] [address] Registered Nurse Nurse Practitioner 03/01/24 Slitter Helper Relationship Specialty Start Date End Date Yvonne Paniagua [address] [place] [phone] PCP - General Family Medicine 04/16/24 Denis Richey MD [address] [place] [address] Consulting Physician Gynecologic Oncology 02/21/22 Jeri De Oliveira, RN Nurse Navigator Gynecologic Oncology 03/23/22 Ricarda Drew, LOGISTICAL ENGINEER - NET MVC DEVELOPER [address] [place], [place] [id number] Nurse Practitioner Certified Nurse Practitioner 04/06/22 Lupe Mason, LOGISTICAL ENGINEER - NET MVC DEVELOPER [address] [place] [address] Nurse Practitioner Nurse Practitioner 07/29/22 Era Richmond MD [address] [place] [phone] Consulting Physician Gynecologic Oncology 09/01/22 Baudilio Castillo MD [address] [place], [place] [phone] Consulting Physician Gynecologic Oncology 04/28/23 Renay Lucas, LOGISTICAL ENGINEER - NET MVC DEVELOPER [address] [place], [place] [id number] Registered Nurse Nurse Practitioner 03/01/24 Slitter Helper Relationship Specialty Start Date End Date Kavon Colón MD [address] [place] [address] PCP - General Family Medicine 09/21/23 04/15/24 Yvonne Paniagua [address] [place] [phone] PCP - General Family Medicine 04/16/24 Denis Richey MD [address] [facility] [address] [place] [address] Consulting Physician Gynecologic Oncology 02/21/22 Jeri De Oliveira, RN Nurse Navigator Gynecologic Oncology 03/23/22 Ricarda Drew, LOGISTICAL ENGINEER - NET MVC DEVELOPER [address] [facility] [address] [place], [place] [id number] Nurse Practitioner Certified Nurse Practitioner 04/06/22 Lupe Mason LOGISTICAL ENGINEER - NET MVC DEVELOPER [address] [facility] [place] [address] Nurse Practitioner Nurse Practitioner 07/29/22 Era Richmond MD [address] [place] [phone] Consulting Physician Gynecologic Oncology 09/01/22 Baudilio Castillo MD [address] [place], [place] [id number] Consulting Physician Gynecologic Oncology 04/28/23 Renay Lucas, LOGISTICAL ENGINEER - NET MVC DEVELOPER [address] [place] [address] Registered Nurse Nurse Practitioner 03/01/24 Slitter Helper Relationship Specialty Start Date End Date Yvonne Paniagua [address] [place] [phone] PCP - General Family Medicine 04/16/24 Denis Richey MD [address] [place] [address] Consulting Physician Gynecologic Oncology 02/21/22 Jeri De Oliveira, RN Nurse Navigator Gynecologic Oncology 03/23/22 Ricarda Drew, LOGISTICAL ENGINEER - NET MVC DEVELOPER [address] [place], [place] [phone] Nurse Practitioner Certified Nurse Practitioner 04/06/22 Lupe Mason LOGISTICAL ENGINEER - NET MVC DEVELOPER [address] [place] [address] Nurse Practitioner Nurse Practitioner 07/29/22 Era Richmond MD [address] [place] [address] Consulting Physician Gynecologic Oncology 09/01/22 Baudilio Castillo MD [address] [place] [address] Consulting Physician Gynecologic Oncology 04/28/23 Renay Lucas, LOGISTICAL ENGINEER - NET MVC DEVELOPER [address] [place] [address] Registered Nurse Nurse Practitioner 03/01/24 Rosie Fuller, LOGISTICAL ENGINEER - NET MVC DEVELOPER [address] [place] [address] Nurse Practitioner Nurse Practitioner 05/16/24 Slitter Helper Relationship Specialty Start Date End Date Siva Yvonne Bedolla [address] [place] [phone] PCP - General Family Medicine 04/16/24 Denis Richey MD [address] [facility] [address] [place] [address] Consulting Physician Gynecologic Oncology 02/21/22 Jeri De Oliveira, RN Nurse Navigator Gynecologic Oncology 03/23/22 Ricarda Drew, LOGISTICAL ENGINEER - NET MVC DEVELOPER [address] [facility] [address] [place], [place] [id number] Nurse Practitioner Certified Nurse Practitioner 04/06/22 Lupe Mason, LOGISTICAL ENGINEER - NET MVC DEVELOPER [address] [facility] [place] [address] Nurse Practitioner Nurse Practitioner 07/29/22 Era Richmond MD [address] [place] [address] Consulting Physician Gynecologic Oncology 09/01/22 Baudilio Castillo MD [address] [place] [address] Consulting Physician Gynecologic Oncology 04/28/23 Renay Lucas, LOGISTICAL ENGINEER - NET MVC DEVELOPER [address] [place] [address] Registered Nurse Nurse Practitioner 03/01/24 Rosie Fuller, LOGISTICAL ENGINEER - NET MVC DEVELOPER [address] [place] [address] Nurse Practitioner Nurse Practitioner 05/16/24 Slitter Helper Relationship Specialty Start Date End Date Yvonne Paniagua [address] [place] [phone] PCP - General Family Medicine 04/16/24 Denis Richey MD [address] [place] [address] Consulting Physician Gynecologic Oncology 02/21/22 Jeri De Oliveira, RN Nurse Navigator Gynecologic Oncology 03/23/22 Ricarda Drew, LOGISTICAL ENGINEER - NET MVC DEVELOPER [address] [place] [address] Nurse Practitioner Certified Nurse Practitioner 04/06/22 Lupe Mason, LOGISTICAL ENGINEER - NET MVC DEVELOPER [address] [place] [address] Nurse Practitioner Nurse Practitioner 07/29/22 Era Richmond MD [address] [place] [address] Consulting Physician Gynecologic Oncology 09/01/22 Baudilio Castillo MD [address] [place] [address] Consulting Physician Gynecologic Oncology 04/28/23 Renay Lucas, LOGISTICAL ENGINEER - NET MVC DEVELOPER [address] [place] [address] Registered Nurse Nurse Practitioner 03/01/24 Rosie Fuller LOGISTICAL ENGINEER - NET MVC DEVELOPER [address] [place] [address] Nurse Practitioner Nurse Practitioner 05/16/24 Slitter Helper Relationship Specialty Start Date End Date Kavon Colón MD [address] [place] [address] PCP - General Family Medicine 09/21/23 04/15/24 Yvonne Paniagua [address] [facility] [address] [place] [phone] PCP - General Family Medicine 04/16/24 Denis Richey MD [address] [facility] [place] [address] [place] [address] Consulting Physician Gynecologic Oncology 02/21/22 Jeri De Oliveira, RN Nurse Navigator Gynecologic Oncology 03/23/22 Ricarda Drew LOGISTICAL ENGINEER - NET MVC DEVELOPER [address] [facility] [address] [place] [address] Nurse Practitioner Certified Nurse Practitioner 04/06/22 Lupe Mason, LOGISTICAL ENGINEER - NET MVC DEVELOPER [address] [facility] [address] [place] [address] Nurse Practitioner Nurse Practitioner 07/29/22 Era Richmond MD [address] [place] [phone] Consulting Physician Gynecologic Oncology 09/01/22 Baudilio Castillo MD [address] [place] [address] Consulting Physician Gynecologic Oncology 04/28/23 Renay Lucas, LOGISTICAL ENGINEER - NET MVC DEVELOPER [address] [place] [address] Registered Nurse Nurse Practitioner 03/01/24 Rosie Fuller, LOGISTICAL ENGINEER - NET MVC DEVELOPER [address] [place] [address] Nurse Practitioner Nurse Practitioner 05/16/24 Slitter Helper Relationship Specialty Start Date End Date Yvonne Paniagua [address] [place] [phone] PCP - General Family Medicine 04/16/24 Denis Richey MD [address] [place] [address] Consulting Physician Gynecologic Oncology 02/21/22 Jeri De Oliveira, RN Nurse Navigator Gynecologic Oncology 03/23/22 Ricarda Drew, LOGISTICAL ENGINEER - [facility] [address] [place], [place] [id number] Nurse Practitioner Certified Nurse Practitioner 04/06/22 Lupe Mason, LOGISTICAL ENGINEER - NET MVC DEVELOPER [address] [place] [address] Nurse Practitioner Nurse Practitioner 07/29/22 Era Richmond MD [address] [place] [address] Consulting Physician Gynecologic Oncology 09/01/22 Baudilio Castillo MD [address] [place], [place] [phone] Consulting Physician Gynecologic Oncology 04/28/23 Renay Lucas, LOGISTICAL ENGINEER - NET MVC DEVELOPER [address] [place] [address] Registered Nurse Nurse Practitioner 03/01/24 Rosie Fuller, LOGISTICAL ENGINEER - NET MVC DEVELOPER [address] [place] [address] Nurse Practitioner Nurse Practitioner 05/16/24 Slitter Helper Relationship Specialty Start Date End Date Yvonne Paniagua [address] [place] [phone] PCP - General Family Medicine 04/16/24 Denis Richey MD [address] [place], [place] [id number] Consulting Physician Gynecologic Oncology 02/21/22 Jeri De Oliveira, RN Nurse Navigator Gynecologic Oncology 03/23/22 Ricarda Drew, LOGISTICAL ENGINEER - NET MVC DEVELOPER [address] [place] [address] Nurse Practitioner Certified Nurse Practitioner 04/06/22 Lupe Mason, LOGISTICAL ENGINEER - NET MVC DEVELOPER [address] [place], [place] [id number] Nurse Practitioner Nurse Practitioner 07/29/22 Era Richmond MD [address] [place] [phone] Consulting Physician Gynecologic Oncology 09/01/22 Baudilio Castillo MD [address] [place] [address] Consulting Physician Gynecologic Oncology 04/28/23 Renay Lucas LOGISTICAL ENGINEER - NET MVC DEVELOPER [address] [place] [address] Registered Nurse Nurse Practitioner 03/01/24 Rosie Fuller, LOGISTICAL ENGINEER - NET MVC DEVELOPER [address] [place] [address] Nurse Practitioner Nurse Practitioner 05/16/24 Team Status: Active Member Role Status Dates Dr. Denis Richey MD Primary Care Provider Active Team Status: Inactive Member Role Status Dates Dr. Denis Richey MD Primary Care Provider Active Start: March 25, 2024 End: March 25, 2024 Dr. Denis Richey MD Attending Provider Active Start: March 25, 2024 End: March 25, 2024 Dr. Denis Richey MD Referring Provider Active Start: March 25, 2024 End: March 25, 2024 Team Status: Active Member Role Status Dates Dr. Denis Richey MD Primary Care Provider Active Start: March 25, 2024 Dr. Rishi Gonzalez MD Attending Provider Active S tart: March 25, 2024 Team Status: Inactive Member Role Status Dates Dr. Denis Richey MD Primary Care Provider Active Start: April 02, 2024 End: April 02, 2024 Dr. Denis Richey MD Attending Provider Active Start: April 02, 2024 End: April 02, 2024 Dr. Denis Richey MD Referring Provider Active Start: April 02, 2024 End: April 02, 2024 Team Status: Inactive Member Role Status Dates Dr. Denis Richey MD Primary Care Provider Active Start: May 22, 2024 End: May 24, 2024 MIK Corado Attending Provider Active S tart: May 22, 2024 End: May 24, 2024 MIK Corado Referring Provider Active S tart: May 22, 2024 End: May 24, 2024 Team Status: Inactive Member Role Status Dates Dr. Denis Richey MD Primary Care Provider Active Start: June 06, 2024 End: June 24, 2024 MIK Corado Attending Provider Active S tart: June 06, 2024 End: June 24, 2024 MIK Corado Referring Provider Active S tart: June 06, 2024 End: June 24, 2024 Slitter Helper Relationship Specialty Start Date End Date Yvonne Paniagua [address] [place] [phone] PCP - General Family Medicine 04/16/24 Denis Richey MD [address] [place], [place] [id number] Consulting Physician Gynecologic Oncology 02/21/22 Jeri De Oliveira RN Nurse Navigator Gynecologic Oncology 03/23/22 Ricarda Drew APRN - NET MVC DEVELOPER [address] [place], [place] [id number] Nurse Practitioner Certified Nurse Practitioner 04/06/22 Lupe Mason LOGISTICAL ENGINEER - NET MVC DEVELOPER [address] [place] [address] Nurse Practitioner Nurse Practitioner 07/29/22 Era Richmond MD [address] [place] [phone] Consulting Physician Gynecologic Oncology 09/01/22 Baudilio Castillo MD [address] [place], [place] [phone] Consulting Physician Gynecologic Oncology 04/28/23 Renay Lucas LOGISTICAL ENGINEER - NET MVC DEVELOPER [address] [facility] [address] [place] [address] Registered Nurse Nurse Practitioner 03/01/24 Rosie Fuller APRN - NET MVC DEVELOPER [address] [facility] [address] [place] [address] Nurse Practitioner Nurse Practitioner 05/16/24 Team Status: Active Member Role Status Dates Dr. Denis Richey MD Primary Care Provider Active Start: June 27, 2024 MIK Corado Attending Provider Active S tart: June 27, 2024 MIK Corado Referring Provider Active S tart: June 27, 2024 Team Status: Inactive Member Role Status Dates Dr. Denis Richey MD Primary Care Provider Active Start: July 16, 2024 End: July 16, 2024 Dr. Denis Richey MD Referring Provider Active Start: July 16, 2024 End: July 16, 2024 MIK Corado Attending Provider Active S tart: July 16, 2024 End: July 16, 2024 Slitter Helper Relationship Specialty Start Date End Date Yvonne Paniagua [address] [place] [address] PCP - General Family Medicine 04/16/24 Denis Richey MD [address] [facility] [address] [place] [address] Consulting Physician Gynecologic Oncology 02/21/22 Jeri De Oliveira, RN Nurse Navigator Gynecologic Oncology 03/23/22 Ricarda Drew APRN - NET MVC DEVELOPER [address] [facility] [address] [place] [address] Nurse Practitioner Certified Nurse Practitioner 04/06/22 Lupe Mason LOGISTICAL ENGINEER - NET MVC DEVELOPER [address] [place] [address] Nurse Practitioner Nurse Practitioner 07/29/22 Era Richmond MD [address] [facility] [address] [place] [phone] Consulting Physician Gynecologic Oncology 09/01/22 Baudilio Castillo MD [address] [facility] [address] [place] [address] Consulting Physician Gynecologic Oncology 04/28/23 Renay Lucas APRN - NET MVC DEVELOPER [address] [facility] [address] [place] [address] Registered Nurse Nurse Practitioner 03/01/24 Rosie Fuller APRN - NET MVC DEVELOPER [address] [facility] [address] [place] [address] Nurse Practitioner Nurse Practitioner 05/16/24 Slitter Helper Relationship Specialty Start Date End Date Yvonne Paniagua [address] [place] [phone] PCP - General Family Medicine 04/16/24 Denis Richey MD [address] [facility] [address] [place] [address] Consulting Physician Gynecologic Oncology 02/21/22 Jeri De Oliveira, RN Nurse Navigator Gynecologic Oncology 03/23/22 Ricarda Drew APRN - NET MVC DEVELOPER [address] [facility] [address] [place], [place] [id number] Nurse Practitioner Certified Nurse Practitioner 04/06/22 Lupe Mason APRN - NET MVC DEVELOPER [address] [place] [address] Nurse Practitioner Nurse Practitioner 07/29/22 Era Richmond MD [address] [place] [address] Consulting Physician Gynecologic Oncology 09/01/22 Baudilio Castillo MD [address] [place] [address] Consulting Physician Gynecologic Oncology 04/28/23 Renay Lucas APRN - NET MVC DEVELOPER [address] [place] [address] Registered Nurse Nurse Practitioner 03/01/24 Rosie Fuller APRN - NET MVC DEVELOPER [address] [place] [address] Nurse Practitioner Nurse Practitioner 05/16/24 Team Status: Inactive Member Role Status Dates Dr. Denis Richey MD Primary Care Provider Active Start: June 27, 2024 End: July 24, 2024 MIK Corado Attending Provider Active S tart: June 27, 2024 End: July 24, 2024 MIK Corado Referring Provider Active S tart: June 27, 2024 End: July 24, 2024 Team Status: Inactive Member Role Status Dates Dr. Denis Richey MD Primary Care Provider Active Start: August 07, 2024 End: August 24, 2024 MIK Corado Attending Provider Active S tart: August 07, 2024 End: August 24, 2024 MIK Corado Referring Provider Active S tart: August 07, 2024 End: August 24, 2024 Slitter Helper Relationship Specialty Start Date End Date Yvonne Paniagua [address] [place] [address] PCP - General Family Medicine 04/16/24 Denis Richey MD [address] [place] [address] Consulting Physician Gynecologic Oncology 02/21/22 Jeri De Oliveira, RN Nurse Navigator Gynecologic Oncology 03/23/22 Ricarda Drew, LOGISTICAL ENGINEER - NET MVC DEVELOPER [address] [place], [place] [id number] Nurse Practitioner Certified Nurse Practitioner 04/06/22 Lupe Mason, LOGISTICAL ENGINEER - NET MVC DEVELOPER [address] [place] [address] Nurse Practitioner Nurse Practitioner 07/29/22 Era Richmond MD [address] [place] [phone] Consulting Physician Gynecologic Oncology 09/01/22 Baudilio Castillo MD [address] [place] [address] Consulting Physician Gynecologic Oncology 04/28/23 Renay Lucas, LOGISTICAL ENGINEER - NET MVC DEVELOPER [address] [place] [address] Registered Nurse Nurse Practitioner 03/01/24 Rosie Fuller, LOGISTICAL ENGINEER - [facility] [address] [place] [address] Nurse Practitioner Nurse Practitioner 05/16/24 Slitter Helper Relationship Specialty Start Date End Date Yvonne Paniagua [address] [place] [address] PCP - General Family Medicine 04/16/24 Denis Richey MD [address] [place] [address] Consulting Physician Gynecologic Oncology 02/21/22 Jeri De Oliveira, RN Nurse Navigator Gynecologic Oncology 03/23/22 Ricarda Drew, LOGISTICAL ENGINEER - NET MVC DEVELOPER [address] [place], [place] [id number] Nurse Practitioner Certified Nurse Practitioner 04/06/22 Lupe Mason LOGISTICAL ENGINEER - NET MVC DEVELOPER [address] [place] [address] Nurse Practitioner Nurse Practitioner 07/29/22 Era Richmond MD [address] [place] [phone] Consulting Physician Gynecologic Oncology 09/01/22 Baudilio Castillo MD [address] [place] [address] Consulting Physician Gynecologic Oncology 04/28/23 Renay Lucas, LOGISTICAL ENGINEER - NET MVC DEVELOPER [address] [place] [address] Registered Nurse Nurse Practitioner 03/01/24 Rosie Fuller, LOGISTICAL ENGINEER - NET MVC DEVELOPER [address] [place] [address] Nurse Practitioner Nurse Practitioner 05/16/24 Team Status: Inactive Member Role Status Dates Dr. Denis Richey MD Primary Care Provider Active Start: September 10, 2024 End: September 10, 2024 MIK Corado Attending Provider Active S tart: September 10, 2024 End: September 10, 2024 MIK Corado Referring Provider Active S tart: September 10, 2024 End: September 10, 2024 Slitter Helper Relationship Specialty Start Date End Date SivaYvonne [address] [place] [phone] PCP - General Family Medicine 04/16/24 Denis Richey MD [address] [place], [place] [id number] Consulting Physician Gynecologic Oncology 02/21/22 Jeri De Oliveira, RN Nurse Navigator Gynecologic Oncology 03/23/22 Ricarda Drew, LOGISTICAL ENGINEER - NET MVC DEVELOPER [address] [place], [place] [id number] Nurse Practitioner Certified Nurse Practitioner 04/06/22 Lupe Mason, LOGISTICAL ENGINEER - NET MVC DEVELOPER [address] [place] [address] Nurse Practitioner Nurse Practitioner 07/29/22 Era Richmond MD [address] [place] [phone] Consulting Physician Gynecologic Oncology 09/01/22 Baudilio Castillo MD [address] [place], [place] [id number] Consulting Physician Gynecologic Oncology 04/28/23 Renay Lucas, LOGISTICAL ENGINEER - NET MVC DEVELOPER [address] [place] [address] Registered Nurse Nurse Practitioner 03/01/24 Rosie Fuller, LOGISTICAL ENGINEER - NET MVC DEVELOPER [address] [place], [place] [id number] Nurse Practitioner Nurse Practitioner 05/16/24 Slitter Helper Relationship Specialty Start Date End Date Yvonne Paniagua [address] [place] [phone] PCP - General Family Medicine 04/16/24 Denis Richey MD [address] [place], [place] [id number] Consulting Physician Gynecologic Oncology 02/21/22 Jeri De Oliveira, RN Nurse Navigator Gynecologic Oncology 03/23/22 Ricarda Drew, LOGISTICAL ENGINEER - NET MVC DEVELOPER [address] [place], [place] [id number] Nurse Practitioner Certified Nurse Practitioner 04/06/22 Lupe Mason LOGISTICAL ENGINEER - NET MVC DEVELOPER [address] [place] [address] Nurse Practitioner Nurse Practitioner 07/29/22 Era Richmond MD [address] [place] [phone] Consulting Physician Gynecologic Oncology 09/01/22 Baudilio Castillo MD [address] [place], [place] [phone] Consulting Physician Gynecologic Oncology 04/28/23 Renay Lucas, LOGISTICAL ENGINEER - NET MVC DEVELOPER [address] [place], [place] [id number] Registered Nurse Nurse Practitioner 03/01/24 Rosie Fuller APRN - [facility] [address] [place] [address] Nurse Practitioner Nurse Practitioner 05/16/24 Slitter Helper Relationship Specialty Start Date End Date Kavon Colón MD [address] [place] [address] PCP - General Family Medicine 09/21/23 04/15/24 Yvonne Paniagua [address] [place] [phone] PCP - General Family Medicine 04/16/24 Dneis Richey MD [address] [facility] [address] [place] [address] Consulting Physician Gynecologic Oncology 02/21/22 Jeri De Oliveira, RN Nurse Navigator Gynecologic Oncology 03/23/22 Ricarda Drew APRN - [facility] [address] [facility] [address] [place] [address] Nurse Practitioner Certified Nurse Practitioner 04/06/22 Lupe Mason APRN - NET MVC DEVELOPER [address] [facility] [place] [address] Nurse Practitioner Nurse Practitioner 07/29/22 Era Richmond MD [address] [place] [phone] Consulting Physician Gynecologic Oncology 09/01/22 Baudilio Castillo MD [address] [place] [address] Consulting Physician Gynecologic Oncology 04/28/23 Renay Lucas, LOGISTICAL ENGINEER - [facility] [address] [place] [address] Registered Nurse Nurse Practitioner 03/01/24 Rosie Fuller, LOGISTICAL ENGINEER - [facility] [address] [place] [address] Nurse Practitioner Nurse Practitioner 05/16/24 Slitter Helper Relationship Specialty Start Date End Date Yvonne Paniagua [address] [place] [phone] PCP - General Family Medicine 04/16/24 Denis Richey MD [address] [facility] [place] [address] [place] [address] Consulting Physician Gynecologic Oncology 02/21/22 Jeri De Oliveira, RN Nurse Navigator Gynecologic Oncology 03/23/22 Ricarda Drew, LOGISTICAL ENGINEER - [facility] [address] [place], [place] [id number] Nurse Practitioner Certified Nurse Practitioner 04/06/22 Lupe Mason, LOGISTICAL ENGINEER - NET MVC DEVELOPER [address] [facility] [place] [address] Nurse Practitioner Nurse Practitioner 07/29/22 Era Richmond MD [address] [place] [address] Consulting Physician Gynecologic Oncology 09/01/22 Baudilio Castillo MD [address] [place] [address] Consulting Physician Gynecologic Oncology 04/28/23 Renay Lucas, LOGISTICAL ENGINEER - NET MVC DEVELOPER [address] [place] [address] Registered Nurse Nurse Practitioner 03/01/24 Rosie Fuller, LOGISTICAL ENGINEER - NET MVC DEVELOPER [address] [place] [address] Nurse Practitioner Nurse Practitioner 05/16/24 Slitter Helper Relationship Specialty Start Date End Date Yvonne Paniagua [address] [place] [phone] PCP - General Family Medicine 04/16/24 Denis Richey MD [address] [facility] [place] [address] [place] [address] Consulting Physician Gynecologic Oncology 02/21/22 Jeri De Oliveira, RN Nurse Navigator Gynecologic Oncology 03/23/22 Ricarda Drew, LOGISTICAL ENGINEER - NET MVC DEVELOPER [address] [facility] [address] [place], [place] [id number] Nurse Practitioner Certified Nurse Practitioner 04/06/22 Lupe Mason, LOGISTICAL ENGINEER - NET MVC DEVELOPER [address] [facility] [place] [address] Nurse Practitioner Nurse Practitioner 07/29/22 Era Richmond MD [address] [place] [phone] Consulting Physician Gynecologic Oncology 09/01/22 Baudilio Castillo MD [address] [place] [address] Consulting Physician Gynecologic Oncology 04/28/23 Renay Renee LOGISTICAL ENGINEER - NET MVC DEVELOPER [address] [place] [address] Registered Nurse Nurse Practitioner 03/01/24 Rosie Fuller, LOGISTICAL ENGINEER - NET MVC DEVELOPER [address] [place] [address] Nurse Practitioner Nurse Practitioner 05/16/24 Slitter Helper Relationship Specialty Start Date End Date Yvonne Paniagua [address] [place] [phone] PCP - General Family Medicine 04/16/24 Denis Richey MD [address] [place] [address] Consulting Physician Gynecologic Oncology 02/21/22 Jeri De Oliveira, RN Nurse Navigator Gynecologic Oncology 03/23/22 Ricarda Drew LOGISTICAL ENGINEER - NET MVC DEVELOPER [address] [place], [place] [id number] Nurse Practitioner Certified Nurse Practitioner 04/06/22 Lupe Mason, LOGISTICAL ENGINEER - NET MVC DEVELOPER [address] [place] [address] Nurse Practitioner Nurse Practitioner 07/29/22 Era Richmond MD [address] [place] [address] Consulting Physician Gynecologic Oncology 09/01/22 Baudilio Castillo MD [address] [place] [address] Consulting Physician Gynecologic Oncology 04/28/23 Renay Renee LOGISTICAL ENGINEER - NET MVC DEVELOPER [address] [place] [address] Registered Nurse Nurse Practitioner 03/01/24 Rosie Fuller, LOGISTICAL ENGINEER - NET MVC DEVELOPER [address] [place] [address] Nurse Practitioner Nurse Practitioner 05/16/24 Slitter Helper Relationship Specialty Start Date End Date Yvonne Paniagua [address] [place] [phone] PCP - General Family Medicine 04/16/24 Denis Richey MD [address] [place] [address] Consulting Physician Gynecologic Oncology 02/21/22 Jeri De Oliveira, RN Nurse Navigator Gynecologic Oncology 03/23/22 Ricarda Drew, LOGISTICAL ENGINEER - NET MVC DEVELOPER [address] [place], [place] [id number] Nurse Practitioner Certified Nurse Practitioner 04/06/22 Lupe Mason, LOGISTICAL ENGINEER - NET MVC DEVELOPER [address] [place] [address] Nurse Practitioner Nurse Practitioner 07/29/22 Era Richmond MD [address] [place] [phone] Consulting Physician Gynecologic Oncology 09/01/22 Baudilio Castillo MD [address] [place] [address] Consulting Physician Gynecologic Oncology 04/28/23 Renay Renee LOGISTICAL ENGINEER - [facility] [address] [place] [address] Registered Nurse Nurse Practitioner 03/01/24 Rosie Fuller, LOGISTICAL ENGINEER - NET MVC DEVELOPER [address] [place] [address] Nurse Practitioner Nurse Practitioner 05/16/24 Slitter Helper Relationship Specialty Start Date End Date Kavon Colón MD [address] [place] [address] PCP - General Family Medicine 09/21/23 04/15/24 Denis Richey MD [address] [place] [address] Consulting Physician Gynecologic Oncology 02/21/22 Jeri De Oliveira, RN Nurse Navigator Gynecologic Oncology 03/23/22 Ricarda Drew, LOGISTICAL ENGINEER - [facility] [address] [place], [place] [id number] Nurse Practitioner Certified Nurse Practitioner 04/06/22 Lupe Mason, LOGISTICAL ENGINEER - NET MVC DEVELOPER [address] [place] [address] Nurse Practitioner Nurse Practitioner 07/29/22 Era Richmond MD [address] [place] [address] Consulting Physician Gynecologic Oncology 09/01/22 Baudilio Castillo MD [address] [facility] [address] [place] [address] Consulting Physician Gynecologic Oncology 04/28/23 Renay Renee APRN - NET MVC DEVELOPER [address] [facility] [address] [place] [address] Registered Nurse Nurse Practitioner 03/01/24 Reason for Visit (unrecogniz ed section and content) Reason Comments OP Infusion Specialty Diagnoses / Procedures Referred By Contac t Referred To Contact Diagnoses Endometrial cancer (CMS/HCC) (HCC) Other specified complication of vascular prosthetic devices, implants and grafts, initial encounter ([facility]) Denis Richey MD [address] [facility] [place] [address] [facility] [address] [place] [address] Referral ID Status Reason Start Date Expiration Date V isits Requested Visits Authorized [id number] Pending Review 03/29/2022 09/25/2022 1 1 Reason Onset Date Comments OTHER 07/01/2022 Reason Comments Chemotherapy Reason Comments Endometrial Cancer Chemotherapy Specialty Diagnoses / Procedures [facility] To Contact Diagnoses Endometrial cancer (CMS/HCC) (HCC) Other specified complication of vascular prosthetic devices, implants and grafts, initial encounter ([facility]) Denis Richey MD [address] [facility] [place] [address] [facility] [address] [place] [address] Reason Comments Endometrial Cancer Chemotherapy Reason Comments Chemotherapy Pt has no cocnerns s he says she fills good. Reason Comments New Patient Establish care Hypertension Specialty Diagnoses / Procedures Referred By Contac t Referred To Contact Diagnoses Endometrial cancer (CMS/HCC) (HCC) Other specified complication of vascular prosthetic devices, implants and grafts, initial encounter ([facility]) Denis Richey MD [address] [facility] [place] [address] [place] [address] [facility] [address] [place] [address] Specialty Diagnoses / Procedures Referred By Contac t Referred To Contact Diagnoses Endometrial cancer (CMS/HCC) (HCC) Other specified complication of vascular prosthetic devices, implants and grafts, initial encounter ([facility]) Denis Richey MD [address] [facility] [address] [place] [address] [facility] [address] [place] [address] Specialty Diagnoses / Procedures Referred By Contac t Referred To Contact Diagnoses Endometrial cancer (CMS/HCC) (HCC) Other specified complication of vascular prosthetic devices, implants and grafts, initial encounter ([facility]) Denis Richey MD [address] [facility] [address] [place] [address] [facility] [address] [place] [address] Reason Comments Follow-up Specialty Diagnoses / Procedures Referred By Contac t Referred To Contact Diagnoses Endometrial cancer (CMS/HCC) (HCC) Other specified complication of vascular prosthetic devices, implants and grafts, initial encounter ([facility]) Denis Richey MD [address] [facility] [address] [place] [address] [facility] [address] [place] [address] Reason Onset Date Comments Other 06/28/2023 Inform Provider Reason Onset Date Comments Other 07/11/2023 Inform Provider Specialty Diagnoses / Procedures Referred By Contac t Referred To Contact Cardiology Diagnoses Endometrial cancer (CMS/HCC) (HCC) Encounter for antineoplastic chemotherapy Procedures Transthoracic echocardiogram (TTE) complete with contrast, bubble, strain, and 3D PRN MN ECHO TTHRC R-T 2D W/WOM-MODE COMPL SPEC&COLR D MN TTE W OR WO FOL WCON,DOPPLER Lupe Mason, LOGISTICAL ENGINEER - NET MVC DEVELOPER [address] [facility] [place] [address] Referral ID Status Reason Start Date Expiration Date Visits Re quested Visits Authorized [id number] Closed 07/17/2023 07/16/2024 1 1 Reason Onset Date Comments Other 08/01/[address] still needed Reason Onset Date Comments Results 08/29/2023 Reason Comments Chemotherapy Pt is at the end of a cold no covid, no n/v no appetite issues, pt is staying hydrated, no issues with bowels, no bladder issues. ALA and b complex is helping slightly with neuropathy. Reason Onset Date Comments Other 12/14/2023 Specialty Diagnoses / Procedures Referred By Contac t Referred To Contact Diagnoses Endometrial cancer (CMS/HCC) (HCC) Other specified complication of vascular prosthetic devices, implants and grafts, initial encounter ([facility]) Denis Richey MD [address] [facility] [address] [place] [address] Phone: tel: fax: [address] [address] Phone: tel: Reason Onset Date Comments Other 02/25/2024 Scheduling Reason Onset Date Comments CHEMO SIDE EFFECTS 04/06/2022 Reason Comments Social Work Reason Onset Date Comments Other 03/21/2024 Unable to contac t pt Reason Onset Date Comments Other 04/10/2024 Surgery [facility] Specialty Diagnoses / Procedures Referred By Contac t Referred To Contact Diagnoses Endometrial cancer (CMS/HCC) (HCC) Other specified complication of vascular prosthetic devices, implants and grafts, initial encounter ([facility]) Denis Richey MD [address] [facility] [address] [place] [address] Phone: tel: fax: [facility] [address] [place] [address] Phone: tel: Referral ID Status Reason Start Date Expiration Date V isits Requested Visits Authorized [id number] Authorized 05/08/2024 05/03/2025 1 1 Reason Comments Follow-up Chemo Reason Onset Date Comments Test Scheduling 05/23/2024 Reason Comments Chemotherapy Endometrial Cancer Reason Comments Follow-up C7 keytruda.. per pt states hair falling out. States first noticed it about 2 months ago. Specialty Diagnoses / Procedures Referred By Asmita martino Referred To Contact Diagnoses Endometrial cancer (HCC) Other specified complication of vascular prosthetic devices, implants and grafts, initial encounter Denis Richey MD [address] [facility] [address] [place] [address] Phone: tel: fax: [facility] [address] [place] [address] Phone: tel: Referral ID Status Reason Start Date Expiration Date Visits Re quested Visits Authorized [id number] Closed 03/29/2022 09/25/2022 1 1 Scheduled Active and Recently Administ ered Medications (unrecognized section and content) Medication Order 04/15/2024 04/16/2024 04/17/2024 acetaminophen (Tylenol) tablet 1,000 mg (COMPLETED) 1,000 mg, Oral, Once, On Mon04/16/24 at 1215, For 1 dose, Preprocedure, Maximum dose of acetaminophen is 4000 mg from all sources in 24 hours. Do not administer if patient has taken tylenol <4 hours earlier. Do not give if contraindicated ie. patient has active liver disease or cirrhosis. Please administer 60 min prior to procedure. 1239 (Given - Provider: Joy Conteh RN) acetaminophen (Tylenol) tablet 1,000 mg 1,000 mg, Oral, Every 8 hours, First dose on Mon04/16/24 at 2200, Maximum dose of acetaminophen is 4000 mg from all sources in 24 hours. 2119 (Given - Provider: Bindu Cast RN) 0600 (Not Given - Provider: Bindu Cast RN - Reason: Patient/family refused)1400 (Canceled Entry - Provider: Automatic Discharge Provider - Comment: Automatically canceled at discontinue of medication order) famotidine (Pepcid) tablet 20 mg (COMPLETED)(Linked Group 1) 20 mg, Oral, Once, On Mon04/16/24 at 1215, For 1 dose, Preprocedure, IV or ORAL 1239 (Given - Provider: Joy Conteh RN) ketorolac (Toradol) injection 15 mg 15 mg, IntraVENous, Every 6 hours, First dose on Mon04/16/24 at 1800, For 4 doses, Do not administer within 6 hours of other NSAIDs (such as ibuprofen or naproxen). 2119 (Not Given - Provider: Bindu Cast RN - Reason: Patient/family refused) 0000 (Not Given - Provider: Bindu Cast RN - Reason: Patient/family refused)0600 (Not Given - Provider: Bindu Cast RN - Reason: Patient/family refused)1200 (Canceled Entry - Provider: Automatic Discharge Provider - Comment: Automatically canceled at discontinue of medication order) sodium chloride 0.9% (NS) flush 10 mL 10 mL, IntraVENous, Every 12 hours scheduled (2 times per day), First dose on Mon04/16/24 at 2100, Phase II/On Unit 2100 (Given - Provider: Bindu Cast RN) 1012 (Given - Provider: Chloe Navarrete RN) Continuous Medication Order 04/15/2024 04/16/2024 04/17/2024 lactated Ringer's (LR) infusion (CANCELED) 50 mL/hr, IntraVENous, Continuous, Starting on Mon04/16/24 at 1215, Preprocedure, Upon admission to sameday - please start iv if patient does not have iv access. Use 500ml NS for patients on dialysis. 1250 (New Bag - Provider: Joy Conteh RN)1317 (Continued by Anesthesia - Provider: Catina Anguiano APRN - KILN DOOR REPAIRER)1420 (Anesthesia Volume Adjustment - Provider: Catina Anguiano APRN - MARCELLA)1427 (Anesthesia Volume Adjustment - Provider: Catina Anguiano APRN - MARCELLA) PRN Medication Order 04/15/2024 04/16/2024 04/17/2024 ALPRAZolam (Xanax) disintegrating tablet 0.25 mg (COMPLETED) 0.25 mg, Oral, Once PRN, anxiety, Starting on Mon04/16/24 at 1214, For 1 dose, Preprocedure, Please do not administer prior to obtaining consent and / or history and physical. 1239 (Given - Provider: Joy Conteh RN) hydrALAZINE (Apresoline) injection 5 mg (COMPLETED)(Linked Group 2) 5 mg, IntraVENous, Every 15 min PRN, high blood pressure, for SBP greater than 160 mmHg for 2 consecutive measurements taken from different sites, Starting on Mon04/16/24 at 1423, For 2 doses, Recovery (only), PRN for SBP > 160 for 2 consecutive measurements, and if one of the following conditions is met: 1) If IV labetolol is ineffective. 2) If HR is under 60. 3) If patient has heart block, COPD or asthma. If both labetalol and hydralazine ineffective, notify anesthesia provider. 1438 (See Alternative - Provider: Chacha Fernandez RN)1504 (Given - Provider: Chacha Fernandez RN) HYDROmorphone (Dilaudid) injection 0.25 mg (CANCELED) 0.25 mg, IntraVENous, Every 5 min PRN, moderate pain (4-6), Starting on Mon04/16/24 at 1423, For 4 doses, Recovery (only), Phase I and Phase II- Initial therapy for moderate pain (4-6). Restricted to a 90 minute time frame starting when the patient can verbally state their pain score. If after 2 doses the pain score does not decrease by more than one point, then call the provider. If oral meds are utilized, do not return to initial therapy medications. 1513 (Given - Provider: Chacha Fernandez RN) labetalol (Normodyne,Trandate) injection 5 mg (COMPLETED)(Linked Group 2) 5 mg, IntraVENous, Every 10 min PRN, high blood pressure, for SBP greater than 160 mmHg for 2 consecutive measurements taken from different sites., Starting on Mon04/16/24 at 1423, For 2 doses, Recovery (only), PRN for SBP >160 for 2 consecutive measurements, if HR is 60 or greater. If beta carolina is contraindicated (HR less than 60, heart block, COPD or asthma) use hydralazine IV order. 1438 (Given - Provider: Chacha Fernandez RN)1504 (See Alternative - Provider: Chacha Fernandez RN) naloxone (Narcan) injection 0.4 mg 0.4 mg, IntraVENous, Every 5 min PRN, opioid reversal, respiratory depression, Starting on Mon04/16/24 at 1744, +++ For RR <10, pinpoint pupils, over sedation for opioid reversal - MUST notify international flight attendant provider immediately after first dose, may give IM or SQ if no IV access +++ ondansetron (Zofran) injection 4 mg(Linked Group 3) 4 mg, IntraVENous, Every 6 hours PRN, nausea, vomiting, Starting on Mon04/16/24 at 1742, Phase II/On Unit, 1st Line. Give IV if patient is unable to take orally. If inadequate response within 60 minutes, proceed to next-line agent or contact provider if no further options ordered. ondansetron ODT (Zofran-ODT) disintegrating tablet 4 mg(Linked Group 3) 4 mg, Oral, Every 8 hours PRN, nausea, vomiting, Starting on Mon04/16/24 at 1742, Phase II/On Unit, 1st Line. If inadequate response within 60 minutes, proceed to next-line agent or contact provider if no further options ordered. Patient should allow tablet to dissolve on tongue. Do not remove from blister pack until just before administering. oxyCODONE (Roxicodone) immediate release tablet 10 mg(Linked Group 4) 10 mg, Oral, Every 4 hours PRN, severe pain (7-10), Starting on Mon04/16/24 at 1742, Phase II/On Unit oxyCODONE (Roxicodone) immediate release tablet 5 mg(Linked Group 4) 5 mg, Oral, Every 4 hours PRN, moderate pain (4-6), Starting on Mon04/16/24 at 1742, Phase II/On Unit polyethylene glycol (PEG) 3350 (Miralax) packet 17 g 17 g, Oral, Daily PRN, constipation, Starting on Mon04/16/24 at 1742, Phase II/On Unit, 1st line for treatment of constipation - give scheduled if no bowel movement in past 24 hours. senna-docusate sodium (Senokot-S) 8.6-50 MG tablet 2 tablet 2 tablet, Oral, Daily PRN, constipation, Starting on Mon04/16/24 at 1742, Phase II/On Unit, 2nd line for constipation sodium chloride 0.9 % infusion 5-250 mL/hr, IntraVENous, PRN, if patient receiving piggyback infusions and maintenance fluids are not ordered OR KVO fluids to protect IV site / prevent frequent line interruptions/ long duration, Starting on Mon04/16/24 at 1742, Phase II/On Unit, For piggyback infusion, administer at same rate as piggyback for a total of 25 mL. Enter 25 mL into dose field and piggyback rate into rate field of order. If piggyback is infusing at a rate less than 100 mL/hr, enter 25 mL into dose field and 100 mL/hr into rate field of order. For KVO fluids, enter rate of 20 mL/hr or less into rate field of order. sodium chloride 0.9% (NS) flush 10 mL 10 mL, IntraVENous, PRN, line care, Starting on Mon04/16/24 at 1742, Phase II/On Unit, After every IV line use Linked Groups Order Group 1: famotidine (Pepcid) tablet 20 mg (COMPLETED)Jump to med 20 mg, Oral, Once, On Mon04/16/24 at 1215, For 1 dose, Preprocedure, IV or ORAL Or famotidine (Pepcid) 20 mg in sodium chloride (PF) 0.9 % 10 mL injection (COMPLETED) 20 mg, IntraVENous, Administer over 2 Minutes, Once, On Mon04/16/24 at 1215, For 1 dose, Preprocedure, IV or ORAL Group 2: labetalol (Normodyne,Trandate) injection 5 mg (COMPLETED)Jump to med 5 mg, IntraVENous, Every 10 min PRN, high blood pressure, for SBP greater than 160 mmHg for 2 consecutive measurements taken from different sites., Starting on Mon04/16/24 at 1423, For 2 doses, Recovery (only), PRN for SBP >160 for 2 consecutive measurements, if HR is 60 or greater. If beta carolina is contraindicated (HR less than 60, heart block, COPD or asthma) use hydralazine IV order. Or hydrALAZINE (Apresoline) injection 5 mg (COMPLETED)Jump to med 5 mg, IntraVENous, Every 15 min PRN, high blood pressure, for SBP greater than 160 mmHg for 2 consecutive measurements taken from different sites, Starting on Mon04/16/24 at 1423, For 2 doses, Recovery (only), PRN for SBP > 160 for 2 consecutive measurements, and if one of the following conditions is met: 1) If IV labetolol is ineffective. 2) If HR is under 60. 3) If patient has heart block, COPD or asthma. If both labetalol and hydralazine ineffective, notify anesthesia provider. Group 3: ondansetron ODT (Zofran-ODT) disintegrating tablet 4 mgJump to med 4 mg, Oral, Every 8 hours PRN, nausea, vomiting, Starting on Mon04/16/24 at 1742, Phase II/On Unit, 1st Line. If inadequate response within 60 minutes, proceed to next-line agent or contact provider if no further options ordered. Patient should allow tablet to dissolve on tongue. Do not remove from blister pack until just before administering. Or ondansetron (Zofran) injection 4 mgJump to med 4 mg, IntraVENous, Every 6 hours PRN, nausea, vomiting, Starting on Mon04/16/24 at 1742, Phase II/On Unit, 1st Line. Give IV if patient is unable to take orally. If inadequate response within 60 minutes, proceed to next-line agent or contact provider if no further options ordered. Group 4: oxyCODONE (Roxicodone) immediate release tablet 5 mgJump to med 5 mg, Oral, Every 4 hours PRN, moderate pain (4-6), Starting on Mon04/16/24 at 1742, Phase II/On Unit Or oxyCODONE (Roxicodone) immediate release tablet 10 mgJump to med 10 mg, Oral, Every 4 hours PRN, severe pain (7-10), Starting on Mon04/16/24 at 1742, Phase II/On Unit FOR RECORDS PERTAINING TO PATIENTS WHO ARE OR HAVE BEEN ENROLLED IN A CHEMICAL DEPENDENCY/SUBSTANCEABUSE PROGRAM, SOME INFORMATION MAY BE OMITTED. This clinical summary was aggregated from multiple sources. Caution should be exercised in using it in the provision of clinical care. This summary normalizes information from multiple sources, and as a consequence, information in this document may materially change the coding, format and clinical context of patient data. In addition, data may be omitted in some cases. CLINICAL DECISIONS SHOULD BE BASED ON THE PRIMARY CLINICAL RECORDS. [employer] [facility]. provides no warranty or guarantee of the accuracy or completeness of information in this document.
--- NOTE | 2025-03-04 07:30 | PET_ITS ---
PROCEDURE: PET/CT TUMOR BASE -THIGH SUBS 03/04/2025 REASON FOR EXAM: 74 y/o F with ENDOMETRIAL TECHNIQUE: Procedure Code: [id number] Modality: PT Procedure: PET/CT TUMOR BASE -THIGH SUBS Following the intravenous administration of radionucleotide, image acquisition on a dedicated PET/CT unit was performed at one hour post injection. A preliminary CT study encompassing the Skull base, neck, chest, abdomen, pelvis, and proximal thighs was performed for purposes of attenuation correction and anatomic localization. The proximal thighs were also included. The patient's blood glucose level was mg/dL (allowable range: 50-180 mg/dL). RADIOPHARMACEUTICAL: mCi 18F-FDG (Fluorodeoxyglucose F18) IV was injected into he patient. RADIATION DOSE SUMMARY: Effective Dose: Approximately 7 mSv for a standard whole-body PET scan Organ Doses: Varies by organ, with higher doses typically to the bladder, liver, and brain COMPARISON: COMPARISON FROM CT, PET OR OTHER PERTINENT EXAMS: Including a PET-CT of 09/10/2024 and 04/02/2024.. FINDINGS: Physiologic uptake: There may be expected metabolic uptake within the brain, tongue and floor of the mouth and larynx/vocal cords, heart, kali, liver and spleen, system, and GI tract and symmetric muscle uptake. FDG AVID AND NON-AVID LESIONS. Reported avid SUV values (g/mL*) are maximum SUV. Mediastinal background SUVmax: 2.91 3.72 Hepatic background SUVmax: Head and brain: PET findings: Imaged age-appropriate brain. CT findings: No focal abnormal metabolic activity. Neck: CT findings: No focal mass. The oropharynx, hypopharynx and larynx otherwise negative. No cervical adenopathy. Thyroid gland negative. PET findings: No abnormal metabolic activity. Chest: CT findings: No other pulmonary nodules or masses. No mediastinal, hilar or axillary adenopathy. Imaged thoracic aorta negative. Dependent atelectatic changes seen in the lower lobes bilaterally. No suspicious mass or pulmonary nodule. PET findings: No abnormal metabolic activity. Abdomen: CT findings: Stable 8 cm cyst in the right hepatic lobe. Additional smaller cysts present in the liver, stable. No intrahepatic or extrahepatic ductal dilatation. Gallbladder negative. Adrenal glands negative without mass. No renal mass. Stable left renal cysts. The adrenal glands, spleen and pancreas appear normal. The gallbladder is unremarkable. No retroperitoneal lymphadenopathy seen. Atherosclerosis of the aorta. Large amount of stool in the colon. PET findings: No abnormal metabolic activity. Pelvis: CT findings: No inguinal or iliac adenopathy. No focal mass. Status post hysterectomy. No adnexal mass. Normal bladder. PET findings: No abnormal metabolic activity. Bones: CT findings: Age-appropriate degenerative changes of the spine. Age-appropriate degenerative changes of the shoulders and hips. Negative for lytic or sclerotic lesions. PET findings: No focal abnormal metabolic activity. Degenerative uptake seen about the right shoulder effusion. Multilevel degenerative disc disease and spondylosis with a grade 1 anterolisthesis of L4 on L5. PET/PET/CT Tumor Base -Thigh Subs IMPRESSION: FDG avid- No significant avid lesions. No evidence of recurrent or metastatic disease. Suspicious- No significant suspicious abnormalities. Reading Location: [facility]
== END 2025-03-04 23:59 | disposition home or self-care (01) ==
LOC: ONC 07:16
PROVIDERS: PCP Obstetrics & Gynecology Gynecologic Oncology; Referring Provider Nurse Practitioner Adult Health; Visit Provider Nurse Practitioner Adult Health
DX: C54.1 Malignant neoplasm of endometrium (principal)
CPT/HCPCS: 78815; A9552